=== PATIENT | female | born 1945 | race Caucasian/White ===

== ENCOUNTER 2019-06-20 08:15 | Inpatient (IN) | payer MEDICARE, MEDICAID, SELFPAY ==
[2019-06-20] VITALS (39 sets, daily range): BP systolic 72–159; BP diastolic 48–94; PULSE 54–79; RESP 15–32; TEMP 36.5–37.1; O2SAT 75–96; BMI 27.4
--- NOTE | 2019-06-20 08:30 | CT_ITS ---
WS: [id number] CT THORACIC SPINE HISTORY: fall/trauma/pain TECHNIQUE: Contiguous 2.5 mm axial images are reviewed to thoracic spine. Images are reformatted in s agittal and coronal planes. All CT scans at [facility] use at least one of these dose opt imization techniques: automated exposure control; mA and/or kV adjustment per patient size (includes targeted exams where dose is matched to clinical indication); or iterative reconstruction. DLP: 1604.62 mGy.cm COMPARISON: None available. Diffuse osteopenia with mild increase in thoracic kyphosis. 10% compression fracture involving the superior endplate of T11. There is no retropulsion of the vert ebral body. No fracture is noted into the posterior elements. Incompletely visualized L1 burst fractu re will be described on the lumbar CT. Nondisplaced fracture involving the LEFT transverse process of T12. Nondisplaced L1 transverse process fracture on the LEFT. No acute disc herniations or compromise of the central canal. Moderate size RIGHT paracentral disc pr otrusion at T8-9. Smaller RIGHT paracentral disc protrusion at T9-10. No significant cord compression . Atherosclerosis of the aorta. Visualized lungs are clear. CT/CT thoracic spin wo con* [id number] IMPRESSION: 1. Acute T11 compression fracture without retropulsion. 2. L1 burst compression fracture is incompletely visualized and will be better described on the CT lumbar spine to follow. 3. Nondisplaced T12 LEFT transverse process fracture. 4. Nondisplaced LEFT L1 transverse process fracture.
--- NOTE | 2019-06-20 08:30 | ECG_ITS ---
Measurements Intervals [place] Rate: 64 P: 77 DC: 138 QRS: 83 QRSD: 101 T: 75 QT: 409 QTc: 425 SINUS RHYTHM No previous ECG available for comparison Electronically Signed On 06-21-2019 16:29:05 CDT by Jayna Jennings M.D. [email or web address]
--- NOTE | 2019-06-20 08:30 | CT_ITS ---
WS: [id number] CT LUMBAR SPINE, noncontrast. HISTORY: fall/trauma; pain TECHNIQUE: Contiguous 2.5 mm axial imaging are performed. Sagittal and coronal reformats are submitte d and reviewed. All CT scans at [facility] use at least one of these dose optimization te chniques: automated exposure control; mA and/or kV adjustment per patient size (includes targeted exa ms where dose is matched to clinical indication); or iterative reconstruction. IV contrast: None DLP: 2005.96 mGy.cm COMPARISON: None available. L4 anterolisthesis by 2.5 mm. L1 mild burst compression fracture. There is a fracture that extends from anterior to posterior throu gh the superior portion of the vertebral body. There is anterior and posterior retropulsion of fragme nts. Posterior retropulsion by 4.8 mm. There is mild contact on the RIGHT lateral thecal sac and exte nding into the subarticular recess. There is contact on the RIGHT lateral thecal sac and probably the L1 nerve root. Nondisplaced LEFT L1 transverse process fracture. Nondisplaced LEFT L2 transverse process fracture. Nondisplaced LEFT L3 transverse process fracture. Mildly hyperdense mass in the posterior mid LEFT kidney measures 1.6 cm. Not identified on prior imag ing studies. Moderate atherosclerosis aorta. CT/CT lumbar spine wo con* [id number] IMPRESSION: 1. Mild L1 burst fracture with retropulsion by 4.8 mm and mild contact upon th e thecal sac and into the RIGHT subarticular recess. 2. Nondisplaced LEFT transverse process fractures at L1, L2 and L3. 3. Mildly hyperdense mass in the posterior mid LEFT kidney measures 1.6 cm. No t seen on prior studies. 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 Recommend fol low-up imaging evaluation. [address] evaluation would be most helpful and can be obtained on a nonurgent basis. 4.
--- NOTE | 2019-06-20 08:30 | CT_ITS ---
WS: [id number] CT HEAD NONCONTRAST HISTORY: dizziness TECHNIQUE: Contiguous axial imaging performed through the brain in 2.5 mm imaging. Bone and soft tiss ue windows. Sagittal and coronal reformats reviewed. All CT scans at [facility] use at ast one of these dose optimization techniques: automated exposure control; mA and/or kV adjustment pe r patient size (includes targeted exams where dose is matched to clinical indication); or iterative r econstruction. DLP: 1276.73 mGy.cm COMPARISON: 05/16/2006 No acute intracranial hemorrhage, midline shift or mass effect. Mild atrophy and mild chronic microvascular ischemic disease. Small lacunar infarct external capsule on the RIGHT. Moderate progression of chronic ischemic changes since the 2006 examination. There is a n area of decreased attenuation in the RIGHT frontotemporal lobe which could be a subacute infarct. T here is also mild cerebellar atrophy. Ventricles: Normal size with no hydrocephalus. Paranasal sinuses: As visualized are clear. Mastoid air cells: Well pneumatized. Calvarium and scalp: Skull is intact with no soft tissue edema or swelling. CT/CT head wo con* [id number] IMPRESSION: 1. No acute intracranial hemorrhage or edema. 2. Moderate chronic microvascular ischemic changes. Mild progression of ischem ic changes. Subacute infarct RIGHT frontal temporal region is not excluded but this may simply be progression of chronic ischemic disease.
--- NOTE | 2019-06-20 08:31 | XR_ITS ---
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 Hyperinflated lungs with no pneumonia. Chronic emphysema with normal vasculature. No pleural effusion or pneumothorax. Cardiac size: Mildly enlarged cardiac silhouette. Mediastinum/Aorta: Mild atherosclerosis aorta. Bones are severely osteopenic. Deformity RIGHT humeral head from prior fracture. XR/XR chest 1V portable [id number] IMPRESSION: Chronic emphysema and cardiomegaly. No acute cardiopulmonary disease.
--- NOTE | 2019-06-20 08:32 | ED_ITS ---
Documented by User: DOROTEO Martinez 06/20/19 12:42 HPI - Fall General: Chief Complaint: Fall Stated Complaint: fall, dizziness Time Seen by Provider: 06/20/19 08:16 Source: patient and EMS Mode of arrival: EMS Limitations: no limitations History of Present Illness: HPI Narrative: Patient is a 73-year-old female who presents to ED today after being brought by EMS for complaints of dizziness and a fall that occurred prior to arrival. Patient tells me she has been experiencing dizziness over the past week. She initially was seen by her PCP Dr. Salazar who recommended she begin doing Pedro maneuvers at home. She was seen again on 06/14 at an urgent care facility and diagnosed with labyrinthitis. She was given steroids in office and prescribed meclizine. Patient tells me she does feel like the maneuvers and meclizine was helping with the dizziness. She would often have periods where she would be dizzy free. She states earlier today she bent over to untie her dog when she became dizzy and fell. She is complaining of mid to lower back pain. She apparently was ambulatory when EMS arrived. Patient denies tinnitus or hearing loss. She has had no trauma or discharge from the ear. She does not complain of nausea/vomiting, headache, visual changes, slurred speech, facial drooping, numbness/tingling to face or extremities or weakness. MD complaint: fall and other (dizziness) Onset (ago): week(s) Fall from: standing Fall witnessed: no Place fall occurred: home Loss of consciousness: None Prolonged down time: no Symptoms prior to fall: dizziness Location of injury: back Associated symptoms-after fall: Reports vertigo; Denies abdominal pain, chest pain, headache(s), lightheadedness or neck pain Review of Systems General: Reports: 10 or more systems reviewed and unremarkable except in HPI and below Const: Denies: fever(s), chills, body aches or fatigue Eyes: Denies: change in vision, blurry vision, photophobia, eye discomfort, eye discharge, floaters or seeing flashes ENMT: Denies: throat pain, enlarged tonsils, odynophagia, swelling of lips/tongue, oral sores, dental pain, ear or mastoid pain, ear discharge, change in hearing, tinnitus, nasal discharge, nasal congestion, epistaxis, post nasal drip or sinus pain Card: Denies: chest pain, palpitations, irregular heart rhythm, edema, lightheadedness, syncope or pre-syncope Resp: Reports: dyspnea (chronic-COPD) GI: Denies: abdominal pain, nausea, vomiting or diarrhea Musc: Reports: back pain (from fall today); Denies: neck pain, extremity pain, extremity swelling, joint pain or joint swelling Skin/Breast: Denies: rash Neuro: Reports: dizziness and vertigo; Denies: headache(s), numbness in extremities, weakness in extremities or sensory changes All/Imm: Denies: facial swelling or seasonal rhinorrhea PFSH ED PFSH: Medical History (Updated 06/20/19 @ 16:27 by Pepito Oh MD) COPD (chronic obstructive pulmonary disease) Chronically uses 2 L per nasal cannula Coronary artery disease Depression Diabetes mellitus type 2 in obese Nephrolithiasis Peripheral neuropathy Surgical History (Updated 06/20/19 @ 16:27 by Pepito Oh MD) History of ankle surgery History of appendectomy History of bladder surgery History of carpal tunnel surgery History of cataract surgery History of shoulder surgery Hx of CABG 2004 Family History (Updated 06/20/19 @ 16:27 by Pepito Oh MD) Other Dementia Social History (Updated 06/20/19 @ 16:28 by Pepito Oh MD) Smoking and tobacco status: current every day smoker Alcohol intake: never Substance/Drug Use: never Physical Exam Const: COMMON NORMALS: average body habitus, patient oriented x3, no ocampo itations, healthy appearing, alert and well nourished GENERAL APPEARANCE: in distress (mild-complains of back pain) ORIENTATION/CONSCIOUSNESS: Yes oriented to person, Yes oriented to place and Yes oriented to time HENMT: COMMON NORMALS: normocephalic, atraumatic, hearing grossly normal bilaterally, external ears normal, EAC's normal, Normal external nose present, Normal nasal mucous membranes and turbinates present, moist oral mucous membranes and oropharynx normal HEAD & SCALP: normal to inspection, normocephalic and atraumatic FACE & SINUS: normal facial exam and sinuses nontender NOSE: Normal external nose present, Normal nares present and Normal nasal mucous membranes and turbinates present EXTERNAL EAR: Yes external ears normal EXTERNAL AUDITORY CANAL: EAC's normal TYMPANIC MEMBRANE: TM normal on the left and TM abnormal (mild fluid behind R) MOUTH: Normal oral and palatal mucosa present, lip normal and tongue normal THROAT: posterior oropharynx normal, tonsils normal and uvula midline Eye: COMMON NORMALS: Equal, round and reactive pupils present, EOMs intact bilaterally, conjunctivae normal and no scleral icterus GENERAL EYE: appearance normal, both eyes and all related structures VISUAL ACUITY: Yes acuity normal CONJUNCTIVA: Yes conjunctivae normal PUPIL: Yes Equal, round and reactive pupils present OTHER: no nystagmus Neck/C-Spine: COMMON NORMALS: full ROM, no lymphadenopathy and no meningeal signs Chest: COMMONS NORMALS: normal inspection of the chest and normal palpation of entire chest wall Resp: COMMON NORMALS: normal respiratory effort and clear to auscultation bilaterally AUSCULTATION: clear to auscultation bilaterally Cardio: COMMON NORMALS: regular rate and regular rhythm RATE: regular rate RHYTHM: regular rhythm GI: COMMON NORMALS: Normal to inspection, nondistended, normoactive bowel sounds present, Soft to palpation, non-tender, No hepatosplenomegaly present and no masses PALPATION: Yes Soft to palpation and Yes No hepatosplenomegaly present : COMMON NORMALS: Yes no CVA tenderness BLADDER/KIDNEY EXAM: Yes no CVA tenderness Back/Pelvis: COMMON NORMALS: no CVA tenderness THORACIC SPINE/UPPER BACK: Yes thoracic spinal tenderness (lower T spine) and No paraspinal muscle tenderness LUMBAR SPINE/LOWER BACK: Yes lumbar spinal tenderness (upper L spine) and No paraspinal muscle tenderness SACROILIAC JOINTS: Yes SI joints normal Extremity: COMMON NORMALS: normal to inspection and full ROM Neuro: ROBERTO COMA SCALE: document GCS findings Roberto coma scale eye opening: Spontaneous Roberto coma scale verbal response: Orientated [place] coma scale motor response: Obey commands Roberto coma scale total score: 15 COMMON NORMALS: patient oriented x3, CN's II-XII intact bilaterally, moves all extremities, no focal motor deficits and no sensory deficits noted SENSORIUM/ORIENTATION: Yes alert, Yes oriented to person, Yes oriented to place and Yes oriented to time MENINGEAL SIGNS: Yes no meningeal signs COORDINATION/BALANCE: [id number]-rl-[id number] test normal and fbod-kl-soul test normal SPEECH: speech normal MOTOR EXAM: 5/5 motor strength present throughout COORDINATION: rbbeve-qw-gzdb test normal and ggzn-kv-jhmv test normal Skin: COMMON NORMALS: no rashes or lesions noted GENERAL SKIN EXAM: no rashes or lesions noted Course Consultations: Consultation #1: Dr. Alfaro-stated if patient was stable to DC (would need to assess fall risk factors and recommended she have someone stay with her at all times) then we could place her in TLSO brace and he would see in office in 2 weeks; contact him again after decision was made to admit patient and he stated he would be willing to consult on patient while in the hospital. Vital Signs: Vital signs: Vital Signs Temperature 97.6 F 06/21/19 12:00 Pulse Rate 67 06/21/19 12:00 Respiratory Rate 18 06/21/19 13:09 Blood Pressure 111/62 06/21/19 12:00 Pulse Oximetry 94 06/21/19 12:00 MDM - Fall MDM Narrative: Medical decision making narrative: Patient is a nice 73-year-old female who presents to ED today with complaints of dizziness x1 week and a fall. Patient has multiple back fractures including a compression fracture at T11, a burst fracture at L1 with retropulsion, and nondisplaced left T12, L1, L2, L3 transverse process fractures. She is complained of dizziness over the past week. She is an uncontrolled noncompliant diabetic (reports nor bhanu sugars run in the 320s). Patient lives alone. Given the entire clinical picture I feel patient is too much of a fall risk to be discharged home. Spoke to Dr. Franks and we will admit to hospitalist for further evaluation, pain control, and possible placement into a longterm facility. Lab Data: Labs: Lab Results 06/20/19 06/20/19 06/20/19 Range/Units 09:34 09:34 09:34 WBC 12.7 H (4.0-10.0) 10^3/ uL RBC 5.88 H (4.1-5.3) 10^6/u L Hgb 17.1 H (11.5-15.3) g/dL Hct 53.8 H (37.0-47.0) % MCV 91.5 (81-99) fL MCH 29.1 (28.0-34.0) pg MCHC 31.8 (30.0-36.0) g/dL RDW 14.0 (12.1-15.1) % Plt Count 272 (130-400) 10^3/c mm MPV 9.3 (7.4-10.4) fL Neut % (Auto) 76.2 % Lymph % (Auto) 15.0 % [place] % (Auto) 4.6 % Eos % (Auto) 1.6 % Baso % (Auto) 0.9 % Neut # (Auto) 9.7 H (1.8-7.7) 10^3/u L Lymph # (Auto) 1.9 (0.8-4.8) 10^3/u L [place] # (Auto) 0.6 (0.2-0.9) 10^3/u L Eos # (Auto) 0.2 (0.0-0.8) 10^3/u L Baso # (Auto) 0.1 (0.0-0.1) 10^3/u L Nucleated RBC % (a uto) 0 % Nucleated RBCs # 0.0 /100WBC Specimen Type Sample Site ABG pH (7.35-7.45) ABG pCO2 (35-45) mmHg ABG pO2 (80.0-100.0) mmH g ABG HCO3 (22-26) mmol/L ABG O2 Saturation ABG Base Excess (-2.0-2.0) mmol/ L David Test A-a O2 Gradient (5-10) mmHg Hematocrit (37-47) % Hgb O2 Saturation (95-100) % Carboxyhemoglobin (0.4-20.1) %THgb Methemoglobin (0.4-1.5) % Total Hemoglobin (12-16) g/dL Ionized Calcium (1.1-1.4) mmol/L O2 Delivery Device O2 Liters/Min % FiO2 % [employer] Tester ID Sodium 136 (136-145) mmol/L Potassium 6.0 H (3.5-5.1) mmol/L Chloride 94 L (98-107) mmol/L Carbon Dioxide 30 H (22-29) mmol/L Anion Gap 18.0 (5-19) BUN 17 (8-23) mg/dL Creatinine 0.9 (0.5-0.9) mg/dL Glucose 396 H (65-115) mg/dL Calculated Osmolal ity 295 (285-295) mOsm/k g Calcium 10.6 H (8.5-10.5) mg/dL Magnesium 1.7 (1.7-2.3) mg/dL Total Bilirubin 0.6 (0.15-1.2) mg/dL AST 17 (0-32) U/L ALT 22 (0-33) U/L Alkaline Phosphata se 99 (35-105) IU/L Total Protein 8.0 (6.6-8.7) g/dL Albumin 4.1 (3.5-5.2) g/dL Globulin 3.9 (1.3-4.6) g/dL Urine Color (Yellow) Urine Appearance (CLEAR) Urine pH (5-7) Ur Specific Gravit y (1.005-1.030) Urine Protein (Negative) Urine Glucose (UA) (Normal) Urine Ketones (Negative) Urine Blood (Negative) Urine Nitrate (Negative) Urine Bilirubin (NEGATIVE) Urine Urobilinogen (Negative) mg/dL Ur Leukocyte Yusra ase (Negative) Urine RBC (0-2) /hpf Urine WBC (0-5) /hpf Ur Squamous Epith Cells (0-5) Urine Bacteria (NONE) Serum Ketones Negative (Negative) 06/20/19 06/20/19 06/20/19 Range/Units 09:50 10:30 12:05 WBC (4.0-10.0) 10^3/ uL RBC (4.1-5.3) 10^6/u L Hgb (11.5-15.3) g/dL Hct (37.0-47.0) % MCV (81-99) fL MCH (28.0-34.0) pg MCHC (30.0-36.0) g/dL RDW (12.1-15.1) % Plt Count (130-400) 10^3/c mm MPV (7.4-10.4) fL Neut % (Auto) % Lymph % (Auto) % [place] % (Auto) % Eos % (Auto) % Baso % (Auto) % Neut # (Auto) (1.8-7.7) 10^3/u L Lymph # (Auto) (0.8-4.8) 10^3/u L [place] # (Auto) (0.2-0.9) 10^3/u L Eos # (Auto) (0.0-0.8) 10^3/u L Baso # (Auto) (0.0-0.1) 10^3/u L Nucleated RBC % (a uto) % Nucleated RBCs # /100WBC Specimen Type Arterial Sample Site Radial, right ABG pH 7.31 L (7.35-7.45) ABG pCO2 57.0 H (35-45) mmHg ABG pO2 74.1 L (80.0-100.0) mmH g ABG HCO3 28.5 H (22-26) mmol/L ABG O2 Saturation 94.2 ABG Base Excess 0.5 (-2.0-2.0) mmol/ L David Test Pos A-a O2 Gradient 109.9 H (5-10) mmHg Hematocrit 54.2 H (37-47) % Hgb O2 Saturation 90.3 L (95-100) % Carboxyhemoglobin 3.3 (0.4-20.1) %THgb Methemoglobin 0.8 (0.4-1.5) % Total Hemoglobin 17.7 H (12-16) g/dL Ionized Calcium 1.3 (1.1-1.4) mmol/L O2 Delivery Device Nc O2 Liters/Min 4.0 % FiO2 36.0 % [employer] Tester ID gd Sodium 135.0 135 L (136-145) mmol/L Potassium 5.5 H 6.0 H (3.5-5.1) mmol/L Chloride 95 L (98-107) mmol/L Carbon Dioxide 30 H (22-29) mmol/L Anion Gap 16.0 (5-19) BUN 19 (8-23) mg/dL Creatinine 1.0 H (0.5-0.9) mg/dL Glucose 394.0 H 404 H (65-115) mg/dL Calculated Osmolal ity 293 (285-295) mOsm/k g Calcium 10.2 (8.5-10.5) mg/dL Magnesium (1.7-2.3) mg/dL Total Bilirubin (0.15-1.2) mg/dL AST (0-32) U/L ALT (0-33) U/L Alkaline Phosphata se (35-105) IU/L Total Protein (6.6-8.7) g/dL Albumin (3.5-5.2) g/dL Globulin (1.3-4.6) g/dL Urine Color Yellow (Yellow) Urine Appearance Clear (CLEAR) Urine pH 5 (5-7) Ur Specific Gravit y 1.020 (1.005-1.030) Urine Protein Trace (Negative) Urine Glucose (UA) 4+ H (Normal) Urine Ketones Negative (Negative) Urine Blood Neg (Negative) Urine Nitrate Negative (Negative) Urine Bilirubin Neg (NEGATIVE) Urine Urobilinogen Norm (Negative) mg/dL Ur Leukocyte Yusra ase Negative (Negative) Urine RBC None (0-2) /hpf Urine WBC 0-4 H (0-5) /hpf Ur Squamous Epith Cells None (0-5) Urine Bacteria 1+ H (NONE) Serum Ketones (Negative) Imaging Data^: CXR: Radiologist's impression: [place] [address] XRay Report Signed Patient: Deyanira Gonsales Unit #: [id number] : 1945 Age/Sex: 73 / F ADM Date: 06/20/19 Loc: ER Room/Bed: Attending Dr: Ordering Provider/Ordering MD: Antonia Gerardo Date of Service: 06/20/19 Procedure(s): XR chest 1V portable [id number] Accession Number(s): [id number] Report Number: [id number] WS: [id number] PORTABLE CHEST HISTORY: dizzy/fall COMPARISON: 02/16/2012 Prior CABG. Hyperinflated lungs with no pneumonia. Chronic emphysema with normal vasculature. No pleural effusion or pneumothorax. Cardiac size: Mildly enlarged cardiac silhouette. Mediastinum/Aorta: Mild atherosclerosis aorta. Bones are severely osteopenic. Deformity RIGHT humeral head from prior fracture. XR/XR chest 1V portable [id number] IMPRESSION: Chronic emphysema and cardiomegaly. No acute cardiopulmonary disease. Dictated By: Awa Jerez DO Signed By: Awa Jerez DO Signed Date/Time: 06/20/19853 DD/ 2 CT thoracic : Radiologist's impression: [place] [address] CT Scan Report Signed Patient: Deyanira Gonsales Unit #: [id number] : 1945 Age/Sex: 73 / F ADM Date: 06/20/19 Loc: ER Room/Bed: Attending Dr: Ordering Provider/Ordering MD: Antonia Gerardo Date of Service: 06/20/19 Procedure(s): CT thoracic spin wo con* [id number] Accession Number(s): [id number] Report Number: [id number] WS: [id number] CT THORACIC SPINE HISTORY: fall/trauma/pain TECHNIQUE: Contiguous 2.5 mm axial images are reviewed to thoracic spine. Images are reformatted in sagittal and coronal planes. All CT scans at [facility] use at least one of these dose optimization techniques: automated exposure control; mA and/or kV adjustment per patient size (includes targeted exams where dose is matched to clinical indication); or iterative reconstruction. DLP: 1604.62 mGy.cm COMPARISON: None available. Diffuse osteopenia with mild increase in thoracic kyphosis. 10% compression fracture involving the superior endplate of T11. There is no retropulsion of the vertebral body. No fracture is noted into the posterior elements. Incompletely visualized L1 burst fracture will be described on the lumbar CT. Nondisplaced fracture involving the LEFT transverse process of T12. Nondisplaced L1 transverse process fracture on the LEFT. No acute disc herniations or compromise of the central canal. Moderate size RIGHT paracentral disc protrusion at T8-9. Smaller RIGHT paracentral disc protrusion at T9-10. No significant cord compression. Atherosclerosis of the aorta. Visualized lungs are clear. CT/CT thoracic spin wo con* [id number] IMPRESSION: 1. Acute T11 compression fracture without retropulsion. 2. L1 burst compression fracture is incompletely visualized and will be better described on the CT lumbar spine to follow. 3. Nondisplaced T12 LEFT transverse process fracture. 4. Nondisplaced LEFT L1 transverse process fracture. Dictated By: Aaw Jerez DO Signed By: Awa Jerez DO Signed Date/Time: 06/20/19908 DD/ CT lumbar: Radiologist's impression: [facility] [address] [place] [address] CT Scan Report Signed Patient: Deyanira Gonsales Unit #: [id number] : 1945 Age/Sex: 73 / F ADM Date: 06/20/19 Loc: ER Room/Bed: Attending Dr: Ordering Provider/Ordering MD: Antonia Gerardo Date of Service: 06/20/19 Procedure(s): CT lumbar spine wo con* [id number] Accession Number(s): [id number] Report Number: [id number] WS: [id number] CT LUMBAR SPINE, noncontrast. HISTORY: fall/trauma; pain TECHNIQUE: Contiguous 2.5 mm axial imaging are performed. Sagittal and coronal reformats are submitted and reviewed. All CT scans at [facility] use at least one of these dose optimization techniques: automated exposure control; mA and/or kV adjustment per patient size (includes targeted exams where dose is matched to clinical indication); or i terative reconstruction. IV contrast: None DLP: 2005.96 mGy.cm COMPARISON: None available. L4 anterolisthesis by 2.5 mm. L1 mild burst compression fracture. There is a fracture that extends from anterior to posterior through the superior portion of the vertebral body. There is anterior and posterior retropulsion of fragments. Posterior retropulsion by 4.8 mm. There is mild contact on the RIGHT lateral thecal sac and extending into the subarticular recess. There is contact on the RIGHT lateral thecal sac and probably the L1 nerve root. Nondisplaced LEFT L1 transverse process fracture. Nondisplaced LEFT L2 transverse process fracture. Nondisplaced LEFT L3 transverse process fracture. Mildly hyperdense mass in the posterior mid LEFT kidney measures 1.6 cm. Not identified on prior imaging studies. Moderate atherosclerosis aorta. CT/CT lumbar spine wo con* [id number] IMPRESSION: 1. Mild L1 burst fracture with retropulsion by 4.8 mm and mild contact upon the thecal sac and into the RIGHT subarticular recess. 2. Nondisplaced LEFT transverse process fractures at L1, L2 and L3. 3. Mildly hyperdense mass in the posterior mid LEFT kidney measures 1.6 cm. Not seen on prior studies. 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 Recommend follow-up imaging evaluation. [address] evaluation would be most helpful and can be obtained on a nonurgent basis. 4. Dictated By: Awa Jerez DO Signed By: Awa Jerez DO Signed Date/Time: 06/20/19916 DD/ 9 CT head : Radiologist's impression: [facility] [address] [place] [address] CT Scan Report Signed Patient: Deyanira Gonsales Unit #: [id number] : 1945 Age/Sex: 73 / F ADM Date: 06/20/19 Loc: ER Room/Bed: Attending Dr: Ordering Provider/Ordering MD: Antonia Gerardo Date of Service: 06/20/19 Procedure(s): CT head wo con* 16202 Accession Number(s): [id number] Report Number: [id number] WS: [id number] CT HEAD NONCONTRAST HISTORY: dizziness TECHNIQUE: Contiguous axial imaging performed through the brain in 2.5 mm imaging. Bone and soft tissue windows. Sagittal and coronal reformats reviewed. All CT scans at [facility] use at least one of these dose optimization techniques: automated exposure control; mA and/or kV adjustment per patient size (includes targeted exams where dose is matched to clinical indication); or iterative reconstruction. DLP: 1276.73 mGy.cm COMPARISON: 05/16/2006 No acute intracranial hemorrhage, midline shift or mass effect. Mild atrophy and mild chronic microvascular ischemic disease. Small lacunar infarct external capsule on the RIGHT. Moderate progression of chronic ischemic changes since the 2006 examination. There is an area of decreased attenuation in the RIGHT frontotemporal lobe which could be a subacute infarct. There is also mild cerebellar atrophy. Ventricles: Normal size with no hydrocephalus. Paranasal sinuses: As visualized are clear. Mastoid air cells: Well pneumatized. Calvarium and scalp: Skull is intact with no soft tissue edema or swelling. CT/CT head wo con* [id number] IMPRESSION: 1. No acute intracranial hemorrhage or edema. 2. Moderate chronic microvascular ischemic changes. Mild progression of ischemic changes. Subacute infarct RIGHT frontal temporal region is not excluded but this may simply be progression of chronic ischemic disease. Dictated By: Awa Jerez DO Signed By: Awa Jerez DO Signed Date/Time: 06/20/19936 DD/ 7 CT cervical : Radiologist's impression: [facility] [address] [place] [address] CT Scan Report Signed Patient: Deyanira Gonsales Unit #: [id number] : 1945 Age/Sex: 73 / F ADM Date: 06/20/19 Loc: ER Room/Bed: Attending Dr: Ordering Provider/Ordering MD: Antonia Gerardo Date of Service: 06/20/19 Procedure(s): CT cervical spin wo con* [id number] Accession Number(s): [id number] Report Number: [id number] WS: [id number] CT CERVICAL SPINE HISTORY: trauma TECHNIQUE: Contiguous 2.5 mm axial imaging performed through the entire cervical spine. Sagittal and coronal reformats also performed. All CT scans at [facility] use at least one of these dose optimization techniques: automated exposure control; mA and/or kV adjustment per patient size (includes targeted exams where dose is matched to clinical indication); or iterative reconstruction. DLP: 615.02 mGy.cm COMPARISON: 05/23/2005 Straightening and slight reversal normal cervical lordosis. Severe disc space narrowing and desiccation and sclerotic endplate changes at C5-6. Endplate osteophytes throughout the cervical spine but most significant also at C5-6. Craniocervical junction and the lateral masses of C1 and C2 are normal. Facets are normally aligned. No cervical spine fracture. Moderate central disc protrusion at C3-4 with contact on the cord and deformity with mild LEFT foraminal stenosis. Broad-based disc bulging at C4-5. Osteophytic ridging with mild contact on the RIGHT lateral thecal sac and moderate foraminal stenosis at C5-6. CT/CT cervical spin wo con* [id number] IMPRESSION: 1. No acute cervical spine fracture. 2. Severe degenerative disc disease at C5-6 with mild central and moderate RIGHT foraminal stenosis. 3. Moderate central disc protrusion at C3-4 with cord contact and mild deformity. Dictated By: Awa Jerez DO Signed By: Awa Jerez DO Signed Date/Time: 06/20/19 1114 DD/ 1109 Discharge Plan Discharge Patient Disposition: Admitted As Inpatient Admit Provider: Pepito Oh Clinical Impression: Dizziness, At risk for falling, Non compliance w medication regimen, Hyperkalemia Fracture of transverse process of thoracic vertebra Qualifiers: Encounter type: initial encounter Fracture type: closed Qualified Code(s): S22.009A - Unspecified fracture of unspecified thoracic vertebra, initial encounter for closed fracture Closed fracture of transverse process of lumbar vertebra Qualifiers: Encounter type: initial encounter Qualified Code(s): S32.009A - Unspecified fracture of unspecified lumbar vertebra, initial encounter for closed fracture Closed wedge compression fracture of T11 vertebra Qualifiers: Encounter type: initial encounter Qualified Code(s): S22.080A - Wedge compression fracture of T11-T12 vertebra, initial encounter for closed fracture Burst fracture of lumbar vertebra Qualifiers: Encounter type: initial encounter Fracture type: closed Qualified Code(s): S32.001A - Stable burst fracture of unspecified lumbar vertebra, initial encounter for closed fracture Uncontrolled diabetes mellitus Qualifiers: Diabetes mellitus type: type 2 Glycemic state: with hyperglycemia Qualified Code(s): E11.65 - Type 2 diabetes mellitus with hyperglycemia Condition: Stable Referrals: Guy Salazar DO [Primary Care Provider] - Discharge Date/Time: 06/20/19 15:55 Coding Level of Care Code ED Survey Superintendent for Chg Fwd Exam Comprehensive Documented by User: Trung Franks DO 06/21/19 13:25 HPI - Fall General: Chief Complaint: Fall Stated Complaint: fall, dizziness Time Seen by Provider: 06/20/19 08:16 PFSH ED PFSH: Medical History (Updated 06/20/19 @ 16:27 by Pepito Oh MD) COPD (chronic obstructive pulmonary disease) Chronically uses 2 L per nasal cannula Coronary artery disease Depression Diabetes mellitus type 2 in obese Nephrolithiasis Peripheral neuropathy Surgical History (Updated 06/20/19 @ 16:27 by Pepito Oh MD) History of ankle surgery History of appendectomy History of bladder surgery History of carpal tunnel surgery History of cataract surgery History of shoulder surgery Hx of CABG 2004 Family History (Updated 06/20/19 @ 16:27 by Pepito Oh MD) Other Dementia Social History (Updated 06/20/19 @ 16:28 by Pepito Oh MD) Smoking and tobacco status: current every day smoker Alcohol intake: never Substance/Drug Use: never Course Vital Signs: Vital signs: Vital Signs Temperature 97.6 F 06/21/19 12:00 Pulse Rate 67 06/21/19 12:00 Respiratory Rate 18 06/21/19 13:09 Blood Pressure 111/62 06/21/19 12:00 Pulse Oximetry 94 06/21/19 12:00 MDM - Fall MDM Narrative: Medical decision making narrative: Discussed with DOROTEO Gerardo who initially seen the patient we will go ahead and admit her with the plan to get her to rehab care she will be need to be admitted for pain control at this time we did review the chart and the CT with Dr. Alfaro he does not feel there is any surgical intervention at this time she just needs a NAIL WELTER brace and he will follow-up with the remainder of her care for the fractures as an outpatient basis she may be a candidate for kyphoplasty as well. Lab Data: Labs: Lab Results 06/20/19 06/20/19 06/20/19 Range/Units 09:34 09:34 09:34 WBC 12.7 H (4.0-10.0) 10^3/ uL RBC 5.88 H (4.1-5.3) 10^6/u L Hgb 17.1 H (11.5-15.3) g/dL Hct 53.8 H (37.0-47.0) % MCV 91.5 (81-99) fL MCH 29.1 (28.0-34.0) pg MCHC 31.8 (30.0-36.0) g/dL RDW 14.0 (12.1-15.1) % Plt Count 272 (130-400) 10^3/c mm MPV 9.3 (7.4-10.4) fL Neut % (Auto) 76.2 % Lymph % (Auto) 15.0 % [place] % (Auto) 4.6 % Eos % (Auto) 1.6 % Baso % (Auto) 0.9 % Neut # (Auto) 9.7 H (1.8-7.7) 10^3/u L Lymph # (Auto) 1.9 (0.8-4.8) 10^3/u L Man[place]e # (Auto) 0.6 (0.2-0.9) 10^3/u L Eos # (Auto) 0.2 (0.0-0.8) 10^3/u L Baso # (Auto) 0.1 (0.0-0.1) 10^3/u L Nucleated RBC % (a uto) 0 % Nucleated RBCs # 0.0 /100WBC Specimen Type Sample Site ABG pH (7.35-7.45) ABG pCO2 (35-45) mmHg ABG pO2 (80.0-100.0) mmH g ABG HCO3 (22-26) mmol/L ABG O2 Saturation ABG Base Excess (-2.0-2.0) mmol/ L Davdi Test A-a O2 Gradient (5-10) mmHg Hematocrit (37-47) % Hgb O2 Saturation (95-100) % Carboxyhemoglobin (0.4-20.1) %THgb Methemoglobin (0.4-1.5) % Total Hemoglobin (12-16) g/dL Ionized Calcium (1.1-1.4) mmol/L O2 Delivery Device O2 Liters/Min % FiO2 % [employer] Tester ID Sodium 136 (136-145) mmol/L Potassium 6.0 H (3.5-5.1) mmol/L Chloride 94 L (98-107) mmol/L Carbon Dioxide 30 H (22-29) mmol/L Anion Gap 18.0 (5-19) BUN 17 (8-23) mg/dL Creatinine 0.9 (0.5-0.9) mg/dL Glucose 396 H (65-115) mg/dL Calculated Osmolal ity 295 (285-295) mOsm/k g Calcium 10.6 H (8.5-10.5) mg/dL Magnesium 1.7 (1.7-2.3) mg/dL Total Bilirubin 0.6 (0.15-1.2) mg/dL AST 17 (0-32) U/L ALT 22 (0-33) U/L Alkaline Phosphata se 99 (35-105) IU/L Total Protein 8.0 (6.6-8.7) g/dL Albumin 4.1 (3.5-5.2) g/dL Globulin 3.9 (1.3-4.6) g/dL Urine Color (Yellow) Urine Appearance (CLEAR) Urine pH (5-7) Ur Specific Gravit y (1.005-1.030) Urine Protein (Negative) Urine Glucose (UA) (Normal) Urine Ketones (Negative) Urine Blood (Negative) Urine Nitrate (Negative) Urine Bilirubin (NEGATIVE) Urine Urobilinogen (Negative) mg/dL Ur Leukocyte Yusra ase (Negative) Urine RBC (0-2) /hpf Urine WBC (0-5) /hpf Ur Squamous Epith Cells (0-5) Urine Bacteria (NONE) Serum Ketones Negative (Negative) 06/20/19 06/20/19 06/20/19 Range/Units 09:50 10:30 12:05 WBC (4.0-10.0) 10^3/ uL RBC (4.1-5.3) 10^6/u L Hgb (11.5-15.3) g/dL Hct (37.0-47.0) % MCV (81-99) fL MCH (28.0-34.0) pg MCHC (30.0-36.0) g/dL RDW (12.1-15.1) % Plt Count (130-400) 10^3/c mm MPV (7.4-10.4) fL Neut % (Auto) % Lymph % (Auto) % [place] % (Auto) % Eos % (Auto) % Baso % (Auto) % Neut # (Auto) (1.8-7.7) 10^3/u L Lymph # (Auto) (0.8-4.8) 10^3/u L [place] # (Auto) (0.2-0.9) 10^3/u L Eos # (Auto) (0.0-0.8) 10^3/u L Baso # (Auto) (0.0-0.1) 10^3/u L Nucleated RBC % (a uto) % Nucleated RBCs # /100WBC Specimen Type Arterial Sample Site Radial, right ABG pH 7.31 L (7.35-7.45) ABG pCO2 57.0 H (35-45) mmHg ABG pO2 74.1 L (80.0-100.0) mmH g ABG HCO3 28.5 H (22-26) mmol/L ABG O2 Saturation 94.2 ABG Base Excess 0.5 (-2.0-2.0) mmol/ L David Test Pos A-a O2 Gradient 109.9 H (5-10) mmHg Hematocrit 54.2 H (37-47) % Hgb O2 Saturation 90.3 L (95-100) % Carboxyhemoglobin 3.3 (0.4-20.1) %THgb Methemoglobin 0.8 (0.4-1.5) % Total Hemoglobin 17.7 H (12-16) g/dL Ionized Calcium 1.3 (1.1-1.4) mmol/L O2 Delivery Device Nc O2 Liters/Min 4.0 % FiO2 36.0 % [employer] Tester ID gd Sodium 135.0 135 L (136-145) mmol/L Potassium 5.5 H 6.0 H (3.5-5.1) mmol/L Chloride 95 L (98-107) mmol/L Carbon Dioxide 30 H (22-29) mmol/L Anion Gap 16.0 (5-19) BUN 19 (8-23) mg/dL Creatinine 1.0 H (0.5-0.9) mg/dL Glucose 394.0 H 404 H (65-115) mg/dL Calculated Osmolal ity 293 (285-295) mOsm/k g Calcium 10.2 (8.5-10.5) mg/dL Magnesium (1.7-2.3) mg/dL Total Bilirubin (0.15-1.2) mg/dL AST (0-32) U/L ALT (0-33) U/L Alkaline Phosphata se (35-105) IU/L Total Protein (6.6-8.7) g/dL Albumin (3.5-5.2) g/dL Globulin (1.3-4.6) g/dL Urine Color Yellow (Yellow) Urine Appearance Clear (CLEAR) Urine pH 5 (5-7) Ur Specific Gravit y 1.020 (1.005-1.030) Urine Protein Trace (Negative) Urine Glucose (UA) 4+ H (Normal) Urine Ketones Negative (Negative) Urine Blood Neg (Negative) Urine Nitrate Negative (Negative) Urine Bilirubin Neg (NEGATIVE) Urine Urobilinogen Norm (Negative) mg/dL Ur Leukocyte Yusra ase Negative (Negative) Urine RBC None (0-2) /hpf Urine WBC 0-4 H (0-5) /hpf Ur Squamous Epith Cells None (0-5) Urine Bacteria 1+ H (NONE) Serum Ketones (Negative) Discharge Plan Discharge Patient Disposition: Admitted As Inpatient Admit Provider: Pepito Oh Clinical Impression: Dizziness, At risk for falling, Non compliance w medication regimen, Hyperkalemia Fracture of transverse process of thoracic vertebra Qualifiers: Encounter type: initial encounter Fracture type: closed Qualified Code(s): S22.009A - Unspecified fracture of unspecified thoracic vertebra, initial encounter for closed fracture Closed fracture of transverse process of lumbar vertebra Qualifiers: Encounter type: initial encounter Qualified Code(s): S32.009A - Unspecified fracture of unspecified lumbar vertebra, initial encounter for closed fracture Closed wedge compression fracture of T11 vertebra Qualifiers: Encounter type: initial encounter Qualified Code(s): S22.080A - Wedge compression fracture of T11-T12 vertebra, initial encounter for closed fracture Burst fracture of lumbar vertebra Qualifiers: Encounter type: initial encounter Fracture type: closed Qualified Code(s): S32.001A - Stable burst fracture of unspecified lumbar vertebra, initial encounter for closed fracture Uncontrolled diabetes mellitus Qualifiers: Diabetes mellitus type: type 2 Glycemic state: with hyperglycemia Qualified Cod e(s): E11.65 - Type 2 diabetes mellitus with hyperglycemia Condition: Stable Referrals: Guy Salazar DO [Primary Care Provider] - Discharge Date/Time: 06/20/19 15:55 Coding Level of Care Code ED Survey Superintendent for g Fwd Exam Comprehensive
[2019-06-20] MEDS: meclizine 25 mg tablet PO (09:19)
[2019-06-20] MEDS: ondansetron 2 mg/ML SDV 2 mL 4 MG IVP (09:25)
[2019-06-20] MEDS: morphine 4 mg/mL SDV 1 mL IVP ×2 (09:43→13:32)
[2019-06-20 09:45] LABS: Basophils # 0.1 10^3/uL (0.0-0.1); Basophils % 0.9 %; Eosinophils # 0.2 10^3/uL (0.0-0.8); Eosinophils % 1.6 %; Hematocrit 53.8 % (37.0-47.0); Hemoglobin 17.1 g/dL (11.5-15.3); Lymphocytes # 1.9 10^3/uL (0.8-4.8); Mean Corpuscular HGB Conc 31.8 g/dL (30.0-36.0); Mean Corpuscular Hemoglobin 29.1 pg (28.0-34.0); Mean Corpuscular Volume 91.5 fL (81-99); Mean Platelet Volume 9.3 fL (7.4-10.4); Monocytes # 0.6 10^3/uL (0.2-0.9); Monocytes % 4.6 %; Neutrophils # 9.7 10^3/uL (1.8-7.7); Neutrophils % 76.2 %; Nucleated Red Blood Cells % 0 %; Platelet Count 272 10^3/cmm (130-400); Red Blood Count 5.88 10^6/uL (4.1-5.3); White Blood Count 12.7 10^3/uL (4.0-10.0)
[2019-06-20 10:05] LABS: Alanine Aminotransferase 22 U/L (0-33); Albumin Level 4.1 g/dL (3.5-5.2); Alkaline Phosphatase 99 IU/L (35-105); Aspartate Amino Transferase 17 U/L (0-32); Blood Urea Nitrogen 17 mg/dL (8-23); Calcium 10.6 mg/dL (8.5-10.5); Carbon Dioxide 30 mmol/L (22-29); Chloride 94 mmol/L (98-107); Globulin 3.9 g/dL (1.3-4.6); Glucose 396 mg/dL (65-115); Magnesium 1.7 mg/dL (1.7-2.3); Osmolality Calculated 295 mOsm/kg (285-295); Sodium 136 mmol/L (136-145); Total Bilirubin 0.6 mg/dL (0.15-1.2)
[2019-06-20 10:12] LABS: Add Urine Culture? No; Add Urine Microscopic? YES; Bacteria Urine 1+; Bilirubin Urine Neg (NEGATIVE); Blood Urine Neg (Negative); Glucose Urine UA 4+ (Normal); Ketones Urine Negative (Negative); Leukocyte Esterase Urine Negative (Negative); Nitrate Urine Negative (Negative); Protein Urine Trace (Negative); Urine Appearance Clear (CLEAR); Urine Color Yellow (Yellow); Urobilinogen Urine Norm (Negative); WBC Urine 0-4 /hpf (0-5); pH Urine 5 (5-7)
[2019-06-20] MEDS: fentaNYL 50 mcg/mL INJ 2mL IVP (10:17)
--- NOTE | 2019-06-20 10:22 | CT_ITS ---
WS: [id number] CT CERVICAL SPINE HISTORY: trauma TECHNIQUE: Contiguous 2.5 mm axial imaging performed through the entire cervical spine. Sagittal and coronal reformats also performed. All CT scans at [facility] use at least one of these do se optimization techniques: automated exposure control; mA and/or kV adjustment per patient size (inc ludes targeted exams where dose is matched to clinical indication); or iterative reconstruction. DLP: 615.02 mGy.cm COMPARISON: 05/23/2005 Straightening and slight reversal normal cervical lordosis. Severe disc space narrowing and desiccati on and sclerotic endplate changes at C5-6. Endplate osteophytes throughout the cervical spine but mos t significant also at C5-6. Craniocervical junction and the lateral masses of C1 and C2 are normal. F acets are normally aligned. No cervical spine fracture. Moderate central disc protrusion at C3-4 with contact on the cord and deformity with mild LEFT forami nal stenosis. Broad-based disc bulging at C4-5. Osteophytic ridging with mild contact on the RIGHT lateral thecal sac and moderate foraminal stenosis at C5-6. CT/CT cervical spin wo con* [id number] IMPRESSION: 1. No acute cervical spine fracture. 2. Severe degenerative disc disease at C5-6 with mild central and moderate RIG HT foraminal stenosis. 3. Moderate central disc protrusion at C3-4 with cord contact and mild deformi ty.
[2019-06-20 10:44] LABS: Ketone (Acetest) Serum Negative (Negative)
[2019-06-20 10:45] LABS: ABG PH Result 7.31 (7.35-7.45); Alveolar-Arterial Oxygen Gradi 109.9 mmHg (5-10); Arterial Blood Gas Hematocrit 54.2 % (37-47); Base Excess ABG 0.5 mmol/L (-2.0-2.0); Blood Gas Allen Test Pos; Blood Gas Sample Site Radial, right; Blood Gas Sample Type Arterial; Carboxyhemoglobin 3.3 %THgb (0.4-20.1); HCO3 ABG 28.5 mmol/L (22-26); HGB O2 Sat 90.3 % (95-100); Ionized Calcium Level - ABG 1.3 mmol/L (1.1-1.4); Methemoglobin 0.8 % (0.4-1.5); Oxygen Device NC; Oxygen Saturation ABG 94.2; PO2 ABG 74.1 mmHg (80.0-100.0); Potassium Level - ABG 5.5 mmol/L (3.5-5.0); Total Hemoglobin 17.7 g/dL (12-16)
[2019-06-20 12:44] LABS: Blood Urea Nitrogen 19 mg/dL (8-23); Calcium 10.2 mg/dL (8.5-10.5); Carbon Dioxide 30 mmol/L (22-29); Chloride 95 mmol/L (98-107); Glucose 404 mg/dL (65-115); Osmolality Calculated 293 mOsm/kg (285-295); Sodium 135 mmol/L (136-145)
[2019-06-20] MEDS: insulin glargine 100 units/1 mL 20 UNIT SUBCUT (12:47)
[2019-06-20] MEDS: insulin regular-human 100 units/1 mL 15 UNIT IVP (12:51)
[2019-06-20] MEDS: sodium bicarbonate 8.4% 1 mEq/mL 50mL Syr 100 MEQ IVP (12:54)
--- NOTE | 2019-06-20 15:13 | P.HP_ITS ---
Providers/Chief Complaint Admitting Physician: Pepito Oh MD Primary Care Provider: Guy Salazar DO Chief Complaint: fall, dizziness History of Present Illness Deyanira oGnsales is a 73 year old female that presented to the emergency department after an episode of dizziness and fall. She has been treated for dizziness over the last week to 10 days, with concern of labyrinthitis and has been getting meclizine. She has had no vomiting, headache. She has had no focal weakness. She received calcium gluconate, IV fluids, insulin and bicarb for her hyperkalemia. She reports her dizziness, is intermittent and has been going on for a week. It will last only seconds, and the entire room will spin. She has not had any fever, headache. Review of Systems General: Denies: 10 or more systems reviewed and unremarkable except in HPI and below Const: Denies: fever(s) or chills Eyes: Denies: change in vision ENMT: Denies: throat pain Card: Denies: chest pain Resp: Denies: dyspnea GI: Denies: abdominal pain : Reports: urinary urgency; Denies: flank pain Musc: Reports: back pain; Denies: neck pain Skin/Breast: Denies: rash Neuro: Reports: dizziness Psych: Reports: anxiety Endo: Denies: polyuria Casey/Lymph: Denies: easy bruising All/Imm: Denies: urticaria Medications/Allergies Home Medications Medication Instructions Recorded Confirmed Last Taken Type aspirin 325 mg PO DAILY 06/20/19 06/20/19 06/19/19 History citalopram 10 mg PO DAILY 06/20/19 06/20/19 06/19/19 History duloxetine 60 mg PO DAILY 06/20/19 06/20/19 06/19/19 History fluticasone propionate 1 inh INHALATION BID 06/20/19 06/20/19 Unknown History insulin glargine [Lantus U-100 80 unit SUBCUT QPM 06/20/19 06/20/19 06/19/19 History Insulin] insulin lispro [Humalog U-100 See Rx Instructions .ROUTE .COMPLEX 06/20/19 06/20/19 Unknown History Insulin] liraglutide [Victoza 2-Manjinder] 1.8 mg SUBCUT DAILY 06/20/19 06/20/19 06/19/19 History meclizine 25 mg PO Q6H PRN 06/20/19 06/20/19 Unknown History metformin 1,000 mg PO DAILY 06/20/19 06/20/19 Unknown History metoprolol tartrate See Rx Instructions .ROUTE .COMPLEX 06/20/19 06/20/19 06/19/19 History tramadol 50 mg PO TID PRN 06/20/19 06/20/19 06/19/19 History umeclidinium-vilanterol [Anoro 1 inh INHALATION BID 06/20/19 06/20/19 06/19/19 History Ellipta] zolpidem 5 mg PO BEDTIME 06/20/19 06/20/19 06/19/19 History Allergies Allergy/AdvReac Type Severity Reaction Status Date / Time acetaminophen [From Vicodin] Allergy ADR-Confusi Verified 06/20/19 08:24 on cephalexin Allergy ALGY-Hives Verified 06/20/19 08:24 fluticasone Allergy Unknown Verified 06/20/19 08:24 [From Advair Diskus] hydrocodone [From Vicodin] Allergy ADR-Confusi Verified 06/20/19 08:24 on nitrofurantoin Allergy ALGY-Hives Verified 06/20/19 08:24 [From Macrobid] salmeterol Allergy Unknown Verified 06/20/19 08:24 [From Advair Diskus] PFSH Acute PFSH: Medical History (Updated 06/20/19 @ 16:27 by Pepito Oh MD) COPD (chronic obstructive pulmonary disease) Chronically uses 2 L per nasal cannula Coronary artery disease Depression Diabetes mellitus type 2 in obese Nephrolithiasis Peripheral neuropathy Surgical History (Updated 06/20/19 @ 16:27 by Pepito Oh MD) History of ankle surgery History of appendectomy History of bladder surgery History of carpal tunnel surgery History of cataract surgery History of shoulder surgery Hx of CABG 2004 Family History (Updated 06/20/19 @ 16:27 by Pepito Oh MD) Other Dementia Social History (Updated 06/20/19 @ 16:28 by Pepito Oh MD) Smoking and tobacco status: current every day smoker Alcohol intake: never Substance/Drug Use: never Vitals/I&O/Wt Last Vital Signs Temp 97.7 F 06/20/19 08:16 Pulse 64 06/20/19 08:16 Resp 17 05/15/20 13:32 BP 112/70 06/20/19 08:16 Pulse Ox 96 06/20/19 13:32 Weight last 48 hrs Weight 68.039 kg Physical Exam Narrative: EXAM NARRATIVE: General exam is a white female, sleeping on occasion and then reporting she is in pain. HEENT: Pupils equally round. Oropharynx clear. Neck is supple, no thyromegaly Cardiovascular regular rate and rhythm without murmur Lungs clear without wheezing or crackles Abdomen is soft with positive bowel sounds. No organomegaly was deferred Extremities no cyanosis clubbing or edema, cap refill brisk Skin without rash Neuro: No obvious focal deficits. No saddle anesthesia. Good sensation to her lower extremities. Able to sense full bladder. Data : 06/20/19 09:34 06/20/19 12:05 Other data: Urinalysis essentially negative. LFTs normal. Cervical spine no fracture. DJD is noted. Chest x-ray shows COPD T11 compression fracture, L1 burst fracture, T12 transverse process and L1 transverse process fractures. Mild contact with the thecal sac left kidney small mass noted recommend repeat imaging Head CT no acute changes noted. Could not rule out a subacute infarct right frontal but patient without neurologic complaints EKG demonstrates sinus rhythm, normal axis, no acute changes A&P Assessment and plan (1) Hyperkalemia: Kayexalate. Insulin glucose, calcium gluconate, IV fluids given in the ER Status: Acute (2) Chronic respiratory failure: Watch narcotic dosing closely. Continue oxygen Status: Acute (3) Burst fracture of lumbar vertebra: ER has visited with neurosurgery and recommends back brace, follow-up in clinic Pain control PT consultation for mobility, OT consultation Could conceivably need nursing facility placement, lives alone OxyIR as needed in, morphine for breakthrough pain. Apparently allergic to Tylenol Status: Acute Qualifiers: Encounter type: initial encounter Fracture type: closed Qualified Code(s): S32.001A - Stable burst fracture of unspecified lumbar vertebra, initial encounter for closed fracture (4) Closed wedge compression fracture of T11 vertebra: See above Status: Acute Qualifiers: Encounter type: initial encounter Qualified Code(s): S22.080A - Wedge compression fracture of T11-T12 vertebra, initial encounter for closed fracture (5) Closed fracture of transverse process of lumbar vertebra: See above Status: Acute Qualifiers: Encounter type: initial encounter Qualified Code(s): S32.009A - Unspecified fracture of unspecified lumbar vertebra, initial encounter for closed fracture (6) Fracture of transverse process of thoracic vertebra: See above Status: Acute Qualifiers: Encounter type: initial encounter Fracture type: closed Qualified Code(s): S22.009A - Unspecified fracture of unspecified thoracic vertebra, initial encounter for closed fracture (7) Dizziness: Consistent with vertigo, likely labyrinthitis. Intermittent episodes lasting only seconds. May have been the cause for the fall. Was getting physical therapy for this prior to admission Status: Acute Additional A&P Information Type 2 diabetes, unknown control. Continue Lantus lower dose, sliding scale COPD, nebs as needed Anxiety SCDs for DVT prophylaxis secondary to acute fractures until reevaluation tomorrow Full code Attestations Medical Necessity Statement*: Will need greater than 2 midnight stay for treatment of hyperkalemia, fracture of lumbar vertebrae with severe pain requiring inpatient medical management. Coding Level of Care Code Acute Narcotics Investigator for Jr Pisanod Diagnoses Hyperkalemia E87.5 Chronic respiratory failure J96.10 Burst fracture of lumbar vertebra S32.001A Encounter type: initial encounter Fracture type: closed Closed wedge compression fracture of T11 vertebra S22.080A Encounter type: initial encounter Closed fracture of transverse process of lumbar vertebra S32.009A Encounter type: initial encounter Fracture of transverse process of thoracic vertebra S22.009A Encounter type: initial encounter Fracture type: closed Dizziness R42
[2019-06-20] MEDS: sodium polystyrene sulfonate 15 gm/60 mL Btl PO (15:44)
[2019-06-20] MEDS: morphine 4 mg/mL SDV 1 mL 2 MG IVP (15:55)
[2019-06-20] MEDS: metoprolol tartrate 50 mg Tablet 100 MG PO (16:45)
[2019-06-20 16:56] LABS: Glucose Point of Care 231 mg/dL (70-110)
[2019-06-20 18:11] LABS: Potassium 5.2 mmol/L (3.5-5.1)
--- NOTE | 2019-06-20 21:15 | PC.NURSE ---
DR LEMOS NOTIFIED THAT LATEST POTASSIUM IS 5.2, DR GAVE NO NEW ORDERS AT THIS TIME.
[2019-06-20 21:28] LABS: Glucose Point of Care 303 mg/dL (70-110)
[2019-06-20] MEDS: insulin glargine 100 units/1 mL 40 UNIT SUBCUT (21:31)
[2019-06-20] MEDS: oxyCODONE 5 mg IR Tab/Cap PO (21:32)
[2019-06-21] VITALS (25 sets, daily range): BP systolic 111–151; BP diastolic 61–87; PULSE 56–85; RESP 16–20; TEMP 36.4–37.1; O2SAT 88–95
[2019-06-21] MEDS: oxyCODONE 5 mg IR Tab/Cap PO ×4 (02:31→17:45)
[2019-06-21 05:07] LABS: Alanine Aminotransferase 18 U/L (0-33); Albumin Level 3.8 g/dL (3.5-5.2); Alkaline Phosphatase 78 IU/L (35-105); Anion Gap 15.5 (5-19); Aspartate Amino Transferase 16 U/L (0-32); Blood Urea Nitrogen 21 mg/dL (8-23); Calcium 9.8 mg/dL (8.5-10.5); Carbon Dioxide 30 mmol/L (22-29); Chloride 100 mmol/L (98-107); Globulin 3.3 g/dL (1.3-4.6); Glucose 187 mg/dL (65-115); Osmolality Calculated 294 mOsm/kg (285-295); Potassium 4.5 mmol/L (3.5-5.1); Sodium 141 mmol/L (136-145); Total Bilirubin 0.7 mg/dL (0.15-1.2); Total Protein 7.1 g/dL (6.6-8.7)
[2019-06-21 05:11] LABS: Basophils # 0.1 10^3/uL (0.0-0.1); Basophils % 0.5 %; Eosinophils # 0.2 10^3/uL (0.0-0.8); Eosinophils % 1.6 %; Hematocrit 49.9 % (37.0-47.0); Hemoglobin 15.9 g/dL (11.5-15.3); Lymphocytes % 16.2 %; Mean Corpuscular HGB Conc 31.9 g/dL (30.0-36.0); Mean Corpuscular Hemoglobin 29.6 pg (28.0-34.0); Mean Corpuscular Volume 92.9 fL (81-99); Mean Platelet Volume 9.1 fL (7.4-10.4); Monocytes # 0.8 10^3/uL (0.2-0.9); Monocytes % 6.7 %; Neutrophils # 9.1 10^3/uL (1.8-7.7); Neutrophils % 74.2 %; Nucleated Red Blood Cells % 0 %; Platelet Count 246 10^3/cmm (130-400); Red Blood Count 5.37 10^6/uL (4.1-5.3); Red Cell Distribution Width 14.4 % (12.1-15.1); White Blood Count 12.3 10^3/uL (4.0-10.0)
--- NOTE | 2019-06-21 06:07 | PC.NURSE ---
SHIFT SUMMARY PT HAS REMAINED ALERT AND ORIENTATED. PT HAS HAD ADEQUATE URINE OUTPUT. PT HAS BEEN TURNED A FEW TIMES TO HELP WITH COMFORT. NO BREAKDOWN NOTED. PT IV REMAINS PATENT. PT HAS RECEIVED PAIN MEDS OFTEN HAS AVAILABLE DUE TO PAIN AND MUSCLE SPASMS.
[2019-06-21 07:46] LABS: Glucose Point of Care 250 mg/dL (70-110)
[2019-06-21] MEDS: aspirin 325 mg Tablet PO (08:28)
[2019-06-21] MEDS: duloxetine 60 mg Capsule PO (08:28)
[2019-06-21] MEDS: sennosides-docusate Tablet 1 TAB PO ×2 (08:28→17:44)
[2019-06-21] MEDS: methocarbamol 500 mg Tablet PO ×2 (09:39→19:47)
--- NOTE | 2019-06-21 09:41 | PC.NURSE ---
severe pain with any type of movement physical therapy attempt order for muscle relaxant started
--- NOTE | 2019-06-21 11:50 | P.PN_ITS ---
Subjective Subjective: Interval history: Deyanira reports she is hurting quite a bit. She denies any difficulty breathing. No dizziness Medications: Reviewed: Yes Vitals/I&O/Wt Last Vital Signs Temp 98.3 F 06/21/19 10:00 Pulse 74 06/21/19 10:00 Resp 18 06/21/19 10:00 BP 124/61 06/21/19 10:00 Pulse Ox 92 06/21/19 10:00 06/20/19 06/21/19 06/21/19 22:59 06:59 14:59 Intake Total 420 / 420 120 / 540 300 / 300 Output Total 450 / 450 600 / 1050 Balance -30 / -30 -480 / -510 300 / 300 Weight last 48 hrs Weight 68.039 kg Physical Exam Narrative: EXAM NARRATIVE: General exam no apparent distress Cardiovascular regular rate and rhythm without murmur Lungs clear without wheezing or crackles Abdomen is soft with positive bowel sounds. No organomegaly Extremities no cyanosis clubbing or edema, cap refill brisk No sacral paresthesia. Good sensation to lower extremities. Data : 06/21/19 04:34 06/21/19 04:34 A&P Assessment and plan (1) Hyperkalemia: Kayexalate. Insulin glucose, calcium gluconate, IV fluids given in the ER Resolved Status: Acute (2) Chronic respiratory failure: Watch narcotic dosing closely. Continue oxygen Status: Acute (3) Burst fracture of lumbar vertebra: ER has visited with neurosurgery and recommends back brace, follow-up in clinic Pain control PT consultation for mobility, OT consultation Could conceivably need nursing facility placement, lives alone OxyIR as needed in, morphine for breakthrough pain. Apparently allergic to Tylenol Muscle relaxant as needed will be added Status: Acute Qualifiers: Encounter type: initial encounter Fracture type: closed Qualified Code(s): S32.001A - Stable burst fracture of unspecified lumbar vertebra, initial encounter for closed fracture (4) Closed wedge compression fracture of T11 vertebra: See above Status: Acute Qualifiers: Encounter type: initial encounter Qualified Code(s): S22.080A - Wedge compression fracture of T11-T12 vertebra, initial encounter for closed fracture (5) Closed fracture of transverse process of lumbar vertebra: See above Status: Acute Qualifiers: Encounter type: initial encounter Qualified Code(s): S32.009A - Unspecified fracture of unspecified lumbar vertebra, initial encounter for closed fracture (6) Fracture of transverse process of thoracic vertebra: See above Status: Acute Qualifiers: Encounter type: initial encounter Fracture type: closed Qualified Code(s): S22.009A - Unspecified fracture of unspecified thoracic vertebra, initial encounter for closed fracture (7) Dizziness: Consistent with vertigo, likely labyrinthitis. Intermittent episodes lasting only seconds. May have been the cause for the fall. Was getting physical therapy for this prior to admission Status: Acute Additional A&P Information Type 2 diabetes, unknown control. Continue Lantus lower dose, sliding scale COPD, nebs as needed. Continuous pulse ox as she will be receiving some narcotics on occasion Anxiety SCDs for DVT prophylaxis secondary to acute fractures until reevaluation tomorrow Full code Transfer out of ICU Reduce IV fluids Heparin subcu for DVT prophylaxis Attestations Medical Necessity Statement*: Needs continued hospitalization for increased mobility for training of safe transfers, continued adjustment of medication for pain control. May need assisted facility placement. Coding Level of Care Code Acute Zoology Professor for Jaileneg Aliyad Diagnoses Hyperkalemia E87.5 Chronic respiratory failure J96.10 Burst fracture of lumbar vertebra S32.001A Encounter type: initial encounter Fracture type: closed Closed wedge compression fracture of T11 vertebra S22.080A Encounter type: initial encounter Closed fracture of transverse process of lumbar vertebra S32.009A Encounter type: initial encounter Fracture of transverse process of thoracic vertebra S22.009A Encounter type: initial encounter Fracture type: closed Dizziness R42
--- NOTE | 2019-06-21 13:05 | PC.NURSE ---
transfer to floor
[2019-06-21] MEDS: heparin 5,000 unit/mL INJ 1 mL 5000 UNIT SUBCUT (13:09)
--- NOTE | 2019-06-21 14:29 | PC.RESP ---
Smoking Cessation and Pulmonary Rehab information to patient with a schedule of classes.
[2019-06-21 16:12] LABS: Glucose Point of Care 336 mg/dL (70-110)
[2019-06-21] MEDS: metoprolol tartrate 50 mg Tablet 100 MG PO (17:41)
[2019-06-21] MEDS: sodium chloride 0.9% 1,000 ML 50 ML IV (17:57)
[2019-06-21 21:02] LABS: Glucose Point of Care 267 mg/dL (70-110)
[2019-06-21 21:51] LABS: Glucose Point of Care 275 mg/dL (70-110)
[2019-06-21] MEDS: insulin glargine 100 units/1 mL 40 UNIT SUBCUT (21:56)
[2019-06-22] VITALS (10 sets, daily range): BP systolic 116–148; BP diastolic 72–82; PULSE 51–82; RESP 16–20; TEMP 36.3–36.9; O2SAT 90–98
[2019-06-22] MEDS: pantoprazole 40 mg SDV IVP ×3 (00:09→23:29)
[2019-06-22 00:35] LABS: Gastricult Occult Blood Positive (Negative); Gastricult Occult PH 1.5 PH (1.5-3.5)
[2019-06-22 05:01] LABS: Hematocrit 51.1 % (37.0-47.0)
[2019-06-22 05:23] LABS: Chloride 97 mmol/L (98-107); Potassium 4.6 mmol/L (3.5-5.1); Sodium 135 mmol/L (136-145)
[2019-06-22 05:50] LABS: Anion Gap 15.5 (5-19); Blood Urea Nitrogen 21 mg/dL (8-23); Calcium 9.8 mg/dL (8.5-10.5); Carbon Dioxide 29 mmol/L (22-29); Glucose 252 mg/dL (65-115); Osmolality Calculated 285 mOsm/kg (285-295)
[2019-06-22] MEDS: metoprolol tartrate 50 mg Tablet PO (06:02)
[2019-06-22] MEDS: oxyCODONE 5 mg IR Tab/Cap PO ×2 (06:05→21:28)
[2019-06-22 07:12] LABS: Glucose Point of Care 204 mg/dL (70-110)
[2019-06-22] MEDS: sodium chloride 0.9% 1,000 ML 100 ML IV ×2 (07:56→20:30)
[2019-06-22] MEDS: duloxetine 60 mg Capsule PO (09:14)
[2019-06-22] MEDS: sennosides-docusate Tablet 1 TAB PO ×2 (09:14→17:13)
[2019-06-22 10:17] LABS: Hematocrit 50.3 % (37.0-47.0); Hemoglobin 15.6 g/dL (11.5-15.3)
--- NOTE | 2019-06-22 10:42 | P.PN_ITS ---
Subjective Subjective: Interval history: Deyanira had an episode of coffee-ground emesis yesterday. She reports she feels okay this morning. Not nauseated. Reports her last EGD was perhaps several months ago at [facility]. She denies any significant findings at that time. She is still having some pain. She does not want to go to a nursing facility. Medications: Reviewed: Yes Vitals/I&O/Wt Last Vital Signs Temp 98.3 F 06/22/19 07:27 Pulse 82 06/22/19 10:12 Resp 16 06/22/19 10:12 BP 120/76 06/22/19 07:27 Pulse Ox 95 06/22/19 10:12 06/21/19 06/22/19 06/22/19 22:59 06:59 14:59 Intake Total 300 / 822 307.5 / 1129.5 692.5 / 692.5 Output Total 850 / 850 410 / 1260 Balance -550 / -28 -102.5 / -130.5 692.5 / 692.5 Weight last 48 hrs Weight 72.439 kg Physical Exam Narrative: EXAM NARRATIVE: General exam no apparent distress Cardiovascular regular rate and rhythm without murmur Lungs clear without wheezing or crackles Abdomen is soft with positive bowel sounds. No organomegaly Extremities no cyanosis clubbing or edema, cap refill brisk No sacral paresthesia. Good sensation to lower extremities. Data : 06/22/19 10:01 06/22/19 04:20 A&P Assessment and plan (1) Hyperkalemia: Kayexalate. Insulin glucose, calcium gluconate, IV fluids given in the ER Resolved Status: Acute (2) Chronic respiratory failure: Watch narcotic dosing closely. Continue oxygen Status: Acute (3) Burst fracture of lumbar vertebra: ER has visited with neurosurgery and recommends back brace, follow-up in clinic Pain control PT consultation for mobility, OT consultation Could conceivably need nursing facility placement, lives alone Does not believe she is stable enough to go home currently with pain and balance. Physical therapy continues to work with the patient. Discharge planning is visiting regarding nursing facility placement OxyIR as needed in, muscle relaxant as needed. Apparently allergic to Tylenol Status: Acute Qualifiers: Encounter type: initial encounter Fracture type: closed Qualified Co de(s): S32.001A - Stable burst fracture of unspecified lumbar vertebra, initial encounter for closed fracture (4) Closed wedge compression fracture of T11 vertebra: See above Status: Acute Qualifiers: Encounter type: initial encounter Qualified Code(s): S22.080A - Wedge compression fracture of T11-T12 vertebra, initial encounter for closed fracture (5) Closed fracture of transverse process of lumbar vertebra: See above Status: Acute Qualifiers: Encounter type: initial encounter Qualified Code(s): S32.009A - Unspecified fracture of unspecified lumbar vertebra, initial encounter for clos ed fracture (6) Fracture of transverse process of thoracic vertebra: See above Status: Acute Qualifiers: Encounter type: initial encounter Fracture type: closed Qualified Code(s): S22.009A - Unspecified fracture of unspecified thoracic vertebra, initial encounter for closed fracture (7) Dizziness: Consistent with vertigo, likely labyrinthitis. Intermittent episodes lasting only seconds. May have been the cause for the fall. Was getting ph ysical therapy for this prior to admission No complaints since admission Status: Acute Additional A&P Information Episode of coffee-ground emesis. Request recent EGD results. Continue Protonix IV. Check H. pylori serology as patient indicates she may not have had biopsy done at prior EGD. We will do this on blood in lab. If no further episodes consider initiation of clear liquids later this afternoon. Hemoglobin has remained stable. type 2 diabetes, unknown control. Continue Lantus lower dose, sliding scale COPD, nebs as needed. Continuous pulse ox as she will be receiving some narcotics on occasion Anxiety SCDs for DVT prophylaxis. Heparin discontinued secondary to coffee-ground emesis Full code Attestations Medical Necessity Statement*: Needs continued hospitalization for close monitoring status post burst fracture, transverse process fracture as well as coffee-ground emesis occurring last night Coding Level of Care Code Acute Vibratory Pile Driver for Chg Fwd Diagnoses Hyperkalemia E87.5 Chronic respiratory failure J96.10 Burst fracture of lumbar vertebra S32.001A Encounter type: initial encounter Fracture type: closed Closed wedge compression fracture of T11 vertebra S22.080A Encounter type: initial encounter Closed fracture of transverse process of lumbar vertebra S32.009A Encounter type: initial encounter Fracture of transverse process of thoracic vertebra S22.009A Encounter type: initial encounter Fracture type: closed Dizziness R42
[2019-06-22 10:57] LABS: Add On to Lab Order(s) Added
[2019-06-22 10:57] LABS: Glucose Point of Care 141 mg/dL (70-110)
[2019-06-22 11:19] LABS: H. Pylori IgG Antibody Negative (Negative)
--- NOTE | 2019-06-22 15:13 | PC.NURSE ---
Double Cut Off Saw Operator D/C villa catheter tip was attached pt tolerated well.
[2019-06-22 16:19] LABS: Hematocrit 48.7 % (37.0-47.0); Hemoglobin 15.2 g/dL (11.5-15.3)
[2019-06-22 16:27] LABS: Glucose Point of Care 218 mg/dL (70-110)
[2019-06-22] MEDS: metoprolol tartrate 50 mg Tablet 100 MG PO (17:14)
[2019-06-22 20:27] LABS: Glucose Point of Care 179 mg/dL (70-110)
[2019-06-22] MEDS: insulin glargine 100 units/1 mL 40 UNIT SUBCUT (21:30)
[2019-06-22 22:04] LABS: Hematocrit 47.4 % (37.0-47.0); Hemoglobin 14.7 g/dL (11.5-15.3)
[2019-06-23] VITALS (9 sets, daily range): BP systolic 114–137; BP diastolic 63–79; PULSE 52–63; RESP 15–18; TEMP 36.4–36.9; O2SAT 93–97
[2019-06-23 05:36] LABS: Basophils % 0.4 %; Eosinophils # 0.3 10^3/uL (0.0-0.8); Eosinophils % 3.3 %; Hematocrit 46.7 % (37.0-47.0); Hemoglobin 14.6 g/dL (11.5-15.3); Lymphocytes % 21.6 %; Mean Corpuscular HGB Conc 31.3 g/dL (30.0-36.0); Mean Corpuscular Hemoglobin 29.7 pg (28.0-34.0); Mean Corpuscular Volume 95.1 fL (81-99); Mean Platelet Volume 9.1 fL (7.4-10.4); Monocytes # 0.7 10^3/uL (0.2-0.9); Monocytes % 7.9 %; Neutrophils # 6.1 10^3/uL (1.8-7.7); Neutrophils % 66.4 %; Nucleated Red Blood Cells % 0 %; Platelet Count 163 10^3/cmm (130-400); Red Blood Count 4.91 10^6/uL (4.1-5.3); Red Cell Distribution Width 13.9 % (12.1-15.1); White Blood Count 9.1 10^3/uL (4.0-10.0)
[2019-06-23] MEDS: metoprolol tartrate 50 mg Tablet PO (05:42)
[2019-06-23 05:56] LABS: Anion Gap 14.2 (5-19); Blood Urea Nitrogen 14 mg/dL (8-23); Calcium 9.6 mg/dL (8.5-10.5); Carbon Dioxide 28 mmol/L (22-29); Chloride 100 mmol/L (98-107); Glucose 128 mg/dL (65-115); Osmolality Calculated 284 mOsm/kg (285-295); Potassium 4.2 mmol/L (3.5-5.1); Sodium 138 mmol/L (136-145)
[2019-06-23 06:38] LABS: Glucose Point of Care 123 mg/dL (70-110)
[2019-06-23] MEDS: sodium chloride 0.9% 1,000 ML 100 ML IV (06:38)
[2019-06-23] MEDS: sennosides-docusate Tablet 1 TAB PO ×2 (08:57→18:00)
[2019-06-23] MEDS: duloxetine 60 mg Capsule PO (08:57)
--- NOTE | 2019-06-23 10:56 | DCPLANNER ---
Pg 2 of IM updated and reviewed with pt. No questions, copy provided.
[2019-06-23 11:10] LABS: Glucose Point of Care 113 mg/dL (70-110)
[2019-06-23] MEDS: pantoprazole 40 mg SDV IVP (11:43)
--- NOTE | 2019-06-23 12:33 | PM.PN ---
Subjective Subjective: Interval history: She states she is still significantly sore. States she is continent of urine and bowel. Is not sure when her last bowel movement was. She tried working with physical therapy although today. Vitals/I&O/Wt Last Vital Signs Temp 98.1 F 06/23/19 11:29 Pulse 52 L 06/23/19 11:29 Resp 15 06/23/19 11:29 BP 126/64 06/23/19 11:29 Pulse Ox 97 06/23/19 11:29 06/22/19 06/23/19 06/23/19 22:59 06:59 14:59 Intake Total 1360 / 2532.5 1200 / 3732.5 Output Total 550 / 1300 400 / 1700 400 / 400 Balance 810 / 1232.5 800 / 2032.5 -400 / -400 Weight last 48 hrs Weight 72.439 kg Physical Exam Const: COMMON NORMALS: no acute distress and patient oriented x3 HENMT: COMMON NORMALS: oropharynx normal Neck/C-Spine: COMMON NORMALS: no JVD Resp: COMMON NORMALS: normal respiratory effort and clear to auscultation bilaterally AUSCULTATION: clear to auscultation bilaterally Cardio: COMMON NORMALS: no JVD, regular rhythm, S1 normal heart sound present, S2 normal heart sound present and No murmurs present (Cardio) RHYTHM: regular rhythm HEART SOUNDS: S1 normal heart sound present and S2 normal heart sound present GI: COMMON NORMALS: Normal to inspection, nondistended, normoactive bowel sounds present, Soft to palpation and non-tender PALPATION: Yes Soft to palpation Back/Pelvis: OTHER: TLSO brace Extremity: COMMON NORMALS: no joint enlargement and no pedal edema Neuro: COMMON NORMALS: patient oriented x3 and moves all extremities Skin: COMMON NORMALS: no rashes or lesions noted GENERAL SKIN EXAM: no rashes or lesions noted Data : 06/23/19 05:30 06/23/19 05:30 A&P Assessment and plan (1) Burst fracture of lumbar vertebra: TLSO brace. PT/OT. Pain management. Patient was only able to stand for couple of seconds with PT today. She had walked with walker and assistance about 20 feet. Overall she does live independently, and needs to be more functional prior to return home. Discussed with her given slow improvement, compression fracture she would benefit from rehabilitation at SNF prior to return home, and she is agreeable. Discharge planning will set up the arrangements. Discussed with her if she is not improving within 1-2 weeks, consideration may be needed for additional assessment, possibly vertebral augmentation. On opioids. We will add bowel regimen. Status: Acute Qualifiers: Encounter type: initial encounter Fracture type: closed Qualified Code(s): S32.001A - Stable burst fracture of unspecified lumbar vertebra, initial encounter for closed fracture (2) Closed wedge compression fracture of T11 vertebra: As above Status: Acute Qualifiers: Encounter type: initial encounter Qualified Code(s): S22.080A - Wedge compression fracture of T11-T12 vertebra, initial encounter for closed fracture (3) Closed fracture of transverse process of lumbar vertebra: As above Status: Acute Qualifiers: Encounter type: initial encounter Qualified Code(s): S32.009A - Unspecified fracture of unspecified lumbar vertebra, initial encounter for closed fracture (4) Fracture of transverse process of thoracic vertebra: As above Status: Acute Qualifiers: Encounter type: initial encounter Fracture type: closed Qualified Code(s): S22.009A - Unspecified fracture of unspecified thoracic vertebra, initial encounter for closed fracture (5) Hyperkalemia: Resolved. Received Kayexalate. Insulin glucose, calcium gluconate, IV fluids given in the ER Status: Acute (6) Chronic respiratory failure: Watch narcotic dosing closely. Continue oxygen monitoring. Status: Acute (7) Dizziness: Consistent with vertigo, likely labyrinthitis. Intermittent episodes lasting only seconds. May have been the cause for the fall. Was getting physical therapy for this prior to admission No complaints since admission Status: Acute Additional A&P Information Episode of coffee-ground emesis. Resolved. Recent EGD results were requested from [place]. Hemoglobin remained stable. Will change to oral Protonix. H. pylori serology negative. H pylori antigen stool. CLD. Type 2 diabetes, unknown control. Continue Lantus lower dose, sliding scale COPD, nebs as needed. O2 monitoring. Emphysema on CXR. Chronically on 2L. Anxiety SCDs for DVT prophylaxis. Heparin was discontinued secondary to coffee-ground emesis Full code Attestations Medical Necessity Statement*: Continue admission for assessment management of functional debility due to lumbar vertebral fracture, assessment of management of possible GI bleeding. Coding Level of Care Code Acute Oxyacetylene Torch Operator for Chg Fwd Diagnoses Burst fracture of lumbar vertebra S32.001A Encounter type: initial encounter Fracture type: closed Closed wedge compression fracture of T11 vertebra S22.080A Encounter type: initial encounter Closed fracture of transverse process of lumbar vertebra S32.009A Encounter type: initial encounter Fracture of transverse process of thoracic vertebra S22.009A Encounter type: initial encounter Fracture type: closed Hyperkalemia E87.5 Chronic respiratory failure J96.10 Dizziness R42
[2019-06-23 17:15] LABS: Glucose Point of Care 133 mg/dL (70-110)
[2019-06-23] MEDS: polyethylene glycol 3350 Pkt 17 gm PO (18:00)
[2019-06-23] MEDS: pantoprazole DR 40 mg Tablet PO (18:01)
[2019-06-23] MEDS: metoprolol tartrate 50 mg Tablet 100 MG PO (18:01)
[2019-06-23 21:11] LABS: Glucose Point of Care 140 mg/dL (70-110)
[2019-06-23] MEDS: insulin glargine 100 units/1 mL 40 UNIT SUBCUT (21:53)
[2019-06-23] MEDS: oxyCODONE 5 mg IR Tab/Cap PO (21:53)
[2019-06-24] VITALS (10 sets, daily range): BP systolic 115–147; BP diastolic 70–79; PULSE 46–64; RESP 16–18; TEMP 36.1–36.8; O2SAT 95–98
[2019-06-24 02:26] LABS: Glucose Point of Care 95 mg/dL (70-110)
[2019-06-24] MEDS: oxyCODONE 5 mg IR Tab/Cap PO ×2 (03:57→20:52)
[2019-06-24] MEDS: metoprolol tartrate 50 mg Tablet PO (05:50)
[2019-06-24 06:30] LABS: Glucose Point of Care 99 mg/dL (70-110)
[2019-06-24] MEDS: sodium chloride 0.9% 1,000 ML 100 ML IV (08:46)
[2019-06-24] MEDS: pantoprazole DR 40 mg Tablet PO ×2 (08:47→18:24)
[2019-06-24] MEDS: duloxetine 60 mg Capsule PO (08:47)
[2019-06-24] MEDS: sennosides-docusate Tablet 1 TAB PO ×2 (08:47→18:23)
[2019-06-24 12:06] LABS: Glucose Point of Care 144 mg/dL (70-110)
[2019-06-24 17:03] LABS: Glucose Point of Care 171 mg/dL (70-110)
[2019-06-24] MEDS: metoprolol tartrate 50 mg Tablet 100 MG PO (18:24)
--- NOTE | 2019-06-24 19:23 | PM.PN ---
Subjective Subjective: Interval history: Request to advance her diet. Requests to adjust TLSO brace as it is uncomfortable to sleep in. Asks when she may transfer to SNF to begin her rehabilitation. Her symptoms overall are little bit better. She is tolerating sitting up for lunch. Vitals/I&O/Wt Last Vital Signs Temp 97.8 F 06/24/19 15:40 Pulse 54 L 06/24/19 15:40 Resp 18 06/24/19 15:40 BP 115/71 06/24/19 15:40 Pulse Ox 96 06/24/19 15:40 06/24/19 06/24/19 06/24/19 06:59 14:59 22:59 Intake Total 300 / 300 480 / 780 Output Total 1200 / 2150 400 / 400 Balance -1200 / -670 -100 / -100 480 / 380 Physical Exam Const: COMMON NORMALS: no acute distress and patient oriented x3 OTHER: Sitting up HENMT: COMMON NORMALS: oropharynx normal Neck/C-Spine: COMMON NORMALS: no JVD Resp: COMMON NORMALS: normal respiratory effort and clear to auscultation bilaterally AUSCULTATION: clear to auscultation bilaterally Cardio: COMMON NORMALS: no JVD, regular rhythm, S1 normal heart sound present, S2 normal heart sound present and No murmurs present (Cardio) RHYTHM: regular rhythm HEART SOUNDS: S1 normal heart sound present and S2 normal heart sound present GI: COMMON NORMALS: Normal to inspection, nondistended, normoactive bowel sounds present, Soft to palpation and non-tender PALPATION: Yes Soft to palpation Back/Pelvis: OTHER: TLSO brace Extremity: COMMON NORMALS: no joint enlargement and no pedal edema Neuro: COMMON NORMALS: patient oriented x3 and moves all extremities Skin: COMMON NORMALS: no rashes or lesions noted GENERAL SKIN EXAM: no rashes or lesions noted Data : 06/23/19 05:30 06/23/19 05:30 A&P Assessment and plan (1) Burst fracture of lumbar vertebra: Continue symptomatic management, attempts at mobilization as tolerating. Brace may need some adjustment. Pending arrangements for placement to SNF given protracted symptoms. If she is not improving within 1-2 weeks, consideration may be needed for additional assessment, possibly vertebral augmentation. On opioids. Bowel regimen. Status: Acute Qualifiers: Encounter type: initial encounter Fracture type: closed Qualified Code(s): S32.001A - Stable burst fracture of unspecified lumbar vertebra, initial encounter for closed fracture (2) Closed wedge compression fracture of T11 vertebra: As above Status: Acute Qualifiers: Encounter type: initial encounter Qualified Code(s): S22.080A - Wedge compression fracture of T11-T12 vertebra, initial encounter for closed fracture (3) Closed fracture of transverse process of lumbar vertebra: As above Status: Acute Qualifiers: Encounter type: initial encounter Qualified Code(s): S32.009A - Unspecified fracture of unspecified lumbar vertebra, initial encounter for closed fracture (4) Fracture of transverse process of thoracic vertebra: As above Status: Acute Qualifiers: Encounter type: initial encounter Fracture type: closed Qualified Code(s): S22.009A - Unspecified fracture of unspecified thoracic vertebra, initial encounter for closed fracture (5) Hyperkalemia: Resolved. Received Kayexalate. Insulin glucose, calcium gluconate, IV fluids given in the ER Status: Acute (6) Chronic respiratory failure: Watch narcotic dosing closely. Continue oxygen monitoring. Status: Acute (7) Dizziness: Consistent with vertigo, likely labyrinthitis. Intermittent episodes lasting only seconds. May have been the cause for the fall. Was getting physical therapy for this prior to admission No complaints since admission Status: Acute Additional A&P Information Episode of coffee-ground emesis. Resolved. There is been no decline in hemoglobin. She wants to advance diet. Recent EGD results were requested from [place]. Hemoglobin remained stable. Oral Protonix. H. pylori serology negative. H pylori antigen stool requested. CLD. Type 2 diabetes, unknown control. Continue Lantus lower dose, sliding scale COPD, nebs as needed. O2 monitoring. Emphysema on CXR. Chronically on 2L. Anxiety SCDs for DVT prophylaxis. Heparin was discontinued secondary to coffee-ground emesis Full code Attestations Medical Necessity Statement*: Continue admission for cyst management will discharge planning due to persistent symptoms following vertebral fracture. Coding Level of Care Code Acute Cured Meat Packing Supervisor for Chg Fwd Diagnoses Burst fracture of lumbar vertebra S32.001A Encounter type: initial encounter Fracture type: closed Closed wedge compression fracture of T11 vertebra S22.080A Encounter type: initial encounter Closed fracture of transverse process of lumbar vertebra S32.009A Encounter type: initial encounter Fracture of transverse process of thoracic vertebra S22.009A Encounter type: initial encounter Fracture type: closed Hyperkalemia E87.5 Chronic respiratory failure J96.10 Dizziness R42
[2019-06-24 20:48] LABS: Glucose Point of Care 231 mg/dL (70-110)
[2019-06-24] MEDS: insulin glargine 100 units/1 mL 40 UNIT SUBCUT (20:51)
[2019-06-25] VITALS (9 sets, daily range): BP systolic 96–135; BP diastolic 60–80; PULSE 46–96; RESP 16–20; TEMP 36.5–37; O2SAT 91–100
[2019-06-25 03:46] LABS: Basophils % 0.6 %; Eosinophils # 0.3 10^3/uL (0.0-0.8); Eosinophils % 4.1 %; Hematocrit 45.2 % (37.0-47.0); Hemoglobin 14.4 g/dL (11.5-15.3); Lymphocytes # 2.3 10^3/uL (0.8-4.8); Lymphocytes % 33.5 %; Mean Corpuscular HGB Conc 31.9 g/dL (30.0-36.0); Mean Corpuscular Hemoglobin 29.9 pg (28.0-34.0); Mean Corpuscular Volume 93.8 fL (81-99); Monocytes # 0.8 10^3/uL (0.2-0.9); Monocytes % 12.2 %; Neutrophils # 3.4 10^3/uL (1.8-7.7); Neutrophils % 48.9 %; Nucleated Red Blood Cells % 0 %; Platelet Count 218 10^3/cmm (130-400); Red Blood Count 4.82 10^6/uL (4.1-5.3); Red Cell Distribution Width 13.7 % (12.1-15.1); White Blood Count 6.9 10^3/uL (4.0-10.0)
[2019-06-25 05:13] LABS: Glucose Point of Care 89 mg/dL (70-110)
[2019-06-25] MEDS: metoprolol tartrate 50 mg Tablet PO (05:34)
[2019-06-25] MEDS: sennosides-docusate Tablet 1 TAB PO (09:24)
[2019-06-25] MEDS: polyethylene glycol 3350 Pkt 17 gm PO (09:24)
[2019-06-25] MEDS: duloxetine 60 mg Capsule PO (09:24)
[2019-06-25] MEDS: pantoprazole DR 40 mg Tablet PO (09:24)
[2019-06-25] MEDS: ipratropium-albuterol 3 mL Neb INHALATION (13:34)
--- NOTE | 2019-06-25 13:55 | PC.SOCIAL ---
IMM Updated Page 2 of IMM updated and given to patient. Initialed, dated, and timed and placed back in chart.
--- NOTE | 2019-06-25 15:21 | PM.DCS ---
Discharge Providers Date of Admission: 06/20/19 14:14 Date of Discharge: June 25, 2019 Attending Provider at Admission: Pepito Oh MD Attending Provider at Discharge: Dar Bond Primary Care Provider: Guy Salazar DO Diagnoses at Discharge Discharge Diagnosis (1) Burst fracture of lumbar vertebra: Status: Acute Problem details: Continue TLSO brace, PT, attempts at mobilization, symptomatic management. If not improving consider referral to neurosurgery or pain medicine for consideration of additional measures. Monitor for any concerning symptoms that may indicate acute cord compression. Qualifiers: Encounter type: initial encounter Fracture type: closed Qualified Code(s): S32.001A - Stable burst fracture of unspecified lumbar vertebra, initial encounter for closed fracture (2) Closed wedge compression fracture of T11 vertebra: Status: Acute Qualifiers: Encounter type: initial encounter Qualified Code(s): S22.080A - Wedge compression fracture of T11-T12 vertebra, initial encounter for closed fracture (3) Closed fracture of transverse process of lumbar vertebra: Status: Acute Qualifiers: Encounter type: initial encounter Qualified Code(s): S32.009A - Unspecified fracture of unspecified lumbar vertebra, initial encounter for closed fracture (4) Fracture of transverse process of thoracic vertebra: Status: Acute Qualifiers: Encounter type: initial encounter Fracture type: closed Qualified Code(s): S22.009A - Unspecified fracture of unspecified thoracic vertebra, initial encounter for closed fracture (5) Hyperkalemia: Status: Acute (6) Chronic respiratory failure: Status: Acute Problem details: Chronically on oxygen 2 L by nasal cannula. Here has been requiring somewhat more around 4 L. Unremarkable imaging. Possibly due to pain, restriction of TLSO brace. (7) Dizziness: Status: Acute Problem details: Thought initially perhaps labyrinthitis, however, no noted episodes here, however, with noted episodes of soft blood pressure, as well as bradycardia, and does appear that her metoprolol dose is too high. At this time will decrease to 50 mg twice a day. Please monitor symptoms. Strict fall precautions. Consider additional work-up in case symptoms return/persist. (8) Coffee ground emesis: Status: Acute Problem details: Episode of emesis with what was thought to be perhaps coffee-ground on appearance, gastric occult was noted positive, although this is nonspecific. Was started on PPI. Hemoglobin remained stable. Please follow-up hemoglobin. Discontinue PPI as appropriate depending on symptoms, blood count level. Consider whether upper endoscopy depending on clinical course. (9) Left kidney mass: Status: Acute Problem details: Incidentally noted 1.6 cm hyperdense mass in posterior mid left kidney. Not seen on prior studies. Please follow-up three-phase CT evaluation. (10) Stroke: Status: Acute Problem details: Incidentally noted possible subacute CVA on CT of the head and right frontal temporal region. Please obtain additional assessment for risk factors, and help her manage already known severe risk factors including smoking, diabetes, vascular disease. She is referred for MRI of the brain. She is restarted on aspirin as hemoglobin has been stable. Statin is added. Please consider additional evaluation by carotid Doppler as the last 1 was unremarkable but was done back in 2008, as well as referral to neurology. Reason for Visit Reason for Visit: Reason For Visit: fall, dizziness Hospital Course Hospital Course: Pleasant 73-year-old lady with history of COPD, on chronic oxygen to 2 L by nasal cannula, CAD, DM 2, complicated by peripheral neuropathy, nephrolithiasis, depression, current smoker, with admitted after presenting with a fall, dizziness episode, with persistent dizziness, for which he has been receiving meclizine, with concern for possible labyrinthitis prior to admission. With noted hyperkalemia on presentation for which received medical treatment with resolution. Additional investigation was undertaken due to pain in her back with any movement, with finding of mild L1 burst fracture with retropulsion by 4.8 mm and mild contact upon thecal sac and into the right subarticular recess, nondisplaced left transverse process fractures L1, L2 and L3. Of note also incidentally noted mildly hyperdense mass in the posterior mid left kidney, 1.6 cm in size, not present on prior studies. Her head CT on presentation was without acute intracranial hemorrhage or edema, moderate chronic microvascular changes mild progression of ischemic changes as well as noted subacute infarct right frontal temporal region could not be excluded. She is normally on aspirin, and statin is added, however, during his hospitalization had an episode of vomiting with what appeared to be coffee-ground contents, and so antiplatelets and DVT prophylaxis anticoagulation were discontinued. She was started on Protonix, and hemoglobin was monitored, but remained stable, without any further episodes. There was positive Gastroccult, although this is not very specific and could be related to vomiting itself, and patient herself thought that it was related to something she had eaten. For now she will continue on PPI, given stable hemoglobin she will be resumed on aspirin, please follow hemoglobin level and consider additional investigations as necessary based on clinical condition. She has had a an EGD not too long ago. H. pylori serology was negative during this admission. Stool antigen could not be obtained. Given prior history of CVA, in addition to antiplatelet medication, statin, please obtain additional investigations for risk factors apart the ones that are already known, including diabetes and current smoking. Consider referral to neurology. Please continue to encourage smoking cessation. With regards to diabetes Lantus dose for now is decreased to 40 units as she has done well with this dose while in the hospital. Continue to monitor and adjust as necessary. Her symptoms while in the hospital were very slow to improve, and she had significant limitation in mobility due to pain. She has not had any bowel incontinence, no urinary incontinence noted in the hospital, although does report some chronic urinary incontinence for years on and off. She has had no loss of sensation, saddle anesthesia, or other symptoms of acute cord compression. Please monitor for the symptoms. Due to slow improvement, and because she lives alone, she will benefit from additional rehabilitation, and this was accepted for additional care at SNF. Please follow-up her progress, and if not improving soon, consider additional referral including neurosurgery, pain medicine. Physical Exam Const: COMMON NORMALS: no acute distress and patient oriented x3 OTHER: Laying in bed. HENMT: COMMON NORMALS: oropharynx normal Neck/C-Spine: COMMON NORMALS: no JVD Resp: COMMON NORMALS: normal respiratory effort and clear to auscultation bilaterally AUSCULTATION: clear to auscultation bilaterally Cardio: COMMON NORMALS: no JVD, regular rhythm, S1 normal heart sound present, S2 normal heart sound present and No murmurs present (Cardio) RHYTHM: regular rhythm HEART SOUNDS: S1 normal heart sound present and S2 normal heart sound present GI: COMMON NORMALS: Normal to inspection, nondistended, normoactive bowel sounds present, Soft to palpation and non-tender PALPATION: Yes Soft to palpation Back/Pelvis: OTHER: TLSO brace Extremity: COMMON NORMALS: no joint enlargement and no pedal edema Neuro: COMMON NORMALS: patient oriented x3 and moves all extremities Skin: COMMON NORMALS: no rashes or lesions noted GENERAL SKIN EXAM: no rashes or lesions noted Discharge Data Data Completed and Pending: Completed Studies During Hospitalization Category Date Time Status CT cervical spin wo con* [id number] Urge nt Cat Scan 06/20/19 10:[address] head wo con* 7 [id number] Urgent Cat Scan 06/20/19 08:[address] lumbar spine w o con* [id number] Urgen t Cat Scan 06/20/19 08:[address] thoracic spin wo con* [id number] Urge nt Cat Scan 06/20/19 08:30 Completed XR chest 1V glen ble [id number] Urgent Exams 06/20/19 08:31 Completed Pending at discharge Category Date Time Status Complete Blood Co unt w/Auto AM LABS Lab 06/26/19 04:00 Ordered Complete Blood Co unt w/Auto AM LABS Lab 06/27/19 04:00 Ordered Helicobacter Pylo ri AG Stool Routin e Lab 06/23/19 12:42 Uncollected Labs from last 24 hours 06/25/19 06/25/19 06/24/19 05:08 03:10 20:45 WBC 6.9 RBC 4.82 Hgb 14.4 Hct 45.2 MCV 93.8 MCH 29.9 MCHC 31.9 RDW 13.7 Plt Count 218 MPV 9.0 Neut % (Auto) 48.9 Lymph % (Auto) 33.5 [place] % (Auto) 12.2 Eos % (Auto) 4.1 Baso % (Auto) 0.6 Neut # (Auto) 3.4 Lymph # (Auto) 2.3 [place] # (Auto) 0.8 Eos # (Auto) 0.3 Baso # (Auto) 0.0 Nucleated RBC % (a uto) 0 Nucleated RBCs # 0.0 POC Glucose 89 231 06/24/19 16:58 WBC RBC Hgb Hct MCV MCH MCHC RDW Plt Count MPV Neut % (Auto) Lymph % (Auto) [place] % (Auto) Eos % (Auto) Baso % (Auto) Neut # (Auto) Lymph # (Auto) [place] # (Auto) Eos # (Auto) Baso # (Auto) Nucleated RBC % (a uto) Nucleated RBCs # POC Glucose 171 Vitals: Last Vital Signs Temp 98.4 F 06/25/19 12:00 Pulse 57 L 06/25/19 13:34 Resp 16 05/20/20 13:34 BP 96/60 06/25/19 12:00 Pulse Ox 96 06/25/19 13:34 Discharge Plan Discharge Patient Disposition: Xfer SNF Condition: Stable Prescriptions: New oxycodone 5 mg Tablet 5 mg PO Q4H PRN (Reason: Moderate Pain) Qty: 10 RF: 0 methocarbamol 500 mg Tablet 500 mg PO QID PRN (Reason: Muscle Spasms) Qty: 14 RF: 0 pantoprazole 40 mg Tablet,Delayed Release (Dr/Ec) 40 mg PO BID Qty: 90 RF: 0 sennosides-docusate sodium 8.6-50 mg Tablet 1 tab PO BID Qty: 60 RF: 0 polyethylene glycol 3350 [Miralax] 17 gram Powder In Packet 17 g PO BID Qty: 60 RF: 0 aspirin [Aspirin Low Dose] 81 mg tablet,delayed release (DR/EC) 81 mg PO DAILY Qty: 30 RF: 0 atorvastatin 40 mg tablet 40 mg PO QPM Qty: 30 RF: 0 Continued fluticasone propionate 50 mcg/actuation Blister With Device 1 inh INHALATION BID RF: 0 citalopram 10 mg Tablet 10 mg PO DAILY RF: 0 tramadol 50 mg Tablet 50 mg PO TID PRN (Reason: Pain) RF: 0 meclizine 25 mg Tablet 25 mg PO Q6H PRN (Reason: Dizziness) RF: 0 metformin 1,000 mg Tablet 1,000 mg PO DAILY RF: 0 zolpidem 5 mg Tablet 5 mg PO BEDTIME RF: 0 Humalog U-100 Insulin 100 unit/mL Cartridge See Rx Instructions .ROUTE .COMPLEX RF: 0 Victoza 2-Manjinder 0.6 mg/0.1 mL (18 mg/3 mL) Pen Injector 1.8 mg SUBCUT DAILY RF: 0 Anoro Ellipta 62.5-25 mcg/actuation Blister With Device 1 inh INHALATION BID RF: 0 duloxetine 60 mg Capsule, Delayed Rel Sprinkle 60 mg PO DAILY RF: 0 Changed Lantus U-100 Insulin 100 unit/mL Solution 40 unit SUBCUT QPM Qty: 0 RF: 0 metoprolol tartrate 50 mg Tablet 50 mg PO BID Qty: 60 RF: 0 Discontinued aspirin 325 mg Tablet 325 mg PO DAILY RF: 0 Discharge Orders: Discharge Order (Routine); Ordered 06/25/19 Ordered By: Dar Bond Other Ambulatory Orders: CT abdomen w con* [id number] (Routine) Timeframe: 1 Week Facility: [facility] - Location: [facility] Ordered By: Dar Bond MR head wo/w con [id number] (Routine) Timeframe: 1 Week Facility: [facility] - Location: [facility] Ordered By: Dar Bond Referrals: [facility] [Outside] Guy Salazar DO [Primary Care Provider] - 4-7 days Discharge Diet: Cardiac and Diabetic Discharge Activity: Limit activity as instructed, As per PT/OT instructions and Oxygen as instructed Activity Restrictions/Additional Instructions: Maintain TLSO brace. Avoid sitting or standing for more than several hours at a time. Strict fall precautions. On follow up with your primary care doctor if there is no significant improvement in symptoms within about a week discuss referral to neurosurgery or pain medicine for consideration of vertebral augmentation. Please monitor for any symptoms that may indicate acute cord compression, including loss of sensation, acute weakness, loss of bowel control (chronic intermittent urinary incontinence is reported by the patient for many years), saddle anesthesia, or other symptoms. Continue oxygen by NC 4LPM, titrate to target saturation 88-92%. At this time metoprolol dose is decreased as 100mg at night appears too mush leading to soft blood pressure and slow heart rate in the 50s. Please monitor HR and BP 3 times daily. Adjust metoprolol dose as appropriate with your primary provider. Please discuss with your primary care doctor to follow-up hemoglobin level to rule out any ongoing upper gastrointestinal bleeding after the episode of vomiting questionable for possible coffee-ground's appearing contents. Discussed also regarding duration of pantoprazole therapy as well as whether additional evaluation by upper endoscopy would be of any benefit. Discussed with your primary care doctor regarding episodes of dizziness/vertigo, especially if there is return of symptoms, or any other associated symptoms including loss of hearing, high-pitched noise, any ear pain or discharge. Please discuss with your primary care doctor regarding follow-up of incidentally found unidentified 1.6 cm hyperdense posterior left kidney mass with nonemergent additional evaluation by three-phase CT scan. Please stop smoking. Please never smoke around oxygen due to severe fire hazard and risk of [place]. Please discuss with your primary care doctor with regards to findings that may indicate possible subacute stroke seen on initial noncontrast CT of the head. Additional evaluation by MRI of the brain is ordered to confirm whether infarct there was a stroke sometime in the past. Discharge Attestations Time Spent in Discharge Care*: greater than 30 min Quality Metrics Clinical Quality Measures During this hospital stay, did patient experience: None Coding Level of Care Code Acute [employer] for [employer] Diagnoses Burst fracture of lumbar vertebra S32.001A Encounter type: initial encounter Fracture type: closed Closed wedge compression fracture of T11 vertebra S22.080A Encounter type: initial encounter Closed fracture of transverse process of lumbar vertebra S32.009A Encounter type: initial encounter Fracture of transverse process of thoracic vertebra S22.009A Encounter type: initial encounter Fracture type: closed Hyperkalemia E87.5 Chronic respiratory failure J96.10 Dizziness R42 Coffee ground emesis K92.0 Left kidney mass N28.89 Stroke I63.9
[2019-06-25 21:07] LABS: Glucose Point of Care 129 mg/dL (70-110)
[2019-06-25 21:08] LABS: Glucose Point of Care 211 mg/dL (70-110)
== END 2019-06-25 18:41 | disposition home or self-care (01) | DRG 552 ==
LOC: ER 11:15 → ICU 14:55 → MEDSURG 06-21 12:57
PROVIDERS: Family Medicine; Internal Medicine; Physician Assistant; Admitting Provider Internal Medicine; Family Provider Internal Medicine; PCP Internal Medicine; Visit Provider Internal Medicine
DX: S22.080A Wedge compression fracture of T11-T12 vertebra, initial encounter for closed fracture (principal); S32.018A Other fracture of first lumbar vertebra, initial encounter for closed fracture; J96.10 Chronic respiratory failure, unspecified whether with hypoxia or hypercapnia; S22.088A Other fracture of T11-T12 vertebra, initial encounter for closed fracture; W18.30XA Fall on same level, unspecified, initial encounter; H83.09 Labyrinthitis, unspecified ear; E87.5 Hyperkalemia; J44.9 Chronic obstructive pulmonary disease, unspecified; Z99.81 Dependence on supplemental oxygen; I25.10 Atherosclerotic heart disease of native coronary artery without angina pectoris; F32.9 Major depressive disorder, single episode, unspecified; E11.42 Type 2 diabetes mellitus with diabetic polyneuropathy; Z87.442 Personal history of urinary calculi; F17.210 Nicotine dependence, cigarettes, uncomplicated; F41.9 Anxiety disorder, unspecified; N28.89 Other specified disorders of kidney and ureter; Z86.73 Personal history of transient ischemic attack (TIA), and cerebral infarction without residual deficits; Z79.891 Long term (current) use of opiate analgesic; Z79.4 Long term (current) use of insulin; G89.11 Acute pain due to trauma
CPT/HCPCS: 12345; 36415; 36416; 36600; 70450; 71045; 72125; 72128; 72131; 80048; 80051; 80053; 81001; 82009; 82271; 82810; 82962; 83735; 83986; 84132; 85014; 85018; 85025; 86677; 93005; 94640; 94762; 96372; 96375; 97110; 97116; 97162; 97165; 97530; 97535; 97760; 99282; C9113; J0610; J1644; J1815; J2270; J2405; J3010; J7030; J8597

== ENCOUNTER 2019-07-02 09:30 | Emergency (ER) | payer MEDICARE, MEDICAID, SELFPAY ==
[2019-07-02 09:30] VITALS: BP 116/75; PULSE 81; RESP 15; TEMP 36.9; O2SAT 92; BMI 26.5
--- NOTE | 2019-07-02 09:36 | W.ED.ABDPA2 ---
HPI - Abdominal Pain General: Chief Complaint: Abdominal Pain Stated Complaint: ABD Pain Time Seen by Provider: 07/02/19 09:31 Source: patient and EMS Mode of arrival: EMS Limitations: no limitations History of Present Illness: HPI narrative: Patient is a 73-year-old female who presents to ED today brought by EMS from her longterm facility for complaints of abdominal pain, nausea, vomiting, diarrhea. According to EMS patient has complained of abdominal pain over the past week while at the prison. She apparently was scheduled for a CT scan today however the prison forgot. Upon arrival patient does not complain of abdominal pain. She does tell me she has had vomiting and diarrhea over the past 4 days. She does not describe any hematemesis, hematochezia, or melanotic stools. She has not been running fevers. She is unaware of any other prison residents with similar symptoms. She tells me she had approximately 2 episodes of vomiting on Sunday and 2 episodes yesterday. She reports 10 diarrhea stools yesterday. Patient was recently hospitalized after I saw and evaluated her in the emergency department for dizziness/fall. Patient at the time was found to have multiple back fractures and at that time was too big of a fall risk to send home. According to hospitalist documentation patient did have one episode of hematemesis while in the hospital. She was placed on Protonix for this. Associated Symptoms: Reports diarrhea, nausea and vomiting; Denies bloating, change in stool character, chills, coffee ground emesis, GI cramping, dysuria, excessive flatus, fever(s), heartburn, hematochezia, hematemesis, melena and syncope Review of Systems Const: Denies: fever(s), chills, body aches, fatigue or malaise Eyes: Denies: change in vision or blurry vision ENMT: Denies: throat pain, enlarged tonsils or odynophagia Card: Denies: chest pain, palpitations, irregular heart rhythm, lightheadedness, syncope or dyspnea on exertion Resp: Denies: dyspnea, productive cough or pain on inspiration GI: Reports: nausea, vomiting and diarrhea; Denies: abdominal pain, hematemesis, coffee ground emesis, dysphagia, heartburn, early satiety, bloating, GI cramping, excessive flatus, pain on defecation, change in stool character, hematochezia, melena or white/light colored stool : Denies: flank pain, difficulty voiding, dysuria, urinary frequency, urinary urgency or urinary hesitancy Musc: Denies: neck pain, back pain (present since her last falls/multiple back fxs; pain ), extremity pain, extremity swelling or joint pain Skin/Breast: Denies: rash Neuro: Denies: headache(s), numbness in extremities, weakness in extremities or sensory changes PFSH ED PFSH: Medical History (Updated 07/02/19 @ 12:07 by DOROTEO Martinez) COPD (chronic obstructive pulmonary disease) Chronically uses 2 L per nasal cannula Coronary artery disease Depression Diabetes mellitus type 2 in obese Nephrolithiasis Peripheral neuropathy Surgical History (Updated 06/20/19 @ 16:27 by Pepito Oh MD) History of ankle surgery History of appendectomy History of bladder surgery History of carpal tunnel surgery History of cataract surgery History of shoulder surgery Hx of CABG 2004 Family History (Updated 06/20/19 @ 16:27 by Pepito Oh MD) Other Dementia Social History (Updated 06/20/19 @ 16:28 by Pepito Oh MD) Smoking and tobacco status: current every day smoker Alcohol intake: never Physical Exam Const: COMMON NORMALS: no acute distress, average body habitus, patient oriented x3, no limitations, healthy appearing, alert and well nourished GENERAL APPEARANCE: cooperative ORIENTATION/CONSCIOUSNESS: Yes awake, Yes oriented to person, Yes oriented to place, Yes oriented to time ([facility] ; states year is 1999) and Yes Other orientation findings ([facility]) OTHER: appears drowsy HENMT: COMMON NORMALS: normocephalic, atraumatic and hearing grossly normal bilaterally HEAD & SCALP: normal to inspection, normocephalic and atraumatic FACE & SINUS: normal facial exam Eye: COMMON NORMALS: Equal, round and reactive pupils present, EOMs intact bilaterally and conjunctivae normal CONJUNCTIVA: Yes conjunctivae normal PUPIL: Yes Equal, round and reactive pupils present Neck/C-Spine: COMMON NORMALS: full ROM, no lymphadenopathy and no meningeal signs Resp: COMMON NORMALS: normal respiratory effort and clear to auscultation bilaterally AUSCULTATION: clear to auscultation bilaterally Cardio: COMMON NORMALS: regular rate and regular rhythm RATE: regular rate RHYTHM: regular rhythm GI: COMMON NORMALS: Normal to inspection, nondistended, normoactive bowel sounds present, Soft to palpation, non-tender, No hepatosplenomegaly present and no masses PALPATION: Yes Soft to palpation and Yes No hepatosplenomegaly present Back/Pelvis: OTHER: in TLSO brace; this was not removed for exam as patient currently does not have any back complaints Extremity: COMMON NORMALS: normal to inspection, capillary refill normal, no clubbing, cyanosis or edema and no pedal edema Neuro: ROBERTO COMA SCALE: document GCS findings Roberto coma scale eye opening: Spontaneous Roberto coma scale verbal response: Orientated [place] coma scale motor response: Obey commands Roberto coma scale total score: 15 COMMON NORMALS: patient oriented x3, CN's II-XII intact bilaterally, moves all extremities, no focal motor deficits and no sensory deficits noted SENSORIUM/ORIENTATION: Yes alert, Yes oriented to person, Yes oriented to place and Yes oriented to time (knows month; states year is 1999) MENINGEAL SIGNS: Yes no meningeal signs Skin: COMMON NORMALS: no rashes or lesions noted GENERAL SKIN EXAM: no rashes or lesions noted Course Vital Signs: Vital signs: Vital Signs Temperature 98.4 F 07/02/19 09:30 Pulse Rate 83 07/02/19 09:39 Respiratory Rate 14 07/02/19 09:39 Blood Pressure 116/75 07/02/19 09:30 Pulse Oximetry 93 07/02/19 09:39 MDM - Abdominal Pain MDM Narrative: Medical decision making narrative: Patient has not had any episodes of vomiting or diarrhea throughout her stay. Patient's vitals are completely stable. Again after reviewing patient's hospitalization discharge paperwork she did have one episode of hematemesis while in the hospital. She was placed on Protonix and recommended that they monitor H/H. Patient's hemoglobin today is stable and actually higher than when she was discharged. During hospitalization they did see a incidental left kidney mass that recommended follow-up. The same mass was seen on her CT scan today. She does have fluid distention throughout her colon and stomach possibly related to gastroenteritis. She also has some inflammation to her duodenum as well. We will keep her on the Protonix and treat her with Cipro and Flagyl. She was also noted to have acute cystitis. The ciprofloxacin should cover for this as well. She had a small area of narrowing in her descending colon unknown whether this was an area of peristalsis versus a neoplasm. Upon her discharge from the hospital they did possibly recommend EGD. Based on the CT scan and the colon narrowing I will also recommend she obtain a colonoscopy. I will place information with case management to get her set up with Dr. Castro (this was set up for this ). Return to ED precautions given. Lab Data: Labs: Lab Results 07/02/19 07/02/19 07/02/19 Range/Units 09:52 09:52 11:18 WBC 6.3 (4.0-10.0) 10^3/ uL RBC 5.32 H (4.1-5.3) 10^6/u L Hgb 15.5 H (11.5-15.3) g/dL Hct 48.8 H (37.0-47.0) % MCV 91.7 (81-99) fL MCH 29.1 (28.0-34.0) pg MCHC 31.8 (30.0-36.0) g/dL RDW 13.5 (12.1-15.1) % Plt Count 307 (130-400) 10^3/c mm MPV 9.3 (7.4-10.4) fL Nucleated RBC % (a uto) 0 % Total Counted 100 (0-100) Segmented Neutroph ils 19 % Band Neutrophils 43.0 % Lymphocytes (Manua l) 19 % Monocytes (Manual) 9.0 % Absolute Monocytes 0.6 (0.1-0.6) 10^3/c mm Eosinophils (Manua l) 8 % Absolute Eosinophi ls 0.5 (0.0-0.7) 10^3/c mm Metamyelocytes 2.0 % Nucleated RBCs # 0.0 /100WBC Platelet Estimate Normal (Normal) Sodium 135 L (136-145) mmol/L Potassium 4.3 (3.5-5.1) mmol/L Chloride 98 (98-107) mmol/L Carbon Dioxide 24 (22-29) mmol/L Anion Gap 17.3 (5-19) BUN 38 H (8-23) mg/dL Creatinine 1.0 H (0.5-0.9) mg/dL Glucose 140 H (65-115) mg/dL Calculated Osmolal ity 280 L (285-295) mOsm/k g Calcium 9.3 (8.5-10.5) mg/dL Total Bilirubin 0.7 (0.15-1.2) mg/dL AST 10 (0-32) U/L ALT 9 (0-33) U/L Alkaline Phosphata se 102 (35-105) IU/L Total Protein 7.3 (6.6-8.7) g/dL Albumin 3.7 (3.5-5.2) g/dL Globulin 3.6 (1.3-4.6) g/dL Lipase 6 L (13-60) U/L Urine Color Yellow (Yellow) Urine Appearance Hazy A (CLEAR) Urine pH 5 (5-7) Ur Specific Gravit y 1.010 (1.005-1.030) Urine Protein 1+ H (Negative) Urine Glucose (UA) Norm (Normal) Urine Ketones Negative (Negative) Urine Blood 2+ H (Negative) Urine Nitrate Negative (Negative) Urine Bilirubin Neg (NEGATIVE) Urine Urobilinogen Norm (Negative) mg/dL Ur Leukocyte Yusra ase 1+ H (Negative) Urine RBC 0-4 H (0-2) /hpf Urine WBC 40-55 H (0-5) /hpf Ur Squamous Epith Cells 0-4 H (0-5) Amorphous Sediment 1+ Urine Bacteria 3+ H (NONE) Imaging Data ^: CT Abd/Pel: Radiologist's impression: [place] [address] CT Scan Report Signed Patient: Deyanira Gonsales Unit #: [id number] : 1945 Age/Sex: 73 / F ADM Date: 07/02/19 Loc: ER Room/Bed: Attending Dr: Ordering Provider/Ordering MD: Antonia Gerardo Date of Service: 07/02/19 Procedure(s): CT abdomen pelvis w con* [id number] Accession Number(s): [id number] Report Number: [id number] WS: [id number] CT ABDOMEN AND PELVIS WITH CONTRAST HISTORY: abdominal pain; N/V TECHNIQUE: Imaging performed of the abdomen and pelvis with IV contrast. Single phase imaging of the abdomen. Coronal and sagittal reformats are submitted. All CT scans at [facility] use at least one of these dose optimization techniques: automated exposure control; mA and/or kV adjustment per patient size (includes targeted exams where dose is matched to clinical indication); or iterative reconstruction. IV CONTRAST: Omnipaque 300; 95 mL IV. Oral contrast: No DLP: 677.96 mGy.cm COMPARISON: 07/01/2005. Lower thorax: Increasing airspace disease at the RIGHT lung base. Heart is normal size. Small hiatal hernia. Liver/biliary system: Surface of the liver is irregular in the liver is small. No bile duct dilatation. Portal vein is patent. Gallbladder: Very slightly hydropic gallbladder. There are stones in the floor the gallbladder. No adjacent inflammation or wall thickening. Similar finding was seen on the prior study from 2005. Pancreas: Marked atrophy of the pancreas. No duct dilatation. Spleen: Normal. Adrenal glands: Normal. Right kidney: Normal. Left kidney: Moderate atrophy of the LEFT kidney. Solid appearing exophytic mass from the upper pole measures 1.6 x 1.6 cm. Smaller 1.4 cm cyst in the mid kidney. Aorta: Extensive atherosclerosis with no aneurysm. Lymphadenopathy: None. Free fluid: None. GI tract: Mild increased amount of fluid throughout the GI tract. Increased food products in the stomach. There is mild hyperemia of the duodenal C-loop. No GI tract obstruction. There is a focal narrowing of the descending colon. Abdominal wall: Fat-containing umbilical hernia. Pelvis: Urinary bladder is not distended. Uterus is atrophic and midline. No free fluid or adenopathy. Bones: Again noted is a burst fracture of L1 and the acute compression fracture involving the superior endplate of T11. Transverse process fracture on the LEFT at T12 and L1 are again visualized but nondisplaced. CT/CT abdomen pelvis w con* [id number] IMPRESSION: 1. Mild fluid distention of the colon and stomach. May be due to gastroenteritis. 2. Mild hyperemia of the duodenum. Inflammation from an ulcer or duodenitis may appear similar. 3. Focal narrowing involving the descending colon. Area of peristalsis versus neoplasm. Recommend follow-up colonoscopy or repeat CT imaging in 2-3 months. 4. Distended gallbladder with stones. No evidence for acute cholecystitis. Similar findings were seen on the prior CT from 2005. Distended gallbladder may be due to a prolonged fasting state. 5. Cirrhosis. 6. Increasing atelectatic changes at the RIGHT lung base. 7. Suspicious for solid mass upper pole LEFT kidney measuring 1.6 x 1.6 cm. Recommend follow-up ultrasound. 8. Recently described vertebral body fractures are unchanged. Dictated By: Awa Jerez DO Signed By: Awa Jerez DO Signed Date/Time: 07/02/19 1126 DD/ 1116 Discharge Plan Discharge Patient Disposition: Home, Self-Care Clinical Impression: Left kidney mass, Gastroenteritis, Acute cystitis with hematuria Condition: Stable Prescriptions: New Zofran 4 mg tablet 4 mg PO Q6H PRN (Reason: nausea and vomiting) Qty: 14 RF: 0 Flagyl 500 mg tablet 500 mg PO BID 7 Days Qty: 14 RF: 0 Cipro 500 mg tablet 500 mg PO Q12H Qty: 14 RF: 0 No Action fluticasone propionate 50 mcg/actuation Blister With Device 1 inh INHALATION BID RF: 0 citalopram 10 mg Tablet 10 mg PO DAILY RF: 0 tramadol 50 mg Tablet 50 mg PO TID PRN (Reason: Pain) RF: 0 meclizine 25 mg Tablet 25 mg PO Q6H PRN (Reason: Dizziness) RF: 0 metformin 1,000 mg Tablet 1,000 mg PO DAILY RF: 0 zolpidem 5 mg Tablet 5 mg PO BEDTIME RF: 0 Humalog U-100 Insulin 100 unit/mL Cartridge See Rx Instructions .ROUTE .COMPLEX RF: 0 Victoza 2-Manjinder 0.6 mg/0.1 mL (18 mg/3 mL) Pen Injector 1.8 mg SUBCUT DAILY RF: 0 Anoro Ellipta 62.5-25 mcg/actuation Blister With Device 1 inh INHALATION BID RF: 0 duloxetine 60 mg Capsule, Delayed Rel Sprinkle 60 mg PO DAILY RF: 0 methocarbamol 500 mg Tablet 500 mg PO QID PRN (Reason: Muscle Spasms) Qty: 14 RF: 0 polyethylene glycol 3350 [Miralax] 17 gram Powder In Packet 17 g PO BID Qty: 60 RF: 0 sennosides-docusate sodium 8.6-50 mg Tablet 1 tab PO BID Qty: 60 RF: 0 pantoprazole 40 mg Tablet,Delayed Release (Dr/Ec) 40 mg PO BID Qty: 90 RF: 0 aspirin [Aspirin Low Dose] 81 mg tablet,delayed release (DR/EC) 81 mg PO DAILY Qty: 30 RF: 0 atorvastatin 40 mg tablet 40 mg PO QPM Qty: 30 RF: 0 oxycodone 5 mg Tablet 5 mg PO Q4H PRN (Reason: Moderate Pain) Qty: 10 RF: 0 Lantus U-100 Insulin 100 unit/mL Solution 40 unit SUBCUT QPM Qty: 0 RF: 0 metoprolol tartrate 50 mg Tablet 50 mg PO BID Qty: 60 RF: 0 Discharge Orders: Discharge Order (Routine); Ordered 07/02/19 Ordered By: Antonia Gerardo Referrals: Vega Castro MD [Physician] - 07/10/19 2:45 pm Guy Salazar DO [Primary Care Provider] - Activity Restrictions/Additional Instructions: As discussed we are putting you on antibiotics for possible intestinal infection. You are also noted to have a urinary tract infection. You have a mass on your left kidney that needs follow-up. This can be discussed with Dr. Salazar who can follow-up with an ultrasound. I have referred you to Dr. Castro for possible colonoscopy and EGD if indicated. Coding Level of Care Code ED Potter Or Ceramic Artist for Chg Fwd Exam Comprehensive
[2019-07-02 09:39] VITALS: PULSE 83; RESP 14; O2SAT 93
--- NOTE | 2019-07-02 09:49 | CT_ITS ---
WS: [id number] CT ABDOMEN AND PELVIS WITH CONTRAST HISTORY: abdominal pain; N/V TECHNIQUE: Imaging performed of the abdomen and pelvis with IV contrast. Single phase imaging of the abdomen. Coronal and sagittal reformats are submitted. All CT scans at [facility] use at least one of these dose optimization techniques: automated exposure control; mA and/or kV adjustment per patient size (includes targeted exams where dose is matched to clinical indication); or iterativ e reconstruction. IV CONTRAST: Omnipaque 300; 95 mL IV. Oral contrast: No DLP: 677.96 mGy.cm COMPARISON: 07/01/2005. Lower thorax: Increasing airspace disease at the RIGHT lung base. Heart is normal size. Small hiatal hernia. Liver/biliary system: Surface of the liver is irregular in the liver is small. No bile duct dilatatio n. Portal vein is patent. Gallbladder: Very slightly hydropic gallbladder. There are stones in the floor the gallbladder. No ad jacent inflammation or wall thickening. Similar finding was seen on the prior study from 2005. Pancreas: Marked atrophy of the pancreas. No duct dilatation. Spleen: Normal. Adrenal glands: Normal. Right kidney: Normal. Left kidney: Moderate atrophy of the LEFT kidney. Solid appearing exophytic mass from the upper pole measures 1.6 x 1.6 cm. Smaller 1.4 cm cyst in the mid kidney. Aorta: Extensive atherosclerosis with no aneurysm. Lymphadenopathy: None. Free fluid: None. GI tract: Mild increased amount of fluid throughout the GI tract. Increased food products in the stom ach. There is mild hyperemia of the duodenal C-loop. No GI tract obstruction. There is a focal narrow ing of the descending colon. Abdominal wall: Fat-containing umbilical hernia. Pelvis: Urinary bladder is not distended. Uterus is atrophic and midline. No free fluid or adenopathy . Bones: Again noted is a burst fracture of L1 and the acute compression fracture involving the superio r endplate of T11. Transverse process fracture on the LEFT at T12 and L1 are again visualized but non displaced. CT/CT abdomen pelvis w con* [id number] IMPRESSION: 1. Mild fluid distention of the colon and stomach. May be due to gastroenterit is. 2. Mild hyperemia of the duodenum. Inflammation from an ulcer or duodenitis ma y appear similar. 3. Focal narrowing involving the descending colon. Area of peristalsis versus neoplasm. Recommend follow-up colonoscopy or repeat CT imaging in 2-3 months. 4. Distended gallbladder with stones. No evidence for acute cholecystitis. Sim ilar findings were seen on the prior CT from 2005. Distended gallbladder may be due to a prolonged fasting state. 5. Cirrhosis. 6. Increasing atelectatic changes at the RIGHT lung base. 7. Suspicious for solid mass upper pole LEFT kidney measuring 1.6 x 1.6 cm. Re commend follow-up ultrasound. 8. Recently described vertebral body fractures are unchanged.
[2019-07-02 10:14] LABS: Alanine Aminotransferase 9 U/L (0-33); Albumin Level 3.7 g/dL (3.5-5.2); Alkaline Phosphatase 102 IU/L (35-105); Anion Gap 17.3 (5-19); Aspartate Amino Transferase 10 U/L (0-32); Blood Urea Nitrogen 38 mg/dL (8-23); Calcium 9.3 mg/dL (8.5-10.5); Carbon Dioxide 24 mmol/L (22-29); Chloride 98 mmol/L (98-107); Globulin 3.6 g/dL (1.3-4.6); Glucose 140 mg/dL (65-115); Lipase 6 U/L (13-60); Osmolality Calculated 280 mOsm/kg (285-295); Potassium 4.3 mmol/L (3.5-5.1); Sodium 135 mmol/L (136-145); Total Bilirubin 0.7 mg/dL (0.15-1.2); Total Protein 7.3 g/dL (6.6-8.7)
[2019-07-02] MEDS: iohexol 300 mg/mL 100 mL Btl IV (11:06)
[2019-07-02 11:16] LABS: Hematocrit 48.8 % (37.0-47.0); Hemoglobin 15.5 g/dL (11.5-15.3); Mean Corpuscular HGB Conc 31.8 g/dL (30.0-36.0); Mean Corpuscular Hemoglobin 29.1 pg (28.0-34.0); Mean Corpuscular Volume 91.7 fL (81-99); Mean Platelet Volume 9.3 fL (7.4-10.4); Nucleated Red Blood Cells % 0 %; Platelet Count 307 10^3/cmm (130-400); Red Blood Count 5.32 10^6/uL (4.1-5.3); Red Cell Distribution Width 13.5 % (12.1-15.1); White Blood Count 6.3 10^3/uL (4.0-10.0)
[2019-07-02 11:25] LABS: Slide Review Slide Review Perform
[2019-07-02 11:27] LABS: Absolute Eosinophils 0.5 10^3/cmm (0.0-0.7); Absolute Segmented Neutrophil 1.1 10/cmm (1.6-7.1); Band Neutrophils Absolute 2.7 10^3/cmm (0.0-1.2); Eosinophils 8 %; Lymphocytes 19 %; Monocytes Absolute 0.6 10^3/cmm (0.1-0.6); Platelet Estimate Normal (Normal); Segmented Neutrophils 19 %; Total Cells Counted 100 (0-100)
[2019-07-02] MEDS: sodium chloride 0.9% 1,000 ML 999 ML IV (11:27)
[2019-07-02 11:46] LABS: Protein Urine 1+ (Negative); Urine Appearance Hazy (CLEAR); Urine Color Yellow (Yellow); pH Urine 5 (5-7)
[2019-07-02 11:47] LABS: Add Urine Microscopic? YES; Bilirubin Urine Neg (NEGATIVE); Blood Urine 2+ (Negative); Glucose Urine UA Norm (Normal); Ketones Urine Negative (Negative); Leukocyte Esterase Urine 1+ (Negative); Nitrate Urine Negative (Negative); Urobilinogen Urine Norm (Negative)
[2019-07-02 11:59] LABS: Add Urine Culture? Yes; Amorphous Sediment Urine 1+; Bacteria Urine 3+; RBC Urine 0-4 /hpf (0-2); Squamous Epithelial Cell Urine 0-4 (0-5); WBC Urine 40-55 /hpf (0-5)
--- NOTE | 2019-07-02 12:27 | DCPLANNER ---
manager of warehouse was asked to schedule a follow up appointment for patient with Dr. Castro. manager of warehouse called the office of Dr. Castro, spoke with Connie, a follow up appointment was scheduled for , July 10, 2019 at 2:[address] Castro.
--- NOTE | 2019-07-02 14:55 | PC.NURSE ---
patient continues to have diarrhea
[2019-07-02 16:09] VITALS: BP 116/75; PULSE 86; RESP 18; O2SAT 96
--- NOTE | 2019-07-24 14:03 | DCPLANNER ---
Patient did attend appointment scheduled for 07.10.[address] Castro.
== END 2019-07-02 16:14 | disposition home or self-care (01) ==
PROVIDERS: Emergency Provider Physician Assistant; Family Provider Internal Medicine; PCP Internal Medicine
DX: N30.01 Acute cystitis with hematuria (principal); N28.89 Other specified disorders of kidney and ureter; K52.9 Noninfective gastroenteritis and colitis, unspecified; Z79.82 Long term (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; Z79.4 Long term (current) use of insulin; J44.9 Chronic obstructive pulmonary disease, unspecified; I25.10 Atherosclerotic heart disease of native coronary artery without angina pectoris; E11.9 Type 2 diabetes mellitus without complications; F17.210 Nicotine dependence, cigarettes, uncomplicated
CPT/HCPCS: 12345; 36415; 74177; 80053; 81001; 83690; 85007; 85025; 87086; 96360; 99283; J7030; Q9967

== ENCOUNTER 2019-09-05 13:33 | Outpatient (CLI) | payer MEDICARE, MEDICAID, SELFPAY ==
[2019-09-05] MEDS: iohexol 300 mg/mL 50 mL Btl PO (14:07)
--- NOTE | 2019-09-05 15:00 | CT_ITS ---
WS: [id number] CT ABDOMEN AND PELVIS WITH CONTRAST HISTORY: abnormal CT of abdomen, prior fluid distention and narrowing of the descending colon. TECHNIQUE: Imaging performed of the abdomen and pelvis with IV contrast. Single phase imaging of the abdomen. Coronal and sagittal reformats are submitted. All CT scans at [facility] use at least one of these dose optimization techniques: automated exposure control; mA and/or kV adjustment per patient size (includes targeted exams where dose is matched to clinical indication); or iterativ e reconstruction. IV CONTRAST: Omnipaque 300; 95 mL IV. Oral contrast: Yes. DLP: 937.45 mGycm COMPARISON: 07/02/2019 Lower thorax: Lung bases are clear. Resolved opacification at the RIGHT lung base. Heart is normal si ze. No hiatal hernia. Liver/biliary system: Surface of the liver continues to be irregular. No mass or bile duct dilatation . Gallbladder: Mildly contracted gallbladder. Pancreas: Normal. Spleen: Normal. Adrenal glands: Normal. Right kidney: Normal. Left kidney: Moderate atrophy of the LEFT kidney. Again noted is a solid exophytic mass from the uppe r pole measuring 2.0 x 2.0 cm. There has been a slightly increase in size since the prior study. Ther e is an additional cyst in the lower pole. Aorta: Atherosclerosis with no aneurysm. Lymphadenopathy: None. Free fluid: None. GI tract: Previously described fluid distention of the GI tract has resolved. There is now normal maury iber of the GI tract. No persistent descending colon stricture. No hyperemia involving the duodenal C -loop. There is some very mild persistent thickening of the antrum but overall improved. Abdominal wall: Mild soft tissue thickening in the RIGHT abdominal wall is probably from a recent inj ection site. Pelvis: Normal urinary bladder. No free fluid. Normal uterus and ovaries. Bones: Burst fracture at L1 is mildly sclerotic suggesting healing. Fracture has progressed since the prior study now greater than 50%. Healing compression fracture T11 is unchanged. CT/CT abdomen pelvis w con* [id number] IMPRESSION: 1. Resolved gastric distention and no residual descending colonic stricture ev ident. 2. Near complete resolution of the hyperemia and wall thickening involving the duodenal C-loop and the antrum. 3. Mildly contracted gallbladder. 4. Mild cirrhosis is unchanged. 5. Resolved opacification at the RIGHT lung base. 6. Slight increase in size of the solid mass LEFT kidney now measuring 2.0 x 2 .0 cm. Suspicious for neoplasm. 7. Mild progression of the burst fracture at L1 and stable compression fractur e at T11.
[2019-09-05 15:15] LABS: Blood Urea Nitrogen 19 mg/dL (8-23)
[2019-09-05] MEDS: iohexol 300 mg/mL 100 mL Btl IV (15:26)
== END 2019-09-05 13:34 | disposition home or self-care (01) ==
LOC: RADWPI 13:35
PROVIDERS: Family Provider Internal Medicine; PCP Internal Medicine; Visit Provider Internal Medicine
DX: R93.5 Abnormal findings on diagnostic imaging of other abdominal regions, including retroperitoneum (principal); N28.89 Other specified disorders of kidney and ureter; S32.011A Stable burst fracture of first lumbar vertebra, initial encounter for closed fracture; S22.088A Other fracture of T11-T12 vertebra, initial encounter for closed fracture; X58.XXXA Exposure to other specified factors, initial encounter
CPT/HCPCS: 74177; 82565; 84520; Q9967

== ENCOUNTER 2020-08-16 07:53 | Outpatient (CLI) | payer MEDICARE, SELFPAY ==
--- NOTE | 2020-08-16 08:06 | CT_ITS ---
WS: [id number] [facility] \ CT CHEST WITHOUT INTRAVENOUS CONTRAST HISTORY: Pulmonary nodule. TECHNIQUE: Contiguous 5 mm axial imaging performed on the thorax. Coronal and sagittal reformats are submitted. All CT scans at [facility] use at least one of these dose optimization techniq ues: automated exposure control; mA and/or kV adjustment per patient size (includes targeted exams wh ere dose is matched to clinical indication); or iterative reconstruction. CONTRAST: None DLP: 617.29 mGy-cm. COMPARISON: Chest radiograph 06/30/2020. CT thoracic spine 06/20/2019. Lungs and central airway: Moderate pulmonary hyperexpansion with mild diffuse reticular thickening. T here are several indeterminate nodules within the lungs. Subpleural 6 mm nodule anterior RIGHT upper lobe. Irregular nodule 6 mm along the posterior major fissure RIGHT upper lobe. 3 mm nodule along the minor fissure RIGHT upper lobe. 6 mm nodule is subpleural medial RIGHT lower lobe. Additional pleura l nodule measuring 5 mm LEFT lower lobe. Pleura: No effusions. Mild pleural thickening in the LEFT thorax. Heart and pericardium: Mild enlargement the heart. Prior CABG. Mediastinum and sylvia: No adenopathy identified. Vessels: Dilatation of the pulmonary artery to 3.1 cm. Mild ectasia and atherosclerosis aorta. Extens terrell coronary artery calcifications. Chest wall and lower neck: Prior CABG. Small hiatal hernia. Upper abdomen: Moderate amount of stranding around the upper pole of the LEFT kidney. This may be pos toperative change as there was a known solid renal mass associated with the LEFT kidney seen on prior studies. Osseous structures: Mild anterior wedging is chronic T11 by 20%. Burst fracture at L1 is stable with 5 mm retropulsion of the posterior superior endplate. Also noted is a hernia through the RIGHT latera l inferior chest wall between the lower ribs. This was present on prior studies and contains fat only . CT/CT chest wo con [id number] IMPRESSION: 1. Multiple subcentimeter pulmonary nodules. Recommend follow-up chest CT in 6 months. No prior studies to evaluate for chronicity or stability of these nodu les. 2. Chronic emphysema. 3. Mild pulmonary hypertension. 4. Prior CABG and cardiomegaly. 5. Stranding around the superior pole the LEFT kidney. Correlate with any rece nt interventional such as surgery. Previously described solid mass associated w ith the LEFT kidney is not identified today but may been surgically removed or not included on the CT examination of the chest.
== END 2020-08-16 07:54 | disposition home or self-care (01) ==
LOC: RADWPI 08:01
PROVIDERS: PCP Internal Medicine; Visit Provider Internal Medicine
DX: R91.1 Solitary pulmonary nodule (principal); R91.8 Other nonspecific abnormal finding of lung field; J43.9 Emphysema, unspecified; I27.20 Pulmonary hypertension, unspecified; Z95.1 Presence of aortocoronary bypass graft; I51.7 Cardiomegaly
CPT/HCPCS: 71250

== ENCOUNTER 2020-12-24 09:45 | Outpatient (CLI) | payer MEDICARE, MEDICAID, SELFPAY ==
--- NOTE | 2020-12-24 09:50 | NM_ITS ---
WS: [id number] NUCLEAR MEDICINE HIDA SCAN WITH GALLBLADDER EJECTION FRACTION HISTORY: NAUSEA, VOMITING COMPARISON: 11/30/2020 TECHNIQUE: The patient was intravenously injected with 5.1 mCi of TC99m Mebrofenin. Immediate imaging over the right upper quadrant was followed by 5 minute image and additional images for a total of 60 minutes. Normal uptake of radiotracer throughout the liver. Activity identified in the gallbladder at 10 minutes and well distended by 60 minutes. Activity in the proximal small bowel was seen by 30 minutes. Good washout of the radiotracer from the liver by 60 minutes. The patient then drank 8 ounces of Ensure Plus. Ejection fraction at 60 minutes was 85%. Normal GB ej ection fraction is 35-75%. Post fatty meal symptoms: None. NM/NM hepatobiliary w phar* [id number] IMPRESSION: 1. Normal HIDA scan. 2. Normal gallbladder ejection fraction.
== END 2020-12-24 09:46 | disposition home or self-care (01) ==
LOC: RAD 09:46
PROVIDERS: PCP Internal Medicine; Visit Provider Nurse Practitioner
DX: R11.2 Nausea with vomiting, unspecified (principal)
CPT/HCPCS: 78227; A9537

== ENCOUNTER 2021-05-26 13:25 | Outpatient (CLI) | payer MEDICARE, MEDICAID, SELFPAY ==
--- NOTE | 2021-05-26 13:39 | CT_ITS ---
WS: [id number] CT CHEST WITHOUT INTRAVENOUS CONTRAST HISTORY: PULMONARY NODULE TECHNIQUE: Contiguous 5 mm axial imaging performed on the thorax. Coronal and sagittal reformats are submitted. All CT scans at [facility] use at least one of these dose optimization techniques: automated exposure control; mA and/or kV adjustment per patient size (includes targeted exams where dose is matched to clinical indication); or iterative reconstruction. CONTRAST: None DLP: 673.47 mGy.cm COMPARISON: 08/16/2020 and 11/24/2016 Lungs and central airway: Pulmonary hyperinflation with changes of emphysema. Breathing motion artifa ct at the lung bases. Again noted is a stable 4 mm nodule RIGHT upper lobe. Previously described nodu les adjacent to the pleura and major fissure on the RIGHT have resolved. No new or increasing size pu lmonary nodule. No pneumonia. Pleura: Normal. No pleural effusion. Heart and pericardium: Moderately enlarged heart. Prior CABG. Mediastinum and sylvia: No mediastinum or hilar adenopathy. Vessels: Mild atherosclerosis aorta. Pulmonary artery is dilated to 3.8 cm. Moderate coronary artery atherosclerosis. Chest wall and lower neck: Prior CABG. Upper abdomen: Surface of the liver is irregular and lobulated consistent with cirrhosis. Cholelithia sis without acute cholecystitis. Atrophied upper pole LEFT kidney with adjacent inflammatory strandin g. Only very small portion of the kidney is included. Osseous structures: Chronic L1 burst fracture. Mild compression deformity superior endplate T11. CT/CT chest wo con [id number] IMPRESSION: 1. Stable 4 mm noncalcified RIGHT upper lobe pulmonary nodule over multiple pr ior years. No follow-up necessary. 2. The additional nodules described in the RIGHT thorax on the prior study hav e resolved. 3. Status post CABG. 4. Pulmonary hypertension. 5. Cholelithiasis and cirrhosis.
== END 2021-05-26 13:26 | disposition home or self-care (01) ==
LOC: RAD 13:30
PROVIDERS: PCP Internal Medicine; Visit Provider Internal Medicine
DX: R91.1 Solitary pulmonary nodule (principal); Z95.1 Presence of aortocoronary bypass graft; I27.20 Pulmonary hypertension, unspecified; K80.20 Calculus of gallbladder without cholecystitis without obstruction; K74.60 Unspecified cirrhosis of liver
CPT/HCPCS: 71250

== ENCOUNTER 2021-06-30 10:13 | Outpatient (CLI) | payer MEDICARE, MEDICAID, SELFPAY ==
--- NOTE | 2021-06-30 10:17 | MM_ITS ---
WS: [id number] VIEWS: MLO and CC views both breasts. 3D digital tomosynthesis is also included in this exam. Comparison made with prior exam of 10/21/2012, 10/31/2013, 03/10/2015, 10/06/2004.. Findings: There was no sign of mass, architectural distortion or suspicious calcification in either breast. Fa tty MM/[place] [id number] Impression: BI-RADS: 2-Benign FOLLOW-UP: 1 Year Follow-up This mammogram was also analyzed by the Computer Aided Detection System R2 Imag e Icing Coater.
== END 2021-06-30 10:14 | disposition home or self-care (01) ==
LOC: RAD 10:15
PROVIDERS: PCP Internal Medicine; Visit Provider Internal Medicine
DX: Z12.31 Encounter for screening mammogram for malignant neoplasm of breast (principal)
CPT/HCPCS: 77063; 77067

== ENCOUNTER 2021-08-30 09:35 | Outpatient (CLI) | payer MEDICARE, MEDICAID, SELFPAY ==
--- NOTE | 2021-08-30 09:54 | USCV_ITS ---
Deyanira Gonsales Age: 75 Gender: F : 1945 Exam Date: 08/30/2021 10:05 Ordering Phys: Lauren Alonzo BC-HAND COUNTER Technologist: Exam Location: [facility] [place]_ Indication: dm RIGHT LEFT Brachial 141.00 mmHg Brachial 130.00 mmHg Pressure (mmHg) Waveform Pressure (mmHg) Waveform 143.00 CAMPAIGN ASSISTANT 126.00 122.00 DPA 116.00 1.01 Ankle/Brachial Index 0.89 90.00 Pre-Exercise Toe Pressure 89.00 0.64 Pre-Exercise Toe/Brachial Index 0.63 FINDINGS Resting KIET of 1.01 on the right and 0.88 on the left side Resting TBI of 0.64 on the right and 0.63 on the left CONCLUSIONS #1. Normal resting KIET with abnormal resting TBI on the right side, suggestive of mild peripheral artery disease possibly involving the distal vessels/ #2 . Slightly diminished resting KIET and TBI on the left side, suggestive of mild peripheral artery disease Dr Kulwinder Arvizu MD [facility] (Electronically Signed) Final Date: 31 August 2021 09:45 S
== END 2021-08-30 09:36 | disposition home or self-care (01) ==
LOC: RAD 09:39
PROVIDERS: PCP Internal Medicine; Visit Provider Nurse Practitioner
DX: E11.9 Type 2 diabetes mellitus without complications (principal); I10 Essential (primary) hypertension; E78.2 Mixed hyperlipidemia
CPT/HCPCS: 93922

== ENCOUNTER → 2021-12-02 09:59 | Outpatient (BNVA) | payer MEDICARE, MEDICAID, SELFPAY | PROVIDERS: PCP Internal Medicine; Visit Provider Nurse Practitioner Family | DX: L98.492 Non-pressure chronic ulcer of skin of other sites with fat layer exposed (principal); N61.0 Mastitis without abscess | CPT/HCPCS: 11042; 87070; 87176; 87205; 99213; A6212 ==

== ENCOUNTER → 2021-12-09 13:07 | Outpatient (BNVA) | payer MEDICARE, MEDICAID, SELFPAY | PROVIDERS: PCP Internal Medicine; Visit Provider Surgery | DX: N60.02 Solitary cyst of left breast (principal); N61.0 Mastitis without abscess | CPT/HCPCS: 11042; A6212 ==

== ENCOUNTER 2021-12-12 10:24 | Inpatient (IN) | payer MEDICARE, MEDICAID, SELFPAY ==
[2021-12-12] VITALS (14 sets, daily range): BP systolic 88–128; BP diastolic 55–76; PULSE 84–113; RESP 16–32; TEMP 36.3–37.1; O2SAT 89–94; BMI 27.4; BMI 27.8
[2021-12-12 10:48] LABS: Glucose Point of Care 407 mg/dL (70-110)
--- NOTE | 2021-12-12 10:57 | ED_ITS ---
HPI - General Adult General: Chief complaint: General Medical Stated complaint: WEAKNESS AND HYPERGLYCEMIA Time Seen by Provider: 12/12/21 10:57 History of Present Illness: Ms. Gonsales is a 76-year-old lady with complex past medical history including history of stroke, COPD with chronic hypoxic respiratory failure, diabetes presenting to the emergency department for generalized illness. She reports having a bad week with various triggering factors. She was told that she may have cancer and has been more depressed since that time. She has not been taking her medications and noticed generalized weakness and high blood sugars. Additionally she has had back spasms in the middle of her back. Denies preceding injury or inciting event. Intensity symptoms is moderate to severe. Course has worsened. No other specific changes in health, exacerbating, or alleviating factors identified. Onset (ago): day(s) Location: back Severity: moderate Quality: other (Spasms) Pain Consistency: constant Review of Systems General: Reports: 10 or more systems reviewed and unremarkable except in HPI and below PFSH ED PFSH: Medical History (Updated 12/14/21 @ 12:04 by Jeison Syed MD) COPD (chronic obstructive pulmonary disease) Chronically uses 2 L per nasal cannula Coronary artery disease Depression Diabetes mellitus type 2 in obese Nephrolithiasis Peripheral neuropathy Surgical History History of ankle surgery History of appendectomy History of bladder surgery History of carpal tunnel surgery History of cataract surgery History of shoulder surgery Hx of CABG 2004 Family History Other Dementia Social History Smoking and tobacco status: current every day smoker Alcohol intake: never History of recent travel: No Physical Exam Const: COMMON NORMALS: alert GENERAL APPEARANCE: cooperative, well developed and ill appearing (chronically) HENMT: COMMON NORMALS: normocephalic and atraumatic HEAD & SCALP: normocephalic and atraumatic Eye: COMMON NORMALS: conjunctivae normal CONJUNCTIVA: Yes conjunctivae normal SCLERA: sclerae normal Neck/C-Spine: COMMON NORMALS: supple GENERAL: Yes trachea midline Resp: EFFORT & INSPECTION: Yes able to speak in complete sentences and Yes tachypneic AUSCULTATION: diminished lung sounds Cardio: COMMON NORMALS: regular rhythm RATE: tachycardic RHYTHM: regular rhythm GI: COMMON NORMALS: Soft to palpation PALPATION: Yes Soft to palpation and No Tenderness to palpation present (GI) Back/Pelvis: OTHER: Low thoracic upper lumbar paraspinal tenderness palpation without step-offs or deformities. Extremity: GENERAL: Yes normal exam except as noted and No edema Neuro: COMMON NORMALS: moves all extremities SENSORIUM/ORIENTATION: Yes al ert and No Orientation impaired Psych: COMMON NORMALS: mental status grossly normal and Normal thought process present THOUGHT PROCESS: Normal thought process present Course Vital Signs: Vital signs: Vital Signs Temperature 98.0 F 12/18/21 16:19 Pulse Rate 73 12/18/21 16:19 Respiratory Rate 17 12/18/21 16:19 Blood Pressure 106/67 12/18/21 16:19 Pulse Oximetry 95 12/18/21 16:19 Oxygen Delivery Me thod 12/18/21 16:19 Oxygen Flow Rate 6 12/18/21 11:33 Fraction of Inspir ed Oxygen 40 12/18/21 07:33 [facility] - General Adult Medical Decision Making 76-year-old lady with complex past medical history presenting with generalized illness in the context of medication noncompliance. Exam as above. Patient somewhat ill in appearance. EKG notable for sinus rhythm with nonspecific ST segment abnormalities, no STEMI. Hematologic panel with leukocytosis, normal hemoglobin. Metabolic panel with likely dehydration and hyperglycemia without evidence of DKA. ABG is compensated. 2-hour delta troponin is negative. Chest x-ray with likely pneumonia, no pneumothorax. Patient given RT treatment, insulin, fluids, antibiotics, and analgesia during ED course. Most likely etiology of symptoms is medication noncompliance and pneumonia. The results of ED evaluation were discussed with the patient including plan for admission due to requirement for level of care not available if discharged to prevent significant worsening/deterioration. Patient agreeable with plan. Discussed with hospitalist service who was agreeable to admit patient. Medical Records I reviewed the patient's medical records. Lab Data I reviewed the patient's lab results. : 12/18/21 05:06 12/18/21 05:06 Radiology Impressions Breast Ultrasound 12/12/21 16:34 IMPRESSION: Soft tissue ulceration with complex fluid collection with a few internal echoes in the area of concern. Correlation for abscess and infection. Ulceration with fluid collection measures 1.8 x 0.9 x 1.3 CM . Recommend follow-up to resolution. Chest X-Ray 12/18/21 05:00 IMPRESSION: 1. Prominent central pulmonary vasculature could represent pulmonary hypertension. 2. There are increased interstitial opacity seen in the mid and lower hemithoraces, findings that could represent pulmonary edema although a superimposed interstitial pneumonitis cannot be excluded. 3. Patchy opacity seen in the right lower hemithorax likely represents right lower lobe infiltrates and pneumonia. 4. Strandy opacities in the left lung base most probably represents atelectasis. Laboratory Results WBC 27.4 10^3/uL (4.0-10.0) H 12/12/21 10:53 RBC 4.48 10^6/uL (4.1-5.3) 12/12/21 10:53 Hgb 12.9 g/dL (11.5-15.3) 12/12/21 10:53 Hct 40.5 % (37.0-47.0) 12/12/21 10:53 MCV 90.4 fl (81-99) 12/12/21 10:53 MCH 28.8 pg (28.0-34.0) 12/12/21 10:53 MCHC 31.9 g/dL (30.0-36.0) 12/12/21 10:53 RDW 14.4 % (12.1-15.1) 12/12/21 10:53 Plt Count 288 10^3/cmm (130-400) 12/12/21 10:53 MPV 9.9 fL (7.4-10.4) 12/12/21 10:53 Neut % (Auto) 90.2 % 12/12/21 10:53 Lymph % (Auto) 1.7 % 12/12/21 10:53 Jennings % (Auto) 7.1 % 12/12/21 10:53 Eos % (Auto) 0.3 % 12/12/21 10:53 Baso % (Auto) 0.6 % 12/12/21 10:53 Neut # (Auto) 22.62 10^3/uL (1.8-7.7) H 12/12/21 10:53 Lymph # (Auto) 0.5 10^3/uL (0.8-4.8) L 12/12/21 10:53 Jennings # (Auto) 1.9 10^3/uL (0.2-0.9) H 12/12/21 10:53 Eos # (Auto) 0.1 10^3/uL (0.0-0.8) 12/12/21 10:53 Baso # (Auto) 0.2 10^3/uL (0.0-0.1) H 12/12/21 10:53 Nucleated RBC % (auto) 0 % 12/12/21 10:53 Nucleated RBCs # 0.0 /100WBC 12/12/21 10:53 Specimen Type Arterial 12/12/21 11:17 Sample Site Brachial, left 12/12/21 11:17 ABG pH 7.37 (7.35-7.45) 12/12/21 11:17 ABG pCO2 42.3 mmHg (35-45) 12/12/21 11:17 ABG pO2 84.5 mmHg (80.0-100.0) 12/12/21 11:17 ABG HCO3 24.4 mmol/L (22-26) 12/12/21 11:17 ABG Base Excess -0.9 mmol/L (-2.0-2.0) 12/12/21 11:17 David Test Pos 12/12/21 11:17 Hematocrit 40.8 % (37-47) 12/12/21 11:17 O2 Delivery Device Nc 12/12/21 11:17 FiO2 28.0 % 12/12/21 11:17 Tidal Volume 2.00 12/12/21 11:17 Obiee Report Developer ID Cak 12/12/21 11:17 Sodium 128 mmol/L (136-145) L 12/12/21 10:53 Potassium 4.9 mmol/L (3.5-5.1) 12/12/21 10:53 Chloride 89 mmol/L (98-107) L 12/12/21 10:53 Carbon Dioxide 25 mmol/L (22-29) 12/12/21 10:53 Anion Gap 18.9 (5-19) 12/12/21 10:53 BUN 25 mg/dL (8-23) H 12/12/21 10:53 Creatinine 1.2 mg/dL (0.5-0.9) H 12/12/21 10:53 GFR Calculation Not Reportable 12/12/21 10:53 Glucose 400 mg/dL (65-115) H 12/12/21 10:53 POC Glucose 407 mg/dL (70-110) H 12/12/21 10:43 Calculated Osmolality 287 mOsm/kg (285-295) 12/12/21 10:53 Lactic Acid 2.1 mmol/L (0.5-2.2) 12/12/21 12:22 Lactic Acid (Sepsis) 1.9 mmol/L (0.5-2.2) 12/12/21 14:25 Calcium 9.5 mg/dL (8.5-10.5) 12/12/21 10:53 Total Bilirubin 1.7 mg/dL (0.15-1.2) H 12/12/21 10:53 AST 16 U/L (0-32) 12/12/21 10:53 ALT 26 U/L (0-33) 12/12/21 10:53 Alkaline Phosphatase 124 U/L (35-105) H 12/12/21 10:53 Troponin T Baseline 18 ng/L (0-10) H 12/12/21 10:53 Troponin T 120 Minute 17.88 ng/L (0-10) H 12/12/21 12:22 Delta Troponin T -0.12 ABS# (0-10) L 12/12/21 12:22 Total Protein 7.3 g/dL (6.6-8.7) 12/12/21 10:53 Albumin 2.8 g/dL (3.5-5.2) L 12/12/21 10:53 Globulin 4.5 g/dL (1.3-4.6) 12/12/21 10:53 Coronavirus 229E (PCR) Not detected (NOT DETECT) 12/12/21 12:56 SARS-CoV-2 (PCR) Not detected (NOT DETECT) 12/12/21 12:56 Critical Care Time Critical Care Time: Critical Care Time: Yes Total Critical Care Time: 35 Attestation: Due to a high probability of clinically significant, possibly life threatening deterioration, the patient required my highest level of attention and preparedness to intervene emergently and I personally spent this critical care time directly and personally managing the patient. This critical care time included obtaining a history; examining the patient; pulse oximetry; ordering and review of laboratory and imaging studies; arranging urgent treatment with development of a management plan; evaluation of patient's response to treatment; frequent reassessment; and, discussions with other providers as applicable. It was exclusive of separately billable procedures. Primary system involved is infectious disease and pulmonary Discharge Plan Discharge Patient Disposition: Placed in Observation Admit Provider: Samson Maher Clinical Impression: Pneumonia, Sepsis, Hyperglycemia Coding Level of Care Code ED Data Technician for Chg Fwd Exam Comprehensive
[2021-12-12 11:00] LABS: Basophils # 0.2 10^3/uL (0.0-0.1); Basophils % 0.6 %; Eosinophils # 0.1 10^3/uL (0.0-0.8); Eosinophils % 0.3 %; Hematocrit 40.5 % (37.0-47.0); Hemoglobin 12.9 g/dL (11.5-15.3); Lymphocytes # 0.5 10^3/uL (0.8-4.8); Lymphocytes % 1.7 %; Mean Corpuscular HGB Conc 31.9 g/dL (30.0-36.0); Mean Corpuscular Hemoglobin 28.8 pg (28.0-34.0); Mean Corpuscular Volume 90.4 fl (81-99); Mean Platelet Volume 9.9 fL (7.4-10.4); Monocytes # 1.9 10^3/uL (0.2-0.9); Monocytes % 7.1 %; Neutrophils # 22.62 10^3/uL (1.8-7.7); Nucleated Red Blood Cells % 0 %; Platelet Count 288 10^3/cmm (130-400); Red Blood Count 4.48 10^6/uL (4.1-5.3); Red Cell Distribution Width 14.4 % (12.1-15.1); White Blood Count 27.4 10^3/uL (4.0-10.0)
--- NOTE | 2021-12-12 11:08 | XR_ITS ---
WS: [id number] Portable AP upright chest, 12/12/2021 Clinical Data: tachycardia Comparison: PA and lateral chest, 06/30/2020. Findings: There is a patchy opacity extending from the right hilum into the right lower lobe which pr obably represents pneumonia and/or atelectasis. No pneumothorax is seen. The heart is slightly enlarg ed. The aortic arch and descending thoracic aorta show atherosclerosis and tortuosity. Diaphragms are flattened Midline sternotomy sutures and mediastinal clips are present. Monitor leads are on the [facility] st wall. XR/XR chest 1V portable [id number] Impression: 1. Patchy opacity in right hilum and right lower lobe which may represent acute pneumonia. 2. Atherosclerosis, hyperinflation and cardiomegaly unchanged.
[2021-12-12 11:18] LABS: Alanine Aminotransferase 26 U/L (0-33); Albumin Level 2.8 g/dL (3.5-5.2); Alkaline Phosphatase 124 U/L (35-105); Anion Gap 18.9 (5-19); Aspartate Amino Transferase 16 U/L (0-32); Blood Urea Nitrogen 25 mg/dL (8-23); Calcium 9.5 mg/dL (8.5-10.5); Carbon Dioxide 25 mmol/L (22-29); Chloride 89 mmol/L (98-107); Creatinine Clr Calc Pharmacy 37.1894; Globulin 4.5 g/dL (1.3-4.6); Glucose 400 mg/dL (65-115); Osmolality Calculated 287 mOsm/kg (285-295); Potassium 4.9 mmol/L (3.5-5.1); Sodium 128 mmol/L (136-145); Total Bilirubin 1.7 mg/dL (0.15-1.2); Total Protein 7.3 g/dL (6.6-8.7)
[2021-12-12 11:28] LABS: ABG PCO2 42.3 mmHg (35-45); ABG PH Result 7.37 (7.35-7.45); Arterial Blood Gas Hematocrit 40.8 % (37-47); Base Excess ABG -0.9 mmol/L (-2.0-2.0); Blood Gas Allen Test Pos; Blood Gas Operator Identificat CAK; Blood Gas Sample Site Brachial, left; Blood Gas Sample Type Arterial; HCO3 ABG 24.4 mmol/L (22-26); Oxygen Device NC; PO2 ABG 84.5 mmHg (80.0-100.0)
[2021-12-12] MEDS: ketorolac 30 mg/mL INJ 15 MG IVP (11:29)
[2021-12-12] MEDS: cyclobenzaprine 10 mg Tablet PO (11:29)
[2021-12-12] MEDS: sodium chloride 0.9% 1,000 ML 999 ML IV (11:29)
--- NOTE | 2021-12-12 11:29 | ECG_ITS ---
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 Measurements Intervals [place] Rate: 113 P: 61 [place]: 137 QRS: 69 QRSD: 88 T: 37 QT: 296 QTc: 407 Interpretive Statements SINUS TACHYCARDIA LOW QRS VOLTAGE IN PRECORDIAL LEADS [QRS DEFLECTION < 1.0 mV IN CHEST LEADS] SEPTAL MYOCARDIAL INFARCTION , OF INDETERMINATE AGE [40+ ms Q WAVE IN V1/V2] Compared to ECG 06/20/2019 10:30:11 Low QRS voltage now present Myocardial infarct finding now present Sinus rhythm no longer present Electronically Signed On 12-13-2021 12:03:15 KETTLE TENDER by Jayna Jennings M.D. [id number]
[2021-12-12 11:33] LABS: Neutrophils % 90.2 %
[2021-12-12 11:34] LABS: Slide Review Slide Review Perform
[2021-12-12 11:48] LABS: Troponin(5th) Baseline 18 ng/L (0-10)
[2021-12-12] MEDS: ipratropium-albuterol 3 mL Neb INHALATION ×2 (12:03→16:45)
[2021-12-12 12:52] LABS: Lactic Sepsis W/Reflex 2.1 mmol/L (0.5-2.2); Troponin 5 2HR 17.88 ng/L (0-10)
[2021-12-12 12:53] LABS: Troponin 5 2HR Delta -0.12 ABS# (0-10)
[2021-12-12] MEDS: levofloxacin-dextrose 5 % 750 MG/150 ML PREMIX 100 MG IV (13:26)
[2021-12-12] MEDS: insulin regular-human 100 units/1 mL 10 UNIT IVP (13:27)
--- NOTE | 2021-12-12 13:30 | ECG_ITS ---
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 Measurements Intervals [place] Rate: 98 P: 66 MT: 157 QRS: 74 QRSD: 103 T: 58 QT: 338 QTc: 432 Interpretive Statements SINUS RHYTHM LOW QRS VOLTAGE IN PRECORDIAL LEADS [QRS DEFLECTION < 1.0 mV IN CHEST LEADS] SEPTAL MYOCARDIAL INFARCTION , OF INDETERMINATE AGE [40+ ms Q WAVE IN V1/V2] Compared to ECG 12/12/2021 11:29:31 Sinus tachycardia no longer present Myocardial infarct finding still present Electronically Signed On 12-13-2021 12:11:46 METHODS SPECIALIST by Jayna Jennings M.D. [id number]
[2021-12-12 14:15] LABS: Reflex Lactate Order REFLEX LACTIC ORDERD
[2021-12-12 14:44] LABS: Adenovirus Not Detected (NOT DETECT); Chlamydia Pneumoniae Not Detected (NOT DETECT); Coronavirus 229E,HKU1,NL63,OC4 Not Detected (NOT DETECT); Human Metapneumovirus Not Detected (NOT DETECT); Human Rhinovirus/Enterovirus Not Detected (NOT DETECT); Influenza A Not Detected (NOT DETECT); Influenza A H1 Not Detected (NOT DETECT); Influenza A H1-2009 Not Detected (NOT DETECT); Influenza A H3 Not Detected (NOT DETECT); Influenza B Not Detected (NOT DETECT); Mycoplasma Pneumoniae Not Detected (NOT DETECT); Parainfluenza Virus Type 1 Not Detected (NOT DETECT); Parainfluenza Virus Type 2 Not Detected (NOT DETECT); Parainfluenza Virus Type 3 Not Detected (NOT DETECT); Parainfluenza Virus Type 4 Not Detected (NOT DETECT); Respiratory Syncytial Virus A Not Detected (NOT DETECT); Respiratory Syncytial Virus B Not Detected (NOT DETECT); SARS-COV-2 Not Detected (NOT DETECT)
[2021-12-12 14:55] LABS: Lactic Acid level (Lactate) 1.9 mmol/L (0.5-2.2)
--- NOTE | 2021-12-12 16:22 | P.HP_ITS ---
Providers/Chief Complaint Admitting Physician: Samson Maher MD Primary Care Provider: Guy Salazar DO Chief Complaint: WEAKNESS AND HYPERGLYCEMIA History of Present Illness Deyanira Gonsales is a 76 year old female with past medical history of hypertension diabetes coronary artery disease, COPD on 2 Ls home oxygen, depression ,cva, was brought in with chief complaint of generalized weakness, shortness of breath slightly worsened from the baseline, nonproductive cough, back spasm. Patient denied any fever chills, headache nausea vomiting abdominal pain. Patient is not feeling well for the last 1 week or so. Upon arrival in the ER she was worked up for above-mentioned complaint Pertinent imaging studies X-ray chest: Patchy opacity in right hilum and right lower lobe which may represent acute pneumonia. Pertinent labs: WBC 27, H&H 12/40 plt : 288 , serum sodium 128, serum potassium 4.9, BUN/ serum creatinine 25/1.2 , RBS: 400 , Lactic acid normal COVID PCR negative In ER patient received, regular insulin 10 units as well as 1 L IV fluid, as well as 1 dose of levofloxacin. Review of Systems General: Reports: 10 or more systems reviewed and unremarkable except in HPI and below Const: Denies: fever(s), chills, body aches, change in appetite or diaphoresis Card: Reports: dyspnea on exertion; Denies: palpitations, edema, swelling of feet/ankles, orthopnea or leg pain with exertion Resp: Reports: dyspnea; Denies: productive cough, wheezing or pain on inspiration GI: Denies: abdominal pain, nausea, vomiting, diarrhea or constipation : Denies: flank pain Musc: Reports: back pain; Denies: extremity pain or extremity swelling Neuro: Reports: difficulty walking; Denies: headache(s) or confusion Medications/Allergies Home Medications Medication Instructions Recorded Confirmed Last Taken Type citalopram 10 mg tablet 10 mg PO DAILY 06/20/19 12/12/21 06/19/19 History duloxetine 60 mg capsule,delayed 60 mg PO DAILY 06/20/19 12/12/21 06/19/19 History release sprinkle liraglutide 0.6 mg/0.1 mL (18 mg/3 1.8 mg SUBCUT DAILY 06/20/19 12/12/21 06/19/19 History mL) subcutaneous pen injector (Victoza 2-Manjinder) metformin 1,000 mg tablet 1,000 mg PO DAILY 06/20/19 12/12/21 Unknown History tramadol 50 mg tablet 50 mg PO TID PRN Pain 06/20/19 12/12/21 06/19/19 History umeclidinium 62.5 mcg-vilanterol 1 inh inhalation BID 06/20/19 12/12/21 06/19/19 History 25 mcg/actuation powdr for inhalation (Anoro Ellipta) aspirin 81 mg tablet,delayed 81 mg PO DAILY #30 tabs 06/25/19 12/12/21 Unknown Rx release (Farzana Low Dose Aspirin) atorvastatin 40 mg tablet 40 mg PO QPM #30 tabs 06/25/19 12/12/21 Unknown Rx methocarbamol 500 mg tablet 500 mg PO QID PRN Muscle Spasms 06/25/19 12/12/21 Unknown Rx #14 tabs metoprolol tartrate 50 mg tablet 50 mg PO BID #60 tabs 06/25/19 12/12/21 06/19/19 Rx pantoprazole 40 mg tablet,delayed 40 mg PO BID #90 tabs 06/25/19 12/12/21 Unknown Rx release sennosides 8.6 mg-docusate sodium 1 tab PO BID #60 tabs 06/25/19 12/12/21 Unknown Rx 50 mg tablet insulin glargine 100 unit/mL 55 unit SUBCUT QPM 12/12/21 12/12/21 Unknown History subcutaneous solution (Lantus U-100 Insulin) insulin lispro 100 unit/mL 12 unit SUBCUT TID 12/12/21 12/12/21 Unknown History subcutaneous pen ketoconazole 2 % shampoo 1 applic topical DAILY 12/12/21 12/12/21 Unknown History losartan 25 mg tablet 25 mg PO DAILY 12/12/21 12/12/21 Unknown History polyethylene glycol 3350 17 gram 17 g PO DAILY PRN Constipation 12/12/21 12/12/21 Unknown History oral powder packet (Miralax) Allergies Allergy/AdvReac Type Severity Reaction Status Date / Time acetaminophen [From Vicodin] Allergy ADR-Confusi Verified 12/12/21 11:58 on cephalexin Allergy ALGY-Hives Verified 12/12/21 11:58 fluticasone Allergy Unknown Verified 12/12/21 11:58 [From Advair Diskus] hydrocodone [From Vicodin] Allergy ADR-Confusi Verified 12/12/21 11:58 on nitrofurantoin Allergy ALGY-Hives Verified 12/12/21 11:58 [From Macrobid] salmeterol Allergy Unknown Verified 12/12/21 11:58 [From Advair Diskus] PFSH Acute PFSH: Medical History (Updated 12/12/21 @ 16:25 by Samson Maher MD) COPD (chronic obstructive pulmonary disease) Chronically uses 2 L per nasal cannula Coronary artery disease Depression Diabetes mellitus type 2 in obese Nephrolithiasis Peripheral neuropathy Surgical History History of ankle surgery History of appendectomy History of bladder surgery History of carpal tunnel surgery History of cataract surgery History of shoulder surgery Hx of CABG 2004 Family History Other Dementia Social History Smoking and tobacco status: current every day smoker Alcohol intake: never History of recent travel: No Vitals/I&O/Wt Last Vital Signs Temp 97.4 F L 12/12/21 15:49 Pulse 84 12/12/21 15:49 Resp 16 12/12/21 15:49 BP 96/64 12/12/21 15:49 Pulse Ox 90 12/12/21 15:49 O2 Del Method 12/12/21 15:49 O2 Flow Rate 4 12/12/21 12:04 12/12/21 12/12/21 12/12/21 06:59 14:59 22:59 Intake Total 1000 / 1000 Output Total 200 / 200 Balance 1000 / 1000 -200 / 800 Weight last 48 hrs Weight 68.955 kg Weight 68.039 kg Weight 68.039 kg Physical Exam Const: COMMON NORMALS: patient oriented x3 HENMT: COMMON NORMALS: normocephalic and atraumatic HEAD & SCALP: normocephalic and atraumatic Chest: CHEST: Yes Symmetrical chest wall rise OTHER: lt breast wound foul smelling discharge. Resp: COMMON NORMALS: clear to auscultation bilaterally EFFORT & INSPECTION: Yes symmetric chest movement AUSCULTATION: clear to auscultation bilaterally Cardio: COMMON NORMALS: regular rate, regular rhythm, S1 normal heart sound present, S2 normal heart sound present, No gallops present (Cardio), No murmurs present (Cardio), No rub (Cardio) and Peripheral pulses 2+ throughout RATE: regular rate RHYTHM: regular rhythm HEART SOUNDS: S1 normal heart sound present and S2 normal heart sound present PERIPHERAL PULSES: Peripheral pulses 2+ throughout GI: COMMON NORMALS: Normal to inspection, nondistended, normoactive bowel sounds present, Soft to palpation, non-tender, No hepatosplenomegaly present and no masses AUSCULTATION: Yes normoactive bowel sounds PALPATION: Yes Soft to palpation and Yes No hepatosplenomegaly present RECTAL EXAM: deferred Extremity: COMMON NORMALS: no clubbing, cyanosis or edema and no pedal edema Neuro: COMMON NORMALS: patient oriented x3 Data : 12/13/21 05:08 12/13/21 05:08 Micro: Microbiology 12/12/21 12:22 Blood Culture - Preliminary Blood SPECIMEN COLLECTED 12/12/21 12:22 Blood Culture - Preliminary Blood SPECIMEN COLLECTED A&P Assessment and plan (1) Pneumonia: (2) Sepsis: (3) Hyperglycemia: (4) COPD (chronic obstructive pulmonary disease): (5) Coronary artery disease: (6) Diabetes mellitus type 2 in obese: (7) Depression: Plan 76 year old female with past medical history of hypertension diabetes coronary artery disease, COPD on 2 Ls home oxygen, depression ,cva, was brought in with chief complaint of generalized weakness, shortness of breath slightly worsened from the baseline, nonproductive cough, back spasm. Patient denied any fever chills, headache nausea vomiting abdominal pain. Patient is not feeling well for the last 1 week or so. Assessment: Sepsis likely secondary to pneumonia and left breast wound Hypertension Diabetes Coronary artery disease COPD Pseudohyponatremia CKD V/S TAVO ON CKD Plan: Currently patient meets sepsis criteria: Hypotension, elevated WBC, Tachycardia, tachypneic, presence of possible source, TAVO. Follow blood culture Follow procalcitonin Follow left breast ultrasound We will keep her on Zosyn for now Continue left breast wound dressing We will hold antihypertensive medications Continue Lantus sliding's insulin, diabetic diet Aspirin statin Continue DuoNebs, supplemental oxygen as needed DVT prophylaxis on Lovenox Attestations Medical Necessity Statement*: Patient is to be in hospital management of sepsis, pneumonia. Anticipated length of stay greater than 2 midnights Time Spent in Patient Care: Greater than 35 minutes (>than 50% of time spent in counselling and/or direct pt care on unit) . Coding Level of Care Code Acute Marble Polisher Hand for Chg Fwd Exam Detailed Diagnoses Pneumonia J18.9 Sepsis A41.9 Hyperglycemia R73.9 COPD (chronic obstructive pulmonary disease) J44.9 Coronary artery disease I25.10 Diabetes mellitus type 2 in obese E11.69; E66.9 Depression F32.9
--- NOTE | 2021-12-12 16:34 | US_ITS ---
WS: [id number] ULTRASOUND BREAST LEFT TECHNIQUE: Ultrasound left breast focused area of concern. CLINICAL INFORMATION: lt breast wound COMPARISON: None. FINDINGS: Soft tissue ulceration with complex fluid collection with a few internal echoes. Ulceration with kike ection measures 1.8 x 0.9 x 1.3 CM near 8:00 o'clock position LEFT breast. No evidence of additional drainable fluid collection. Ulceration at the medial inferior breast margin appears separate from demetra ast tissue. Packing was removed prior to examination. US/US breast LT limited* [id number] IMPRESSION: Soft tissue ulceration with complex fluid collection with a few internal echoes in the area of concern. Correlation for abscess and infection. Ulceration with fluid collection measures 1.8 x 0.9 x 1.3 CM . Recommend follow-up to [facility] on.
[2021-12-12 16:53] LABS: Glucose Point of Care 351 mg/dL (70-110)
--- NOTE | 2021-12-12 17:08 | ECG_ITS ---
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 Measurements Intervals [place] Rate: 77 P: 83 WI: 148 QRS: 77 QRSD: 91 T: 71 QT: 373 QTc: 424 Interpretive Statements SINUS RHYTHM LOW QRS VOLTAGE IN PRECORDIAL LEADS [QRS DEFLECTION < 1.0 mV IN CHEST LEADS] ST DEVIATION AND MODERATE T-WAVE ABNORMALITY, CONSIDER ANTERIOR ISCHEMIA [-0.1+ mV T-WAVE IN V3/V4] Compared to ECG 12/12/2021 13:30:20 T-wave abnormality now present Possible ischemia now present Myocardial infarct finding no longer present Electronically Signed On 12-13-2021 12:11:07 ADULT EDUCATION MANAGER by Jayna Jennings M.D. [id number]
[2021-12-12] MEDS: sodium chloride 0.9% 1,000 ML 75 ML IV (17:22)
[2021-12-12] MEDS: atorvastatin 40 mg Tablet PO (17:23)
[2021-12-12] MEDS: piperacillin-tazobactam 3.375 GM in sodium chloride 0.9% (plus) 50 ML IV (17:23)
[2021-12-12] MEDS: pantoprazole DR 40 mg Tablet PO (17:23)
[2021-12-12] MEDS: enoxaparin 40 mg/0.4 mL Syringe SUBCUT (17:23)
[2021-12-12] MEDS: insulin lispro 100 unit/1 mL SUBCUT ×2 (17:23→21:56)
[2021-12-12 18:19] LABS: Troponin 5 6HR 15.08 ng/L (0-10)
[2021-12-12 18:36] LABS: Troponin 5 6HR Delta -2.92 ng/L (0-12)
[2021-12-12] MEDS: insulin glargine 100 units/1 mL 30 UNIT SUBCUT (18:51)
[2021-12-12 20:54] LABS: Glucose Point of Care 391 mg/dL (70-110)
[2021-12-12] MEDS: trazodone 50 mg Tablet 25 MG PO (22:06)
[2021-12-13] VITALS (12 sets, daily range): BP systolic 90–112; BP diastolic 55–68; PULSE 90–113; RESP 16–21; TEMP 36.7–37.2; O2SAT 85–95
[2021-12-13] MEDS: piperacillin-tazobactam 3.375 GM in sodium chloride 0.9% (plus) 50 ML IV ×3 (00:09→17:32)
[2021-12-13] MEDS: methocarbamol 500 mg Tablet PO ×2 (00:18→20:23)
[2021-12-13 05:29] LABS: Eosinophils % 0.1 %; Lymphocytes # 0.6 10^3/uL (0.8-4.8); Lymphocytes % 2.7 %; Mean Corpuscular HGB Conc 30.8 g/dL (30.0-36.0); Mean Corpuscular Hemoglobin 28.4 pg (28.0-34.0); Mean Corpuscular Volume 92.4 fl (81-99); Mean Platelet Volume 9.3 fL (7.4-10.4); Monocytes # 1.1 10^3/uL (0.2-0.9); Monocytes % 5.3 %; Neutrophils # 18.23 10^3/uL (1.8-7.7); Neutrophils % 85.5 %; Nucleated Red Blood Cells % 0 %; Platelet Count 234 10^3/cmm (130-400); Red Blood Count 4.22 10^6/uL (4.1-5.3); Red Cell Distribution Width 14.4 % (12.1-15.1); White Blood Count 21.3 10^3/uL (4.0-10.0)
[2021-12-13] MEDS: sodium chloride 0.9% 1,000 ML 75 ML IV (05:53)
[2021-12-13 05:55] LABS: Anion Gap 15.8 (5-19); Blood Urea Nitrogen 26 mg/dL (8-23); Calcium 8.8 mg/dL (8.5-10.5); Carbon Dioxide 23 mmol/L (22-29); Chloride 92 mmol/L (98-107); Glucose 191 mg/dL (65-115); Magnesium 1.6 mg/dL (1.7-2.3); Osmolality Calculated 274 mOsm/kg (285-295); Potassium 3.8 mmol/L (3.5-5.1); Sodium 127 mmol/L (136-145)
[2021-12-13 06:40] LABS: Glucose Point of Care 215 mg/dL (70-110)
[2021-12-13] MEDS: ipratropium-albuterol 3 mL Neb INHALATION ×3 (07:24→15:19)
[2021-12-13] MEDS: pantoprazole DR 40 mg Tablet PO ×2 (08:58→17:31)
[2021-12-13] MEDS: citalopram 20 mg Tablet 10 MG PO (08:58)
[2021-12-13] MEDS: insulin lispro 100 unit/1 mL SUBCUT ×4 (08:58→21:58)
[2021-12-13] MEDS: aspirin 81 mg EC Tablet PO (10:17)
--- NOTE | 2021-12-13 11:08 | USCV_ITS ---
Deyanira Gonsales Age: 76 Gender: F : 1945 Exam Date: 12/13/2021 14:02 Ordering Phys: Samson Maher MD Technologist: TERESA [place] [facility] [place]ication: SHORTNESS OF BREATH BP: 112 / 68 HR: 101 Rhythm: Sinus Technical Quality: Adequate MEASUREMENTS (Male / Female) Normal Values 2D ECHO LVOT Diameter 2.0 cm LV Ejection Fraction MOD 2C 64.2 % LV Ejection Fraction 2C AL 65.8 % LA Diameter 3.6 cm LA Width 2.8 cm LA Height 4.9 cm RA Width 3.5 cm RA Height 4.2 cm Aorta at Sinotubular Diameter 1.8 cm IVC Diameter 1.4 cm M-MODE Aortic Annulus Diameter 3.2 cm LA Ao Ratio MM 1.1 MV E Point Septal Separation 0.4 cm DOPPLER AV Peak Velocity 211.2 cm/s LVOT Peak Velocity 172.0 cm/s AV Area Cont Eq vti 2.7 cm squared AV Area Cont Eq pk 2.6 cm squared MV Peak Velocity 146.0 cm/s MV Area PHT 3.1 cm squared Mitral E to A Ratio 0.9 MV E' Velocity 61.5 cm/s Mitral E to MV E' Ratio 10.6 Mitral E to LV E' Lateral Ratio 10.8 Mitral E to LV E' Septal Ratio 10.5 TR Peak Velocity 297.7 cm/s TR Peak Gradient 35.5 mmHg TR Mean Velocity 293.3 cm/s TR Mean Gradient 36.1 mmHg TR Velocity Time Integral 95.3 cm TV Peak E Velocity 59.0 cm/s Right Atrial Pressure 3.0 mmHg Pulmonary Artery Systolic Pressu 38.5 mmHg PV Peak Velocity 127.0 cm/s RV Acceleration Time 0.1 s RV Ejection Time 0.2 s RV AcT/ET 0.5 FINDINGS Left Ventricle Normal left ventricular size, systolic function and upper normal wall thickness, with no regional wall motion abnormalities. Left ventricular ejection fraction is estimated at 65 %. Normal diastolic function. Right Ventricle Normal right ventricular size and systolic function. Right ventricular systolic pressure 39 mmHg. Right Atrium Normal right atrial size. Left Atrium Normal left atrial size. Mitral Valve Mild mitral annular calcification. Structurally normal mitral valve. No mitral valve stenosis. Trace mitral valve regurgitation. Aortic Valve Structurally normal trileaflet aortic valve. No aortic valve stenosis. Trace aortic valve regurgitation. Tricuspid Valve Structurally normal tricuspid valve. No tricuspid valve stenosis. Trace tricuspid valve regurgitation. Pulmonic Valve Structurally normal pulmonic valve. No pulmonary valve stenosis. Trace pulmonary valve regurgitation. Pericardium No pericardial effusion. Aorta Normal size aortic root and proximal ascending aorta. IVC Normal IVC dimension with >50% respiratory change of the inferior vena cava. CONCLUSIONS 1. Normal left ventricular size, systolic function and upper normal wall thickness, with no regional wall motion abnormalities. Left ventricular ejection fraction is estimated at 65 %. Normal diastolic function. 2. Normal right ventricular size and systolic function. 3. Mild pulmonary hypertension with pulmonary artery pressure estimated at 39 mm Hg. 4. No prior similar studies to compare. Jayna Jennings MD (Electronically Signed) Final Date: 13 December 2021 17:34 S
[2021-12-13 11:15] LABS: Glucose Point of Care 325 mg/dL (70-110)
--- NOTE | 2021-12-13 11:54 | PC.CHAP ---
Pastoral Care Encounter/Spiritual Assessment Type of Contact [] Declined machine guide base winder visit [] Patient/Family/Request visit [] Outpatient visit [] Follow-up visit [] Physician referral [] Code/Alert [x] Routine visit [] Staff referral [] Actively dying [] Patient sleeping [] Family support [] [] Out of room [] Palliative care [] [x Receiving care in room [] Pre-surgical visit [] Trauma [] Long length of stay [] ICU visit [] Other: Relational/Emotional Strength [] Patient feels connected with others/family/visitors/staff [] Distress [] Loneliness/isolation [] Abandonment Spirituality of Patient [] Person of Olga Lidia [] Attends Mandaen of their Olga Lidia [] Believes in Prayer [] Reads Bible or Church materials [] There are Spiritual issues to be addressed Picture Framer Interventions [] Prayer [] Active listening [] Non-anxious presence [] Spiritual/emotional support [] Crisis/trauma care [] Spiritual counseling [] Bereavement support [] Provided bereavement packet [] Provided Bible/devotional materials [] Provided toy/stuffed animal, coloring book to patient or family member [] Provided Communion [] Anointing/[place] [] Salvation [] Completed spiritual assessment [] Other: Impact on Illness or Injury [] Angry [] Fearful [] Anxious [] Often cries [] Exhaustion [] Unable to work [] Unable to attend church [] Unable to walk/stand [] Unable to read [] Unable to drive [] Unable to eat/drink [] Unable to sleep [] Unable to be with family [] Patient intubated [] Other: Summary Time spent with patient
[2021-12-13] MEDS: magnesium sulfate premix 2 GM/50 ML PIGGYBACK IV (12:05)
[2021-12-13 16:45] LABS: Glucose Point of Care 362 mg/dL (70-110)
[2021-12-13] MEDS: atorvastatin 40 mg Tablet PO (17:31)
[2021-12-13] MEDS: insulin glargine 100 units/1 mL 30 UNIT SUBCUT (17:31)
[2021-12-13] MEDS: enoxaparin 40 mg/0.4 mL Syringe SUBCUT (17:31)
--- NOTE | 2021-12-13 17:53 | PM.PN ---
Subjective Subjective: Patient was seen and examined this morning, she was complaining of difficulty with sleep last night. Has remained afebrile overnight, WBC count is trending down.Saturating well on minimal supplemental oxygen. Medications: Medication Review Details: Generic Name Dose Route Start Last Admin Trade Name Freq PRN Reason Stop Dose Admin Albuterol/Ipratrop ium 3 ml 12/12/21 16:09 12/12/21 16:45 Ipratropium-Albu terol 3 Ml Neb INHALATION 3 ml Q6H PRN Administration SHORTNESS OF UMU TH Albuterol/Ipratrop ium 3 ml 12/12/21 20:00 12/13/21 15:19 Ipratropium-Albu terol 3 Ml Neb INHALATION 3 ml QID.RESPIRATORY S CH Administration Aspirin 81 mg 12/13/21 09:00 12/13/21 10:17 Aspirin 81 Mg Ec Tablet PO 81 mg DAILY KARI Administration Atorvastatin Calci um 40 mg 12/12/21 18:00 12/13/21 17:31 Atorvastatin 40 Mg Tablet PO 40 mg QPM KARI Administration Citalopram Hydrobr omide 10 mg 12/13/21 09:00 12/13/21 08:58 Citalopram 20 Mg Tablet PO 10 mg DAILY KARI Administration Enoxaparin Sodium 40 mg 12/12/21 17:00 12/13/21 17:31 Enoxaparin 40 Mg /0.4 Ml Syringe SUBCUT 40 mg Q24H KARI Administration Piperacillin Sod/T azobactam 50 mls @ 12.5 mls /hr 12/12/21 17:00 12/13/21 17:32 Sod 3.375 gm/ So dium Chloride IV 12.5 mls/hr Q8H KARI Administration Protocol Insulin Glargine 30 unit 12/12/21 18:00 12/13/21 17:31 Insulin Glargine 100 Units/1 Ml SUBCUT 30 unit QPM KARI Administration Insulin Human Lisp ro 0 unit 12/12/21 18:00 12/13/21 17:32 Insulin Lispro 1 00 Unit/1 Ml SUBCUT 12 unit WM&BEDTIME KARI Administration Protocol Methocarbamol 500 mg 12/12/21 18:00 12/13/21 00:18 Methocarbamol 50 0 Mg Tablet PO 500 mg QID PRN Administration Muscle Spasms Pantoprazole Sodiu m 40 mg 12/12/21 18:00 12/13/21 17:[address] 40 Mg Tablet PO 40 mg BID KARI Administration Vitals/I&O/Wt Last Vital Signs Temp 98.4 F 12/13/21 15:46 Pulse 113 H 12/13/21 15:46 Resp 17 12/13/21 15:46 BP 101/61 12/13/21 15:46 Pulse Ox 92 12/13/21 15:46 O2 Del Method 12/13/21 15:46 O2 Flow Rate 3 12/13/21 15:21 12/13/21 12/13/21 12/13/21 06:59 14:59 22:59 Intake Total 988.75 / 2278.75 650 / 650 Balance 988.75 / 2078.75 650 / 650 Weight last 48 hrs Weight 68.955 kg Weight 68.039 kg Weight 68.039 kg Physical Exam Const: COMMON NORMALS: patient oriented x3 HENMT: COMMON NORMALS: normocephalic and atraumatic HEAD & SCALP: normocephalic and atraumatic Chest: CHEST: Yes Symmetrical chest wall rise OTHER: lt breast wound foul smelling discharge. Resp: COMMON NORMALS: clear to auscultation bilaterally EFFORT & INSPECTION: Yes symmetric chest movement AUSCULTATION: clear to auscultation bilaterally Cardio: COMMON NORMALS: regular rate, regular rhythm, S1 normal heart sound present, S2 normal heart sound present, No gallops present (Cardio), No murmurs present (Cardio), No rub (Cardio) and Peripheral pulses 2+ throughout RATE: regular rate RHYTHM: regular rhythm HEART SOUNDS: S1 normal heart sound present and S2 normal heart sound present PERIPHERAL PULSES: Peripheral pulses 2+ throughout GI: COMMON NORMALS: Normal to inspection, nondistended, normoactive bowel sounds present, Soft to palpation, non-tender, No hepatosplenomegaly present and no masses AUSCULTATION: Yes normoactive bowel sounds PALPATION: Yes Soft to palpation and Yes No hepatosplenomegaly present RECTAL EXAM: deferred Extremity: COMMON NORMALS: no clubbing, cyanosis or edema and no pedal edema Neuro: COMMON NORMALS: patient oriented x3 Data : 12/13/21 05:08 12/13/21 05:08 Micro: Microbiology 12/12/21 12:22 Blood Culture - Preliminary Blood NEGATIVE TO DATE 12/12/21 12:22 Blood Culture - Preliminary Blood NEGATIVE TO DATE A&P Assessment and plan (1) Pneumonia: (2) Sepsis: (3) Hyperglycemia: (4) COPD (chronic obstructive pulmonary disease): (5) Coronary artery disease: (6) Diabetes mellitus type 2 in obese: (7) Depression: Plan 76 year old female with past medical history of hypertension diabetes coronary artery disease, COPD on 2 Ls home oxygen, depression ,cva, was brought in with chief complaint of generalized weakness, shortness of breath slightly worsened from the baseline, nonproductive cough, back spasm. Patient denied any fever chills, headache nausea vomiting abdominal pain. Patient is not feeling well for the last 1 week or so. Assessment: Sepsis likely secondary to pneumonia and left breast wound Hypertension Diabetes Coronary artery disease COPD Pseudohyponatremia CKD V/S TAVO ON CKD Mild pulmonary hypertension: Estimated PAP 39 Plan: Currently patient meets sepsis criteria: Hypotension, elevated WBC, Tachycardia, tachypneic, presence of possible source, TAVO. Blood culture: 2D echo: Normal LV size and systolic function, LVEF 65%, normal RV size and systolic function, procalcitonin: 1.70 Left breast ultrasound: Soft tissue ulceration with complex fluid collection with a few internal echoes in the area of concern. Correlation for abscess and infection. Ulceration with fluid collection measures 1.8 x 0.9 x 1.3 CM. We will keep her on Zosyn for now Continue left breast wound dressing We will hold antihypertensive medications Continue Lantus sliding's insulin, diabetic diet Aspirin statin Continue DuoNebs, supplemental oxygen as needed We will consult surgery a.m. for concerning findings on left breast ultrasound. DVT prophylaxis on Lovenox Attestations Medical Necessity Statement*: Patient is to in hospital management of sepsis. Coding Level of Care Code Acute Supervisor Pleating for [facility] Diagnoses Pneumonia J18.9 Sepsis A41.9 Hyperglycemia R73.9 COPD (chronic obstructive pulmonary disease) J44.9 Coronary artery disease I25.10 Diabetes mellitus type 2 in obese E11.69; E66.9 Depression F32.9
[2021-12-13] MEDS: temazepam 15 mg Capsule PO (20:23)
[2021-12-13 20:32] LABS: Add Urine Microscopic? YES; Bilirubin Urine Neg (Negative); Blood Urine 2+ (Negative); Glucose Urine UA 4+ (Normal); Ketones Urine Negative (Negative); Leukocyte Esterase Urine Negative (Negative); Nitrate Urine Negative (Negative); Protein Urine 1+ (Negative); Specific Gravity, Urine 1.015 (1.005-1.030); Urine Appearance Clear (CLEAR); Urine Color Amber (Yellow); Urobilinogen Urine Norm (Negative); pH Urine 5 (5-7)
[2021-12-13 20:33] LABS: Add Urine Culture? Yes; Bacteria Urine 4+ /hpf; RBC Urine 0-4 /hpf (0-2); Squamous Epithelial Cell Urine 0-4 /hpf (0-5); WBC Urine 0-4 /hpf (0-5)
[2021-12-13 21:16] LABS: Glucose Point of Care 368 mg/dL (70-110)
--- NOTE | 2021-12-13 23:10 | PC.NURSE ---
nurse notified, patients O2 level is low. Patient is on 3.5 nasal cannula but refuses to breathe from her nose rather then in and out of her mouth.
[2021-12-14] VITALS (19 sets, daily range): BP systolic 91–112; BP diastolic 55–66; PULSE 78–97; RESP 18–30; TEMP 36.6–36.9; O2SAT 90–95
--- NOTE | 2021-12-14 01:12 | XRR_ITS ---
PROCEDURE INFORMATION: Exam: XR Chest Exam date and time: 12/14/2021 1:23 AM Age: 76 years old Clinical indication: Shortness of breath; Prior surgery; Surgery type: Cabg; Patient HX: Worsening hypoxia. TECHNIQUE: Imaging protocol: Radiologic exam of the chest. Views: 1 view. COMPARISON: CR XR chest 1V portable [id number] 12/12/2021 11:37 AM FINDINGS: Lungs: Bilateral pulmonary parenchymal opacities are unchanged. Pulmonary vascular congestion is unchanged. Pleural spaces: No pneumothorax. There is suspicion of new pleural fluid bilaterally. Heart/Mediastinum: Unchanged Bones/joints: Sternotomy wires are in place. XR/XR chest 1V portable [id number] IMPRESSION: Suspicion of new pleural fluid. Pulmonary parenchymal abnormalities are unchanged.
[2021-12-14 01:29] LABS: ABG PCO2 59.3 mmHg (35-45); ABG PH Result 7.27 (7.35-7.45); Blood Gas Allen Test Pos; Blood Gas Sample Type Arterial; HCO3 ABG 27.3 mmol/L (22-26)
[2021-12-14 01:32] LABS: Blood Gas Sample Site Radial, right; Oxygen Device NRB
[2021-12-14] MEDS: piperacillin-tazobactam 3.375 GM in sodium chloride 0.9% (plus) 50 ML IV ×3 (01:36→16:44)
--- NOTE | 2021-12-14 01:51 | PC.NURSE ---
UPON PATIENT ROUNDING, PATIENT FOUND A&O AND NON-COMPLIANT WITH NASAL CANNULA. NURSE EDUCATED PATIENT ON IMPORTANCE OF KEEPING OXYGEN ON, AND OXYGEN RE-APPLIED. PERSONAL FITNESS MANAGER ROUNDING WITH 0000 VITALS FOUND PATIENT WITH OXYGEN OFF AND O2 SATS IN THE 80s. PERSONAL FITNESS MANAGER RE-APPLIED OXYGEN AND INFORMED NURSE. EDUCATED PATIENT AGAIN ON KEEPING OXYGEN ON. PATIENT MAINLY MOUTH BREATHING, SO NASAL CANNULA WAS SWITCHED TO A OXYMASK. UPON ROUNDING AT APPROXIMATELY 0100, PATIENT FOUND ONCE AGAIN WITH OXYGEN OFF AND O2 SATS IN THE 50s. PATIENT PLACED ON NONREBREATHER AT 100% O2, AND RESPIRATORY CALLED. PATIENT LETHARGIC BUT WILL WAKE TO TACTILE STIMULUS AND ALERT TO NAME, , AND THAT PATIENT IS IN HOSPITAL. WHEN RESPIRATORY ASKED PATIENT WHY PATIENT WAS UNCOMPLIANT WITH OXYGEN, PATIENT STATED I WAS PLAYING GAMES. DR. PERES NOTIFIED AND ORDERS PLACED.
--- NOTE | 2021-12-14 02:13 | PC.NURSE ---
[facility] PER[facility] ARRIVED TO FLOOR TO ASSESS PATIENT. PATIENT PLACED WITH SITTER, AND DECISION TO PLACE PATIENT ON BIPAP MADE. DR PERES STATED THAT IF PATIENT BECOMES UNCOMPLIANT WITH BIPAP, PATIENT MAY BE TRANSFERRED TO ICU.
--- NOTE | 2021-12-14 05:21 | PC.NURSE ---
PATIENT'S BP RUNNING LOW, DR. PERES NOTIFIED AND TOLD NURSE TO RECHECK BP IN 1 HOUR.
[2021-12-14 05:48] LABS: Eosinophils % 0.1 %; Hematocrit 35.2 % (37.0-47.0); Hemoglobin 10.9 g/dL (11.5-15.3); Lymphocytes # 0.7 10^3/uL (0.8-4.8); Lymphocytes % 3.1 %; Mean Corpuscular Hemoglobin 28.1 pg (28.0-34.0); Mean Corpuscular Volume 90.7 fl (81-99); Mean Platelet Volume 9.7 fL (7.4-10.4); Monocytes # 1.3 10^3/uL (0.2-0.9); Monocytes % 5.6 %; Neutrophils # 19.42 10^3/uL (1.8-7.7); Nucleated Red Blood Cells % 0 %; Platelet Count 249 10^3/cmm (130-400); Red Blood Count 3.88 10^6/uL (4.1-5.3); Red Cell Distribution Width 14.6 % (12.1-15.1); White Blood Count 22.6 10^3/uL (4.0-10.0)
[2021-12-14 06:23] LABS: Cortisol Random 21.19 ug/dL (2.47-19.5)
[2021-12-14 06:25] LABS: Anion Gap 15.2 (5-19); Blood Urea Nitrogen 26 mg/dL (8-23); Calcium 8.2 mg/dL (8.5-10.5); Carbon Dioxide 25 mmol/L (22-29); Chloride 96 mmol/L (98-107); Glucose 293 mg/dL (65-115); Osmolality Calculated 290 mOsm/kg (285-295); Potassium 4.2 mmol/L (3.5-5.1); Sodium 132 mmol/L (136-145)
--- NOTE | 2021-12-14 06:36 | PC.NURSE ---
PATIENT'S BP RECHECKED AT 112/66, DR PERES NOTIFIED.
[2021-12-14 06:48] LABS: Glucose Point of Care 300 mg/dL (70-110)
[2021-12-14] MEDS: insulin lispro 100 unit/1 mL SUBCUT ×4 (07:42→21:50)
--- NOTE | 2021-12-14 07:43 | PM.PN ---
Subjective Subjective: Patient was seen and examined this morning, shortness of breath had worsened last night requiring BiPAP, Morning ABG has been reviewed. X-ray chest in the morning reviewed We will give Lasix 20 mg i.v one-time dose today. Medications: Medication Review Details: Generic Name Dose Route Start Last Admin Trade Name Freq PRN Reason Stop Dose Admin Albuterol/Ipratrop ium 3 ml 12/12/21 16:09 12/12/21 16:45 Ipratropium-Albu terol 3 Ml Neb INHALATION 3 ml Q6H PRN Administration SHORTNESS OF UMU TH Albuterol/Ipratrop ium 3 ml 12/12/21 20:00 12/13/21 22:03 Ipratropium-Albu terol 3 Ml Neb INHALATION Not Given QID.RESPIRATORY S CH Aspirin 81 mg 12/13/21 09:00 12/13/21 10:17 Aspirin 81 Mg Ec Tablet PO 81 mg DAILY KARI Administration Atorvastatin Calci um 40 mg 12/12/21 18:00 12/13/21 17:31 Atorvastatin 40 Mg Tablet PO 40 mg QPM KARI Administration Citalopram Hydrobr omide 10 mg 12/13/21 09:00 12/13/21 08:58 Citalopram 20 Mg Tablet PO 10 mg DAILY KARI Administration Enoxaparin Sodium 40 mg 12/12/21 17:00 12/13/21 17:31 Enoxaparin 40 Mg /0.4 Ml Syringe SUBCUT 40 mg Q24H KARI Administration Piperacillin Sod/T azobactam 50 mls @ 12.5 mls /hr 12/12/21 17:00 12/14/21 07:10 Sod 3.375 gm/ So dium Chloride IV Infused Q8H KARI Infusion Protocol Insulin Glargine 30 unit 12/12/21 18:00 12/13/21 17:31 Insulin Glargine 100 Units/1 Ml SUBCUT 30 unit QPM KARI Administration Insulin Human Lisp ro 0 unit 12/13/21 18:00 12/13/21 21:58 Insulin Lispro 1 00 Unit/1 Ml SUBCUT 14 unit WM&BEDTIME KARI Administration Protocol Methocarbamol 500 mg 12/12/21 18:00 12/13/21 20:23 Methocarbamol 50 0 Mg Tablet PO 500 mg QID PRN Administration Muscle Spasms Pantoprazole Sodiu m 40 mg 12/12/21 18:00 12/13/21 17:[address] 40 Mg Tablet PO 40 mg BID KARI Administration Temazepam 15 mg 12/13/21 10:14 12/13/21 20:23 Temazepam 15 Mg Capsule PO 15 mg BEDTIME PRN Administration INSOMNIA Vitals/I&O/Wt Last Vital Signs Temp 98.0 F 12/14/21 07:26 Pulse 81 12/14/21 07:26 Resp 18 12/14/21 07:26 BP 92/60 12/14/21 07:26 Pulse Ox 93 12/14/21 07:26 O2 Del Method 12/14/21 07:26 O2 Flow Rate 3.5 12/13/21 23:02 FiO2 60 12/14/21 02:30 12/13/21 12/14/21 12/14/21 22:59 06:59 14:59 Intake Total 50 / 700 1100 / 1100 Balance 50 / 700 1100 / 1100 Weight last 48 hrs Weight 68.955 kg Weight 68.039 kg Weight 68.039 kg Physical Exam Const: COMMON NORMALS: patient oriented x3 HENMT: COMMON NORMALS: normocephalic and atraumatic HEAD & SCALP: normocephalic and atraumatic Chest: CHEST: Yes Symmetrical chest wall rise OTHER: lt breast wound foul smelling discharge. Resp: EFFORT & INSPECTION: Yes symmetric chest movement OTHER: Diminished air entry bilaterally Cardio: COMMON NORMALS: regular rate, regular rhythm, S1 normal heart sound present, S2 normal heart sound present, No gallops present (Cardio), No murmurs present (Cardio), No rub (Cardio) and Peripheral pulses 2+ throughout RATE: regular rate RHYTHM: regular rhythm HEART SOUNDS: S1 normal heart sound present and S2 normal heart sound present PERIPHERAL PULSES: Peripheral pulses 2+ throughout GI: COMMON NORMALS: Normal to inspection, nondistended, normoactive bowel sounds present, Soft to palpation, non-tender, No hepatosplenomegaly present and no masses AUSCULTATION: Yes normoactive bowel sounds PALPATION: Yes Soft to palpation and Yes No hepatosplenomegaly present RECTAL EXAM: deferred Extremity: COMMON NORMALS: no clubbing, cyanosis or edema and no pedal edema Neuro: COMMON NORMALS: patient oriented x3 Data : 12/14/21 05:29 12/14/21 05:29 Micro: Microbiology 12/12/21 12:22 Blood Culture - Preliminary Blood NEGATIVE TO DATE 12/12/21 12:22 Blood Culture - Preliminary Blood NEGATIVE TO DATE A&P Assessment and plan (1) Pneumonia: (2) Sepsis: (3) Hyperglycemia: (4) COPD (chronic obstructive pulmonary disease): (5) Coronary artery disease: (6) Diabetes mellitus type 2 in obese: (7) Depression: Plan 76 year old female with past medical history of hypertension diabetes coronary artery disease, COPD on 2 Ls home oxygen, depression ,cva, was brought in with chief complaint of generalized weakness, shortness of breath slightly worsened from the baseline, nonproductive cough, back spasm. Patient denied any fever chills, headache nausea vomiting abdominal pain. Patient is not feeling well for the last 1 week or so. 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 Blood culture: 2D echo: Normal LV size and systolic function, LVEF 65%, normal RV size and systolic function, procalcitonin: 1.70 Left breast ultrasound: Soft tissue ulceration with complex fluid collection with a few internal echoes in the area of concern. Correlation for abscess and infection. Ulceration with fluid collection measures 1.8 x 0.9 x 1.3 CM. We will keep her on Zosyn for now Continue left breast wound dressing We will hold antihypertensive medications Continue Lantus sliding's insulin, diabetic diet Aspirin statin Continue DuoNebs, supplemental oxygen as needed Surgery saw patient for concerning findings on left breast ultrasound. Continue with current wound care dressing. DVT prophylaxis on Lovenox Attestations Medical Necessity Statement*: Patient is in hospital for management of pneumonia, sepsis Coding Level of Care Code Acute Supervisor Compressed Yeast for [facility] Fwd Exam Detailed Diagnoses Pneumonia J18.9 Sepsis A41.9 Hyperglycemia R73.9 COPD (chronic obstructive pulmonary disease) J44.9 Coronary artery disease I25.10 Diabetes mellitus type 2 in obese E11.69; E66.9 Depression F32.9
[2021-12-14] MEDS: ipratropium-albuterol 3 mL Neb INHALATION ×4 (08:18→19:39)
[2021-12-14] MEDS: citalopram 20 mg Tablet 10 MG PO (09:38)
[2021-12-14] MEDS: pantoprazole DR 40 mg Tablet PO ×2 (09:40→17:50)
[2021-12-14] MEDS: aspirin 81 mg EC Tablet PO (09:40)
[2021-12-14] MEDS: FUROsemide 10 mg/mL SDV 2mL 20 MG IVP (10:12)
[2021-12-14 10:34] LABS: Glucose Point of Care 330 mg/dL (70-110)
[2021-12-14] MEDS: silvasorb gel 44.4 mL 1 APPLIC TOPICAL (11:27)
--- NOTE | 2021-12-14 11:56 | PM.CONSULT ---
Providers/Reason For Consult Consulting Physician/Specialty*: General Surgery Jeison Syed MD, FACS, RPVI Reason for Consult*: Left breast wound Attending Physician: Samson Maher MD Primary Care Provider: Guy Salazar DO History of Present Illness History of Present Illness Deyanira Gonsales is a 76 year old female I was consulted to evaluate the left breast wound after ultrasound showed possible fluid collection in the wound. Per primary care, the patient is septic and the source is still unknown. They want to rule out breast wound as a source of the sepsis. The patient is obtunded and confused. He is not able to provide any pertinent details of HPI. Unable to obtain review of system for the same reason. All information obtained from review of medical records and conversation with healthcare providers. Medications/Allergies Home Medications Medication Instructions Recorded Confirmed Last Taken Type citalopram 10 mg tablet 10 mg PO DAILY 06/20/19 12/12/21 06/19/19 History duloxetine 60 mg capsule,delayed 60 mg PO DAILY 06/20/19 12/12/21 06/19/19 History release sprinkle liraglutide 0.6 mg/0.1 mL (18 mg/3 1.8 mg SUBCUT DAILY 06/20/19 12/12/21 06/19/19 History mL) subcutaneous pen injector (Victoza 2-Manjinder) metformin 1,000 mg tablet 1,000 mg PO DAILY 06/20/19 12/12/21 Unknown History tramadol 50 mg tablet 50 mg PO TID PRN Pain 06/20/19 12/12/21 06/19/19 History umeclidinium 62.5 mcg-vilanterol 1 inh inhalation BID 06/20/19 12/12/21 06/19/19 History 25 mcg/actuation powdr for inhalation (Anoro Ellipta) aspirin 81 mg tablet,delayed 81 mg PO DAILY #30 tabs 06/25/19 12/12/21 Unknown Rx release (Farzana Low Dose Aspirin) atorvastatin 40 mg tablet 40 mg PO QPM #30 tabs 06/25/19 12/12/21 Unknown Rx methocarbamol 500 mg tablet 500 mg PO QID PRN Muscle Spasms 06/25/19 12/12/21 Unknown Rx #14 tabs metoprolol tartrate 50 mg tablet 50 mg PO BID #60 tabs 06/25/19 12/12/21 06/19/19 Rx pantoprazole 40 mg tablet,delayed 40 mg PO BID #90 tabs 06/25/19 12/12/21 Unknown Rx release sennosides 8.6 mg-docusate sodium 1 tab PO BID #60 tabs 06/25/19 12/12/21 Unknown Rx 50 mg tablet insulin glargine 100 unit/mL 55 unit SUBCUT QPM 12/12/21 12/12/21 Unknown History subcutaneous solution (Lantus U-100 Insulin) insulin lispro 100 unit/mL 12 unit SUBCUT TID 12/12/21 12/12/21 Unknown History subcutaneous pen ketoconazole 2 % shampoo 1 applic topical DAILY 12/12/21 12/12/21 Unknown History losartan 25 mg tablet 25 mg PO DAILY 12/12/21 12/12/21 Unknown History polyethylene glycol 3350 17 gram 17 g PO DAILY PRN Constipation 12/12/21 12/12/21 Unknown History oral powder packet (Miralax) Allergies Allergy/AdvReac Type Severity Reaction Status Date / Time acetaminophen [From Vicodin] Allergy ADR-Confusi Verified 12/12/21 11:58 on cephalexin Allergy ALGY-Hives Verified 12/12/21 11:58 fluticasone Allergy Unknown Verified 12/12/21 11:58 [From Advair Diskus] hydrocodone [From Vicodin] Allergy ADR-Confusi Verified 12/12/21 11:58 on nitrofurantoin Allergy ALGY-Hives Verified 12/12/21 11:58 [From Macrobid] salmeterol Allergy Unknown Verified 12/12/21 11:58 [From Advair Diskus] Current Medications Generic Name Dose Route Start Last Admin Trade Name Freq PRN Reason Stop Dose Admin Albuterol/Ipratropium 3 ml 12/12/21 16:09 12/12/21 16:45 Ipratropium-Albuterol 3 Ml Neb INHALATION 3 ml Q6H PRN Administration SHORTNESS OF BREATH Albuterol/Ipratropium 3 ml 12/12/21 20:00 12/14/21 11:00 Ipratropium-Albuterol 3 Ml Neb INHALATION 3 ml QID.RESPIRATORY KARI Administration Aspirin 81 mg 12/13/21 09:00 12/14/21 09:40 Aspirin 81 Mg Ec Tablet PO 81 mg DAILY KARI Administration Atorvastatin Calcium 40 mg 12/12/21 18:00 12/13/21 17:31 Atorvastatin 40 Mg Tablet PO 40 mg QPM KARI Administration Citalopram Hydrobromide 10 mg 12/13/21 09:00 12/14/21 09:38 Citalopram 20 Mg Tablet PO 10 mg DAILY KARI Administration Enoxaparin Sodium 40 mg 12/12/21 17:00 12/13/21 17:31 Enoxaparin 40 Mg/0.4 Ml Syringe SUBCUT 40 mg Q24H KARI Administration Piperacillin Sod/Tazobactam 50 mls @ 12.5 mls/hr 12/12/21 17:00 12/14/21 09:04 Sod 3.375 gm/ Sodium Chloride IV 12.5 mls/hr Q8H KARI Administration Protocol Insulin Glargine 30 unit 12/12/21 18:00 12/13/21 17:31 Insulin Glargine 100 Units/1 Ml SUBCUT 30 unit QPM KARI Administration Insulin Human Lispro 0 unit 12/13/21 18:00 12/14/21 07:42 Insulin Lispro 100 Unit/1 Ml SUBCUT 10 unit WM&BEDTIME KARI Administration Protocol Methocarbamol 500 mg 12/12/21 18:00 12/13/21 20:23 Methocarbamol 500 Mg Tablet PO 500 mg QID PRN Administration Muscle Spasms Pantoprazole Sodium 40 mg 12/12/21 18:00 12/14/21 09:[address] 40 Mg Tablet PO 40 mg BID KARI Administration Silver Sulfadiazine 1 applic 12/14/21 09:00 12/14/21 11:27 Silvasorb Gel 44.4 Ml TOPICAL 1 applic Q24H KARI Administration Temazepam 15 mg 12/13/21 10:14 12/13/21 20:23 Temazepam 15 Mg Capsule PO 15 mg BEDTIME PRN Administration INSOMNIA PFSH Acute PFSH: Medical History (Updated 12/14/21 @ 12:04 by Jeison Syed MD) COPD (chronic obstructive pulmonary disease) Chronically uses 2 L per nasal cannula Coronary artery disease Depression Diabetes mellitus type 2 in obese Nephrolithiasis Peripheral neuropathy Surgical History History of ankle surgery History of appendectomy History of bladder surgery History of carpal tunnel surgery History of cataract surgery History of shoulder surgery Hx of CABG 2004 Family History Other Dementia Social History Smoking and tobacco status: current every day smoker Alcohol intake: never History of recent travel: No Vitals/I&O/Wt Last Vital Signs Temp 98 F 12/14/21 11:21 Pulse 83 12/14/21 11:21 Resp 24 H 12/14/21 11:21 BP 96/61 12/14/21 11:21 Pulse Ox 90 12/14/21 11:21 O2 Del Method 12/14/21 11:21 O2 Flow Rate 50 12/14/21 11:21 FiO2 50 12/14/21 11:04 12/13/21 12/14/21 12/14/21 22:59 06:59 14:59 Intake Total 50 / 700 1454 / 1454 Output Total 120 / 120 Balance 50 / 700 1334 / 1334 Weight last 48 hrs Weight 152 lb 0.3 oz Physical Exam Narrative: General: Obtunded, not able to maintain a conversation, she is on a BiPAP mask Psych: Not interactive, very somnolent, Eyes: [sclerae are white] Head/ENT: [normocephalic, symmetric] CV: [regular] pulse, Lungs: [symmetrical chest rise] There is a 1.5 x 1 cm wound at the medial aspect of the left breast, in the most medial part of the inframammary fold. The wound is packed with gauze. There is no erythema around the wound. It appears to be very clean. Only serous exudate from the wound. I probed the wound and there is no tracking anywhere. Data : 12/14/21 05:29 12/14/21 05:29 Micro: Microbiology 12/12/21 12:22 Blood Culture - Preliminary Blood NEGATIVE TO DATE 12/12/21 12:22 Blood Culture - Preliminary Blood NEGATIVE TO DATE A&P Assessment and plan (1) Sepsis: (2) Open wound of left breast: Plan The patient's wound is very clean. It is healing well. This fluid collection described on ultrasound is normal serous exudate. I do not see any tracking anywhere. There is no way this wound is related to the patient's sepsis. However, it requires appropriate management. Continue wet-to-dry packing daily. Consider to switch to Aquacel Ag in 5 to 10 days. Please consult wound care to continue. In case there are any signs of wound infection, please reconsult general surgery. Work-up of the patient's sepsis and leukocytosis per primary team. At this time I will sign off. Please, call with questions/concerns. Coding Level of Care Code Acute Card Placer for [facility] Fwprabhu Diagnoses Sepsis A41.9 Open wound of left breast S21.002A
[2021-12-14] MEDS: vancomycin 750 MG in sodium chloride 0.9% 250 ML 250 MG IV (13:13)
[2021-12-14] MEDS: enoxaparin 40 mg/0.4 mL Syringe SUBCUT (16:45)
[2021-12-14 16:58] LABS: Glucose Point of Care 309 mg/dL (70-110)
[2021-12-14] MEDS: insulin glargine 100 units/1 mL 30 UNIT SUBCUT (17:50)
[2021-12-14] MEDS: atorvastatin 40 mg Tablet PO (17:50)
[2021-12-14 21:37] LABS: Glucose Point of Care 352 mg/dL (70-110)
[2021-12-14] MEDS: TRAMadol 50 mg Tablet PO (23:19)
[2021-12-15] VITALS (16 sets, daily range): BP systolic 93–119; BP diastolic 60–71; PULSE 75–97; RESP 16–31; TEMP 36.4–37.2; O2SAT 86–94
[2021-12-15] MEDS: piperacillin-tazobactam 3.375 GM in sodium chloride 0.9% (plus) 50 ML IV ×3 (01:05→17:20)
[2021-12-15 04:24] LABS: ABG PCO2 57.1 mmHg (35-45); ABG PH Result 7.33 (7.35-7.45); Arterial Blood Gas Hematocrit 32.9 % (37-47); Base Excess ABG 2.9 mmol/L (-2.0-2.0); Blood Gas Allen Test Pos; Blood Gas Sample Type Arterial; Carboxyhemoglobin 1.1 %THgb (0.4-20.1); HCO3 ABG 29.9 mmol/L (22-26); HGB O2 Sat 89.9 % (95-100); Ionized Calcium Level - ABG 1.1 mmol/L (1.1-1.4); Methemoglobin 0.6 % (0.4-1.5); Oxygen Saturation ABG 91.4; PO2 ABG 57.1 mmHg (80.0-100.0); Potassium Level - ABG 3.7 mmol/L (3.5-5.0); Total Hemoglobin 10.7 g/dL (12-16)
[2021-12-15 04:26] LABS: Alveolar-Arterial Oxygen Gradi 30.1 mmHg (5-10); Blood Gas Sample Site Brachial, right; Oxygen Device BIPAP
[2021-12-15 05:57] LABS: Hematocrit 35.4 % (37.0-47.0); Hemoglobin 10.9 g/dL (11.5-15.3); Mean Corpuscular HGB Conc 30.8 g/dL (30.0-36.0); Mean Corpuscular Volume 94.1 fl (81-99); Mean Platelet Volume 9.3 fL (7.4-10.4); Platelet Count 356 10^3/cmm (130-400); Red Blood Count 3.76 10^6/uL (4.1-5.3); Red Cell Distribution Width 15.1 % (12.1-15.1); White Blood Count 17.2 10^3/uL (4.0-10.0)
[2021-12-15 06:29] LABS: Anion Gap 12.8 (5-19); Blood Urea Nitrogen 24 mg/dL (8-23); Calcium 8.2 mg/dL (8.5-10.5); Carbon Dioxide 28 mmol/L (22-29); Chloride 95 mmol/L (98-107); Glucose 229 mg/dL (65-115); NT Pro B Type Natriuretic Pept 1778 pg/mL (0-125); Osmolality Calculated 285 mOsm/kg (285-295); Potassium 3.8 mmol/L (3.5-5.1); Sodium 132 mmol/L (136-145)
[2021-12-15 06:30] LABS: Glucose Point of Care 252 mg/dL (70-110)
--- NOTE | 2021-12-15 06:33 | PC.NURSE ---
BIPAP/O2 Did well wearing BIPAP through the night except for asking if she could have it off for a few minutes to let her nose rest. Cont pulse ox has ranged from 88-92% with freq checks. This morning wanted to drink a cup of coffee. Placed on 6l HF cannula and she is maintaining sats 89-91% except when she got up to BSC. With this she dropped into low 80's but recovered quickly.
[2021-12-15 06:37] LABS: Total Cells Counted 100 (0-100)
[2021-12-15 06:38] LABS: Absolute Neutrophil 13.4 10^3/cmm (1.4-6.5); Absolute Segmented Neutrophil 12.6 10/cmm (1.6-7.1); Band Neutrophils Absolute 0.9 10^3/cmm (0.0-1.2); Eosinophils 0 %; Lymphocytes 8 %; Lymphocytes Absolute 1.4 10^3/cmm (1.2-3.4); Monocytes Absolute 1.7 10^3/cmm (0.1-0.6); Platelet Estimate Normal (Normal); Segmented Neutrophils 73 %; Toxic Granulation 1+
[2021-12-15 06:39] LABS: Dohle Bodies 1+; Toxic Vacuolation 1+
[2021-12-15 06:40] LABS: Burr Cells 1+
[2021-12-15] MEDS: ipratropium-albuterol 3 mL Neb INHALATION ×4 (07:39→19:59)
[2021-12-15] MEDS: insulin lispro 100 unit/1 mL SUBCUT ×4 (08:02→21:53)
[2021-12-15] MEDS: pantoprazole DR 40 mg Tablet PO ×2 (09:11→17:17)
[2021-12-15] MEDS: aspirin 81 mg EC Tablet PO (09:11)
[2021-12-15] MEDS: citalopram 20 mg Tablet 10 MG PO (09:13)
[2021-12-15] MEDS: FUROsemide 10 mg/mL SDV 4mL 40 MG IVP (09:15)
--- NOTE | 2021-12-15 10:51 | PC.SOCIAL ---
IMM update IMM updated with patient. Verbalized an understanding. Copy Pg 2 provided. Initialled, dated, timed, and placed in chart.
[2021-12-15 11:10] LABS: Glucose Point of Care 214 mg/dL (70-110)
[2021-12-15] MEDS: acetylcysteine 200 mg/mL SDV 4 mL 100 MG INHALATION ×3 (11:13→19:59)
[2021-12-15] MEDS: vancomycin 750 MG in sodium chloride 0.9% 250 ML 250 MG IV (11:23)
--- NOTE | 2021-12-15 11:36 | P.PN_ITS ---
Subjective Subjective: Patient was seen and examined this morning, denied any significant shortness of breath, did well on BiPAP last night, currently she is requiring 8 L oxygen through HFNC to maintain a saturation greater than 90. Leukocytosis is trending down. Good urine output to Lasix. Medications: Medication Review Details: Generic Name Dose Route Start Last Admin Trade Name Freq PRN Reason Stop Dose Admin Acetylcysteine 100 mg 12/15/21 12:00 12/15/21 11:13 Acetylcysteine 2 00 Mg/Ml Sdv 4 Ml INHALATION 100 mg QID.RESPIRATORY S CH Administration Albuterol/Ipratrop ium 3 ml 12/12/21 16:09 12/12/21 16:45 Ipratropium-Albu terol 3 Ml Neb INHALATION 3 ml Q6H PRN Administration SHORTNESS OF UMU TH Albuterol/Ipratrop ium 3 ml 12/12/21 20:00 12/15/21 11:13 Ipratropium-Albu terol 3 Ml Neb INHALATION 3 ml QID.RESPIRATORY S CH Administration Aspirin 81 mg 12/13/21 09:00 12/15/21 09:11 Aspirin 81 Mg Ec Tablet PO 81 mg DAILY KARI Administration Atorvastatin Calci um 40 mg 12/12/21 18:00 12/14/21 17:50 Atorvastatin 40 Mg Tablet PO 40 mg QPM KARI Administration Citalopram Hydrobr omide 10 mg 12/13/21 09:00 12/15/21 09:13 Citalopram 20 Mg Tablet PO 10 mg DAILY KARI Administration Enoxaparin Sodium 40 mg 12/12/21 17:00 12/14/21 16:45 Enoxaparin 40 Mg /0.4 Ml Syringe SUBCUT 40 mg Q24H KARI Administration Furosemide 40 mg 12/15/21 08:15 12/15/21 09:15 Furosemide 10 Mg /Ml Sdv 4ml IVP 40 mg Q24H KARI Administration Piperacillin Sod/T azobactam 50 mls @ 12.5 mls /hr 12/12/21 17:00 12/15/21 09:18 Sod 3.375 gm/ So dium Chloride IV 12.5 mls/hr Q8H KARI Administration Protocol Vancomycin HCl 750 mg/ Sodium 250 mls @ 250 mls /hr 12/14/21 10:00 12/14/21 15:15 Chloride IV Infused Q24H KARI Infusion Insulin Glargine 30 unit 12/12/21 18:00 12/14/21 17:50 Insulin Glargine 100 Units/1 Ml SUBCUT 30 unit QPM KARI Administration Insulin Human Lisp ro 0 unit 12/13/21 18:00 12/15/21 08:02 Insulin Lispro 1 00 Unit/1 Ml SUBCUT 8 unit WM&BEDTIME KARI Administration Protocol Methocarbamol 500 mg 12/12/21 18:00 12/13/21 20:23 Methocarbamol 50 0 Mg Tablet PO 500 mg QID PRN Administration Muscle Spasms Pantoprazole Sodiu m 40 mg 12/12/21 18:00 12/15/21 09:[address] 40 Mg Tablet PO 40 mg BID [facility] Administration Silver Sulfadiazin e 1 applic 12/14/21 09:00 12/14/21 11:27 Silvasorb Gel 44 .4 Ml TOPICAL 1 applic Q24H KARI Administration Temazepam 15 mg 12/13/21 10:14 12/13/21 20:23 Temazepam 15 Mg Capsule PO 15 mg BEDTIME PRN Administration INSOMNIA Tramadol HCl 50 mg 12/14/21 09:53 12/14/21 23:19 Tramadol 50 Mg T ablet PO 50 mg TID PRN Administration MODERATE PAIN Vitals/I&O/Wt Last Vital Signs Temp 97.8 F 12/15/21 08:00 Pulse 93 12/15/21 11:21 Resp 22 H 12/15/21 11:21 BP 100/65 12/15/21 08:00 Pulse Ox 93 12/15/21 11:21 O2 Del Method 12/15/21 11:21 O2 Flow Rate 8 12/15/21 11:21 FiO2 50 12/15/21 04:34 12/14/21 12/15/21 12/15/21 22:59 06:59 14:59 Intake Total 560 / 2424 290 / 2714 120 / 120 Output Total 950 / 1470 500 / 1970 900 / 900 Balance -390 / 954 -210 / 744 -780 / -780 Physical Exam Const: COMMON NORMALS: patient oriented x3 HENMT: COMMON NORMALS: normocephalic and atraumatic HEAD & SCALP: normocephalic and atraumatic Chest: CHEST: Yes Symmetrical chest wall rise OTHER: lt breast wound clean, packed Resp: COMMON NORMALS: clear to auscultation bilaterally EFFORT & INSPECTION: Yes symmetric chest movement AUSCULTATION: clear to auscultation bilaterally OTHER: Diminished air entry bilaterally Cardio: COMMON NORMALS: regular rate, regular rhythm, S1 normal heart sound present, S2 normal heart sound present, No gallops present (Cardio), No murmurs present (Cardio), No rub (Cardio) and Peripheral pulses 2+ throughout RATE: regular rate RHYTHM: regular rhythm HEART SOUNDS: S1 normal heart sound present and S2 normal heart sound present PERIPHERAL PULSES: Peripheral pulses 2+ throughout GI: COMMON NORMALS: Normal to inspection, nondistended, normoactive bowel sounds present, Soft to palpation, non-tender, No hepatosplenomegaly present and no masses AUSCULTATION: Yes normoactive bowel sounds PALPATION: Yes Soft to palpation and Yes No hepatosplenomegaly present RECTAL EXAM: deferred Extremity: COMMON NORMALS: no clubbing, cyanosis or edema and no pedal edema Neuro: COMMON NORMALS: patient oriented x3 Data : 12/15/21 05:39 12/15/21 05:39 Micro: Microbiology 12/13/21 20:00 Urine Culture - Preliminary Urine,Clean Catch A&P Assessment and plan (1) Pneumonia: (2) Sepsis: (3) Hyperglycemia: (4) COPD (chronic obstructive pulmonary disease): (5) Coronary artery disease: (6) Diabetes mellitus type 2 in obese: (7) Depression: Plan 76 year old female with past medical history of hypertension diabetes coronary artery disease, COPD on 2 Ls home oxygen, depression ,cva, was brought in with chief complaint of generalized weakness, shortness of breath slightly worsened from the baseline, nonproductive cough, back spasm. Patient denied any fever chills, headache nausea vomiting abdominal pain. Patient is not feeling well for the last 1 week or so. 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 Blood culture: NTD Urine culture:NTD MRSA PCR: 2D echo: Normal LV size and systolic function, LVEF 65%, normal RV size and systolic function, X-ray chest: Bilateral pulmonary parenchymal opacities are unchanged. Pulmonary vascular congestion is unchanged. procalcitonin: 1.70 proBNP: 1778 Left breast ultrasound: Soft tissue ulceration with complex fluid collection with a few internal echoes in the area of concern. Correlation for abscess and infection. Ulceration with fluid collection measures 1.8 x 0.9 x 1.3 CM. We will keep her on vancomycin & Zosyn Continue left breast wound dressing We will hold antihypertensive medications Continue Lantus sliding's insulin, diabetic diet Continue aspirin statin Continue DuoNebs, supplemental oxygen as needed Surgery saw patient for concerning findings on left breast ultrasound. Continue with current wound care dressing Lasix 40 IV daily Monitor intake output charting K>4,MG>2 weeks. DVT prophylaxis on Lovenox Attestations Medical Necessity Statement*: Patient is in hospital for management of respiratory failure. Time Spent in Patient Care: Greater than 35 minutes (>than 50% of time spent in counselling and/or direct pt care on unit) . Coding Level of Care Code Acute Intellectual Property Manager for [facility] Fwd Exam Detailed Diagnoses Pneumonia J18.9 Sepsis A41.9 Hyperglycemia R73.9 COPD (chronic obstructive pulmonary disease) J44.9 Coronary artery disease I25.10 Diabetes mellitus type 2 in obese E11.69; E66.9 Depression F32.9
[2021-12-15] MEDS: guaiFENesin 600 mg Tablet PO ×2 (11:41→17:17)
[2021-12-15] MEDS: enoxaparin 40 mg/0.4 mL Syringe SUBCUT (17:16)
[2021-12-15] MEDS: silvasorb gel 44.4 mL 1 APPLIC TOPICAL (17:16)
[2021-12-15] MEDS: atorvastatin 40 mg Tablet PO (17:16)
[2021-12-15] MEDS: TRAMadol 50 mg Tablet PO (17:17)
[2021-12-15 17:30] LABS: Glucose Point of Care 234 mg/dL (70-110)
[2021-12-15] MEDS: insulin glargine 100 units/1 mL 30 UNIT SUBCUT (17:37)
--- NOTE | 2021-12-15 19:03 | PC.NURSE ---
report given to Naye CALZADA
[2021-12-15 21:23] LABS: Glucose Point of Care 384 mg/dL (70-110)
[2021-12-16] VITALS (12 sets, daily range): BP systolic 97–119; BP diastolic 60–73; PULSE 74–97; RESP 20–28; TEMP 36.3–36.8; O2SAT 90–98
[2021-12-16] MEDS: piperacillin-tazobactam 3.375 GM in sodium chloride 0.9% (plus) 50 ML IV ×3 (00:34→21:54)
[2021-12-16 05:50] LABS: Basophils % 0.2 %; Eosinophils # 0.1 10^3/uL (0.0-0.8); Eosinophils % 0.8 %; Hematocrit 34.9 % (37.0-47.0); Hemoglobin 10.7 g/dL (11.5-15.3); Lymphocytes # 0.8 10^3/uL (0.8-4.8); Lymphocytes % 7.7 %; Mean Corpuscular HGB Conc 30.7 g/dL (30.0-36.0); Mean Corpuscular Volume 91.4 fl (81-99); Mean Platelet Volume 9.6 fL (7.4-10.4); Monocytes # 0.8 10^3/uL (0.2-0.9); Monocytes % 8.1 %; Neutrophils # 6.91 10^3/uL (1.8-7.7); Neutrophils % 70.5 %; Nucleated Red Blood Cells % 0 %; Platelet Count 322 10^3/cmm (130-400); Red Blood Count 3.82 10^6/uL (4.1-5.3); White Blood Count 9.8 10^3/uL (4.0-10.0)
[2021-12-16 06:20] LABS: Anion Gap 12.3 (5-19); Blood Urea Nitrogen 21 mg/dL (8-23); Calcium 8.2 mg/dL (8.5-10.5); Carbon Dioxide 32 mmol/L (22-29); Chloride 91 mmol/L (98-107); Glucose 253 mg/dL (65-115); Osmolality Calculated 286 mOsm/kg (285-295); Potassium 3.3 mmol/L (3.5-5.1); Sodium 132 mmol/L (136-145)
[2021-12-16 06:26] LABS: Creatinine Clr Calc Pharmacy 37.4273
[2021-12-16 06:32] LABS: Glucose Point of Care 249 mg/dL (70-110)
[2021-12-16] MEDS: acetylcysteine 200 mg/mL SDV 4 mL 100 MG INHALATION ×3 (08:16→16:10)
[2021-12-16] MEDS: ipratropium-albuterol 3 mL Neb INHALATION ×4 (08:16→20:34)
[2021-12-16] MEDS: insulin lispro 100 unit/1 mL SUBCUT ×4 (10:00→21:53)
[2021-12-16] MEDS: guaiFENesin 600 mg Tablet PO ×2 (10:01→17:08)
[2021-12-16] MEDS: aspirin 81 mg EC Tablet PO (10:01)
[2021-12-16] MEDS: FUROsemide 10 mg/mL SDV 4mL 40 MG IVP (10:01)
[2021-12-16] MEDS: pantoprazole DR 40 mg Tablet PO ×2 (10:01→17:08)
[2021-12-16] MEDS: vancomycin 750 MG in sodium chloride 0.9% 250 ML 250 MG IV (10:02)
[2021-12-16] MEDS: citalopram 20 mg Tablet 10 MG PO (10:02)
[2021-12-16] MEDS: potassium chloride ER 20 mEq Tablet 40 MEQ PO (10:03)
[2021-12-16 10:59] LABS: Glucose Point of Care 360 mg/dL (70-110)
--- NOTE | 2021-12-16 14:02 | P.PN_ITS ---
Subjective Subjective: Patient was seen and examined this morning, currently requiring 8 to 10 L oxygen through HFNC To maintain saturation greater than 90, continues to have good urine output with Lasix, WBC has normalized. Medications: Medication Review Details: Generic Name Dose Route Start Last Admin Trade Name Freq PRN Reason Stop Dose Admin Acetylcysteine 100 mg 12/15/21 12:00 12/16/21 12:12 Acetylcysteine 2 00 Mg/Ml Sdv 4 Ml INHALATION 100 mg QID.RESPIRATORY S CH Administration Albuterol/Ipratrop ium 3 ml 12/12/21 16:09 12/12/21 16:45 Ipratropium-Albu terol 3 Ml Neb INHALATION 3 ml Q6H PRN Administration SHORTNESS OF UMU TH Albuterol/Ipratrop ium 3 ml 12/12/21 20:00 12/16/21 12:12 Ipratropium-Albu terol 3 Ml Neb INHALATION 3 ml QID.RESPIRATORY S CH Administration Aspirin 81 mg 12/13/21 09:00 12/16/21 10:01 Aspirin 81 Mg Ec Tablet PO 81 mg DAILY KARI Administration Atorvastatin Calci um 40 mg 12/12/21 18:00 12/15/21 17:16 Atorvastatin 40 Mg Tablet PO 40 mg QPM KARI Administration Citalopram Hydrobr omide 10 mg 12/13/21 09:00 12/16/21 10:02 Citalopram 20 Mg Tablet PO 10 mg DAILY KARI Administration Enoxaparin Sodium 40 mg 12/12/21 17:00 12/15/21 17:16 Enoxaparin 40 Mg /0.4 Ml Syringe SUBCUT 40 mg Q24H KARI Administration Furosemide 40 mg 12/15/21 08:15 12/16/21 10:01 Furosemide 10 Mg /Ml Sdv 4ml IVP 40 mg Q24H KARI Administration Guaifenesin 600 mg 12/15/21 09:40 12/16/21 10:01 Guaifenesin 600 Mg Tablet PO 600 mg BID KARI Administration Piperacillin Sod/T azobactam 50 mls @ 12.5 mls /hr 12/12/21 17:00 12/16/21 05:02 Sod 3.375 gm/ So dium Chloride IV Infused Q8H KARI Infusion Protocol Vancomycin HCl 750 mg/ Sodium 250 mls @ 250 mls /hr 12/14/21 10:00 12/16/21 10:02 Chloride IV 250 mls/hr Q24H KARI Administration Insulin Glargine 30 unit 12/12/21 18:00 12/15/21 17:37 Insulin Glargine 100 Units/1 Ml SUBCUT 30 unit QPM KARI Administration Insulin Human Lisp ro 0 unit 12/13/21 18:00 12/16/21 10:00 Insulin Lispro 1 00 Unit/1 Ml SUBCUT 8 unit WM&BEDTIME KARI Administration Protocol Methocarbamol 500 mg 12/12/21 18:00 12/13/21 20:23 Methocarbamol 50 0 Mg Tablet PO 500 mg QID PRN Administration Muscle Spasms Pantoprazole Sodiu m 40 mg 12/12/21 18:00 12/16/21 10:[address] 40 Mg Tablet PO 40 mg BID KARI Administration Silver Sulfadiazin e 1 applic 12/14/21 09:00 12/15/21 17:16 Silvasorb Gel 44 .4 Ml TOPICAL 1 applic Q24H KARI Administration Temazepam 15 mg 12/13/21 10:14 12/13/21 20:23 Temazepam 15 Mg Capsule PO 15 mg BEDTIME PRN Administration INSOMNIA Tramadol HCl 50 mg 12/14/21 09:53 12/15/21 17:17 Tramadol 50 Mg T ablet PO 50 mg TID PRN Administration MODERATE PAIN Vitals/I&O/Wt Last Vital Signs Temp 97.7 F 12/16/21 11:37 Pulse 97 12/16/21 12:13 Resp 28 H 12/16/21 12:13 BP 113/70 12/16/21 11:37 Pulse Ox 92 12/16/21 12:13 O2 Del Method 12/16/21 12:13 O2 Flow Rate 10 12/16/21 12:13 FiO2 50 12/16/21 03:38 12/15/21 12/16/21 12/16/21 22:59 06:59 14:59 Intake Total 170 / 590 1090 / 1680 120 / 120 Output Total 800 / 2050 550 / 2600 200 / 200 Balance -630 / -1460 540 / -920 -80 / -80 Physical Exam Const: COMMON NORMALS: patient oriented x3 HENMT: COMMON NORMALS: normocephalic and atraumatic HEAD & SCALP: normocephalic and atraumatic Chest: CHEST: Yes Symmetrical chest wall rise OTHER: lt breast wound clean, packed Resp: COMMON NORMALS: clear to auscultation bilaterally EFFORT & INSPECTION: Yes symmetric chest movement AUSCULTATION: clear to auscultation bilaterally OTHER: Diminished air entry bilaterally Cardio: COMMON NORMALS: regular rate, regular rhythm, S1 normal heart sound present, S2 normal heart sound present, No gallops present (Cardio), No murmurs present (Cardio), No rub (Cardio) and Peripheral pulses 2+ throughout RATE: regular rate RHYTHM: regular rhythm HEART SOUNDS: S1 normal heart sound present and S2 normal heart sound present PERIPHERAL PULSES: Peripheral pulses 2+ throughout GI: COMMON NORMALS: Normal to inspection, nondistended, normoactive bowel sounds present, Soft to palpation, non-tender, No hepatosplenomegaly present and no masses AUSCULTATION: Yes normoactive bowel sounds PALPATION: Yes Soft to palpation and Yes No hepatosplenomegaly present RECTAL EXAM: deferred Extremity: COMMON NORMALS: no clubbing, cyanosis or edema and no pedal edema Neuro: COMMON NORMALS: patient oriented x3 Data : 12/16/21 05:05 12/16/21 05:05 Micro: Microbiology 12/13/21 20:00 Urine Culture - Final Urine,Clean Catch 12/14/21 08:57 MRSA Culture - Final Nose A&P Assessment and plan (1) Pneumonia: (2) Sepsis: (3) Hyperglycemia: (4) COPD (chronic obstructive pulmonary disease): (5) Coronary artery disease: (6) Diabetes mellitus type 2 in obese: (7) Depression: Plan 76 year old female with past medical history of hypertension diabetes coronary a rtery disease, COPD on 2 Ls home oxygen, depression ,cva, was brought in with chief complaint of generalized weakness, shortness of breath slightly worsened from the baseline, nonproductive cough, back spasm. Patient denied any fever chills, headache nausea vomiting abdominal pain. Patient is not feeling well for the last 1 week or so. 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 Blood culture: NTD Urine culture:NTD MRSA PCR: Negative 2D echo: Normal LV size and systolic function, LVEF 65%, normal RV size and systolic function, X-ray chest: Bilateral pulmonary parenchymal opacities are unchanged. Pulmonary vascular congestion is unchanged. procalcitonin: 1.70 proBNP: 1778 Left breast ultrasound: Soft tissue ulceration with complex fluid collection with a few internal echoes in the area of concern. Correlation for abscess and infection. Ulceration with fluid collection measures 1.8 x 0.9 x 1.3 CM. We will keep her on vancomycin & Zosyn Continue left breast wound dressing We will hold antihypertensive medications Continue Lantus sliding's insulin, diabetic diet Continue aspirin statin Continue DuoNebs, supplemental oxygen as needed Surgery saw patient for concerning findings on left breast ultrasound. Continue with current wound care dressing Lasix 40 IV daily Monitor intake output charting K>4,MG>2 weeks. DVT prophylaxis on Lovenox Attestations Medical Necessity Statement*: Patient is in hospital for management of pneumonia. Coding Level of Care Code Acute Device Repair Technician for [facility] Fwd Diagnoses Pneumonia J18.9 Sepsis A41.9 Hyperglycemia R73.9 COPD (chronic obstructive pulmonary disease) J44.9 Coronary artery disease I25.10 Diabetes mellitus type 2 in obese E11.69; E66.9 Depression F32.9
[2021-12-16 14:38] LABS: Glucose Point of Care 398 mg/dL (70-110)
--- NOTE | 2021-12-16 15:06 | PC.NURSE ---
pt has refused multiple attempts by nurse and staff to sit up
[2021-12-16 16:46] LABS: Glucose Point of Care 374 mg/dL (70-110)
[2021-12-16] MEDS: atorvastatin 40 mg Tablet PO (17:08)
[2021-12-16] MEDS: enoxaparin 40 mg/0.4 mL Syringe SUBCUT (17:08)
[2021-12-16] MEDS: insulin glargine 100 units/1 mL 30 UNIT SUBCUT (18:02)
[2021-12-16 21:21] LABS: Glucose Point of Care 188 mg/dL (70-110)
[2021-12-16] MEDS: silvasorb gel 44.4 mL 1 APPLIC TOPICAL (21:53)
[2021-12-17] VITALS (16 sets, daily range): BP systolic 105–124; BP diastolic 61–74; PULSE 62–89; RESP 16–27; TEMP 36.6–36.9; O2SAT 90–99
[2021-12-17] MEDS: TRAMadol 50 mg Tablet PO (01:21)
[2021-12-17 05:37] LABS: Basophils % 0.3 %; Eosinophils # 0.1 10^3/uL (0.0-0.8); Eosinophils % 1.2 %; Hematocrit 38.8 % (37.0-47.0); Hemoglobin 11.8 g/dL (11.5-15.3); Lymphocytes % 10.8 %; Mean Corpuscular HGB Conc 30.4 g/dL (30.0-36.0); Mean Corpuscular Hemoglobin 28.1 pg (28.0-34.0); Mean Corpuscular Volume 92.4 fl (81-99); Mean Platelet Volume 9.3 fL (7.4-10.4); Monocytes # 0.9 10^3/uL (0.2-0.9); Monocytes % 9.3 %; Neutrophils # 6.25 10^3/uL (1.8-7.7); Nucleated Red Blood Cells % 0 %; Platelet Count 350 10^3/cmm (130-400); Red Cell Distribution Width 14.9 % (12.1-15.1); White Blood Count 9.5 10^3/uL (4.0-10.0)
[2021-12-17 05:53] LABS: Anion Gap 10.4 (5-19); Blood Urea Nitrogen 20 mg/dL (8-23); Calcium 8.7 mg/dL (8.5-10.5); Carbon Dioxide 37 mmol/L (22-29); Chloride 89 mmol/L (98-107); Glucose 122 mg/dL (65-115); Osmolality Calculated 280 mOsm/kg (285-295); Potassium 3.4 mmol/L (3.5-5.1); Sodium 133 mmol/L (136-145)
[2021-12-17 05:59] LABS: Creatinine Clr Calc Pharmacy 37.4273
[2021-12-17 06:02] LABS: Glucose Point of Care 130 mg/dL (70-110)
[2021-12-17 06:26] LABS: Neutrophils % 78.4 %
[2021-12-17 06:27] LABS: Slide Review Slide Review Perform
[2021-12-17] MEDS: piperacillin-tazobactam 3.375 GM in sodium chloride 0.9% (plus) 50 ML IV ×3 (06:28→22:07)
[2021-12-17] MEDS: insulin glargine 100 units/1 mL 20 UNIT SUBCUT (06:28)
[2021-12-17] MEDS: acetylcysteine 200 mg/mL SDV 4 mL 100 MG INHALATION ×4 (08:05→20:24)
[2021-12-17] MEDS: ipratropium-albuterol 3 mL Neb INHALATION ×4 (08:06→20:24)
[2021-12-17] MEDS: citalopram 20 mg Tablet 10 MG PO (09:47)
[2021-12-17] MEDS: FUROsemide 10 mg/mL SDV 4mL 40 MG IVP (09:48)
[2021-12-17] MEDS: guaiFENesin 600 mg Tablet PO ×2 (09:48→17:16)
[2021-12-17] MEDS: aspirin 81 mg EC Tablet PO (09:48)
[2021-12-17] MEDS: pantoprazole DR 40 mg Tablet PO ×2 (09:49→17:16)
--- NOTE | 2021-12-17 11:02 | PC.SOCIAL ---
IMM update IMM updated with patient. Verbalized an understanding. Copy PG 2 provided. Initialled, dated, timed, and placed in chart.
[2021-12-17] MEDS: vancomycin 1,000 MG in sodium chloride 0.9% 250 ML 250 MG IV (11:31)
[2021-12-17] MEDS: potassium chloride ER 20 mEq Tablet 40 MEQ PO (11:31)
[2021-12-17 11:42] LABS: Glucose Point of Care 399 mg/dL (70-110)
[2021-12-17] MEDS: insulin lispro 100 unit/1 mL SUBCUT ×3 (14:39→20:55)
[2021-12-17 16:52] LABS: Glucose Point of Care 444 mg/dL (70-110)
[2021-12-17] MEDS: enoxaparin 40 mg/0.4 mL Syringe SUBCUT (17:16)
[2021-12-17] MEDS: atorvastatin 40 mg Tablet PO (17:16)
[2021-12-17] MEDS: insulin lispro 100 unit/1 mL 10 UNIT SUBCUT (17:28)
--- NOTE | 2021-12-17 17:29 | PM.PN ---
Subjective Subjective: Patient was seen and examined this morning SOB has improved, no documented urine output in last 24 hrs, supplemental oxygen requirement is going down. sputum gram stain and culture not collected. will do repeat am xray chest. Medications: Medication Review Details: Generic Name Dose Route Start Last Admin Trade Name Freq PRN Reason Stop Dose Admin Acetylcysteine 100 mg 12/15/21 12:00 12/17/21 15:21 Acetylcysteine 2 00 Mg/Ml Sdv 4 Ml INHALATION 100 mg QID.RESPIRATORY S CH Administration Albuterol/Ipratrop ium 3 ml 12/12/21 16:09 12/12/21 16:45 Ipratropium-Albu terol 3 Ml Neb INHALATION 3 ml Q6H PRN Administration SHORTNESS OF UMU TH Albuterol/Ipratrop ium 3 ml 12/12/21 20:00 12/17/21 15:21 Ipratropium-Albu terol 3 Ml Neb INHALATION 3 ml QID.RESPIRATORY S CH Administration Aspirin 81 mg 12/13/21 09:00 12/17/21 09:48 Aspirin 81 Mg Ec Tablet PO 81 mg DAILY KARI Administration Atorvastatin Calci um 40 mg 12/12/21 18:00 12/17/21 17:16 Atorvastatin 40 Mg Tablet PO 40 mg QPM KARI Administration Citalopram Hydrobr omide 10 mg 12/13/21 09:00 12/17/21 09:47 Citalopram 20 Mg Tablet PO 10 mg DAILY KARI Administration Enoxaparin Sodium 40 mg 12/12/21 17:00 12/17/21 17:16 Enoxaparin 40 Mg /0.4 Ml Syringe SUBCUT 40 mg Q24H KARI Administration Furosemide 40 mg 12/15/21 08:15 12/17/21 09:48 Furosemide 10 Mg /Ml Sdv 4ml IVP 40 mg Q24H KARI Administration Guaifenesin 600 mg 12/15/21 09:40 12/17/21 17:16 Guaifenesin 600 Mg Tablet PO 600 mg BID KARI Administration Piperacillin Sod/T azobactam 50 mls @ 12.5 mls /hr 12/12/21 17:00 12/17/21 14:53 Sod 3.375 gm/ So dium Chloride IV 12.5 mls/hr Q8H KARI Administration Protocol Insulin Glargine 30 unit 12/12/21 18:00 12/16/21 18:02 Insulin Glargine 100 Units/1 Ml SUBCUT 30 unit QPM KARI Administration Insulin Glargine 20 unit 12/17/21 06:00 12/17/21 06:28 Insulin Glargine 100 Units/1 Ml SUBCUT 20 unit QAM KARI Administration Insulin Human Lisp ro 0 unit 12/13/21 18:00 12/17/21 14:39 Insulin Lispro 1 00 Unit/1 Ml SUBCUT 14 unit WM&BEDTIME KARI Administration Protocol Methocarbamol 500 mg 12/12/21 18:00 12/13/21 20:23 Methocarbamol 50 0 Mg Tablet PO 500 mg QID PRN Administration Muscle Spasms Pantoprazole Sodiu m 40 mg 12/12/21 18:00 12/17/21 17:[address] 40 Mg Tablet PO 40 mg BID KARI Administration Potassium Chloride 40 meq 12/17/21 11:00 12/17/21 11:31 Potassium Chlori de Er 20 Meq Table t PO 40 meq DAILY KARI Administration Silver Sulfadiazin e 1 applic 12/14/21 09:00 12/16/21 21:53 Silvasorb Gel 44 .4 Ml TOPICAL 1 applic Q24H KARI Administration Tramadol HCl 50 mg 12/14/21 09:53 12/17/21 01:21 Tramadol 50 Mg T ablet PO 50 mg TID PRN Administration MODERATE PAIN Vitals/I&O/Wt Last Vital Signs Temp 98.0 F 12/17/21 15:22 Pulse 85 12/17/21 15:27 Resp 20 H 12/17/21 15:23 BP 105/65 12/17/21 15:22 Pulse Ox 90 12/17/21 15:23 O2 Del Method 12/17/21 15:23 O2 Flow Rate 6 12/17/21 15:23 FiO2 50 12/16/21 03:38 12/17/21 12/17/21 12/17/21 06:59 14:59 22:59 Intake Total 290 / 1310 420 / 420 Output Total 200 / 200 Balance 290 / 760 220 / 220 Physical Exam Const: COMMON NORMALS: patient oriented x3 HENMT: COMMON NORMALS: normocephalic and atraumatic HEAD & SCALP: normocephalic and atraumatic Chest: CHEST: Yes Symmetrical chest wall rise OTHER: lt breast wound clean, packed Resp: COMMON NORMALS: clear to auscultation bilaterally EFFORT & INSPECTION: Yes symmetric chest movement AUSCULTATION: clear to auscultation bilaterally OTHER: Diminished air entry bilaterally Cardio: COMMON NORMALS: regular rate, regular rhythm, S1 normal heart sound present, S2 normal heart sound present, No gallops present (Cardio), No murmurs present (Cardio), No rub (Cardio) and Peripheral pulses 2+ throughout RATE: regular rate RHYTHM: regular rhythm HEART SOUNDS: S1 normal heart sound present and S2 normal heart sound present PERIPHERAL PULSES: Peripheral pulses 2+ throughout GI: COMMON NORMALS: Normal to inspection, nondistended, normoactive bowel sounds present, Soft to palpation, non-tender, No hepatosplenomegaly present and no masses AUSCULTATION: Yes normoactive bowel sounds PALPATION: Yes Soft to palpation and Yes No hepatosplenomegaly present RECTAL EXAM: deferred Extremity: COMMON NORMALS: no clubbing, cyanosis or edema and no pedal edema Neuro: COMMON NORMALS: patient oriented x3 Data : 12/17/21 04:54 12/17/21 04:54 Micro: Microbiology 12/12/21 12:22 Blood Culture - Final Blood NO GROWTH AFTER 5 DAYS 12/12/21 12:22 Blood Culture - Final Blood NO GROWTH AFTER 5 DAYS 12/13/21 20:00 Urine Culture - Final Urine,Clean Catch A&P Assessment and plan (1) Pneumonia: (2) Sepsis: (3) Hyperglycemia: (4) COPD (chronic obstructive pulmonary disease): (5) Coronary artery disease: (6) Diabetes mellitus type 2 in obese: (7) Depression: Plan 76 year old female with past medical history of hypertension diabetes coronary artery disease, COPD on 2 Ls home oxygen, depression ,cva, was brought in with chief complaint of generalized weakness, shortness of breath slightly worsened from the baseline, nonproductive cough, back spasm. Patient denied any fever chills, headache nausea vomiting abdominal pain. Patient is not feeling well for the last 1 week or so. 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 Blood culture: NTD Urine culture:NTD MRSA PCR: Negative 2D echo: Normal LV size and systolic function, LVEF 65%, normal RV size and systolic function, X-ray chest: Bilateral pulmonary parenchymal opacities are unchanged. Pulmonary vascular congestion is unchanged. procalcitonin: 1.70 proBNP: 1778 Left breast ultrasound: Soft tissue ulceration with complex fluid collection with a few internal echoes in the area of concern. Correlation for abscess and infection. Ulceration with fluid collection measures 1.8 x 0.9 x 1.3 CM. We will keep her on vancomycin & Zosyn Continue left breast wound dressing We will hold antihypertensive medications Continue Lantus sliding's insulin, diabetic diet Continue aspirin statin Continue DuoNebs, supplemental oxygen as needed Surgery saw patient for concerning findings on left breast ultrasound. Continue with current wound care dressing Lasix 40 IV daily Monitor intake output charting K>4,MG>2 weeks. Patient will need SNF placement. DVT prophylaxis on Lovenox Attestations Medical Necessity Statement*: Patient needs to be in hospital for the management of sepsis. Coding Level of Care Code Acute Director Of Collections And Archives for [facility] Fwd Diagnoses Pneumonia J18.9 Sepsis A41.9 Hyperglycemia R73.9 COPD (chronic obstructive pulmonary disease) J44.9 Coronary artery disease I25.10 Diabetes mellitus type 2 in obese E11.69; E66.9 Depression F32.9
[2021-12-17] MEDS: insulin glargine 100 units/1 mL 30 UNIT SUBCUT (18:00)
[2021-12-17] MEDS: silvasorb gel 44.4 mL 1 APPLIC TOPICAL (20:56)
[2021-12-18] VITALS (18 sets, daily range): BP systolic 94–132; BP diastolic 54–88; PULSE 61–85; RESP 16–27; TEMP 36.4–36.7; O2SAT 90–95
--- NOTE | 2021-12-18 00:12 | PC.NURSE ---
O2 SAT Pt was noted on pulse ox to have sats in 70's. Tried increasing HFNC without increase in sat noted. Placed back on BIPAP and RT notified.
--- NOTE | 2021-12-18 05:00 | XRR_ITS ---
PROCEDURE INFORMATION: Exam: XR Chest Exam date and time: 12/18/2021 4:48 AM Age: 76 years old Clinical indication: Shortness of breath; Additional info: SOB TECHNIQUE: Imaging protocol: Radiologic exam of the chest. Views: 1 view. COMPARISON: CR (CHEST, ) 12/14/2021 1:23 AM FINDINGS: Lungs: There is prominence of the central pulmonary vasculature, findings that could represent pulmonary hypertension. There are some strandy opacities present in the left lung base that likely represents atelectasis. Increased interstitial opacities are also noted in the lower hemithoraces possibly representing superimposed interstitial pneumonitis. Pulmonary edema could have this appearance. There is a background of emphysema and pulmonary fibrosis. Pleural spaces: Unremarkable. No pleural effusion. No pneumothorax. Heart/Mediastinum: Unremarkable. No cardiomegaly. Bones/joints: Unremarkable. Intraperitoneal space: Patchy opacities persist in the right lower hemithorax peripherally. XR/XR chest 1V portable [id number] IMPRESSION: 1. Prominent central pulmonary vasculature could represent pulmonary hypertension. 2. There are increased interstitial opacity seen in the mid and lower hemithoraces, findings that could represent pulmonary edema although a superimposed interstitial pneumonitis cannot be excluded. 3. Patchy opacity seen in the right lower hemithorax likely represents right lower lobe infiltrates and pneumonia. 4. Strandy opacities in the left lung base most probably represents atelectasis.
[2021-12-18] MEDS: piperacillin-tazobactam 3.375 GM in sodium chloride 0.9% (plus) 50 ML IV ×3 (05:19→21:07)
[2021-12-18 05:47] LABS: Basophils % 0.3 %; Eosinophils # 0.1 10^3/uL (0.0-0.8); Eosinophils % 1.2 %; Hematocrit 36.9 % (37.0-47.0); Hemoglobin 11.6 g/dL (11.5-15.3); Lymphocytes # 1.1 10^3/uL (0.8-4.8); Lymphocytes % 11.3 %; Mean Corpuscular HGB Conc 31.4 g/dL (30.0-36.0); Mean Corpuscular Hemoglobin 28.4 pg (28.0-34.0); Mean Corpuscular Volume 90.4 fl (81-99); Mean Platelet Volume 9.2 fL (7.4-10.4); Monocytes # 0.9 10^3/uL (0.2-0.9); Monocytes % 8.8 %; Neutrophils # 6.84 10^3/uL (1.8-7.7); Neutrophils % 67.5 %; Nucleated Red Blood Cells % 0 %; Platelet Count 381 10^3/cmm (130-400); Red Blood Count 4.08 10^6/uL (4.1-5.3); Red Cell Distribution Width 14.7 % (12.1-15.1); White Blood Count 10.1 10^3/uL (4.0-10.0)
[2021-12-18] MEDS: insulin glargine 100 units/1 mL 20 UNIT SUBCUT (06:02)
[2021-12-18 06:03] LABS: Anion Gap 6.4 (5-19); Blood Urea Nitrogen 27 mg/dL (8-23); Calcium 9.6 mg/dL (8.5-10.5); Chloride 83 mmol/L (98-107); Glucose 141 mg/dL (65-115); Osmolality Calculated 273 mOsm/kg (285-295); Potassium 4.4 mmol/L (3.5-5.1); Sodium 128 mmol/L (136-145)
[2021-12-18 06:07] LABS: Carbon Dioxide 43 mmol/L (22-29)
[2021-12-18 06:22] LABS: Slide Review Slide Review Perform
[2021-12-18] MEDS: ipratropium-albuterol 3 mL Neb INHALATION ×4 (08:02→20:42)
[2021-12-18] MEDS: acetylcysteine 200 mg/mL SDV 4 mL 100 MG INHALATION ×3 (08:02→15:09)
[2021-12-18] MEDS: insulin lispro 100 unit/1 mL SUBCUT ×4 (08:44→21:08)
[2021-12-18] MEDS: guaiFENesin 600 mg Tablet PO ×2 (08:45→17:44)
[2021-12-18] MEDS: potassium chloride ER 20 mEq Tablet 40 MEQ PO (08:45)
[2021-12-18] MEDS: citalopram 20 mg Tablet 10 MG PO (08:45)
[2021-12-18] MEDS: pantoprazole DR 40 mg Tablet PO ×2 (08:45→17:44)
[2021-12-18] MEDS: aspirin 81 mg EC Tablet PO (08:45)
[2021-12-18] MEDS: TRAMadol 50 mg Tablet PO (08:46)
[2021-12-18 11:29] LABS: Glucose Point of Care 248 mg/dL (70-110)
[2021-12-18] MEDS: silvasorb gel 44.4 mL 1 APPLIC TOPICAL (13:06)
--- NOTE | 2021-12-18 13:12 | PM.PN ---
Subjective Subjective: Patient was seen and examined this morning still requiring 6-8 Ls oxygen trough NC, will hold off on lasix today as the patient is getting slightly dry, is also hyponatremic, with contraction alkalosis setting in.She will need dimox. Medications: Medication Review Details: Generic Name Dose Route Start Last Admin Trade Name Freq PRN Reason Stop Dose Admin Acetylcysteine 100 mg 12/15/21 12:00 12/18/21 11:15 Acetylcysteine 2 00 Mg/Ml Sdv 4 Ml INHALATION 100 mg QID.RESPIRATORY S CH Administration Albuterol/Ipratrop ium 3 ml 12/12/21 16:09 12/12/21 16:45 Ipratropium-Albu terol 3 Ml Neb INHALATION 3 ml Q6H PRN Administration SHORTNESS OF UMU TH Albuterol/Ipratrop ium 3 ml 12/12/21 20:00 12/18/21 11:16 Ipratropium-Albu terol 3 Ml Neb INHALATION 3 ml QID.RESPIRATORY S CH Administration Aspirin 81 mg 12/13/21 09:00 12/18/21 08:45 Aspirin 81 Mg Ec Tablet PO 81 mg DAILY KARI Administration Atorvastatin Calci um 40 mg 12/12/21 18:00 12/17/21 17:16 Atorvastatin 40 Mg Tablet PO 40 mg QPM KARI Administration Citalopram Hydrobr omide 10 mg 12/13/21 09:00 12/18/21 08:45 Citalopram 20 Mg Tablet PO 10 mg DAILY KARI Administration Enoxaparin Sodium 40 mg 12/12/21 17:00 12/17/21 17:16 Enoxaparin 40 Mg /0.4 Ml Syringe SUBCUT 40 mg Q24H KARI Administration Guaifenesin 600 mg 12/15/21 09:40 12/18/21 08:45 Guaifenesin 600 Mg Tablet PO 600 mg BID KARI Administration Piperacillin Sod/T azobactam 50 mls @ 12.5 mls /hr 12/12/21 17:00 12/18/21 09:19 Sod 3.375 gm/ So dium Chloride IV Infused Q8H KARI Infusion Protocol Insulin Glargine 30 unit 12/12/21 18:00 12/17/21 18:00 Insulin Glargine 100 Units/1 Ml SUBCUT 30 unit QPM KARI Administration Insulin Glargine 20 unit 12/17/21 06:00 12/18/21 06:02 Insulin Glargine 100 Units/1 Ml SUBCUT 20 unit QAM KARI Administration Insulin Human Lisp ro 0 unit 12/13/21 18:00 12/18/21 13:05 Insulin Lispro 1 00 Unit/1 Ml SUBCUT 8 unit WM&BEDTIME KARI Administration Protocol Methocarbamol 500 mg 12/12/21 18:00 12/13/21 20:23 Methocarbamol 50 0 Mg Tablet PO 500 mg QID PRN Administration Muscle Spasms Pantoprazole Sodiu m 40 mg 12/12/21 18:00 12/18/21 08:[address] 40 Mg Tablet PO 40 mg BID KARI Administration Potassium Chloride 40 meq 12/17/21 11:00 12/18/21 08:45 Potassium Chlori de Er 20 Meq Table t PO 40 meq DAILY KARI Administration Silver Sulfadiazin e 1 applic 12/14/21 09:00 12/18/21 13:06 Silvasorb Gel 44 .4 Ml TOPICAL 1 applic Q24H KARI Administration Vitals/I&O/Wt Last Vital Signs Temp 97.9 F 12/18/21 11:33 Pulse 79 12/18/21 11:33 Resp 17 12/18/21 11:33 BP 130/72 12/18/21 11:33 Pulse Ox 92 12/18/21 11:33 O2 Del Method 12/18/21 11:33 O2 Flow Rate 6 12/18/21 11:33 FiO2 40 12/18/21 07:33 12/17/21 12/18/21 12/18/21 22:59 06:59 14:59 Intake Total 530 / 950 50 / 1000 50 / 50 Output Total 925 / 1125 475 / 1600 Balance -395 / -175 -425 / -600 50 / 50 Physical Exam Const: COMMON NORMALS: patient oriented x3 HENMT: COMMON NORMALS: normocephalic and atraumatic HEAD & SCALP: normocephalic and atraumatic Chest: CHEST: Yes Symmetrical chest wall rise OTHER: lt breast wound clean, packed Resp: COMMON NORMALS: clear to auscultation bilaterally EFFORT & INSPECTION: Yes symmetric chest movement AUSCULTATION: clear to auscultation bilaterally OTHER: Diminished air entry bilaterally Cardio: COMMON NORMALS: regular rate, regular rhythm, S1 normal heart sound present, S2 normal heart sound present, No gallops present (Cardio), No murmurs present (Cardio), No rub (Cardio) and Peripheral pulses 2+ throughout RATE: regular rate RHYTHM: regular rhythm HEART SOUNDS: S1 normal heart sound present and S2 normal heart sound present PERIPHERAL PULSES: Peripheral pulses 2+ throughout GI: COMMON NORMALS: Normal to inspection, nondistended, normoactive bowel sounds present, Soft to palpation, non-tender, No hepatosplenomegaly present and no masses AUSCULTATION: Yes normoactive bowel sounds PALPATION: Yes Soft to palpation and Yes No hepatosplenomegaly present RECTAL EXAM: deferred Extremity: COMMON NORMALS: no clubbing, cyanosis or edema and no pedal edema Neuro: COMMON NORMALS: patient oriented x3 Data : 12/18/21 05:06 12/18/21 05:06 Micro: Microbiology 12/12/21 12:22 Blood Culture - Final Blood NO GROWTH AFTER 5 DAYS 12/12/21 12:22 Blood Culture - Final Blood NO GROWTH AFTER 5 DAYS A&P Assessment and plan (1) Pneumonia: (2) Sepsis: (3) Hyperglycemia: (4) COPD (chronic obstructive pulmonary disease): (5) Coronary artery disease: (6) Diabetes mellitus type 2 in obese: (7) Depression: Plan 76 year old female with past medical history of hypertension diabetes coronary artery disease, COPD on 2 Ls home oxygen, depression ,cva, was brought in with chief complaint of generalized weakness, shortness of breath slightly worsened from the baseline, nonproductive cough, back spasm. Patient denied any fever chills, headache nausea vomiting abdominal pain. Patient is not feeling well for the last 1 week or so. 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 Blood culture: NTD Urine culture:NTD MRSA PCR: Negative 2D echo: Normal LV size and systolic function, LVEF 65%, normal RV size and systolic function, X-ray chest: Bilateral pulmonary parenchymal opacities are unchanged. Pulmonary vascular congestion is unchanged. procalcitonin: 1.70 proBNP: 1778 Left breast ultrasound: Soft tissue ulceration with complex fluid collection with a few internal echoes in the area of concern. Correlation for abscess and infection. Ulceration with fluid collection measures 1.8 x 0.9 x 1.3 CM. We will keep her on vancomycin & Zosyn Continue left breast wound dressing We will hold antihypertensive medications Continue Lantus sliding's insulin, diabetic diet Continue aspirin statin Continue DuoNebs, supplemental oxygen as needed Surgery saw patient for concerning findings on left breast ultrasound. Continue with current wound care dressing Lasix 40 IV daily Monitor intake output charting K>4,MG>2 weeks. Patient will need SNF placement. DVT prophylaxis on Lovenox Attestations Medical Necessity Statement*: Patient needs to be in hospital for the management of sepsis. Coding Level of Care Code Acute Certified Hand Therapist for [facility] Fwd Exam Detailed Diagnoses Pneumonia J18.9 Sepsis A41.9 Hyperglycemia R73.9 COPD (chronic obstructive pulmonary disease) J44.9 Coronary artery disease I25.10 Diabetes mellitus type 2 in obese E11.69; E66.9 Depression F32.9
[2021-12-18] MEDS: acetaZOLAMIDE 250 mg Tablet PO (14:52)
[2021-12-18 16:34] LABS: Glucose Point of Care 440 mg/dL (70-110)
[2021-12-18] MEDS: enoxaparin 40 mg/0.4 mL Syringe SUBCUT (17:36)
[2021-12-18] MEDS: insulin glargine 100 units/1 mL 30 UNIT SUBCUT (17:44)
[2021-12-18] MEDS: atorvastatin 40 mg Tablet PO (17:44)
--- NOTE | 2021-12-18 19:10 | PC.NURSE ---
Report given to Naye CALZADA
[2021-12-18 21:06] LABS: Glucose Point of Care 285 mg/dL (70-110)
[2021-12-18] MEDS: acetaminophen 325 mg Tablet 650 MG PO (22:28)
[2021-12-19] VITALS (15 sets, daily range): BP systolic 99–111; BP diastolic 57–69; PULSE 63–80; RESP 13–25; TEMP 36.4–36.8; O2SAT 90–98
[2021-12-19] MEDS: piperacillin-tazobactam 3.375 GM in sodium chloride 0.9% (plus) 50 ML IV ×2 (05:41→14:33)
[2021-12-19] MEDS: acetaminophen 325 mg Tablet 650 MG PO (06:00)
[2021-12-19] MEDS: insulin glargine 100 units/1 mL 20 UNIT SUBCUT (06:01)
[2021-12-19 06:26] LABS: Glucose Point of Care 173 mg/dL (70-110)
--- NOTE | 2021-12-19 06:35 | PC.NURSE ---
SHIFT SUMMARY Has rested for intervals. Up to BSC numerous times. Urinates and also incont in brief. Says this is nothing new for her. Has been able to be only on HFNC tonight at 6l and sat has stayed between 90-96% per continuous pulse oximetry. Sat has dropped only into upper 80's with activity. Medicated X2 with po Tylenol.
[2021-12-19] MEDS: ipratropium-albuterol 3 mL Neb INHALATION ×4 (07:39→21:13)
[2021-12-19 08:40] LABS: Basophils # 0.1 10^3/uL (0.0-0.1); Eosinophils # 0.2 10^3/uL (0.0-0.8); Eosinophils % 2.2 %; Hematocrit 38.4 % (37.0-47.0); Hemoglobin 11.7 g/dL (11.5-15.3); Lymphocytes % 13.9 %; Mean Corpuscular HGB Conc 30.5 g/dL (30.0-36.0); Mean Corpuscular Hemoglobin 28.2 pg (28.0-34.0); Mean Corpuscular Volume 92.5 fl (81-99); Mean Platelet Volume 9.4 fL (7.4-10.4); Monocytes # 0.7 10^3/uL (0.2-0.9); Neutrophils # 4.24 10^3/uL (1.8-7.7); Nucleated Red Blood Cells % 0 %; Platelet Count 343 10^3/cmm (130-400); Red Blood Count 4.15 10^6/uL (4.1-5.3); White Blood Count 6.8 10^3/uL (4.0-10.0)
[2021-12-19] MEDS: pantoprazole DR 40 mg Tablet PO ×2 (08:48→17:48)
[2021-12-19] MEDS: citalopram 20 mg Tablet 10 MG PO (08:48)
[2021-12-19] MEDS: aspirin 81 mg EC Tablet PO (08:48)
[2021-12-19] MEDS: potassium chloride ER 20 mEq Tablet 40 MEQ PO (08:48)
[2021-12-19] MEDS: guaiFENesin 600 mg Tablet PO ×2 (08:49→17:48)
[2021-12-19] MEDS: acetaZOLAMIDE 250 mg Tablet 500 MG PO (08:49)
[2021-12-19] MEDS: insulin lispro 100 unit/1 mL SUBCUT ×4 (08:57→21:59)
[2021-12-19 08:58] LABS: Calcium 9.5 mg/dL (8.5-10.5)
[2021-12-19 09:13] LABS: Neutrophils % 72.7 %; Slide Review Slide Review Perform
[2021-12-19 09:33] LABS: Anion Gap 8.1 (5-19); Blood Urea Nitrogen 29 mg/dL (8-23); Carbon Dioxide 36 mmol/L (22-29); Chloride 91 mmol/L (98-107); Glucose 184 mg/dL (65-115); Osmolality Calculated 281 mOsm/kg (285-295); Potassium 5.1 mmol/L (3.5-5.1); Sodium 130 mmol/L (136-145)
--- NOTE | 2021-12-19 11:19 | FL_ITS ---
WS: [id number] Exam: FL barium swallow modifd [id number] Date/Time of Exam: 12/19/2021 12:07 PM Reason For Exam: Oropharyngeal dysphagia Fluoroscopy time: 2min [id number] minutes # of spot films: 0 Modified barium swallow was performed in conjunction with the speech therapy service. The patient tolerated thin liquid, nectar consistency, pudding consistency and solid barium mixture f oodstuffs without aspiration or penetration into the laryngeal inlet. Swallowing function at the leve l of the oropharynx was grossly normal. The patient ingested a barium tablet without difficulty or co mplication. FL/FL barium swallow modifd [id number] IMPRESSION: 1. Unremarkable modified barium swallow. No sign of aspiration or penetration. A separate report of recommendations and findings will follow from the speech t herapy service.
[2021-12-19] MEDS: silvasorb gel 44.4 mL 1 APPLIC TOPICAL (11:34)
[2021-12-19 11:47] LABS: Glucose Point of Care 331 mg/dL (70-110)
[2021-12-19 12:21] LABS: NT Pro B Type Natriuretic Pept 508 pg/mL (0-125); Thyroid Stimulating Hormone 2.17 uIU/mL (0.27-4.20); Vitamin B12 1211 pg/mL (232-1245)
[2021-12-19 12:31] LABS: Folate Level 10.8 ng/mL (4.8-37.3)
[2021-12-19 12:32] LABS: Iron 36 ug/dL (37-145); Percent Saturation 17.9 % (20-50); Total Iron Binding Capacity 201 mcg/dl; Unsaturated Iron Binding 165 ug/dL (112-347)
[2021-12-19 15:11] LABS: D Dimer 3.83 ug/mIFEU (0-0.59)
--- NOTE | 2021-12-19 16:07 | P.PN_ITS ---
Subjective Subjective: Hospital course, labs appreciated. On examination patient sitting at bedside. Working with chest vest. Saturating more than 95% on 4 L. Has remained hemodynamically stable and afebrile. Denies any new complaints. Vitals/I&O/Wt Last Vital Signs Temp 97.6 F 12/19/21 04:09 Pulse 76 12/19/21 15:26 Resp 16 12/19/21 15:26 BP 111/69 12/19/21 08:00 Pulse Ox 98 12/19/21 15:26 O2 Del Method 12/19/21 15:26 O2 Flow Rate 4 12/19/21 15:26 FiO2 40 12/18/21 07:33 12/19/21 12/19/21 12/19/21 06:59 14:59 22:59 Intake Total 650 / 1200 650 / 650 Output Total 875 / 1900 300 / 300 Balance -225 / -700 350 / 350 Physical Exam Const: COMMON NORMALS: patient oriented x3 HENMT: COMMON NORMALS: normocephalic and atraumatic HEAD & SCALP: normocephalic and atraumatic Chest: CHEST: Yes Symmetrical chest wall rise OTHER: lt breast wound clean, packed Resp: COMMON NORMALS: clear to auscultation bilaterally EFFORT & INSPECTION: Yes symmetric chest movement AUSCULTATION: clear to auscultation bilaterally OTHER: Diminished air entry bilaterally Cardio: COMMON NORMALS: regular rate, regular rhythm, S1 normal heart sound present, S2 normal heart sound present, No gallops present (Cardio), No murmurs present (Cardio), No rub (Cardio) and Peripheral pulses 2+ throughout RATE: regular rate RHYTHM: regular rhythm HEART SOUNDS: S1 normal heart sound present and S2 normal heart sound present PERIPHERAL PULSES: Peripheral pulses 2+ throughout GI: COMMON NORMALS: Normal to inspection, nondistended, normoactive bowel sounds present, Soft to palpation, non-tender, No hepatosplenomegaly present and no masses AUSCULTATION: Yes normoactive bowel sounds PALPATION: Yes Soft to palpation and Yes No hepatosplenomegaly present RECTAL EXAM: deferred Extremity: COMMON NORMALS: no clubbing, cyanosis or edema and no pedal edema Neuro: COMMON NORMALS: patient oriented x3 Data : 12/19/21 08:24 12/19/21 08:24 A&P Assessment and plan (1) Hypoxia: Most likely secondary to pneumonia leading to COPD exacerbation and diastolic heart failure. Oxygen supplementation keeping saturation over 92%. Chronically on 2 L of oxygen supplementation. Check procalcitonin, proBNP, D-dimer. If D-dimer is elevated we will plan for lower limb Dopplers. Patient's creatinine has been elevated since admission. Currently stable. A cardiogram done today admission shows an EF of 65%, normal diastolic function, RVSP of 39 mmHg. Hold off on any further diuresis. (2) Pneumonia: Sputum culture pending. Continue Zosyn to finish a 7-day course of antibiotics. Chest vest, incentive spirometry. DuoNebs every 6 hour, budesonide twice daily. Hold off any further Mucomyst. Mucinex 600 mg p.o. twice daily. (3) Hyperglycemia: In setting of type 2 diabetes mellitus. (4) Diabetes mellitus type 2 in obese: Check A1c. Increase dose of Lantus to 35 units twice daily. Continue insulin sliding scale high-dose protocol. Continue with carb consistent cardiac diet. (5) COPD (chronic obstructive pulmonary disease): As above. Chronically on 2 L oxygen supplementation. (6) CKD (chronic kidney disease) stage 3, GFR 30-59 ml/min: Baseline creatinine recently from 1.1-1.2. Creatinine currently at baseline. Hyponatremia resolving. Hold off on any further diuresis for now. (7) Coronary artery disease: No active chest pain. Continue with home dose of aspirin, statin. (8) Sepsis: Resolved. (9) Depression: Continue with home dose of Celexa. (10) Open wound of left breast: Seen by surgery during admission. No active procedure required. Plan Analgesia: Tylenol as needed Glycemic control: Check A1c, Lantus 35 units twice daily, high-dose insulin protocol Nutrition: Carb consistent diet CODE STATUS: Full code PUD prophylaxis: Protonix 40 mg twice daily DVT prophylaxis: Lovenox for DVT prophylaxis Discharge planning: Possible discharge to SNF within next 24 to 48 hours once medically cleared. [facility]. This documentation was created by [employer] avian keeper software. Every effort was made to ensure accuracy of avian keeper. Any obvious errors or omissions should be clarified with the author of the document. Attestations Medical Necessity Statement*: Requires further hospitalization for management of hypoxia secondary to COPD exacerbation from pneumonia, hyperglycemia Time Spent in Patient Care: Greater than 35 minutes Coding Level of Care Code Acute Headend Technician for Chg Fwd Diagnoses Hypoxia R09.02 Pneumonia J18.9 Hyperglycemia R73.9 Diabetes mellitus type 2 in obese E11.69; E66.9 COPD (chronic obstructive pulmonary disease) J44.9 CKD (chronic kidney disease) stage 3, GFR 30-59 ml/min N18.30 Coronary artery disease I25.10 Sepsis A41.9 Depression F32.9 Open wound of left breast S21.002A
[2021-12-19] MEDS: sodium chloride 3.5% neb 4 mL Neb INHALATION (17:12)
[2021-12-19 17:43] LABS: Glucose Point of Care 295 mg/dL (70-110)
[2021-12-19] MEDS: enoxaparin 40 mg/0.4 mL Syringe SUBCUT (17:47)
[2021-12-19] MEDS: atorvastatin 40 mg Tablet PO (17:48)
[2021-12-19] MEDS: ferrous gluconate 324 mg Tablet PO (17:48)
[2021-12-19] MEDS: insulin glargine 100 units/1 mL 35 UNIT SUBCUT (17:59)
[2021-12-19] MEDS: budesonide 0.5 mg/2 mL Neb INHALATION (21:13)
[2021-12-19 21:28] LABS: Glucose Point of Care 208 mg/dL (70-110)
[2021-12-20] VITALS (15 sets, daily range): BP systolic 96–110; BP diastolic 56–66; PULSE 55–72; RESP 17–23; TEMP 36.5–36.8; O2SAT 88–94
[2021-12-20 05:04] LABS: Hematocrit 37.5 % (37.0-47.0); Hemoglobin 11.4 g/dL (11.5-15.3); Mean Corpuscular HGB Conc 30.4 g/dL (30.0-36.0); Mean Corpuscular Hemoglobin 28.1 pg (28.0-34.0); Mean Corpuscular Volume 92.4 fl (81-99); Mean Platelet Volume 9.2 fL (7.4-10.4); Platelet Count 330 10^3/cmm (130-400); Red Blood Count 4.06 10^6/uL (4.1-5.3); Red Cell Distribution Width 15.1 % (12.1-15.1); White Blood Count 6.6 10^3/uL (4.0-10.0)
[2021-12-20 05:13] LABS: Estmated Average Glucose 240
[2021-12-20 05:27] LABS: Alanine Aminotransferase 18 U/L (0-33); Albumin Level 2.2 g/dL (3.5-5.2); Alkaline Phosphatase 165 U/L (35-105); Anion Gap 13.3 (5-19); Aspartate Amino Transferase 19 U/L (0-32); Blood Urea Nitrogen 31 mg/dL (8-23); Calcium 9.2 mg/dL (8.5-10.5); Carbon Dioxide 29 mmol/L (22-29); Chloride 96 mmol/L (98-107); Chol HDL Ratio 3.09 mg/dL (0.0-4.40); Cholesterol 99 mg/dL (0-200); Globulin 4.8 g/dL (1.3-4.6); Glucose 156 mg/dL (65-115); HDL Cholesterol 32 mg/dL (60-100); LDL Cholesterol Calculated 44 mg/dL (50-129); Osmolality Calculated 288 mOsm/kg (285-295); Potassium 4.3 mmol/L (3.5-5.1); Sodium 134 mmol/L (136-145); Total Bilirubin 0.3 mg/dL (0.15-1.2); Triglycerides 114 mg/dL (0-150); VLDL Cholestrol Calculation 23 mg/dL (0-30)
[2021-12-20 05:54] LABS: Absolute Eosinophils 0.1 10^3/cmm (0.0-0.7); Absolute Segmented Neutrophil 4.6 10/cmm (1.6-7.1); Band Neutrophils Absolute 0.3 10^3/cmm (0.0-1.2); Eosinophils 2 %; Lymphocytes 10 %; Lymphocytes Absolute 0.7 10^3/cmm (1.2-3.4); Monocytes Absolute 0.5 10^3/cmm (0.1-0.6); Segmented Neutrophils 69 %; Total Cells Counted 100 (0-100)
[2021-12-20 05:55] LABS: Absolute Neutrophil 4.9 10^3/cmm (1.4-6.5); Giant Platelets 1+; Platelet Estimate Normal (Normal)
[2021-12-20 06:49] LABS: Glucose Point of Care 173 mg/dL (70-110)
[2021-12-20] MEDS: budesonide 0.5 mg/2 mL Neb INHALATION (07:29)
[2021-12-20] MEDS: ipratropium-albuterol 3 mL Neb INHALATION ×3 (07:29→15:35)
[2021-12-20] MEDS: ferrous gluconate 324 mg Tablet PO (09:30)
[2021-12-20] MEDS: citalopram 20 mg Tablet 10 MG PO (09:30)
[2021-12-20] MEDS: aspirin 81 mg EC Tablet PO (09:30)
[2021-12-20] MEDS: guaiFENesin 600 mg Tablet PO (09:30)
[2021-12-20] MEDS: insulin lispro 100 unit/1 mL SUBCUT ×2 (09:31→13:12)
[2021-12-20] MEDS: pantoprazole DR 40 mg Tablet PO (09:31)
[2021-12-20] MEDS: insulin glargine 100 units/1 mL 35 UNIT SUBCUT (09:32)
[2021-12-20] MEDS: potassium chloride ER 20 mEq Tablet 40 MEQ PO (09:44)
[2021-12-20 11:27] LABS: Glucose Point of Care 279 mg/dL (70-110)
--- NOTE | 2021-12-20 12:45 | P.DS_ITS ---
Discharge Providers Date of Admission: 12/12/21 14:44 Date of Discharge: December 20, 2021 Attending Provider at Admission: Samson Maher MD Attending Provider at Discharge: Zeyad Mosley MD Consults: Surgery: Dr. Syed Primary Care Provider: Guy Salazar DO Diagnoses at Discharge Discharge Diagnosis (1) Hypoxia: Status: Acute (2) Pneumonia: Status: Acute (3) Hyperglycemia: Status: Acute (4) Diabetes mellitus type 2 in obese: Status: Acute (5) COPD (chronic obstructive pulmonary disease): Status: Acute Permanent problem details: Chronically uses 2 L per nasal cannula (6) CKD (chronic kidney disease) stage 3, GFR 30-59 ml/min: Status: Acute (7) Coronary artery disease: Status: Acute (8) Sepsis: Status: Acute (9) Depression: Status: Acute (10) Open wound of left breast: Status: Acute Reason for Visit Reason for Visit: Brief History: History as per HPI: Deyanira Gonsales is a 76 year old female with past medical history of hypertension diabetes coronary artery disease, COPD on 2 Ls home oxygen, depression ,cva, was brought in with chief complaint of generalized weakness, shortness of breath slightly worsened from the baseline, nonproductive cough, back spasm. Patient denied any fever chills, headache nausea vomiting abdominal pain. Patient is not feeling well for the last 1 week or so.? Upon arrival in the ER she was worked up for above-mentioned complaint Pertinent imaging studies X-ray chest:?Patchy opacity in right hilum and right lower lobe which may represent acute pneumonia. Pertinent labs: WBC 27, H&H 12/40 plt : 288 , serum sodium 128, serum potassium 4.9, BUN/? serum creatinine 25/1.2 , RBS: 400 , Lactic acid normal COVID PCR negative Hospital Course Hospital Course Patient was admitted to the hospital further evaluation and management of sepsis secondary to pneumonia. Pneumonia was ruled in with consolidation seen on chest imaging. Blood cultures remain negative. Sputum culture were not able to be collected. There is a concern for possible congestive heart failure as well for which she was diuresed and echocardiogram was done. She has been responding eventually and gradually to the treatment and oxygen supplementations have come down and sepsis has resolved. Patient's TAVO which was present on admission has resolved as well and creatinine has remained stable. She has finished 7-day course of IV antibiotics. She has been treated aggressively with pulmonary toilet which she is to continue as an outpatient as well. Echocardiogram eventually showed an EF of 65% with normal diastolic function and a PASP of 39 mmHg is consistent with mild pulmonary hypertension. There is a concern for breast abscess as seen on CT chest which was evaluated by surgeon who recommended no further surgical intervention. Safe discharge plan were discussed in detail with the patient and patient's family who were interested and agreeable for SNF though patient was not accepted. Patient has been doing very well with physical therapy and is currently back to her baseline ambulation of around 140 feet with walker. Home oxygen evaluation has been done prior to discharge. She has been discharged in medically stable condition back home with home health. Physical Exam Const: COMMON NORMALS: patient oriented x3 HENMT: COMMON NORMALS: normocephalic and atraumatic HEAD & SCALP: no rmocephalic and atraumatic Chest: CHEST: Yes Symmetrical chest wall rise OTHER: lt breast wound clean, packed Resp: COMMON NORMALS: clear to auscultation bilaterally EFFORT & INSPECTION: Yes symmetric chest movement AUSCULTATION: clear to auscultation bilaterally OTHER: Diminished air entry bilaterally Cardio: COMMON NORMALS: regular rate, regular rhythm, S1 normal heart sound present, S2 normal heart sound present, No gallops present (Cardio), No murmurs present (Cardio), No rub (Cardio) and Peripheral pulses 2+ throughout RATE: regular rate RHYTHM: regular rhythm HEART SOUNDS: S1 normal heart sound present and S2 normal heart sound present PERIPHERAL PULSES: Peripheral pulses 2+ throughout GI: COMMON NORMALS: Normal to inspection, nondistended, normoactive bowel sounds present, Soft to palpation, non-tender, No hepatosplenomegaly present and no masses AUSCULTATION: Yes normoactive bowel sounds PALPATION: Yes Soft to palpation and Yes No hepatosplenomegaly present RECTAL EXAM: deferred Extremity: COMMON NORMALS: no clubbing, cyanosis or edema and no pedal edema Neuro: COMMON NORMALS: patient oriented x3 Discharge Data Studies Completed and Pending Completed Studies During Hospitalization Category Date Time Status CXRP [XR chest 1V portable [id number]] Stat Exams 12/14/21 01:12 Completed Modified barium swallow [FL barium swallow modifd [id number] Exams 12/19/21 11:19 Completed ] Routine XR chest 1V portable [id number] Routine Exams 12/18/21 05:00 Completed XR chest 1V portable [id number] Stat Exams 12/12/21 11:08 Completed CV. echo complete* [id number] Routine Ultrasound 12/13/21 11:08 Completed US breast LT limited* [id number] Routine Ultrasound 12/12/21 16:34 Completed Pending at discharge Category Date Time Status BMP [Basic Metabolic Panel] AM LABS Lab 12/21/21 04:00 Ordered BMP [Basic Metabolic Panel] AM LABS Lab 12/22/21 04:00 Ordered CBC Auto Diff [Complete Blood Count w/Auto] AM LABS Lab 12/21/21 04:00 Ordered CBC Auto Diff [Complete Blood Count w/Auto] AM LABS Lab 12/22/21 04:00 Ordered Sputum Culture and Gram Stain Routine Lab 12/14/21 07:40 Uncollected Radiology Impressions Breast Ultrasound 12/12/21 16:34 IMPRESSION: Soft tissue ulceration with complex fluid collection with a few internal echoes in the area of concern. Correlation for abscess and infection. Ulceration with fluid collection measures 1.8 x 0.9 x 1.3 cm . Recommend follow-up to resolution. Chest X-Ray 12/18/21 05:00 IMPRESSION: 1. Prominent central pulmonary vasculature could represent pulmonary hypertension. 2. There are increased interstitial opacity seen in the mid and lower hemithoraces, findings that could represent pulmonary edema although a superimposed interstitial pneumonitis cannot be excluded. 3. Patchy opacity seen in the right lower hemithorax likely represents right lower lobe infiltrates and pneumonia. 4. Strandy opacities in the left lung base most probably represents atelectasis. Modified Barium Swallow 12/19/21 11:19 IMPRESSION: 1. Unremarkable modified barium swallow. No sign of aspiration or penetration. A separate report of recommendations and findings will follow from the speech therapy service. Echocardiogram CONCLUSIONS ?1. Normal left ventricular size, systolic function and upper?normal wall thickness, with no regional wall motion?abnormalities. Left ventricular ejection fraction is estimated?at 65 %. Normal diastolic function. ?2. Normal right ventricular size and systolic function. ?3. Mild pulmonary hypertension with pulmonary artery pressure?estimated at 39 mm Hg. ?4. No prior similar studies to compare. ?Jayna Jennings MD ?(Electronically Signed) ?Final Date:? ? ? 13 December 2021 ? 17:34 Laboratory Results WBC 6.6 10^3/uL (4.0-10.0) 12/20/21 04:52 RBC 4.06 10^6/uL (4.1-5.3) L 12/20/21 04:52 Hgb 11.4 g/dL (11.5-15.3) L 12/20/21 04:52 Hct 37.5 % (37.0-47.0) 12/20/21 04:52 MCV 92.4 fl (81-99) 12/20/21 04:52 MCH 28.1 pg (28.0-34.0) 12/20/21 04:52 MCHC 30.4 g/dL (30.0-36.0) 12/20/21 04:52 RDW 15.1 % (12.1-15.1) 12/20/21 04:52 Plt Count 330 10^3/cmm (130-400) 12/20/21 04:52 MPV 9.2 fL (7.4-10.4) 12/20/21 04:52 Neut % (Auto) 72.7 % 12/19/21 08:24 Lymph % (Auto) Not Reportable 12/20/21 04:52 [place] % (Auto) Not Reportable 12/20/21 04:52 Eos % (Auto) 2.2 % 12/19/21 08:24 Baso % (Auto) 1.0 % 12/19/21 08:24 Neut # (Auto) 4.24 10^3/uL (1.8-7.7) 12/19/21 08:24 Lymph # (Auto) Not Reportable 12/20/21 04:52 [place] # (Auto) Not Reportable 12/20/21 04:52 Eos # (Auto) 0.2 10^3/uL (0.0-0.8) 12/19/21 08:24 Baso # (Auto) 0.1 10^3/uL (0.0-0.1) 12/19/21 08:24 Nucleated RBC % (auto) 0 % 12/19/21 08:24 Total Counted 100 (0-100) 12/20/21 04:52 Atypical Lymphs % 0.0 % (0-5) 12/20/21 04:52 Absolute Neutrophils 4.9 10^3/cmm (1.4-6.5) 12/20/21 04:52 Segmented Neutrophils 69 % 12/20/21 04:52 Abs Segm Neuts (Man) 4.6 10/cmm (1.6-7.1) 12/20/21 04:52 Band Neutrophils 5.0 % 12/20/21 04:52 Abs Band Neuts (Man) 0.3 10^3/cmm (0.0-1.2) 12/20/21 04:52 Absolute Lymphocytes 0.7 10^3/cmm (1.2-3.4) L 12/20/21 04:52 Lymphocytes (Manual) 10 % 12/20/21 04:52 Monocytes (Manual) 8.0 % 12/20/21 04:52 Absolute Monocytes 0.5 10^3/cmm (0.1-0.6) 12/20/21 04:52 Eosinophils (Manual) 2 % 12/20/21 04:52 Absolute Eosinophils 0.1 10^3/cmm (0.0-0.7) 12/20/21 04:52 Basophils (Manual) 0.0 % 12/20/21 04:52 Absolute Basophils 0.0 10^3/cmm (0.0-0.2) 12/20/21 04:52 Metamyelocytes 5.0 % 12/20/21 04:52 Myelocytes 1.0 % 12/20/21 04:52 Nucleated RBCs # 0.0 /100WBC 12/19/21 08:24 Toxic Granulation 1+ H 12/15/21 05:39 Toxic Vacuolation 1+ H 12/15/21 05:39 Dohle Bodies 1+ H 12/15/21 05:39 Platelet Estimate Normal (Normal) 12/20/21 04:52 Giant Platelets 1+ H 12/20/21 04:52 Farhad Cells 1+ H 12/15/21 05:39 D-Dimer 3.83 ug/mIFEU (0-0.59) H 12/19/21 14:31 Specimen Type Arterial 12/15/21 04:12 Sample Site Brachial, right 12/15/21 04:12 ABG pH 7.33 (7.35-7.45) L 12/15/21 04:12 ABG pCO2 57.1 mmHg (35-45) H 12/15/21 04:12 ABG pO2 57.1 mmHg (80.0-100.0) L 12/15/21 04:12 ABG HCO3 29.9 mmol/L (22-26) H 12/15/21 04:12 ABG O2 Saturation 91.4 12/15/21 04:12 ABG Base Excess 2.9 mmol/L (-2.0-2.0) H 12/15/21 04:12 David Test Pos 12/15/21 04:12 A-a O2 Gradient 30.1 mmHg (5-10) H 12/15/21 04:12 Hematocrit 32.9 % (37-47) L 12/15/21 04:12 Hgb O2 Saturation 89.9 % (95-100) L 12/15/21 04:12 Carboxyhemoglobin 1.1 %THgb (0.4-20.1) 12/15/21 04:12 Methemoglobin 0.6 % (0.4-1.5) 12/15/21 04:12 Total Hemoglobin 10.7 g/dL (12-16) L 12/15/21 04:12 Sodium 131.0 mmol/L (131-143) 12/15/21 04:12 Potassium 3.7 mmol/L (3.5-5.0) 12/15/21 04:12 Glucose 236.0 mg/dL (70-115) H 12/15/21 04:12 Ionized Calcium 1.1 mmol/L (1.1-1.4) 12/15/21 04:12 O2 Delivery Device Bipap 12/15/21 04:12 FiO2 50.0 % 12/15/21 04:12 Tidal Volume 2.00 12/12/21 11:17 PEEP 6.0 cmH20 12/15/21 04:12 Hris Developer ID [email or web address] 12/15/21 04:12 Sodium 134 mmol/L (136-145) L 12/20/21 04:52 Potassium 4.3 mmol/L (3.5-5.1) 12/20/21 04:52 Chloride 96 mmol/L (98-107) L 12/20/21 04:52 Carbon Dioxide 29 mmol/L (22-29) 12/20/21 04:52 Anion Gap 13.3 (5-19) 12/20/21 04:52 BUN 31 mg/dL (8-23) H 12/20/21 04:52 Creatinine 1.1 mg/dL (0.5-0.9) H 12/20/21 04:52 GFR Calculation Not Reportable 12/20/21 04:52 Glucose 156 mg/dL (65-115) H 12/20/21 04:52 POC Glucose 279 mg/dL (70-110) H 12/20/21 11:22 Estimat Average Glucose 240 12/20/21 04:52 Hemoglobin A1c 10.0 % (4.0-6.0) H 12/20/21 04:52 Calculated Osmolality 288 mOsm/kg (285-295) 12/20/21 04:52 Lactic Acid 2.1 mmol/L (0.5-2.2) 12/12/21 12:22 Lactic Acid (Sepsis) 1.9 mmol/L (0.5-2.2) 12/12/21 14:25 Calcium 9.2 mg/dL (8.5-10.5) 12/20/21 04:52 Magnesium 1.6 mg/dL (1.7-2.3) L 12/13/21 05:08 Iron 36 ug/dL (37-145) L 12/19/21 08:24 TIBC 201 mcg/dl 12/19/21 08:24 % Saturation 17.9 % (20-50) L 12/19/21 08:24 Unsat Iron Binding 165 ug/dL (112-347) 12/19/21 08:24 Total Bilirubin 0.3 mg/dL (0.15-1.2) 12/20/21 04:52 AST 19 U/L (0-32) 12/20/21 04:52 ALT 18 U/L (0-33) 12/20/21 04:52 Alkaline Phosphatase 165 U/L (35-105) H 12/20/21 04:52 Troponin T Baseline 18 ng/L (0-10) H 12/12/21 10:53 Troponin T 120 Minute 17.88 ng/L (0-10) H 12/12/21 12:22 Delta Troponin T -0.12 ABS# (0-10) L 12/12/21 12:22 Troponin T Hi Sens 6Hr 15.08 ng/L (0-10) H 12/12/21 17:41 Troponin T Hi Sens 6Hr Delta -2.92 ng/L (0-12) L 12/12/21 17:41 NT-Pro-B Natriuret Pep 508 pg/mL (0-125) H 12/19/21 08:24 Total Protein 7.0 g/dL (6.6-8.7) 12/20/21 04:52 Albumin 2.2 g/dL (3.5-5.2) L 12/20/21 04:52 Globulin 4.8 g/dL (1.3-4.6) H 12/20/21 04:52 Triglycerides 114 mg/dL (0-150) 12/20/21 04:52 Cholesterol 99 mg/dL (0-200) 12/20/21 04:52 LDL Cholesterol, Calc 44 mg/dL (50-129) L 12/20/21 04:52 Total VLDL Cholesterol 23 mg/dL (0-30) 12/20/21 04:52 HDL Cholesterol 32 mg/dL (60-100) L 12/20/21 04:52 Cholesterol/HDL Ratio 3.09 mg/dL (0.0-4.40) 12/20/21 04:52 Vitamin B12 1211 pg/mL (232-1245) 12/19/21 08:24 Folate 10.8 ng/mL (4.8-37.3) 12/18/21 08:40 Procalcitonin 0.30 ng/mL (0-0.5) 12/19/21 08:24 TSH 2.17 uIU/mL (0.27-4.20) 12/19/21 08:24 Random Cortisol 21.19 ug/dL (2.47-19.5) H 12/14/21 05:29 Urine Color [place] (Yellow) 12/13/21 20:00 Urine Appearance Clear (CLEAR) 12/13/21 20:00 Urine pH 5 (5-7) 12/13/21 20:00 Ur Specific [place] 1.015 (1.005-1.030) 12/13/21 20:00 Urine Protein 1+ (Negative) H 12/13/21 20:00 Urine Glucose (UA) 4+ (Normal) H 12/13/21 20:00 Urine Ketones Negative (Negative) 12/13/21 20:00 Urine Blood 2+ (Negative) H 12/13/21 20:00 Urine Nitrate Negative (Negative) 12/13/21 20:00 Urine Bilirubin Neg (Negative) 12/13/21 20:00 Urine Urobilinogen Norm mg/dL (Negative) 12/13/21 20:00 Ur Leukocyte Esterase Negative (Negative) 12/13/21 20:00 Urine RBC 0-4 /hpf (0-2) H 12/13/21 20:00 Urine WBC 0-4 /hpf (0-5) H 12/13/21 20:00 Ur Squamous Epith Cells 0-4 /hpf (0-5) H 12/13/21 20:00 Amorphous Sediment Not Reportable 12/13/21 20:00 Urine Bacteria 4+ /hpf (NONE) H 12/13/21 20:00 Vancomycin Trough 7.0 ug/mL (10-15) L 12/17/21 08:40 Coronavirus 229E (PCR) Not detected (NOT DETECT) 12/12/21 12:56 SARS-CoV-2 (PCR) Not detected (NOT DETECT) 12/12/21 12:56 Vitals Last Vital Signs Temp 98.3 F 12/20/21 11:36 Pulse 67 12/20/21 11:36 Resp 22 H 12/20/21 11:36 BP 109/66 12/20/21 11:36 Pulse Ox 88 L 12/20/21 12:05 O2 Del Method 12/20/21 11:36 O2 Flow Rate 3 12/20/21 12:05 FiO2 40 12/20/21 07:47 Discharge Plan Discharge Patient Disposition: Home Health Service Prescriptions: New guaifenesin [Mucinex] 600 mg Tablet Extended Release 12hr 600 mg PO BID 7 Days Qty: 14 0RF ferrous gluconate 324 mg (37.5 mg iron) Tablet 324 mg PO BIDWM Qty: 60 0RF Pulmicort Flexhaler 180 mcg/actuation aerosol powdr breath activated 1 inh inhalation BID Qty: 1 0RF Continued citalopram 10 mg Tablet 10 mg PO DAILY tramadol 50 mg Tablet 50 mg PO TID PRN (Reason: Pain) metformin 1,000 mg Tablet 1,000 mg PO DAILY Victoza 2-Manjinder 0.6 mg/0.1 mL (18 mg/3 mL) Pen Injector 1.8 mg SUBCUT DAILY Anoro Ellipta 62.5-25 mcg/actuation Blister With Device 1 inh INHALATION BID duloxetine 60 mg Capsule, Delayed Rel Sprinkle 60 mg PO DAILY methocarbamol 500 mg Tablet 500 mg PO QID PRN (Reason: Muscle Spasms) Qty: 14 0RF sennosides-docusate sodium 8.6-50 mg Tablet 1 tab PO BID Qty: 60 0RF pantoprazole 40 mg Tablet,Delayed Release (Dr/Ec) 40 mg PO BID Qty: 90 0RF aspirin [Farzana Low Dose Aspirin] 81 mg tablet,delayed release (DR/EC) 81 mg PO DAILY Qty: 30 0RF atorvastatin 40 mg tablet 40 mg PO QPM Qty: 30 0RF ketoconazole 2 % shampoo 1 applic TOPICAL DAILY insulin lispro 100 unit/mL insulin pen 12 unit SUBCUT TID Lantus U-100 Insulin 100 unit/mL solution 55 unit SUBCUT QPM Miralax 17 gram powder in packet 17 g PO DAILY PRN (Reason: Constipation) Discontinued metoprolol tartrate 50 mg Tablet 50 mg PO BID Qty: 60 0RF losartan 25 mg tablet 25 mg PO DAILY Discharge Orders: Discharge Order (Routine); Ordered 12/20/21 Ordered By: Zeyad Mosley Other Ambulatory Orders: DME: Oxygen (Order) Location: None Selected Ordered By: Zeyad Mosley Referrals: [facility] ([facility]) [Outside] Guy Salazar DO [Primary Care Provider] - 7-10 days Discharge Diet: Cardiac and Diabetic Discharge Activity: Resume usual activity and Increase activity as tolerated Patient Instructions: Opioid Safety Activity Restrictions/Additional Instructions: Please check your blood pressure daily at home and maintain a blood pressure diary and follow-up with a primary care provider within next 10 days for further adjustment of antihypertensives as needed. For now do not take losartan and metoprolol. Continue taking your inhaler likely for along with Pulmicort which has been added. Take Pulmicort twice daily. Continue taking your insulins like before. Please check your blood sugar daily at home and maintain a blood sugar diary and follow-up with a primary care provider within next 10 days for adjustment of antidiabetic medications as needed. Discharge Attestations Time Spent in Discharge Care*: greater than 30 min Specific Discharge Activities: educating patient, discussing with pcp/other providers, discussing with continuous pillowcase cutter/social workers/dc planners, documenting/other paperwork and evaluating patient/reviewing data Status at Discharge: Cognitive status at discharge: mildly impaired cognition , Behavioral status at discharge: cooperative , Functional status at discharge: uses cane/walker , Overall status at discharge: patient is back to baseline Quality Metrics Clinical Quality Measures [ No reported AMI, CVA or VTE this stay] Coding Level of Care Code Acute Chg FW DC note Diagnoses Hypoxia R09.02 Pneumonia J18.9 Hyperglycemia R73.9 Diabetes mellitus type 2 in obese E11.69; E66.9 COPD (chronic obstructive pulmonary disease) J44.9 CKD (chronic kidney disease) stage 3, GFR 30-59 ml/min N18.30 Coronary artery disease I25.10 Sepsis A41.9 Depression F32.9 Open wound of left breast S21.002A
[2021-12-20 16:17] LABS: Glucose Point of Care 193 mg/dL (70-110)
--- NOTE | 2021-12-20 18:48 | PC.NURSE ---
Discussed discharge paperwork, follow up appointments, new medications and discontinued medications. Daughter verbalized understanding
== END 2021-12-20 17:30 | disposition home health service (06) | DRG 871 ==
LOC: ER 13:21 → MEDSURG 14:58
PROVIDERS: Family Medicine; Internal Medicine; Admitting Provider Internal Medicine; Emergency Provider Emergency Medicine; PCP Internal Medicine; Visit Provider Student in an Organized Health Care Education/Training Program
DX: A41.9 Sepsis, unspecified organism (principal); I50.33 Acute on chronic diastolic (congestive) heart failure; J18.9 Pneumonia, unspecified organism; J96.22 Acute and chronic respiratory failure with hypercapnia; J96.21 Acute and chronic respiratory failure with hypoxia; J44.0 Chronic obstructive pulmonary disease with (acute) lower respiratory infection; J44.1 Chronic obstructive pulmonary disease with (acute) exacerbation; I13.0 Hypertensive heart and chronic kidney disease with heart failure and stage 1 through stage 4 chronic kidney disease, or unspecified chronic kidney disease; E87.1 Hypo-osmolality and hyponatremia; N17.9 Acute kidney failure, unspecified; S21.002A Unspecified open wound of left breast, initial encounter; X58.XXXA Exposure to other specified factors, initial encounter; N18.9 Chronic kidney disease, unspecified; E11.22 Type 2 diabetes mellitus with diabetic chronic kidney disease; E11.40 Type 2 diabetes mellitus with diabetic neuropathy, unspecified; E11.65 Type 2 diabetes mellitus with hyperglycemia; I25.10 Atherosclerotic heart disease of native coronary artery without angina pectoris; Z95.5 Presence of coronary angioplasty implant and graft; Z99.81 Dependence on supplemental oxygen; F32.A Depression, unspecified; Z86.73 Personal history of transient ischemic attack (TIA), and cerebral infarction without residual deficits; E66.9 Obesity, unspecified; Z68.27 Body mass index [BMI] 27.0-27.9, adult; F17.200 Nicotine dependence, unspecified, uncomplicated; I27.20 Pulmonary hypertension, unspecified; I95.9 Hypotension, unspecified; Z79.4 Long term (current) use of insulin; Z79.82 Long term (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; Z79.84 Long term (current) use of oral hypoglycemic drugs; Z79.891 Long term (current) use of opiate analgesic
CPT/HCPCS: 11042; 12345; 36415; 36416; 36600; 71045; 74230; 76642; 80048; 80051; 80053; 80061; 80202; 81001; 82330; 82533; 82607; 82746; 82803; 82805; 82962; 83036; 83540; 83550; 83605; 83735; 83880; 84145; 84443; 84484; 85007; 85025; 85378; 87040; 87086; 87635; 87641; 92611; 93005; 93306; 94640; 94660; 94669; 94760; 94762; 96365; 96372; 96375; 97110; 97116; 97161; 97530; 99285; A6212; J1650; J1815; J1885; J1940; J1956; J2543; J3370; J3475; J7030; J7050; J7608; J7626

== ENCOUNTER → 2021-12-27 15:34 | Outpatient (BNVA) | payer MEDICARE, MEDICAID, SELFPAY | PROVIDERS: PCP Internal Medicine; Visit Provider Nurse Practitioner Family | DX: I96 Gangrene, not elsewhere classified (principal); N61.0 Mastitis without abscess; L98.492 Non-pressure chronic ulcer of skin of other sites with fat layer exposed | CPT/HCPCS: 11042 ==

== ENCOUNTER 2021-12-28 19:09 | Emergency (ER) | payer MEDICARE, MEDICAID, SELFPAY ==
[2021-12-28 19:13] VITALS: BP 130/99; PULSE 65; RESP 16; TEMP 36.6; O2SAT 91; BMI 27.8
--- NOTE | 2021-12-28 19:30 | W.ED.FALL ---
HPI - Fall General: Chief Complaint: Fall Stated Complaint: SHOULDER PAIN Time Seen by Provider: 12/28/21 19:15 History of Present Illness: 76-year-old female presents with her daughter chief complaint of having a fall from standing prior to arrival. The patient was trying to feed her dog when she lost balance fell forward she is primary complaining of left shoulder pain. Patient reports of a prior history of fracture left elbow as well as right shoulder fracture. The patient reports full range of motion of the left wrist and left elbow reports significant pain to movement of the left shoulder she reports she had no loss of consciousness reports no neck nor back or chest pain. The patient presents to the ER for further assessment and management. Associated symptoms-after fall: Denies abdominal pain, chest pain or headache(s) Review of Systems General: Reports: 10 or more systems reviewed and unremarkable except in HPI and below Const: Denies: fever(s), chills, fatigue or malaise Eyes: Denies: change in vision or blurry vision Card: Denies: chest pain or palpitations Resp: Denies: dyspnea or productive cough GI: Denies: abdominal pain, nausea or vomiting : Denies: flank pain Musc: Reports: extremity pain, joint pain and limited range of motion Skin/Breast: Denies: rash or pruritus Neuro: Denies: headache(s) Psych: Denies: anxiety or depression Casey/Lymph: Denies: easy bleeding All/Imm: Denies: urticaria, throat swelling or facial swelling [facility] ED PFSH: Medical History CKD (chronic kidney disease) stage 3, GFR 30-59 ml/min Coffee ground emesis Episode of emesis with what was thought to be perhaps coffee-ground on appearance, gastric occult was noted positive, although this is nonspecific. Was started on PPI. Hemoglobin remained stable. Please follow-up hemoglobin. Discontinue PPI as appropriate depending on symptoms, blood count level. Consider whether upper endoscopy depending on clinical course. COPD (chronic obstructive pulmonary disease) Chronically uses 2 L per nasal cannula Coronary artery disease Depression Diabetes mellitus type 2 in obese Dizziness Thought initially perhaps labyrinthitis, however, no noted episodes here, however, with noted episodes of soft blood pressure, as well as bradycardia, and does appear that her metoprolol dose is too high. At this time will decrease to 50 mg twice a day. Please monitor symptoms. Strict fall precautions. Consider additional work-up in case symptoms return/persist. Left kidney mass Incidentally noted 1.6 cm hyperdense mass in posterior mid left kidney. Not seen on prior studies. Please follow-up three-phase CT evaluation. Nephrolithiasis Peripheral neuropathy Stroke Incidentally noted possible subacute CVA on CT of the head and right frontal temporal region. Please obtain additional assessment for risk factors, and help her manage already known severe risk factors including smoking, diabetes, vascular disease. She is referred for MRI of the brain. She is restarted on aspirin as hemoglobin has been stable. Statin is added. Please consider additional evaluation by carotid Doppler as the last 1 was unremarkable but was done back in 2008, as well as referral to neurology. Surgical History History of ankle surgery History of appendectomy History of bladder surgery History of carpal tunnel surgery History of cataract surgery History of shoulder surgery Hx of CABG 2004 Family History Other Dementia Social History Smoking and tobacco status: current every day smoker Alcohol intake: never History of recent travel: No Physical Exam Const: COMMON NORMALS: patient oriented x3 and healthy appearing; apparent distress (Patient appears to be in moderate distress due to pain located in her left ) HENMT: COMMON NORMALS: normocephalic and atraumatic HEAD & SCALP: normocephalic and atraumatic Eye: COMMON NORMALS: Equal, round and reactive pupils present and EOMs intact bilaterally PUPIL: Yes Equal, round and reactive pupils present Neck/C-Spine: COMMON NORMALS: full ROM, supple and no JVD Lymph: LYMPHATIC: no lymphadenopathy noted Chest: COMMONS NORMALS: normal inspection of the chest and normal palpation of entire chest wall Resp: COMMON NORMALS: normal respiratory effort, No retractions and clear to auscultation bilaterally EFFORT & INSPECTION: Yes able to speak in complete sentences and Yes symmetric chest movement AUSCULTATION: clear to auscultation bilaterally Cardio: COMMON NORMALS: no JVD, regular rate and regular rhythm RATE: regular rate RHYTHM: regular rhythm GI: COMMON NORMALS: Normal to inspection, nondistended, normoactive bowel sounds present, Soft to palpation and non-tender INSPECTION: Yes normal to inspection PALPATION: Yes Soft to palpation : COMMON NORMALS: Yes no CVA tenderness BLADDER/KIDNEY EXAM: Yes no CVA tenderness Back/Pelvis: COMMON NORMALS: no CVA tenderness Extremity: NARRATIVE EXTREMITY EXAM: Full range of motion of the left wrist and left elbow noted unable to move the left shoulder without consider amount of pain reduced range of motion due to this patient is neurovascular intact distally no obvious crepitus. ecchymosis or step-offs appreciated to the left shoulder or chest wall. Neuro: COMMON NORMALS: patient oriented x3, CN's II-XII intact bilaterally, moves all extremities and no focal motor deficits Psych: COMMON NORMALS: mental status grossly normal, Normal thought process present, cooperative and normal affect THOUGHT PROCESS: Normal thought process present Skin: COMMON NORMALS: no rashes or lesions noted GENERAL SKIN EXAM: no rashes or lesions noted Course Vital Signs: Vital signs: Vital Signs Temperature 97.9 F 12/28/21 19:13 Pulse Rate 68 12/28/21 21:20 Respiratory Rate 16 12/28/21 21:20 Blood Pressure 117/72 12/28/21 21:20 Pulse Oximetry 96 12/28/21 21:20 Oxygen Delivery Me thod 12/28/21 21:20 Oxygen Flow Rate 3 12/28/21 21:20 MDM - Fall Medical Decision Making Due to the patient's symptoms and condition IV will be established basic lab work obtained patient was provided with IV fentanyl for breakthrough pain control chest x-ray and two-view shoulder x-ray series will be obtained we will continue to follow underlying concerns of a radius fracture versus dislocation versus rotator cuff versus other injury is prominent. Patient was found to have a proximal humeral head fracture she was placed into an arm sling provided further follow-up with orthopedics referral placed on additional pain medications advised further follow-up in approximately 3 to 5 days was advised to return the interim if any of her symptoms persist or worse. Lab Data 12/28/21 20:42 12/28/21 20:42 Radiology Impressions Chest X-Ray 12/28/21 19:47 IMPRESSION: 1. Consolidation in the right lung base, there may be a component of scarring in this region, correlate for signs of pneumonia. 2. Redemonstrated proximal left humeral fracture. Shoulder X-Ray 12/28/21 19:47 IMPRESSION: Fracture through the proximal left humerus. Laboratory Results WBC 7.2 10^3/uL (4.0-10.0) 12/28/21 20:42 RBC 4.50 10^6/uL (4.1-5.3) 12/28/21 20:42 Hgb 12.9 g/dL (11.5-15.3) 12/28/21 20:42 Hct 45.4 % (37.0-47.0) 12/28/21 20:42 MCV 100.9 fl (81-99) H 12/28/21 20:42 MCH 28.7 pg (28.0-34.0) 12/28/21 20:42 MCHC 28.4 g/dL (30.0-36.0) L 12/28/21 20:42 RDW 15.0 % (12.1-15.1) 12/28/21 20:42 Plt Count 274 10^3/cmm (130-400) 12/28/21 20:42 MPV 8.5 fL (7.4-10.4) 12/28/21 20:42 Neut % (Auto) 73.2 % 12/28/21 20:42 Lymph % (Auto) 16.5 % 12/28/21 20:42 [place] % (Auto) 7.5 % 12/28/21 20:42 Eos % (Auto) 0.8 % 12/28/21 20:42 Baso % (Auto) 1.0 % 12/28/21 20:42 Neut # (Auto) 5.29 10^3/uL (1.8-7.7) 12/28/21 20:42 Lymph # (Auto) 1.2 10^3/uL (0.8-4.8) 12/28/21 20:42 [place] # (Auto) 0.5 10^3/uL (0.2-0.9) 12/28/21 20:42 Eos # (Auto) 0.1 10^3/uL (0.0-0.8) 12/28/21 20:42 Baso # (Auto) 0.1 10^3/uL (0.0-0.1) 12/28/21 20:42 Nucleated RBC % (auto) 0 % 12/28/21 20:42 Nucleated RBCs # 0.0 /100WBC 12/28/21 20:42 Sodium Cancelled 12/28/21 20:42 Potassium Cancelled 12/28/21 20:42 Chloride Cancelled 12/28/21 20:42 Carbon Dioxide Cancelled 12/28/21 20:42 Anion Gap Cancelled 12/28/21 20:42 BUN Cancelled 12/28/21 20:42 Creatinine Cancelled 12/28/21 20:42 GFR Calculation Cancelled 12/28/21 20:42 Glucose Cancelled 12/28/21 20:42 Calculated Osmolality Cancelled 12/28/21 20:42 Calcium Cancelled 12/28/21 20:42 Total Bilirubin Cancelled 12/28/21 20:42 AST Cancelled 12/28/21 20:42 ALT Cancelled 12/28/21 20:42 Alkaline Phosphatase Cancelled 12/28/21 20:42 Total Protein Cancelled 12/28/21 20:42 Albumin Cancelled 12/28/21 20:42 Globulin Cancelled 12/28/21 20:42 Discharge Plan Discharge Patient Disposition: Home Clinical Impression: Fall from standing, Fracture of head of humerus Condition: Stable Prescriptions: New hydrocodone-acetaminophen 5-325 mg tablet 1 tab PO Q8H PRN (Reason: pain) Qty: 20 0RF Natural Senna Laxative 8.6 mg tablet 8.6 mg PO DAILY PRN (Reason: constipation) Qty: 20 0RF ondansetron 4 mg tablet,disintegrating 4 mg PO TID PRN (Reason: nausea and vomiting) Qty: 15 0RF No Action citalopram 10 mg Tablet 10 mg PO DAILY tramadol 50 mg Tablet 50 mg PO TID PRN (Reason: Pain) metformin 1,000 mg Tablet 1,000 mg PO DAILY Victoza 2-Manjinder 0.6 mg/0.1 mL (18 mg/3 mL) Pen Injector 1.8 mg SUBCUT DAILY Anoro Ellipta 62.5-25 mcg/actuation Blister With Device 1 inh INHALATION BID duloxetine 60 mg Capsule, Delayed Rel Sprinkle 60 mg PO DAILY methocarbamol 500 mg Tablet 500 mg PO QID PRN (Reason: Muscle Spasms) Qty: 14 0RF sennosides-docusate sodium 8.6-50 mg Tablet 1 tab PO BID Qty: 60 0RF pantoprazole 40 mg Tablet,Delayed Release (Dr/Ec) 40 mg PO BID Qty: 90 0RF aspirin [Farzana Low Dose Aspirin] 81 mg tablet,delayed release (DR/EC) 81 mg PO DAILY Qty: 30 0RF atorvastatin 40 mg tablet 40 mg PO QPM Qty: 30 0RF ketoconazole 2 % shampoo 1 applic TOPICAL DAILY insulin lispro 100 unit/mL insulin pen 12 unit SUBCUT TID Lantus U-100 Insulin 100 unit/mL solution 55 unit SUBCUT QPM Miralax 17 gram powder in packet 17 g PO DAILY PRN (Reason: Constipation) ferrous gluconate 324 mg (37.5 mg iron) Tablet 324 mg PO BIDWM Qty: 60 0RF Pulmicort Flexhaler 180 mcg/actuation aerosol powdr breath activated 1 inh inhalation BID Qty: 1 0RF Discharge Orders: Discharge ED (Routine); Ordered 12/28/21 Ordered By: Jose E Rojo Referrals: Alem Auguste PA [Primary Care Provider] - Benitez Bernard MD [Physician] - 4-7 days (please call office for additional information. ) Discharge Diet: Regular Discharge Activity: Limit activity as instructed Patient Instructions: Proximal Humerus Fracture (ED), Opioid Safety, Pain Management, Fall Prevention Activity Restrictions/Additional Instructions: Please contact the orthopedic doctor as noted above in the next 1 to 2 days for an appointment over the next 1 week, take medications as prescribed use the provided sling until seen and cleared by orthopedics please return the interim if any of your symptoms persist or worse. Coding Level of Care Code ED Revenue [employer] Consultant for Jr Fwd Exam Comprehensive
[2021-12-28 19:45] VITALS: BP 134/74; PULSE 69; RESP 16; O2SAT 92
--- NOTE | 2021-12-28 19:47 | XRR_ITS ---
PROCEDURE INFORMATION: Exam: XR Chest Exam date and time: 12/28/2021 8:58 PM Age: 76 years old Clinical indication: Pain; Chest pressure; Prior surgery; Surgery date: 6+ months; Additional info: Trauma TECHNIQUE: Imaging protocol: Radiologic exam of the chest. Views: 1 view. COMPARISON: CR (CHEST, ) 12/18/2021 4:48 AM FINDINGS: Lungs: Hyperinflated lungs. Consolidation in the right lung base, there may be a component of scarring in this region. Pleural spaces: No pleural effusion. No pneumothorax. Heart/Mediastinum: Mild cardiomegaly. Bones/joints: Sternotomy wires noted. Redemonstrated proximal left humeral fracture. XR/XR chest 1V portable [id number] IMPRESSION: 1. Consolidation in the right lung base, there may be a component of scarring in this region, correlate for signs of pneumonia. 2. Redemonstrated proximal left humeral fracture.
--- NOTE | 2021-12-28 19:47 | XRR_ITS ---
PROCEDURE INFORMATION: Exam: XR Left Shoulder Exam date and time: 12/28/2021 8:59 PM Age: 76 years old Clinical indication: Pain and injury or trauma; Fall; Fracture, traumatic injury; Closed fracture; Scapula; Left; Shoulder; Additional info: Fall with injury TECHNIQUE: Imaging protocol: Radiologic exam of the Left shoulder. Views: 2 or more views. COMPARISON: CR XR chest 1V portable [id number] 12/28/2021 8:58 PM FINDINGS: Bones/joints: Transverse fracture through the proximal humerus at the head neck interface. No dislocation. The rest of the osseous structures are intact. Soft tissues: Normal. XR/XR shoulder LT min 2V* [id number] IMPRESSION: Fracture through the proximal left humerus.
[2021-12-28 20:10] VITALS: BP 145/71; PULSE 66; RESP 16; O2SAT 92
[2021-12-28] MEDS: fentaNYL 50 mcg/mL INJ 2mL IVP (20:19)
[2021-12-28] MEDS: ondansetron 2 mg/ML SDV 2 mL 4 MG IVP (20:20)
[2021-12-28] MEDS: sodium chloride 0.9% 500 ML IV (20:20)
[2021-12-28 20:50] LABS: Basophils # 0.1 10^3/uL (0.0-0.1); Eosinophils # 0.1 10^3/uL (0.0-0.8); Eosinophils % 0.8 %; Hematocrit 45.4 % (37.0-47.0); Hemoglobin 12.9 g/dL (11.5-15.3); Lymphocytes # 1.2 10^3/uL (0.8-4.8); Lymphocytes % 16.5 %; Mean Corpuscular HGB Conc 28.4 g/dL (30.0-36.0); Mean Corpuscular Hemoglobin 28.7 pg (28.0-34.0); Mean Corpuscular Volume 100.9 fl (81-99); Mean Platelet Volume 8.5 fL (7.4-10.4); Monocytes # 0.5 10^3/uL (0.2-0.9); Monocytes % 7.5 %; Neutrophils # 5.29 10^3/uL (1.8-7.7); Neutrophils % 73.2 %; Nucleated Red Blood Cells % 0 %; Platelet Count 274 10^3/cmm (130-400); White Blood Count 7.2 10^3/uL (4.0-10.0)
[2021-12-28 21:20] VITALS: BP 117/72; PULSE 68; RESP 16; O2SAT 96
--- NOTE | 2021-12-28 21:45 | PC.NURSE ---
5-5/325mg [place] given as a take home pack to patient with instructions to take 1 every 6 hours as needed for pain per Dr. Rojo order
--- NOTE | 2021-12-29 10:02 | DCPLANNER ---
Addendum entered by Eliana Delcid 01/12/22 16:16: commercial finance manager received the following message from the ortho clinic regarding follow up appointment: attempted to contact patient - left voicemail on first number listed - second [facility] and they state she is not with them. mailed letter to address in chart to call back and schedule with dr perez Original Note: commercial finance manager had message to schedule a follow up appointment for patient with ortho. commercial finance manager sent patients information to the front office staff at ortho. patients information will be printed and reviewed. clinic will call patient with appointment information.
== END 2021-12-28 21:45 | disposition home or self-care (01) ==
PROVIDERS: Emergency Provider Emergency Medicine; PCP Physician Assistant
DX: S42.202A Unspecified fracture of upper end of left humerus, initial encounter for closed fracture (principal); Z79.82 Long term (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; Z79.4 Long term (current) use of insulin; E11.22 Type 2 diabetes mellitus with diabetic chronic kidney disease; N18.30 Chronic kidney disease, stage 3 unspecified; J44.9 Chronic obstructive pulmonary disease, unspecified; I25.10 Atherosclerotic heart disease of native coronary artery without angina pectoris; Z86.73 Personal history of transient ischemic attack (TIA), and cerebral infarction without residual deficits; Z95.1 Presence of aortocoronary bypass graft; F17.210 Nicotine dependence, cigarettes, uncomplicated; W01.0XXA Fall on same level from slipping, tripping and stumbling without subsequent striking against object, initial encounter
CPT/HCPCS: 29240; 36415; 71045; 73030; 85025; 96361; 96374; 96375; 99284; J2405; J3010; J7040

== ENCOUNTER 2021-12-30 11:28 | Inpatient (IN) | payer MEDICARE, MEDICAID, SELFPAY ==
[2021-12-30 11:41] VITALS: BP 105/64; PULSE 66; RESP 16; TEMP 36.5; O2SAT 92
--- NOTE | 2021-12-30 11:48 | ECG_ITS ---
[facility] Test Date: 2021-12-30 Pat Name: Deyanira Gonsales Department: Room: Gender: Female Psychologist Educational: : 1945 Requested By: Trung Calzada Order Number: [id number] Gregory MD: Caio Kitchen M.D. Measurements Intervals [place] Rate: 66 P: 81 [place]: 145 QRS: 82 QRSD: 99 T: 76 QT: 388 QTc: 409 Interpretive Statements SINUS RHYTHM LOW QRS VOLTAGE IN PRECORDIAL LEADS [QRS DEFLECTION < 1.0 mV IN CHEST LEADS] Compared to ECG 12/12/2021 16:34:21 T-wave abnormality no longer present Possible ischemia no longer present Electronically Signed On 12-31-2021 11:02:38 PERFORATOR TYPIST by Caio Kitchen M.D. [id number]
--- NOTE | 2021-12-30 12:49 | W.ED.SOB ---
HPI - SOB/Dyspnea General: Chief Complaint: Shortness of Breath/Dyspnea Stated Complaint: sob, low ox Time Seen by Provider: 12/30/21 12:41 Source: patient Mode of arrival: ambulatory History of Present Illness: HPI Narrative: 76-year-old female presents emergency room complaining of shortness of breath. She fell 2 nights ago was in the emergency room and had a proximal humerus fracture on the left was placed in a sling she has a history of COPD is normally on 3 L they reported at 2 L she was 69% and required to go up to 4 L to get into the 90s. On arrival here I seen her she is at 3 and half I titrated her back down to 3 and she is holding her side in the mid 90s. She complains of vague chest discomfort. There is a questionable read for pneumonia on the last time she had a chest x-ray here 2 nights ago. She states she has had minimally productive cough and feels like she needs to bring something up low-grade subjective fever. MD elicited complaint: shortness of breath and cough Pertinent past history: COPD Onset (ago): day(s) Context: recent illness Timing: constant Severity: moderate Exacerbating factors: exertion and coughing Relieving factors: oxygen and rest Known history of: COPD Associated symptoms: Reports chest congestion and cough; Deny abdominal pain, chest pain, diaphoresis, dizziness, extremity pain, fever(s), hemoptysis, lightheadedness, myalgias, nausea, orthopnea, palpitations, paresthesias, polydipsia, polyuria, rash, sense of impending doom, syncope or vomiting Treatment prior to arrival: oxygen Related Data: Home oxygen amount: 3 liters Review of Systems Const: Denies: fever(s), chills, fatigue, malaise or diaphoresis ENMT: Denies: throat pain, ear or mastoid pain, nasal discharge or nasal congestion Card: Denies: chest pain, palpitations, lightheadedness, syncope or orthopnea Resp: Reports: dyspnea, non-productive cough, wheezing and chest congestion; Denies: hemoptysis GI: Reports: diarrhea; Denies: abdominal pain, nausea or vomiting : Denies: flank pain, difficulty voiding, dysuria, urinary frequency or urinary urgency Musc: Denies: extremity pain Skin/Breast: Denies: rash or pruritus Neuro: Denies: dizziness Endo: Denies: polyuria or polydipsia PFSH ED PFSH: Medical History CKD (chronic kidney disease) stage 3, GFR 30-59 ml/min Coffee ground emesis Episode of emesis with what was thought to be perhaps coffee-ground on appearance, gastric occult was noted positive, although this is nonspecific. Was started on PPI. Hemoglobin remained stable. Please follow-up hemoglobin. Discontinue PPI as appropriate depending on symptoms, blood count level. Consider whether upper endoscopy depending on clinical course. COPD (chronic obstructive pulmonary disease) Chronically uses 2 L per nasal cannula Coronary artery disease Depression Diabetes mellitus type 2 in obese Dizziness Thought initially perhaps labyrinthitis, however, no noted episodes here, however, with noted episodes of soft blood pressure, as well as bradycardia, and does appear that her metoprolol dose is too high. At this time will decrease to 50 mg twice a day. Please monitor symptoms. Strict fall precautions. Consider additional work-up in case symptoms return/persist. Left kidney mass Incidentally noted 1.6 cm hyperdense mass in posterior mid left kidney. Not seen on prior studies. Please follow-up three-phase CT evaluation. Nephrolithiasis Peripheral neuropathy Pneumonia Stroke Incidentally noted possible subacute CVA on CT of the head and right frontal temporal region. Please obtain additional assessment for risk factors, and help her manage already known severe risk factors including smoking, diabetes, vascular disease. She is referred for MRI of the brain. She is restarted on aspirin as hemoglobin has been stable. Statin is added. Please consider additional evaluation by carotid Doppler as the last 1 was unremarkable but was done back in 2008, as well as referral to neurology. Surgical History History of ankle surgery History of appendectomy History of bladder surgery History of carpal tunnel surgery History of cataract surgery History of shoulder surgery Hx of CABG 2004 Family History Other Dementia Social History Smoking and tobacco status: current every day smoker Alcohol intake: never History of recent travel: No Physical Exam Const: COMMON NORMALS: no acute distress GENERAL APPEARANCE: cooperative and comfortable ORIENTATION/CONSCIOUSNESS: Yes awake, Yes oriented to person, Yes oriented to place and Yes oriented to time HENMT: COMMON NORMALS: normocephalic, atraumatic and hearing grossly normal bilaterally HEAD & SCALP: normocephalic and atraumatic Resp: COMMON NORMALS: normal respiratory effort, No retractions and No use of accessory muscles AUSCULTATION: rhonchi and wheezes Cardio: COMMON NORMALS: regular rate, regular rhythm and No murmurs present (Cardio) RATE: regular rate RHYTHM: regular rhythm GI: COMMON NORMALS: Soft to palpation and No hepatosplenomegaly present AUSCULTATION: Yes normoactive bowel sounds PALPATION: Yes Soft to palpation, No Tenderness to palpation present (GI), No Guarding due to palpation present (GI) and Yes No hepatosplenomegaly present Extremity: COMMON NORMALS: capillary refill normal and no calf tenderness OTHER: Left arm in sling secondary to proximal humerus fracture Neuro: SENSORIUM/ORIENTATION: Yes oriented to person, Yes oriented to place and Yes oriented to time Skin: COMMON NORMALS: no rashes or lesions noted GENERAL SKIN EXAM: no rashes or lesions noted Course Vital Signs: Vital signs: Vital Signs Temperature 97.9 F 01/04/22 11:11 Pulse Rate 73 01/04/22 11:11 Respiratory Rate 16 01/04/22 11:11 Blood Pressure 111/69 01/04/22 11:11 Pulse Oximetry 90 01/04/22 11:11 Oxygen Delivery Me thod 01/04/22 11:11 Oxygen Flow Rate 3 01/04/22 08:03 Fraction of Inspir ed Oxygen 5 12/31/21 03:23 MDM - SOB/Dyspnea Medical Decision Making Pneumonia also has some hypotension. Exacerbation of COPD she is now requiring 4 back to 4 L on her oxygen to maintain her sats. She will require IV antibiotics admit. Discussed with hospitalist orders written Medical Records I reviewed the patient's medical records. Lab Data I reviewed the patient's lab results. 12/30/21 13:10 12/30/21 13:10 Labs/Radiology: Radiology Impressions Chest X-Ray 12/30/21 12:57 IMPRESSION: 1. Stable right lower lobe parenchymal density possible parenchymal scar 2. Metallic sternotomy wires are present. 3. Otherwise negative examination 3. Otherwise negative chest examination Chest/Abdomen/Pelvis CT 12/30/21 17:56 IMPRESSION: 1. Bilateral lower lobe pneumonia 2. Findings of emphysema as described 3. Right middle lobe pulmonary nodule stable since 2017. No further follow-up or evaluation is required. 4. No gross evidence of pulmonary embolism. IMPRESSION: 1. No acute findings in the abdomen or pelvis. 2. Previously seen suspicious mass left kidney no longer identified. 3. Possible small gallstones within the gallbladder. Laboratory Results WBC 6.7 10^3/uL (4.0-10.0) 12/30/21 13:10 RBC 4.02 10^6/uL (4.1-5.3) L 12/30/21 13:10 Hgb 11.4 g/dL (11.5-15.3) L 12/30/21 13:10 Hct 37.1 % (37.0-47.0) 12/30/21 13:10 MCV 92.3 fl (81-99) 12/30/21 13:10 MCH 28.4 pg (28.0-34.0) 12/30/21 13:10 MCHC 30.7 g/dL (30.0-36.0) 12/30/21 13:10 RDW 15.0 % (12.1-15.1) 12/30/21 13:10 Plt Count 230 10^3/cmm (130-400) 12/30/21 13:10 MPV 8.8 fL (7.4-10.4) 12/30/21 13:10 Neut % (Auto) 65.3 % 12/30/21 13:10 Lymph % (Auto) 24.1 % 12/30/21 13:10 [place] % (Auto) 8.1 % 12/30/21 13:10 Eos % (Auto) 1.4 % 12/30/21 13:10 Baso % (Auto) 0.6 % 12/30/21 13:10 Neut # (Auto) 4.35 10^3/uL (1.8-7.7) 12/30/21 13:10 Lymph # (Auto) 1.6 10^3/uL (0.8-4.8) 12/30/21 13:10 [place] # (Auto) 0.5 10^3/uL (0.2-0.9) 12/30/21 13:10 Eos # (Auto) 0.1 10^3/uL (0.0-0.8) 12/30/21 13:10 Baso # (Auto) 0.0 10^3/uL (0.0-0.1) 12/30/21 13:10 Nucleated RBC % (auto) 0 % 12/30/21 13:10 Nucleated RBCs # 0.0 /100WBC 12/30/21 13:10 Sodium 134 mmol/L (136-145) L 12/30/21 13:10 Potassium 4.7 mmol/L (3.5-5.1) 12/30/21 13:10 Chloride 95 mmol/L (98-107) L 12/30/21 13:10 Carbon Dioxide 31 mmol/L (22-29) H 12/30/21 13:10 Anion Gap 12.7 (5-19) 12/30/21 13:10 BUN 28 mg/dL (8-23) H 12/30/21 13:10 Creatinine 1.0 mg/dL (0.5-0.9) H 12/30/21 13:10 GFR Calculation Not Reportable 12/30/21 13:10 Glucose 232 mg/dL (65-115) H 12/30/21 13:10 Estimat Average Glucose 237 12/30/21 13:10 Hemoglobin A1c 9.9 % (4.0-6.0) H 12/30/21 13:10 Calculated Osmolality 291 mOsm/kg (285-295) 12/30/21 13:10 Calcium 9.3 mg/dL (8.5-10.5) 12/30/21 13:10 Total Bilirubin 0.4 mg/dL (0.15-1.2) 12/30/21 13:10 AST 14 U/L (0-32) 12/30/21 13:10 ALT 20 U/L (0-33) 12/30/21 13:10 Alkaline Phosphatase 158 U/L (35-105) H 12/30/21 13:10 Troponin T Baseline 19 ng/L (0-10) H 12/30/21 13:10 Troponin T 120 Minute 19.64 ng/L (0-10) H 12/30/21 15:14 Delta Troponin T 0.64 ABS# (0-10) 12/30/21 15:14 Troponin T Hi Sens 6Hr 19.10 ng/L (0-10) H 12/30/21 18:55 Troponin T Hi Sens 6Hr Delta 0.10 ng/L (0-12) 12/30/21 18:55 NT-Pro-B Natriuret Pep 360 pg/mL (0-125) H 12/30/21 13:10 Total Protein 7.5 g/dL (6.6-8.7) 12/30/21 13:10 Albumin 3.3 g/dL (3.5-5.2) L 12/30/21 13:10 Globulin 4.2 g/dL (1.3-4.6) 12/30/21 13:10 Lipase 43 U/L (13-60) 12/30/21 13:10 Discharge Plan Discharge Patient Disposition: Admitted As Inpatient Admit Provider: Farshad Chawla Clinical Impression: Community acquired pneumonia, Fracture of humerus, proximal, left, closed, Acute exacerbation of chronic obstructive airways disease, Chronic kidney disease (CKD), Acute respiratory failure with hypoxia, Encephalopathy Condition: Stable Coding Level of Care Code ED [place] Specialist for Jr [place]
--- NOTE | 2021-12-30 12:57 | XRR_ITS ---
PROCEDURE INFORMATION: Exam: XR Chest Exam date and time: 12/30/2021 2:22 PM Age: 76 years old Clinical indication: Cough and dyspnea; Additional info: Dyspnea/cough TECHNIQUE: Imaging protocol: Radiologic exam of the chest. Views: 1 view. COMPARISON: CR XR chest 1V portable [id number] 12/28/2021 8:58 PM FINDINGS: Lungs: Parenchymal densities right lower lobe possible parenchymal scar stable since prior. . The lungs are otherwise expanded and clear. No interval changes are seen comparing to prior Pleural spaces: Unremarkable. No pleural effusion. No pneumothorax. Heart/Mediastinum: Unremarkable. No cardiomegaly. Bones/joints: Metallic sternotomy wires are present. XR/XR chest 1V portable [id number] IMPRESSION: 1. Stable right lower lobe parenchymal density possible parenchymal scar 2. Metallic sternotomy wires are present. 3. Otherwise negative examination 3. Otherwise negative chest examination
[2021-12-30 13:12] VITALS: BP 105/64; PULSE 66; RESP 16; TEMP 36.5; O2SAT 93
[2021-12-30 13:23] VITALS: O2SAT 95
[2021-12-30 13:30] LABS: Basophils % 0.6 %; Eosinophils # 0.1 10^3/uL (0.0-0.8); Eosinophils % 1.4 %; Hematocrit 37.1 % (37.0-47.0); Hemoglobin 11.4 g/dL (11.5-15.3); Lymphocytes # 1.6 10^3/uL (0.8-4.8); Lymphocytes % 24.1 %; Mean Corpuscular HGB Conc 30.7 g/dL (30.0-36.0); Mean Corpuscular Hemoglobin 28.4 pg (28.0-34.0); Mean Corpuscular Volume 92.3 fl (81-99); Mean Platelet Volume 8.8 fL (7.4-10.4); Monocytes # 0.5 10^3/uL (0.2-0.9); Monocytes % 8.1 %; Neutrophils # 4.35 10^3/uL (1.8-7.7); Neutrophils % 65.3 %; Nucleated Red Blood Cells % 0 %; Platelet Count 230 10^3/cmm (130-400); Red Blood Count 4.02 10^6/uL (4.1-5.3); White Blood Count 6.7 10^3/uL (4.0-10.0)
[2021-12-30 13:54] LABS: Troponin(5th) Baseline 19 ng/L (0-10)
[2021-12-30 14:04] LABS: Alanine Aminotransferase 20 U/L (0-33); Albumin Level 3.3 g/dL (3.5-5.2); Alkaline Phosphatase 158 U/L (35-105); Anion Gap 12.7 (5-19); Aspartate Amino Transferase 14 U/L (0-32); Blood Urea Nitrogen 28 mg/dL (8-23); Calcium 9.3 mg/dL (8.5-10.5); Carbon Dioxide 31 mmol/L (22-29); Chloride 95 mmol/L (98-107); Globulin 4.2 g/dL (1.3-4.6); Glucose 232 mg/dL (65-115); NT Pro B Type Natriuretic Pept 360 pg/mL (0-125); Osmolality Calculated 291 mOsm/kg (285-295); Potassium 4.7 mmol/L (3.5-5.1); Sodium 134 mmol/L (136-145); Total Bilirubin 0.4 mg/dL (0.15-1.2); Total Protein 7.5 g/dL (6.6-8.7)
[2021-12-30 14:36] VITALS: O2SAT 93
--- NOTE | 2021-12-30 15:07 | ECG_ITS ---
[facility] Test Date: 2021-12-30 Pat Name: Deyanira Gonsales Department: Room: Gender: Female Case Assistant: : 1945 Requested By: Trung Calzada Order Number: [id number] Gregory MD: Caio Kitchen M.D. Measurements Intervals [place] Rate: 79 P: 79 ME: 143 QRS: 85 QRSD: 84 T: 78 QT: 362 QTc: 417 Interpretive Statements SINUS RHYTHM MINIMAL ST DEPRESSION [0.025+ mV ST DEPRESSION] Compared to ECG 12/30/2021 11:52:24 ST (T wave) deviation now present Electronically Signed On 12-31-2021 11:10:14 IMPROVEMENT ENGINEER by Caio Kitchen M.D. [email or web address]/[id number]
[2021-12-30 15:12] VITALS: O2SAT 92
[2021-12-30 15:35] LABS: Troponin 5 2HR 19.64 ng/L (0-10)
[2021-12-30 15:36] LABS: Troponin 5 2HR Delta 0.64 ABS# (0-10)
[2021-12-30 16:04] LABS: Lipase 43 U/L (13-60)
[2021-12-30] MEDS: promethazine 25 mg/mL SDV 1 mL IM (16:08)
[2021-12-30] MEDS: LORazepam 2 mg/mL INJ 1 mL IVP (16:08)
--- NOTE | 2021-12-30 17:56 | CTR_ITS ---
PROCEDURE INFORMATION: Exam: CTA Chest With Contrast Exam date and time: 12/30/2021 5:39 PM Age: 76 years old Clinical indication: Nausea and vomiting; Shortness of breath; Additional info: Dyspena, nausea and vomitting TECHNIQUE: Imaging protocol: Computed tomographic angiography of the chest with contrast. 3D rendering (Not supervised by radiologist): MIP and/or 3D reconstructed images were created by the technologist. Radiation optimization: All CT scans at this facility use at least one of these dose optimization techniques: automated exposure control; mA and/or kV adjustment per patient size (includes targeted exams where dose is matched to clinical indication); or iterative reconstruction. Contrast material: OMNIPAQUE 350; Contrast volume: 100 ml; Contrast route: INTRAVENOUS (IV); COMPARISON: 1. CT chest wo con [id number] 05/26/2021 2:[address] chest wo con [id number] 08/16/2020 8:[address] chest wo con [id number] 11/24/2016 2:35 PM RADIATION DOSE METRICS: Total DLP (mGy-cm): 1145.41 FINDINGS: Limitations: Study is somewhat limited by patient respiratory motion. Suboptimal/less than robust opacification the pulmonary arterial tree. Study somewhat limited due to streak artifact created by the patient being scanned with the arms at the sides. Pulmonary arteries: Allowing for some optimal timing of contrast injection no gross evidence of pulmonary embolism is identified. Aorta: There is mild atherosclerotic calcification of the aortic arch and descending thoracic aorta. There is no thoracic aortic aneurysm or dissection. Lungs: There is centrilobular and paraseptal emphysema in the apical regions more on the right than on the left. There is a stable 5 mm sized nodule right middle lobe (series 7, image number 207 not significantly changed compared with 11/24/2016. There is consolidation posterior medially at the right lung base with air bronchograms worrisome for pneumonia. There is consolidation in the lateral basal segment right lower lobe worrisome for pneumonia. Pleural spaces: Unremarkable. No pneumothorax. No pleural effusion. Heart: Within normal limits of size. No pericardial effusion. Lymph nodes: There is no evidence of lymphadenopathy. Bones/joints: Sternotomy wires and mediastinal surgical clips are present, consistent with previous coronary arterial bypass grafting. There is mild wedging of T3, chronic in appearance but new compared with 05/26/2021. There is chronic compression deformity superior endplate of T11 not changed since 2017. Soft tissues: Unremarkable. PROCEDURE INFORMATION: Exam: CT Abdomen And Pelvis With Contrast Exam date and time: 12/30/2021 5:39 PM Age: 76 years old Clinical indication: Nausea and vomiting; Shortness of breath; Additional info: Dyspena, nausea and vomitting TECHNIQUE: Imaging protocol: Computed tomography of the abdomen and pelvis with contrast. Radiation optimization: All CT scans at this facility use at least one of these dose optimization techniques: automated exposure control; mA and/or kV adjustment per patient size (includes targeted exams where dose is matched to clinical indication); or iterative reconstruction. Contrast material: OMNIPAQUE 350; Contrast volume: 100 ml; Contrast route: INTRAVENOUS (IV); COMPARISON: CT abdomen pelvis w con* [id number] 09/05/2019 3:19 PM RADIATION DOSE METRICS: Total DLP (mGy-cm): 1145.41 FINDINGS: Liver: Liver demonstrates nodular contours suggesting cirrhosis not significantly changed. Gallbladder and bile ducts: There is some calcific material within the gallbladder which may represent some tiny gallstones. Pancreas: The pancreas is normal. Spleen: The spleen is normal. Adrenal glands: Normal. No mass. Kidneys and ureters: There is moderate atrophy of the left kidney. There is some stranding and postsurgical change around the upper pole of the left kidney and the suspicious mass demonstrated on 09/05/2019 is no longer identified. Please correlate with the patient's interventional or surgical history. The right kidney is normal. There is no evidence of hydronephrosis. There is no evidence of renal or ureteral calcifications. Stomach and bowel: There is no evidence of colitis/diverticulitis. There is no evidence of intestinal obstruction. Appendix: Not identified Intraperitoneal space: There is no evidence of free intraperitoneal fluid. Vasculature: The aorta demonstrates moderate atherosclerotic calcification. There is no evidence of an abdominal aortic aneurysm. Lymph nodes: There is no evidence of lymphadenopathy. Urinary bladder: Unremarkable as visualized. Reproductive: Unremarkable as visualized. Bones/joints: There is old healed L1 compression fracture not changed from 09/04/2020. Degenerative changes in the lower lumbar spine are also stable. Soft tissues: There is a small 15 mm ill-defined subcutaneous soft tissue nodule on the right lower abdominal wall such as on image number 51 series 5 of uncertain significance, possibly the site of medication injection. There is also some mild thickening of the skin of the right lower quadrant of the abdomen unchanged from 09/04/2020 and some mild stranding in the subcutaneous fat on the left side of the abdomen which is a new finding which could also be related to subcutaneous injection. CT/CT angio chest w abd pel w con IMPRESSION: 1. Bilateral lower lobe pneumonia 2. Findings of emphysema as described 3. Right middle lobe pulmonary nodule stable since 2017. No further follow-up or evaluation is required. 4. No gross evidence of pulmonary embolism. IMPRESSION: 1. No acute findings in the abdomen or pelvis. 2. Previously seen suspicious mass left kidney no longer identified. 3. Possible small gallstones within the gallbladder.
[2021-12-30] MEDS: iohexol 350 mg/mL 500 mL Btl (per mL) IV (18:07)
[2021-12-30] MEDS: levofloxacin-dextrose 5 % 750 MG/150 ML PREMIX 100 MG IV (18:59)
--- NOTE | 2021-12-30 19:03 | ECG_ITS ---
[facility] Test Date: 2021-12-30 Pat Name: Deyanira Gonsales Department: Room: Gender: Female Beaming Machine Operator: : 1945 Requested By: Trung Calzada Order Number: [id number] Gregory MD: Caio Kitchen M.D. Measurements Intervals [place] Rate: 91 P: 79 CO: 142 QRS: 83 QRSD: 98 T: 80 QT: 364 QTc: 450 Interpretive Statements SINUS RHYTHM LOW QRS VOLTAGE IN PRECORDIAL LEADS [QRS DEFLECTION < 1.0 mV IN CHEST LEADS] Compared to ECG 12/30/2021 15:07:41 Low QRS voltage now present ST (T wave) deviation no longer present Electronically Signed On 12-31-2021 11:09:43 RN NAVIGATOR by Caio Kitchen M.D. [email or web address].[employer]/store/OM/[id number]
--- NOTE | 2021-12-30 19:20 | PM.HP ---
Providers/Chief Complaint Primary Care Provider: Alem Auguste Chief Complaint: sob, low ox History of Present Illness Deyanira Gonsales is a 76 year old female with a past medical history of hypertension, insulin-dependent type 2 diabetes mellitus, coronary artery disease, COPD on 2 L, depression, history of CVA who was brought in to [facility] for evaluation of generalized weakness, shortness of breath, nausea, vomiting. Patient has received Ativan, promethazine, is quite drowsy, she is alert to person, not to place, not to time, she can follow commands, but falls back asleep, blood pressure 105/64, pulse 66, respiratory rate 16, temperature 97.7, saturating 92% on 4 L. When I asked her what why she is here in the hospital she tells me her left shoulder is hurting her she denies any falls, she does not particular elaborate on why it is hurting, but has a left proximal humeral fracture is placed in a splint. Which according to documentation was a fall roughly 48 hours ago. She denies any abdominal pain but does report nausea, vomiting, reports diarrhea. She has had several liquidy bowel movements in the emergency room. Does report decreased appetite and weakness. Review of Systems General: Reports: ROS unobtainable due to mental status Medications/Allergies Home Medications Medication Instructions Recorded Confirmed Last Taken Type citalopram 10 mg tablet 10 mg PO DAILY 06/20/19 12/30/21 12/30/21 History duloxetine 60 mg capsule,delayed 60 mg PO DAILY 06/20/19 12/30/21 12/30/21 History release sprinkle liraglutide 0.6 mg/0.1 mL (18 mg/3 1.8 mg SUBCUT DAILY 06/20/19 12/30/21 12/30/21 History mL) subcutaneous pen injector (Victoza 2-Manjinder) metformin 1,000 mg tablet 1,000 mg PO DAILY 06/20/19 12/30/21 12/30/21 History aspirin 81 mg tablet,delayed 81 mg PO DAILY #30 tabs 06/25/19 12/30/21 12/30/21 Rx release (Farzana Low Dose Aspirin) atorvastatin 40 mg tablet 40 mg PO QPM #30 tabs 06/25/19 12/30/21 12/29/21 Rx methocarbamol 500 mg tablet 500 mg PO QID PRN Muscle Spasms 06/25/19 12/30/21 Unknown Rx #14 tabs pantoprazole 40 mg tablet,delayed 40 mg PO BID #90 tabs 06/25/19 12/30/21 12/30/21 Rx release insulin glargine 100 unit/mL 55 unit SUBCUT QPM 12/12/21 12/30/21 12/29/21 History subcutaneous solution (Lantus U-100 Insulin) insulin lispro 100 unit/mL 16 unit SUBCUT TID 12/12/21 12/30/21 12/30/21 History subcutaneous pen ketoconazole 2 % shampoo 1 applic topical DAILY 12/12/21 12/30/21 Unknown History polyethylene glycol 3350 17 gram 17 g PO DAILY PRN Constipation 12/12/21 12/30/21 Unknown History oral powder packet (Miralax) budesonide 180 mcg/actuation 1 inh inhalation BID #1 ea 12/20/21 12/30/21 12/30/21 Rx breath activated powder inhaler (Pulmicort Flexhaler) ferrous gluconate 324 mg (37.5 mg 324 mg PO BIDWM #60 tabs 12/20/21 12/30/21 Unknown Rx iron) tablet hydrocodone 5 mg-acetaminophen 325 1 tab PO Q8H PRN pain #20 tabs 12/28/21 12/30/21 12/29/21 Rx mg tablet ondansetron 4 mg disintegrating 4 mg PO TID PRN nausea and 12/28/21 12/30/21 Unknown Rx tablet vomiting #15 tabs sennosides 8.6 mg tablet (Natural 8.6 mg PO DAILY PRN constipation 12/28/21 12/30/21 Unknown Rx Senna Laxative) #20 tabs acetaminophen 325 mg capsule 650 mg PO QID PRN Pain 12/30/21 12/30/21 12/30/21 History (Tylenol) Allergies Allergy/AdvReac Type Severity Reaction Status Date / Time acetaminophen [From Vicodin] Allergy ADR-Confusi Verified 12/30/21 14:00 on cephalexin Allergy ALGY-Hives Verified 12/30/21 14:00 fluticasone Allergy Unknown Verified 12/30/21 14:00 [From Advair Diskus] hydrocodone [From Vicodin] Allergy ADR-Confusi Verified 12/30/21 14:00 on nitrofurantoin Allergy ALGY-Hives Verified 12/30/21 14:00 [From Macrobid] salmeterol Allergy Unknown Verified 12/30/21 14:00 [From Advair Diskus] PFSH Acute PFSH: Medical History CKD (chronic kidney disease) stage 3, GFR 30-59 ml/min Coffee ground emesis Episode of emesis with what was thought to be perhaps coffee-ground on appearance, gastric occult was noted positive, although this is nonspecific. Was started on PPI. Hemoglobin remained stable. Please follow-up hemoglobin. Discontinue PPI as appropriate depending on symptoms, blood count level. Consider whether upper endoscopy depending on clinical course. COPD (chronic obstructive pulmonary disease) Chronically uses 2 L per nasal cannula Coronary artery disease Depression Diabetes mellitus type 2 in obese Dizziness Thought initially perhaps labyrinthitis, however, no noted episodes here, however, with noted episodes of soft blood pressure, as well as bradycardia, and does appear that her metoprolol dose is too high. At this time will decrease to 50 mg twice a day. Please monitor symptoms. Strict fall precautions. Consider additional work-up in case symptoms return/persist. Left kidney mass Incidentally noted 1.6 cm hyperdense mass in posterior mid left kidney. Not seen on prior studies. Please follow-up three-phase CT evaluation. Nephrolithiasis Peripheral neuropathy Stroke Incidentally noted possible subacute CVA on CT of the head and right frontal temporal region. Please obtain additional assessment for risk factors, and help her manage already known severe risk factors including smoking, diabetes, vascular disease. She is referred for MRI of the brain. She is restarted on aspirin as hemoglobin has been stable. Statin is added. Please consider additional evaluation by carotid Doppler as the last 1 was unremarkable but was done back in 2008, as well as referral to neurology. Surgical History History of ankle surgery History of appendectomy History of bladder surgery History of carpal tunnel surgery History of cataract surgery History of shoulder surgery Hx of CABG 2004 Family History Other Dementia Social History Smoking and tobacco status: current every day smoker Alcohol intake: never History of recent travel: No Vitals/I&O/Wt Last Vital Signs Temp 97.7 F 12/30/21 13:12 Pulse 66 12/30/21 13:12 Resp 16 12/30/21 13:12 BP 105/64 12/30/21 13:12 Pulse Ox 92 12/30/21 15:12 O2 Del Method 12/30/21 15:12 O2 Flow Rate 3.5 12/30/21 15:12 Weight last 48 hrs Weight 68.039 kg Physical Exam Const: COMMON NORMALS: no acute distress EXAM LIMITATIONS: altered mental status ORIENTATION/CONSCIOUSNESS: Yes awake and Yes oriented to person; not oriented to place and not oriented to time HENMT: COMMON NORMALS: normocephalic HEAD & SCALP: normocephalic Eye: COMMON NORMALS: Equal, round and reactive pupils present and EOMs intact bilaterally Chest: OTHER: Left shoulder in a sling Resp: COMMON NORMALS: normal respiratory effort, No retractions, No use of accessory muscles and clear to auscultation bilaterally AUSCULTATION: clear to auscultation bilaterally Cardio: COMMON NORMALS: regular rate, regular rhythm, S1 normal heart sound present and S2 normal heart sound present RATE: regular rate RHYTHM: regular rhythm HEART SOUNDS: S1 normal heart sound present and S2 normal heart sound present GI: COMMON NORMALS: Normal to inspection, nondistended, normoactive bowel sounds present, Soft to palpation, non-tender and no masses Extremity: COMMON NORMALS: no pedal edema Neuro: OTHER: Does not follow neurologic testing Data 12/30/21 13:10 12/30/21 13:10 Micro: Microbiology 12/30/21 13:20 Blood Culture - Preliminary Blood SPECIMEN COLLECTED 12/30/21 13:10 Blood Culture - Preliminary Blood SPECIMEN COLLECTED A&P Assessment and plan (1) Fracture of head of humerus: (2) CKD (chronic kidney disease) stage 3, GFR 30-59 ml/min: (3) Hypoxia: (4) Diabetes mellitus type 2 in obese: (5) Coronary artery disease: (6) COPD (chronic obstructive pulmonary disease): (7) Pneumonia: (8) Encephalopathy acute: (9) Nausea vomiting and diarrhea: Plan bilateral lower lobe pneumonia -Seen on CT of the chest -Pro-Christ, CRP pending -Blood cultures, sputum cultures, -Flu, COVID -She is up to 4 L, lungs sound clear -However given encephalopathy we will treat her with vancomycin, Zosyn -If MRSA nares is negative will de-escalate off vancomycin -Broad-spectrum coverage for healthcare associate pneumonia as she was here in the hospital 2 weeks ago -Full code -Lovenox for DVT prophylaxis Nausea, vomiting, diarrhea -Etiology unclear -Gentle IV hydration at 50 cc an hour to avoid fluid overload -CT scan of the abdomen pelvis did show stones in the gallbladder she is not tender in the right upper quadrant, no significant bili elevation no significant transaminitis alk phos is elevated -We will consider doing a right upper quadrant ultrasound if she does not improve Acute encephalopathy -Likely from Ativan, promethazine -Potentially also from bilateral pneumonia -Monitor mentation closely -Neurochecks, aspiration precautions Type 2 diabetes mellitus, insulin-dependent -Decrease Lantus to 20 units every afternoon -Marginal sliding scale History of COPD -Not in exacerbation she does complain shortness of breath but no wheezing on exam -We will hold off on steroids for now -Budesonide, DuoNeb Diastolic CHF does not look fluid overloaded, hold off on Lasix CKD monitor creatinine Attestations Medical Necessity Statement*: Patient requires hospitalization, inpatient, greater than 2 midnights, for bilateral lower lobe pneumonia encephalopathy, nausea, vomiting, diarrhea Coding Level of Care Code Acute Mine Patrol for Chg Fwd Diagnoses Fracture of head of humerus S42.293A CKD (chronic kidney disease) stage 3, GFR 30-59 ml/min N18.30 Hypoxia R09.02 Diabetes mellitus type 2 in obese E11.69; E66.9 Coronary artery disease I25.10 COPD (chronic obstructive pulmonary disease) J44.9 Pneumonia J18.9 Encephalopathy acute G93.40 Nausea vomiting and diarrhea R11.2; R19.7
[2021-12-30 19:54] LABS: Lactate (Lactic Acid level) 1.2 mmol/L (0.5-2.2)
[2021-12-30 19:56] LABS: C Reactive Protein 84.9 mg/L (0.0-4.9)
[2021-12-30 20:00] LABS: Procalcitonin 0.27 ng/mL (0-0.5)
--- NOTE | 2021-12-30 20:46 | PC.NURSE ---
Patient was educated on the need for keeping her oxygen on. Patient was placed on continuous bedside pulse oxygen monitoring.
[2021-12-30 20:48] VITALS: BP 123/72; PULSE 88; RESP 20; TEMP 36.6; O2SAT 97
[2021-12-30 21:21] LABS: Glucose Point of Care 339 mg/dL (70-110)
[2021-12-30 21:52] LABS: Influenza A by IFA negative (Negative); Influenza B by IFA negative (Negative)
--- NOTE | 2021-12-30 22:40 | PC.NURSE ---
UA unable to be collected at this time, stool contaminated the potential specimen.
[2021-12-30 22:44] LABS: Estmated Average Glucose 237; Hemoglobin A1C 9.9 % (4.0-6.0)
[2021-12-30] MEDS: sodium chloride 0.9% 1,000 ML 50 ML IV (22:54)
[2021-12-30] MEDS: vancomycin 1,000 MG in sodium chloride 0.9% 250 ML 250 MG IV (22:54)
[2021-12-30 22:57] LABS: Adenovirus Not Detected (NOT DETECT); Chlamydia Pneumoniae Not Detected (NOT DETECT); Coronavirus 229E,HKU1,NL63,OC4 Not Detected (NOT DETECT); Human Metapneumovirus Not Detected (NOT DETECT); Human Rhinovirus/Enterovirus Not Detected (NOT DETECT); Influenza A Not Detected (NOT DETECT); Influenza A H1 Not Detected (NOT DETECT); Influenza A H1-2009 Not Detected (NOT DETECT); Influenza A H3 Not Detected (NOT DETECT); Influenza B Not Detected (NOT DETECT); Mycoplasma Pneumoniae Not Detected (NOT DETECT); Parainfluenza Virus Type 1 Not Detected (NOT DETECT); Parainfluenza Virus Type 2 Not Detected (NOT DETECT); Parainfluenza Virus Type 3 Not Detected (NOT DETECT); Parainfluenza Virus Type 4 Not Detected (NOT DETECT); Respiratory Syncytial Virus A Not Detected (NOT DETECT); Respiratory Syncytial Virus B Not Detected (NOT DETECT); SARS-COV-2 Not Detected (NOT DETECT)
[2021-12-30] MEDS: enoxaparin 40 mg/0.4 mL Syringe SUBCUT (23:21)
[2021-12-31] VITALS (15 sets, daily range): BP systolic 108–136; BP diastolic 61–71; PULSE 71–102; RESP 16–22; TEMP 36.4–37; O2SAT 90–99
[2021-12-31] MEDS: piperacillin-tazobactam 3.375 GM in sodium chloride 0.9% (plus) 50 ML IV ×4 (00:02→22:46)
[2021-12-31 00:40] LABS: Add Urine Microscopic? NO; Charge for UA Resulting for Rev
[2021-12-31 01:17] LABS: Bilirubin Urine Neg (Negative); Blood Urine Neg (Negative); Glucose Urine UA 4+ (Normal); Ketones Urine Negative (Negative); Leukocyte Esterase Urine Negative (Negative); Nitrate Urine Negative (Negative); Protein Urine Neg (Negative); Specific Gravity, Urine 1.015 (1.005-1.030); Urine Appearance Clear (CLEAR); Urine Color Yellow (Yellow); Urobilinogen Urine Neg (Negative); pH Urine 5 (5-7)
[2021-12-31 06:01] LABS: Basophils % 0.3 %; Eosinophils # 0.1 10^3/uL (0.0-0.8); Eosinophils % 0.9 %; Hematocrit 37.4 % (37.0-47.0); Hemoglobin 11.2 g/dL (11.5-15.3); Lymphocytes # 0.8 10^3/uL (0.8-4.8); Mean Corpuscular HGB Conc 29.9 g/dL (30.0-36.0); Mean Corpuscular Hemoglobin 27.9 pg (28.0-34.0); Mean Corpuscular Volume 93.3 fl (81-99); Mean Platelet Volume 8.9 fL (7.4-10.4); Monocytes # 0.6 10^3/uL (0.2-0.9); Monocytes % 7.7 %; Neutrophils # 5.88 10^3/uL (1.8-7.7); Neutrophils % 79.7 %; Nucleated Red Blood Cells % 0 %; Platelet Count 230 10^3/cmm (130-400); Red Blood Count 4.01 10^6/uL (4.1-5.3); Red Cell Distribution Width 15.3 % (12.1-15.1); White Blood Count 7.4 10^3/uL (4.0-10.0)
[2021-12-31 06:30] LABS: Anion Gap 12.2 (5-19); Blood Urea Nitrogen 25 mg/dL (8-23); Carbon Dioxide 31 mmol/L (22-29); Chloride 100 mmol/L (98-107); Glucose 286 mg/dL (65-115); Magnesium 1.6 mg/dL (1.7-2.3); NT Pro B Type Natriuretic Pept 193 pg/mL (0-125); Osmolality Calculated 301 mOsm/kg (285-295); Potassium 5.2 mmol/L (3.5-5.1); Sodium 138 mmol/L (136-145); Thyroid Stimulating Hormone 0.61 uIU/mL (0.27-4.20)
[2021-12-31 06:32] LABS: Glucose Point of Care 294 mg/dL (70-110)
[2021-12-31] MEDS: ipratropium-albuterol 3 mL Neb INHALATION ×3 (08:32→15:25)
[2021-12-31] MEDS: pantoprazole DR 40 mg Tablet PO ×2 (09:21→17:51)
[2021-12-31] MEDS: HYDROcodone-acetaminophen 5-325 mg Tablet 1 TAB PO ×2 (09:21→20:41)
[2021-12-31] MEDS: citalopram 20 mg Tablet 10 MG PO (09:21)
[2021-12-31] MEDS: ferrous gluconate 324 mg Tablet PO ×2 (09:21→17:51)
[2021-12-31] MEDS: aspirin 81 mg EC Tablet PO (09:21)
[2021-12-31] MEDS: insulin lispro 100 unit/1 mL SUBCUT ×3 (09:22→17:51)
[2021-12-31 11:27] LABS: Glucose Point of Care 330 mg/dL (70-110)
[2021-12-31] MEDS: acetaminophen 325 mg Tablet 650 MG PO (15:31)
--- NOTE | 2021-12-31 16:22 | PM.PN ---
Subjective Subjective: Afebrile, hemodynamically stable, no acute interim events. Denies any new complaints today. Medications: Reviewed: Yes Vitals/I&O/Wt Last Vital Signs Temp 97.6 F 12/31/21 16:00 Pulse 102 H 12/31/21 16:00 Resp 16 12/31/21 16:00 BP 136/70 12/31/21 16:00 Pulse Ox 92 12/31/21 16:00 O2 Del Method 12/31/21 16:00 O2 Flow Rate 2 12/31/21 15:25 FiO2 5 12/31/21 03:23 12/31/21 12/31/21 12/31/21 06:59 14:59 22:59 Intake Total 300 / 450 770 / 770 Output Total 450 / 450 Balance -150 / 0 770 / 770 Weight last 48 hrs Weight 68.039 kg Physical Exam Narrative: General: Asleep initially at the time of examination, woken up, alert awake,appears deconditioned. HEENT: PERRLA, pupils bilaterally equal and reactive, pallors not present Chest: Normal vesicular breath sounds, no added sounds, equal good air entry bilaterally CVS: S1-S2 regular, no murmurs, no tachycardia, no gallops, no rubs Abdomen: Soft, nontender, no organomegaly, bowel sounds present Data 12/31/21 05:33 12/31/21 05:33 Micro: Microbiology 12/30/21 13:20 Blood Culture - Preliminary Blood NEGATIVE TO DATE 12/30/21 13:10 Blood Culture - Preliminary Blood NEGATIVE TO DATE 12/30/21 20:55 MRSA Culture - Final Nose 12/31/21 00:30 Bacterial Antigens - Final Urine,Voided A&P Assessment and plan (1) Fracture of head of humerus: (2) CKD (chronic kidney disease) stage 3, GFR 30-59 ml/min: (3) Hypoxia: (4) Diabetes mellitus type 2 in obese: (5) Coronary artery disease: (6) COPD (chronic obstructive pulmonary disease): (7) Pneumonia: (8) Encephalopathy acute: (9) Nausea vomiting and diarrhea: Plan Bilateral lower lobe pneumonia -Seen on CT of the chest -Pro-Christ negative, CRP elevated -Blood cultures, sputum cultures pending -Flu, COVID negative Currently on treatment with vancomycin, Zosyn empirically -Broad-spectrum coverage for healthcare associate pneumonia as she was here in the hospital 2 weeks ago -Full code -Lovenox for DVT prophylaxis Nausea, vomiting, diarrhea -Etiology unclear -Gentle IV hydration at 50 cc an hour to avoid fluid overload -CT scan of the abdomen pelvis did show stones in the gallbladder she is not tender in the right upper quadrant, no significant bili elevation no significant transaminitis alk phos is elevated Acute encephalopathy -Likely from Ativan, promethazine Currently improving -Neurochecks, aspiration precautions Type 2 diabetes mellitus, insulin-dependent -Increase Lantus to 25 units every afternoon given uncontrolled blood sugars -Marginal sliding scale History of COPD -Not in exacerbation she does complain shortness of breath but no wheezing on exam -We will hold off on steroids for now -Budesonide, DuoNeb scheduled inhalation Diastolic CHF does not look fluid overloaded, hold off on Lasix, however discontinue IV fluids CKD monitor creatinine Attestations Medical Necessity Statement*: Needs continued admission for IV antibiotics, bilateral pneumonia Coding Level of Care Code Acute Transportation Program Director for Chg Fwd Diagnoses Fracture of head of humerus S42.293A CKD (chronic kidney disease) stage 3, GFR 30-59 ml/min N18.30 Hypoxia R09.02 Diabetes mellitus type 2 in obese E11.69; E66.9 Coronary artery disease I25.10 COPD (chronic obstructive pulmonary disease) J44.9 Pneumonia J18.9 Encephalopathy acute G93.40 Nausea vomiting and diarrhea R11.2; R19.7
--- NOTE | 2021-12-31 16:22 | PC.PT ---
patient declined PT eval x 2 today, stated she was hungry just prior to lunch, and that she was sleeping well this afternoon and requested to wait until am. Nurse Amanda was notified and agreed that pt needed to sleep.
[2021-12-31 17:15] LABS: Glucose Point of Care 324 mg/dL (70-110)
[2021-12-31] MEDS: insulin glargine 100 units/1 mL 25 UNIT SUBCUT (17:50)
[2021-12-31] MEDS: atorvastatin 40 mg Tablet PO (17:51)
[2021-12-31 20:34] LABS: Glucose Point of Care 387 mg/dL (70-110)
[2021-12-31] MEDS: enoxaparin 40 mg/0.4 mL Syringe SUBCUT (21:30)
[2021-12-31] MEDS: vancomycin 1,000 MG in sodium chloride 0.9% 250 ML 250 MG IV (21:31)
[2022-01-01] VITALS (13 sets, daily range): BP systolic 102–139; BP diastolic 57–78; PULSE 72–105; RESP 14–18; TEMP 36.7–37.7; O2SAT 89–94
[2022-01-01 05:38] LABS: Basophils % 0.3 %; Eosinophils # 0.2 10^3/uL (0.0-0.8); Eosinophils % 2.4 %; Hematocrit 34.5 % (37.0-47.0); Hemoglobin 10.2 g/dL (11.5-15.3); Lymphocytes % 13.9 %; Mean Corpuscular HGB Conc 29.6 g/dL (30.0-36.0); Mean Corpuscular Hemoglobin 28.3 pg (28.0-34.0); Mean Corpuscular Volume 95.6 fl (81-99); Mean Platelet Volume 8.9 fL (7.4-10.4); Monocytes # 0.7 10^3/uL (0.2-0.9); Monocytes % 9.2 %; Neutrophils # 5.32 10^3/uL (1.8-7.7); Neutrophils % 73.6 %; Nucleated Red Blood Cells % 0 %; Platelet Count 220 10^3/cmm (130-400); Red Blood Count 3.61 10^6/uL (4.1-5.3); Red Cell Distribution Width 15.3 % (12.1-15.1); White Blood Count 7.2 10^3/uL (4.0-10.0)
[2022-01-01 05:58] LABS: Alanine Aminotransferase 16 U/L (0-33); Albumin Level 2.8 g/dL (3.5-5.2); Alkaline Phosphatase 125 U/L (35-105); Anion Gap 12.4 (5-19); Aspartate Amino Transferase 13 U/L (0-32); Blood Urea Nitrogen 20 mg/dL (8-23); Calcium 9.2 mg/dL (8.5-10.5); Carbon Dioxide 28 mmol/L (22-29); Chloride 96 mmol/L (98-107); Glucose 277 mg/dL (65-115); Osmolality Calculated 287 mOsm/kg (285-295); Potassium 4.4 mmol/L (3.5-5.1); Sodium 132 mmol/L (136-145); Total Bilirubin 0.8 mg/dL (0.15-1.2); Total Protein 6.8 g/dL (6.6-8.7)
[2022-01-01] MEDS: piperacillin-tazobactam 3.375 GM in sodium chloride 0.9% (plus) 50 ML IV ×3 (06:39→22:35)
[2022-01-01 06:42] LABS: Glucose Point of Care 298 mg/dL (70-110)
[2022-01-01] MEDS: HYDROcodone-acetaminophen 5-325 mg Tablet 1 TAB PO ×2 (09:00→17:45)
[2022-01-01] MEDS: pantoprazole DR 40 mg Tablet PO ×2 (09:00→17:44)
[2022-01-01] MEDS: ferrous gluconate 324 mg Tablet PO ×2 (09:00→17:44)
[2022-01-01] MEDS: aspirin 81 mg EC Tablet PO (09:00)
[2022-01-01] MEDS: insulin lispro 100 unit/1 mL SUBCUT ×3 (09:00→17:45)
[2022-01-01] MEDS: citalopram 20 mg Tablet 10 MG PO (09:00)
[2022-01-01] MEDS: ipratropium-albuterol 3 mL Neb INHALATION ×4 (10:14→20:31)
[2022-01-01] MEDS: budesonide 0.5 mg/2 mL Neb INHALATION (10:14)
[2022-01-01 11:58] LABS: Glucose Point of Care 377 mg/dL (70-110)
[2022-01-01] MEDS: acetaminophen 325 mg Tablet 650 MG PO (13:01)
--- NOTE | 2022-01-01 15:59 | P.PN_ITS ---
Subjective Subjective: Complaining of pain over the left shoulder joint. This is at the site of her fracture. Some progressive bruising is also noted. Medications: Reviewed: Yes Vitals/I&O/Wt Last Vital Signs Temp 98.1 F 01/01/22 15:54 Pulse 94 01/01/22 15:54 Resp 16 01/01/22 15:54 BP 102/68 01/01/22 15:54 Pulse Ox 91 01/01/22 15:54 O2 Del Method 01/01/22 12:00 O2 Flow Rate 2 01/01/22 12:00 FiO2 5 12/31/21 03:23 01/01/22 01/01/22 01/01/22 06:59 14:59 22:59 Intake Total 410 / 1840 890 / 890 Output Total 1150 / 2150 200 / 200 Balance -740 / -310 890 / 890 -200 / 690 Physical Exam Narrative: General: No acute distress, AO x3 HEENT: PERRLA, pupils bilaterally equal and reactive, pallors not present Chest: Crackles to auscultation bilaterally CVS: S1-S2 regular, no murmurs, no tachycardia, no gallops, no rubs Abdomen: Soft, nontender, no organomegaly, bowel sounds present Neuro: No focal deficits, no facial deformity, AO x3, power 5/5 in all limbs Extremities: minimal LE edema noted today Data 01/01/22 04:55 01/01/22 04:55 Micro: Microbiology 12/30/21 13:20 Blood Culture - Preliminary Blood NEGATIVE TO DATE 12/30/21 13:10 Blood Culture - Preliminary Blood NEGATIVE TO DATE 12/30/21 20:55 MRSA Culture - Final Nose A&P Assessment and plan (1) Fracture of head of humerus: (2) CKD (chronic kidney disease) stage 3, GFR 30-59 ml/min: (3) Hypoxia: (4) Diabetes mellitus type 2 in obese: (5) Coronary artery disease: (6) COPD (chronic obstructive pulmonary disease): (7) Pneumonia: (8) Encephalopathy acute: (9) Nausea vomiting and diarrhea: Plan Bilateral lower lobe pneumonia -Seen on CT of the chest -Pro-Christ negative, CRP elevated -Blood cultures, sputum cultures unrevealing thus far -Flu, COVID negative Suspect that her persisting changes on CT of her chest represent radiological lag from her recent pneumonia, however elevated CRP and some new symptoms cannot rule out the possibility of persisting infection. Currently on treatment with vancomycin, Zosyn empirically, will aim for a 5-day course. -Broad-spectrum coverage for healthcare associate pneumonia as she was here in the hospital 2 weeks ago -Full code -Lovenox for DVT prophylaxis Nausea, vomiting, diarrhea -Etiology unclear now resolved -CT scan of the abdomen pelvis did show stones in the gallbladder she is not tender in the right upper quadrant, no significant bili elevation no significant transaminitis alk phos is elevated Acute encephalopathy -Likely from Ativan, promethazine Now completely resolved Type 2 diabetes mellitus, insulin-dependent -Increase Lantus to 25 units every afternoon given uncontrolled blood sugars -Marginal sliding scale History of COPD -Not in exacerbation she does complain shortness of breath but no wheezing on exam Noted to be slightly more tachypneic compared to yesterday's exam. This could be as a result of pain, however there are interval development of crackles on exam and also lower extremity edema. Her last echocardiogram shows no evidence of systolic or diastolic dysfunction, however pulmonary hypertension was noted. Trial of Lasix 40 mg IV today, monitor urine output and clinic for clinical improvement. -Budesonide, DuoNeb scheduled inhalation Humerus fracture Orthopedics has been consulted because of ongoing pain. Resume her home dose of duloxetine Added as needed Toradol + lidocaine patch to shoulder for symptomatic pain management. CKD monitor creatinine Attestations Medical Necessity Statement*: Iv lasix today, optimize pain control, orthopedics consult Coding Level of Care Code Acute Application Development Director for [facility] Fwd Diagnoses Fracture of head of humerus S42.293A CKD (chronic kidney disease) stage 3, GFR 30-59 ml/min N18.30 Hypoxia R09.02 Diabetes mellitus type 2 in obese E11.69; E66.9 Coronary artery disease I25.10 COPD (chronic obstructive pulmonary disease) J44.9 Pneumonia J18.9 Encephalopathy acute G93.40 Nausea vomiting and diarrhea R11.2; R19.7
[2022-01-01] MEDS: FUROsemide 10 mg/mL SDV 4mL 40 MG IVP (16:39)
[2022-01-01 17:06] LABS: Glucose Point of Care 242 mg/dL (70-110)
[2022-01-01] MEDS: atorvastatin 40 mg Tablet PO (17:45)
[2022-01-01] MEDS: insulin glargine 100 units/1 mL 25 UNIT SUBCUT (17:45)
--- NOTE | 2022-01-01 18:18 | P.CONIM_ITS ---
Providers/Reason For Consult Consulting Physician/Specialty*: Joana WOOD; orthopedic surgeon Reason for Consult*: Left proximal humerus fracture Attending Physician: Rae Avalos MD Primary Care Provider: Alem Auguste History of Present Illness History of Present Illness Deyanira Gonsales is a 76 year old female who sustained a fall on 12/28/2021 with resulting left shoulder pain. She was seen in our emergency room where radiographs revealed a fracture of the proximal humerus. Ms. Gonsales returned on 12/30/2021 complaining of left shoulder pain. He was admitted to the medicine service on the time with complaints of generalized weakness shortness of breath nausea and vomiting. He was diagnosed with bilateral lower lobe pneumonia admitted to the hospital. She has had continued pain in her left shoulder I been asked to see in see the patient Medications/Allergies Home Medications Medication Instructions Recorded Confirmed Last Taken Type citalopram 10 mg tablet 10 mg PO DAILY 06/20/19 12/30/21 12/30/21 History duloxetine 60 mg capsule,delayed 60 mg PO DAILY 06/20/19 12/30/21 12/30/21 Hist ory release sprinkle liraglutide 0.6 mg/0.1 mL (18 mg/3 1.8 mg SUBCUT DAILY 06/20/19 12/30/21 12/30/21 History mL) subcutaneous pen injector (Victoza 2-Manjinder) metformin 1,000 mg tablet 1,000 mg PO DAILY 06/20/19 12/30/21 12/30/21 History aspirin 81 mg tablet,delayed 81 mg PO DAILY #30 tabs 06/25/19 12/30/21 12/30/21 Rx release (Farzana Low Dose Aspirin) atorvastatin 40 mg tablet 40 mg PO QPM #30 tabs 06/25/19 12/30/21 12/29/21 Rx methocarbamol 500 mg tablet 500 mg PO QID PRN Muscle Spasms 06/25/19 12/30/21 Unknown Rx #14 tabs pantoprazole 40 mg tablet,delayed 40 mg PO BID #90 tabs 06/25/19 12/30/21 12/30/21 Rx release insulin glargine 100 unit/mL 55 unit SUBCUT QPM 12/12/21 12/30/21 12/29/21 History subcutaneous solution (Lantus U-100 Insulin) insulin lispro 100 unit/mL 16 unit SUBCUT TID 12/12/21 12/30/21 12/30/21 History subcutaneous pen ketoconazole 2 % shampoo 1 applic topical DAILY 12/12/21 12/30/21 Unknown Histor y polyethylene glycol 3350 17 gram 17 g PO DAILY PRN Constipation 12/12/21 12/30/21 Unknown History oral powder packet (Miralax) budesonide 180 mcg/actuation 1 inh inhalation BID #1 ea 12/20/21 12/30/21 12/30/21 Rx breath activated powder inhaler (Pulmicort Flexhaler) ferrous gluconate 324 mg (37.5 mg 324 mg PO BIDWM #60 tabs 12/20/21 12/30/21 Unknown Rx iron) tablet hydrocodone 5 mg-acetaminophen 325 1 tab PO Q8H PRN pain #20 tabs 12/28/21 12/30/21 12/29/21 Rx mg tablet ondansetron 4 mg disintegrating 4 mg PO TID PRN nausea and 12/28/21 12/30/21 Unknown Rx tablet vomiting #15 tabs sennosides 8.6 mg tablet (Natural 8.6 mg PO DAILY PRN constipation 12/28/21 12/30/21 Unknown Rx Senna Laxative) #20 tabs acetaminophen 325 mg capsule 650 mg PO QID PRN Pain 12/30/21 12/30/21 12/30/21 History (Tylenol) Allergies Allergy/AdvReac Type Severity Reaction Status Date / Time acetaminophen [From Vicodin] Allergy ADR-Confusi Verified 12/30/21 14:00 on cephalexin Allergy ALGY-Hives Verified 12/30/21 14:00 fluticasone Allergy Unknown Verified 12/30/21 14:00 [From Advair Diskus] hydrocodone [From Vicodin] Allergy ADR-Confusi Verified 12/30/21 14:00 on nitrofurantoin Allergy ALGY-Hives Verified 12/30/21 14:00 [From Macrobid] salmeterol Allergy Unknown Verified 12/30/21 14:00 [From Advair Diskus] Current Medications Generic Name Dose Route Start Last Admin Trade Name Freq PRN Reason Stop Dose Admin Acetaminophen 650 mg 12/30/21 20:48 01/01/22 13:01 Acetaminophen 325 Mg Tablet PO 650 mg Q6H PRN Administration Mild/Mod Pain Or Temp >/= 101 Hydrocodone Bitart/Acetaminophen 1 tab 12/30/21 20:48 01/01/22 17:45 Hydrocodone-Acetaminophen 5-325 Mg Tablet PO 1 tab Q8H PRN Administration pain Albuterol/Ipratropium 3 ml 12/30/21 20:48 01/01/22 16:04 Ipratropium-Albuterol 3 Ml Neb INHALATION 3 ml QID.RESPIRATORY KARI Administration Aspirin 81 mg 12/31/21 09:00 01/01/22 09:00 Aspirin 81 Mg Ec Tablet PO 81 mg DAILY KARI Administration Atorvastatin Calcium 40 mg 12/31/21 18:00 01/01/22 17:45 Atorvastatin 40 Mg Tablet PO 40 mg QPM KARI Administration Budesonide 0.5 mg 12/31/21 08:00 01/01/22 10:14 Budesonide 0.5 Mg/2 Ml Neb INHALATION 0.5 mg DAILY.RESPIRATORY KARI Administration Citalopram Hydrobromide 10 mg 12/31/21 09:00 01/01/22 09:00 Citalopram 20 Mg Tablet PO 10 mg DAILY KARI Administration Enoxaparin Sodium 40 mg 12/30/21 22:00 12/31/21 21:30 Enoxaparin 40 Mg/0.4 Ml Syringe SUBCUT 40 mg Q24H KARI Administration Ferrous Gluconate 324 mg 12/31/21 08:00 01/01/22 17:44 Ferrous Gluconate 324 Mg Tablet PO 324 mg BIDWM KARI Administration Piperacillin Sod/Tazobactam 50 mls @ 12.5 mls/hr 12/30/21 22:00 01/01/22 15:08 Sod 3.375 gm/ Sodium Chloride IV 12.5 mls/hr Q8H KARI Administration Vancomycin HCl 1,000 mg/ 250 mls @ 250 mls/hr 12/30/21 22:00 12/31/21 22:47 Sodium Chloride IV Infused Q24H KARI Infusion Insulin Glargine 25 unit 12/31/21 18:00 01/01/22 17:45 Insulin Glargine 100 Units/1 Ml SUBCUT 25 unit QPM KARI Administration Insulin Human Lispro 0 unit 12/31/21 08:00 01/01/22 17:45 Insulin Lispro 100 Unit/1 Ml SUBCUT 8 unit TIDWM KARI Administration Protocol Pantoprazole Sodium 40 mg 12/31/21 09:00 01/01/22 17:[address] 40 Mg Tablet PO 40 mg BID KARI Administration PFSH Acute PFSH: Medical History CKD (chronic kidney disease) stage 3, GFR 30-59 ml/min Coffee ground emesis Episode of emesis with what was thought to be perhaps coffee-ground on appearance, gastric occult was noted positive, although this is nonspecific. Was started on PPI. Hemoglobin remained stable. Please follow-up hemoglobin. Discontinue PPI as appropriate depending on symptoms, blood count level. Consider whether upper endoscopy depending on clinical course. COPD (chronic obstructive pulmonary disease) Chronically uses 2 L per nasal cannula Coronary artery disease Depression Diabetes mellitus type 2 in obese Dizziness Thought initially perhaps labyrinthitis, however, no noted episodes here, however, with noted episodes of soft blood pressure, as well as bradycardia, and does appear that her metoprolol dose is too high. At this time will decrease to 50 mg twice a day. Please monitor symptoms. Strict fall precautions. Consider additional work-up in case symptoms return/persist. Left kidney mass Incidentally noted 1.6 cm hyperdense mass in posterior mid left kidney. Not seen on prior studies. Please follow-up three-phase CT evaluation. Nephrolithiasis Peripheral neuropathy Stroke Incidentally noted possible subacute CVA on CT of the head and right frontal temporal region. Please obtain additional assessment for risk factors, and help her manage already known severe risk factors including smoking, diabetes, vascular disease. She is referred for MRI of the brain. She is restarted on aspirin as hemoglobin has been stable. Statin is added. Please consider additional evaluation by carotid Doppler as the last 1 was unremarkable but was done back in 2008, as well as referral to neurology. Surgical History History of ankle surgery History of appendectomy History of bladder surgery History of carpal tunnel surgery History of cataract surgery History of shoulder surgery Hx of CABG 2004 Family History Other Dementia Social History Smoking and tobacco status: current every day smoker Alcohol intake: never History of recent travel: No Vitals/I&O/Wt Last Vital Signs Temp 98.1 F 01/01/22 15:54 Pulse 95 01/01/22 16:15 Resp 18 01/01/22 16:07 BP 102/68 01/01/22 15:54 Pulse Ox 94 01/01/22 16:15 O2 Del Method 01/01/22 16:15 O2 Flow Rate 2 01/01/22 16:15 FiO2 5 12/31/21 03:23 01/01/22 01/01/22 01/01/22 06:59 14:59 22:59 Intake Total 410 / 1840 890 / 890 Output Total 1150 / 2150 200 / 200 Balance -740 / -310 890 / 890 -200 / 690 Physical Exam Narrative: Patient is supine in bed. She states she wants to get up to go to the commode. Her left arm is in a sling. He refuses to fire her deltoid or biceps or move her shoulder to any degree due to pain. She will minimally flex and extend her elbow. She well flex and extend her fingers and wrist. Her sensation is intact to light touch. There is a strong left radial pulse. Data 01/01/22 04:55 01/01/22 04:55 Micro: Microbiology 12/30/21 13:20 Blood Culture - Preliminary Blood NEGATIVE TO DATE 12/30/21 13:10 Blood Culture - Preliminary Blood NEGATIVE TO DATE Xray Ortho: My impression: Patient has a fracture of the surgical neck. There is approximately 30% medial displacement of the shaft relative to the head and slight valgus impaction. There is no tuberosity displacement or intra-articular extension. Limited visualization was also seen on the CT scan again apparently showing no significant tuberosity or intra-articular displacement and slight displacement medially of the shaft relative to the head. A&P Assessment and plan (1) Fracture of humerus, proximal, left, closed: Discussed treatment options with the patient. The fracture is not significantly displaced. I told the patient that her bone quality will be compromised at her age with osteoporosis. With such minimal displacement I do not think there would be value in surgical stabilization. I told her this fracture should go on to heal. She may have some continued pain and stiffness but I am not certain that surgery would diminish our chances of these complications. I discussed that we will follow this clinically and radiographically. If significant displacement occurs we could reconsider surgery. I discussed risk with closed treatment including nonunion and malunion. Discussed the possible need for further procedures. I would like to see her back in my clinic in 2 weeks with repeat radiographs. Coding Level of Care Code Acute Merchandise Complaint Adjuster for [facility] Diagnoses Fracture of humerus, proximal, left, closed S42.202T
[2022-01-01 20:58] LABS: Glucose Point of Care 139 mg/dL (70-110)
[2022-01-01] MEDS: vancomycin 1,000 MG in sodium chloride 0.9% 250 ML 250 MG IV (21:11)
[2022-01-01] MEDS: enoxaparin 40 mg/0.4 mL Syringe SUBCUT (21:11)
[2022-01-02] VITALS (10 sets, daily range): BP systolic 105–132; BP diastolic 55–79; PULSE 68–89; RESP 15–17; TEMP 36.4–36.9; O2SAT 90–94
[2022-01-02] MEDS: piperacillin-tazobactam 3.375 GM in sodium chloride 0.9% (plus) 50 ML IV ×3 (06:08→22:21)
[2022-01-02 06:34] LABS: Glucose Point of Care 252 mg/dL (70-110)
[2022-01-02] MEDS: budesonide 0.5 mg/2 mL Neb INHALATION (07:44)
[2022-01-02] MEDS: ipratropium-albuterol 3 mL Neb INHALATION ×4 (07:44→20:40)
[2022-01-02] MEDS: ferrous gluconate 324 mg Tablet PO ×2 (09:58→17:21)
[2022-01-02] MEDS: duloxetine 60 mg Capsule PO (09:58)
[2022-01-02] MEDS: pantoprazole DR 40 mg Tablet PO ×2 (09:58→17:21)
[2022-01-02] MEDS: aspirin 81 mg EC Tablet PO (09:58)
[2022-01-02] MEDS: insulin lispro 100 unit/1 mL SUBCUT ×3 (09:58→17:20)
[2022-01-02] MEDS: citalopram 20 mg Tablet 10 MG PO (09:59)
[2022-01-02] MEDS: lidocaine 5% Patch 1 PATCH TOPICAL ×2 (09:59→20:17)
--- NOTE | 2022-01-02 11:00 | PC.SOCIAL ---
IMM update IMM updated with patient. Verbalized an understanding. Copy Pg 2 provided. Initialled, dated, timed, and placed in chart.
--- NOTE | 2022-01-02 16:41 | PM.PN ---
Subjective Subjective: Pain is better controlled today. Evaluated by orthopedics, not currently a surgical candidate. Breathing is better, less wheezing today. Feels improved after Lasix yesterday Medications: Reviewed: Yes Vitals/I&O/Wt Last Vital Signs Temp 97.6 F 01/02/22 16:00 Pulse 78 01/02/22 15:39 Resp 15 01/02/22 16:00 BP 132/65 01/02/22 16:00 Pulse Ox 92 01/02/22 15:39 O2 Del Method 01/02/22 15:39 O2 Flow Rate 2.5 01/02/22 15:39 FiO2 5 12/31/21 03:23 01/02/22 01/02/22 01/02/22 06:59 14:59 22:59 Intake Total 50 / 1360 290 / 290 Output Total 350 / 750 Balance -300 / 610 290 / 290 Physical Exam Narrative: General: No acute distress, AO x3 HEENT: PERRLA, pupils bilaterally equal and reactive, pallors not present Chest: Crackles to auscultation bilaterally CVS: S1-S2 regular, no murmurs, no tachycardia, no gallops, no rubs Abdomen: Soft, nontender, no organomegaly, bowel sounds present Neuro: No focal deficits, no facial deformity, AO x3, power 5/5 in all limbs Extremities: minimal LE edema noted today Data 01/01/22 04:55 01/01/22 04:55 A&P Assessment and plan (1) Fracture of head of humerus: (2) CKD (chronic kidney disease) stage 3, GFR 30-59 ml/min: (3) Hypoxia: (4) Diabetes mellitus type 2 in obese: (5) Coronary artery disease: (6) COPD (chronic obstructive pulmonary disease): (7) Pneumonia: (8) Encephalopathy acute: (9) Nausea vomiting and diarrhea: Plan Bilateral lower lobe pneumonia -Seen on CT of the chest -Pro-Christ negative, CRP elevated -Blood cultures, sputum cultures unrevealing thus far -Flu, COVID negative Suspect that her persisting changes on CT of her chest represent radiological lag from her recent pneumonia, however elevated CRP and some new symptoms cannot rule out the possibility of persisting infection. Currently on treatment with vancomycin, Zosyn empirically, will aim for a 5-day course. -Broad-spectrum coverage for healthcare associate pneumonia as she was here in the hospital 2 weeks ago -Full code -Lovenox for DVT prophylaxis Nausea, vomiting, diarrhea -Etiology unclear now resolved -CT scan of the abdomen pelvis did show stones in the gallbladder she is not tender in the right upper quadrant, no significant bili elevation no significant transaminitis alk phos is elevated Acute encephalopathy -Likely from Ativan, promethazine Now completely resolved Type 2 diabetes mellitus, insulin-dependent -Increase Lantus to 25 units every afternoon given uncontrolled blood sugars -Marginal sliding scale History of COPD -Not in exacerbation she does complain shortness of breath but no wheezing on exam Noted to be slightly more tachypneic compared to yesterday's exam. This could be as a result of pain, however there are interval development of crackles on exam and also lower extremity edema. Her last echocardiogram shows no evidence of systolic or diastolic dysfunction, however pulmonary hypertension was noted. Trial of Lasix 20 mg IV today, monitor urine output and clinic for clinical improvement. -Budesonide, DuoNeb scheduled inhalation Humerus fracture Not a good candidate for surgical intervention currently CKD monitor creatinine Dispo: deconditioned after recent illnesses, falls at home, as evidenced by her humerus fracture. Attestations Medical Necessity Statement*: Awaitimng safe disposition planning Coding Level of Care Code Acute Manager Of Software for [employer] Fwd Diagnoses Fracture of head of humerus S42.293A CKD (chronic kidney disease) stage 3, GFR 30-59 ml/min N18.30 Hypoxia R09.02 Diabetes mellitus type 2 in obese E11.69; E66.9 Coronary artery disease I25.10 COPD (chronic obstructive pulmonary disease) J44.9 Pneumonia J18.9 Encephalopathy acute G93.40 Nausea vomiting and diarrhea R11.2; R19.7
[2022-01-02] MEDS: HYDROcodone-acetaminophen 5-325 mg Tablet 1 TAB PO (17:20)
[2022-01-02] MEDS: insulin glargine 100 units/1 mL 25 UNIT SUBCUT (17:21)
[2022-01-02] MEDS: atorvastatin 40 mg Tablet PO (17:21)
[2022-01-02 17:23] LABS: Glucose Point of Care 201 mg/dL (70-110)
[2022-01-02] MEDS: FUROsemide 10 mg/mL SDV 2mL 20 MG IVP (20:15)
[2022-01-02 20:25] LABS: Glucose Point of Care 146 mg/dL (70-110)
[2022-01-02] MEDS: vancomycin 1,000 MG in sodium chloride 0.9% 250 ML 250 MG IV (21:18)
[2022-01-02] MEDS: enoxaparin 40 mg/0.4 mL Syringe SUBCUT (21:18)
[2022-01-03] VITALS (12 sets, daily range): BP systolic 103–115; BP diastolic 50–66; PULSE 61–81; RESP 16–20; TEMP 36.4–36.8; O2SAT 90–94
[2022-01-03] MEDS: HYDROcodone-acetaminophen 5-325 mg Tablet 1 TAB PO ×3 (01:56→22:07)
[2022-01-03] MEDS: piperacillin-tazobactam 3.375 GM in sodium chloride 0.9% (plus) 50 ML IV ×2 (06:10→14:40)
[2022-01-03] MEDS: ipratropium-albuterol 3 mL Neb INHALATION ×4 (07:48→22:21)
[2022-01-03] MEDS: budesonide 0.5 mg/2 mL Neb INHALATION (07:48)
[2022-01-03] MEDS: duloxetine 60 mg Capsule PO (09:57)
[2022-01-03] MEDS: FUROsemide 40 mg Tablet PO (09:57)
[2022-01-03] MEDS: citalopram 20 mg Tablet 10 MG PO (09:58)
[2022-01-03] MEDS: pantoprazole DR 40 mg Tablet PO ×2 (09:58→17:11)
[2022-01-03] MEDS: aspirin 81 mg EC Tablet PO (09:58)
[2022-01-03] MEDS: lidocaine 5% Patch 1 PATCH TOPICAL (09:59)
[2022-01-03] MEDS: ferrous gluconate 324 mg Tablet PO ×2 (10:07→17:11)
[2022-01-03 12:26] LABS: Glucose Point of Care 204 mg/dL (70-110)
[2022-01-03] MEDS: insulin lispro 100 unit/1 mL SUBCUT ×2 (13:28→17:56)
[2022-01-03] MEDS: acetaminophen 325 mg Tablet 650 MG PO (14:44)
[2022-01-03] MEDS: atorvastatin 40 mg Tablet PO (17:11)
[2022-01-03] MEDS: insulin glargine 100 units/1 mL 25 UNIT SUBCUT (17:30)
--- NOTE | 2022-01-03 18:11 | P.PN_ITS ---
Subjective Subjective: Pain is better controlled. Has no new complaints today. Requiring assistance today to get in and out of chair to the bedside commode. She is asked me for assistant professor of communication twice in this regard. Upset that her shoulder will take 6 to 8 weeks to improve. Medications: Reviewed: Yes Vitals/I&O/Wt Last Vital Signs Temp 97.5 F L 01/03/22 15:29 Pulse 71 01/03/22 15:29 Resp 18 01/03/22 15:29 BP 103/59 01/03/22 15:29 Pulse Ox 93 01/03/22 15:29 O2 Del Method 01/03/22 15:29 O2 Flow Rate 2.5 01/03/22 15:18 FiO2 5 12/31/21 03:23 01/03/22 01/03/22 01/03/22 06:59 14:59 22:59 Intake Total 50 / 880 290 / 290 Output Total 550 / 1900 Balance -500 / -1020 290 / 290 Physical Exam Narrative: General: No acute distress, AO x3 HEENT: PERRLA, pupils bilaterally equal and reactive, pallors not present Chest: Crackles to auscultation bilaterally CVS: S1-S2 regular, no murmurs, no tachycardia, no gallops, no rubs Abdomen: Soft, nontender, no organomegaly, bowel sounds present Neuro: No focal deficits, no facial deformity, AO x3, power 5/5 in all limbs Extremities: minimal LE edema noted today Data 01/01/22 04:55 01/01/22 04:55 A&P Assessment and plan (1) Fracture of head of humerus: (2) CKD (chronic kidney disease) stage 3, GFR 30-59 ml/min: (3) Hypoxia: (4) Diabetes mellitus type 2 in obese: (5) Coronary artery disease: (6) COPD (chronic obstructive pulmonary disease): (7) Pneumonia: (8) Encephalopathy acute: (9) Nausea vomiting and diarrhea: Plan Bilateral lower lobe pneumonia -Seen on CT of the chest -Pro-Chrsit negative, CRP elevated -Blood cultures, sputum cultures unrevealing thus far -Flu, COVID negative Suspect that her persisting changes on CT of her chest represent radiological lag from her recent pneumonia, however elevated CRP and some new symptoms cannot rule out the possibility of persisting infection. Currently on treatment with vancomycin, Zosyn empirically, will aim for a 5-day course. -Broad-spectrum coverage for healthcare associate pneumonia as she was here in the hospital 2 weeks ago -Full code -Lovenox for DVT prophylaxis Nausea, vomiting, diarrhea -Etiology unclear now resolved -CT scan of the abdomen pelvis did show stones in the gallbladder she is not tender in the right upper quadrant, no significant bili elevation no significant transaminitis alk phos is elevated Acute encephalopathy -Likely from Ativan, promethazine Now completely resolved Type 2 diabetes mellitus, insulin-dependent -Increase Lantus to 25 units every afternoon given uncontrolled blood sugars -Marginal sliding scale History of COPD -Not in exacerbation she does complain shortness of breath but no wheezing on exam Noted to be slightly more tachypneic compared to yesterday's exam. This could be as a result of pain, however there are interval development of crackles on exam and also lower extremity edema. Her last echocardiogram shows no evidence of systolic or diastolic dysfunction, however pulmonary hypertension was noted. Trial of Lasix 20 mg IV today, monitor urine output and clinic for clinical improvement. -Budesonide, DuoNeb scheduled inhalation Humerus fracture Not a good candidate for surgical intervention currently CKD monitor creatinine Dispo: deconditioned after recent illnesses, falls at home, as evidenced by her humerus fracture. Plan for today:Discontinue IV antibiotics piperacillin tazobactam and vancomycin as she has completed an adequate empiric course for possible hospital-acquired pneumonia, though it appears more likely that this is a radiological lag. Started on Lasix 40 mg p.o. daily. She has been accepted for placement at a halfway facility but they are awaiting prior Auth from her insurance. Attestations Medical Necessity Statement*: Discontinue antibiotics, start p.o. Lasix, a waiting prior Auth for discharge to SNF from insurance Coding Level of Care Code Acute Volleyball Referee for [employer]wd Diagnoses Fracture of head of humerus S42.293A CKD (chronic kidney disease) stage 3, GFR 30-59 ml/min N18.30 Hypoxia R09.02 Diabetes mellitus type 2 in obese E11.69; E66.9 Coronary artery disease I25.10 COPD (chronic obstructive pulmonary disease) J44.9 Pneumonia J18.9 Encephalopathy acute G93.40 Nausea vomiting and diarrhea R11.2; R19.7
[2022-01-03] MEDS: enoxaparin 40 mg/0.4 mL Syringe SUBCUT (21:59)
[2022-01-03 23:08] LABS: Glucose Point of Care 220 mg/dL (70-110)
[2022-01-04] VITALS (7 sets, daily range): BP systolic 108–119; BP diastolic 56–69; PULSE 67–78; RESP 16–18; TEMP 36.4–36.9; O2SAT 90–95
[2022-01-04 01:25] LABS: SARS Covid-2 Antigen negative (Negative)
[2022-01-04 06:33] LABS: Glucose Point of Care 315 mg/dL (70-110)
[2022-01-04 06:33] LABS: Glucose Point of Care 191 mg/dL (70-110)
[2022-01-04 06:44] LABS: Glucose Point of Care 169 mg/dL (70-110)
[2022-01-04] MEDS: ipratropium-albuterol 3 mL Neb INHALATION ×2 (07:55→11:22)
[2022-01-04] MEDS: budesonide 0.5 mg/2 mL Neb INHALATION (07:55)
[2022-01-04] MEDS: duloxetine 60 mg Capsule PO (08:53)
[2022-01-04] MEDS: lidocaine 5% Patch 1 PATCH TOPICAL (08:53)
[2022-01-04] MEDS: HYDROcodone-acetaminophen 5-325 mg Tablet 1 TAB PO (08:53)
[2022-01-04] MEDS: pantoprazole DR 40 mg Tablet PO (08:54)
[2022-01-04] MEDS: aspirin 81 mg EC Tablet PO (08:54)
[2022-01-04] MEDS: citalopram 20 mg Tablet 10 MG PO (08:54)
[2022-01-04] MEDS: FUROsemide 40 mg Tablet PO (08:54)
[2022-01-04] MEDS: ferrous gluconate 324 mg Tablet PO (08:54)
--- NOTE | 2022-01-04 10:50 | P.DS_ITS ---
Discharge Providers Date of Admission: 12/30/21 19:01 Date of Discharge: January 04, 2022 Attending Provider at Admission: Farshad Chawla MD Attending Provider at Discharge: Rae Avalos MD Primary Care Provider: Alem Auguste Diagnoses at Discharge Discharge Diagnosis (1) Fracture of head of humerus: Status: Acute (2) CKD (chronic kidney disease) stage 3, GFR 30-59 ml/min: Status: Acute (3) Hypoxia: Status: Acute (4) Diabetes mellitus type 2 in obese: Status: Acute (5) Coronary artery disease: Status: Acute (6) COPD (chronic obstructive pulmonary disease): Status: Acute Permanent problem details: Chronically uses 2 L per nasal cannula (7) Pneumonia: Status: Acute (8) Encephalopathy acute: Status: Acute (9) Nausea vomiting and diarrhea: Status: Acute Reason for Visit Reason for Visit: sob, low ox Hospital Course Hospital Course Ms. Gonsales is a 76-year-old lady with a past medical history of hypertension, type 2 diabetes mellitus, coronary artery disease, COPD chronically on 2 L home oxygen and history of CVA who presented to the hospital on December 30, 2021 with altered mental status. She was drowsy, alert oriented x1 at the time. She had taken a fall at home and as a result had a proximal humeral fracture. Her altered mental status was most likely related to use from Ativan and promethazine. Both of these medications were discontinued and patient's mental status improved. During her course in the hospital he she has been alert awake oriented x3 and appropriate in conversation. Chest x-ray showed bilateral lower lobe pneumonia, this could potentially be construction sales representative of healthcare associated pneumonia since patient was discharged 2 weeks ago with the same diagnosis. Alternatively this could be construction sales representative of her radiological lag from her recent admission. She was treated with IV piperacillin tazobactam and vancomycin during her stay in the hospital here. She has appropriately completed 6 days of IV antibiotics and these are not being continued at the time of discharge. She continued scheduled nebulization during course of admission here. She did continue to complain of shortness of breath and spite of [id number] nebulization. There was no diffuse wheezing on exam. Echocardiogram was reviewed which showed no systolic or diastolic dysfunction however there was evidence of pulmonary hypertension. She received trial of IV Lasix 20 mg on 1127 and 1128 and her respiratory status improved significantly. She is being discharged with p.o. Lasix 40 mg daily. Recommend to check CMP in 2 to 3 days. For her humerus fracture she was assessed by orthopedic surgery. No surgical intervention is currently recommended. Her arm is placed in a sling to minimize mobilization. Follow-up with orthopedics in 2 weeks. She has been receiving Toradol, lidocaine patch and hydrocodone APAP for pain management. Physical Exam Narrative: General: No acute distress, AO x3 HEENT: PERRLA, pupils bilaterally equal and reactive, pallors not present Chest: Normal vesicular breath sounds, no added sounds, equal good air entry bilaterally CVS: S1-S2 regular, no murmurs, no tachycardia, no gallops, no rubs Abdomen: Soft, nontender, no organomegaly, bowel sounds present Neuro: No focal deficits, no facial deformity, AO x3, power 5/5 in all limbs Discharge Data Studies Completed and Pending Completed Studies During Hospitalization Category Date Time Status CTA chest CT abdomen pelvis [CT angio chest w abd pel w Cat Scan 12/30/21 17:56 Completed con] Stat XR chest 1V portable [id number] Stat Exams 12/30/21 12:57 Completed Pending at discharge Category Date Time Status Blood Culture Stat Lab 12/30/21 13:20 Results Clostridioides Difficile PCR Routine Lab 12/30/21 20:48 Ordered Enteric Bacterial Panel by PCR Routine Lab 12/30/21 20:48 Ordered Enteric Parasite Panel by PCR Routine Lab 12/30/21 20:48 Ordered Immunochemical Fecal OCB Routine Lab 12/30/21 20:48 Ordered Lactoferrin Routine Lab 12/30/21 20:48 Ordered Sputum Culture and Gram Stain Stat Lab 12/30/21 19:19 Uncollected Radiology Impressions Chest X-Ray 12/30/21 12:57 IMPRESSION: 1. Stable right lower lobe parenchymal density possible parenchymal scar 2. Metallic sternotomy wires are present. 3. Otherwise negative examination 3. Otherwise negative chest examination Chest/Abdomen/Pelvis CT 12/30/21 17:56 IMPRESSION: 1. Bilateral lower lobe pneumonia 2. Findings of emphysema as described 3. Right middle lobe pulmonary nodule stable since 2017. No further follow-up or evaluation is required. 4. No gross evidence of pulmonary embolism. IMPRESSION: 1. No acute findings in the abdomen or pelvis. 2. Previously seen suspicious mass left kidney no longer identified. 3. Possible small gallstones within the gallbladder. Laboratory Results WBC 7.2 10^3/uL (4.0-10.0) 01/01/22 04:55 RBC 3.61 10^6/uL (4.1-5.3) L 01/01/22 04:55 Hgb 10.2 g/dL (11.5-15.3) L 01/01/22 04:55 Hct 34.5 % (37.0-47.0) L 01/01/22 04:55 MCV 95.6 fl (81-99) 01/01/22 04:55 MCH 28.3 pg (28.0-34.0) 01/01/22 04:55 MCHC 29.6 g/dL (30.0-36.0) L 01/01/22 04:55 RDW 15.3 % (12.1-15.1) H 01/01/22 04:55 Plt Count 220 10^3/cmm (130-400) 01/01/22 04:55 MPV 8.9 fL (7.4-10.4) 01/01/22 04:55 Neut % (Auto) 73.6 % 01/01/22 04:55 Lymph % (Auto) 13.9 % 01/01/22 04:55 Todd % (Auto) 9.2 % 01/01/22 04:55 Eos % (Auto) 2.4 % 01/01/22 04:55 Baso % (Auto) 0.3 % 01/01/22 04:55 Neut # (Auto) 5.32 10^3/uL (1.8-7.7) 01/01/22 04:55 Lymph # (Auto) 1.0 10^3/uL (0.8-4.8) 01/01/22 04:55 Todd # (Auto) 0.7 10^3/uL (0.2-0.9) 01/01/22 04:55 Eos # (Auto) 0.2 10^3/uL (0.0-0.8) 01/01/22 04:55 Baso # (Auto) 0.0 10^3/uL (0.0-0.1) 01/01/22 04:55 Nucleated RBC % (auto) 0 % 01/01/22 04:55 Nucleated RBCs # 0.0 /100WBC 01/01/22 04:55 Sodium 132 mmol/L (136-145) L 01/01/22 04:55 Potassium 4.4 mmol/L (3.5-5.1) 01/01/22 04:55 Chloride 96 mmol/L (98-107) L 01/01/22 04:55 Carbon Dioxide 28 mmol/L (22-29) 01/01/22 04:55 Anion Gap 12.4 (5-19) 01/01/22 04:55 BUN 20 mg/dL (8-23) 01/01/22 04:55 Creatinine 0.9 mg/dL (0.5-0.9) 01/01/22 04:55 GFR Calculation Not Reportable 01/01/22 04:55 Glucose 277 mg/dL (65-115) H 01/01/22 04:55 POC Glucose 169 mg/dL (70-110) H 01/04/22 06:39 Estimat Average Glucose 237 12/30/21 13:10 Hemoglobin A1c 9.9 % (4.0-6.0) H 12/30/21 13:10 Calculated Osmolality 287 mOsm/kg (285-295) 01/01/22 04:55 Lactate 1.2 mmol/L (0.5-2.2) 12/30/21 19:24 Calcium 9.2 mg/dL (8.5-10.5) 01/01/22 04:55 Phosphorus 3.0 mg/dL (2.5-4.5) 12/31/21 05:33 Magnesium 1.6 mg/dL (1.7-2.3) L 12/31/21 05:33 Total Bilirubin 0.8 mg/dL (0.15-1.2) 01/01/22 04:55 AST 13 U/L (0-32) 01/01/22 04:55 ALT 16 U/L (0-33) 01/01/22 04:55 Alkaline Phosphatase 125 U/L (35-105) H 01/01/22 04:55 Troponin T Baseline 19 ng/L (0-10) H 12/30/21 13:10 Troponin T 120 Minute 19.64 ng/L (0-10) H 12/30/21 15:14 Delta Troponin T 0.64 ABS# (0-10) 12/30/21 15:14 Troponin T Hi Sens 6Hr 19.10 ng/L (0-10) H 12/30/21 18:55 Troponin T Hi Sens 6Hr Delta 0.10 ng/L (0-12) 12/30/21 18:55 C-Reactive Protein 84.9 mg/L (0.0-4.9) H 12/30/21 19:24 NT-Pro-B Natriuret Pep 193 pg/mL (0-125) H 12/31/21 05:33 Total Protein 6.8 g/dL (6.6-8.7) 01/01/22 04:55 Albumin 2.8 g/dL (3.5-5.2) L 01/01/22 04:55 Globulin 4.0 g/dL (1.3-4.6) 01/01/22 04:55 Lipase 43 U/L (13-60) 12/30/21 13:10 Procalcitonin 0.27 ng/mL (0-0.5) 12/30/21 19:24 TSH 0.61 uIU/mL (0.27-4.20) 12/31/21 05:33 Urine Color Yellow (Yellow) 12/31/21 00:30 Urine Appearance Clear (CLEAR) 12/31/21 00:30 Urine pH 5 (5-7) 12/31/21 00:30 Ur Specific [place] 1.015 (1.005-1.030) 12/31/21 00:30 Urine Protein Neg (Negative) 12/31/21 00:30 Urine Glucose (UA) 4+ (Normal) H 12/31/21 00:30 Urine Ketones Negative (Negative) 12/31/21 00:30 Urine Blood Neg (Negative) 12/31/21 00:30 Urine Nitrate Negative (Negative) 12/31/21 00:30 Urine Bilirubin Neg (Negative) 12/31/21 00:30 Urine Urobilinogen Neg mg/dL (Negative) 12/31/21 00:30 Ur Leukocyte Esterase Negative (Negative) 12/31/21 00:30 Coronavirus 229E (PCR) Not detected (NOT DETECT) 12/30/21 20:55 Influenza Type A Ag negative (Negative) 12/30/21 20:55 Influenza Type B Ag negative (Negative) 12/30/21 20:55 SARS-CoV-2 (PCR) Not detected (NOT DETECT) 12/30/21 20:55 SARS-CoV-2 Ag (Rapid) negative (Negative) 01/04/22 01:05 Vitals Last Vital Signs Temp 98.0 F 01/04/22 08:00 Pulse 75 01/04/22 08:03 Resp 18 01/04/22 08:03 BP 114/67 01/04/22 08:00 Pulse Ox 95 01/04/22 08:03 O2 Del Method 01/04/22 08:03 O2 Flow Rate 3 01/04/22 08:03 FiO2 5 12/31/21 03:23 Discharge Plan Discharge Patient Disposition: Xfer [facility] Condition: Stable Prescriptions: New lidocaine 5 % Adhesive Patch,Medicated 1 patch topical [id number] 30 Days Qty: 30 0RF furosemide 40 mg Tablet 40 mg PO DAILY@0800 5 Days Qty: 5 0RF ketorolac 10 mg tablet 10 mg PO Q8H PRN (Reason: pain) 5 Days Qty: 15 0RF Continued citalopram 10 mg Tablet 10 mg PO DAILY metformin 1,000 mg Tablet 1,000 mg PO DAILY Victoza 2-Manjinder 0.6 mg/0.1 mL (18 mg/3 mL) Pen Injector 1.8 mg SUBCUT DAILY duloxetine 60 mg Capsule, Delayed Rel Sprinkle 60 mg PO DAILY methocarbamol 500 mg Tablet 500 mg PO QID PRN (Reason: Muscle Spasms) Qty: 14 0RF pantoprazole 40 mg Tablet,Delayed Release (Dr/Ec) 40 mg PO BID Qty: 90 0RF aspirin [Farzana Low Dose Aspirin] 81 mg tablet,delayed release (DR/EC) 81 mg PO DAILY Qty: 30 0RF atorvastatin 40 mg tablet 40 mg PO QPM Qty: 30 0RF ketoconazole 2 % shampoo 1 applic TOPICAL DAILY insulin lispro 100 unit/mL insulin pen 16 unit SUBCUT TID insulin glargine [Lantus U-100 Insulin] 100 unit/mL solution 55 unit SUBCUT QPM polyethylene glycol 3350 [Miralax] 17 gram powder in packet 17 g PO DAILY PRN (Reason: Constipation) ferrous gluconate 324 mg (37.5 mg iron) Tablet 324 mg PO BIDWM Qty: 60 0RF Pulmicort Flexhaler 180 mcg/actuation aerosol powdr breath activated 1 inh inhalation BID Qty: 1 0RF hydrocodone-acetaminophen 5-325 mg tablet 1 tab PO Q8H PRN (Reason: pain) Qty: 20 0RF sennosides [Natural Senna Laxative] 8.6 mg tablet 8.6 mg PO DAILY PRN (Reason: constipation) Qty: 20 0RF ondansetron 4 mg tablet,disintegrating 4 mg PO TID PRN (Reason: nausea and vomiting) Qty: 15 0RF Tylenol 325 mg Capsule 650 mg PO QID PRN (Reason: Pain) Discharge Orders: Discharge Order (Routine); Ordered 01/04/22 Ordered By: Rae Avalos Referrals: Alem Auguste PA [Primary Care Provider] - 1 week Discharge Diet: Diabetic Discharge Activity: Resume usual activity Discharge Attestations Time Spent in Discharge Care*: greater than 30 min Status at Discharge: Cognitive status at discharge: mildly impaired cognition , Behavioral status at discharge: cooperative , Quality Metrics Clinical Quality Measures [ No reported AMI, CVA or VTE this stay] Coding Level of Care Code Acute Chg FW DC note Diagnoses Fracture of head of humerus S42.293A CKD (chronic kidney disease) stage 3, GFR 30-59 ml/min N18.30 Hypoxia R09.02 Diabetes mellitus type 2 in obese E11.69; E66.9 Coronary artery disease I25.10 COPD (chronic obstructive pulmonary disease) J44.9 Pneumonia J18.9 Encephalopathy acute G93.40 Nausea vomiting and diarrhea R11.2; R19.7
[2022-01-04] MEDS: insulin lispro 100 unit/1 mL SUBCUT (12:49)
[2022-01-04 20:37] LABS: Glucose Point of Care 280 mg/dL (70-110)
== END 2022-01-04 13:42 | disposition skilled nursing facility (03) | DRG 194 ==
LOC: ER 19:14 → MEDSURG 19:25
PROVIDERS: Admitting Provider Family Medicine; Emergency Provider Family Medicine; PCP Physician Assistant; Visit Provider Student in an Organized Health Care Education/Training Program
DX: J18.9 Pneumonia, unspecified organism (principal); G93.40 Encephalopathy, unspecified; J44.0 Chronic obstructive pulmonary disease with (acute) lower respiratory infection; M80.852A Other osteoporosis with current pathological fracture, left femur, initial encounter for fracture; Y95 Nosocomial condition; E11.22 Type 2 diabetes mellitus with diabetic chronic kidney disease; I12.9 Hypertensive chronic kidney disease with stage 1 through stage 4 chronic kidney disease, or unspecified chronic kidney disease; N18.30 Chronic kidney disease, stage 3 unspecified; I25.10 Atherosclerotic heart disease of native coronary artery without angina pectoris; Z95.1 Presence of aortocoronary bypass graft; Z99.81 Dependence on supplemental oxygen; F32.A Depression, unspecified; Z86.73 Personal history of transient ischemic attack (TIA), and cerebral infarction without residual deficits; E66.9 Obesity, unspecified; Z68.27 Body mass index [BMI] 27.0-27.9, adult; E11.42 Type 2 diabetes mellitus with diabetic polyneuropathy; F17.200 Nicotine dependence, unspecified, uncomplicated; Z88.5 Allergy status to narcotic agent; Z79.891 Long term (current) use of opiate analgesic; Z79.82 Long term (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; Z79.4 Long term (current) use of insulin; Z79.84 Long term (current) use of oral hypoglycemic drugs; I27.20 Pulmonary hypertension, unspecified
CPT/HCPCS: 36415; 36416; 71045; 71275; 74177; 80048; 80053; 81003; 82962; 83036; 83605; 83690; 83735; 83880; 84100; 84145; 84443; 84484; 85025; 86140; 86403; 87040; 87426; 87635; 87641; 87804; 93005; 94640; 94664; 96372; 97110; 97116; 97161; 97165; 97530; 97535; 99285; J1650; J1815; J1940; J1956; J2060; J2543; J2550; J3370; J7030; J7050; J7626; Q9967

== ENCOUNTER → 2022-01-31 10:40 | Outpatient (BNVA) | payer MEDICARE, MEDICAID, SELFPAY | PROVIDERS: PCP Physician Assistant; Visit Provider Nurse Practitioner Family | DX: M25.512 Pain in left shoulder (principal); S42.202A Unspecified fracture of upper end of left humerus, initial encounter for closed fracture; X58.XXXA Exposure to other specified factors, initial encounter | CPT/HCPCS: 73030; 99214 ==

== ENCOUNTER → 2022-02-28 10:59 | Outpatient (BNVA) | payer MEDICARE, MEDICAID, SELFPAY | PROVIDERS: PCP Physician Assistant; Visit Provider Nurse Practitioner Family | DX: S42.202A Unspecified fracture of upper end of left humerus, initial encounter for closed fracture (principal); X58.XXXA Exposure to other specified factors, initial encounter | CPT/HCPCS: 73030; 99213 ==

== ENCOUNTER → 2022-09-25 08:53 | Outpatient (BNVA) | payer MEDICARE, MEDICAID, SELFPAY | PROVIDERS: PCP Physician Assistant; Visit Provider Thoracic Surgery (Cardiothoracic Vascular Surgery) | DX: I96 Gangrene, not elsewhere classified (principal); L98.492 Non-pressure chronic ulcer of skin of other sites with fat layer exposed | CPT/HCPCS: 10060; 87070; 87077; 87186; 99213; A6212 ==

== ENCOUNTER → 2022-10-02 09:12 | Outpatient (BNVA) | payer MEDICARE, MEDICAID, SELFPAY | PROVIDERS: PCP Physician Assistant; Visit Provider Thoracic Surgery (Cardiothoracic Vascular Surgery) | DX: I96 Gangrene, not elsewhere classified (principal); L02.213 Cutaneous abscess of chest wall | CPT/HCPCS: 10060 ==

== ENCOUNTER → 2022-10-06 11:13 | Outpatient (BNVA) | payer MEDICARE, MEDICAID, SELFPAY | PROVIDERS: PCP Physician Assistant; Visit Provider Thoracic Surgery (Cardiothoracic Vascular Surgery) | DX: I96 Gangrene, not elsewhere classified (principal); L02.213 Cutaneous abscess of chest wall | CPT/HCPCS: 97597 ==

== ENCOUNTER → 2022-10-13 14:18 | Outpatient (BNVA) | payer MEDICARE, MEDICAID, SELFPAY | PROVIDERS: PCP Physician Assistant; Visit Provider Thoracic Surgery (Cardiothoracic Vascular Surgery) | DX: I96 Gangrene, not elsewhere classified (principal); L02.213 Cutaneous abscess of chest wall | CPT/HCPCS: 11042 ==

== ENCOUNTER → 2022-10-27 09:12 | Outpatient (BNVA) | payer MEDICARE, MEDICAID, SELFPAY | PROVIDERS: PCP Physician Assistant; Visit Provider Nurse Practitioner Family | DX: I96 Gangrene, not elsewhere classified (principal); L98.492 Non-pressure chronic ulcer of skin of other sites with fat layer exposed | CPT/HCPCS: 97597; A6210; A6212 ==

== ENCOUNTER 2023-07-16 13:25 | Inpatient (IN) | payer MEDICARE, MEDICAID, SELFPAY ==
[2023-07-16] VITALS (10 sets, daily range): BP systolic 127–145; BP diastolic 60–98; PULSE 54–65; RESP 16–19; TEMP 36.4–36.6; O2SAT 92–97; BMI 30.7
--- NOTE | 2023-07-16 13:29 | XRR_ITS ---
PROCEDURE INFORMATION: Exam: XR Right Humerus Exam date and time: 07/16/2023 1:35 PM Age: 77 years old Clinical indication: Injury or trauma; Fall; Blunt trauma (contusions or hematomas); Arm, upper; Right TECHNIQUE: Imaging protocol: Radiologic exam of the right humerus. Views: 2 or more views. COMPARISON: CR XR chest 2V* [id number] 12/15/2022 4:21 PM FINDINGS: Bones/joints: Comminuted/transverse fracture mid humeral shaft with half shaft width lateral displacement and posterior angulation. Very high suspicion for an impacted fracture of the right humeral head/neck versus artifact from right arm rotation. Mild degenerative changes right acromioclavicular joint. Soft tissues: Diffuse right arm swelling. XR/[place] [id number] IMPRESSION: 1. Comminuted/transverse fracture mid humeral shaft with half shaft width lateral displacement and posterior angulation. 2. Very high suspicion for an impacted fracture of the right humeral head/neck versus artifact from right arm rotation. Consider correlation with dedicated right shoulder films or noncontrast right shoulder CT.
--- NOTE | 2023-07-16 13:36 | XRR_ITS ---
PROCEDURE INFORMATION: Exam: XR Chest Exam date and time: 07/16/2023 1:39 PM Age: 77 years old Clinical indication: Injury or trauma; Fall; Cough and dyspnea; Blunt trauma (contusions or hematomas); Additional info: Dyspnea/cough TECHNIQUE: Imaging protocol: Radiologic exam of the chest. Views: 1 view. COMPARISON: CR XR chest 2V* [id number] 12/15/2022 4:21 PM FINDINGS: Airway: Patent Lungs: Low lung volumes causes crowding of the bronchovascular structures. Bilateral perihilar and basal interstitial prominence. Pleural spaces: Unremarkable. No pleural effusion. No pneumothorax. Heart/Mediastinum: The heart demonstrates moderate diffuse enlargement. Bones/joints: Displaced right mid humeral fracture. High suspicion for an impacted fracture of the right humeral head/neck. No other acutely displaced skeletal fractures are identified. Sternotomy wires and mediastinal surgical clips are present, consistent with previous coronary arterial bypass grafting. Soft tissues: Swelling throughout the right arm. XR/XR chest 1V portable [id number] IMPRESSION: 1. Bilateral perihilar and basal interstitial prominence. Could be related to bronchovascular crowding or mild pulmonary edema. 2. Displaced right mid humeral fracture. Please review humerus films performed concomitantly. 3. High suspicion for an impacted fracture of the right humeral head/neck. Please review humerus films performed concomitantly.
--- NOTE | 2023-07-16 13:36 | ECG_ITS ---
[facility] Test Date: 2023-07-16 Pat Name: Deyanira Gonsales Department: Room: Gender: Female Collections Assistant: : 1945 Requested By: Trung Calzada Order Number: [id number] Gregory MD: Kulwinder Arvizu M.D. Measurements Intervals [place] Rate: 55 P: 33 [place]: 155 QRS: 62 QRSD: 83 T: 75 QT: 452 QTc: 433 Interpretive Statements SINUS BRADYCARDIA NONSPECIFIC ST & T-WAVE ABNORMALITY Compared to ECG 12/30/2021 19:03:24 T-wave abnormality now present Sinus rhythm no longer present Electronically Signed On 07-16-2023 19:03:31 CDT by Kulwinder Arvizu M.D. [id number]
--- NOTE | 2023-07-16 13:37 | W.ED.EXTPRO ---
HPI - Extremity Problem General: Chief complaint: Extremity Injury, Upper Stated complaint: fall Time Seen by Provider: 07/16/23 13:29 Source: patient Mode of arrival: EMS History of Present Illness: 77-year-old female who presents emergency room complaining of upper extremity injury and pain. She fell at home in her bathroom comes in by EMS after having been given fentanyl and route for complaints of pain. She is not able to give much for history at the moment due to the effects of the narcotic. No external evidence of head trauma. She is not on any anticoagulants. Complaint: extremity pain Onset (ago): minute(s) Pain Consistency: constant Relieving factors: nothing Exacerbating factors: nothing Associated symptoms: Deny chest pain Review of Systems Const: Denies: chills Card: Denies: chest pain Resp: Denies: dyspnea GI: Denies: abdominal pain Musc: Denies: neck pain or back pain [facility] ED PFSH: Medical History (Updated 07/16/23 @ 15:50 by Catarina Barger MD) CKD (chronic kidney disease) stage 3, GFR 30-59 ml/min Pneumonia Stroke Coffee ground emesis 2021 Nephrolithiasis Coronary artery disease Peripheral neuropathy Depression Diabetes mellitus type 2 in obese COPD (chronic obstructive pulmonary disease) Chronically uses 2 L per nasal cannula Surgical History History of ankle surgery History of cataract surgery History of bladder surgery History of carpal tunnel surgery History of shoulder surgery History of appendectomy Hx of CABG 2004 Family History Other Dementia Social History Smoking and tobacco/nicotine status: current every day tobacco/nicotine user Alcohol intake: never Substance/Drug Use: never Physical Exam Const: COMMON NORMALS: no acute distress GENERAL APPEARANCE: cooperative and comfortable ORIENTATION/CONSCIOUSNESS: Yes awake HENMT: COMMON NORMALS: normocephalic, atraumatic and hearing grossly normal bilaterally HEAD & SCALP: normocephalic and atraumatic Resp: COMMON NORMALS: normal respiratory effort, No retractions, No use of accessory muscles and clear to auscultation bilaterally AUSCULTATION: clear to auscultation bilaterally Cardio: COMMON NORMALS: regular rate, regular rhythm and No murmurs present (Cardio) RATE: regular rate RHYTHM: regular rhythm GI: COMMON NORMALS: Soft to palpation and No hepatosplenomegaly present AUSCULTATION: Yes normoactive bowel sounds PALPATION: Yes Soft to palpation, No Tenderness to palpation present (GI), No Guarding due to palpation present (GI) and Yes No hepatosplenomegaly present Extremity: COMMON NORMALS: normal to inspection, capillary refill normal, no clubbing, cyanosis or edema, no calf tenderness and no pedal edema Skin: COMMON NORMALS: no rashes or lesions noted GENERAL SKIN EXAM: no rashes or lesions noted Course Vital Signs: Vital signs: Vital Signs Pulse Rate 55 L 07/16/23 15:42 Respiratory Rate 18 07/16/23 16:28 Blood Pressure 145/98 07/16/23 15:42 Pulse Oximetry 93 07/16/23 16:28 Oxygen Delivery Me thod Nasal Cannula 07/16/23 13:25 Oxygen Flow Rate 4 07/16/23 13:25 MDM - Extremity (Nontraumatic) Medical Decision Making Proximal humerus and midshaft humerus fractures. Also has pneumonia. She requiring oxygen after receiving narcotics and that may be from the narcotics, may be from the pneumonia will admit cultures done. Discussed with hospitalist. Medical Records I reviewed the patient's medical records. Lab Data I reviewed the patient's lab results. 07/16/23 13:05 07/16/23 13:05 Radiology Impressions Humerus X-Ray 07/16/23 13:29 IMPRESSION: 1. Comminuted/transverse fracture mid humeral shaft with half shaft width lateral displacement and posterior angulation. 2. Very high suspicion for an impacted fracture of the right humeral head/neck versus artifact from right arm rotation. Consider correlation with dedicated right shoulder films or noncontrast right shoulder CT. Chest X-Ray 07/16/23 13:36 IMPRESSION: 1. Bilateral perihilar and basal interstitial prominence. Could be related to bronchovascular crowding or mild pulmonary edema. 2. Displaced right mid humeral fracture. Please review humerus films performed concomitantly. 3. High suspicion for an impacted fracture of the right humeral head/neck. Please review humerus films performed concomitantly. Laboratory Results WBC 12.58 10^3/uL (3.29-11.43) H 07/16/23 13:05 RBC 4.53 10^6/uL (3.85-5.65) 07/16/23 13:05 Hgb 12.90 g/dL (11.27-16.99) 07/16/23 13:05 Hct 41.6 % (36-47) 07/16/23 13:05 MCV 91.8 fl (85-98) 07/16/23 13:05 MCH 28.5 pg (27-33) 07/16/23 13:05 MCHC 31.0 g/dL (30-55) 07/16/23 13:05 RDW 14.2 % (12.1-15.1) 07/16/23 13:05 Plt Count 313 10^3/cmm (157-399) 07/16/23 13:05 MPV 9.2 fL (7.4-10.4) 07/16/23 13:05 Neut % (Auto) 57.9 % 07/16/23 13:05 Lymph % (Auto) 23.6 % 07/16/23 13:05 Wilkin % (Auto) 8.1 % 07/16/23 13:05 Eos % (Auto) 5.4 % 07/16/23 13:05 Baso % (Auto) 0.9 % 07/16/23 13:05 Neut # (Auto) 7.28 10^3/uL (1.8-7.7) 07/16/23 13:05 Lymph # (Auto) 3.0 10^3/uL (0.8-4.8) 07/16/23 13:05 Wilkin # (Auto) 1.0 10^3/uL (0.2-0.9) H 07/16/23 13:05 Eos # (Auto) 0.7 10^3/uL (0.0-0.8) 07/16/23 13:05 Baso # (Auto) 0.1 10^3/uL (0.0-0.1) 07/16/23 13:05 Nucleated RBC % (auto) 0 % 07/16/23 13:05 Nucleated RBCs # 0.0 /100WBC 07/16/23 13:05 Sodium 143 mmol/L (136-145) 07/16/23 13:05 Potassium 4.8 mmol/L (3.5-5.1) 07/16/23 13:05 Chloride 98 mmol/L (98-107) 07/16/23 13:05 Carbon Dioxide 28 mmol/L (22-29) 07/16/23 13:05 Anion Gap 21.8 (5-19) H 07/16/23 13:05 BUN 41 mg/dL (8-23) H 07/16/23 13:05 Creatinine 1.9 mg/dL (0.5-0.9) H 07/16/23 13:05 GFR Calculation Not Reportable 07/16/23 13:05 Glucose 114 mg/dL (65-115) 07/16/23 13:05 Calculated Osmolality 307 mOsm/kg (285-295) H 07/16/23 13:05 Calcium 9.6 mg/dL (8.5-10.5) 07/16/23 13:05 Total Bilirubin 0.3 mg/dL (0.15-1.2) 07/16/23 13:05 AST 12 U/L (0-32) 07/16/23 13:05 ALT 10 U/L (0-33) 07/16/23 13:05 Alkaline Phosphatase 86 U/L (35-105) 07/16/23 13:05 NT-Pro-B Natriuret Pep 283 pg/mL (0-450) 07/16/23 13:05 Total Protein 8.2 g/dL (6.6-8.7) 07/16/23 13:05 Albumin 4.0 g/dL (3.5-5.2) 07/16/23 13:05 Globulin 4.2 g/dL (1.3-4.6) 07/16/23 13:05 All radiology interpretation(s) finalized by discharge Discharge Plan Discharge Patient Disposition: Admitted As Inpatient Admit Provider: Catarina Barger Clinical Impression: Chronic kidney disease (CKD), Closed fracture of humerus, shaft, Fracture of proximal humerus, Pneumonia, Diabetes, TAVO (acute kidney injury), COPD (chronic obstructive pulmonary disease) Condition: Stable Coding Level of Care Code ED Rn Placement for Jr [place]
[2023-07-16 13:38] LABS: Basophils # 0.1 10^3/uL (0.0-0.1); Basophils % 0.9 %; Eosinophils # 0.7 10^3/uL (0.0-0.8); Eosinophils % 5.4 %; Hematocrit 41.6 % (36-47); Lymphocytes % 23.6 %; Mean Corpuscular Hemoglobin 28.5 pg (27-33); Mean Corpuscular Volume 91.8 fl (85-98); Mean Platelet Volume 9.2 fL (7.4-10.4); Monocytes % 8.1 %; Neutrophils # 7.28 10^3/uL (1.8-7.7); Neutrophils % 57.9 %; Nucleated Red Blood Cells % 0 %; Platelet Count 313 10^3/cmm (157-399); Red Blood Count 4.53 10^6/uL (3.85-5.65); Red Cell Distribution Width 14.2 % (12.1-15.1); White Blood Count 12.58 10^3/uL (3.29-11.43)
[2023-07-16 13:53] LABS: Alanine Aminotransferase 10 U/L (0-33); Alkaline Phosphatase 86 U/L (35-105); Anion Gap 21.8 (5-19); Aspartate Amino Transferase 12 U/L (0-32); Blood Urea Nitrogen 41 mg/dL (8-23); Calcium 9.6 mg/dL (8.5-10.5); Carbon Dioxide 28 mmol/L (22-29); Chloride 98 mmol/L (98-107); Creatinine Clr Calc Pharmacy 24.4512; Globulin 4.2 g/dL (1.3-4.6); Glucose 114 mg/dL (65-115); Osmolality Calculated 307 mOsm/kg (285-295); Potassium 4.8 mmol/L (3.5-5.1); Sodium 143 mmol/L (136-145); Total Bilirubin 0.3 mg/dL (0.15-1.2); Total Protein 8.2 g/dL (6.6-8.7)
--- NOTE | 2023-07-16 15:30 | P.HP_ITS ---
Providers/Chief Complaint 2 Admitting Physician: Catarina Barger MD Primary Care Provider: Alem Auguste Chief Complaint: fall History of Present Illness Deyanira Gonsales is a 77 year old female who presented to the emergency room with chief complaint of pain in the right upper extremity after a fall at home. She says she was in her bathroom today when she tripped over something and fell landing on her right upper extremity and right hip on the hard bathroom floor. She had immediate pain in the right arm in particular. No reports of any chest pain, dizziness, vision changes, focal weakness or paresthesias or other acute symptoms preceding the fall. It was mechanical in nature. She was able to contact EMS though does not recall exactly how she accomplished that. They gave her some fentanyl and route for pain control given an obvious fracture in the right arm, humerus. Patient had decreased level of responsiveness and an increasing need for oxygen after this. She is chronically on oxygen at 2 L by nasal cannula for known history of COPD and sleep apnea. She is intolerant of CPAP therapy. In talking with her she denies any recent changes in her respiratory patterns. No increasing cough or sputum production. No increase in shortness of breath with the degree of exertion she does at baseline. No complaints of any chest pain. She has had normal bowel movements for her and no issues with urination. She had a fall in late January 2022 or early 2022 in which she had sustained fractures to her left humerus. Did not require surgical intervention at that time but followed with orthopedics until it healed. Fractures today are in her right upper extremity and include a proximal humerus fracture as well as a midshaft humeral fracture with displacement. Orthopedics has been consulted. Given comorbidities Mrs. Gonsales is being admitted to the hospitalist service. She usually lives alone. Primary care is Alem Auguste at [facility]. She has had multiple prior surgeries without any known anesthesia complications. She does take an aspirin daily but is not on any chronic anticoagulation. She is on a beta-emerald among other antihypertensive medications. She has a known history of chronic kidney disease as well as coronary artery disease with CABG back in 2004. Recent baseline creatinine not available. Last comparative labs are from 2021 when baseline creatinine was 0.9-1.0. Today BUN and creatinine are 41/1.9. She is on diuretic therapy and an ARB at home. No recent reports of any increasing edema or nonproductive cough. Echocardiogram from 2021 showed ejection fraction estimated at 65% with normal diastolic function. Mild pulmonary hypertension with PA pressures estimated at 39 mmHg were described. No recent stress test. She is on statin therapy and is also chronically on aspirin therapy. No recent complaints of any form of chest pain or other symptoms suggesting angina reported. She is on insulin therapy for her diabetes. She is usually able to attend to her ADLs. Workup in the ER today included a chest x-ray that was felt concerning for possibility of pneumonia. She had an elevated white count and also had an elevated lactic acid level at 6.2. Blood pressures, temperature and heart rate were stable without other indicators of sepsis. She did receive a dose of Levaquin empirically. She has not had any acute respiratory symptoms to speak of of late. On arrival to the floor patient was complaining of hip pain in addition to right upper extremity pain. Rating pain in the right upper extremity at 10 out of 10, worse than the hip pain. Review of Systems 2 General: Reports: Other (ROS as per HPI or as otherwise noted here) Medications/Allergies Home Medications Medication Instructions Recorded Confirmed Last Taken Type duloxetine 60 mg capsule,delayed 60 mg PO DAILY 06/20/19 07/16/23 07/16/23 History release sprinkle metformin 1,000 mg tablet 1,000 mg PO BID 06/20/19 07/16/23 07/16/23 History aspirin 81 mg tablet,delayed 81 mg PO DAILY #30 tabs 06/25/19 07/16/23 07/16/23 Rx release (Farzana Low Dose Aspirin) methocarbamol 500 mg tablet 500 mg PO QID PRN Muscle Spasms 06/25/19 07/16/23 Unknown Rx #14 tabs insulin glargine 100 unit/mL 55 unit SUBCUT QPM 12/12/21 07/16/23 07/15/23 History subcutaneous solution (Lantus U-100 Insulin) budesonide 180 mcg/actuation 1 inh inhalation BID #1 ea 12/20/21 07/16/23 07/16/23 Rx breath activated powder inhaler (Pulmicort Flexhaler) albuterol sulfate 2.5 mg/3 mL 2.5 mg inhalation Q6H PRN 07/16/23 07/16/23 Unknown History (0.083 %) solution for nebulization Shortness Of Breath atorvastatin 20 mg tablet 20 mg PO DAILY 07/16/23 07/16/23 07/16/23 History duloxetine 30 mg capsule,delayed 30 mg PO DAILY 07/16/23 07/16/23 07/16/23 History release furosemide 40 mg tablet 40 mg PO DAILY 07/16/23 07/16/23 07/16/23 History insulin lispro 100 unit/mL See Rx Instructions .Route 07/16/23 07/16/23 07/15/23 History subcutaneous pen (Humalog KwikPen .COMPLEX PRN blood sugar (U-100) Insulin) losartan 25 mg tablet 25 mg PO DAILY 07/16/23 07/16/23 07/16/23 History metoprolol tartrate 25 mg tablet 25 mg PO BID 07/16/23 07/16/23 07/16/23 History pantoprazole 40 mg tablet,delayed 40 mg PO DAILY 07/16/23 07/16/23 07/16/23 History release trazodone 50 mg tablet 50 mg PO BEDTIME PRN Insomnia 07/16/23 07/16/23 Unknown History umeclidinium 62.5 mcg-vilanterol 1 ea inhalation BID 07/16/23 07/16/23 07/16/23 History 25 mcg/actuation powdr for inhalation (Anoro Ellipta) Allergies Allergy/AdvReac Type Severity Reaction Status Date / Time acetaminophen [From Vicodin] Allergy ADR-Confusi Verified 10/23/22 07:49 on cephalexin Allergy ALGY-Hives Verified 10/23/22 07:49 fluticasone Allergy Unknown Verified 10/23/22 07:49 [From Advair Diskus] hydrocodone [From Vicodin] Allergy ADR-Confusi Verified 10/23/22 07:49 on nitrofurantoin Allergy ALGY-Hives Verified 10/23/22 07:49 [From Macrobid] salmeterol Allergy Unknown Verified 10/23/22 07:49 [From Advair Diskus] PFSH Acute 2 PFSH: Medical History (Updated 07/16/23 @ 17:58 by Catarina Barger MD) Hypertension Obstructive sleep apnea intolerant of cpap Coronary artery disease CKD (chronic kidney disease) stage 3, GFR 30-59 ml/min Pneumonia Stroke Coffee ground emesis 2021 Nephrolithiasis Peripheral neuropathy Depression Diabetes mellitus type 2 in obese COPD (chronic obstructive pulmonary disease) Chronically uses 2 L per nasal cannula Surgical History History of ankle surgery History of cataract surgery History of bladder surgery History of carpal tunnel surgery History of shoulder surgery History of appendectomy Hx of CABG 2004 Family History Other Dementia Social History (Updated 07/16/23 @ 18:26 by Catarina Barger MD) Smoking and tobacco/nicotine status: former use of tobacco/nicotine Quit status (tobacco/nicotine): has quit using Year quit tobacco: 12/2022 Alcohol intake: never Substance/Drug Use: never Vitals/I&O/Wt Last Vital Signs Pulse 54 L 07/16/23 14:51 Resp 18 07/16/23 13:35 BP 139/79 07/16/23 14:51 Pulse Ox 92 07/16/23 13:35 O2 Del Method Nasal Cannula 07/16/23 13:25 O2 Flow Rate 4 07/16/23 13:25 Weight last 48 hrs Weight 76.204 kg Physical Exam 2 Narrative: Patient is awake and alert. Able to provide history initially but after an attempt to reposition herself in bed pain in right upper extremity was such that it was difficult to get additional information secondary to pain. Fortunately history as documented here obtained at that point in time. Normocephalic. Patient has some lateral deviation of both eyes but pupils are equally reactive, not pinpoint. Oropharynx with moist mucous membranes. Neck is supple. Oxygen currently at 4 L by nasal cannula. Lungs are clear to auscultation bilaterally without any rales rhonchi or wheezes noted. Cardiovascular exam reveals a bradycardic but regular rhythm. Pulses are palpable in the right and left radial and ulnar areas as well as bilateral dorsalis pedis. Abdomen is soft with positive bowel sounds, nontender. Pelvis with some tenderness to palpation bilaterally, right greater than left but no visible bruising. Pain with abduction and abduction of right lower extremity more so than left lower extremity in the pelvic region difficult to quantify due to degree of pain in right upper extremity. Right upper extremity with a splint in place from EMS/ER. Pain with minimal movement noted. Able to move fingers on right hand and sensation is intact to light touch to all digits during my examination. No pitting edema to distal extremities. She does have some scratches to her right lower extremity and dry skin to both feet with brisk capillary refill noted. Data 07/16/23 13:05 07/16/23 13:05 Other Labs: Radiology Impressions Humerus X-Ray 07/16/23 13:29 IMPRESSION: 1. Comminuted/transverse fracture mid humeral shaft with half shaft width lateral displacement and posterior angulation. 2. Very high suspicion for an impacted fracture of the right humeral head/neck versus artifact from right arm rotation. Consider correlation with dedicated right shoulder films or noncontrast right shoulder CT. Chest X-Ray 07/16/23 13:36 IMPRESSION: 1. Bilateral perihilar and basal interstitial prominence. Could be related to bronchovascular crowding or mild pulmonary edema. 2. Displaced right mid humeral fracture. Please review humerus films performed concomitantly. 3. High suspicion for an impacted fracture of the right humeral head/neck. Please review humerus films performed concomitantly. PELVIS xray 07/16/23 FINDINGS: Limitations: Superimposition of soft tissues obscures bone detail. Single view of the pelvis is provided. Bones/joints: There are mild degenerative changes of the sacroiliac joints. No acutely displaced fracture. There is no evidence of joint dislocation. No aggressive osseous lesions. Soft tissues: Unremarkable. Vasculature: There are numerous benign phleboliths in the pelvis. Moderate vascular calcifications. IMPRESSION: No acute skeletal pathology, within the limits of this exam. Laboratory Results WBC 12.58 10^3/uL (3.29-11.43) H 07/16/23 13:05 RBC 4.53 10^6/uL (3.85-5.65) 07/16/23 13:05 Hgb 12.90 g/dL (11.27-16.99) 07/16/23 13:05 Hct 41.6 % (36-47) 07/16/23 13:05 MCV 91.8 fl (85-98) 07/16/23 13:05 MCH 28.5 pg (27-33) 07/16/23 13:05 MCHC 31.0 g/dL (30-55) 07/16/23 13:05 RDW 14.2 % (12.1-15.1) 07/16/23 13:05 Plt Count 313 10^3/cmm (157-399) 07/16/23 13:05 MPV 9.2 fL (7.4-10.4) 07/16/23 13:05 Neut % (Auto) 57.9 % 07/16/23 13:05 Lymph % (Auto) 23.6 % 07/16/23 13:05 [place] % (Auto) 8.1 % 07/16/23 13:05 Eos % (Auto) 5.4 % 07/16/23 13:05 Baso % (Auto) 0.9 % 07/16/23 13:05 Neut # (Auto) 7.28 10^3/uL (1.8-7.7) 07/16/23 13:05 Lymph # (Auto) 3.0 10^3/uL (0.8-4.8) 07/16/23 13:05 [place] # (Auto) 1.0 10^3/uL (0.2-0.9) H 07/16/23 13:05 Eos # (Auto) 0.7 10^3/uL (0.0-0.8) 07/16/23 13:05 Baso # (Auto) 0.1 10^3/uL (0.0-0.1) 07/16/23 13:05 Nucleated RBC % (auto) 0 % 07/16/23 13:05 Nucleated RBCs # 0.0 /100WBC 07/16/23 13:05 Sodium 143 mmol/L (136-145) 07/16/23 13:05 Potassium 4.8 mmol/L (3.5-5.1) 07/16/23 13:05 Chloride 98 mmol/L (98-107) 07/16/23 13:05 Carbon Dioxide 28 mmol/L (22-29) 07/16/23 13:05 Anion Gap 21.8 (5-19) H 07/16/23 13:05 BUN 41 mg/dL (8-23) H 07/16/23 13:05 Creatinine 1.9 mg/dL (0.5-0.9) H 07/16/23 13:05 GFR Calculation Not Reportable 07/16/23 13:05 Glucose 114 mg/dL (65-115) 07/16/23 13:05 Calculated Osmolality 307 mOsm/kg (285-295) H 07/16/23 13:05 Calcium 9.6 mg/dL (8.5-10.5) 07/16/23 13:05 Total Bilirubin 0.3 mg/dL (0.15-1.2) 07/16/23 13:05 AST 12 U/L (0-32) 07/16/23 13:05 ALT 10 U/L (0-33) 07/16/23 13:05 Alkaline Phosphatase 86 U/L (35-105) 07/16/23 13:05 Total Protein 8.2 g/dL (6.6-8.7) 07/16/23 13:05 Albumin 4.0 g/dL (3.5-5.2) 07/16/23 13:05 Globulin 4.2 g/dL (1.3-4.6) 07/16/23 13:05 Laboratory Tests 07/16/23 13:05 Lactic Acid 6.2 H* NT-Pro-B Natriuret Pep 283 Twelve-lead EKG today reviewed by me and compared to prior available EKGs from 2021. Today with sinus bradycardia at 55 bpm, though is on a beta-emerald. She has some nonspecific T wave changes that were also present back in December 2021. No acute ST segment changes noted. A&P Assessment and plan (1) Fall at home: Initial encounter, sustained fractures of the right upper extremity after a mechanical fall at home. She has had prior left upper extremity humerus fractures in late 2021/early 2022. Meets criteria for osteoporosis with additional fractures. The mid shaft fracture is displaced as is the proximal fracture. Both are present on admission from fall at home. Orthopedics has been consulted. Qualifiers: Encounter type: initial encounter Qualified Code(s): W19.XXXA - Unspecified fall, initial encounter; Y92.009 - Unspecified place in unspecified non-institutional (private) residence as the place of occurrence of the external cause (2) Closed fracture of humerus, shaft: See #1 above Qualifiers: Encounter type: initial encounter Fracture morphology: other fracture Laterality: right Qualified Code(s): S42.391A - Other fracture of shaft of right humerus, initial encounter for closed fracture (3) Fracture of proximal humerus: See #1 above Qualifiers: Encounter type: initial encounter Fracture alignment: displaced F racture morphology: other fracture Fracture type: closed Laterality: right Qualified Code(s): S42.291A - Other displaced fracture of upper end of right humerus, initial encounter for closed fracture (4) Pneumonia: Potential diagnoses present on admission from the emergency room, organism unknown. This is based on initial chest x-ray review combined with increased white blood count and increased oxygen requirement in a patient who was not able to provide history at the time. Patient herself denies any recent acute respiratory symptoms. She did require increase in oxygen from usual baseline of 2 L by nasal cannula after receiving pain medication by EMS. Has an elevated white count and elevated lactic acid, both of which could be reactive from trauma today. No evidence of sepsis at this time. Given lack of described preceding symptoms, acute infection seems less likely per my evaluation. Findings noted on imaging today reported by radiology as bilateral perihilar and basilar interstitial prominence that could be related to bronchovascular crowding or mild pulmonary edema. proBNP was checked and was within normal range and clinically does not have findings to suggest volume overload. Last available echocardiogram does reveal some pulmonary hypertension though normal EF. Increase in oxygen requirement reported to have occurred after receiving narcotic pain medication. Although she did have pain medicine after her last fracture a year ago she has not been on any narcotics recently. No reports of any pleuritic type chest discomfort or other chest pain or acute breathing problems per patient. (5) COPD (chronic obstructive pulmonary disease): Chronic bronchitis/emphysema treated with Anoro Ellipta, Pulmicort Flexhaler and as needed albuterol. She is also chronically on oxygen therapy at 2 L by nasal cannula though currently requiring 4 L after pain medication administration. (6) Coronary artery disease: History of coronary artery disease of the [place] with bypass surgery in 2004. Currently without angina based on history. Chronically on aspirin and statin therapy. (7) Chronic kidney disease (CKD): Stage III in the past with most recently available comparative labs from 2021 showing baseline around 1.0. Currently with elevated BUN and creatinine by comparison at 41/1.9. Unclear if this is progression of previously noted chronic kidney disease to stage IIIb versus acute kidney injury at this time. Is on diuretic and ARB therapy that might be a contributing factor. (8) Hypertension: Primary hypertension, possibly a secondary component due to pulmonary hypertension. Chronically on furosemide, losartan and metoprolol. Currently with some bradycardia on metoprolol though within a reasonable rate for her given history of coronary artery disease. BUN and creatinine increased from prior values though they are from 2021. Unclear if related to antihypertensive medications acutely though suspicion is that she has probably had some progression of chronic kidney disease. (9) Diabetes: Type II, insulin-requiring, with chronic kidney disease stage IIIb. Chronically on lantus, humalog and metformin. (10) Depression: Major depressive disorder, chronically on duloxetine (11) Obstructive sleep apnea: Intolerant of CPAP therapy, is on chronic oxygen Plan From a preoperative standpoint we will give patient some IV fluids overnight and recheck renal function . Current potassium level is acceptable. I am holding Lasix and losartan and decreasing her dose of metoprolol a bit so we will need to watch blood pressures. She does not describe any significant cardiopulmonary symptoms lately. She did require an increased amount of oxygen after receiving some pain medication. Incentive spirometer and breathing treatments are ordered. Her lactic acid is elevated that could be from combination of hypoxemia and trauma. No evidence of sepsis though will repeat the level as per protocol. Based on available information should be medically optimized for surgery to stabilize her right upper extremity as as needed. Inpatient admission Appreciate orthopedics input Plan is for CT imaging of the right upper extremity today before determining plan of care for that extremity Will keep n.p.o. in the event that she needs surgical intervention until that decision has been made Will need alternative support for right upper extremity pending decision regarding management Serial neurovascular exams of right upper extremity in the interim IV pain medicine currently with close monitoring given increased oxygen requirement earlier today after fentanyl administered by EMS Continuous pulse oximetry for now until we see how she does with alternative doses of pain medication Will add oral pain medication Has a history of confusion associated with hydrocodone so will have to watch with any narcotics Will benefit from OT and possibly PT evaluations prior to discharge Pelvis films were ordered by me and have been completed, not demonstrating evidence of fracture on study obtained With renal function will need to watch closely with ongoing pain management given risk of cumulative effect Will add scheduled laxatives and stool softeners Continue albuterol, inhaled budesonide and if available can continue home Anoro Ellipta Incentive spirometer I have not continued further antibiotics Will monitor for evidence of pneumonia or other infection Repeat lactic acid level to be done per protocol Blood cultures have been collected Baseline BNP was checked Will order an as needed EKG for any occurrences of chest pain IV fluids Will hold home Lasix and ARB currently Continue home beta-blockade though at a lower dose Continue a lower dose of long-acting insulin therapy Sliding scale insulin as needed Holding home metformin Continue home duloxetine Continuing home PPI Recheck renal function and repeat blood count in am Sitter ordered as patient at risk of fall and additional injury with pain medication, degree of pain, comorbidities. Pain is significant enough that she is having a hard time staying in bed, thinking that if she moves the pain may improve. She knows she should not try to move but indicates she cannot help it at times. VTE prophylaxis: SCDs currently secondary to potential need for surgery GI Prophylaxis: PPI, which patient is chronically on Antibiotics: Status post 1 dose of Levaquin in the emergency room. Have not continued additional antibiotics though if she goes to surgery will receive perioperative antibiotics. Pending studies: Sputum and urine are pending collection, blood cultures collected and received by lab, repeat lactic acid level pending, at the time of this dictation report from CT of the shoulder pending as well as decision regarding surgery Telemetry: Currently ordered secondary to change in mental status and drop in oxygen saturation after narcotics earlier today along with continuous pulse oximetry Smith: not currently indicated Line(s): peripheral IVs Disposition plan: Disposition will depend on clinical course. Patient lives alone. With multiple fractures in the right upper extremity and pain also reported in the pelvic region may require some assistance either in the home setting or outside of the home setting. Given previous fractures from falls, response to pain medication noted today to include change in mental status and decreased oxygen level at high risk of complications given comorbidities or even additional fractures should she have a fall. Code Status: Full Code Supportive care otherwise Findings, concerns and plans were discussed with patient and she was given an opportunity to ask questions Attestations 2 Medical Necessity Statement*: Anticipated stay greater than two midnights in this patient with 2 fractures to the right upper extremity after a fall at home. She had altered mental status and low oxygen levels after being administered narcotic pain medication and route to the hospital and is at high risk of additional injury in addition to need to have fractures addressed acutely. Some concern for pneumonia present on admission though patient denies any recent respiratory symptoms. She has comorbidities of chronic kidney disease, diabetes, known coronary artery disease, hypertension. Several medications are being held based on findings at presentation. In addition she will be seen by othropedics who will determine plan of care for RUE fractures. Diagnoses Fall in home, initial encounter W19.XXXA; Y92.009 Encounter type: initial encounter Other closed fracture of shaft of right humerus, initial encounter S42.391A Encounter type: initial encounter Fracture morphology: other fracture Laterality: right Other closed displaced fracture of proximal end of right humerus, initial encounter S42.291A Encounter type: initial encounter Fracture alignment: displaced Fracture morphology: other fracture Fracture type: closed Laterality: right Pneumonia J18.9 COPD (chronic obstructive pulmonary disease) J44.9 Coronary artery disease I25.10 Chronic kidney disease (CKD) N18.9 Hypertension I10 Diabetes E11.9 Depression F32.9 Obstructive sleep apnea G47.33
[2023-07-16] MEDS: sodium chloride 0.9% 1,000 ML 999 ML IV (15:37)
--- NOTE | 2023-07-16 16:14 | CTR_ITS ---
PROCEDURE INFORMATION: Exam: CT Right Upper Extremity Without Contrast, Shoulder Exam date and time: 07/16/2023 5:08 PM Age: 77 years old Clinical indication: Condition or disease; Other: FX; Additional info: Fracture TECHNIQUE: Imaging protocol: Computed tomography of the right upper extremity without contrast. Exam focused on the shoulder. Radiation optimization: All CT scans at this facility use at least one of these dose optimization techniques: automated exposure control; mA and/or kV adjustment per patient size (includes targeted exams where dose is matched to clinical indication); or iterative reconstruction. COMPARISON: 1[place] [id number] 07/16/2023 1:[address] angio chest w abd pel w con 12/30/2021 5:39 PM RADIATION DOSE METRICS: Total DLP (mGy-cm): 496 FINDINGS: Bones/joints: Comminuted fracture in the mid diaphysis of the right humerus with 1.7 cm medial overriding of the distal fragment. Stable severe degenerative changes of the right humeral head with spurring, subchondral cysts, and chronic sclerosis. Findings suggest a possible old healed fracture in the right humeral neck. No acute humeral neck fracture. Soft tissues: Normal. CT/CT shoulder RT wo con* [id number] IMPRESSION: 1. Comminuted overriding mid right humerus diaphyseal fracture. 2. Severe degenerative changes of the right humeral head with a suspected old healed neck fracture. Correlation with prior trauma history recommended. No acute humeral neck fracture.
--- NOTE | 2023-07-16 16:14 | XRR_ITS ---
PROCEDURE INFORMATION: Exam: XR Pelvis Exam date and time: 07/16/2023 4:35 PM Age: 77 years old Clinical indication: Injury or trauma; Fall; Blunt trauma (contusions or hematomas); Bilateral; Pelvic region TECHNIQUE: Imaging protocol: Radiologic exam of the pelvis. Views: 1 or 2 view. COMPARISON: CT angio chest w abd pel w con 12/30/2021 5:39 PM FINDINGS: Limitations: Superimposition of soft tissues obscures bone detail. Single view of the pelvis is provided. Bones/joints: There are mild degenerative changes of the sacroiliac joints. No acutely displaced fracture. There is no evidence of joint dislocation. No aggressive osseous lesions. Soft tissues: Unremarkable. Vasculature: There are numerous benign phleboliths in the pelvis. Moderate vascular calcifications. XR/XR pelvis 1-2V* [id number] IMPRESSION: No acute skeletal pathology, within the limits of this exam.
[2023-07-16] MEDS: morphine 4 mg/mL SDV 1 mL 1 MG IVP (16:28)
[2023-07-16 16:32] LABS: NT Pro B Type Natriuretic Pept 283 pg/mL (0-450)
[2023-07-16 16:53] LABS: Lactic Sepsis W/Reflex 6.2 mmol/L (0.5-2.2)
[2023-07-16 17:39] LABS: Reflex Lactate Order REFLEX LACTIC ORDERD
--- NOTE | 2023-07-16 18:12 | PC.NURSE ---
This nurse in room sitting with patient until 1:1 sitter can be obtained. Patient is currently resting in bed.
[2023-07-16] MEDS: sodium chloride 0.9% 1,000 ML 100 ML IV (18:45)
[2023-07-16] MEDS: levofloxacin-dextrose 5 % 750 MG/150 ML PREMIX 100 MG IV (18:45)
[2023-07-16 18:53] LABS: Lactic Acid level (Lactate) 3.9 mmol/L (0.5-2.2)
[2023-07-16] MEDS: methocarbamol 500 mg Tablet PO (19:23)
[2023-07-16] MEDS: morphine 4 mg/mL SDV 1 mL 2 MG IVP ×2 (19:42→23:38)
[2023-07-16] MEDS: budesonide 0.5 mg/2 mL Neb INHALATION (20:08)
[2023-07-16] MEDS: metoprolol tartrate 25 mg Tablet 12.5 MG PO (20:49)
[2023-07-16 20:50] LABS: Glucose Point of Care 199 mg/dL (70-110)
[2023-07-16] MEDS: TRAMadol 50 mg Tablet PO (22:01)
[2023-07-16] MEDS: acetaminophen 1,000 MG/100 ML PIGGYBACK 400 MG IV (22:02)
[2023-07-17] VITALS (11 sets, daily range): BP systolic 108–146; BP diastolic 56–70; PULSE 57–80; RESP 16–23; TEMP 36.4–36.8; O2SAT 90–93; BMI 32.0
[2023-07-17] MEDS: methocarbamol 500 mg Tablet PO (02:09)
[2023-07-17] MEDS: morphine 4 mg/mL SDV 1 mL 2 MG IVP ×3 (03:52→17:15)
[2023-07-17] MEDS: sodium chloride 0.9% 1,000 ML 100 ML IV ×3 (05:15→20:52)
[2023-07-17] MEDS: acetaminophen 1,000 MG/100 ML PIGGYBACK 400 MG IV ×2 (05:16→14:28)
[2023-07-17] MEDS: TRAMadol 50 mg Tablet PO ×2 (05:16→14:28)
[2023-07-17 06:00] LABS: Basophils # 0.1 10^3/uL (0.0-0.1); Basophils % 0.5 %; Eosinophils # 0.3 10^3/uL (0.0-0.8); Eosinophils % 2.5 %; Lymphocytes # 1.9 10^3/uL (0.8-4.8); Lymphocytes % 15.5 %; Mean Corpuscular HGB Conc 30.8 g/dL (30-55); Mean Corpuscular Hemoglobin 28.2 pg (27-33); Mean Corpuscular Volume 91.6 fl (85-98); Mean Platelet Volume 8.9 fL (7.4-10.4); Monocytes % 8.3 %; Neutrophils # 8.61 10^3/uL (1.8-7.7); Neutrophils % 70.8 %; Nucleated Red Blood Cells % 0 %; Platelet Count 249 10^3/cmm (157-399); Red Blood Count 3.93 10^6/uL (3.85-5.65); Red Cell Distribution Width 14.2 % (12.1-15.1); White Blood Count 12.15 10^3/uL (3.29-11.43)
[2023-07-17 06:14] LABS: Add Urine Microscopic? YES; Bacteria Urine 1+ /hpf; Bilirubin Urine Neg (Negative); Blood Urine Neg (Negative); Glucose Urine UA Norm (Normal); Ketones Urine Negative (Negative); Leukocyte Esterase Urine Trace (Negative); Nitrate Urine Negative (Negative); Protein Urine Neg (Negative); RBC Urine 0-4 /hpf (0-2); Specific Gravity, Urine 1.015 (1.005-1.030); Urine Appearance Clear (CLEAR); Urine Color Yellow (Yellow); Urobilinogen Urine Neg (Negative); pH Urine 5 (5-7)
[2023-07-17 06:15] LABS: Amorphous Sediment Urine TRACE /hpf; Calcium Oxalate Crystals Urine 0-4 /hpf; Coarse Granular Casts Urine 0-4 /lpf; Hyaline Casts Urine 0-4 /lpf; Mucus Urine TRACE /hpf
[2023-07-17 06:16] LABS: Anion Gap 15.9 (5-19); Blood Urea Nitrogen 44 mg/dL (8-23); Calcium 8.3 mg/dL (8.5-10.5); Carbon Dioxide 25 mmol/L (22-29); Chloride 101 mmol/L (98-107); Creatinine Clr Calc Pharmacy 27.9011; Glucose 160 mg/dL (65-115); Magnesium 1.3 mg/dL (1.7-2.3); Osmolality Calculated 299 mOsm/kg (285-295); Phosphorus 4.1 mg/dL (2.5-4.5); Potassium 4.9 mmol/L (3.5-5.1); Sodium 137 mmol/L (136-145)
[2023-07-17 06:35] LABS: Glucose Point of Care 155 mg/dL (70-110)
--- NOTE | 2023-07-17 08:20 | P.CONIM_ITS ---
Providers/Reason For Consult 2 Consulting Physician/Specialty*: Hospitalist Reason for Consult*: Right humerus shaft fracture Attending Physician: Zeyad Mosley MD Primary Care Provider: Alem Auguste History of Present Illness History of Present Illness Deyanira Gonsales is a 77 year old female sustained a fall breaking her midshaft right humerus fracture. CT scan was done which shows that the proximal humerus fracture is old. Review of Systems 2 Const: Denies: chills Card: Denies: chest pain Resp: Denies: dyspnea GI: Denies: abdominal pain Musc: Denies: neck pain or back pain Medications/Allergies Home Medications Medication Instructions Recorded Confirmed Last Taken Type duloxetine 60 mg capsule,delayed 60 mg PO DAILY 06/20/19 07/16/23 07/16/23 History release sprinkle metformin 1,000 mg tablet 1,000 mg PO BID 06/20/19 07/16/23 07/16/23 History aspirin 81 mg tablet,delayed 81 mg PO DAILY #30 tabs 06/25/19 07/16/23 07/16/23 Rx release (Farzana Low Dose Aspirin) methocarbamol 500 mg tablet 500 mg PO QID PRN Muscle Spasms 06/25/19 07/16/23 Unknown Rx #14 tabs insulin glargine 100 unit/mL 55 unit SUBCUT QPM 12/12/21 07/16/23 07/15/23 History subcutaneous solution (Lantus U-100 Insulin) budesonide 180 mcg/actuation 1 inh inhalation BID #1 ea 12/20/21 07/16/23 07/16/23 Rx breath activated powder inhaler (Pulmicort Flexhaler) albuterol sulfate 2.5 mg/3 mL 2.5 mg inhalation Q6H PRN 07/16/23 07/16/23 Unknown History (0.083 %) solution for nebulization Shortness Of Breath atorvastatin 20 mg tablet 20 mg PO DAILY 07/16/23 07/16/23 07/16/23 History duloxetine 30 mg capsule,delayed 30 mg PO DAILY 07/16/23 07/16/23 07/16/23 History release furosemide 40 mg tablet 40 mg PO DAILY 07/16/23 07/16/23 07/16/23 History insulin lispro 100 unit/mL See Rx Instructions .Route 07/16/23 07/16/23 07/15/23 History subcutaneous pen (Humalog KwikPen .COMPLEX PRN blood sugar (U-100) Insulin) losartan 25 mg tablet 25 mg PO DAILY 07/16/23 07/16/23 07/16/23 History metoprolol tartrate 25 mg tablet 25 mg PO BID 07/16/23 07/16/23 07/16/23 History pantoprazole 40 mg tablet,delayed 40 mg PO DAILY 07/16/23 07/16/23 07/16/23 History release trazodone 50 mg tablet 50 mg PO BEDTIME PRN Insomnia 07/16/23 07/16/23 Unknown History umeclidinium 62.5 mcg-vilanterol 1 ea inhalation BID 07/16/23 07/16/23 07/16/23 History 25 mcg/actuation powdr for inhalation (Anoro Ellipta) Allergies Allergy/AdvReac Type Severity Reaction Status Date / Time acetaminophen [From Vicodin] Allergy ADR-Confusi Verified 10/23/22 07:49 on cephalexin Allergy ALGY-Hives Verified 10/23/22 07:49 fluticasone Allergy Unknown Verified 10/23/22 07:49 [From Advair Diskus] hydrocodone [From Vicodin] Allergy ADR-Confusi Verified 10/23/22 07:49 on nitrofurantoin Allergy ALGY-Hives Verified 10/23/22 07:49 [From Macrobid] salmeterol Allergy Unknown Verified 10/23/22 07:49 [From Advair Diskus] Current Medications Generic Name Dose Route Start Last Admin Trade Name Freq PRN Reason Stop Dose Admin Budesonide 0.5 mg 07/16/23 20:00 07/16/23 20:08 Budesonide 0.5 Mg/2 Ml Neb INHALATION 0.5 mg BID.RESPIRATORY KARI Administration Sodium Chloride 1,000 mls @ 100 mls/hr 07/16/23 16:13 07/17/23 05:15 Sodium Chloride 0.9% IV 100 mls/hr .Q10H KARI Administration Acetaminophen 1,000 mg in 100 mls @ 400 mls/hr 07/16/23 22:00 07/17/23 05:40 Acetaminophen IV 07/17/23 14:14 Infused Q8H KARI Infusion Insulin Glargine 20 unit 07/16/23 18:00 07/16/23 18:27 Insulin Glargine 100 Units/1 Ml SUBCUT Not Given QPM [facility] Insulin Human Lispro 0 unit 07/16/23 21:00 07/16/23 20:48 Insulin Lispro 100 Unit/1 Ml SUBCUT Not Given BEDTIME [facility] Protocol Insulin Human Lispro 0 unit 07/16/23 18:00 07/16/23 18:28 Insulin Lispro 100 Unit/1 Ml SUBCUT Not Given TIDWM [facility] Protocol Methocarbamol 500 mg 07/16/23 16:57 07/17/23 02:09 Methocarbamol 500 Mg Tablet PO 500 mg QID PRN Administration Muscle Spasms Metoprolol Tartrate 12.5 mg 07/16/23 21:00 07/16/23 20:49 Metoprolol Tartrate 25 Mg Tablet PO 12.5 mg BID@0900,2100 [facility] Administration Morphine Sulfate 2 mg 07/16/23 16:13 07/17/23 03:52 Morphine 4 Mg/Ml Sdv 1 Ml IVP 2 mg Q4H PRN Administration SEVERE PAIN Tramadol HCl 50 mg 07/16/23 21:52 07/17/23 05:16 Tramadol 50 Mg Tablet PO 50 mg Q8H PRN Administration MODERATE PAIN PFSH Acute 2 PFSH: Medical History (Updated 07/16/23 @ 17:58 by Catarina Barger MD) Hypertension Obstructive sleep apnea intolerant of cpap Coronary artery disease CKD (chronic kidney disease) stage 3, GFR 30-59 ml/min Pneumonia Stroke Coffee ground emesis 2021 Nephrolithiasis Peripheral neuropathy Depression Diabetes mellitus type 2 in obese COPD (chronic obstructive pulmonary disease) Chronically uses 2 L per nasal cannula Surgical History History of ankle surgery History of cataract surgery History of bladder surgery History of carpal tunnel surgery History of shoulder surgery History of appendectomy Hx of CABG 2004 Family History Other Dementia Social History (Updated 07/16/23 @ 18:26 by Catarina Barger MD) Smoking and tobacco/nicotine status: former use of tobacco/nicotine Quit status (tobacco/nicotine): has quit using Year quit tobacco: 12/2022 Alcohol intake: never Substance/Drug Use: never Vitals/I&O/Wt Last Vital Signs Temp 97.8 F 07/17/23 07:39 Pulse 69 07/17/23 07:39 Resp 18 07/17/23 07:39 BP 122/68 07/17/23 07:39 Pulse Ox 90 07/17/23 07:39 O2 Del Method Nasal Cannula 07/17/23 07:39 O2 Flow Rate 1 07/16/23 20:14 07/16/23 07/17/23 07/17/23 22:59 06:59 14:59 Intake Total 1650 / 1650 1320 / 2970 Balance 1650 / 1650 1320 / 2970 Weight last 48 hrs Weight 175 lb Weight 168 lb Weight 168 lb Physical Exam 2 Narrative: Patient asleep in bed unable to get physical exam. Data 07/17/23 05:20 07/17/23 05:20 Micro: Microbiology 07/16/23 17:35 Blood Culture - Preliminary Blood SPECIMEN COLLECTED 07/16/23 17:30 Blood Culture - Preliminary Blood SPECIMEN COLLECTED A&P Assessment and plan (1) Closed fracture of humerus, shaft: Patient has a right humeral shaft fracture. The proximal humerus fracture is old and healed. Ordered a coaptation splint for the humerus. Nonweightbearing right upper extremity. Okay from orthopedic standpoint to follow-up in the clinic. Qualifiers: Encounter type: initial encounter Fracture morphology: other fracture Laterality: right Qualified Code(s): S42.391A - Other fracture of shaft of right humerus, initial encounter for closed fracture Coding Level of Care Code Acute Code for Chg Fwd Diagnoses Other closed fracture of shaft of right humerus, initial encounter S42.391A Encounter type: initial encounter Fracture morphology: other fracture Laterality: right
[2023-07-17] MEDS: budesonide 0.5 mg/2 mL Neb INHALATION ×2 (08:35→20:03)
--- NOTE | 2023-07-17 09:49 | PC.CHAP ---
Pastoral Care Encounter/Spiritual Assessment Type of Contact [] Declined hotel desk clerk visit [] Patient/Family/Request visit [] Outpatient visit [] Follow-up visit [] Physician referral [] Code/Alert [] Routine visit [] Staff referral [] Actively dying [] Patient sleeping [] Family support [] [] Out of room [] Palliative care [] [x] Receiving care in room [] Pre-surgical visit [] Trauma [] Long length of stay [] ICU visit [] Other: Relational/Emotional Strength [] Patient feels connected with others/family/visitors/staff [] Distress [] Loneliness/isolation [] Abandonment Spirituality of Patient [] Person of Olga Lidia [] Attends Mu-Ism of their [place]ga Lidia [] Believes in Prayer [] Reads Bible or Anabaptist materials [] There are Spiritual issues to be addressed Beef Breaker Interventions [] Prayer [] Active listening [] Non-anxious presence [] Spiritual/emotional support [] Crisis/trauma care [] Spiritual counseling [] Bereavement support [] Provided bereavement packet [] Provided Bible/devotional materials [] Provided toy/stuffed animal, coloring book to patient or family member [] Provided Communion [] Anointing/Hot [place] [] Salvation [] Completed spiritual assessment [] Other: Impact on Illness or Injury [] Angry [] Fearful [] Anxious [] Often cries [] Exhaustion [] Unable to work [] Unable to attend yazidi [] Unable to walk/stand [] Unable to read [] Unable to drive [] Unable to eat/drink [] Unable to sleep [] Unable to be with family [] Patient intubated [] Other: Summary Time spent with patient
[2023-07-17 10:10] LABS: Glucose Point of Care 191 mg/dL (70-110)
[2023-07-17] MEDS: atorvastatin 40 mg Tablet PO (10:10)
[2023-07-17] MEDS: pantoprazole DR 40 mg Tablet PO (10:10)
[2023-07-17] MEDS: duloxetine 30 MG, duloxetine 60 MG 90 MG PO (10:10)
[2023-07-17] MEDS: sennosides-docusate Tablet 1 TAB PO (10:11)
[2023-07-17] MEDS: metoprolol tartrate 25 mg Tablet 12.5 MG PO ×2 (10:14→20:57)
[2023-07-17] MEDS: insulin lispro 100 unit/1 mL SUBCUT ×4 (10:21→20:58)
[2023-07-17 10:28] LABS: Iron 51 ug/dL (37-145); Percent Saturation 20.4 % (20-50); Total Iron Binding Capacity 250 mcg/dl; Unsaturated Iron Binding 199 ug/dL (112-347); Vitamin B12 399 pg/mL (232-1245)
[2023-07-17 12:01] LABS: Glucose Point of Care 172 mg/dL (70-110)
[2023-07-17 13:55] LABS: Add Urine Microscopic? NO
--- NOTE | 2023-07-17 14:10 | P.PN_ITS ---
Subjective 2 Subjective: Admitted yesterday. H&P and labs appreciated. On examination patient is awake and alert, slightly slow to respond but able to have complete conversation. Denies any chest pain, nausea, vomiting, headache. Denies of having any chest pain. Complaining of pain in the arm. Vitals/I&O/Wt Last Vital Signs Temp 97.8 F 07/17/23 07:39 Pulse 70 07/17/23 08:42 Resp 16 07/17/23 08:00 BP 122/68 07/17/23 07:39 Pulse Ox 90 07/17/23 08:00 O2 Del Method Nasal Cannula 07/17/23 08:00 O2 Flow Rate 1 07/17/23 08:00 07/16/23 07/17/23 07/17/23 22:59 06:59 14:59 Intake Total 1650 / 1650 1320 / 2970 680 / 680 Output Total 1200 / 1200 Balance 1650 / 1650 1320 / 2970 -520 / -520 Weight last 48 hrs Weight 79.379 kg Weight 76.204 kg Weight 76.204 kg Physical Exam 2 Narrative: General: No acute distress, AO x 2-3, slow to respond, nasal cannula HEENT: PERRLA, pupils bilaterally equal and reactive Chest: Bilateral bronchial breath sounds with occasional rhonchi, coarse crackles present in bilateral middle lobe CVS: S1-S2 regular, no murmurs, no tachycardia, no gallops, no rubs Abdomen: Soft, nontender, no organomegaly, bowel sounds present Neuro: No focal deficits, no facial deformity, AO x3, power 5/5 in all limbs Extremity: Right arm in splint Urinary Catheter Management: Smith: Cath Placed During This Visit: yes Urinary Catheter Date of Insertion: 07/17/23 Urinary Catheter Time of Insertion: 11:44 Data 07/17/23 05:20 07/17/23 05:20 Micro: Microbiology 07/16/23 17:35 Blood Culture - Preliminary Blood SPECIMEN COLLECTED 07/16/23 17:30 Blood Culture - Preliminary Blood SPECIMEN COLLECTED A&P Assessment and plan (1) Fall at home: Initial encounter, sustained fractures of the right upper extremity after a mechanical fall at home. Complains of occasional dizziness. Check orthostatic blood pressures. Telemetry. Qualifiers: Encounter type: initial encounter Qualified Code(s): W19.XXXA - Unspecified fall, initial encounter; Y92.009 - Unspecified place in unspecified non-institutional (private) residence as the place of occurrence of the external cause (2) Closed fracture of humerus, shaft: Appreciate orthopedic recommendations. Plan to follow-up as an outpatient. Splint ordered. Occupational Therapy awaited. Qualifiers: Encounter type: initial encounter Fracture morphology: other fracture Laterality: right Qualified Code(s): S42.391A - Other fracture of shaft of right humerus, initial encounter for closed fracture (3) Fracture of proximal humerus: Tramadol 50 mg every 6 hourly as needed, patient allergic to [place]. Morphine 1 mg every 4 hours as needed for breakthrough pain Qualifiers: Encounter type: initial encounter Fracture alignment: displaced F racture morphology: other fracture Fracture type: closed Laterality: right Qualified Code(s): S42.291A - Other displaced fracture of upper end of right humerus, initial encounter for closed fracture (4) Pneumonia: Concerns for pneumonia admission because of worsening oxygenation than baseline. Baseline patient needs 2 L of oxygen supplementation. Patient did have mild leukocytosis and some possible consolidation on chest x- ray though patient has been asymptomatic. Worsening hypoxia could be in the setting of IV fentanyl she received on route. Patient did receive Levaquin in the ER today. Hold off on antibiotics for now. If has worsening leukocytosis we will plan for further antibiotics. Follow-up blood cultures. Check sputum culture, urine Legionella and bacterial antigen. (5) COPD (chronic obstructive pulmonary disease): Chronic bronchitis/emphysema treated with Anoro Ellipta, Pulmicort Flexhaler and as needed albuterol. She is also chronically on oxygen therapy at 2 L by nasal cannula. Continue with Pulmicort. Add DuoNeb every 6 hours. (6) Coronary artery disease: History of coronary artery disease of the [place] heart with bypass surgery in 2004. Currently without angina based on history. Chronically on aspirin and statin therapy. (7) Chronic kidney disease (CKD): Stage III in the past with most recently available comparative labs from 2021 showing baseline around 1.0. Currently with elevated BUN and creatinine by comparison at 41/1.9 on admission. Slight improvement. Medical reconstruction done for nephrotoxic drugs. Hold off on home dose of losartan. Continue with IV fluids at 100 cc/h. Check urine lites, urine electrolytes. Check renal ultrasound. Monitor BMP daily for now. (8) Hypertension: Goal blood pressure less than 140/90 mmHg. At home takes losartan 25 mg oral daily, metoprolol 25 mg twice daily. Continue with metoprolol. Holding off on losartan for now. Uptitrate as for goal blood pressures. (9) Diabetes: Type II, insulin-requiring, with chronic kidney disease stage IIIb. Chronically on lantus, humalog and metformin. Check A1c. Continue with Lantus at 30 units nightly. Takes 55 units at home. Insulin sliding scale before meals and at bedtime. (10) Depression: Major depressive disorder, chronically on duloxetine (11) Obstructive sleep apnea: Intolerant of CPAP therapy, is on chronic oxygen (12) Urinary retention: Smith catheter placed in 1200 urine evacuated. Strict input charting. Start on Flomax 0.4 daily. Plan Discharge plan: Plan to discharge to SNF for further rehabitation. Patient lives by herself and has been having recurrent episodes of fall. Physical therapy evaluation requested. Case management alerted. VTE prophylaxis: SCDs, heparin 5000 every 12 hourly for DVT prophylaxis GI Prophylaxis: PPI, which patient is chronically on Code Status: Full Code Attestations 2 Medical Necessity Statement*: Requires further hospitalization for management of mechanical fall leading to humerus fracture, acute kidney injury, recurrent dizziness, hypoxia while safe discharge planning is sought Diagnoses Fall in home, initial encounter W19.XXXA; Y92.009 Encounter type: initial encounter Other closed fracture of shaft of right humerus, initial encounter S42.391A Encounter type: initial encounter Fracture morphology: other fracture Laterality: right Other closed displaced fracture of proximal end of right humerus, initial encounter S42.291A Encounter type: initial encounter Fracture alignment: displaced Fracture morphology: other fracture Fracture type: closed Laterality: right Pneumonia J18.9 COPD (chronic obstructive pulmonary disease) J44.9 Coronary artery disease I25.10 Chronic kidney disease (CKD) N18.9 Hypertension I10 Diabetes E11.9 Depression F32.9 Obstructive sleep apnea G47.33 Urinary retention R33.9
[2023-07-17 14:49] LABS: Bilirubin Urine Neg (Negative); Blood Urine Neg (Negative); Glucose Urine UA Norm (Normal); Ketones Urine Negative (Negative); Leukocyte Esterase Urine Negative (Negative); Nitrate Urine Negative (Negative); Protein Urine Neg (Negative); Specific Gravity, Urine 1.015 (1.005-1.030); Urine Appearance Clear (CLEAR); Urine Color Yellow (Yellow); Urobilinogen Urine Neg (Negative); pH Urine 5 (5-7)
[2023-07-17 14:58] LABS: Potassium, Radom Urine 42 mmol/L; Urine Creatinine 67 mg/dL (28-217); Urine Random Chloride 43 mmol/L; Urine Random Sodium 42 mmol/L
[2023-07-17 15:32] LABS: Eosinophil Urine Eosinophils Seen; Urine Eosinophil Count 2 (0-0)
[2023-07-17] MEDS: tamsulosin 0.4 mg Capsule 0.400000000000000022 MG PO (15:52)
[2023-07-17] MEDS: heparin 5,000 unit/mL INJ 1 mL 5000 UNIT SUBCUT (15:52)
[2023-07-17 16:51] LABS: Glucose Point of Care 170 mg/dL (70-110)
[2023-07-17] MEDS: insulin glargine 100 units/1 mL 30 UNIT SUBCUT (17:14)
--- NOTE | 2023-07-17 17:40 | PC.NURSE ---
This RN has attempted multiple times to obtain orthostatic blood pressures. Pt is refusing to sit to side of bed or stand. MD aware. Orthostatics OK'd to wait until morning when working with physical therapy.
[2023-07-17] MEDS: ipratropium-albuterol 3 mL Neb INHALATION (20:03)
[2023-07-17 20:31] LABS: Glucose Point of Care 205 mg/dL (70-110)
[2023-07-18] VITALS (13 sets, daily range): BP systolic 90–128; BP diastolic 53–68; PULSE 72–107; RESP 16–24; TEMP 36.4–37; O2SAT 90–94
[2023-07-18] MEDS: morphine 4 mg/mL SDV 1 mL 2 MG IVP ×2 (02:03→07:39)
[2023-07-18] MEDS: heparin 5,000 unit/mL INJ 1 mL 5000 UNIT SUBCUT ×2 (02:05→14:15)
[2023-07-18] MEDS: ipratropium-albuterol 3 mL Neb INHALATION ×4 (02:54→20:15)
[2023-07-18 05:44] LABS: Basophils # 0.1 10^3/uL (0.0-0.1); Basophils % 0.5 %; Eosinophils # 0.4 10^3/uL (0.0-0.8); Eosinophils % 4.8 %; Hematocrit 32.2 % (36-47); Lymphocytes # 1.2 10^3/uL (0.8-4.8); Lymphocytes % 13.4 %; Mean Corpuscular HGB Conc 30.4 g/dL (30-55); Mean Corpuscular Hemoglobin 28.5 pg (27-33); Mean Corpuscular Volume 93.6 fl (85-98); Mean Platelet Volume 9.1 fL (7.4-10.4); Monocytes # 0.8 10^3/uL (0.2-0.9); Monocytes % 8.3 %; Neutrophils # 6.61 10^3/uL (1.8-7.7); Neutrophils % 71.4 %; Nucleated Red Blood Cells % 0 %; Platelet Count 211 10^3/cmm (157-399); Red Blood Count 3.44 10^6/uL (3.85-5.65); Red Cell Distribution Width 14.3 % (12.1-15.1); White Blood Count 9.26 10^3/uL (3.29-11.43)
[2023-07-18] MEDS: sodium chloride 0.9% 1,000 ML 100 ML IV ×2 (05:55→14:16)
[2023-07-18 06:05] LABS: Alanine Aminotransferase 9 U/L (0-33); Albumin Level 3.3 g/dL (3.5-5.2); Alkaline Phosphatase 68 U/L (35-105); Anion Gap 14.6 (5-19); Aspartate Amino Transferase 14 U/L (0-32); Blood Urea Nitrogen 32 mg/dL (8-23); Calcium 7.7 mg/dL (8.5-10.5); Carbon Dioxide 23 mmol/L (22-29); Chloride 104 mmol/L (98-107); Creatinine Clr Calc Pharmacy 36.8395; Globulin 3.4 g/dL (1.3-4.6); Glucose 200 mg/dL (65-115); Osmolality Calculated 297 mOsm/kg (285-295); Potassium 4.6 mmol/L (3.5-5.1); Sodium 137 mmol/L (136-145); Total Bilirubin 0.3 mg/dL (0.15-1.2); Total Protein 6.7 g/dL (6.6-8.7)
[2023-07-18 06:07] LABS: Chol HDL Ratio 2.49 mg/dL (0.0-4.40); Cholesterol 102 mg/dL (0-200); HDL Cholesterol 41 mg/dL (60-100); LDL Cholesterol Calculated 38 mg/dL (50-129); Magnesium 1.3 mg/dL (1.7-2.3); Triglycerides 116 mg/dL (0-150); VLDL Cholestrol Calculation 23 mg/dL (0-30)
[2023-07-18 06:12] LABS: Estmated Average Glucose 209; Hemoglobin A1C 8.9 % (4.0-6.0)
[2023-07-18 06:21] LABS: Glucose Point of Care 204 mg/dL (70-110)
[2023-07-18 06:23] LABS: Folate Level 15.9 ng/mL (4.8-37.3)
[2023-07-18] MEDS: methocarbamol 500 mg Tablet PO (07:40)
[2023-07-18] MEDS: duloxetine 30 MG, duloxetine 60 MG 90 MG PO (07:40)
[2023-07-18] MEDS: pantoprazole DR 40 mg Tablet PO (07:40)
[2023-07-18] MEDS: tamsulosin 0.4 mg Capsule 0.400000000000000022 MG PO (07:41)
[2023-07-18] MEDS: TRAMadol 50 mg Tablet PO ×2 (07:41→20:36)
[2023-07-18] MEDS: atorvastatin 40 mg Tablet PO (07:41)
[2023-07-18] MEDS: budesonide 0.5 mg/2 mL Neb INHALATION ×2 (07:50→20:15)
[2023-07-18] MEDS: insulin lispro 100 unit/1 mL SUBCUT ×3 (08:30→17:28)
[2023-07-18] MEDS: metoprolol tartrate 25 mg Tablet 12.5 MG PO ×2 (08:31→20:36)
[2023-07-18] MEDS: sennosides-docusate Tablet 1 TAB PO ×2 (08:31→17:28)
[2023-07-18] MEDS: magnesium sulfate premix 2 GM/50 ML PIGGYBACK IV (08:31)
--- NOTE | 2023-07-18 09:40 | US_ITS ---
WS: [id number] ULTRASOUND RENAL TECHNIQUE: Ultrasound examination of both kidneys. CLINICAL INFORMATION: Dru COMPARISON: None. FINDINGS: RIGHT: Right kidney is normal in size and appearance. Echogenicity: Normal. Hydronephrosis: None. Perinephric fluid: None. Right kidney measures: 10.8 cm x 5.3 cm x 5.4 cm. LEFT: Markedly atrophic LEFT kidney Echogenicity: Increased Hydronephrosis: None. Perinephric fluid: None. Left kidney measures: 5.8 cm x 2.9 cm x 3.0 cm. Normal visualized aorta. US/US renal BI* [id number] IMPRESSION: 1. No hydronephrosis in either kidney. 2. Normal RIGHT kidney. 3. Markedly atrophic echogenic LEFT kidney probably with poor function. 4. Smith catheter.
[2023-07-18] MEDS: oxyCODONE-APAP 5-325 mg Tablet 1 TAB PO ×3 (10:25→23:47)
--- NOTE | 2023-07-18 10:28 | P.PN_ITS ---
Subjective 2 Subjective: Patient is resting comfortably in chair. Vitals/I&O/Wt Last Vital Signs Temp 98.5 F 07/18/23 07:34 Pulse 102 H 07/18/23 10:16 Resp 18 07/18/23 07:52 BP 116/63 07/18/23 10:16 Pulse Ox 92 07/18/23 07:52 O2 Del Method Nasal Cannula 07/18/23 07:52 O2 Flow Rate 2 07/18/23 07:52 07/17/23 07/18/23 07/18/23 22:59 06:59 14:59 Intake Total 981.667 / 1661.667 965 / 2626.667 50 / 50 Output Total 600 / 1800 Balance 981.667 / 461.667 365 / 826.667 50 / 50 Weight last 48 hrs Weight 178 lb 4.8 oz Weight 175 lb Weight 168 lb Weight 168 lb Physical Exam 2 Narrative: Patient is resting comfortably coaptation splint in place Urinary Catheter Management: Smith: Cath Placed During This Visit: yes Reason for Continuing Indwelling Catheter: Acute Urinary Retention or Obstruction Urinary Catheter Date of Insertion: 07/17/23 Urinary Catheter Time of Insertion: 11:44 Data 07/18/23 04:43 07/18/23 04:43 Micro: Microbiology 07/16/23 17:35 Blood Culture - Preliminary Blood NEGATIVE TO DATE 07/16/23 17:30 Blood Culture - Preliminary Blood NEGATIVE TO DATE A&P Assessment and plan (1) Closed fracture of humerus, shaft: Right humerus fracture Follow-up in orthopedic clinic in 2 weeks. Qualifiers: Encounter type: initial encounter Fracture morphology: other fracture Laterality: right Qualified Code(s): S42.391A - Other fracture of shaft of right humerus, initial encounter for closed fracture Attestations 2 Medical Necessity Statement*: Per primary service Coding Level of Care Code Acute Code for Chg Fwd Diagnoses Other closed fracture of shaft of right humerus, initial encounter S42.391A Encounter type: initial encounter Fracture morphology: other fracture Laterality: right
[2023-07-18 11:36] LABS: Glucose Point of Care 250 mg/dL (70-110)
--- NOTE | 2023-07-18 12:33 | PC.SOCIAL ---
IMM Updated Updated pt & family on IMM. No questions voiced. Provided pt a copy. Initialed, dated, & timed a copy & placed in chart.
--- NOTE | 2023-07-18 13:37 | PM.PN ---
Subjective Subjective: No acute events overnight. Patient has remained hemodynamically stable and afebrile. Today morning seen sitting up in chair. States she is feeling sleepy after getting her last pain medications. Complaining of more pain. Asking if pain medications can be changed or increased. Denies any nausea, vomiting, headache. Urine output appropriate. Vitals/I&O/Wt Last Vital Signs Temp 98.6 F 07/18/23 10:49 Pulse 79 07/18/23 13:24 Resp 18 07/18/23 13:24 BP 117/65 07/18/23 10:49 Pulse Ox 93 07/18/23 13:24 O2 Del Method Nasal Cannula 07/18/23 13:24 O2 Flow Rate 2 07/18/23 13:24 07/17/23 07/18/23 07/18/23 22:59 06:59 14:59 Intake Total 981.667 / 1661.667 965 / 2626.667 50 / 50 Output Total 600 / 1800 Balance 981.667 / 461.667 365 / 826.667 50 / 50 Weight last 48 hrs Weight 80.876 kg Weight 79.379 kg Weight 76.204 kg Physical Exam Narrative: General: No acute distress, AO x 2-3, slow to respond, more awake, states is sleepy, on nasal cannula HEENT: PERRLA, pupils bilaterally equal and reactive Chest: Bilateral bronchial breath sounds with occasional rhonchi, coarse crackles present in bilateral middle lobe CVS: S1-S2 regular, no murmurs, no tachycardia, no gallops, no rubs Abdomen: Soft, nontender, no organomegaly, bowel sounds present Neuro: No focal deficits, no facial deformity, AO x3, power 5/5 in all limbs Extremity: Right arm in splint Urinary Catheter Management: Smith: Cath Placed During This Visit: yes Reason for Continuing Indwelling Catheter: Acute Urinary Retention or Obstruction Urinary Catheter Date of Insertion: 07/17/23 Urinary Catheter Time of Insertion: 11:44 Data 07/18/23 04:43 07/18/23 04:43 Micro: Microbiology 07/16/23 17:35 Blood Culture - Preliminary Blood NEGATIVE TO DATE 07/16/23 17:30 Blood Culture - Preliminary Blood NEGATIVE TO DATE A&P Assessment and plan (1) Fall at home: Initial encounter, sustained fractures of the right upper extremity after a mechanical fall at home. Complains of occasional dizziness could be in setting of polypharmacy or hypoglycemia as patient's blood sugars are slightly elevated but fairly controlled while being on low-dose of Lantus. Check orthostatic blood pressures negative. Telemetry. Qualifiers: Encounter type: initial encounter Qualified Code(s): W19.XXXA - Unspecified fall, initial encounter; Y92.009 - Unspecified place in unspecified non-institutional (private) residence as the place of occurrence of the external cause (2) Closed fracture of humerus, shaft: Appreciate orthopedic recommendations. Plan to follow-up as an outpatient. Splint ordered. Occupational Therapy awaited. Qualifiers: Encounter type: initial encounter Fracture morphology: other fracture Laterality: right Qualified Code(s): S42.391A - Other fracture of shaft of right humerus, initial encounter for closed fracture (3) Fracture of proximal humerus: Tramadol 50 mg every 6 hourly as needed, patient allergic to [place]. Stop morphine as patient is drowsy after that. Start on oxycodone 5 mg every 6 hours as needed. Qualifiers: Encounter type: initial encounter Fracture alignment: displaced Fracture morphology: other fracture Fracture type: closed Laterality: right Qualified Code(s): S42.291A - Other displaced fracture of upper end of right humerus, initial encounter for closed fracture (4) Pneumonia: Concerns for pneumonia admission because of worsening oxygenation than baseline. Baseline patient needs 2 L of oxygen supplementation. Patient did have mild leukocytosis and some possible consolidation on chest x-ray though patient has been asymptomatic. Worsening hypoxia could be in the setting of IV fentanyl she received on route. Patient did receive Levaquin in the ER today. Hold off on antibiotics for now. If has worsening leukocytosis we will plan for further antibiotics. Blood cultures so far negative, urine Legionella and bacterial antigen negative. Sputum culture pending. Hypoxia seems to have resolved. (5) COPD (chronic obstructive pulmonary disease): Chronic bronchitis/emphysema treated with Anoro Ellipta, Pulmicort Flexhaler and as needed albuterol. She is also chronically on oxygen therapy at 2 L by nasal cannula. Continue with Pulmicort, DuoNeb every 6 hours. (6) Coronary artery disease: History of coronary artery disease of the [place] heart with bypass surgery in 2004. Currently without angina based on history. Chronically on aspirin and statin therapy. (7) Chronic kidney disease (CKD): Stage III in the past with most recently available comparative labs from 2021 showing baseline around 1.0. Currently with elevated BUN and creatinine by comparison at 41/1.9 on admission. Continues to improve. Renal ultrasound negative for obstructive nephropathy Medical reconstruction done for nephrotoxic drugs. Hold off on home dose of losartan. Continue with IV fluids at 100 cc/h. Appreciate urine lites, urine electrolytes. Urine eosinophils elevated. Monitor BMP daily for now. (8) Hypertension: Goal blood pressure less than 140/90 mmHg. At home takes losartan 25 mg oral daily, metoprolol 25 mg twice daily. Continue with metoprolol. Holding off on losartan for now. Uptitrate as for goal blood pressures. So far blood pressure stable off losartan. (9) Diabetes: Type II, insulin-requiring, with chronic kidney disease stage IIIb. Chronically on lantus, humalog and metformin. A1c 8.9. Blood sugar slightly elevated but fairly controlled. The last 24 hours patient has had 8 units of Humalog and 30 units of Lantus Increase Lantus to 35 units nightly. Takes 55 units at home. Insulin sliding scale before meals and at bedtime. (10) Depression: Major depressive disorder, chronically on duloxetine (11) Obstructive sleep apnea: Intolerant of CPAP therapy, is on chronic oxygen (12) Urinary retention: Smith catheter placed in 1200 urine evacuated. Strict input charting. Start on Flomax 0.4 daily. Plan Discharge plan: Plan to discharge to SNF for further rehabitation. Patient lives by herself and has been having recurrent episodes of fall. Physical therapy evaluation requested. Case management alerted. VTE prophylaxis: SCDs, heparin 5000 every 12 hourly for DVT prophylaxis GI Prophylaxis: PPI, which patient is chronically on Code Status: Full Code Attestations Medical Necessity Statement*: Requires further hospitalization for management of TAVO in setting of dehydration, dizziness in setting of polypharmacy leading to hypoglycemia and mild hypotension leading to fall and humerus fracture while safe discharge planning is sought Diagnoses Fall in home, initial encounter W19.XXXA; Y92.009 Encounter type: initial encounter Other closed fracture of shaft of right humerus, initial encounter S42.391A Encounter type: initial encounter Fracture morphology: other fracture Laterality: right Other closed displaced fracture of proximal end of right humerus, initial encounter S42.291A Encounter type: initial encounter Fracture alignment: displaced Fracture morphology: other fracture Fracture type: closed Laterality: right Pneumonia J18.9 COPD (chronic obstructive pulmonary disease) J44.9 Coronary artery disease I25.10 Chronic kidney disease (CKD) N18.9 Hypertension I10 Diabetes E11.9 Depression F32.9 Obstructive sleep apnea G47.33 Urinary retention R33.9
[2023-07-18 16:55] LABS: Glucose Point of Care 182 mg/dL (70-110)
--- NOTE | 2023-07-18 16:55 | XRR_ITS ---
PROCEDURE INFORMATION: Exam: XR Right Humerus Exam date and time: 07/18/2023 5:50 PM Age: 77 years old Clinical indication: Injury or trauma; Fall; Other: Pain; Additional info: Fracture TECHNIQUE: Imaging protocol: Radiologic exam of the right humerus. Views: 2 or more views. COMPARISON: [place] [id number] 07/16/2023 1:35 PM FINDINGS: Bones/joints: There is a transverse fracture through the mid right humeral diaphysis. There is increasing dorsal angulation of the distal fracture fragment. There is old fracture of the proximal right humerus. There is osteopenia. Soft tissues: Normal. XR/[place] [id number] IMPRESSION: When compared with 07/16/2023, there is increasing dorsal angulation of the distal fracture fragment.
[2023-07-18] MEDS: insulin glargine 100 units/1 mL 35 UNIT SUBCUT (17:27)
[2023-07-18 21:03] LABS: Glucose Point of Care 127 mg/dL (70-110)
[2023-07-19] VITALS (9 sets, daily range): BP systolic 105–118; BP diastolic 59–76; PULSE 73–89; RESP 16–20; TEMP 36.5–36.7; O2SAT 91–96; BMI 33.2
[2023-07-19] MEDS: heparin 5,000 unit/mL INJ 1 mL 5000 UNIT SUBCUT ×2 (02:42→15:21)
[2023-07-19] MEDS: ipratropium-albuterol 3 mL Neb INHALATION ×2 (02:46→07:59)
[2023-07-19] MEDS: sodium chloride 0.9% 1,000 ML 100 ML IV ×2 (03:22→13:45)
[2023-07-19 06:10] LABS: Glucose Point of Care 134 mg/dL (70-110)
[2023-07-19 06:40] LABS: Alanine Aminotransferase 9 U/L (0-33); Albumin Level 2.9 g/dL (3.5-5.2); Alkaline Phosphatase 61 U/L (35-105); Blood Urea Nitrogen 19 mg/dL (8-23); Calcium 7.9 mg/dL (8.5-10.5); Carbon Dioxide 20 mmol/L (22-29); Chloride 108 mmol/L (98-107); Creatinine Clr Calc Pharmacy 43.9424; Globulin 3.5 g/dL (1.3-4.6); Glucose 131 mg/dL (65-115); Osmolality Calculated 290 mOsm/kg (285-295); Sodium 138 mmol/L (136-145); Total Bilirubin 0.4 mg/dL (0.15-1.2); Total Protein 6.4 g/dL (6.6-8.7)
[2023-07-19 06:47] LABS: Anion Gap 14.7 (5-19); Potassium 4.7 mmol/L (3.5-5.1)
[2023-07-19 06:48] LABS: Basophils % 0.6 %; Eosinophils # 0.4 10^3/uL (0.0-0.8); Eosinophils % 5.7 %; Hematocrit 29.7 % (36-47); Lymphocytes # 1.2 10^3/uL (0.8-4.8); Lymphocytes % 18.6 %; Mean Corpuscular HGB Conc 30.3 g/dL (30-55); Mean Corpuscular Volume 95.8 fl (85-98); Monocytes # 0.6 10^3/uL (0.2-0.9); Monocytes % 9.2 %; Neutrophils # 4.28 10^3/uL (1.8-7.7); Neutrophils % 64.5 %; Nucleated Red Blood Cells % 0 %; Platelet Count 183 10^3/cmm (157-399); Red Cell Distribution Width 14.4 % (12.1-15.1); White Blood Count 6.63 10^3/uL (3.29-11.43)
[2023-07-19 06:48] LABS: Aspartate Amino Transferase 15 U/L (0-32)
[2023-07-19 06:53] LABS: Magnesium 1.9 mg/dL (1.7-2.3)
[2023-07-19] MEDS: oxyCODONE-APAP 5-325 mg Tablet 1 TAB PO ×2 (07:02→15:33)
[2023-07-19] MEDS: budesonide 0.5 mg/2 mL Neb INHALATION (07:59)
[2023-07-19] MEDS: sennosides-docusate Tablet 1 TAB PO (08:22)
[2023-07-19] MEDS: metoprolol tartrate 25 mg Tablet 12.5 MG PO (08:22)
[2023-07-19] MEDS: tamsulosin 0.4 mg Capsule 0.400000000000000022 MG PO (08:22)
[2023-07-19] MEDS: atorvastatin 40 mg Tablet PO (08:22)
[2023-07-19] MEDS: pantoprazole DR 40 mg Tablet PO (08:22)
[2023-07-19] MEDS: duloxetine 30 MG, duloxetine 60 MG 90 MG PO (08:22)
--- NOTE | 2023-07-19 08:40 | P.PN_ITS ---
Subjective 2 Subjective: Patient is pleasantly confused lying in bed. Vitals/I&O/Wt Last Vital Signs Temp 97.8 F 07/19/23 08:00 Pulse 73 07/19/23 08:00 Resp 18 07/19/23 08:00 BP 115/70 07/19/23 08:00 Pulse Ox 96 07/19/23 08:00 O2 Del Method Nasal Cannula 07/19/23 07:59 O2 Flow Rate 2 07/19/23 07:59 07/18/23 07/19/23 07/19/23 22:59 06:59 14:59 Intake Total 1011.667 / 1896.667 Output Total 400 / 1400 300 / 1700 Balance -400 / -515 711.667 / 196.667 Weight last 48 hrs Weight 181 lb 8 oz Weight 178 lb 4.8 oz Physical Exam 2 Narrative: Patient's arm is resting on pillow with a coaptation brace and her x-ray of her humerus shows a skin alignment Urinary Catheter Management: Smith: Cath Placed During This Visit: yes Reason for Continuing Indwelling Catheter: Acute Urinary Retention or Obstruction Urinary Catheter Date of Insertion: 07/17/23 Urinary Catheter Time of Insertion: 11:44 Data 07/19/23 06:32 07/19/23 05:35 A&P Assessment and plan (1) Closed fracture of humerus, shaft: He was in good alignment in the brace. Will plan to treat nonoperatively. Follow-up orthopedic clinic in 2 weeks. Qualifiers: Encounter type: initial encounter Fracture morphology: other fracture Laterality: right Qualified Code(s): S42.391A - Other fracture of shaft of right humerus, initial encounter for closed fracture Attestations 2 Medical Necessity Statement*: Per primary service Coding Level of Care Code Acute Code for Chg Fwd Diagnoses Other closed fracture of shaft of right humerus, initial encounter S42.391A Encounter type: initial encounter Fracture morphology: other fracture Laterality: right
[2023-07-19] MEDS: TRAMadol 50 mg Tablet PO (09:19)
[2023-07-19 11:10] LABS: Glucose Point of Care 176 mg/dL (70-110)
[2023-07-19] MEDS: insulin lispro 100 unit/1 mL SUBCUT (11:14)
--- NOTE | 2023-07-19 13:33 | P.DS_ITS ---
Discharge Providers Date of Admission: 07/16/23 15:30 Date of Discharge: July 19, 2023 Attending Provider at Admission: Catarina Barger MD Attending Provider at Discharge: Zeyad Mosley MD Primary Care Provider: Alem Auguste Diagnoses at Discharge Discharge Diagnosis (1) Closed fracture of humerus, shaft: Status: Acute Qualifiers: Encounter type: initial encounter Fracture morphology: other fracture Laterality: right Qualified Code(s): S42.391A - Other fracture of shaft of right humerus, initial encounter for closed fracture Reason for Visit Reason for Visit: fall Brief History: History as per HPI: Deyanira Gonsales is a 77 year old female who presented to the emergency room with chief complaint of pain in the right upper extremity after a fall at home. She says she was in her bathroom today when she tripped over something and fell landing on her right upper extremity and right hip on the hard bathroom floor. She had immediate pain in the right arm in particular. No reports of any chest pain, dizziness, vision changes, focal weakness or paresthesias or other acute symptoms preceding the fall. It was mechanical in nature. She was able to contact EMS though does not recall exactly how she accomplished that. They gave her some fentanyl and route for pain control given an obvious fracture in the right arm, humerus. Patient had decreased level of responsiveness and an increasing need for oxygen after this. She is chronically on oxygen at 2 L by nasal cannula for known history of COPD and sleep apnea. She is intolerant of CPAP therapy. In talking with her she denies any recent changes in her respiratory patterns. No increasing cough or sputum production. No increase in shortness of breath with the degree of exertion she does at baseline. No complaints of any chest pain. She has had normal bowel movements for her and no issues with urination. She had a fall in late January 2022 or early 2022 in which she had sustained fractures to her left humerus. Did not require surgical intervention at that time but followed with orthopedics until it healed. Fr actures today are in her right upper extremity and include a proximal humerus fracture as well as a midshaft humeral fracture with displacement. Orthopedics has been consulted. Given comorbidities Mrs. Gonsales is being admitted to the hospitalist service. She usually lives alone. Primary care is Alem Auguste at [facility]. She has had multiple prior surgeries without any known anesthesia complications. She does take an aspirin daily but is not on any chronic anticoagulation. She is on a beta-emerald among other antihypertensive medications. She has a known history of chronic kidney disease as well as coronary artery disease with CABG back in 2004. Recent baseline creatinine not available. Last comparative labs are from 2021 when baseline creatinine was 0.9-1.0. Today BUN and creatinine are 41/1.9. She is on diuretic therapy and an ARB at home. No recent reports of any increasing edema or nonproductive cough. Echocardiogram from 2021 showed ejection fraction estimated at 65% with normal diastolic function. Mild pulmonary hypertension with PA pressures estimated at 39 mmHg were described. No recent stress test. She is on statin therapy and is also chronically on aspirin therapy. No recent complaints of any form of chest pain or other symptoms suggesting angina reported. She is on insulin therapy for her diabetes. She is usually able to attend to her ADLs Hospital Course Hospital Course Patient was admitted to the hospital further evaluation and management in setting of fall leading to right humeral fracture. On admission patient was hypoxic which is thought in setting of excessive pain medication given en route to the ER. Pneumonia was ruled out. Patient remained hemodynamically stable and afebrile on baseline oxygen supplementation after 24 hours of antibiotics.. During hospitalization she was found to have acute kidney injury for which she received IV fluids and her kidney functions are back to baseline. She was seen by orthopedic surgery who recommended splinting, physical therapy and to follow- up in outpatient clinic in 2 weeks. She is been discharged back to SNF in hemodynamically stable condition with adjusted medications with advised to follow-up with primary care provider within next 1 week and orthopedic clinic in 2 weeks. Physical Exam Narrative: General: No acute distress, AO x 2-3, slow to respond, more awake, states is sleepy, on nasal cannula HEENT: PERRLA, pupils bilaterally equal and reactive Chest: Bilateral bronchial breath sounds with occasional rhonchi, coarse crackles present in bilateral middle lobe CVS: S1-S2 regular, no murmurs, no tachycardia, no gallops, no rubs Abdomen: Soft, nontender, no organomegaly, bowel sounds present Neuro: No focal deficits, no facial deformity, AO x3, power 5/5 in all limbs Extremity: Right arm in splint Urinary Catheter Management: Smith: Cath Placed During This Visit: yes Reason for Continuing Indwelling Catheter: Acute Urinary Retention or Obstruction Urinary Catheter Date of Insertion: 07/17/23 Urinary Catheter Time of Insertion: 11:44 Discharge Data Studies Completed and Pending Completed Studies During Hospitalization Category Date Time Status CT shoulder RT wo con* [id number] Routine Cat Scan 07/16/23 16:14 Completed XR chest 1V portable [id number] Stat Exams 07/16/23 13:36 [place] [id number] Routine Exams 07/18/23 16:55 [place] [id number] Stat Exams 07/16/23 13:29 Completed XR pelvis 1-2V* [id number] Routine Exams 07/16/23 16:14 Completed US renal BI* [id number] Routine Ultrasound 07/18/23 09:40 Completed Pending at discharge Category Date Time Status Blood Culture Stat Lab 07/16/23 17:35 Results MAG [Magnesium] AM LABS Lab 07/20/23 04:00 Ordered SARS Covid-2 Antigen Stat Lab 07/19/23 13:27 Uncollected Sputum Culture and Gram Stain Stat Lab 07/16/23 14:22 Uncollected Radiology Impressions Chest X-Ray 07/16/23 13:36 IMPRESSION: 1. Bilateral perihilar and basal interstitial prominence. Could be related to bronchovascular crowding or mild pulmonary edema. 2. Displaced right mid humeral fracture. Please review humerus films performed concomitantly. 3. High suspicion for an impacted fracture of the right humeral head/neck. Please review humerus films performed concomitantly. Pelvis X-Ray 07/16/23 16:14 IMPRESSION: No acute skeletal pathology, within the limits of this exam. Shoulder CT 07/16/23 16:14 IMPRESSION: 1. Comminuted overriding mid right humerus diaphyseal fracture. 2. Severe degenerative changes of the right humeral head with a suspected old healed neck fracture. Correlation with prior trauma history recommended. No acute humeral neck fracture. Renal Ultrasound 07/18/23 09:40 IMPRESSION: 1. No hydronephrosis in either kidney. 2. Normal RIGHT kidney. 3. Markedly atrophic echogenic LEFT kidney probably with poor function. 4. Smith catheter. Humerus X-Ray 07/18/23 16:55 IMPRESSION: When compared with 07/16/2023, there is increasing dorsal angulation of the distal fracture fragment. Laboratory Results WBC 6.63 10^3/uL (3.29-11.43) 07/19/23 06:32 RBC 3.10 10^6/uL (3.85-5.65) L 07/19/23 06:32 Hgb 9.00 g/dL (11.27-16.99) L 07/19/23 06:32 Hct 29.7 % (36-47) L 07/19/23 06:32 MCV 95.8 fl (85-98) 07/19/23 06:32 MCH 29.0 pg (27-33) 07/19/23 06:32 MCHC 30.3 g/dL (30-55) 07/19/23 06:32 RDW 14.4 % (12.1-15.1) 07/19/23 06:32 Plt Count 183 10^3/cmm (157-399) 07/19/23 06:32 MPV 9.0 fL (7.4-10.4) 07/19/23 06:32 Neut % (Auto) 64.5 % 07/19/23 06:32 Lymph % (Auto) 18.6 % 07/19/23 06:32 Wilkes % (Auto) 9.2 % 07/19/23 06:32 Eos % (Auto) 5.7 % 07/19/23 06:32 Baso % (Auto) 0.6 % 07/19/23 06:32 Neut # (Auto) 4.28 10^3/uL (1.8-7.7) 07/19/23 06:32 Lymph # (Auto) 1.2 10^3/uL (0.8-4.8) 07/19/23 06:32 Wilkes # (Auto) 0.6 10^3/uL (0.2-0.9) 07/19/23 06:32 Eos # (Auto) 0.4 10^3/uL (0.0-0.8) 07/19/23 06:32 Baso # (Auto) 0.0 10^3/uL (0.0-0.1) 07/19/23 06:32 Nucleated RBC % (auto) 0 % 07/19/23 06:32 Nucleated RBCs # 0.0 /100WBC 07/19/23 06:32 Sodium 138 mmol/L (136-145) 07/19/23 05:35 Potassium 4.7 mmol/L (3.5-5.1) 07/19/23 05:35 Chloride 108 mmol/L (98-107) H 07/19/23 05:35 Carbon Dioxide 20 mmol/L (22-29) L 07/19/23 05:35 Anion Gap 14.7 (5-19) 07/19/23 05:35 BUN 19 mg/dL (8-23) 07/19/23 05:35 Creatinine 1.1 mg/dL (0.5-0.9) H 07/19/23 05:35 GFR Calculation Not Reportable 07/19/23 05:35 Glucose 131 mg/dL (65-115) H 07/19/23 05:35 POC Glucose 176 mg/dL (70-110) H 07/19/23 11:06 Estimat Average Glucose 209 07/18/23 04:43 Hemoglobin A1c 8.9 % (4.0-6.0) H 07/18/23 04:43 Calculated Osmolality 290 mOsm/kg (285-295) 07/19/23 05:35 Lactic Acid 6.2 mmol/L (0.5-2.2) H* 07/16/23 13:05 Lactic Acid (Sepsis) 3.9 mmol/L (0.5-2.2) H 07/16/23 18:05 Calcium 7.9 mg/dL (8.5-10.5) L 07/19/23 05:35 Phosphorus 4.1 mg/dL (2.5-4.5) 07/17/23 05:20 Magnesium 1.9 mg/dL (1.7-2.3) 07/19/23 05:35 Iron 51 ug/dL (37-145) 07/17/23 05:20 TIBC 250 mcg/dl 07/17/23 05:20 % Saturation 20.4 % (20-50) 07/17/23 05:20 Unsat Iron Binding 199 ug/dL (112-347) 07/17/23 05:20 Total Bilirubin 0.4 mg/dL (0.15-1.2) 07/19/23 05:35 AST 15 U/L (0-32) 07/19/23 05:35 ALT 9 U/L (0-33) 07/19/23 05:35 Alkaline Phosphatase 61 U/L (35-105) 07/19/23 05:35 NT-Pro-B Natriuret Pep 283 pg/mL (0-450) 07/16/23 13:05 Total Protein 6.4 g/dL (6.6-8.7) L 07/19/23 05:35 Albumin 2.9 g/dL (3.5-5.2) L 07/19/23 05:35 Globulin 3.5 g/dL (1.3-4.6) 07/19/23 05:35 Triglycerides 116 mg/dL (0-150) 07/18/23 04:43 Cholesterol 102 mg/dL (0-200) 07/18/23 04:43 LDL Cholesterol, Calc 38 mg/dL (50-129) L 07/18/23 04:43 Total VLDL Cholesterol 23 mg/dL (0-30) 07/18/23 04:43 HDL Cholesterol 41 mg/dL (60-100) L 07/18/23 04:43 Cholesterol/HDL Ratio 2.49 mg/dL (0.0-4.40) 07/18/23 04:43 Vitamin B12 399 pg/mL (232-1245) 07/17/23 05:20 Folate 15.9 ng/mL (4.8-37.3) 07/18/23 04:43 TSH 2.70 uIU/mL (0.27-4.20) 07/17/23 05:20 Urine Color Yellow (Yellow) 07/17/23 14:30 Urine Appearance Clear (CLEAR) 07/17/23 14:30 Urine pH 5 (5-7) 07/17/23 14:30 Ur Specific Kane 1.015 (1.005-1.030) 07/17/23 14:30 Urine Protein Neg (Negative) 07/17/23 14:30 Urine Glucose (UA) Norm (Normal) 07/17/23 14:30 Urine Ketones Negative (Negative) 07/17/23 14:30 Urine Blood Neg (Negative) 07/17/23 14:30 Urine Nitrate Negative (Negative) 07/17/23 14:30 Urine Bilirubin Neg (Negative) 07/17/23 14:30 Urine Urobilinogen Neg mg/dL (Negative) 07/17/23 14:30 Ur Leukocyte Esterase Negative (Negative) 07/17/23 14:30 Urine RBC 0-4 /hpf (0-2) H 07/17/23 05:40 Urine WBC 5-10 /hpf (0-5) H 07/17/23 05:40 Ur Eosinophil Smear 2 (0-0) H 07/17/23 14:30 Ur Squamous Epith Cells 5-10 /hpf (0-5) H 07/17/23 05:40 Calcium Oxalate Crystal 0-4 /hpf H 07/17/23 05:40 Amorphous Sediment Trace /hpf 07/17/23 05:40 Urine Bacteria 1+ /hpf (NONE) H 07/17/23 05:40 Hyaline Casts 0-4 /lpf H 07/17/23 05:40 Coarse Granular Casts 0-4 /lpf H 07/17/23 05:40 Urine Mucus Trace /hpf 07/17/23 05:40 Urine Eosinophils Eosinophils seen H 07/17/23 14:30 Ur Random Sodium 42 mmol/L 07/17/23 14:30 Ur Random Potassium 42 mmol/L 07/17/23 14:30 Ur Random Chloride 43 mmol/L 07/17/23 14:30 Urine Creatinine 67 mg/dL (28-217) 07/17/23 14:30 Blood Type O Positive 07/16/23 17:35 Rho(D) Type Rh positive 07/16/23 17:35 Antibody Screen Negative 07/16/23 17:35 Vitals Last Vital Signs Temp 98 F 07/19/23 12:00 Pulse 75 07/19/23 12:00 Resp 20 H 07/19/23 12:00 BP 118/76 07/19/23 12:00 Pulse Ox 93 07/19/23 12:00 O2 Del Method Nasal Cannula 07/19/23 07:59 O2 Flow Rate 2 07/19/23 08:00 Discharge Plan Discharge Patient Disposition: Home Condition: Stable Prescriptions: New oxycodone-acetaminophen 5-325 mg Tablet 1 tab PO Q6H PRN (Reason: Moderate Pain) Qty: 2 0RF tramadol 50 mg Tablet 50 mg PO Q6H PRN (Reason: Moderate Pain) Qty: 2 0RF tamsulosin 0.4 mg Capsule 0.4 mg PO DAILY Qty: 30 0RF Continued duloxetine 60 mg Capsule, Delayed Rel Sprinkle 60 mg PO DAILY Rx Instructions: Take with 30mg tablet to equal 90mg methocarbamol 500 mg Tablet 500 mg PO QID PRN (Reason: Muscle Spasms) Qty: 14 0RF aspirin [Farzana Low Dose Aspirin] 81 mg tablet,delayed release (DR/EC) 81 mg PO DAILY Qty: 30 0RF atorvastatin 20 mg tablet 20 mg PO DAILY albuterol sulfate 2.5 mg /3 mL (0.083 %) solution for nebulization 2.5 mg inhalation Q6H PRN (Reason: Shortness Of Breath) trazodone 50 mg tablet 50 mg PO BEDTIME PRN (Reason: Insomnia) Humalog KwikPen Insulin 100 unit/mL insulin pen See Rx Instructions .ROUTE .COMPLEX PRN (Reason: blood sugar) Rx Instructions: Sliding Scale insulin as directed subcutaneously 3 times per day with meals metoprolol tartrate 25 mg tablet 25 mg PO BID duloxetine 30 mg capsule,delayed release(DR/EC) 30 mg PO DAILY Rx Instructions: Take with 60mg tablet to equal 90mg Anoro Ellipta 62.5-25 mcg/actuation blister with device 1 ea INHALATION BID pantoprazole 40 mg tablet,delayed release (DR/EC) 40 mg PO DAILY insulin glargine [Lantus U-100 Insulin] 100 unit/mL solution 55 unit SUBCUT QPM Pulmicort Flexhaler 180 mcg/actuation aerosol powdr breath activated 1 inh inhalation BID Qty: 1 0RF Changed furosemide 40 mg tablet 40 mg PO DAILY PRN (Reason: Swelling) Qty: 2 0RF Discontinued metformin 1,000 mg Tablet 1,000 mg PO BID losartan 25 mg tablet 25 mg PO DAILY Referrals: León Martin DO [Physician] - 2 weeks Alem Auguste PA [Primary Care Provider] - 7-10 days Discharge Diet: Usual diet and Diabetic Discharge Activity: Resume usual activity and Increase activity as tolerated Patient Instructions: Opioid Safety Activity Restrictions/Additional Instructions: Nonweightbearing right upper extremity Follow-up in orthopedic clinic in 2 weeks Continue with usual diet. Take Lasix only as needed for lower limb swelling Follow-up with urology as an outpatient within next 2 weeks. If Smith catheter remains in place for more than 1 month it should be replaced. Do not take losartan and metformin anymore. Discharge Attestations Time Spent in Discharge Care*: greater than 30 min Specific Discharge Activities: educating patient, discussing with pcp/other providers, discussing with dependency case manager/social workers/dc planners, documenting/other paperwork and evaluating patient/reviewing data Status at Discharge: Cognitive status at discharge: mildly impaired cognition , Behavioral status at discharge: cooperative , Functional status at discharge: other assisted ambulation , Overall status at discharge: patient is back to baseline Quality Metrics Clinical Quality Measures [ No reported AMI, CVA or VTE this stay] Coding Level of Care Code 51331 Total time (in minutes) for Discharge: 60 Diagnoses Other closed fracture of shaft of right humerus, initial encounter S42.391A Encounter type: initial encounter Fracture morphology: other fracture Laterality: right
[2023-07-19 14:25] LABS: SARS Covid-2 Antigen negative (Negative)
--- NOTE | 2023-07-19 15:59 | PC.NURSE ---
Pt discharged to [facility] with villa in place per 's orders.
== END 2023-07-19 13:58 | disposition skilled nursing facility (03) | DRG 562 ==
LOC: ER 14:31 → MEDSURG 15:30
PROVIDERS: Admitting Provider Hospitalist; Emergency Provider Family Medicine; PCP Physician Assistant; Visit Provider Student in an Organized Health Care Education/Training Program
DX: S42.391A Other fracture of shaft of right humerus, initial encounter for closed fracture (principal); J18.9 Pneumonia, unspecified organism; N17.9 Acute kidney failure, unspecified; W01.0XXA Fall on same level from slipping, tripping and stumbling without subsequent striking against object, initial encounter; Z99.81 Dependence on supplemental oxygen; J44.9 Chronic obstructive pulmonary disease, unspecified; Z79.82 Long term (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; Z87.891 Personal history of nicotine dependence; E11.22 Type 2 diabetes mellitus with diabetic chronic kidney disease; N18.30 Chronic kidney disease, stage 3 unspecified; Z79.84 Long term (current) use of oral hypoglycemic drugs; Z79.4 Long term (current) use of insulin; I25.10 Atherosclerotic heart disease of native coronary artery without angina pectoris; Z95.1 Presence of aortocoronary bypass graft; I12.9 Hypertensive chronic kidney disease with stage 1 through stage 4 chronic kidney disease, or unspecified chronic kidney disease; G47.33 Obstructive sleep apnea (adult) (pediatric); E11.42 Type 2 diabetes mellitus with diabetic polyneuropathy; R33.9 Retention of urine, unspecified
CPT/HCPCS: 36415; 36416; 51702; 71045; 72170; 73060; 73200; 76770; 80048; 80053; 80061; 81001; 82436; 82570; 82607; 82746; 82962; 83036; 83540; 83550; 83605; 83735; 83880; 84100; 84133; 84300; 84443; 85025; 85999; 86850; 86900; 87040; 87426; 93005; 94640; 94762; 96365; 96372; 97110; 97162; 97165; 97530; 97535; 99285; A4565; J0131; J1644; J1815; J1956; J2270; J3475; J7030; J7626

== ENCOUNTER → 2023-08-02 10:55 | Outpatient (BNVA) | payer MEDICARE, MEDICAID, SELFPAY | PROVIDERS: PCP Physician Assistant; Visit Provider Orthopaedic Surgery | DX: Z01.812 Encounter for preprocedural laboratory examination (principal); S42.291A Other displaced fracture of upper end of right humerus, initial encounter for closed fracture; X58.XXXA Exposure to other specified factors, initial encounter; M79.603 Pain in arm, unspecified | CPT/HCPCS: 36415; 73060; 80053; 85025; 99214 ==

== ENCOUNTER 2023-08-03 09:14 | Day surgery (SDC) | payer MEDICARE, MEDICAID, SELFPAY ==
[2023-08-03] VITALS (11 sets, daily range): BP systolic 108–141; BP diastolic 47–60; PULSE 55–70; RESP 17–18; TEMP 36.1–36.3; O2SAT 92–100; BMI 31.3
--- NOTE | 2023-08-03 | XR_ITS ---
WS: [id number] [place] [id number] REASON FOR EXAM: SARAH PICS FINDINGS: Plate and screw fixation of comminuted fracture of the midshaft of the right humerus. Surgical appliances are intact and in proper position and alignment. Fracture fragments are in good position and alignment. XR/[place] [id number] IMPRESSION: Mid right humeral fracture with internal fixation without abnormality.
[2023-08-03] MEDS: fentaNYL 50 mcg/mL INJ 2mL IVP (09:56)
[2023-08-03] MEDS: sodium chloride 0.9% 1,000 ML 30 ML IV (09:57)
[2023-08-03 10:10] LABS: Glucose Point of Care 168 mg/dL (70-110)
--- NOTE | 2023-08-03 10:32 | ANES.PREANE2 ---
Pre-Anesthetic Assessment Height/Weight: Height 1.6 m Weight 80.286 kg Temp Pulse Resp BP Pulse Ox O2 Del Method O2 Flow Rate 97.0 F L 55 L 17 129/57 98 Nasal Cannula 2 08/03/23 09:42 08/03/23 09:42 08/03/23 09:56 08/03/23 09:42 08/03/23 09:56 08/03/23 09:50 08/03/23 09:50 Preop Diagnosis: Right midshaft humerus fracture Operation Date: 08/03/23 10:50 Proposed Procedures p ORIF Proximal Humerus(Right) - León Martin, DO Familial anesthetic complications: None Was Beta Solis taken within 24 hours: N/A Was Clonidine taken within 24 hours: N/A Last intake: Intake Last Liquid Date 08/02/23 Last Liquid Time 18:00 Last Solid Date 08/02/23 Last Solid Time 17:30 Social No alcohol and No tobacco Quit smoking in december Exam alert, oriented x 3, clear to auscultation bilaterally and regular rate & rhythm Airway Mallampati: Class IV Pulmonary Chronic Obstructive Pulmonary Disease ( L NC) and Sleep Apnea Possible pneumonia in early july CV/HEM Coronary Artery Disease (CABG in 2004) and Hypertension mild Pulm HTN EF 65% Chronic Renal Insufficiency Metabolic Diabetes Mellitus and Hyperlipidemia Anesthetic Plan ASA status: 4 Anesthesia: General and Regional (specify below) Risk of > 500 ml blood loss (7ml/kg in children): No Medications/Allergies Home Medications Medication Instructions Recorded Confirmed Last Taken Type duloxetine 60 mg capsule,delayed 60 mg PO DAILY 06/20/19 08/02/23 07/16/23 History release sprinkle aspirin 81 mg tablet,delayed 81 mg PO DAILY #30 tabs 06/25/19 08/02/23 07/16/23 Rx release (Farzana Low Dose Aspirin) methocarbamol 500 mg tablet 500 mg PO QID PRN Muscle Spasms 06/25/19 08/02/23 Unknown Rx #14 tabs insulin glargine 100 unit/mL 55 unit SUBCUT QPM 12/12/21 08/02/23 07/15/23 History subcutaneous solution (Lantus U-100 Insulin) budesonide 180 mcg/actuation 1 inh inhalation BID #1 ea 12/20/21 08/02/23 07/16/23 Rx breath activated powder inhaler (Pulmicort Flexhaler) albuterol sulfate 2.5 mg/3 mL 2.5 mg inhalation Q6H PRN 07/16/23 08/02/23 Unknown History (0.083 %) solution for nebulization Shortness Of Breath atorvastatin 20 mg tablet 20 mg PO DAILY 07/16/23 08/02/23 07/16/23 History duloxetine 30 mg capsule,delayed 30 mg PO DAILY 07/16/23 08/02/23 07/16/23 History release insulin lispro 100 unit/mL See Rx Instructions .Route 07/16/23 08/02/23 07/15/23 History subcutaneous pen (Humalog KwikPen .COMPLEX PRN blood sugar (U-100) Insulin) metoprolol tartrate 25 mg tablet 25 mg PO BID 07/16/23 08/02/23 07/16/23 History pantoprazole 40 mg tablet,delayed 40 mg PO DAILY 07/16/23 08/02/23 07/16/23 History release trazodone 50 mg tablet 50 mg PO BEDTIME PRN Insomnia 07/16/23 08/02/23 Unknown History umeclidinium 62.5 mcg-vilanterol 1 ea inhalation BID 07/16/23 08/02/23 07/16/23 History 25 mcg/actuation powdr for inhalation (Anoro Ellipta) furosemide 40 mg tablet 40 mg PO DAILY PRN Swelling #2 tabs 07/19/23 08/02/23 07/16/23 Rx oxycodone-acetaminophen 5 mg-325 1 tab PO Q6H PRN Moderate Pain #2 07/19/23 08/02/23 Unknown Rx mg tablet tabs acetaminophen 325 mg tablet 325 mg PO Q6H PRN pain/fever 08/03/23 08/03/23 07/29/23 History (Tylenol) alprazolam 0.5 mg tablet 0.5 mg PO BID PRN Anxiety 08/03/23 08/03/23 08/02/23 History bisacodyl 10 mg rectal suppository 10 mg MD DAILY PRN Constipation 08/03/23 08/03/23 Unknown History docusate sodium 100 mg capsule 100 mg PO DAILY 08/03/23 08/03/23 08/02/23 History (Colace) ketoconazole 2 % shampoo 1 applic topical .2XWEEKLY PRN 08/03/23 08/03/23 Unknown History lather magnesium hydroxide 400 mg/5 mL 30 ml PO DAILY PRN Constipation 08/03/23 08/03/23 Unknown History oral suspension (Milk of Magnesia) nystatin 1 m PO BID PRN redness 08/03/23 08/03/23 Unknown History sodium phosphates 19 gram-7 118 ml MD DAILY PRN Constipation 08/03/23 08/03/23 Unknown History gram/118 mL enema (Fleet Enema) Allergies Allergy/AdvReac Type Severity Reaction Status Date / Time acetaminophen [From Vicodin] Allergy ADR-Confusi Verified 08/03/23 09:41 on cephalexin Allergy ALGY-Hives Verified 08/03/23 09:41 fluticasone Allergy Unknown Verified 08/03/23 09:41 [From Advair Diskus] hydrocodone [From Vicodin] Allergy ADR-Confusi Verified 08/03/23 09:41 on nitrofurantoin Allergy ALGY-Hives Verified 08/03/23 09:41 [From Macrobid] salmeterol Allergy Unknown Verified 08/03/23 09:41 [From Advair Diskus] Current Medications Generic Name Dose Route Start Last Admin Trade Name Freq PRN Reason Stop Dose Admin Fentanyl 50 mcg 08/03/23 09:22 08/03/23 09:56 Fentanyl 50 Mcg/Ml Inj 2ml IVP 25 mcg Q10M PRN Administration Preop Pain Sodium Chloride 1,000 mls @ 30 mls/hr 08/03/23 09:30 08/03/23 09:57 Sodium Chloride 0.9% IV 08/04/23 09:29 30 mls/hr .Q24H KARI Administration PFSH Anesthesia Medical History (Updated 07/20/23 @ 00:02 by DIANA Lundberg) Hypertension Obstructive sleep apnea intolerant of cpap Coronary artery disease CKD (chronic kidney disease) stage 3, GFR 30-59 ml/min Pneumonia Stroke Coffee ground emesis 2021 Nephrolithiasis Peripheral neuropathy Depression Diabetes mellitus type 2 in obese COPD (chronic obstructive pulmonary disease) Chronically uses 2 L per nasal cannula Surgical History History of ankle surgery History of cataract surgery History of bladder surgery History of carpal tunnel surgery History of shoulder surgery History of appendectomy Hx of CABG 2004 Family History Other Dementia Social History (Updated 07/16/23 @ 18:26 by Catarina Barger MD) Smoking and tobacco/nicotine status: former use of tobacco/nicotine Quit status (tobacco/nicotine): has quit using Year quit tobacco: 12/2022 Alcohol intake: never Substance/Drug Use: never Data Anesthesia Cardiac Studies: Echocardiogram 12/13/21
--- NOTE | 2023-08-03 10:34 | ANES.PROC ---
Anesthesia Procedures Procedure/Date: 08/03/23 Nerve Block ^: Nerve Block 1: Main Anesthesia: general anesthesia Time Out Performed: Yes Consent: requested by attending/covering physician, from patient, from other, risks and benefits reviewed and patient agrees to proceed Nerve block location: supraclavicular (R) Anesthesia monitors applied: pulse oximetry, EKG, BP cuff and oxygen Nerve block position: semi sitting Anesthetic Used: ropivicaine 0.5% (30 ml) and with decadron (4 mg) Ultrasound used to: recognize landmarks, visualize and ID brachial plexus and in supraclavicular region Nerve Stimulator Used?: No Interscalene/Femoral BLK: 4 stimuplex 21 g needle used for position and inplane approach, visualize local anesthetic spread and no vascular puncture identified Injection: neg aspiration of heme Patient Tolerated Procedure: well Complications: none
--- NOTE | 2023-08-03 10:36 | W.PM.OPSUD ---
Surgery/Procedure H&P Update DATE OF PROCEDURE: August 03, 2023 DATE H&P PERFORMED: 08/02/23 H&P UPDATE INFORMATION: I have reviewed H&P completed within last 30 days, I have examined patient prior to procedure and No changes to prior documentation PREOP DIAGNOSIS: Right midshaft humerus fracture PLANNED PROCEDURE: Operation Date: 08/03/23 10:50 Proposed Procedures p ORIF Proximal Humerus(Right) - León Martin DO
[2023-08-03] MEDS: ceFAZolin 2,000 MG in sodium chloride 0.9% (plus) 50 ML 100 MG IV (10:40)
--- NOTE | 2023-08-03 12:36 | PM.OP ---
Operative Report Date of procedure: August 03, 2023 Pre-op diagnosis: Right humerus fracture Post-op diagnosis: same Procedure done: Open reduction internal fixation of right humerus shaft fracture Surgeon: León Martin DO Estimated blood loss (mL): 50 Procedure: Open reduction internal fixation of right humerus shaft. Patient brought the op suite after undergoing anesthesia placed in the supine position. All areas appear well-padded patient's prepped draped also fashion. Skin incision made over the anterior humerus. The bicep tendon was identified retracted medially. The brachialis was split. Fracture was identified callus was debrided. Fracture was reduced. And then a 7 hole broad large frag plate was placed 3 screws were placed proximal to the fracture and 3 screws were placed distal to fracture. AP lateral fluoroscopy ensured the fracture was in good position. The BX was applied due to the patient's bone quality. At this point wounds were irrigated closed with Vicryl and marycruz. Patient had a small wound that was debrided on her lateral elbow from the her splint. This was loosely closed with nylon after being debrided.
--- NOTE | 2023-08-03 14:10 | ANE.PACU2 ---
Inpatient post-anesthesia follow up: Airway intact: Yes Vital signs: Temperature 97.3 F Pulse Rate 62 Respiratory Rate 17 Blood Pressure 110/56 Pulse Oximetry 92 Oxygen Delivery Me thod Nasal Cannula Oxygen Flow Rate 2 Fraction of Inspir ed Oxygen Hydration adequate: Yes Nausea and vomiting: No Pain level: 1 Mental status: Baseline
== END 2023-08-03 14:12 | disposition home or self-care (01) ==
PROVIDERS: PCP Physician Assistant; Visit Provider Orthopaedic Surgery
PROC: (CPT 23615; principal; 2023-08-03 10:40)
DX: S42.301A Unspecified fracture of shaft of humerus, right arm, initial encounter for closed fracture (principal); X58.XXXA Exposure to other specified factors, initial encounter; J44.9 Chronic obstructive pulmonary disease, unspecified; Z99.81 Dependence on supplemental oxygen; I25.10 Atherosclerotic heart disease of native coronary artery without angina pectoris; Z95.1 Presence of aortocoronary bypass graft; E11.42 Type 2 diabetes mellitus with diabetic polyneuropathy; I12.9 Hypertensive chronic kidney disease with stage 1 through stage 4 chronic kidney disease, or unspecified chronic kidney disease; N18.30 Chronic kidney disease, stage 3 unspecified; E78.5 Hyperlipidemia, unspecified; Z79.4 Long term (current) use of insulin; G47.33 Obstructive sleep apnea (adult) (pediatric); Z87.891 Personal history of nicotine dependence
CPT/HCPCS: 24515; 36416; 73060; 76000; 82962; C1713; C1734; J0690; J1100; J2371; J2405; J2704; J2795; J3010; J7030; P9045

== ENCOUNTER → 2023-08-07 14:36 | Outpatient (BNVA) | payer MEDICARE, MEDICAID, SELFPAY | PROVIDERS: PCP Physician Assistant; Visit Provider Orthopaedic Surgery | DX: S42.391A Other fracture of shaft of right humerus, initial encounter for closed fracture; X58.XXXA Exposure to other specified factors, initial encounter | CPT/HCPCS: 99024 ==

== ENCOUNTER 2023-08-07 15:18 | Outpatient (CLI) | payer MEDICARE, MEDICAID, SELFPAY | END 2023-08-07 15:19 | disposition home or self-care (01) | LOC: SPT 15:19 | PROVIDERS: PCP Physician Assistant; Visit Provider Orthopaedic Surgery | DX: Z46.89 Encounter for fitting and adjustment of other specified devices (principal); M21.331 Wrist drop, right wrist | CPT/HCPCS: 97760; L3908 ==

== ENCOUNTER 2023-09-05 09:39 | Inpatient (IN) | payer MEDICARE, MEDICAID, SELFPAY ==
[2023-09-05] VITALS (9 sets, daily range): BP systolic 93–129; BP diastolic 48–73; PULSE 53–71; RESP 14–19; TEMP 36.5–36.9; O2SAT 85–98; BMI 37.2; BMI 29.3
--- NOTE | 2023-09-05 10:06 | CT_ITS ---
WS: [id number] CTA RIGHT UPPER EXTREMITY TECHNIQUE: CTA RIGHT upper extremity with coronal and sagittal reformatted images. CLINICAL INFORMATION: infection COMPARISON: None. DLP: 1080.[address] scans at [facility] use at least one of these dose optimization techniques: automated e xposure control; mA and/or kV adjustment per patient size (includes targeted exams where dose is matc hed to clinical indication); or iterative reconstruction. FINDINGS: Chronic fracture deformity RIGHT proximal humerus. Recent postoperative changes plate and screw fixat ion mid humerus fracture. Osteopenia. Mild postoperative edema in the RIGHT upper extremity. Small fl uid collection extending to the skin anteriorly in the RIGHT upper arm presumably along the incision site. Associated skin thickening. One small locule of air in this area. Collection measures approxima tely 1.8 x 2.8 x 3.1 cm suspicious for developing abscess. Recommend correlation with overlying cellu litis in this area. Otherwise no evidence of drainable fluid collection or abscess. RIGHT subclavian and axillary arteries are patent. Brachial artery is patent. Radial and ulnar arter ies appear patent. Advanced arthritis RIGHT hip. Evidence of chronic RIGHT acetabular fracture with callus formation. RI GHT inferior gallbladder sludge. Emphysematous changes RIGHT lung. Aortic calcification. Normal RIGHT adrenal gland. No hydronephrosis in the RIGHT kidney. Vessels pubic rami fracture with callus format ion. Biconcave compression fractures T11 and L1 worse at L1. Mild retropulsion of the posterior superior c ortex at L1 with moderate central canal stenosis similar in appearance to 202. CT/[place] [id number] IMPRESSION: 1. Small suspected developing abscess or phlegmon in the anterior RIGHT upper arm in the subcutaneous soft tissues extending to the skin. Recommend correlati on for overlying cellulitis. 2. RIGHT upper extremity arteries appear patent. 3. If concern for venous SVT or DVT this would be better evaluated with ultras ound. 4. Anterior RIGHT acetabular fracture with callus formation has a chronic appe arance. Chronic appearing RIGHT inferior pubic ramus fracture with callus forma tion. 5. No other new findings.
--- NOTE | 2023-09-05 10:09 | ED_ITS ---
HPI - Extremity Problem 2 General: Chief complaint: Extremity Problem,Nontraumatic Stated complaint: Surgical site infection Time Seen by Provider: 09/05/23 09:48 Source: EMS Mode of arrival: EMS Limitations: altered mental status History of Present Illness: 77-year-old female who had had a humerus fracture surgically repaired 3 to 4 weeks ago patient sent here from retirement for possible infection he states she has had increased redness and some drainage and a possible abscess patient also has a rash to her lower legs. Patient here is quite confused unable to give me any history at all from her. Review of Systems 2 General: Reports: ROS unobtainable due to mental status PFSH ED 2 PFSH: Medical History Hypertension Obstructive sleep apnea intolerant of cpap Coronary artery disease CKD (chronic kidney disease) stage 3, GFR 30-59 ml/min Pneumonia Stroke Coffee ground emesis 2021 Nephrolithiasis Peripheral neuropathy Depression Diabetes mellitus type 2 in obese COPD (chronic obstructive pulmonary disease) Chronically uses 2 L per nasal cannula Surgical History History of ankle surgery History of cataract surgery History of bladder surgery History of carpal tunnel surgery History of shoulder surgery History of appendectomy Hx of CABG 2004 Family History Other Dementia Social History Smoking and tobacco/nicotine status: former use of tobacco/nicotine Quit status (tobacco/nicotine): has quit using Year quit tobacco: 12/2022 Alcohol intake: never Substance/Drug Use: never Physical Exam 2 Const: COMMON NORMALS: negative for patient oriented x3 HENMT: COMMON NORMALS: normocephalic and atraumatic HEAD & SCALP: n ormocephalic and atraumatic Eye: COMMON NORMALS: Equal, round and reactive pupils present and EOMs intact bilaterally PUPIL: Yes Equal, round and reactive pupils present Neck/C-Spine: COMMON NORMALS: full ROM and supple Chest: COMMONS NORMALS: normal inspection of the chest Resp: COMMON NORMALS: normal respiratory effort, No retractions, No use of accessory muscles and clear to auscultation bilaterally AUSCULTATION: clear to auscultation bilaterally Cardio: COMMON NORMALS: regular rate, regular rhythm and No murmurs present (Cardio) RATE: regular rate RHYTHM: regular rhythm GI: COMMON NORMALS: Normal to inspection, nondistended, normoactive bowel sounds present, Soft to palpation, non-tender and no masses PALPATION: Yes Soft to palpation Extremity: COMMON NORMALS: full ROM NARRATIVE EXTREMITY EXAM: Erythema noted at incision over right humerus. Also has a vasculitic type rash to her lower legs consistent with HSP Neuro: COMMON NORMALS: moves all extremities and no focal motor deficits; negative for patient oriented x3 Psych: COMMON NORMALS: mental status grossly normal, Normal thought process present and cooperative THOUGHT PROCESS: Normal thought process present Skin: COMMON NORMALS: no rashes or lesions noted and no wounds GENERAL SKIN EXAM: no rashes or lesions noted Course 2 Vital Signs: Vital signs: Vital Signs Temperature 98.1 F 09/05/23 09:46 Pulse Rate 53 L 09/05/23 09:46 Respiratory Rate 16 09/05/23 09:46 Blood Pressure 129/48 09/05/23 09:46 Pulse Oximetry 98 09/05/23 09:46 Oxygen Delivery Me thod Nasal Cannula 09/05/23 09:46 Oxygen Flow Rate 2 09/05/23 09:46 MDM - Extremity (Nontraumatic) Medical Decision Making Patient presents for cellulitis to her right arm over her incision and also a developing phlegmon she also has a rash to her lower extremities consistent with HSP I did speak to orthopedics along with hospitalist will admit at this time. Medical Records I reviewed the patient's medical records. Lab Data I reviewed the patient's lab results. 09/05/23 10:02 09/05/23 10:02 Radiology Impressions Upper Extremity CTA 09/05/23 10:06 IMPRESSION: 1. Small suspected developing abscess or phlegmon in the anterior RIGHT upper arm in the subcutaneous soft tissues extending to the skin. Recommend correlation for overlying cellulitis. 2. RIGHT upper extremity arteries appear patent. 3. If concern for venous SVT or DVT this would be better evaluated with ultrasound. 4. Anterior RIGHT acetabular fracture with callus formation has a chronic appearance. Chronic appearing RIGHT inferior pubic ramus fracture with callus formation. 5. No other new findings. Laboratory Results WBC 6.84 10^3/uL (3.29-11.43) 09/05/23 10:02 RBC 3.28 10^6/uL (3.85-5.65) L 09/05/23 10:02 Hgb 8.70 g/dL (11.27-16.99) L 09/05/23 10:02 Hct 30.0 % (36-47) L 09/05/23 10:02 MCV 91.5 fl (85-98) 09/05/23 10:02 MCH 26.5 pg (27-33) L 09/05/23 10:02 MCHC 29.0 g/dL (30-55) L 09/05/23 10:02 RDW 17.0 % (12.1-15.1) H 09/05/23 10:02 Plt Count 234 10^3/cmm (157-399) 09/05/23 10:02 MPV 8.0 fL (7.4-10.4) 09/05/23 10:02 Neut % (Auto) 66.6 % 09/05/23 10:02 Lymph % (Auto) 19.6 % 09/05/23 10:02 [place] % (Auto) 7.3 % 09/05/23 10:02 Eos % (Auto) 5.1 % 09/05/23 10:02 Baso % (Auto) 0.7 % 09/05/23 10:02 Neut # (Auto) 4.55 10^3/uL (1.8-7.7) 09/05/23 10:02 Lymph # (Auto) 1.3 10^3/uL (0.8-4.8) 09/05/23 10:02 [place] # (Auto) 0.5 10^3/uL (0.2-0.9) 09/05/23 10:02 Eos # (Auto) 0.4 10^3/uL (0.0-0.8) 09/05/23 10:02 Baso # (Auto) 0.1 10^3/uL (0.0-0.1) 09/05/23 10:02 Nucleated RBC % (auto) 0 % 09/05/23 10:02 Nucleated RBCs # 0.0 /100WBC 09/05/23 10:02 ESR 68 mm/hr (0-15) H 09/05/23 10:02 Sodium 139 mmol/L (136-145) 09/05/23 10:02 Potassium 5.2 mmol/L (3.5-5.1) H 09/05/23 10:02 Chloride 105 mmol/L (98-107) 09/05/23 10:02 Carbon Dioxide 23 mmol/L (22-29) 09/05/23 10:02 Anion Gap 16.2 (5-19) 09/05/23 10:02 BUN 30 mg/dL (8-23) H 09/05/23 10:02 Creatinine 1.3 mg/dL (0.5-0.9) H 09/05/23 10:02 GFR Calculation Not Reportable 09/05/23 10:02 Glucose 174 mg/dL (65-115) H 09/05/23 10:02 Calculated Osmolality 298 mOsm/kg (285-295) H 09/05/23 10:02 Calcium 8.8 mg/dL (8.5-10.5) 09/05/23 10:02 Total Bilirubin 0.4 mg/dL (0.15-1.2) 09/05/23 10:02 AST 7 U/L (0-32) 09/05/23 10:02 ALT 9 U/L (0-33) 09/05/23 10:02 Alkaline Phosphatase 165 U/L (35-105) H 09/05/23 10:02 C-Reactive Protein 59.0 mg/L (0.0-4.9) H 09/05/23 10:02 Total Protein 7.3 g/dL (6.6-8.7) 09/05/23 10:02 Albumin 3.1 g/dL (3.5-5.2) L 09/05/23 10:02 Globulin 4.2 g/dL (1.3-4.6) 09/05/23 10:02 All radiology interpretation(s) finalized by discharge Discharge Plan Discharge Patient Disposition: Admitted As Inpatient Clinical Impression: Cellulitis, HSP (Henoch Schonlein purpura) Condition: Stable Prescriptions: No Action (DME) Wrist brace See Rx Instructions .Route .MEDSUPPLY Qty: 1 0RF Rx Instructions: As directed tramadol 50 mg tablet 50 mg PO Q8H PRN (Reason: pain) Qty: 20 0RF duloxetine 60 mg Capsule, Delayed Rel Sprinkle 60 mg PO DAILY Rx Instructions: Take with 30mg tablet to equal 90mg methocarbamol 500 mg Tablet 500 mg PO QID PRN (Reason: Muscle Spasms) Qty: 14 0RF aspirin [Farzana Low Dose Aspirin] 81 mg tablet,delayed release (DR/EC) 81 mg PO DAILY Qty: 30 0RF atorvastatin 20 mg tablet 20 mg PO BEDTIME albuterol sulfate 2.5 mg /3 mL (0.083 %) solution for nebulization 2.5 mg inhalation Q6H PRN (Reason: Shortness Of Breath) insulin lispro [Humalog KwikPen Insulin] 100 unit/mL insulin pen See Rx Instructions .ROUTE .COMPLEX PRN (Reason: blood sugar) Rx Instructions: Sliding Scale insulin as directed subcutaneously 3 times per day with meals metoprolol tartrate 25 mg tablet 25 mg PO BID duloxetine 30 mg capsule,delayed release(DR/EC) 30 mg PO DAILY Rx Instructions: Take with 60mg tablet to equal 90mg Anoro Ellipta 62.5-25 mcg/actuation blister with device 1 ea INHALATION DAILY pantoprazole 40 mg tablet,delayed release (DR/EC) 40 mg PO DAILY furosemide 40 mg tablet 40 mg PO DAILY PRN (Reason: Swelling) Qty: 2 0RF Probiotic 3 billion cell Capsule 3,000 mmu cells PO DAILY PRN (Reason: WHILE ON ANTIBIOTICS) Rx Instructions: administer with a meal linezolid 600 mg tablet 600 mg PO BID hydrocortisone 1 % Cream 1 applic TOPICAL QID PRN (Reason: RASH/ITCH) Benadryl 25 mg Capsule 25 mg PO DAILY MDD MAY REPEAT IN 12 HOURS PRN (Reason: Allergic Reaction) nystatin 100,000 unit/gram powder 1 applic TOPICAL BID PRN (Reason: REDNESS) Miralax 17 gram/dose Powder See Rx Instructions .ROUTE .COMPLEX Rx Instructions: TAKE 17 g BY MOUTH MIXED IN 6 TO 8 OUNCES LIQUID DAILY. Pro-Stat 101 15-101 gram-kcal/30 mL Liquid 1 ea PO DAILY insulin glargine [Lantus U-100 Insulin] 100 unit/mL solution 55 unit SUBCUT QPM Pulmicort Flexhaler 180 mcg/actuation aerosol powdr breath activated 1 inh inhalation BID Qty: 1 0RF acetaminophen [Tylenol] 325 mg Tablet 650 mg PO Q6H PRN (Reason: pain/fever) alprazolam 0.5 mg tablet 0.5 mg PO BID PRN (Reason: Anxiety) magnesium hydroxide [Milk of Magnesia] 400 mg/5 mL Suspension 30 ml PO DAILY PRN (Reason: Constipation) bisacodyl 10 mg Suppository 10 mg NM DAILY PRN (Reason: Constipation) Fleet Enema 19-7 gram/118 mL Enema 118 ml NM DAILY PRN (Reason: Constipation) docusate sodium [Colace] 100 mg Capsule 100 mg PO DAILY ketoconazole 2 % Shampoo 1 applic TOPICAL .2XWEEKLY PRN (Reason: lather) Referrals: Alem Auguste PA [Primary Care Provider] - Coding Level of Care Code ED Saturation Diver for Jr Elmore
[2023-09-05 10:18] LABS: Basophils # 0.1 10^3/uL (0.0-0.1); Basophils % 0.7 %; Eosinophils # 0.4 10^3/uL (0.0-0.8); Eosinophils % 5.1 %; Lymphocytes # 1.3 10^3/uL (0.8-4.8); Lymphocytes % 19.6 %; Mean Corpuscular Hemoglobin 26.5 pg (27-33); Mean Corpuscular Volume 91.5 fl (85-98); Monocytes # 0.5 10^3/uL (0.2-0.9); Monocytes % 7.3 %; Neutrophils # 4.55 10^3/uL (1.8-7.7); Neutrophils % 66.6 %; Nucleated Red Blood Cells % 0 %; Platelet Count 234 10^3/cmm (157-399); Red Blood Count 3.28 10^6/uL (3.85-5.65); White Blood Count 6.84 10^3/uL (3.29-11.43)
[2023-09-05 10:35] LABS: Alanine Aminotransferase 9 U/L (0-33); Albumin Level 3.1 g/dL (3.5-5.2); Alkaline Phosphatase 165 U/L (35-105); Anion Gap 16.2 (5-19); Aspartate Amino Transferase 7 U/L (0-32); Blood Urea Nitrogen 30 mg/dL (8-23); Calcium 8.8 mg/dL (8.5-10.5); Carbon Dioxide 23 mmol/L (22-29); Chloride 105 mmol/L (98-107); Creatinine Clr Calc Pharmacy 41.0489; Globulin 4.2 g/dL (1.3-4.6); Glucose 174 mg/dL (65-115); Osmolality Calculated 298 mOsm/kg (285-295); Potassium 5.2 mmol/L (3.5-5.1); Sodium 139 mmol/L (136-145); Total Bilirubin 0.4 mg/dL (0.15-1.2); Total Protein 7.3 g/dL (6.6-8.7)
[2023-09-05 11:36] LABS: Erythrocyte Sedimentation Rate 68 mm/hr (0-15)
[2023-09-05] MEDS: iohexol 350 mg/mL 500 mL Btl (per mL) IV (11:55)
[2023-09-05] MEDS: vancomycin 1,000 MG in sodium chloride 0.9% 250 ML 250 MG IV (12:49)
[2023-09-05 13:16] LABS: INR 1.11 (0.8-1.2)
[2023-09-05 13:20] LABS: Lactic Sepsis W/Reflex 2.1 mmol/L (0.5-2.2)
[2023-09-05 13:29] LABS: NT Pro B Type Natriuretic Pept 1141 pg/mL (0-450); Procalcitonin 0.08 ng/mL (0-0.5)
--- NOTE | 2023-09-05 13:59 | USCV_ITS ---
Dru Deyanira Age: 77 Gender: F : 1945 Exam Date: 09/05/2023 14:17 Ordering Phys: Farshad Chawla MD Technologist: CT Exam Location: [facility] [place]_ Indication: swelling PROCEDURES: Venous duplex imaging was performed in only the right upper extremity. FINDINGS: no dvt found limited exam pt unable to move or rotate arm CONCLUSIONS No evidence of thrombus of the right upper extremity veins. Alistair Morataya MD (Electronically Signed) Final Date: 05 September 2023 15:15 S
--- NOTE | 2023-09-05 14:01 | P.HP_ITS ---
Providers/Chief Complaint 2 Primary Care Provider: Alem Auguste Chief Complaint: Surgical site infection History of Present Illness Deyanira Gonsales is a 77 year old female with a past medical history of CAD, history of CABG, CKD, hypertension, sleep apnea, history of stroke, COPD who presents [facility] due to right upper extremity pain, swelling, drainage from surgical site, currently patient is alert to person, to place, not to time she follows all commands, however at times is confused she complains that she is having pain and swelling and tenderness of his right upper extremity, no fevers, chills, no cough, no abdominal pain Review of Systems 2 Card: Denies: chest pain Resp: Denies: dyspnea Skin/Breast: Reports: rash Medications/Allergies Home Medications Medication Instructions Recorded Confirmed Last Taken Type duloxetine 60 mg capsule,delayed 60 mg PO DAILY 06/20/19 09/05/23 09/05/23 History release sprinkle aspirin 81 mg tablet,delayed 81 mg PO DAILY #30 tabs 06/25/19 09/05/23 09/05/23 Rx release (Farzana Low Dose Aspirin) methocarbamol 500 mg tablet 500 mg PO QID PRN Muscle Spasms 06/25/19 09/05/23 09/02/23 Rx #14 tabs insulin glargine 100 unit/mL 55 unit SUBCUT QPM 12/12/21 09/05/23 09/04/23 History subcutaneous solution (Lantus U-100 Insulin) budesonide 180 mcg/actuation 1 inh inhalation BID #1 ea 12/20/21 09/05/23 09/05/23 Rx breath activated powder inhaler (Pulmicort Flexhaler) albuterol sulfate 2.5 mg/3 mL 2.5 mg inhalation Q6H PRN 07/16/23 09/05/23 07/24/23 History (0.083 %) solution for nebulization Shortness Of Breath atorvastatin 20 mg tablet 20 mg PO BEDTIME 07/16/23 09/05/23 09/04/23 History duloxetine 30 mg capsule,delayed 30 mg PO DAILY 07/16/23 09/05/23 09/05/23 History release insulin lispro 100 unit/mL See Rx Instructions .Route 07/16/23 09/05/23 09/05/23 History subcutaneous pen (Humalog KwikPen .COMPLEX PRN blood sugar (U-100) Insulin) metoprolol tartrate 25 mg tablet 25 mg PO BID 07/16/23 09/05/23 09/05/23 History pantoprazole 40 mg tablet,delayed 40 mg PO DAILY 07/16/23 09/05/23 09/05/23 History release umeclidinium 62.5 mcg-vilanterol 1 ea inhalation DAILY 07/16/23 09/05/23 09/05/23 History 25 mcg/actuation powdr for inhalation (Anoro Ellipta) furosemide 40 mg tablet 40 mg PO DAILY PRN Swelling #2 tabs 07/19/23 09/05/23 07/16/23 Rx acetaminophen 325 mg tablet 650 mg PO Q6H PRN pain/fever 08/03/23 09/05/23 08/31/23 History (Tylenol) alprazolam 0.5 mg tablet 0.5 mg PO BID PRN Anxiety 08/03/23 09/05/23 09/02/23 History bisacodyl 10 mg rectal suppository 10 mg MN DAILY PRN Constipation 08/03/23 09/05/23 Unknown History docusate sodium 100 mg capsule 100 mg PO DAILY 08/03/23 09/05/23 09/05/23 History (Colace) ketoconazole 2 % shampoo 1 applic topical .2XWEEKLY PRN 08/03/23 09/05/23 Unknown History lather magnesium hydroxide 400 mg/5 mL 30 ml PO DAILY PRN Constipation 08/03/23 09/05/23 Unknown History oral suspension (Milk of Magnesia) sodium phosphates 19 gram-7 118 ml MN DAILY PRN Constipation 08/03/23 09/05/23 Unknown History gram/118 mL enema (Fleet Enema) Wrist brace #1 ea 08/07/23 09/05/23 Unknown Rx tramadol 50 mg tablet 50 mg PO Q8H PRN pain #20 tabs 08/21/23 09/05/23 09/02/23 Rx amino acids-protein hydrolysate 15 1 ea PO DAILY 09/05/23 09/05/23 09/05/23 History gram-101 kcal/30 mL oral liquid diphenhydramine HCl 25 mg capsule 25 mg PO DAILY PRN Allergic 09/05/23 09/05/23 09/01/23 History (Benadryl) Reaction hydrocortisone 1 % topical cream 1 applic topical QID PRN RASH/ITCH 09/05/23 09/05/23 Unknown History lactobacillus combination no.4 3 3,000 mmu cells PO DAILY PRN WHILE 09/05/23 09/05/23 Unknown History billion cell capsule (Probiotic) ON ANTIBIOTICS linezolid 600 mg tablet 600 mg PO BID 09/05/23 09/05/23 09/05/23 History nystatin 100,000 unit/gram topical 1 applic topical BID PRN REDNESS 09/05/23 09/05/23 Unknown History powder polyethylene glycol 3350 17 See Rx Instructions .Route .COMPLEX 09/05/23 09/05/23 09/05/23 History gram/dose oral powder (Miralax) Allergies Allergy/AdvReac Type Severity Reaction Status Date / Time acetaminophen [From Vicodin] Allergy ADR-Confusi Verified 08/21/23 14:10 on cephalexin Allergy ALGY-Hives Verified 08/21/23 14:10 fluticasone Allergy Unknown Verified 08/21/23 14:10 [From Advair Diskus] hydrocodone [From Vicodin] Allergy ADR-Confusi Verified 08/21/23 14:10 on nitrofurantoin Allergy ALGY-Hives Verified 08/21/23 14:10 [From Macrobid] salmeterol Allergy Unknown Verified 08/21/23 14:10 [From Advair Diskus] PFSH Acute 2 PFSH: Medical History Hypertension Obstructive sleep apnea intolerant of cpap Coronary artery disease CKD (chronic kidney disease) stage 3, GFR 30-59 ml/min Pneumonia Stroke Coffee ground emesis 2021 Nephrolithiasis Peripheral neuropathy Depression Diabetes mellitus type 2 in obese COPD (chronic obstructive pulmonary disease) Chronically uses 2 L per nasal cannula Surgical History History of ankle surgery History of cataract surgery History of bladder surgery History of carpal tunnel surgery History of shoulder surgery History of appendectomy Hx of CABG 2004 Family History Other Dementia Social History Smoking and tobacco/nicotine status: former use of tobacco/nicotine Quit status (tobacco/nicotine): has quit using Year quit tobacco: 12/2022 Alcohol intake: never Substance/Drug Use: never Vitals/I&O/Wt Last Vital Signs Temp 98.1 F 09/05/23 09:46 Pulse 53 L 09/05/23 09:46 Resp 16 09/05/23 09:46 BP 129/48 09/05/23 09:46 Pulse Ox 98 09/05/23 09:46 O2 Del Method Nasal Cannula 09/05/23 09:46 O2 Flow Rate 2 09/05/23 09:46 Weight last 48 hrs Weight 95.254 kg Physical Exam 2 Const: COMMON NORMALS: no acute distress EXAM LIMITATIONS: altered mental status ORIENTATION/CONSCIOUSNESS: Yes awake, Yes oriented to person and Yes oriented to place; not oriented to time Resp: COMMON NORMALS: normal respiratory effort, No retractions, No use of accessory muscles and clear to auscultation bilaterally AUSCULTATION: clear to auscultation bilaterally Cardio: COMMON NORMALS: no JVD, regular rate, regular rhythm, S1 normal heart sound present and S2 normal heart sound present RATE: regular rate RHYTHM: regular rhythm HEART SOUNDS: S1 normal heart sound present and S2 normal heart sound present GI: COMMON NORMALS: Normal to inspection, nondistended, normoactive bowel sounds present, Soft to palpation and non-tender Extremity: COMMON NORMALS: no pedal edema NARRATIVE EXTREMITY EXAM: Does follow neurologic testing, alert to person, to place not to time, can smile for me, moving bilateral upper and lower extremities, cranial nerves II to XII grossly intact Skin: NARRATIVE SKIN EXAM: Right upper extremity, surgical site, linear surgical scar, with drainage coming from site closest to the humeral head, with surrounding erythema, swelling, tenderness, measuring 2 x 5cm Bilateral lower extremities, multiple nonblanching maculopapular rashes, Data 09/05/23 10:02 09/05/23 10:02 Micro: Microbiology 09/05/23 10:08 Blood Culture - Preliminary Blood SPECIMEN COLLECTED 09/05/23 10:02 Blood Culture - Preliminary Blood SPECIMEN COLLECTED A&P Assessment and plan (1) Cellulitis: Qualifiers: Laterality: right Site of cellulitis: extremity Site of cellulitis of extremity: upper extremity Qualified Code(s): L03.113 - Cellulitis of right upper limb (2) Closed fracture of humerus, shaft: Qualifiers: Encounter type: initial encounter Fracture morphology: other fracture Laterality: right Qualified Code(s): S42.391A - Other fracture of shaft of right humerus, initial encounter for closed fracture (3) Surgical site infection: (4) Rash: (5) Encephalopathy acute: Plan Acute encephalopathy ?Neurochecks -Aspiration precautions ?NIH stroke scale Surgical site infection, cellulitis,status post open reduction internal fixation right humeral shaft fracture ? Plan ? Will obtain cultures from drainage site ? Follow blood cultures ? Venous ultrasound ? IV vancomycin ? IV Zosyn ? Monitor clinical status ? Orthopedic service has been consulted Rash bilateral lower extremities, nonpruritic ? Maculopapular, nonblanching ? KATLYN panel ? IgA ? Will monitor Type 2 diabetes mellitus, moderate dose sliding scale Acute on chronic anemia, ? Hemoglobin 8.7 -Monitor Acute kidney injury ? Creatinine 1.3 ? Monitor Patient requires hospitalization ? Full code ? Lovenox for DVT prophylaxis ? Protonix for GI prophylaxis Attestations 2 Medical Necessity Statement*: Patient requires hospitalization, inpatient, greater than 2 midnights, for surgical site infection, cellulitis, status post open reduction internal fixation right humeral shaft fracture, encephalopathy, Diagnoses Cellulitis L03.113 Laterality: right Site of cellulitis: extremity Site of cellulitis of extremity: upper extremity Other closed fracture of shaft of right humerus, initial encounter S42.391A Encounter type: initial encounter Fracture morphology: other fracture Laterality: right Surgical site infection T81.49XA Rash R21 Encephalopathy acute G93.40
[2023-09-05 14:54] LABS: Reflex Lactate Order REFLEX LACTIC ORDERD
[2023-09-05 15:44] LABS: Lactic Acid level (Lactate) 1.2 mmol/L (0.5-2.2)
[2023-09-05] MEDS: morphine 4 mg/mL SDV 1 mL 2 MG IVP (17:08)
[2023-09-05] MEDS: enoxaparin 40 mg/0.4 mL Syringe SUBCUT (17:11)
[2023-09-05] MEDS: sodium chloride 0.9% 1,000 ML 75 ML IV (17:11)
[2023-09-05 17:19] LABS: Estmated Average Glucose 163; Hemoglobin A1C 7.3 % (4.0-6.0)
[2023-09-05 17:27] LABS: Glucose Point of Care 132 mg/dL (70-110)
[2023-09-05 17:45] LABS: Charge for UA Resulting for Rev
[2023-09-05 17:55] LABS: Thyroid Stimulating Hormone 1.66 uIU/mL (0.27-4.20)
[2023-09-05] MEDS: piperacillin-tazobactam 3.375 GM in sodium chloride 0.9% (plus) 50 ML IV (17:56)
[2023-09-05 18:01] LABS: Bilirubin Urine Negative (Negative); Blood Urine Negative (Negative); Glucose Urine UA Negative (Normal); Ketones Urine Negative (Negative); Leukocyte Esterase Urine Negative (Negative); Nitrate Urine Negative (Negative); Protein Urine Negative (Negative); Urine Appearance Clear (CLEAR); Urine Color Yellow (Yellow)
--- NOTE | 2023-09-05 18:23 | P.CONIM_ITS ---
Providers/Reason For Consult 2 Consulting Physician/Specialty*: Judit Black MD Reason for Consult*: Surgical site infection left humerus Requesting Physician: Dr. Radha Whitaker Attending Physician: Farshad Chawla MD Primary Care Provider: Alem Auguste History of Present Illness History of Present Illness Deyanira Gonsales is a 77 year old female patient was admitted through the department. The patient underwent open reduction internal fixation of a right midshaft humerus fracture by Dr. Martin on August 03, 2023. When she was seen in the office subsequently, initially, she was doing well, but subsequently she developed some redness about the wound, and she was placed on p.o. antibiotics. The patient presented to the emergency department with increased redness and swelling in the upper extremity. After CT scan, she was admitted for IV antibiotic treatment. Dr. Martin is currently out of town, and I will address this patient until he returns. Review of Systems 2 General: Reports: ROS unobtainable due to mental status Eyes: Denies: photophobia ENMT: Denies: enlarged tonsils Card: Denies: chest pain Resp: Denies: dyspnea Skin/Breast: Reports: rash Medications/Allergies Home Medications Medication Instructions Recorded Confirmed Last Taken Type duloxetine 60 mg capsule,delayed 60 mg PO DAILY 06/20/19 09/05/23 09/05/23 History release sprinkle aspirin 81 mg tablet,delayed 81 mg PO DAILY #30 tabs 06/25/19 09/05/23 09/05/23 Rx release (Farzana Low Dose Aspirin) methocarbamol 500 mg tablet 500 mg PO QID PRN Muscle Spasms 06/25/19 09/05/23 09/02/23 Rx #14 tabs insulin glargine 100 unit/mL 55 unit SUBCUT QPM 12/12/21 09/05/23 09/04/23 History subcutaneous solution (Lantus U-100 Insulin) budesonide 180 mcg/actuation 1 inh inhalation BID #1 ea 12/20/21 09/05/23 09/05/23 Rx breath activated powder inhaler (Pulmicort Flexhaler) albuterol sulfate 2.5 mg/3 mL 2.5 mg inhalation Q6H PRN 07/16/23 09/05/23 07/24/23 History (0.083 %) solution for nebulization Shortness Of Breath atorvastatin 20 mg tablet 20 mg PO BEDTIME 07/16/23 09/05/23 09/04/23 History duloxetine 30 mg capsule,delayed 30 mg PO DAILY 07/16/23 09/05/23 09/05/23 History release insulin lispro 100 unit/mL See Rx Instructions .Route 07/16/23 09/05/23 09/05/23 History subcutaneous pen (Humalog KwikPen .COMPLEX PRN blood sugar (U-100) Insulin) metoprolol tartrate 25 mg tablet 25 mg PO BID 07/16/23 09/05/23 09/05/23 History pantoprazole 40 mg tablet,delayed 40 mg PO DAILY 07/16/23 09/05/23 09/05/23 History release umeclidinium 62.5 mcg-vilanterol 1 ea inhalation DAILY 07/16/23 09/05/23 09/05/23 History 25 mcg/actuation powdr for inhalation (Anoro Ellipta) furosemide 40 mg tablet 40 mg PO DAILY PRN Swelling #2 tabs 07/19/23 09/05/23 07/16/23 Rx acetaminophen 325 mg tablet 650 mg PO Q6H PRN pain/fever 08/03/23 09/05/23 08/31/23 History (Tylenol) alprazolam 0.5 mg tablet 0.5 mg PO BID PRN Anxiety 08/03/23 09/05/23 09/02/23 History bisacodyl 10 mg rectal suppository 10 mg OR DAILY PRN Constipation 08/03/23 09/05/23 Unknown History docusate sodium 100 mg capsule 100 mg PO DAILY 08/03/23 09/05/23 09/05/23 History (Colace) ketoconazole 2 % shampoo 1 applic topical .2XWEEKLY PRN 08/03/23 09/05/23 Unknown History lather magnesium hydroxide 400 mg/5 mL 30 ml PO DAILY PRN Constipation 08/03/23 09/05/23 Unknown History oral suspension (Milk of Magnesia) sodium phosphates 19 gram-7 118 ml OR DAILY PRN Constipation 08/03/23 09/05/23 Unknown History gram/118 mL enema (Fleet Enema) Wrist brace #1 ea 08/07/23 09/05/23 Unknown Rx tramadol 50 mg tablet 50 mg PO Q8H PRN pain #20 tabs 08/21/23 09/05/23 09/02/23 Rx amino acids-protein hydrolysate 15 1 ea PO DAILY 09/05/23 09/05/23 09/05/23 History gram-101 kcal/30 mL oral liquid diphenhydramine HCl 25 mg capsule 25 mg PO DAILY PRN Allergic 09/05/23 09/05/23 09/01/23 History (Benadryl) Reaction hydrocortisone 1 % topical cream 1 applic topical QID PRN RASH/ITCH 09/05/23 09/05/23 Unknown History lactobacillus combination no.4 3 3,000 mmu cells PO DAILY PRN WHILE 09/05/23 09/05/23 Unknown History billion cell capsule (Probiotic) ON ANTIBIOTICS linezolid 600 mg tablet 600 mg PO BID 09/05/23 09/05/23 09/05/23 History nystatin 100,000 unit/gram topical 1 applic topical BID PRN REDNESS 09/05/23 09/05/23 Unknown History powder polyethylene glycol 3350 17 See Rx Instructions .Route .COMPLEX 09/05/23 09/05/23 09/05/23 History gram/dose oral powder (Miralax) Allergies Allergy/AdvReac Type Severity Reaction Status Date / Time acetaminophen [From Vicodin] Allergy ADR-Confusi Verified 08/21/23 14:10 on cephalexin Allergy ALGY-Hives Verified 08/21/23 14:10 fluticasone Allergy Unknown Verified 08/21/23 14:10 [From Advair Diskus] hydrocodone [From Vicodin] Allergy ADR-Confusi Verified 08/21/23 14:10 on nitrofurantoin Allergy ALGY-Hives Verified 08/21/23 14:10 [From Macrobid] salmeterol Allergy Unknown Verified 08/21/23 14:10 [From Advair Diskus] Current Medications Generic Name Dose Route Start Last Admin Trade Name Freq PRN Reason Stop Dose Admin Enoxaparin Sodium 40 mg 09/05/23 16:48 09/05/23 17:11 Enoxaparin 40 Mg/0.4 Ml Syringe SUBCUT 40 mg Q24H KARI Administration Piperacillin Sod/Tazobactam 50 mls @ 12.5 mls/hr 09/05/23 17:00 09/05/23 17:56 Sod 3.375 gm/ Sodium Chloride IV 12.5 mls/hr Q8H KARI Administration Protocol Sodium Chloride 1,000 mls @ 75 mls/hr 09/05/23 16:48 09/05/23 17:11 Sodium Chloride 0.9% IV 75 mls/hr .[id number] KARI Administration Insulin Human Lispro 0 unit 09/05/23 18:00 09/05/23 17:45 Insulin Lispro 100 Unit/1 Ml SUBCUT Not Given TIDWM KARI Protocol Morphine Sulfate 2 mg 09/05/23 16:48 09/05/23 17:08 Morphine 4 Mg/Ml Sdv 1 Ml IVP 2 mg Q4H PRN Administration SEVERE PAIN PFSH Acute 2 PFSH: Medical History Hypertension Obstructive sleep apnea intolerant of cpap Coronary artery disease CKD (chronic kidney disease) stage 3, GFR 30-59 ml/min Pneumonia Stroke Coffee ground emesis 2021 Nephrolithiasis Peripheral neuropathy Depression Diabetes mellitus type 2 in obese COPD (chronic obstructive pulmonary disease) Chronically uses 2 L per nasal cannula Surgical History History of ankle surgery History of cataract surgery History of bladder surgery History of carpal tunnel surgery History of shoulder surgery History of appendectomy Hx of CABG 2004 Family History Other Dementia Social History Smoking and tobacco/nicotine status: former use of tobacco/nicotine Quit status (tobacco/nicotine): has quit using Year quit tobacco: 12/2022 Alcohol intake: never Substance/Drug Use: never Vitals/I&O/Wt Last Vital Signs Temp 98.1 F 09/05/23 09:46 Pulse 66 09/05/23 18:06 Resp 19 H 09/05/23 17:08 BP 93/49 09/05/23 13:52 Pulse Ox 85 L 09/05/23 17:51 O2 Del Method Room Air 09/05/23 17:51 O2 Flow Rate 2 09/05/23 09:46 09/05/23 09/05/23 09/05/23 06:59 14:59 22:59 Intake Total 370 / 370 Output Total 275 / 275 Balance 95 / 95 Weight last 48 hrs Weight 165 lb 9.6 oz Weight 210 lb Physical Exam 2 Const: COMMON NORMALS: no acute distress, average body habitus and alert G ENERAL APPEARANCE: cooperative and comfortable NUTRITIONAL APPEARANCE: o verweight ORIENTATION/CONSCIOUSNESS: Yes awake HENMT: COMMON NORMALS: normocephalic and atraumatic HEAD & SCALP: n ormocephalic and atraumatic Eye: GENERAL EYE: appearance normal, both eyes and all related structures Chest: COMMONS NORMALS: normal inspection of the chest Resp: COMMON NORMALS: normal respiratory effort EFFORT & INSPECTION: Yes able to speak in complete sentences and Yes symmetric chest movement Extremity: RIGHT UPPER EXTREMITY: Yes upper arm (Incision is red and swollen. 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 Small suspected developing abscess or phlegmon in the anterior RIGHT upper arm in the subcutaneous soft tissues extending to the skin. Recommend correlation for overlying cellulitis. 2. RIGHT upper extremity arteries appear patent. 3. If concern for venous SVT or DVT this would be better evaluated with ultrasound. 4. Anterior RIGHT acetabular fracture with callus formation has a chronic appearance. Chronic appearing RIGHT inferior pubic ramus fracture with callus formation. 5. No other new findings. Xray Ortho: My impression: X-rays were reviewed from the patient's visit at the time of her admission. She has a midshaft humerus fracture which has been addressed with a 6-hole plate. The fracture is in near anatomic position with this reduction. There is no evidence of fracture failure or hardware failure. A&P Assessment and plan (1) Surgical site infection: This 77-year-old woman was admitted from her care facility with redness and swelling about the upper arm. There is no jong drainage at the time of admission, but there was some oozing from the previous incision. Her surgical date was August 02 of this year. She was seen in the office by Dr. Martin in early August and again on August 20. At that time, she was placed on Bactrim as she was having some redness about the incision site. She was to be seen back, however, she came to the emergency department after having increased drainage. She was sent there by her primary care provider. She is being admitted for IV antibiotics. CT scan demonstrated no obvious abscess, so surgical intervention is not planned at this point. Ongoing IV antibiotics will be administered, and subsequent CT may be of value to further assess whether there has been development of a true abscess. (2) Closed fracture of humerus, shaft: Qualifiers: Encounter type: initial encounter Fracture morphology: other fracture Laterality: right Qualified Code(s): S42.391A - Other fracture of shaft of right humerus, initial encounter for closed fracture (3) Cellulitis: Qualifiers: Laterality: right Site of cellulitis: extremity Site of cellulitis of extremity: upper extremity Qualified Code(s): L03.113 - Cellulitis of right upper limb Coding Level of Care Code Acute Code for [facility] Fwd Diagnoses Surgical site infection T81.49XA Other closed fracture of shaft of right humerus, initial encounter S42.391A Encounter type: initial encounter Fracture morphology: other fracture Laterality: right Cellulitis L03.113 Laterality: right Site of cellulitis: extremity Site of cellulitis of extremity: upper extremity
[2023-09-05 20:40] LABS: Glucose Point of Care 259 mg/dL (70-110)
[2023-09-05] MEDS: atorvastatin 40 mg Tablet 20 MG PO (21:19)
[2023-09-05 22:48] LABS: Immunoglobulin IGA 471 mg/dL (70-400)
[2023-09-06] VITALS (12 sets, daily range): BP systolic 102–156; BP diastolic 59–69; PULSE 57–101; RESP 14–22; TEMP 36.4–36.9; O2SAT 92–97
[2023-09-06] MEDS: vancomycin 1,250 MG/250 ML PIGGYBACK 250 MG IV (00:01)
[2023-09-06] MEDS: piperacillin-tazobactam 3.375 GM in sodium chloride 0.9% (plus) 50 ML IV ×3 (01:08→17:03)
[2023-09-06] MEDS: morphine 4 mg/mL SDV 1 mL 2 MG IVP ×2 (01:21→14:02)
[2023-09-06] MEDS: sodium chloride 0.9% 1,000 ML 75 ML IV ×2 (05:17→18:48)
[2023-09-06 06:39] LABS: Basophils % 0.3 %; Eosinophils # 0.2 10^3/uL (0.0-0.8); Eosinophils % 4.1 %; Hematocrit 29.8 % (36-47); Lymphocytes % 16.4 %; Mean Corpuscular HGB Conc 28.5 g/dL (30-55); Mean Corpuscular Hemoglobin 26.8 pg (27-33); Mean Platelet Volume 8.2 fL (7.4-10.4); Monocytes # 0.4 10^3/uL (0.2-0.9); Neutrophils # 4.27 10^3/uL (1.8-7.7); Neutrophils % 72.7 %; Nucleated Red Blood Cells % 0 %; Platelet Count 213 10^3/cmm (157-399); Red Blood Count 3.17 10^6/uL (3.85-5.65); Red Cell Distribution Width 17.1 % (12.1-15.1); White Blood Count 5.87 10^3/uL (3.29-11.43)
[2023-09-06 06:58] LABS: Blood Urea Nitrogen 30 mg/dL (8-23); Calcium 8.6 mg/dL (8.5-10.5); Carbon Dioxide 22 mmol/L (22-29); Chloride 109 mmol/L (98-107); Creatinine Clr Calc Pharmacy 37.1077; Glucose 169 mg/dL (65-115); Osmolality Calculated 306 mOsm/kg (285-295); Phosphorus 4.2 mg/dL (2.5-4.5); Sodium 143 mmol/L (136-145)
[2023-09-06 08:27] LABS: Glucose Point of Care 182 mg/dL (70-110)
[2023-09-06] MEDS: duloxetine 60 mg Capsule PO (08:51)
[2023-09-06] MEDS: duloxetine 30 mg Capsule PO (08:51)
[2023-09-06] MEDS: pantoprazole DR 40 mg Tablet PO (08:51)
[2023-09-06] MEDS: aspirin 81 mg EC Tablet PO (08:51)
--- NOTE | 2023-09-06 08:51 | PC.CHAP ---
Pastoral Care Encounter/Spiritual Assessment Type of Contact [] Declined roller hand visit [] Patient/Family/Request visit [] Outpatient visit [] Follow-up visit [] Physician referral [] Code/Alert [] Routine visit [] Staff referral [] Actively dying [x] Patient sleeping [] Family support [] [] Out of room [] Palliative care [] [] Receiving care in room [] Pre-surgical visit [] Trauma [] Long length of stay [] ICU visit [] Other: Relational/Emotional Strength [] Patient feels connected with others/family/visitors/staff [] Distress [] Loneliness/isolation [] Abandonment Spirituality of Patient [] Person of Olga Lidia [] Attends Spiritism of their Olga Lidia [] Believes in Prayer [] Reads Bible or Shinto materials [] There are 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 issues 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 [] Prayer [] Active listening [] Non-anxious presence [] Spiritual/emotional support [] Crisis/trauma care [] Spiritual counseling [] Bereavement support [] Provided bereavement packet [] Provided Bible/devotional materials [] Provided toy/stuffed animal, coloring book to patient or family member [] Provided Communion [] Anointing/[place] [] Salvation [] Completed spiritual assessment [] Other: Impact on Illness or Injury [] Angry [] Fearful [] Anxious [] Often cries [] Exhaustion [] Unable to work [] Unable to attend jainism [] Unable to walk/stand [] Unable to read [] Unable to drive [] Unable to eat/drink [] Unable to sleep [] Unable to be with family [] Patient intubated [] Other: Summary Time spent with patient
[2023-09-06] MEDS: insulin lispro 100 unit/1 mL SUBCUT ×2 (08:54→17:13)
[2023-09-06 10:24] LABS: CENTROMERE B ANTIBODY <1.0 NEG AI (<1.0 NEG); JO-1 ANTIBODY <1.0 NEG AI (<1.0 NEG); RNP ANTIBODY 1.6 POS AI (<1.0 NEG); SCL-70 ANTIBODY <1.0 NEG AI (<1.0 NEG); SJOGREN'S ANTIBODY (SS-A) <1.0 NEG AI (<1.0 NEG); SM ANTIBODY <1.0 NEG AI (<1.0 NEG); SS-B <1.0 NEG AI (<1.0 NEG)
[2023-09-06 11:03] LABS: Glucose Point of Care 134 mg/dL (70-110)
[2023-09-06 13:32] LABS: Basophils % 0.2 %; Eosinophils # 0.3 10^3/uL (0.0-0.8); Eosinophils % 4.2 %; Lymphocytes # 0.5 10^3/uL (0.8-4.8); Mean Corpuscular Hemoglobin 26.7 pg (27-33); Mean Platelet Volume 8.2 fL (7.4-10.4); Monocytes # 0.3 10^3/uL (0.2-0.9); Monocytes % 4.2 %; Neutrophils # 5.49 10^3/uL (1.8-7.7); Neutrophils % 82.9 %; Nucleated Red Blood Cells % 0 %; Platelet Count 218 10^3/cmm (157-399); Red Blood Count 3.26 10^6/uL (3.85-5.65); Red Cell Distribution Width 17.2 % (12.1-15.1); White Blood Count 6.62 10^3/uL (3.29-11.43)
--- NOTE | 2023-09-06 15:12 | P.PN_ITS ---
Subjective 2 Subjective: Patient was seen this morning, she continues to complain of drainage and pain at surgical site, continues to have swelling, erythema, tenderness, along surgical site with active drainage, mucopurulent, but a bit improved compared to yesterday in terms of size, but still widespread along surgical site, no fevers, no chills Vitals/I&O/Wt Last Vital Signs Temp 98.4 F 09/06/23 11:19 Pulse 61 09/06/23 11:19 Resp 16 09/06/23 14:02 BP 120/65 09/06/23 11:19 Pulse Ox 95 09/06/23 11:19 O2 Del Method Nasal Cannula 09/06/23 11:19 O2 Flow Rate 3 09/06/23 08:00 09/06/23 09/06/23 09/06/23 06:59 14:59 22:59 Intake Total 1207.5 / 1747.5 410 / 410 Output Total 50 / 325 100 / 100 Balance 1157.5 / 1422.5 310 / 310 Weight last 48 hrs Weight 78.562 kg Weight 75.115 kg Weight 95.254 kg Physical Exam 2 Const: COMMON NORMALS: no acute distress and patient oriented x3 Resp: COMMON NORMALS: normal respiratory effort, No retractions, No use of accessory muscles and clear to auscultation bilaterally AUSCULTATION: clear to auscultation bilaterally Cardio: COMMON NORMALS: regular rate, regular rhythm, S1 normal heart sound present and S2 normal heart sound present RATE: regular rate RHYTHM: r egular rhythm HEART SOUNDS: S1 normal heart sound present and S2 normal heart sound present GI: COMMON NORMALS: Normal to inspection, nondistended, normoactive bowel sounds present and non-tender Extremity: COMMON NORMALS: no pedal edema Neuro: COMMON NORMALS: patient oriented x3 Psych: COMMON NORMALS: mental status grossly normal Data 09/06/23 13:24 09/06/23 06:15 Micro: Microbiology 09/05/23 18:40 Gram Stain - Final Arm - Right Anaerobic Culture - Preliminary Wound Culture - Preliminary 09/05/23 10:08 Blood Culture - Preliminary Blood NEGATIVE TO DATE 09/05/23 10:02 Blood Culture - Preliminary Blood NEGATIVE TO DATE A&P Assessment and plan (1) Cellulitis: Qualifiers: Laterality: right Site of cellulitis: extremity Site of cellulitis of extremity: upper extremity Qualified Code(s): L03.113 - Cellulitis of right upper limb (2) Closed fracture of humerus, shaft: Qualifiers: Encounter type: initial encounter Fracture morphology: other fracture Laterality: right Qualified Code(s): S42.391A - Other fracture of shaft of right humerus, initial encounter for closed fracture (3) Surgical site infection: (4) Rash: (5) Encephalopathy acute: Plan Acute encephalopathy, resolving ?Neurochecks -Aspiration precautions ?NIH stroke scale Surgical site infection, cellulitis,status post open reduction internal fixation right humeral shaft fracture CT with IV contrast of surgical site CCESSION #: [id number] CT/[place] [id number] IMPRESSION: 1. Small suspected developing abscess or phlegmon in the anterior RIGHT upper arm in the subcutaneous soft tissues extending to the skin. Recommend correlation for overlying cellulitis. 2. RIGHT upper extremity arteries appear patent. 3. If concern for venous SVT or DVT this would be better evaluated with ultrasound. 4. Anterior RIGHT acetabular fracture with callus formation has a chronic appearance. Chronic appearing RIGHT inferior pubic ramus fracture with callus formation. 5. No other new findings. ? Plan ? Will obtain cultures from drainage site ? Follow blood cultures ? Venous ultrasound no DVT ? IV vancomycin ? IV Zosyn ? Monitor clinical status ? Orthopedic service has been consulted Rash bilateral lower extremities, nonpruritic ? Maculopapular, nonblanching ? KATLYN panel ? IgA ? Will monitor Type 2 diabetes mellitus, moderate dose sliding scale Acute on chronic anemia, ? Hemoglobin 8.7 -Monitor Acute kidney injury ? Creatinine 1.3 ? Monitor Patient requires hospitalization ? Full code ? Lovenox for DVT prophylaxis ? Protonix for GI prophylaxis Attestations 2 Medical Necessity Statement*: Plan for today continue IV antibiotics, monitor closely, monitor surgical site, monitor cultures, monitor hemoglobin Diagnoses Cellulitis L03.113 Laterality: right Site of cellulitis: extremity Site of cellulitis of extremity: upper extremity Other closed fracture of shaft of right humerus, initial encounter S42.391A Encounter type: initial encounter Fracture morphology: other fracture Laterality: right Surgical site infection T81.49XA Rash R21 Encephalopathy acute G93.40
--- NOTE | 2023-09-06 15:44 | PM.PN ---
Subjective Subjective: Patient was seen this afternoon, and her surgical site has improved since yesterday. She is still having some drainage from the site, and she continues to have erythema and tenderness. In addition, her previously noted radial nerve palsy remains. She has no signs of sepsis such as fever or chills. There is no elevation of white blood cell count. Medications: Reviewed: Yes Vitals/I&O/Wt Last Vital Signs Temp 98.4 F 09/06/23 11:19 Pulse 71 09/06/23 14:00 Resp 16 09/06/23 14:02 BP 120/65 09/06/23 11:19 Pulse Ox 95 09/06/23 11:19 O2 Del Method Nasal Cannula 09/06/23 11:19 O2 Flow Rate 3 09/06/23 08:00 09/06/23 09/06/23 09/06/23 06:59 14:59 22:59 Intake Total 1207.5 / 1747.5 410 / 410 Output Total 50 / 325 100 / 100 Balance 1157.5 / 1422.5 310 / 310 Weight last 48 hrs Weight 173 lb 3.2 oz Weight 165 lb 9.6 oz Weight 210 lb Physical Exam Const: COMMON NORMALS: no acute distress, average body habitus and alert GENERAL APPEARANCE: cooperative and comfortable NUTRITIONAL APPEARANCE: overweight ORIENTATION/CONSCIOUSNESS: Yes awake HENMT: COMMON NORMALS: normocephalic and atraumatic HEAD & SCALP: normocephalic and atraumatic Eye: GENERAL EYE: appearance normal, both eyes and all related structures Chest: COMMONS NORMALS: normal inspection of the chest Resp: COMMON NORMALS: normal respiratory effort EFFORT & INSPECTION: Yes able to speak in complete sentences and Yes symmetric chest movement Extremity: RIGHT UPPER EXTREMITY: Yes upper arm (Incision is red and swollen. There is no obvious abscess. 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.) Neuro: SENSORIUM/ORIENTATION: Yes alert Psych: APPEARANCE: Yes grossly normal ATTITUDE: Yes calm and Yes engaged ATTENTION/CONCENTRATION: Yes attention grossly intact Skin: COMMON NORMALS: no rashes or lesions noted GENERAL SKIN EXAM: no rashes or lesions noted Data 09/06/23 13:24 09/06/23 06:15 Micro: Microbiology 09/05/23 18:40 Gram Stain - Final Arm - Right Anaerobic Culture - Preliminary Wound Culture - Preliminary 09/05/23 10:08 Blood Culture - Preliminary Blood NEGATIVE TO DATE 09/05/23 10:02 Blood Culture - Preliminary Blood NEGATIVE TO DATE A&P Assessment and plan (1) Surgical site infection: This 77-year-old woman was admitted from her care facility with redness and swelling about the upper arm. There is no jong drainage at the time of admission, but there was some oozing from the previous incision. Her surgical date was August 02 of this year. She was seen in the office by Dr. Martin in early August and again on August 20. At that time, she was placed on Bactrim as she was having some redness about the incision site. She was to be seen back, however, she came to the emergency department after having increased drainage. She was sent there by her primary care provider. She is being admitted for IV antibiotics. CT scan demonstrated no obvious abscess, so surgical intervention is not planned at this point. Ongoing IV antibiotics will be administered, and subsequent CT may be of value to further assess whether there has been development of a true abscess. Today, the patient has improved somewhat on IV antibiotics. We will continue to observe, and should she worsen or develop symptoms of sepsis, this would require surgical intervention. We would leave the plate in place, and the surgical intervention would be in the form of incision and drainage with irrigation. (2) Closed fracture of humerus, shaft: No x-rays will be obtained. Qualifiers: Encounter type: initial encounter Fracture morphology: other fracture Laterality: right Qualified Code(s): S42.391A - Other fracture of shaft of right humerus, initial encounter for closed fracture (3) Cellulitis: Qualifiers: Laterality: right Site of cellulitis: extremity Site of cellulitis of extremity: upper extremity Qualified Code(s): L03.113 - Cellulitis of right upper limb Attestations Medical Necessity Statement*: Ongoing care per medical service Coding Level of Care Code Acute Code for [facility] Fwd Diagnoses Surgical site infection T81.49XA Other closed fracture of shaft of right humerus, initial encounter S42.391A Encounter type: initial encounter Fracture morphology: other fracture Laterality: right Cellulitis L03.113 Laterality: right Site of cellulitis: extremity Site of cellulitis of extremity: upper extremity
[2023-09-06 16:08] LABS: COMPLEMENT COMPONENT C3C 165 mg/dL (83-193); COMPLEMENT COMPONENT C4C 20 mg/dL (15-57)
[2023-09-06 16:09] LABS: Ferritin 168 ng/mL (15-150); Iron 87 ug/dL (37-145)
[2023-09-06 16:47] LABS: Glucose Point of Care 150 mg/dL (70-110)
[2023-09-06] MEDS: enoxaparin 40 mg/0.4 mL Syringe SUBCUT (17:03)
--- NOTE | 2023-09-06 18:17 | XRR_ITS ---
PROCEDURE INFORMATION: Exam: XR Right Humerus Exam date and time: 09/06/2023 9:20 PM Age: 77 years old Clinical indication: Injury or trauma; Fall; Fracture, traumatic injury; Closed fracture; Right; Prior surgery; Surgery date: <1 month; Surgery type: Humerus FX repair 08/03/2023; Additional info: Fracture follow-up TECHNIQUE: Imaging protocol: Radiologic exam of the right humerus. Views: 2 or more views. COMPARISON: CR (CHEST, ) 12/18/2021 4:48 AM FINDINGS: Bones/joints: A surgical plate with fixation screws overlies the comminuted fracture of the humeral diaphysis. There is surrounding callus formation suggesting healing. The proximal most screw is visualized separate and medially adjacent to the surgical plate. Chronic appearing deformity of the humeral head/neck with degenerative changes of the right shoulder. Soft tissues: Normal. XR/[place] [id number] IMPRESSION: A surgical plate with fixation screws overlies a healing comminuted fracture of the humeral diaphysis. The proximal most screw is visualized separate and medially adjacent to the surgical plate, similar compared to prior CTA chest September 05, 2023. Chronic appearing deformity of the humeral head/neck with degenerative changes of the right shoulder.
--- NOTE | 2023-09-06 20:40 | PC.NURSE ---
Dr. Berg notified that patient only has PRN IV Morphine for pain. Asked Dr. Berg if the patient could have something oral for PRN pain. PRN Oxy ordered. Patient states that she does not know if she has taken Oxycodone before. I asked patient what her reaction to Hydrocodone is and she states it makes me a little bit confused.
[2023-09-06] MEDS: oxyCODONE 5 mg IR Tab/Cap PO (20:44)
[2023-09-06] MEDS: atorvastatin 40 mg Tablet 20 MG PO (20:44)
--- NOTE | 2023-09-06 20:50 | PC.NURSE ---
Patient asking that those things be removed from her legs. Patient educated that the doctor wants her to wear them to prevent blood clots. Educated that I will have to chart patient refused in her chart if she does not want to wear them. Patient verbalized understanding.
[2023-09-06 21:17] LABS: Glucose Point of Care 150 mg/dL (70-110)
--- NOTE | 2023-09-06 22:44 | PC.NURSE ---
Patient oriented x2 upon shift assessment. Bed alarm set.
[2023-09-07] VITALS (12 sets, daily range): BP systolic 121–157; BP diastolic 61–78; PULSE 69–99; RESP 16–20; TEMP 36.4–37; O2SAT 2–99
[2023-09-07] MEDS: vancomycin 1,250 MG/250 ML PIGGYBACK 250 MG IV (00:51)
[2023-09-07] MEDS: piperacillin-tazobactam 3.375 GM in sodium chloride 0.9% (plus) 50 ML IV ×3 (01:52→18:05)
--- NOTE | 2023-09-07 05:08 | PC.NURSE ---
Addendum entered by Debra Mackey RN 09/07/23 05:15: After discussing with patient, patient agreed to have blood drawn after breakfast around 9 am. Lab notified. Original Note: Phlebotomy staff came to me to notify me that patient is refusing to have her blood drawn.
[2023-09-07 06:07] LABS: Glucose Point of Care 152 mg/dL (70-110)
[2023-09-07] MEDS: duloxetine 60 mg Capsule PO (08:40)
[2023-09-07] MEDS: duloxetine 30 mg Capsule PO (08:40)
[2023-09-07] MEDS: aspirin 81 mg EC Tablet PO (08:40)
[2023-09-07] MEDS: insulin lispro 100 unit/1 mL SUBCUT ×2 (08:40→18:12)
[2023-09-07] MEDS: pantoprazole DR 40 mg Tablet PO (08:40)
[2023-09-07] MEDS: oxyCODONE 5 mg IR Tab/Cap PO ×3 (08:47→20:26)
[2023-09-07 09:09] LABS: ANA SCREEN, IFA NEGATIVE (NEGATIVE)
[2023-09-07 09:59] LABS: Basophils % 0.3 %; Eosinophils # 0.5 10^3/uL (0.0-0.8); Eosinophils % 7.4 %; Hematocrit 25.6 % (36-47); Lymphocytes # 0.9 10^3/uL (0.8-4.8); Lymphocytes % 14.6 %; Mean Corpuscular HGB Conc 30.1 g/dL (30-55); Mean Corpuscular Volume 89.8 fl (85-98); Monocytes # 0.4 10^3/uL (0.2-0.9); Monocytes % 5.9 %; Neutrophils # 4.46 10^3/uL (1.8-7.7); Neutrophils % 71.3 %; Nucleated Red Blood Cells % 0 %; Platelet Count 183 10^3/cmm (157-399); Red Blood Count 2.85 10^6/uL (3.85-5.65); Red Cell Distribution Width 16.9 % (12.1-15.1); White Blood Count 6.25 10^3/uL (3.29-11.43)
--- NOTE | 2023-09-07 10:15 | PC.CHAP ---
Pastoral Care Encounter/Spiritual Assessment Type of Contact [] Declined finishing tunnel operator visit [] Patient/Family/Request visit [] Outpatient visit [] Follow-up visit [] Physician referral [] Code/Alert [x] Routine visit [] Staff referral [] Actively dying [] Patient sleeping [] Family support [] [] Out of room [] Palliative care [] [] Receiving care in room [] Pre-surgical visit [] Trauma [] Long length of stay [] ICU visit [] Other: Relational/Emotional Strength [x] Patient feels connected with others/family/visitors/staff [] Distress [] Loneliness/isolation [] Abandonment Spirituality of Patient [x] Person of Olga Lidia [x] Attends Bahai of their Olga Lidia [x] Believes in Prayer [] Reads Bible or Pentecostal materials [] There are Spiritual issues to be addressed Food Preparer Interventions [x] Prayer [x] Active listening [x] Non-anxious presence [] Spiritual/emotional support [] Crisis/trauma care [] Spiritual counseling [] Bereavement support [] Provided bereavement packet [] Provided Bible/devotional materials [] Provided toy/stuffed animal, coloring book to patient or family member [] Provided Communion [] Anointing/Oriental [] Salvation [] Completed spiritual assessment [] Other: Impact on Illness or Injury [] Angry [] Fearful [] Anxious [] Often cries [] Exhaustion [] Unable to work [] Unable to attend taoist [] Unable to walk/stand [] Unable to read [] Unable to drive [] Unable to eat/drink [] Unable to sleep [] Unable to be with family [] Patient intubated [] Other: Summary Prayer, Time spent with patient 5 min
[2023-09-07 10:17] LABS: Alanine Aminotransferase 19 U/L (0-33); Albumin Level 3.1 g/dL (3.5-5.2); Alkaline Phosphatase 164 U/L (35-105); Anion Gap 17.4 (5-19); Aspartate Amino Transferase 21 U/L (0-32); Blood Urea Nitrogen 18 mg/dL (8-23); C Reactive Protein 69.4 mg/L (0.0-4.9); Calcium 8.5 mg/dL (8.5-10.5); Carbon Dioxide 19 mmol/L (22-29); Chloride 110 mmol/L (98-107); Creatinine Clr Calc Pharmacy 48.4349; Globulin 3.1 g/dL (1.3-4.6); Glucose 140 mg/dL (65-115); Magnesium 1.7 mg/dL (1.7-2.3); Osmolality Calculated 298 mOsm/kg (285-295); Phosphorus 3.2 mg/dL (2.5-4.5); Potassium 4.4 mmol/L (3.5-5.1); Sodium 142 mmol/L (136-145); Total Bilirubin 0.6 mg/dL (0.15-1.2); Total Protein 6.2 g/dL (6.6-8.7)
[2023-09-07 10:40] LABS: Glucose Point of Care 132 mg/dL (70-110)
[2023-09-07 10:44] LABS: Procalcitonin 0.12 ng/mL (0-0.5)
--- NOTE | 2023-09-07 11:11 | US_ITS ---
WS: [id number] ULTRASOUND SOFT TISSUE INDICATION: Abscess TECHNIQUE: Ultrasound soft tissue of concern FINDINGS: Ultrasound soft tissue area of concern anterior humerus along the surgical incision site. D iffuse underlying edema deep to the incision site. Small surgical tract with a tiny amount of fluid. Surrounding tiny pockets of fluid likely due to developing abscess. Largest pocket measures approxima tely 8 mm. No other acute findings. US/US soft tissue/extremity [id number] IMPRESSION: See above Discussed with Dr. Schwartz 09/07/2023 11:53 AM
[2023-09-07 11:58] LABS: THYROID PEROXIDASE ANTIBODIES 1 IU/mL (<9)
[2023-09-07 12:27] LABS: Hematocrit 29.3 % (36-47)
--- NOTE | 2023-09-07 12:47 | US_ITS ---
WS: [id number] ULTRASOUND-GUIDED ABSCESS DRAINAGE INDICATION: Abscess TECHNIQUE: The procedure including risks, benefits, and complications were discussed with the patient who agreed to proceed. Using sterile technique patient was prepped and draped in the usual sterile f ashion. Timeout was performed. After 1% lidocaine, using ultrasound guidance, an 18-gauge needle was advanced into the multiloculated fluid collection in the subcutaneous soft tissues of the RIGHT humer us. Approximately 10 cc of bloody fluid was aspirated. Fluid was sent for requested cultures. No imme diate complications. US/US guide [facility] asp a/c/h [id number] IMPRESSION: Uncomplicated ultrasound-guided aspiration of the soft tissue absce ss RIGHT upper extremity
--- NOTE | 2023-09-07 14:00 | P.CONIM_ITS ---
Providers/Reason For Consult 2 Consulting Physician/Specialty*: Rae Slaughter MD/ Infectious Disease Reason for Consult*: shoulder infection Requesting Physician: Farshad Chawla MD Attending Physician: Farshad Chawla MD Primary Care Provider: Alem Auguste History of Present Illness History of Present Illness Deyanira Gonsales is a 77 year old female with a past medical history of CAD, history of CABG, CKD, hypertension, sleep apnea, history of stroke, COPD who is admitted to [facility] since 09/04 due to right upper extremity pain, swelling, drainage from surgical site. She underwent Open reduction internal fixation of right humerus shaft fracture on 08/03/23 after previously being admitted for a fall and fracture on 07/18. She had been in significant pain and appears also had a wrist drop therefore underwent surgical fixation. Since surgery her pain appears to have persisted, she received a brace on August. By August 20 she was noted to have redness and drainage around the incision. Patient was itching at it. She received a prescription for Bactrim. She presented to the ER on September 04 due to upper extremity pain and continued drainage. CT of the extremity showed developing abscess or phlegmon in the right anterior upper arm in the subcutaneous soft tissue and skin. Note was made of anterior right acetabular fracture with callus formation with chronic appearance. Patient is unable to provide much history. Review of Systems 2 General: Reports: 10 or more systems reviewed and unremarkable except in HPI and below Const: Denies: fever(s), chills or body aches Eyes: Denies: change in vision, blurry vision or photophobia ENMT: Reports: hoarseness; Denies: throat pain, enlarged tonsils, odynophagia or nasal congestion Card: Denies: chest pain, palpitations, irregular heart rhythm, edema, swelling of feet/ankles, lightheadedness, pre-syncope, dyspnea on exertion or orthopnea Resp: Denies: dyspnea, productive cough, non-productive cough, wheezing, stridor, pain on inspiration, change in phlegm color, hemoptysis or chest congestion GI: Denies: abdominal pain, nausea, vomiting, hematemesis, coffee ground emesis, dysphagia, heartburn, diarrhea, constipation, GI cramping, change in stool character, hematochezia or melena : Denies: flank pain, difficulty voiding, dysuria, urinary frequency, urinary urgency, urinary hesitancy or hematuria Musc: Denies: neck pain, back pain, extremity pain, joint swelling, joint warmth or deformity Neuro: Denies: headache(s), numbness in extremities, weakness in extremities, sensory changes, difficulty walking, frequent falls, dizziness, vertigo, behavioral changes, Slurred speech present or seizure-like activity Psych: Denies: anxiety, depression, suicidal ideation or homicidal ideation Endo: Denies: polyuria, polydipsia, tired all the time, cold intolerance or hot flashes Casey/Lymph: Denies: easy bruising or easy bleeding Medications/Allergies Home Medications Medication Instructions Recorded Confirmed Last Taken Type duloxetine 60 mg capsule,delayed 60 mg PO DAILY 06/20/19 09/05/23 09/05/23 History release sprinkle aspirin 81 mg tablet,delayed 81 mg PO DAILY #30 tabs 06/25/19 09/05/23 09/05/23 Rx release (Farzana Low Dose Aspirin) methocarbamol 500 mg tablet 500 mg PO QID PRN Muscle Spasms 06/25/19 09/05/23 09/02/23 Rx #14 tabs insulin glargine 100 unit/mL 55 unit SUBCUT QPM 12/12/21 09/05/23 09/04/23 History subcutaneous solution (Lantus U-100 Insulin) budesonide 180 mcg/actuation 1 inh inhalation BID #1 ea 12/20/21 09/05/23 09/05/23 Rx breath activated powder inhaler (Pulmicort Flexhaler) albuterol sulfate 2.5 mg/3 mL 2.5 mg inhalation Q6H PRN 07/16/23 09/05/23 07/24/23 History (0.083 %) solution for nebulization Shortness Of Breath atorvastatin 20 mg tablet 20 mg PO BEDTIME 07/16/23 09/05/23 09/04/23 History duloxetine 30 mg capsule,delayed 30 mg PO DAILY 07/16/23 09/05/23 09/05/23 History release insulin lispro 100 unit/mL See Rx Instructions .Route 07/16/23 09/05/23 09/05/23 History subcutaneous pen (Humalog KwikPen .COMPLEX PRN blood sugar (U-100) Insulin) metoprolol tartrate 25 mg tablet 25 mg PO BID 07/16/23 09/05/23 09/05/23 History pantoprazole 40 mg tablet,delayed 40 mg PO DAILY 07/16/23 09/05/23 09/05/23 History release umeclidinium 62.5 mcg-vilanterol 1 ea inhalation DAILY 07/16/23 09/05/23 09/05/23 History 25 mcg/actuation powdr for inhalation (Anoro Ellipta) furosemide 40 mg tablet 40 mg PO DAILY PRN Swelling #2 tabs 07/19/23 09/05/23 07/16/23 Rx acetaminophen 325 mg tablet 650 mg PO Q6H PRN pain/fever 08/03/23 09/05/23 08/31/23 History (Tylenol) alprazolam 0.5 mg tablet 0.5 mg PO BID PRN Anxiety 08/03/23 09/05/23 09/02/23 History bisacodyl 10 mg rectal suppository 10 mg KS DAILY PRN Constipation 08/03/23 09/05/23 Unknown History docusate sodium 100 mg capsule 100 mg PO DAILY 08/03/23 09/05/23 09/05/23 History (Colace) ketoconazole 2 % shampoo 1 applic topical .2XWEEKLY PRN 08/03/23 09/05/23 Unknown History lather magnesium hydroxide 400 mg/5 mL 30 ml PO DAILY PRN Constipation 08/03/23 09/05/23 Unknown History oral suspension (Milk of Magnesia) sodium phosphates 19 gram-7 118 ml KS DAILY PRN Constipation 08/03/23 09/05/23 Unknown History gram/118 mL enema (Fleet Enema) Wrist brace #1 ea 08/07/23 09/05/23 Unknown Rx tramadol 50 mg tablet 50 mg PO Q8H PRN pain #20 tabs 08/21/23 09/05/23 09/02/23 Rx amino acids-protein hydrolysate 15 1 ea PO DAILY 09/05/23 09/05/23 09/05/23 History gram-101 kcal/30 mL oral liquid diphenhydramine HCl 25 mg capsule 25 mg PO DAILY PRN Allergic 09/05/23 09/05/23 09/01/23 History (Benadryl) Reaction hydrocortisone 1 % topical cream 1 applic topical QID PRN RASH/ITCH 09/05/23 09/05/23 Unknown History lactobacillus combination no.4 3 3,000 mmu cells PO DAILY PRN WHILE 09/05/23 09/05/23 Unknown History billion cell capsule (Probiotic) ON ANTIBIOTICS linezolid 600 mg tablet 600 mg PO BID 09/05/23 09/05/23 09/05/23 History nystatin 100,000 unit/gram topical 1 applic topical BID PRN REDNESS 09/05/23 09/05/23 Unknown History powder polyethylene glycol 3350 17 See Rx Instructions .Route .COMPLEX 09/05/23 09/05/23 09/05/23 History gram/dose oral powder (Miralax) Allergies Allergy/AdvReac Type Severity Reaction Status Date / Time acetaminophen [From Vicodin] Allergy ADR-Confusi Verified 08/21/23 14:10 on cephalexin Allergy ALGY-Hives Verified 08/21/23 14:10 fluticasone Allergy Unknown Verified 08/21/23 14:10 [From Advair Diskus] hydrocodone [From Vicodin] Allergy ADR-Confusi Verified 08/21/23 14:10 on nitrofurantoin Allergy ALGY-Hives Verified 08/21/23 14:10 [From Macrobid] salmeterol Allergy Unknown Verified 08/21/23 14:10 [From Advair Diskus] Current Medications Generic Name Dose Route Start Last Admin Trade Name Freq PRN Reason Stop Dose Admin Aspirin 81 mg 09/06/23 09:00 09/07/23 08:40 Aspirin 81 Mg Ec Tablet PO 81 mg DAILY KARI Administration Atorvastatin Calcium 20 mg 09/05/23 21:00 09/06/23 20:44 Atorvastatin 40 Mg Tablet PO 20 mg BEDTIME KARI Administration Duloxetine HCl 30 mg 09/06/23 09:00 09/07/23 08:40 Duloxetine 30 Mg Capsule PO 30 mg DAILY KARI Administration Duloxetine HCl 60 mg 09/06/23 09:00 09/07/23 08:40 Duloxetine 60 Mg Capsule PO 60 mg DAILY KARI Administration Enoxaparin Sodium 40 mg 09/05/23 16:48 09/07/23 18:05 Enoxaparin 40 Mg/0.4 Ml Syringe SUBCUT 40 mg Q24H KARI Administration Piperacillin Sod/Tazobactam 50 mls @ 12.5 mls/hr 09/05/23 17:00 09/07/23 18:05 Sod 3.375 gm/ Sodium Chloride IV 12.5 mls/hr Q8H KARI Administration Protocol Vancomycin/PEG/NADA/Lysine/Water 1,250 mg in 250 mls @ 250 mls/hr 09/06/23 01:00 09/07/23 01:44 Vancocin IV Infused Q24H KARI Infusion Insulin Human Lispro 0 unit 09/05/23 18:00 09/07/23 18:12 Insulin Lispro 100 Unit/1 Ml SUBCUT 4 unit TIDWM KARI Administration Protocol Morphine Sulfate 2 mg 09/05/23 16:48 09/07/23 15:51 Morphine 4 Mg/Ml Sdv 1 Ml IVP 2 mg Q4H PRN Administration SEVERE PAIN Oxycodone HCl 5 mg 09/06/23 20:39 09/07/23 13:49 Oxycodone 5 Mg Ir Tab/Cap PO 5 mg Q4H PRN Administration MODERATE PAIN Pantoprazole Sodium 40 mg 09/06/23 09:00 09/07/23 08:[address] 40 Mg Tablet PO 40 mg DAILY KARI Administration PFSH Acute 2 PFSH: Medical History Hypertension Obstructive sleep apnea intolerant of cpap Coronary artery disease CKD (chronic kidney disease) stage 3, GFR 30-59 ml/min Pneumonia Stroke Coffee ground emesis 2021 Nephrolithiasis Peripheral neuropathy Depression Diabetes mellitus type 2 in obese COPD (chronic obstructive pulmonary disease) Chronically uses 2 L per nasal cannula Surgical History History of ankle surgery History of cataract surgery History of bladder surgery History of carpal tunnel surgery History of shoulder surgery History of appendectomy Hx of CABG 2004 Family History Other Dementia Social History Smoking and tobacco/nicotine status: former use of tobacco/nicotine Quit status (tobacco/nicotine): has quit using Year quit tobacco: 12/2022 Alcohol intake: never Substance/Drug Use: never Vitals/I&O/Wt Last Vital Signs Temp 98.3 F 09/07/23 15:35 Pulse 74 08/02/24 15:35 Resp 18 09/07/23 15:35 BP 121/64 09/07/23 15:35 Pulse Ox 90 09/07/23 15:35 O2 Del Method Room Air 09/07/23 15:35 O2 Flow Rate 2 09/07/23 09:20 09/07/23 09/07/23 09/07/23 06:59 14:59 22:59 Intake Total 420 / 2130 1170 / 1170 Output Total 600 / 900 Balance -180 / 1230 1170 / 1170 Weight last 48 hrs Weight 79.197 kg Weight 78.562 kg Physical Exam 2 Narrative: General: No acute distress, AO x3 HEENT: PERRLA, pupils bilaterally equal and reactive, pallors not present Chest: Normal vesicular breath sounds, no added sounds, equal good air entry bilaterally CVS: S1-S2 regular, no murmurs, no tachycardia, no gallops, no rubs Abdomen: Soft, nontender, no organomegaly, bowel sounds present Neuro: No focal deficits, no facial deformity, AO x3, power 5/5 in all limbs EXT: erythema, warmth and tenderness over inferior end of incision over her right shoulder. Data 09/10/23 13:20 09/10/23 13:20 Micro: Microbiology 09/07/23 13:25 Gram Stain - Final Other Source 09/05/23 18:40 Gram Stain - Final Arm - Right Anaerobic Culture - Preliminary Wound Culture - Preliminary Other data: [place] [id number] IMPRESSION: 1. Small suspected developing abscess or phlegmon in the anterior RIGHT upper arm in the subcutaneous soft tissues extending to the skin. Recommend correlation for overlying cellulitis. 2. RIGHT upper extremity arteries appear patent. 3. If concern for venous SVT or DVT this would be better evaluated with ultrasound. 4. Anterior RIGHT acetabular fracture with callus formation has a chronic appearance. Chronic appearing RIGHT inferior pubic ramus fracture with callus formation. 5. No other new findings. CONCLUSIONS No evidence of thrombus of the right upper extremity veins. A&P Assessment and plan (1) Surgical site infection: (2) Arm abscess: (3) Fracture of proximal humerus: Qualifiers: Encounter type: initial encounter Fracture alignment: displaced F racture morphology: other fracture Fracture type: closed Laterality: right Qualified Code(s): S42.291A - Other displaced fracture of upper end of right humerus, initial encounter for closed fracture Plan 78-year-old lady with recent history of open reduction internal fixation of right humeral shaft for a fracture, postop course complicated by development of cellulitis and developing phlegmon. CT of the arm showing developing abscess and phlegmon. Reviewed orthopedics evaluation. Recommend to obtain ultrasound-guided aspiration to obtain specimen for Gram stain and culture. Blood culture thus far negative to date. Continue treatment with IV vancomycin and IV piperacillin/tazobactam while cultures remain pending. Will follow with results of culture, final antibiotic course, duration dependent on cultures and surgical plans Consult Attestations 2 Medical Necessity Statement: per admitting Coding Level of Care Code Acute Code for Chg Fwd High MDM includes number and complexity of problems actively addressed during encounter, amount and/or complexity of data reviewed/ordered and described risk of complication, morbidity or mortality of management as documented Diagnoses Surgical site infection T81.49XA Arm abscess L02.419 Other closed displaced fracture of proximal end of right humerus, initial encounter S42.291A Encounter type: initial encounter Fracture alignment: displaced Fracture morphology: other fracture Fracture type: closed Laterality: right
[2023-09-07 14:55] LABS: COMPLEMENT, TOTAL (CH50) >60 U/mL (31-60)
--- NOTE | 2023-09-07 15:21 | P.PN_ITS ---
Subjective 2 Subjective: Patient was seen this morning, patient has drainage from surgical site, right arm, with purulence, area of erythema is improving she tells me, is alert oriented x 3, follows all commands, complaints of numbness of her right hand, right forearm, no facial droop no slurring words, no focal weakness, no right lower extremity weakness, Vitals/I&O/Wt Last Vital Signs Temp 97.5 F L 09/07/23 12:00 Pulse 69 09/07/23 14:00 Resp 16 09/07/23 13:49 BP 139/61 09/07/23 12:00 Pulse Ox 94 09/07/23 12:00 O2 Del Method Nasal Cannula 09/07/23 12:00 O2 Flow Rate 2 09/07/23 09:20 09/07/23 09/07/23 09/07/23 06:59 14:59 22:59 Intake Total 420 / 2130 1170 / 1170 Output Total 600 / 900 Balance -180 / 1230 1170 / 1170 Weight last 48 hrs Weight 79.197 kg Weight 78.562 kg Weight 75.115 kg Physical Exam 2 Const: COMMON NORMALS: no acute distress and patient oriented x3 Resp: COMMON NORMALS: normal respiratory effort, No retractions, No use of accessory muscles and clear to auscultation bilaterally AUSCULTATION: clear to auscultation bilaterally Cardio: COMMON NORMALS: regular rate, regular rhythm, S1 normal heart sound present and S2 normal heart sound present RATE: regular rate RHYTHM: r egular rhythm HEART SOUNDS: S1 normal heart sound present and S2 normal heart sound present GI: COMMON NORMALS: Normal to inspection, nondistended, normoactive bowel sounds present and non-tender Extremity: COMMON NORMALS: no pedal edema Neuro: COMMON NORMALS: patient oriented x3 Psych: COMMON NORMALS: mental status grossly normal Data 09/07/23 12:05 09/07/23 09:34 Micro: Microbiology 09/05/23 18:40 Gram Stain - Final Arm - Right Anaerobic Culture - Preliminary Wound Culture - Preliminary A&P Assessment and plan (1) Cellulitis: Qualifiers: Laterality: right Site of cellulitis: extremity Site of cellulitis of extremity: upper extremity Qualified Code(s): L03.113 - Cellulitis of right upper limb (2) Closed fracture of humerus, shaft: Qualifiers: Encounter type: initial encounter Fracture morphology: other fracture Laterality: right Qualified Code(s): S42.391A - Other fracture of shaft of right humerus, initial encounter for closed fracture (3) Surgical site infection: (4) Rash: (5) Encephalopathy acute: Plan Acute encephalopathy, resolving ?Neurochecks -Aspiration precautions ?NIH stroke scale Surgical site infection, cellulitis,status post open reduction internal fixation right humeral shaft fracture CT with IV contrast of surgical site CCESSION #: [id number] [place] [id number] IMPRESSION: 1. Small suspected developing abscess or phlegmon in the anterior RIGHT upper arm in the subcutaneous soft tissues extending to the skin. Recommend correlation for overlying cellulitis. 2. RIGHT upper extremity arteries appear patent. 3. If concern for venous SVT or DVT this would be better evaluated with ultrasound. 4. Anterior RIGHT acetabular fracture with callus formation has a chronic appearance. Chronic appearing RIGHT inferior pubic ramus fracture with callus formation. 5. No other new findings. ? Plan ? Will obtain cultures from drainage site, consult IR for ultrasound-guided aspiration ? Follow blood cultures ? Venous ultrasound no DVT ? IV vancomycin ? IV Zosyn ? Monitor clinical status ? Orthopedic service has been consulted Radial nerve palsy, right upper extremity -Monitor -Conservative interventions Rash bilateral lower extremities, nonpruritic, looks like a nodule and purpura ? Maculopapular, nonblanching ? KATLYN panel ? IgA ? Will monitor Type 2 diabetes mellitus, moderate dose sliding scale Acute on chronic anemia, ? Hemoglobin 8.7 -Monitor Acute kidney injury ? Creatinine 1.3 ? Monitor Patient requires hospitalization ? Full code ? Lovenox for DVT prophylaxis ? Protonix for GI prophylaxis Plan for today, spoke to infectious disease, discussed aspirating fluid/abscess pockets, to help guide antibiotic therapy, spoke to IR, will undergo ultrasound- guided FNA of abscess site, after ultrasound, patient continues to have serosanguineous drainage from surgical site, erythema has improved, but still quite warm, edematous, spoke to Dr. Black, Attestations 2 Medical Necessity Statement*: Patient requires hospitalization for surgical site infection, spoke to interventional radiology, spoke to infectious disease, spoke to Dr. Black, continue IV antibiotics, blood sugar control, Diagnoses Cellulitis L03.113 Laterality: right Site of cellulitis: extremity Site of cellulitis of extremity: upper extremity Other closed fracture of shaft of right humerus, initial encounter S42.391A Encounter type: initial encounter Fracture morphology: other fracture Laterality: right Surgical site infection T81.49XA Rash R21 Encephalopathy acute G93.40
--- NOTE | 2023-09-07 15:30 | P.PN_ITS ---
Subjective 2 Subjective: Patient is seen today in the room. She is seen with her daughter. Interventional radiology obtained an aspirate of one of the abscesses, and cultures will be pending for 2 to 3 days. I explained to the daughter that Dr. Martin is out of town, and since they began care with him, they would like to continue care with him. It will take that long for cultures to grow and to place the patient on appropriate antibiotics most likely. Medications: Reviewed: Yes Vitals/I&O/Wt Last Vital Signs Temp 98.3 F 09/07/23 15:35 Pulse 74 09/07/23 15:35 Resp 18 09/07/23 15:35 BP 121/64 09/07/23 15:35 Pulse Ox 90 09/07/23 15:35 O2 Del Method Room Air 09/07/23 15:35 O2 Flow Rate 2 09/07/23 09:20 09/07/23 09/07/23 09/07/23 06:59 14:59 22:59 Intake Total 420 / 2130 1170 / 1170 Output Total 600 / 900 Balance -180 / 1230 1170 / 1170 Weight last 48 hrs Weight 174 lb 9.6 oz Weight 173 lb 3.2 oz Physical Exam 2 Const: COMMON NORMALS: no acute distress, average body habitus and alert G ENERAL APPEARANCE: cooperative and comfortable NUTRITIONAL APPEARANCE: o verweight ORIENTATION/CONSCIOUSNESS: Yes awake HENMT: COMMON NORMALS: normocephalic and atraumatic HEAD & SCALP: n ormocephalic and atraumatic Eye: GENERAL EYE: appearance normal, both eyes and all related structures Chest: COMMONS NORMALS: normal inspection of the chest Resp: COMMON NORMALS: normal respiratory effort EFFORT & INSPECTION: Yes able to speak in complete sentences and Yes symmetric chest movement Extremity: RIGHT UPPER EXTREMITY: Yes upper arm (Incision is red and swollen. There is no obvious abscess. Improving) Right upper arm: Yes inspection (There is drainage from the wound.), Yes palpation (Very tender) and Yes neurovascular exam and Yes wrist (There is a radial nerve palsy.) Neuro: SENSORIUM/ORIENTATION: Yes alert Psych: APPEARANCE: Yes grossly normal ATTITUDE: Yes calm and Yes engaged ATTENTION/CONCENTRATION: Yes attention grossly intact Skin: COMMON NORMALS: no rashes or lesions noted GENERAL SKIN EXAM: no rashes or lesions noted Data 09/07/23 12:05 09/07/23 09:34 Micro: Microbiology 09/07/23 13:25 Gram Stain - Final Other Source 09/05/23 18:40 Gram Stain - Final Arm - Right Anaerobic Culture - Preliminary Wound Culture - Preliminary A&P Assessment and plan (1) Surgical site infection: This 77-year-old woman was admitted from her care facility with redness and swelling about the upper arm. There is no jong drainage at the time of admission, but there was some oozing from the previous incision. Her surgical date was August 02 of this year. She was seen in the office by Dr. Martin in early August and again on August 20. At that time, she was placed on Bactrim as she was having some redness about the incision site. She was to be seen back, however, she came to the emergency department after having increased drainage. She was sent there by her primary care provider. She is being admitted for IV antibiotics. CT scan demonstrated no obvious abscess, so surgical intervention is not planned at this point. Ongoing IV antibiotics will be administered, and subsequent CT may be of value to further assess whether there has been development of a true abscess. Today, the patient has improved somewhat on IV antibiotics. The patient underwent an ultrasound-guided aspiration today. We will wait to see what cultures grow from this and begin appropriate antibiotics per infectious disease. I have spoken with the family, and they would like to wait for Dr. Faustin to return since he began the care. I will continue to follow her in his absence. (2) Closed fracture of humerus, shaft: No x-rays will be obtained. Qualifiers: Encounter type: initial encounter Fracture morphology: other fracture Laterality: right Qualified Code(s): S42.391A - Other fracture of shaft of right humerus, initial encounter for closed fracture (3) Cellulitis: Qualifiers: Laterality: right Site of cellulitis: extremity Site of cellulitis of extremity: upper extremity Qualified Code(s): L03.113 - Cellulitis of right upper limb Attestations 2 Medical Necessity Statement*: Per hospitalist team Coding Level of Care Code Acute Code for [facility] Fwd Diagnoses Surgical site infection T81.49XA Other closed fracture of shaft of right humerus, initial encounter S42.391A Encounter type: initial encounter Fracture morphology: other fracture Laterality: right Cellulitis L03.113 Laterality: right Site of cellulitis: extremity Site of cellulitis of extremity: upper extremity
[2023-09-07] MEDS: morphine 4 mg/mL SDV 1 mL 2 MG IVP (15:51)
--- NOTE | 2023-09-07 16:27 | P.PN_ITS ---
Subjective 2 Subjective: Patient was seen this morning, patient has drainage from surgical site, right arm, with purulence, area of erythema is improving she tells me, is alert oriented x 3, follows all commands, complaints of numbness of her right hand, right forearm, no facial droop no slurring words, no focal weakness, no right lower extremity weakness, Medications: Reviewed: Yes Vitals/I&O/Wt Last Vital Signs Temp 98.3 F 09/07/23 15:35 Pulse 74 09/07/23 15:35 Resp 18 09/07/23 15:35 BP 121/64 09/07/23 15:35 Pulse Ox 90 09/07/23 15:35 O2 Del Method Room Air 09/07/23 15:35 O2 Flow Rate 2 09/07/23 09:20 09/07/23 09/07/23 09/07/23 06:59 14:59 22:59 Intake Total 420 / 2130 1170 / 1170 Output Total 600 / 900 Balance -180 / 1230 1170 / 1170 Weight last 48 hrs Weight 174 lb 9.6 oz Weight 173 lb 3.2 oz Physical Exam 2 Const: COMMON NORMALS: no acute distress, average body habitus and alert G ENERAL APPEARANCE: cooperative and comfortable NUTRITIONAL APPEARANCE: o verweight ORIENTATION/CONSCIOUSNESS: Yes awake HENMT: COMMON NORMALS: normocephalic and atraumatic HEAD & SCALP: n ormocephalic and atraumatic Eye: GENERAL EYE: appearance normal, both eyes and all related structures Chest: COMMONS NORMALS: normal inspection of the chest Resp: COMMON NORMALS: normal respiratory effort EFFORT & INSPECTION: Yes able to speak in complete sentences and Yes symmetric chest movement Neuro: SENSORIUM/ORIENTATION: Yes alert Psych: APPEARANCE: Yes grossly normal ATTITUDE: Yes calm and Yes engaged ATTENTION/CONCENTRATION: Yes attention grossly intact Skin: COMMON NORMALS: no rashes or lesions noted GENERAL SKIN EXAM: no rashes or lesions noted Data 09/07/23 12:05 09/07/23 09:34 Micro: Microbiology 09/05/23 18:40 Gram Stain - Final Arm - Right Anaerobic Culture - Preliminary Wound Culture - Preliminary A&P Assessment and plan (1) Surgical site infection: This 77-year-old woman was admitted from her care facility with redness and swelling about the upper arm. There is no jong drainage at the time of admission, but there was some oozing from the previous incision. Her surgical date was August 02 of this year. She was seen in the office by Dr. Martin in early August and again on August 20. At that time, she was placed on Bactrim as she was having some redness about the incision site. She was to be seen back, however, she came to the emergency department after having increased drainage. She was sent there by her primary care provider. She is being admitted for IV antibiotics. CT scan demonstrated no obvious abscess, so surgical intervention is not planned at this point. Ongoing IV antibiotics will be administered, and subsequent CT may be of value to further assess whether there has been development of a true abscess. Today, the patient has improved somewhat on IV antibiotics. We will continue to observe, and should she worsen or develop symptoms of sepsis, this would require surgical intervention. We would leave the plate in place, and the surgical intervention would be in the form of incision and drainage with irrigation. (2) Closed fracture of humerus, shaft: No x-rays will be obtained. Qualifiers: Encounter type: initial encounter Fracture morphology: other fracture Laterality: right Qualified Code(s): S42.391A - Other fracture of shaft of right humerus, initial encounter for closed fracture (3) Cellulitis: Qualifiers: Laterality: right Site of cellulitis: extremity Site of cellulitis of extremity: upper extremity Qualified Code(s): L03.113 - Cellulitis of right upper limb Coding Level of Care Code Acute Code for [facility] Fwd Diagnoses Surgical site infection T81.49XA Other closed fracture of shaft of right humerus, initial encounter S42.391A Encounter type: initial encounter Fracture morphology: other fracture Laterality: right Cellulitis L03.113 Laterality: right Site of cellulitis: extremity Site of cellulitis of extremity: upper extremity
[2023-09-07 16:47] LABS: Glucose Point of Care 175 mg/dL (70-110)
[2023-09-07] MEDS: enoxaparin 40 mg/0.4 mL Syringe SUBCUT (18:05)
[2023-09-07 20:24] LABS: Glucose Point of Care 117 mg/dL (70-110)
[2023-09-07] MEDS: atorvastatin 40 mg Tablet 20 MG PO (20:26)
[2023-09-08] VITALS (14 sets, daily range): BP systolic 119–162; BP diastolic 53–81; PULSE 64–108; RESP 16–19; TEMP 36.4–36.9; O2SAT 90–96
[2023-09-08] MEDS: vancomycin 1,250 MG/250 ML PIGGYBACK 250 MG IV (00:15)
[2023-09-08] MEDS: piperacillin-tazobactam 3.375 GM in sodium chloride 0.9% (plus) 50 ML IV ×3 (01:21→17:56)
[2023-09-08 03:35] LABS: Basophils % 0.5 %; Eosinophils # 0.4 10^3/uL (0.0-0.8); Eosinophils % 7.1 %; Hematocrit 26.8 % (36-47); Lymphocytes # 1.1 10^3/uL (0.8-4.8); Lymphocytes % 17.2 %; Mean Corpuscular HGB Conc 28.4 g/dL (30-55); Mean Corpuscular Hemoglobin 26.2 pg (27-33); Mean Corpuscular Volume 92.4 fl (85-98); Mean Platelet Volume 8.4 fL (7.4-10.4); Monocytes # 0.5 10^3/uL (0.2-0.9); Monocytes % 8.1 %; Neutrophils # 4.11 10^3/uL (1.8-7.7); Neutrophils % 66.6 %; Nucleated Red Blood Cells % 0 %; Platelet Count 188 10^3/cmm (157-399); Red Cell Distribution Width 16.9 % (12.1-15.1); White Blood Count 6.17 10^3/uL (3.29-11.43)
[2023-09-08 04:04] LABS: Procalcitonin 0.12 ng/mL (0-0.5)
[2023-09-08 04:12] LABS: Alanine Aminotransferase 28 U/L (0-33); Albumin Level 3.1 g/dL (3.5-5.2); Alkaline Phosphatase 191 U/L (35-105); Anion Gap 17.5 (5-19); Aspartate Amino Transferase 28 U/L (0-32); Blood Urea Nitrogen 15 mg/dL (8-23); C Reactive Protein 85.2 mg/L (0.0-4.9); Carbon Dioxide 22 mmol/L (22-29); Chloride 106 mmol/L (98-107); Creatinine Clr Calc Pharmacy 47.6898; Globulin 3.2 g/dL (1.3-4.6); Glucose 128 mg/dL (65-115); Magnesium 1.8 mg/dL (1.7-2.3); Osmolality Calculated 294 mOsm/kg (285-295); Phosphorus 3.1 mg/dL (2.5-4.5); Potassium 4.5 mmol/L (3.5-5.1); Sodium 141 mmol/L (136-145); Total Bilirubin 0.6 mg/dL (0.15-1.2); Total Protein 6.3 g/dL (6.6-8.7)
[2023-09-08 06:31] LABS: Glucose Point of Care 157 mg/dL (70-110)
[2023-09-08] MEDS: oxyCODONE 5 mg IR Tab/Cap PO ×2 (06:33→21:44)
[2023-09-08] MEDS: insulin lispro 100 unit/1 mL SUBCUT ×2 (08:38→17:57)
[2023-09-08] MEDS: duloxetine 30 mg Capsule PO (08:39)
[2023-09-08] MEDS: pantoprazole DR 40 mg Tablet PO (08:39)
[2023-09-08] MEDS: duloxetine 60 mg Capsule PO (08:39)
[2023-09-08] MEDS: aspirin 81 mg EC Tablet PO (08:39)
[2023-09-08 12:00] LABS: Glucose Point of Care 130 mg/dL (70-110)
[2023-09-08 12:05] LABS: Hematocrit 29.7 % (36-47)
[2023-09-08] MEDS: sucralfate 1 gm Tablet PO ×3 (12:41→21:43)
--- NOTE | 2023-09-08 12:41 | CTR_ITS ---
PROCEDURE INFORMATION: Exam: CT Head Without Contrast Exam date and time: 09/08/2023 1:23 PM Age: 78 years old Clinical indication: Altered mental status/memory loss; Additional info: AMS TECHNIQUE: Imaging protocol: Computed tomography of the head without contrast. Radiation optimization: All CT scans at this facility use at least one of these dose optimization techniques: automated exposure control; mA and/or kV adjustment per patient size (includes targeted exams where dose is matched to clinical indication); or iterative reconstruction. COMPARISON: CT head wo con* [id number] 06/20/2019 8:44 AM RADIATION DOSE METRICS: Total DLP (mGy-cm): 1061.38 FINDINGS: Brain: Periventricular white matter hypodensities consistent with chronic ischemic small vessel disease. No recent infarct, intracranial bleed or mass effect. Cerebral ventricles: No ventriculomegaly. Paranasal sinuses: Visualized sinuses are unremarkable. No fluid levels. Mastoid air cells: Visualized mastoid air cells are well aerated. Orbital cavities: Bilateral cataract surgery. Bones: Unremarkable. No acute fracture. Soft tissues: Unremarkable. CT/CT head wo con* [id number] IMPRESSION: No large territorial infarct or intracranial bleed.
--- NOTE | 2023-09-08 13:38 | P.PN_ITS ---
Subjective 2 Subjective: Patient was seen this morning, she is alert to person, to place, not to time she is a bit confused this morning, she tells me that she is tired, she is just received her pain medications, denies any fevers, no chills, she does report weakness and numbness of her right hand, right arm, no weakness detected in the right lower extremity, no facial droop no slurring of her words, Vitals/I&O/Wt Last Vital Signs Temp 97.6 F 09/08/23 08:00 Pulse 108 H 09/08/23 08:00 Resp 18 09/08/23 08:00 BP 149/53 09/08/23 08:00 Pulse Ox 91 09/08/23 08:00 O2 Del Method Nasal Cannula 09/08/23 08:00 O2 Flow Rate 2 09/08/23 07:57 09/07/23 09/08/23 09/08/23 22:59 06:59 14:59 Intake Total 350 / 1520 400 / 1920 480 / 480 Output Total 200 / 200 Balance 350 / 1520 400 / 1920 280 / 280 Weight last 48 hrs Weight 78.789 kg Weight 79.197 kg Physical Exam 2 Const: COMMON NORMALS: no acute distress ORIENTATION/CONSCIOUSNESS: Yes awake, Yes oriented to person, Yes oriented to place and Yes confused; not oriented to time Resp: COMMON NORMALS: normal respiratory effort, No retractions, No use of accessory muscles and clear to auscultation bilaterally AUSCULTATION: clear to auscultation bilaterally Cardio: COMMON NORMALS: regular rate, regular rhythm, S1 normal heart sound present and S2 normal heart sound present RATE: regular rate RHYTHM: r egular rhythm HEART SOUNDS: S1 normal heart sound present and S2 normal heart sound present GI: COMMON NORMALS: Normal to inspection, nondistended, normoactive bowel sounds present and non-tender Extremity: COMMON NORMALS: no pedal edema Neuro: SENSORIUM/ORIENTATION: Yes oriented to person, Yes oriented to place and No oriented to time Psych: COMMON NORMALS: mental status grossly normal Skin: NARRATIVE SKIN EXAM: Surgical site, has abdominal pad in place Right lower extremity examination is swelling of hand ? She is able to move her fingers, even able to squeeze my hand, does have complaints of decreased strength, and numbness of her hand, numbness of her forearm Data 09/08/23 11:57 09/08/23 02:23 Micro: Microbiology 09/05/23 18:40 Gram Stain - Final Arm - Right Anaerobic Culture - Preliminary Wound Culture - Final 09/07/23 13:25 Anaerobic Culture - Preliminary Arm - Abscess 09/07/23 13:25 Gram Stain - Final Other Source Body Fluid Culture - Preliminary A&P Assessment and plan (1) Cellulitis: Qualifiers: Laterality: right Site of cellulitis: extremity Site of cellulitis of extremity: upper extremity Qualified Code(s): L03.113 - Cellulitis of right upper limb (2) Closed fracture of humerus, shaft: Qualifiers: Encounter type: initial encounter Fracture morphology: other fracture Laterality: right Qualified Code(s): S42.391A - Other fracture of shaft of right humerus, initial encounter for closed fracture (3) Surgical site infection: (4) Rash: (5) Encephalopathy acute: Plan Acute encephalopathy, ?Neurochecks -Aspiration precautions ?NIH stroke scale Surgical site infection, cellulitis,status post open reduction internal fixation right humeral shaft fracture CT with IV contrast of surgical site CCESSION #: [id number] [place] [id number] IMPRESSION: 1. Small suspected developing abscess or phlegmon in the anterior RIGHT upper arm in the subcutaneous soft tissues extending to the skin. Recommend correlation for overlying cellulitis. 2. RIGHT upper extremity arteries appear patent. 3. If concern for venous SVT or DVT this would be better evaluated with ultrasound. 4. Anterior RIGHT acetabular fracture with callus formation has a chronic appearance. Chronic appearing RIGHT inferior pubic ramus fracture with callus formation. 5. No other new findings. ? Plan ? Will obtain cultures from drainage site, consult IR for ultrasound-guided aspiration ? Follow blood cultures ? Venous ultrasound no DVT ? IV vancomycin ? IV Zosyn ? Monitor clinical status ? Orthopedic service has been consulted Radial nerve palsy, right upper extremity -Complaints of diminished strength, pain, numbness -Monitor -Conservative interventions Rash bilateral lower extremities, nonpruritic, looks like a nodule and purpura ? Maculopapular, nonblanching ? KATLYN panel ? IgA ? Will monitor Type 2 diabetes mellitus, moderate dose sliding scale Acute on chronic anemia, ? Hemoglobin 8.7 -Monitor Acute kidney injury ? Creatinine 1.3 ? Monitor Patient requires hospitalization ? Full code ? Lovenox for DVT prophylaxis ? Protonix for GI prophylaxis Plan for today follow cultures, has episodes of confusion will order CT of the head, PT OT, continue IV antibiotics Attestations 2 Medical Necessity Statement*: Patient requires hospitalization for surgical site infection, acute encephalopathy, radial nerve palsy, encephalopathy Diagnoses Cellulitis L03.113 Laterality: right Site of cellulitis: extremity Site of cellulitis of extremity: upper extremity Other closed fracture of shaft of right humerus, initial encounter S42.391A Encounter type: initial encounter Fracture morphology: other fracture Laterality: right Surgical site infection T81.49XA Rash R21 Encephalopathy acute G93.40
--- NOTE | 2023-09-08 14:29 | P.PN_ITS ---
Subjective 2 Subjective: Patient is seen in her room. She is doing well, but she is frustrated that she cannot use her arm. Medications: Reviewed: Yes Vitals/I&O/Wt Last Vital Signs Temp 97.7 F 09/08/23 12:00 Pulse 72 09/08/23 12:00 Resp 18 09/08/23 12:00 BP 162/72 09/08/23 12:00 Pulse Ox 91 09/08/23 12:00 O2 Del Method Nasal Cannula 09/08/23 12:00 O2 Flow Rate 2 09/08/23 07:57 09/07/23 09/08/23 09/08/23 22:59 06:59 14:59 Intake Total 350 / 1520 400 / 1920 720 / 720 Output Total 350 / 350 Balance 350 / 1520 400 / 1920 370 / 370 Weight last 48 hrs Weight 173 lb 11.2 oz Weight 174 lb 9.6 oz Physical Exam 2 Const: COMMON NORMALS: no acute distress, average body habitus and alert G ENERAL APPEARANCE: cooperative and comfortable NUTRITIONAL APPEARANCE: o verweight ORIENTATION/CONSCIOUSNESS: Yes awake HENMT: COMMON NORMALS: normocephalic and atraumatic HEAD & SCALP: n ormocephalic and atraumatic Eye: GENERAL EYE: appearance normal, both eyes and all related structures Chest: COMMONS NORMALS: normal inspection of the chest Resp: COMMON NORMALS: normal respiratory effort EFFORT & INSPECTION: Yes able to speak in complete sentences and Yes symmetric chest movement Extremity: RIGHT UPPER EXTREMITY: Yes upper arm (Remainder currently unchanged, distally, redness resolved) Right upper arm: Yes inspection (Swelling decreased) and Yes neurovascular exam (Radial nerve palsy) Neuro: SENSORIUM/ORIENTATION: Yes alert Psych: APPEARANCE: Yes grossly normal ATTITUDE: Yes calm and Yes engaged ATTENTION/CONCENTRATION: Yes attention grossly intact Skin: COMMON NORMALS: no rashes or lesions noted GENERAL SKIN EXAM: no rashes or lesions noted Data 09/08/23 11:57 09/08/23 02:23 Micro: Microbiology 09/05/23 18:40 Gram Stain - Final Arm - Right Anaerobic Culture - Preliminary Wound Culture - Final 09/07/23 13:25 Anaerobic Culture - Preliminary Arm - Abscess 09/07/23 13:25 Gram Stain - Final Other Source Body Fluid Culture - Preliminary A&P Assessment and plan (1) Surgical site infection: This 77-year-old woman was admitted from her care facility with redness and swelling about the upper arm. There is no jong drainage at the time of admission, but there was some oozing from the previous incision. Her surgical date was August 02 of this year. She was seen in the office by Dr. Martin in early August and again on August 20. At that time, she was placed on Bactrim as she was having some redness about the incision site. She was to be seen back, however, she came to the emergency department after having increased drainage. She was sent there by her primary care provider. She is being admitted for IV antibiotics. CT scan demonstrated no obvious abscess, so surgical intervention is not planned at this point. Ongoing IV antibiotics will be administered, and subsequent CT may be of value to further assess whether there has been development of a true abscess. We are awaiting cultures, and we will see whether or not this further declares itself. I will discuss with Dr. Martin further treatment plan. (2) Closed fracture of humerus, shaft: No x-rays will be obtained. Qualifiers: Encounter type: initial encounter Fracture morphology: other fracture Laterality: right Qualified Code(s): S42.391A - Other fracture of shaft of right humerus, initial encounter for closed fracture (3) Cellulitis: Qualifiers: Laterality: right Site of cellulitis: extremity Site of cellulitis of extremity: upper extremity Qualified Code(s): L03.113 - Cellulitis of right upper limb Attestations 2 Medical Necessity Statement*: Per hospitalist team Coding Level of Care Code Acute Code for [facility] Fwd Diagnoses Surgical site infection T81.49XA Other closed fracture of shaft of right humerus, initial encounter S42.391A Encounter type: initial encounter Fracture morphology: other fracture Laterality: right Cellulitis L03.113 Laterality: right Site of cellulitis: extremity Site of cellulitis of extremity: upper extremity
[2023-09-08 17:06] LABS: Glucose Point of Care 156 mg/dL (70-110)
[2023-09-08] MEDS: enoxaparin 40 mg/0.4 mL Syringe SUBCUT (17:57)
[2023-09-08] MEDS: pantoprazole 40 mg SDV IVP (17:57)
[2023-09-08 21:07] LABS: Glucose Point of Care 138 mg/dL (70-110)
[2023-09-08] MEDS: ALPRAZolam 0.5 mg Tablet PO (21:43)
[2023-09-08] MEDS: atorvastatin 40 mg Tablet 20 MG PO (21:43)
[2023-09-09] VITALS (15 sets, daily range): BP systolic 105–158; BP diastolic 51–78; PULSE 60–69; RESP 16–19; TEMP 36.4–36.7; O2SAT 90–99
[2023-09-09 00:46] LABS: Vancomycin Trough 18.4 ug/mL (10-15)
[2023-09-09] MEDS: morphine 4 mg/mL SDV 1 mL 2 MG IVP ×4 (01:16→21:16)
[2023-09-09] MEDS: vancomycin 1,250 MG/250 ML PIGGYBACK 250 MG IV (01:17)
[2023-09-09] MEDS: piperacillin-tazobactam 3.375 GM in sodium chloride 0.9% (plus) 50 ML IV ×3 (02:26→18:13)
[2023-09-09] MEDS: oxyCODONE 5 mg IR Tab/Cap PO (03:32)
[2023-09-09 04:17] LABS: Basophils % 0.6 %; Eosinophils # 0.4 10^3/uL (0.0-0.8); Eosinophils % 6.2 %; Hematocrit 26.1 % (36-47); Lymphocytes # 1.3 10^3/uL (0.8-4.8); Lymphocytes % 19.3 %; Mean Corpuscular HGB Conc 29.1 g/dL (30-55); Mean Corpuscular Hemoglobin 26.4 pg (27-33); Mean Corpuscular Volume 90.6 fl (85-98); Mean Platelet Volume 8.2 fL (7.4-10.4); Monocytes # 0.8 10^3/uL (0.2-0.9); Monocytes % 11.2 %; Neutrophils # 4.25 10^3/uL (1.8-7.7); Neutrophils % 61.5 %; Nucleated Red Blood Cells % 0.3 %; Platelet Count 166 10^3/cmm (157-399); Red Blood Count 2.88 10^6/uL (3.85-5.65); Red Cell Distribution Width 16.8 % (12.1-15.1)
[2023-09-09 04:34] LABS: Alanine Aminotransferase 27 U/L (0-33); Albumin Level 3.2 g/dL (3.5-5.2); Alkaline Phosphatase 200 U/L (35-105); Anion Gap 15.6 (5-19); Aspartate Amino Transferase 28 U/L (0-32); Blood Urea Nitrogen 13 mg/dL (8-23); C Reactive Protein 69.1 mg/L (0.0-4.9); Calcium 9.1 mg/dL (8.5-10.5); Carbon Dioxide 24 mmol/L (22-29); Chloride 103 mmol/L (98-107); Creatinine Clr Calc Pharmacy 46.3823; Globulin 3.8 g/dL (1.3-4.6); Glucose 135 mg/dL (65-115); Magnesium 1.7 mg/dL (1.7-2.3); Osmolality Calculated 288 mOsm/kg (285-295); Phosphorus 2.7 mg/dL (2.5-4.5); Potassium 4.6 mmol/L (3.5-5.1); Sodium 138 mmol/L (136-145); Total Bilirubin 0.7 mg/dL (0.15-1.2)
[2023-09-09 04:41] LABS: Procalcitonin 0.11 ng/mL (0-0.5)
[2023-09-09] MEDS: pantoprazole 40 mg SDV IVP ×2 (05:59→18:13)
[2023-09-09] MEDS: sucralfate 1 gm Tablet PO ×4 (05:59→21:15)
[2023-09-09 06:24] LABS: Glucose Point of Care 123 mg/dL (70-110)
[2023-09-09] MEDS: duloxetine 30 mg Capsule PO (09:01)
[2023-09-09] MEDS: duloxetine 60 mg Capsule PO (09:01)
[2023-09-09] MEDS: aspirin 81 mg EC Tablet PO (09:01)
[2023-09-09 11:34] LABS: Glucose Point of Care 232 mg/dL (70-110)
[2023-09-09] MEDS: insulin lispro 100 unit/1 mL SUBCUT ×2 (12:31→18:14)
--- NOTE | 2023-09-09 14:27 | P.PN_ITS ---
Subjective 2 Subjective: Patient was seen this morning, she is sitting up in a chair she is much more alert awake to person, to place, to time, following all commands, denies any fevers, chills, no cough does complain of pain along her right arm, she tells me that the numbness and the weakness of her right hand is improving, no facial droop no slurring of words, has good strength in bilateral lower extremities, strength of right upper extremity at the level shoulder is more limited by pain, strength of right hand, is improved compared to yesterday has good coordination, has swelling, testing is limited by severe pain with range of motion, complains of numbness throughout hand, forearm Vitals/I&O/Wt Last Vital Signs Temp 98.0 F 09/09/23 12:00 Pulse 69 09/09/23 12:00 Resp 16 09/09/23 12:00 BP 105/64 09/09/23 12:00 Pulse Ox 90 09/09/23 12:00 O2 Del Method Room Air 09/09/23 12:00 O2 Flow Rate 1 09/09/23 08:35 09/08/23 09/09/23 09/09/23 22:59 06:59 14:59 Intake Total 410 / 1180 250 / 1430 530 / 530 Output Total 250 / 600 200 / 200 Balance 160 / 580 250 / 830 330 / 330 Weight last 48 hrs Weight 74.871 kg Weight 78.789 kg Physical Exam 2 Const: COMMON NORMALS: no acute distress and patient oriented x3 Resp: COMMON NORMALS: normal respiratory effort, No retractions, No use of accessory muscles and clear to auscultation bilaterally AUSCULTATION: clear to auscultation bilaterally Cardio: COMMON NORMALS: regular rate, regular rhythm, S1 normal heart sound present and S2 normal heart sound present RATE: regular rate RHYTHM: r egular rhythm HEART SOUNDS: S1 normal heart sound present and S2 normal heart sound present GI: COMMON NORMALS: Normal to inspection, nondistended, normoactive bowel sounds present and non-tender Extremity: COMMON NORMALS: no pedal edema Neuro: COMMON NORMALS: patient oriented x3 Psych: COMMON NORMALS: mental status grossly normal Data 09/09/23 03:24 09/09/23 03:24 Micro: Microbiology 09/05/23 18:40 Gram Stain - Final Arm - Right Anaerobic Culture - Preliminary Wound Culture - Final 09/07/23 13:25 Anaerobic Culture - Preliminary Arm - Abscess 09/07/23 13:25 Gram Stain - Final Other Source Body Fluid Culture - Preliminary Coag positive Staphylococcus A&P Assessment and plan (1) Cellulitis: Qualifiers: Laterality: right Site of cellulitis: extremity Site of cellulitis of extremity: upper extremity Qualified Code(s): L03.113 - Cellulitis of right upper limb (2) Closed fracture of humerus, shaft: Qualifiers: Encounter type: initial encounter Fracture morphology: other fracture Laterality: right Qualified Code(s): S42.391A - Other fracture of shaft of right humerus, initial encounter for closed fracture (3) Surgical site infection: (4) Rash: (5) Encephalopathy acute: Plan Acute encephalopathy, resolving ? CT head within normal limits ?Neurochecks -Aspiration precautions ?NIH stroke scale Surgical site infection, cellulitis,status post open reduction internal fixation right humeral shaft fracture CT with IV contrast of surgical site CCESSION #: [id number] [place] [id number] IMPRESSION: 1. Small suspected developing abscess or phlegmon in the anterior RIGHT upper arm in the subcutaneous soft tissues extending to the skin. Recommend correlation for overlying cellulitis. 2. RIGHT upper extremity arteries appear patent. 3. If concern for venous SVT or DVT this would be better evaluated with ultrasound. 4. Anterior RIGHT acetabular fracture with callus formation has a chronic appearance. Chronic appearing RIGHT inferior pubic ramus fracture with callus formation. 5. No other new findings. ? Plan -IR drainage cultures show coagulase positive Staphylococcus ? Follow blood cultures ? Venous ultrasound no DVT ? IV vancomycin ? IV Zosyn ? Monitor clinical status ? Orthopedic service has been consulted Radial nerve palsy, right upper extremity -Complaints of diminished strength, pain, numbness -Monitor -Conservative interventions Rash bilateral lower extremities, nonpruritic, looks like a nodule and purpura ? Maculopapular, nonblanching ? KATLYN panel ? IgA elevated ? Will monitor Type 2 diabetes mellitus, moderate dose sliding scale Acute on chronic anemia, ? Hemoglobin 7.6 -Monitor Acute kidney injury ? Creatinine 1.3 ? Monitor Patient requires hospitalization ? Full code ? Lovenox for DVT prophylaxis ? Protonix for GI prophylaxis Plan for today continue to monitor cultures, monitor clinical status, continue IV antibiotics, Attestations 2 Medical Necessity Statement*: Patient requires hospitalization for surgical site infection Diagnoses Cellulitis L03.113 Laterality: right Site of cellulitis: extremity Site of cellulitis of extremity: upper extremity Other closed fracture of shaft of right humerus, initial encounter S42.391A Encounter type: initial encounter Fracture morphology: other fracture Laterality: right Surgical site infection T81.49XA Rash R21 Encephalopathy acute G93.40
--- NOTE | 2023-09-09 15:33 | P.PN_ITS ---
Subjective 2 Subjective: Patient is seen in her room. She is much more awake and answered today. She is responding appropriately. She sat up in a chair as well. I discussed with her further the plan for further antibiotic treatment for the appropriate organism. At this point, she will require revision of the hardware in some form, and having this infection is much under control as possible would be a better plan. Since she is continuing to improve, we will continue to wait to change the hardware. Medications: Reviewed: Yes Vitals/I&O/Wt Last Vital Signs Temp 98.0 F 09/09/23 12:00 Pulse 69 09/09/23 12:00 Resp 16 09/09/23 12:00 BP 105/64 09/09/23 12:00 Pulse Ox 90 09/09/23 12:00 O2 Del Method Room Air 09/09/23 12:00 O2 Flow Rate 1 09/09/23 08:35 09/09/23 09/09/23 09/09/23 06:59 14:59 22:59 Intake Total 250 / 1430 530 / 530 Output Total 200 / 200 Balance 250 / 830 330 / 330 Weight last 48 hrs Weight 165 lb 1 oz Weight 173 lb 11.2 oz Physical Exam 2 Const: COMMON NORMALS: no acute distress, average body habitus and alert G ENERAL APPEARANCE: cooperative and comfortable NUTRITIONAL APPEARANCE: o verweight ORIENTATION/CONSCIOUSNESS: Yes awake HENMT: COMMON NORMALS: normocephalic and atraumatic HEAD & SCALP: n ormocephalic and atraumatic Eye: GENERAL EYE: appearance normal, both eyes and all related structures Chest: COMMONS NORMALS: normal inspection of the chest Resp: COMMON NORMALS: normal respiratory effort EFFORT & INSPECTION: Yes able to speak in complete sentences and Yes symmetric chest movement Extremity: RIGHT UPPER EXTREMITY: Yes upper arm (Dressing is removed, drainage seems less) Right upper arm: Yes inspection (Less erythema), Yes palpation (Less pain to palpation) and Yes neurovascular exam (Radial palsy still present) Neuro: SENSORIUM/ORIENTATION: Yes alert Psych: APPEARANCE: Yes grossly normal ATTITUDE: Yes calm and Yes engaged ATTENTION/CONCENTRATION: Yes attention grossly intact Skin: COMMON NORMALS: no rashes or lesions noted GENERAL SKIN EXAM: no rashes or lesions noted Data 09/09/23 03:24 09/09/23 03:24 Micro: Microbiology 09/05/23 18:40 Gram Stain - Final Arm - Right Anaerobic Culture - Preliminary Wound Culture - Final 09/07/23 13:25 Anaerobic Culture - Preliminary Arm - Abscess 09/07/23 13:25 Gram Stain - Final Other Source Body Fluid Culture - Preliminary Coag positive Staphylococcus A&P Assessment and plan (1) Surgical site infection: This 77-year-old woman was admitted from her care facility with redness and swelling about the upper arm. There is no jong drainage at the time of admission, but there was some oozing from the previous incision. Her surgical date was August 02 of this year. She was seen in the office by Dr. Martin in early August and again on August 20. At that time, she was placed on Bactrim as she was having some redness about the incision site. She was to be seen back, however, she came to the emergency department after having increased drainage. She was sent there by her primary care provider. She was admitted for IV antibiotics. CT scan demonstrated no obvious abscess, so initially, she was given a IV antibiotic. The cellulitis cleared nicely, and she has an obvious collection at the superior aspect of her incision. New x-rays demonstrated that there is a screw that has completely backed out of the plate. Likely, this will require complete revision of her hardware. For this reason, ultrasound-guided aspiration was obtained, and at the present time, these cultures are demonstrating coag positive staph. There is some question of previous history of MRSA, however, this is not documented anywhere in her chart. We will await definitive cultures and get the patient on appropriate antibiotics before exchanging hardware. (2) Closed fracture of humerus, shaft: New x-rays were obtained, and these demonstrated proximal hardware failure. Qualifiers: Encounter type: initial encounter Fracture morphology: other fracture Laterality: right Qualified Code(s): S42.391A - Other fracture of shaft of right humerus, initial encounter for closed fracture (3) Cellulitis: Qualifiers: Laterality: right Site of cellulitis: extremity Site of cellulitis of extremity: upper extremity Qualified Code(s): L03.113 - Cellulitis of right upper limb Attestations 2 Medical Necessity Statement*: Per hospitalist team Coding Level of Care Code Acute Code for [facility] Fwd Diagnoses Surgical site infection T81.49XA Other closed fracture of shaft of right humerus, initial encounter S42.391A Encounter type: initial encounter Fracture morphology: other fracture Laterality: right Cellulitis L03.113 Laterality: right Site of cellulitis: extremity Site of cellulitis of extremity: upper extremity
[2023-09-09] MEDS: enoxaparin 40 mg/0.4 mL Syringe SUBCUT (16:36)
[2023-09-09 17:02] LABS: Glucose Point of Care 207 mg/dL (70-110)
[2023-09-09 20:45] LABS: Glucose Point of Care 170 mg/dL (70-110)
[2023-09-09] MEDS: atorvastatin 40 mg Tablet 20 MG PO (21:14)
[2023-09-10] VITALS (10 sets, daily range): BP systolic 133–152; BP diastolic 56–75; PULSE 63–74; RESP 16–20; TEMP 36.4–36.7; O2SAT 90–97
[2023-09-10] MEDS: vancomycin 1,250 MG/250 ML PIGGYBACK 250 MG IV (00:04)
[2023-09-10] MEDS: piperacillin-tazobactam 3.375 GM in sodium chloride 0.9% (plus) 50 ML IV ×3 (01:25→17:02)
[2023-09-10] MEDS: pantoprazole 40 mg SDV IVP ×2 (05:37→17:02)
[2023-09-10] MEDS: morphine 4 mg/mL SDV 1 mL 2 MG IVP ×2 (05:50→11:33)
[2023-09-10] MEDS: sucralfate 1 gm Tablet PO ×4 (06:13→20:30)
[2023-09-10 06:30] LABS: Glucose Point of Care 178 mg/dL (70-110)
[2023-09-10] MEDS: insulin lispro 100 unit/1 mL SUBCUT ×3 (09:42→17:13)
[2023-09-10] MEDS: duloxetine 30 mg Capsule PO (09:43)
[2023-09-10] MEDS: aspirin 81 mg EC Tablet PO (09:43)
[2023-09-10] MEDS: duloxetine 60 mg Capsule PO (09:43)
--- NOTE | 2023-09-10 10:03 | PC.SOCIAL ---
IMM Update pg 2 of IMM Updated and reviewed w/ patient. Copy provided and copy dated, initialed and placed in chart.
--- NOTE | 2023-09-10 10:56 | PC.NURSE ---
Pt refused blood draw. This RN educates pt and pt consents to having blood drawn. Notified lab.
[2023-09-10 11:16] LABS: Glucose Point of Care 210 mg/dL (70-110)
[2023-09-10] MEDS: oxyCODONE 5 mg IR Tab/Cap PO ×2 (11:32→17:02)
[2023-09-10 14:03] LABS: Hematocrit 28.1 % (36-47); Mean Corpuscular HGB Conc 28.8 g/dL (30-55); Mean Corpuscular Volume 90.4 fl (85-98); Mean Platelet Volume 8.6 fL (7.4-10.4); Platelet Count 250 10^3/cmm (157-399); Red Blood Count 3.11 10^6/uL (3.85-5.65); Red Cell Distribution Width 16.8 % (12.1-15.1); White Blood Count 7.92 10^3/uL (3.29-11.43)
[2023-09-10 14:22] LABS: Anion Gap 17.4 (5-19); Blood Urea Nitrogen 11 mg/dL (8-23); Calcium 9.1 mg/dL (8.5-10.5); Carbon Dioxide 22 mmol/L (22-29); Chloride 105 mmol/L (98-107); Creatinine Clr Calc Pharmacy 47.0182; Glucose 146 mg/dL (65-115); Osmolality Calculated 292 mOsm/kg (285-295); Potassium 4.4 mmol/L (3.5-5.1); Sodium 140 mmol/L (136-145)
[2023-09-10 14:48] LABS: Absolute Eosinophils 0.5 10^3/cmm (0.0-0.7); Absolute Segmented Neutrophil 4.8 10/cmm (1.6-7.1); Band Neutrophils Absolute 0.2 10^3/cmm (0.0-1.2); Eosinophils 6 %; Lymphocytes 14 %; Monocytes Absolute 0.9 10^3/cmm (0.1-0.6); Platelet Estimate Normal (Normal); Segmented Neutrophils 61 %; Total Cells Counted 100 (0-100)
--- NOTE | 2023-09-10 14:57 | P.PN_ITS ---
Subjective 2 Subjective: Patient is seen in her room. She is much more awake and answered today. She is responding appropriately. After discussion with hospitalist team today, as well as the slight change in appearance of her wound, we have elected to proceed with incision and drainage. This will then be packed open to allow further antibiotic treatment prior to possible hardware exchange. This is discussed with the patient and she is in agreement. Questions are answered for signing of the consent. Medications: Reviewed: Yes Vitals/I&O/Wt Last Vital Signs Temp 97.6 F 09/10/23 11:22 Pulse 63 09/10/23 11:22 Resp 18 09/10/23 11:32 BP 133/75 09/10/23 11:22 Pulse Ox 97 09/10/23 11:22 O2 Del Method Nasal Cannula 09/10/23 11:22 O2 Flow Rate 2 09/10/23 09:56 09/09/23 09/10/23 09/10/23 22:59 06:59 14:59 Intake Total 340 / 870 300 / 1170 410 / 410 Output Total 100 / 300 700 / 1000 400 / 400 Balance 240 / 570 -400 / 170 10 / 10 Weight last 48 hrs Weight 169 lb 11.2 oz Weight 165 lb 1 oz Physical Exam 2 Const: COMMON NORMALS: no acute distress, average body habitus and alert G ENERAL APPEARANCE: cooperative and comfortable NUTRITIONAL APPEARANCE: o verweight ORIENTATION/CONSCIOUSNESS: Yes awake HENMT: COMMON NORMALS: normocephalic and atraumatic HEAD & SCALP: n ormocephalic and atraumatic Eye: GENERAL EYE: appearance normal, both eyes and all related structures Chest: COMMONS NORMALS: normal inspection of the chest Resp: COMMON NORMALS: normal respiratory effort EFFORT & INSPECTION: Yes able to speak in complete sentences and Yes symmetric chest movement Extremity: RIGHT UPPER EXTREMITY: Yes upper arm (The patient's incision is along the anterior medial aspect of the arm) Right upper arm: Yes inspection (Drainage at the superior aspect of the incision), Yes palpation (Minimal discomfort) and Yes neurovascular exam (Radial palsy persists) Neuro: SENSORIUM/ORIENTATION: Yes alert Psych: APPEARANCE: Yes grossly normal ATTITUDE: Yes calm and Yes engaged ATTENTION/CONCENTRATION: Yes attention grossly intact Skin: COMMON NORMALS: no rashes or lesions noted GENERAL SKIN EXAM: no rashes or lesions noted Data 09/10/23 13:20 09/10/23 13:20 Micro: Microbiology 09/05/23 10:02 Blood Culture - Final Blood NO GROWTH AFTER 5 DAYS 09/05/23 10:08 Blood Culture - Final Blood NO GROWTH AFTER 5 DAYS 09/05/23 18:40 Gram Stain - Final Arm - Right Anaerobic Culture - Preliminary Wound Culture - Final 09/07/23 13:25 Anaerobic Culture - Preliminary Arm - Abscess 09/07/23 13:25 Gram Stain - Final Other Source Body Fluid Culture - Preliminary Coag positive Staphylococcus A&P Assessment and plan (1) Surgical site infection: This 77-year-old woman was admitted from her care facility with redness and swelling about the upper arm. There is no jong drainage at the time of admission, but there was some oozing from the previous incision. Her surgical date was August 02 of this year. She was seen in the office by Dr. Martin in early August and again on August 20. At that time, she was placed on Bactrim as she was having some redness about the incision site. She was to be seen back, however, she came to the emergency department after having increased drainage. She was sent there by her primary care provider. She was admitted for IV antibiotics. CT scan demonstrated no obvious abscess, so initially, she was given a IV antibiotic. The cellulitis cleared nicely, and she now has an obvious collection at the superior aspect of her incision. New x-rays demonstrated that there is a screw that has completely backed out of the plate. Likely, this will require complete revision of her hardware. Cultures continue to demonstrate coag positive Staphylococcus which has not been further characterized at the time of this note. There is some question of previous MRSA, however, there is no documentation for this. After discussion with the hospitalist team as well as the patient, we have elected to proceed with incision and drainage tomorrow. I will leave the wound open with packing. At this juncture, further decision can be made regarding a hardware revision. (2) Closed fracture of humerus, shaft: New x-rays were obtained, and these demonstrated proximal hardware failure. Qualifiers: Encounter type: initial encounter Fracture morphology: other fracture Laterality: right Qualified Code(s): S42.391A - Other fracture of shaft of right humerus, initial encounter for closed fracture (3) Cellulitis: Qualifiers: Laterality: right Site of cellulitis: extremity Site of cellulitis of extremity: upper extremity Qualified Code(s): L03.113 - Cellulitis of right upper limb Attestations 2 Medical Necessity Statement*: Per hospitalist team Coding Level of Care Code Acute Code for [facility] Fwd Diagnoses Surgical site infection T81.49XA Other closed fracture of shaft of right humerus, initial encounter S42.391A Encounter type: initial encounter Fracture morphology: other fracture Laterality: right Cellulitis L03.113 Laterality: right Site of cellulitis: extremity Site of cellulitis of extremity: upper extremity
[2023-09-10 16:06] LABS: Glucose Point of Care 146 mg/dL (70-110)
--- NOTE | 2023-09-10 16:59 | P.PN_ITS ---
Subjective 2 Subjective: Patient was seen this morning, she is alert to person, to place, to time she follows all commands, she complains of pain in her right shoulder, pain and increased drainage from her surgical site, Vitals/I&O/Wt Last Vital Signs Temp 97.7 F 09/10/23 16:37 Pulse 66 09/10/23 16:37 Resp 18 09/10/23 16:37 BP 138/62 09/10/23 16:37 Pulse Ox 94 09/10/23 16:37 O2 Del Method Nasal Cannula 09/10/23 16:37 O2 Flow Rate 2 09/10/23 09:56 09/10/23 09/10/23 09/10/23 06:59 14:59 22:59 Intake Total 300 / 1170 410 / 410 Output Total 700 / 1000 400 / 400 Balance -400 / 170 10 / 10 Weight last 48 hrs Weight 76.975 kg Weight 74.871 kg Physical Exam 2 Const: COMMON NORMALS: no acute distress and patient oriented x3 Resp: COMMON NORMALS: normal respiratory effort, No retractions, No use of accessory muscles and clear to auscultation bilaterally AUSCULTATION: clear to auscultation bilaterally Cardio: COMMON NORMALS: regular rate, regular rhythm, S1 normal heart sound present and S2 normal heart sound present RATE: regular rate RHYTHM: r egular rhythm HEART SOUNDS: S1 normal heart sound present and S2 normal heart sound present GI: COMMON NORMALS: Normal to inspection, nondistended, normoactive bowel sounds present and non-tender Extremity: COMMON NORMALS: no calf tenderness and no pedal edema Neuro: COMMON NORMALS: patient oriented x3 Psych: COMMON NORMALS: mental status grossly normal Skin: NARRATIVE SKIN EXAM: Examination, right shoulder, right arm, surgical site, at the superior portion of the surgical site there is purulent drainage, Data 09/10/23 13:20 09/10/23 13:20 Micro: Microbiology 09/07/23 13:25 Anaerobic Culture - Preliminary Arm - Abscess 09/05/23 18:40 Gram Stain - Final Arm - Right Anaerobic Culture - Preliminary Wound Culture - Final 09/07/23 13:25 Gram Stain - Final Other Source Body Fluid Culture - Final Methicillin Resis Staph Aureus 09/05/23 10:02 Blood Culture - Final Blood NO GROWTH AFTER 5 DAYS 09/05/23 10:08 Blood Culture - Final Blood NO GROWTH AFTER 5 DAYS A&P Assessment and plan (1) Cellulitis: Qualifiers: Laterality: right Site of cellulitis: extremity Site of cellulitis of extremity: upper extremity Qualified Code(s): L03.113 - Cellulitis of right upper limb (2) Closed fracture of humerus, shaft: Qualifiers: Encounter type: initial encounter Fracture morphology: other fracture Laterality: right Qualified Code(s): S42.391A - Other fracture of shaft of right humerus, initial encounter for closed fracture (3) Surgical site infection: (4) Rash: (5) Encephalopathy acute: Plan Acute encephalopathy, resolving ? CT head within normal limits ?Neurochecks -Aspiration precautions ?NIH stroke scale Surgical site infection, cellulitis,status post open reduction internal fixation right humeral shaft fracture CT with IV contrast of surgical site CCESSION #: [id number] CT/[place] [address] IMPRESSION: 1. Small suspected developing abscess or phlegmon in the anterior RIGHT upper arm in the subcutaneous soft tissues extending to the skin. Recommend correlation for overlying cellulitis. 2. RIGHT upper extremity arteries appear patent. 3. If concern for venous SVT or DVT this would be better evaluated with ultrasound. 4. Anterior RIGHT acetabular fracture with callus formation has a chronic appearance. Chronic appearing RIGHT inferior pubic ramus fracture with callus formation. 5. No other new findings. ? Plan -IR drainage cultures show coagulase positive Staphylococcus ? Follow blood cultures ? Venous ultrasound no DVT ? IV vancomycin ? IV Zosyn ? Monitor clinical status ? Orthopedic service has been consulted Radial nerve palsy, right upper extremity -Complaints of diminished strength, pain, numbness -Monitor -Conservative interventions Rash bilateral lower extremities, nonpruritic, looks like a nodule and purpura ? Maculopapular, nonblanching ? KATLYN panel ? IgA elevated ? Will monitor Type 2 diabetes mellitus, moderate dose sliding scale Acute on chronic anemia, ? Hemoglobin 7.6 -Monitor Acute kidney injury ? Creatinine 1.3 ? Monitor Patient requires hospitalization ? Full code ? Lovenox for DVT prophylaxis ? Protonix for GI prophylaxis Plan for today continue to monitor cultures, monitor clinical status, continue IV antibiotics, spoke to Dr. Black, plan on surgical intervention tomorrow cultures positive for MRSA Attestations 2 Medical Necessity Statement*: Patient requires hospitalization for surgical site infection concerns for MRSA infection will require surgical drainage tomorrow, n.p.o. midnight Diagnoses Cellulitis L03.113 Laterality: right Site of cellulitis: extremity Site of cellulitis of extremity: upper extremity Other closed fracture of shaft of right humerus, initial encounter S42.391A Encounter type: initial encounter Fracture morphology: other fracture Laterality: right Surgical site infection T81.49XA Rash R21 Encephalopathy acute G93.40
[2023-09-10] MEDS: enoxaparin 40 mg/0.4 mL Syringe SUBCUT (17:01)
--- NOTE | 2023-09-10 18:04 | PC.NURSE ---
Pt unable to sign consent for self. She does not remember speaking with surgeon when asked, even though this RN was present. Notified Dr. Black. Plan is to educate daughter, Michelle, for consent tomorrow.
[2023-09-10] MEDS: atorvastatin 40 mg Tablet 20 MG PO (20:30)
[2023-09-10 20:56] LABS: Glucose Point of Care 165 mg/dL (70-110)
[2023-09-11] VITALS (16 sets, daily range): BP systolic 124–163; BP diastolic 59–91; PULSE 63–104; RESP 16–20; TEMP 36.2–36.6; O2SAT 95–100
[2023-09-11] MEDS: vancomycin 1,250 MG/250 ML PIGGYBACK 250 MG IV (00:31)
[2023-09-11] MEDS: piperacillin-tazobactam 3.375 GM in sodium chloride 0.9% (plus) 50 ML IV (03:50)
--- NOTE | 2023-09-11 04:31 | P.PN_ITS ---
Subjective 2 Subjective: ID progress note cultures from aspirate showing MRSA. Worsening drainage from wound, continues to have persisting pain afebrile, no leukocytosis planned for surgical debridement and possible hardware exchange Medications: Reviewed: Yes Vitals/I&O/Wt Last Vital Signs Temp 97.6 F 09/11/23 04:00 Pulse 90 09/11/23 04:00 Resp 20 H 09/11/23 04:00 BP 161/74 09/11/23 04:00 Pulse Ox 97 09/11/23 04:00 O2 Del Method Nasal Cannula 09/10/23 16:37 O2 Flow Rate 2 09/10/23 20:38 09/10/23 09/10/23 09/11/23 14:59 22:59 06:59 Intake Total 410 / 410 847.083 / 1257.083 250 / 1507.083 Output Total 400 / 400 Balance 847.083 / 857.083 250 / 1107.083 Weight last 48 hrs Weight 76.521 kg Weight 76.975 kg Physical Exam 2 Narrative: General: No acute distress, AO x3 HEENT: PERRLA, pupils bilaterally equal and reactive, pallors not present Chest: Normal vesicular breath sounds, no added sounds, equal good air entry bilaterally CVS: S1-S2 regular, no murmurs, no tachycardia, no gallops, no rubs Abdomen: Soft, nontender, no organomegaly, bowel sounds present Neuro: No focal deficits, no facial deformity, AO x3, power 5/5 in all limbs EXT: erythema, warmth and tenderness over inferior end of incision over her right shoulder. Data 09/10/23 13:20 09/10/23 13:20 Micro: Microbiology 09/07/23 13:25 Anaerobic Culture - Preliminary Arm - Abscess 09/05/23 18:40 Gram Stain - Final Arm - Right Anaerobic Culture - Preliminary Wound Culture - Final 09/07/23 13:25 Gram Stain - Final Other Source Body Fluid Culture - Final Methicillin Resis Staph Aureus NAME: Deyanira Gonsales LOC: [facility] U #: [id number] AGE/SX: 78/F ROOM: [facility] R E09/05/[address]: Farshad Chawla MD : 1945 BED: 1 D IS: FAX #: STATUS: ADM IN TLOC: Spec #: [id number] Markie: 09/07/23-1325 Status: COMP Req #: [id number] Recd: 09/07/23-[address]: Farshad Chawla MD Src: Other Sour SpDesc: Ordered: Body FL Cult&GS Comments: Comment DR POOLE TO COLLECT,FLUID POCKETanterior humerus Procedure Result Verified Site Gram Stain Final 09/07/23-1742 Result RARE WHITE BLOOD CELLS NO ORGANISMS SEEN Body Fluid Culture Final 09/10/23-1555 Organism 1 Methicillin Resis Staph Aureus Growth FEW DAY 3 CRITICAL RESULT YES/NO: YES CRITICAL CALLED BY: JOSÉ TO AND READ BACK BY: CAMILLE DATE: 09/10/23 TIME: 155 MRSA M.I.C. RX --------- ------ * Ampicillin >8 R * Ciprofloxacin >2 R * Clindamycin >4 R * Erythromycin >4 R * Gentamicin <=4 S * Levofloxacin >4 R * Linezolid 4 S * Oxacillin >2 R * Penicillin >8 R * Rifampin <=1 S * Tetracycline <=4 S * Trimethoprim/Sulfamethoxazole <=0.5/9.5 S Vancomycin 2 S Daptomycin 1 S 09/05/23 10:02 Blood Culture - Final Blood NO GROWTH AFTER 5 DAYS 09/05/23 10:08 Blood Culture - Final Blood NO GROWTH AFTER 5 DAYS A&P Assessment and plan (1) Surgical site infection: (2) Arm abscess: (3) Fracture of proximal humerus: Qualifiers: Encounter type: initial encounter Fracture alignment: displaced F racture morphology: other fracture Fracture type: closed Laterality: right Qualified Code(s): S42.291A - Other displaced fracture of upper end of right humerus, initial encounter for closed fracture Plan 78-year-old lady with recent history of open reduction internal fixation of right humeral shaft fracture, postop course complicated by development of cellulitis and phlegmon over the arm CT of the arm showing developing abscess and phlegmon. Reviewed orthopedics evaluation. Planned OR debridement and possible hardware exchange. From 09/06: IR aspirate cx showing MRSA. Continue treatment with IV vancomycin , last trough at 18 D/c Zosyn Will follow with results of OR culture and intraop findings Attestations 2 Medical Necessity Statement*: per admitting Coding Level of Care Code Acute Code for Chg Fwd Moderate MDM includes number and complexity of problems actively addressed during encounter, amount and/or complexity of data reviewed/ordered and described risk of complication, morbidity or mortality of management as documented Diagnoses Surgical site infection T81.49XA Arm abscess L02.419 Other closed displaced fracture of proximal end of right humerus, initial encounter S42.291A Encounter type: initial encounter Fracture alignment: displaced Fracture morphology: other fracture Fracture type: closed Laterality: right
[2023-09-11] MEDS: sucralfate 1 gm Tablet PO ×3 (05:45→20:39)
[2023-09-11] MEDS: pantoprazole 40 mg SDV IVP ×2 (05:47→17:18)
[2023-09-11 06:17] LABS: Basophils # 0.1 10^3/uL (0.0-0.1); Basophils % 1.1 %; Eosinophils # 0.7 10^3/uL (0.0-0.8); Eosinophils % 7.6 %; Hematocrit 25.9 % (36-47); Lymphocytes # 1.7 10^3/uL (0.8-4.8); Mean Corpuscular HGB Conc 31.3 g/dL (30-55); Mean Corpuscular Volume 86.3 fl (85-98); Mean Platelet Volume 8.6 fL (7.4-10.4); Monocytes # 0.9 10^3/uL (0.2-0.9); Monocytes % 8.8 %; Neutrophils # 5.43 10^3/uL (1.8-7.7); Neutrophils % 55.7 %; Nucleated Red Blood Cells # 0.1 /100WBC; Nucleated Red Blood Cells % 0.7 %; Platelet Count 174 10^3/cmm (157-399); Red Cell Distribution Width 17.1 % (12.1-15.1); White Blood Count 9.76 10^3/uL (3.29-11.43)
[2023-09-11 06:20] LABS: Glucose Point of Care 162 mg/dL (70-110)
[2023-09-11 06:35] LABS: Anion Gap 15.3 (5-19); Blood Urea Nitrogen 10 mg/dL (8-23); Calcium 9.1 mg/dL (8.5-10.5); Carbon Dioxide 23 mmol/L (22-29); Chloride 106 mmol/L (98-107); Glucose 159 mg/dL (65-115); Osmolality Calculated 292 mOsm/kg (285-295); Potassium 4.3 mmol/L (3.5-5.1); Sodium 140 mmol/L (136-145)
[2023-09-11 07:50] LABS: Slide Review Slide Review Perform
[2023-09-11] MEDS: aspirin 81 mg EC Tablet PO (08:28)
[2023-09-11] MEDS: duloxetine 60 mg Capsule PO (08:28)
[2023-09-11] MEDS: oxyCODONE 5 mg IR Tab/Cap PO ×2 (08:28→17:18)
[2023-09-11] MEDS: duloxetine 30 mg Capsule PO (08:28)
--- NOTE | 2023-09-11 10:49 | PC.NURSE ---
Report given to Kaylen from Surgery. All questions answered. Notified about calling daughter for consent.
[2023-09-11 11:46] LABS: Glucose Point of Care 156 mg/dL (70-110)
--- NOTE | 2023-09-11 12:39 | P.ANESASSM_ITS ---
Pre-Anesthetic Assessment Height/Weight: Height 1.6 m Weight 76.521 kg Temp Pulse Resp BP Pulse Ox O2 Del Method O2 Flow Rate 97.7 F 63 17 163/74 97 Nasal Cannula 2 09/11/23 11:12 09/11/23 11:12 09/11/23 11:12 09/11/23 11:12 09/11/23 11:12 09/11/23 11:12 09/11/23 08:25 Operation Date: 09/11/23 12:40 Proposed Procedures p Incision & Drainage Upper Extremity(Right) - Judit Black MD Familial anesthetic complications: none Was Beta Solis taken within 24 hours: Yes Was Clonidine taken within 24 hours: N/A Last intake: Intake Last Liquid Date 09/10/23 Last Solid Date 09/10/23 Social No alcohol and No tobacco (h/o smoking) Exam alert, oriented x 3 and regular rate & rhythm Airway Submandibular: within normal limits Cervical ROM: within normal limits Mallampati: Class II Dentition: false Pulmonary Chronic Obstructive Pulmonary Disease and Sleep Apnea CV/HEM Hypertension Chronic Renal Insufficiency Metabolic Diabetes Mellitus, Hyperlipidemia and Morbid Obesity Neuropsych Anxiety and Depression Anesthetic Plan ASA status: 3 Anesthesia: General Medications/Allergies Home Medications Medication Instructions Recorded Confirmed Last Taken Type duloxetine 60 mg capsule,delayed 60 mg PO DAILY 06/20/19 09/05/23 09/05/23 History release sprinkle aspirin 81 mg tablet,delayed 81 mg PO DAILY #30 tabs 06/25/19 09/05/23 09/05/23 Rx release (Farzana Low Dose Aspirin) methocarbamol 500 mg tablet 500 mg PO QID PRN Muscle Spasms 06/25/19 09/05/23 09/02/23 Rx #14 tabs insulin glargine 100 unit/mL 55 unit SUBCUT QPM 12/12/21 09/05/23 09/04/23 History subcutaneous solution (Lantus U-100 Insulin) budesonide 180 mcg/actuation 1 inh inhalation BID #1 ea 12/20/21 09/05/23 09/05/23 Rx breath activated powder inhaler (Pulmicort Flexhaler) albuterol sulfate 2.5 mg/3 mL 2.5 mg inhalation Q6H PRN 07/16/23 09/05/23 07/24/23 History (0.083 %) solution for nebulization Shortness Of Breath atorvastatin 20 mg tablet 20 mg PO BEDTIME 07/16/23 09/05/23 09/04/23 History duloxetine 30 mg capsule,delayed 30 mg PO DAILY 07/16/23 09/05/23 09/05/23 History release insulin lispro 100 unit/mL See Rx Instructions .Route 07/16/23 09/05/23 09/05/23 History subcutaneous pen (Humalog KwikPen .COMPLEX PRN blood sugar (U-100) Insulin) metoprolol tartrate 25 mg tablet 25 mg PO BID 07/16/23 09/05/23 09/05/23 History pantoprazole 40 mg tablet,delayed 40 mg PO DAILY 07/16/23 09/05/23 09/05/23 History release umeclidinium 62.5 mcg-vilanterol 1 ea inhalation DAILY 07/16/23 09/05/23 09/05/23 History 25 mcg/actuation powdr for inhalation (Anoro Ellipta) furosemide 40 mg tablet 40 mg PO DAILY PRN Swelling #2 tabs 07/19/23 09/05/23 07/16/23 Rx acetaminophen 325 mg tablet 650 mg PO Q6H PRN pain/fever 08/03/23 09/05/23 08/31/23 History (Tylenol) alprazolam 0.5 mg tablet 0.5 mg PO BID PRN Anxiety 08/03/23 09/05/23 09/02/23 History bisacodyl 10 mg rectal suppository 10 mg MA DAILY PRN Constipation 08/03/23 09/05/23 Unknown History docusate sodium 100 mg capsule 100 mg PO DAILY 08/03/23 09/05/23 09/05/23 History (Colace) ketoconazole 2 % shampoo 1 applic topical .2XWEEKLY PRN 08/03/23 09/05/23 Unknown History lather magnesium hydroxide 400 mg/5 mL 30 ml PO DAILY PRN Constipation 08/03/23 09/05/23 Unknown History oral suspension (Milk of Magnesia) sodium phosphates 19 gram-7 118 ml MA DAILY PRN Constipation 08/03/23 09/05/23 Unknown History gram/118 mL enema (Fleet Enema) Wrist brace #1 ea 08/07/23 09/05/23 Unknown Rx tramadol 50 mg tablet 50 mg PO Q8H PRN pain #20 tabs 08/21/23 09/05/23 09/02/23 Rx amino acids-protein hydrolysate 15 1 ea PO DAILY 09/05/23 09/05/23 09/05/23 History gram-101 kcal/30 mL oral liquid diphenhydramine HCl 25 mg capsule 25 mg PO DAILY PRN Allergic 09/05/23 09/05/23 09/01/23 History (Benadryl) Reaction hydrocortisone 1 % topical cream 1 applic topical QID PRN RASH/ITCH 09/05/23 09/05/23 Unknown History lactobacillus combination no.4 3 3,000 mmu cells PO DAILY PRN WHILE 09/05/23 09/05/23 Unknown History billion cell capsule (Probiotic) ON ANTIBIOTICS linezolid 600 mg tablet 600 mg PO BID 09/05/23 09/05/23 09/05/23 History nystatin 100,000 unit/gram topical 1 applic topical BID PRN REDNESS 09/05/23 09/05/23 Unknown History powder polyethylene glycol 3350 17 See Rx Instructions .Route .COMPLEX 09/05/23 09/05/23 09/05/23 History gram/dose oral powder (Miralax) Allergies Allergy/AdvReac Type Severity Reaction Status Date / Time acetaminophen [From Vicodin] Allergy ADR-Confusi Verified 08/21/23 14:10 on cephalexin Allergy ALGY-Hives Verified 08/21/23 14:10 fluticasone Allergy Unknown Verified 08/21/23 14:10 [From Advair Diskus] hydrocodone [From Vicodin] Allergy ADR-Confusi Verified 08/21/23 14:10 on nitrofurantoin Allergy ALGY-Hives Verified 08/21/23 14:10 [From Macrobid] salmeterol Allergy Unknown Verified 08/21/23 14:10 [From Advair Diskus] Current Medications Generic Name Dose Route Start Last Admin Trade Name Freq PRN Reason Stop Dose Admin Alprazolam 0.5 mg 09/05/23 16:48 09/08/23 21:43 Alprazolam 0.5 Mg Tablet PO 0.5 mg BID PRN Administration Anxiety Aspirin 81 mg 09/06/23 09:00 09/11/23 08:28 Aspirin 81 Mg Ec Tablet PO 81 mg DAILY KARI Administration Atorvastatin Calcium 20 mg 09/05/23 21:00 09/10/23 20:30 Atorvastatin 40 Mg Tablet PO 20 mg BEDTIME KARI Administration Duloxetine HCl 30 mg 09/06/23 09:00 09/11/23 08:28 Duloxetine 30 Mg Capsule PO 30 mg DAILY KARI Administration Duloxetine HCl 60 mg 09/06/23 09:00 09/11/23 08:28 Duloxetine 60 Mg Capsule PO 60 mg DAILY KARI Administration Enoxaparin Sodium 40 mg 09/05/23 16:48 09/10/23 17:01 Enoxaparin 40 Mg/0.4 Ml Syringe SUBCUT 40 mg Q24H KARI Administration Vancomycin/PEG/NADA/Lysine/Water 1,250 mg in 250 mls @ 250 mls/hr 09/06/23 01:00 09/11/23 01:48 Vancocin IV Infused Q24H KARI Infusion Insulin Human Lispro 0 unit 09/05/23 18:00 09/11/23 08:30 Insulin Lispro 100 Unit/1 Ml SUBCUT Not Given TIDWM [facility] Protocol Oxycodone HCl 5 mg 09/06/23 20:39 09/11/23 08:28 Oxycodone 5 Mg Ir Tab/Cap PO 5 mg Q4H PRN Administration MODERATE PAIN Pantoprazole Sodium 40 mg 09/08/23 18:00 09/11/23 05:47 Pantoprazole 40 Mg Sdv IVP 40 mg Q12H KARI Administration Sucralfate 1 gm 09/08/23 11:00 09/11/23 05:45 Sucralfate 1 Gm Tablet PO 1 gm AC&BEDTIME KARI Administration PFSH Anesthesia Medical History Hypertension Obstructive sleep apnea intolerant of cpap Coronary artery disease CKD (chronic kidney disease) stage 3, GFR 30-59 ml/min Pneumonia Stroke Coffee ground emesis 2021 Nephrolithiasis Peripheral neuropathy Depression Diabetes mellitus type 2 in obese COPD (chronic obstructive pulmonary disease) Chronically uses 2 L per nasal cannula Surgical History History of ankle surgery History of cataract surgery History of bladder surgery History of carpal tunnel surgery History of shoulder surgery History of appendectomy Hx of CABG 2004 Family History Other Dementia Social History Smoking and tobacco/nicotine status: former use of tobacco/nicotine Quit status (tobacco/nicotine): has quit using Year quit tobacco: 12/2022 Alcohol intake: never Substance/Drug Use: never Data Anesthesia 09/11/23 06:04 09/11/23 06:04 Short CBC 09/10/23 09/11/23 Range/Units 13:20 06:04 WBC 7.92 9.76 (3.29-11.43) 10^3/uL Hgb 8.10 L 8.10 L (11.27-16.99) g/dL Hct 28.1 L 25.9 L (36-47) % MCV 90.4 86.3 (85-98) fl Plt Count 250 174 D (157-399) 10^3/cmm Neut % (Auto) 55.7 % Neut # (Auto) 5.43 (1.8-7.7) 10^3/uL BMP 09/10/23 09/11/23 13:20 06:04 Sodium 140 140 Potassium 4.4 4.3 Chloride 105 106 Carbon Dioxide 22 23 BUN 11 10 Creatinine 1.0 H 0.9 Glucose 146 H 159 H Calcium 9.1 9.1 Microbiology 09/05/23 18:40 Gram Stain - Final Arm - Right Anaerobic Culture - Preliminary Wound Culture - Final 09/07/23 13:25 Anaerobic Culture - Preliminary Arm - Abscess 09/07/23 13:25 Gram Stain - Final Other Source Body Fluid Culture - Final Methicillin Resis Staph Aureus 09/05/23 10:02 Blood Culture - Final Blood NO GROWTH AFTER 5 DAYS 09/05/23 10:08 Blood Culture - Final Blood NO GROWTH AFTER 5 DAYS Cardiac Studies: 2 Echocardiogram 12/13/21
[2023-09-11] MEDS: sodium chloride 0.9% 1,000 ML 30 ML IV (13:31)
--- NOTE | 2023-09-11 14:08 | P.PHAVANC_ITS ---
Vancomycin Goal - Goal Vancomycin Goal:: 10-15 mg/L Vancomycin Indication:: SSTI - Therapy Day of therpy:: Day 7 Actual body weight (kg): 168 lb 11.2 oz [place] body weight: 52.4 Dosing weight (kg): 62 - Data Labs: WBC 9.76 10^3/uL (3.29-11.43) 09/11/23 06:04 Corrected WBC Cancelled 09/07/23 09:34 RBC 3.00 10^6/uL (3.85-5.65) L 09/11/23 06:04 Hgb 8.10 g/dL (11.27-16.99) L 09/11/23 06:04 Hct 25.9 % (36-47) L 09/11/23 06:04 MCV 86.3 fl (85-98) 09/11/23 06:04 MCH 27.0 pg (27-33) 09/11/23 06:04 MCHC 31.3 g/dL (30-55) D 09/11/23 06:04 RDW 17.1 % (12.1-15.1) H 09/11/23 06:04 Sodium 140 mmol/L (136-145) 09/11/23 06:04 Potassium 4.3 mmol/L (3.5-5.1) 09/11/23 06:04 Chloride 106 mmol/L (98-107) 09/11/23 06:04 Carbon Dioxide 23 mmol/L (22-29) 09/11/23 06:04 Anion Gap 15.3 (5-19) 09/11/23 06:04 BUN 10 mg/dL (8-23) 09/11/23 06:04 Creatinine 0.9 mg/dL (0.5-0.9) 09/11/23 06:04 GFR Calculation Not Reportable 09/11/23 06:04 Last dialysis session:: N/A Treatment plan:: continue Regimen:: VANCOMYCIN 1250 MG Q24H Follow up:: TROUGH TO BE DRAWN PRIOR TO 4TH DOSE AND RENAL FUNCTION MONITORED
[2023-09-11] MEDS: vancomycin 1,000 MG SDV 3000 MG IRRIGATION (14:30)
--- NOTE | 2023-09-11 15:00 | PM.OP ---
Operative Report Date of procedure: September 11, 2023 Pre-op diagnosis: Right upper arm infection surrounding open reduction internal fixation midshaft humerus fracture Post-op diagnosis: Right upper arm infection surrounding open reduction internal fixation midshaft humerus fracture Post-op findings: Hematoma with some necrotic tissue. No obvious jong abscess. Loose screw from most proximal hole of the plate. Instability at the fracture site. Procedure done: Incision, drainage, and debridement of right anterior medial upper arm with removal of hardware, 1 screw. Implants: None Specimens removed/disposition: Hardware proximal screw x 1 Pathology: Cultures of soft tissue, deep. Surgeon: Judit Black MD [employer] Collector: Alvina Ashley, nurse practitioner, who services were necessary for positioning and maintenance of position during the surgical procedure. Anesthesia: General (Per LMA, ASA 3) Estimated blood loss (mL): 50 IV fluids (mL): 500 Urine output (mL): 0 (No Smith) Complications: None Findings: Necrotic tissue, but primarily hematoma, with no obvious jong abscess. Instability at the fracture site. Condition: stable Disposition: floor (Return to floor following surgical procedure.) Brief History: Deyanira Gonsales is a 77 year old female patient was admitted through the emergency department. The patient underwent open reduction internal fixation of a right midshaft humerus fracture by Dr. Martin on August 03, 2023. When she was seen in the office subsequently, initially, she was doing well, but subsequently she developed some redness about the wound, and she was placed on p.o. antibiotics. The patient presented to the emergency department with increased redness and swelling in the upper extremity. After CT scan, she was admitted for IV antibiotic treatment. As Dr. Martin was out of town, I was asked to manage the patient until his return. Ultrasound-guided aspiration was obtained through interventional radiology. Cultures as of today, indicate methicillin-resistant Staph aureus. Cellulitis improved substantially, but there was a pocket in the superior aspect of the wound which was concerning, and therefore, the patient was scheduled for an incision and drainage as well as debridement of this area. Additionally, x-rays demonstrated the most proximal screw was pulled out of the plate, and this was removed as well. Procedure: The patient was brought to the operating theater and underwent general anesthesia per LMA, ASA 3. The patient was placed in a beachchair position and subsequently the right upper extremity was prepped and draped in the usual fashion utilizing DuraPrep. The arm was draped free. A surgical pause was performed prior to commencement of the surgical procedure. At the time of the surgical pause, we confirmed the site and side of surgery as well as administration of appropriate preoperative antibiotics which were continuation of her antibiotics which have been administered routinely. Following the surgical pause, the patient's previous incision was reentered over the area of concern and extending distally to a small area that had purulence and a pinpoint area. Initially, the incision was opened sharply, but after entering the area, hemostats were used to spread the soft tissues. Debridement of soft tissues was accomplished with a scalpel on the skin. Subcutaneous tissues and hematoma which needed debridement was removed using a rongeur. Cultures were sent. Evaluation of the fracture demonstrated some instability to anterior posterior stress. The plate was palpated and was felt to be secure, but concerning for proximal hardware failure. Once debridement was accomplished of the hematoma, subcutaneous tissues, skin, and a small amount of deeper tissues consistent with muscle and/or fascia, the wound was copiously irrigated with 3 L of normal saline containing 3 g of vancomycin. When the wound was irrigated, there was no evidence of significant bleeding. Therefore, attention was directed to packing of the wound. The wound was packed with half-inch iodoform gauze. This was followed by 4 x 4's, ABDs, Kerlix, and an Ovi wrap. The patient was returned to the recovery room in satisfactory condition. Postoperatively, she will be returned to the floor for daily dressing changes. I will ask Dr. Faustin to reassess her when he returns later this week regarding definitive treatment of her fracture and current apparent infection. Related Problem List Diagnoses (1) Closed fracture of humerus, shaft: (2) Surgical site infection: (3) Cellulitis:
--- NOTE | 2023-09-11 15:07 | ANE.PACU2 ---
Inpatient post-anesthesia follow up: Airway intact: Yes Vital signs: Temperature 97.1 F Pulse Rate 98 Respiratory Rate 17 Blood Pressure 130/59 Pulse Oximetry 97 Oxygen Delivery Me thod Nasal Cannula Oxygen Flow Rate 2 Fraction of Inspir ed Oxygen Hydration adequate: Yes Nausea and vomiting: No Pain level: 2 Mental status: Baseline
--- NOTE | 2023-09-11 16:01 | PC.OT ---
OT tx attempted 2x today pt off the floor in surgery 1300 and 1500. OT tx to resume tomorrow as tolerated by pt.
[2023-09-11 16:09] LABS: Glucose Point of Care 168 mg/dL (70-110)
[2023-09-11 16:09] LABS: Glucose Point of Care 143 mg/dL (70-110)
--- NOTE | 2023-09-11 16:45 | P.PN_ITS ---
Subjective 2 Subjective: Patient was seen this morning, she is alert to person, to place, not to time she follows all commands, denies any fevers, no chills, no cough continues to complain of right shoulder right arm pain, she is also complaining of increased weakness of her right hand, decreased strength Vitals/I&O/Wt Last Vital Signs Temp 97.5 F L 09/11/23 16:00 Pulse 104 H 09/11/23 16:00 Resp 17 09/11/23 16:00 BP 144/84 09/11/23 16:00 Pulse Ox 97 09/11/23 16:00 O2 Del Method Nasal Cannula 09/11/23 16:00 O2 Flow Rate 2 09/11/23 15:18 09/11/23 09/11/23 09/11/23 06:59 14:59 22:59 Intake Total 262.5 / 1519.583 0 / 0 100 / 100 Output Total 50 / 50 0 / 50 Balance 262.5 / 1119.583 -50 / -50 100 / 50 Weight last 48 hrs Weight 76.521 kg Weight 76.975 kg Physical Exam 2 Const: COMMON NORMALS: no acute distress ORIENTATION/CONSCIOUSNESS: Yes awake, Yes oriented to person and Yes oriented to place Resp: COMMON NORMALS: normal respiratory effort, No retractions, No use of accessory muscles and clear to auscultation bilaterally AUSCULTATION: clear to auscultation bilaterally Cardio: COMMON NORMALS: regular rate, regular rhythm, S1 normal heart sound present and S2 normal heart sound present RATE: regular rate RHYTHM: r egular rhythm HEART SOUNDS: S1 normal heart sound present and S2 normal heart sound present GI: COMMON NORMALS: Normal to inspection, nondistended, normoactive bowel sounds present and non-tender Extremity: COMMON NORMALS: no pedal edema Neuro: SENSORIUM/ORIENTATION: Yes oriented to person and Yes oriented to place Data 09/11/23 06:04 09/11/23 06:04 Micro: Microbiology 09/05/23 18:40 Gram Stain - Final Arm - Right Anaerobic Culture - Preliminary Wound Culture - Final 09/07/23 13:25 Anaerobic Culture - Preliminary Arm - Abscess 09/07/23 13:25 Gram Stain - Final Other Source Body Fluid Culture - Final Methicillin Resis Staph Aureus A&P Assessment and plan (1) Cellulitis: Qualifiers: Laterality: right Site of cellulitis: extremity Site of cellulitis of extremity: upper extremity Qualified Code(s): L03.113 - Cellulitis of right upper limb (2) Closed fracture of humerus, shaft: Qualifiers: Encounter type: initial encounter Fracture morphology: other fracture Laterality: right Qualified Code(s): S42.391A - Other fracture of shaft of right humerus, initial encounter for closed fracture (3) Surgical site infection: (4) Rash: (5) Encephalopathy acute: Plan Acute encephalopathy, resolving ? CT head within normal limits ?Neurochecks -Aspiration precautions ?NIH stroke scale Surgical site infection, cellulitis,status post open reduction internal fixation right humeral shaft fracture CT with IV contrast of surgical site CCESSION #: [id number] CT/[place] [id number] IMPRESSION: 1. Small suspected developing abscess or phlegmon in the anterior RIGHT upper arm in the subcutaneous soft tissues extending to the skin. Recommend correlation for overlying cellulitis. 2. RIGHT upper extremity arteries appear patent. 3. If concern for venous SVT or DVT this would be better evaluated with ultrasound. 4. Anterior RIGHT acetabular fracture with callus formation has a chronic appearance. Chronic appearing RIGHT inferior pubic ramus fracture with callus formation. 5. No other new findings. -IR drainage culture showing MRSA ? Plan ? Follow blood cultures ? Venous ultrasound no DVT ? IV vancomycin ? IV Zosyn has been discontinued ? Monitor clinical status ? Orthopedic service has been consulted, plans on incision and debridement today -Infectious disease on consult Radial nerve palsy, right upper extremity -Complaints of diminished strength, pain, numbness -Monitor -Conservative interventions Rash bilateral lower extremities, nonpruritic, looks like a nodule and purpura ? Maculopapular, nonblanching ? KATLYN panel ? IgA elevated ? Will monitor Type 2 diabetes mellitus, moderate dose sliding scale Acute on chronic anemia, ? Hemoglobin 8.1 -Monitor Acute kidney injury ? Creatinine 0.9 ? Monitor Patient requires hospitalization ? Full code ? Lovenox for DVT prophylaxis ? Protonix for GI prophylaxis Plan, n.p.o., for surgical debridement today, continue IV antibiotics Attestations 2 Medical Necessity Statement*: Patient requires hospitalization for surgical site infection Diagnoses Cellulitis L03.113 Laterality: right Site of cellulitis: extremity Site of cellulitis of extremity: upper extremity Other closed fracture of shaft of right humerus, initial encounter S42.391A Encounter type: initial encounter Fracture morphology: other fracture Laterality: right Surgical site infection T81.49XA Rash R21 Encephalopathy acute G93.40
[2023-09-11] MEDS: insulin lispro 100 unit/1 mL SUBCUT (17:17)
[2023-09-11] MEDS: enoxaparin 40 mg/0.4 mL Syringe SUBCUT (17:18)
[2023-09-11] MEDS: ALPRAZolam 0.5 mg Tablet PO (17:18)
[2023-09-11] MEDS: atorvastatin 40 mg Tablet 20 MG PO (20:39)
[2023-09-12] VITALS (24 sets, daily range): BP systolic 134–179; BP diastolic 52–82; PULSE 62–97; RESP 14–20; TEMP 36.3–36.7; O2SAT 92–100
--- NOTE | 2023-09-12 | XR_ITS ---
WS: [id number] C-ARM RADIOGRAPHS RIGHT HUMERUS; IMAGES HISTORY: SARAH PICS COMPARISON: None available. Intraoperative imaging during orthopedic procedure. Single images submitted which reveals a fracture in the mid humeral diaphysis. XR/[place] [id number] IMPRESSION: Intraoperative imaging during orthopedic procedure. Minimally displaced fractur e of the mid humeral diaphysis.
[2023-09-12] MEDS: oxyCODONE 5 mg IR Tab/Cap PO (00:01)
[2023-09-12 00:23] LABS: Vancomycin Trough 20.1 ug/mL (10-15)
[2023-09-12] MEDS: vancomycin 1,000 MG in sodium chloride 0.9% 250 ML 250 MG IV (02:21)
[2023-09-12] MEDS: sucralfate 1 gm Tablet PO ×3 (05:51→20:11)
[2023-09-12] MEDS: pantoprazole 40 mg SDV IVP (05:51)
[2023-09-12 06:24] LABS: Hematocrit 25.1 % (36-47); Mean Corpuscular HGB Conc 29.5 g/dL (30-55); Mean Corpuscular Hemoglobin 26.6 pg (27-33); Mean Corpuscular Volume 90.3 fl (85-98); Mean Platelet Volume 8.6 fL (7.4-10.4); Platelet Count 198 10^3/cmm (157-399); Red Blood Count 2.78 10^6/uL (3.85-5.65); Red Cell Distribution Width 17.3 % (12.1-15.1); White Blood Count 9.02 10^3/uL (3.29-11.43)
[2023-09-12 06:48] LABS: Anion Gap 18.1 (5-19); Blood Urea Nitrogen 9 mg/dL (8-23); Carbon Dioxide 22 mmol/L (22-29); Chloride 104 mmol/L (98-107); Creatinine Clr Calc Pharmacy 51.2979; Glucose 159 mg/dL (65-115); Osmolality Calculated 292 mOsm/kg (285-295); Potassium 4.1 mmol/L (3.5-5.1); Sodium 140 mmol/L (136-145)
[2023-09-12 07:45] LABS: Slide Review Slide Review Perform
[2023-09-12 07:46] LABS: Band Neutrophils Absolute 0.2 10^3/cmm (0.0-1.2); Corrected White Blood Count 8.7 10^3/cmm (4.8-10.8); Eosinophils 11 %; Lymphocytes 11 %; Monocytes Absolute 0.5 10^3/cmm (0.1-0.6); Segmented Neutrophils 67 %; Total Cells Counted 100 (0-100)
[2023-09-12 07:47] LABS: Absolute Neutrophil 6.2 10^3/cmm (1.4-6.5); Platelet Estimate Normal (Normal)
[2023-09-12 07:48] LABS: Anisocytosis 1+
[2023-09-12] MEDS: duloxetine 30 mg Capsule PO (08:33)
[2023-09-12] MEDS: duloxetine 60 mg Capsule PO (08:33)
[2023-09-12] MEDS: aspirin 81 mg EC Tablet PO (08:33)
--- NOTE | 2023-09-12 09:55 | PC.SOCIAL ---
IMM Update pg 2 of IMM Updated and reviewed w/ patient. Copy provided, Copy dated and initialed and placed in chart.
[2023-09-12 11:46] LABS: Glucose Point of Care 212 mg/dL (70-110)
[2023-09-12 12:29] LABS: Hematocrit 25.4 % (36-47)
--- NOTE | 2023-09-12 12:50 | PC.NURSE ---
Lab was up to draw an H&H and a hold blood bank tube.
--- NOTE | 2023-09-12 12:51 | PC.NURSE ---
Notified Dr. Chawla about blood sugar of 212. Patient NPO for surgery, NPO so hold the insulin per Dr. Chawla.
--- NOTE | 2023-09-12 13:15 | PM.MISC ---
Miscellaneous Note Purpose of Documentation: Transfer of care Note: Dr. Martin has returned, and this patient's care both inpatient and follow-up will be returned to him.
--- NOTE | 2023-09-12 14:08 | PC.PHAR ---
VANC TROUGH WAS HIGH AT 20.1 ADJUSTED BY TELEPHARMACY FROM 1250 MG Q24H TO 1000 MG Q24H
--- NOTE | 2023-09-12 15:43 | ANES.PAUD2 ---
Pre-Anesthetic Update Pre-Anesthetic Assessment: Date of Surgery/Procedure: 09/12/23 Proposed Procedure: Operation Date: 09/11/23 12:40 Proposed Procedures p Incision & Drainage Upper Extremity(Right) - Judit Black MD Operation Date: 09/12/23 16:00 Proposed Procedures p Hardware Removal Humerus(Right) - León Martin, DO Any changes to Pre-Anesthetic Assessment?: No Last Intake: Intake Last Liquid Date 09/11/23 Last Solid Date 09/11/23 Last Solid Time 12:00 Labs Last 48hrs: Short CBC 09/11/23 09/12/23 09/12/23 Range/Units 06:04 06:00 12:08 WBC 9.76 9.02 (3.29-11.43) 10^ 3/uL Hgb 8.10 L 7.40 L 7.40 L (11.27-16.99) g/ dL Hct 25.9 L 25.1 L 25.4 L (36-47) % MCV 86.3 90.3 (85-98) fl Plt Count 174 D 198 (157-399) 10^3/c mm Neut % (Auto) 55.7 % Neut # (Auto) 5.43 (1.8-7.7) 10^3/u L BMP 09/11/23 09/12/23 06:04 06:00 Sodium 140 140 Potassium 4.3 4.1 Chloride 106 104 Carbon Dioxide 23 22 BUN 10 9 Creatinine 0.9 0.9 Glucose 159 H 159 H Calcium 9.1 9.0 Vitals: Temperature 97.4 F L 09/12/23 15:41 Temperature Source Axillary 09/12/23 11:55 Pulse Rate 70 09/12/23 15:41 Pulse Rhythm Regular 09/09/23 08:00 Pulse Strength 3+ Normal 09/09/23 08:00 Respiratory Rate 16 09/12/23 15:41 Respiratory Effort Spontaneous, Non- Labored 09/12/23 08:00 Respiratory Depth Normal 09/12/23 08:00 Respiratory Patter n Normal 09/12/23 08:00 Blood Pressure 154/75 09/12/23 15:41 Blood Pressure Mirian n 101 09/12/23 15:41 Blood Pressure Pos ition Semi Fowlers 09/12/23 04:00 Pulse Oximetry 97 09/12/23 15:41 Oxygen Delivery Me thod Nasal Cannula 09/12/23 15:41 Oxygen Flow Rate 2 09/12/23 15:41 Sepsis Recent Feve r Within 48 Hours No 09/05/23 09:46 Exam: Pre-Anes Outpt Exam: alert, oriented x 3, clear to auscultation bilaterally and regular rate & rhythm Cardiac Studies: Echocardiogram 12/13/21
--- NOTE | 2023-09-12 15:49 | ANES.PROC ---
Anesthesia Procedures Procedure/Date: 09/12/23 Nerve Block ^: Nerve Block 1: Main Anesthesia: general anesthesia Time Out Performed: Yes Consent: requested by attending/covering physician, from patient, from other, risks and benefits reviewed and patient agrees to proceed Nerve block location: supraclavicular (R) Anesthesia monitors applied: pulse oximetry, EKG, BP cuff and oxygen Nerve block position: semi sitting Anesthetic Used: ropivicaine 0.5% (30 ml) and with decadron (4 mg) Ultrasound used to: recognize landmarks, visualize and ID brachial plexus and in supraclavicular region Nerve Stimulator Used?: No Interscalene/Femoral BLK: 4 stimuplex 21 g needle used for position and inplane approach, visualize local anesthetic spread and no vascular puncture identified Injection: neg aspiration of heme Patient Tolerated Procedure: well Complications: none
--- NOTE | 2023-09-12 15:51 | PM.CONSULT ---
Providers/Reason For Consult Consulting Physician/Specialty*: Hospitalist Reason for Consult*: Infected humerus Attending Physician: Farshad Chawla MD Primary Care Provider: Alem Auguste History of Present Illness History of Present Illness Deyanira Gonsales is a 78 year old female with left humerus fracture that got infected. She is taken the OR yesterday for initial I&D and screw movable. She grew MRSA. Review of Systems General: Reports: 10 or more systems reviewed and unremarkable except in HPI and below Const: Denies: fever(s), chills or body aches Eyes: Denies: change in vision, blurry vision or photophobia ENMT: Reports: hoarseness; Denies: throat pain, enlarged tonsils, odynophagia or nasal congestion Card: Denies: chest pain, palpitations, irregular heart rhythm, edema, swelling of feet/ankles, lightheadedness, pre-syncope, dyspnea on exertion or orthopnea Resp: Denies: dyspnea, productive cough, non-productive cough, wheezing, stridor, pain on inspiration, change in phlegm color, hemoptysis or chest congestion GI: Denies: abdominal pain, nausea, vomiting, hematemesis, coffee ground emesis, dysphagia, heartburn, diarrhea, constipation, GI cramping, change in stool character, hematochezia or melena : Denies: flank pain, difficulty voiding, dysuria, urinary frequency, urinary urgency, urinary hesitancy or hematuria Musc: Denies: neck pain, back pain, extremity pain, joint swelling, joint warmth or deformity Neuro: Denies: headache(s), numbness in extremities, weakness in extremities, sensory changes, difficulty walking, frequent falls, dizziness, vertigo, behavioral changes, Slurred speech present or seizure-like activity Psych: Denies: anxiety, depression, suicidal ideation or homicidal ideation Endo: Denies: polyuria, polydipsia, tired all the time, cold intolerance or hot flashes Casey/Lymph: Denies: easy bruising or easy bleeding Medications/Allergies Home Medications Medication Instructions Recorded Confirmed Last Taken Type duloxetine 60 mg capsule,delayed 60 mg PO DAILY 06/20/19 09/05/23 09/05/23 History release sprinkle aspirin 81 mg tablet,delayed 81 mg PO DAILY #30 tabs 06/25/19 09/05/23 09/05/23 Rx release (Farzana Low Dose Aspirin) methocarbamol 500 mg tablet 500 mg PO QID PRN Muscle Spasms 06/25/19 09/05/23 09/02/23 Rx #14 tabs insulin glargine 100 unit/mL 55 unit SUBCUT QPM 12/12/21 09/05/23 09/04/23 History subcutaneous solution (Lantus U-100 Insulin) budesonide 180 mcg/actuation 1 inh inhalation BID #1 ea 12/20/21 09/05/23 09/05/23 Rx breath activated powder inhaler (Pulmicort Flexhaler) albuterol sulfate 2.5 mg/3 mL 2.5 mg inhalation Q6H PRN 07/16/23 09/05/23 07/24/23 History (0.083 %) solution for nebulization Shortness Of Breath atorvastatin 20 mg tablet 20 mg PO BEDTIME 07/16/23 09/05/23 09/04/23 History duloxetine 30 mg capsule,delayed 30 mg PO DAILY 07/16/23 09/05/23 09/05/23 History release insulin lispro 100 unit/mL See Rx Instructions .Route 07/16/23 09/05/23 09/05/23 History subcutaneous pen (Humalog KwikPen .COMPLEX PRN blood sugar (U-100) Insulin) metoprolol tartrate 25 mg tablet 25 mg PO BID 07/16/23 09/05/23 09/05/23 History pantoprazole 40 mg tablet,delayed 40 mg PO DAILY 07/16/23 09/05/23 09/05/23 History release umeclidinium 62.5 mcg-vilanterol 1 ea inhalation DAILY 07/16/23 09/05/23 09/05/23 History 25 mcg/actuation powdr for inhalation (Anoro Ellipta) furosemide 40 mg tablet 40 mg PO DAILY PRN Swelling #2 tabs 07/19/23 09/05/23 07/16/23 Rx acetaminophen 325 mg tablet 650 mg PO Q6H PRN pain/fever 08/03/23 09/05/23 08/31/23 History (Tylenol) alprazolam 0.5 mg tablet 0.5 mg PO BID PRN Anxiety 08/03/23 09/05/23 09/02/23 History bisacodyl 10 mg rectal suppository 10 mg [place] DAILY PRN Constipation 08/03/23 09/05/23 Unknown History docusate sodium 100 mg capsule 100 mg PO DAILY 08/03/23 09/05/23 09/05/23 History (Colace) ketoconazole 2 % shampoo 1 applic topical .2XWEEKLY PRN 08/03/23 09/05/23 Unknown History lather magnesium hydroxide 400 mg/5 mL 30 ml PO DAILY PRN Constipation 08/03/23 09/05/23 Unknown History oral suspension (Milk of Magnesia) sodium phosphates 19 gram-7 118 ml [place] DAILY PRN Constipation 08/03/23 09/05/23 Unknown History gram/118 mL enema (Fleet Enema) Wrist brace #1 ea 08/07/23 09/05/23 Unknown Rx tramadol 50 mg tablet 50 mg PO Q8H PRN pain #20 tabs 08/21/23 09/05/23 09/02/23 Rx amino acids-protein hydrolysate 15 1 ea PO DAILY 09/05/23 09/05/23 09/05/23 History gram-101 kcal/30 mL oral liquid diphenhydramine HCl 25 mg capsule 25 mg PO DAILY PRN Allergic 09/05/23 09/05/23 09/01/23 History (Benadryl) Reaction hydrocortisone 1 % topical cream 1 applic topical QID PRN RASH/ITCH 09/05/23 09/05/23 Unknown History lactobacillus combination no.4 3 3,000 mmu cells PO DAILY PRN WHILE 09/05/23 09/05/23 Unknown History billion cell capsule (Probiotic) ON ANTIBIOTICS linezolid 600 mg tablet 600 mg PO BID 09/05/23 09/05/23 09/05/23 History nystatin 100,000 unit/gram topical 1 applic topical BID PRN REDNESS 09/05/23 09/05/23 Unknown History powder polyethylene glycol 3350 17 See Rx Instructions .Route .COMPLEX 09/05/23 09/05/23 09/05/23 History gram/dose oral powder (Miralax) Allergies Allergy/AdvReac Type Severity Reaction Status Date / Time acetaminophen [From Vicodin] Allergy ADR-Confusi Verified 08/21/23 14:10 on cephalexin Allergy ALGY-Hives Verified 08/21/23 14:10 fluticasone Allergy Unknown Verified 08/21/23 14:10 [From Advair Diskus] hydrocodone [From Vicodin] Allergy ADR-Confusi Verified 08/21/23 14:10 on nitrofurantoin Allergy ALGY-Hives Verified 08/21/23 14:10 [From Macrobid] salmeterol Allergy Unknown Verified 08/21/23 14:10 [From Advair Diskus] Current Medications Generic Name Dose Route Start Last Admin Trade Name Freq PRN Reason Stop Dose Admin Alprazolam 0.5 mg 09/05/23 16:48 09/11/23 17:18 Alprazolam 0.5 Mg Tablet PO 0.5 mg BID PRN Administration Anxiety Aspirin 81 mg 09/06/23 09:00 09/12/23 08:33 Aspirin 81 Mg Ec Tablet PO 81 mg DAILY KARI Administration Atorvastatin Calcium 20 mg 09/05/23 21:00 09/11/23 20:39 Atorvastatin 40 Mg Tablet PO 20 mg BEDTIME KARI Administration Duloxetine HCl 30 mg 09/06/23 09:00 09/12/23 08:33 Duloxetine 30 Mg Capsule PO 30 mg DAILY KARI Administration Duloxetine HCl 60 mg 09/06/23 09:00 09/12/23 08:33 Duloxetine 60 Mg Capsule PO 60 mg DAILY KARI Administration Enoxaparin Sodium 40 mg 09/05/23 16:48 09/11/23 17:18 Enoxaparin 40 Mg/0.4 Ml Syringe SUBCUT 40 mg Q24H KARI Administration Vancomycin HCl 1,000 mg/ 250 mls @ 250 mls/hr 09/12/23 01:30 09/12/23 04:50 Sodium Chloride IV Infused Q24H KARI Infusion Insulin Human Lispro 0 unit 09/05/23 18:00 09/12/23 12:50 Insulin Lispro 100 Unit/1 Ml SUBCUT Not Given [facility] Protocol Oxycodone HCl 5 - 10 mg 09/11/23 16:33 09/12/23 00:01 Oxycodone 5 Mg Ir Tab/Cap PO 5 mg Q4H PRN Administration MODERATE TO SEVERE PAIN Pantoprazole Sodium 40 mg 09/08/23 18:00 09/12/23 05:51 Pantoprazole 40 Mg Sdv IVP 40 mg Q12H KARI Administration Sucralfate 1 gm 09/08/23 11:00 09/12/23 11:35 Sucralfate 1 Gm Tablet PO 1 gm AC&BEDTIME KARI Administration PFSH Acute PFSH: Medical History Hypertension Obstructive sleep apnea intolerant of cpap Coronary artery disease CKD (chronic kidney disease) stage 3, GFR 30-59 ml/min Pneumonia Stroke Coffee ground emesis 2021 Nephrolithiasis Peripheral neuropathy Depression Diabetes mellitus type 2 in obese COPD (chronic obstructive pulmonary disease) Chronically uses 2 L per nasal cannula Surgical History History of ankle surgery History of cataract surgery History of bladder surgery History of carpal tunnel surgery History of shoulder surgery History of appendectomy Hx of CABG 2004 Family History Other Dementia Social History Smoking and tobacco/nicotine status: former use of tobacco/nicotine Quit status (tobacco/nicotine): has quit using Year quit tobacco: 12/2022 Alcohol intake: never Substance/Drug Use: never Vitals/I&O/Wt Last Vital Signs Temp 97.4 F L 09/12/23 15:41 Pulse 70 09/12/23 15:41 Resp 16 09/12/23 15:41 BP 154/75 09/12/23 15:41 Pulse Ox 97 09/12/23 15:41 O2 Del Method Nasal Cannula 09/12/23 15:41 O2 Flow Rate 2 09/12/23 15:41 09/12/23 09/12/23 09/12/23 06:59 14:59 22:59 Intake Total 250 / 652 Balance 250 / 452 Weight last 48 hrs Weight 163 lb 8 oz Weight 168 lb 11.2 oz Physical Exam Narrative: Difficult to get a good exam with the patient's dementia Data 09/12/23 12:08 09/12/23 06:00 Micro: Microbiology 09/11/23 14:37 Gram Stain - Preliminary Tissue Anaerobic Culture - Preliminary Tissue Culture - Preliminary A&P Assessment and plan (1) Closed fracture of humerus, shaft: Infected humerus Plan is to remove hardware. Do I&D and wound closure. Qualifiers: Encounter type: initial encounter Fracture morphology: other fracture Laterality: right Qualified Code(s): S42.391A - Other fracture of shaft of right humerus, initial encounter for closed fracture Coding Level of Care Code Acute Code for Chg Fwd Diagnoses Other closed fracture of shaft of right humerus, initial encounter S42.391A Encounter type: initial encounter Fracture morphology: other fracture Laterality: right
--- NOTE | 2023-09-12 16:29 | P.PN_ITS ---
Subjective 2 Subjective: Patient was seen this morning, she is currently n.p.o., for surgical intervention by Dr. Martin, she denies any fevers, no chills, no nausea, no vomiting Vitals/I&O/Wt Last Vital Signs Temp 97.4 F L 09/12/23 15:41 Pulse 70 09/12/23 15:41 Resp 16 09/12/23 15:41 BP 154/75 09/12/23 15:41 Pulse Ox 97 09/12/23 15:41 O2 Del Method Nasal Cannula 09/12/23 15:41 O2 Flow Rate 2 09/12/23 15:41 09/12/23 09/12/23 09/12/23 06:59 14:59 22:59 Intake Total 250 / 652 Balance 250 / 452 Weight last 48 hrs Weight 74.162 kg Weight 76.521 kg Physical Exam 2 Const: COMMON NORMALS: no acute distress and patient oriented x3 Resp: COMMON NORMALS: normal respiratory effort, No retractions, No use of accessory muscles and clear to auscultation bilaterally AUSCULTATION: clear to auscultation bilaterally Cardio: COMMON NORMALS: regular rate, regular rhythm, S1 normal heart sound present and S2 normal heart sound present RATE: regular rate RHYTHM: r egular rhythm HEART SOUNDS: S1 normal heart sound present and S2 normal heart sound present GI: COMMON NORMALS: Normal to inspection, nondistended, normoactive bowel sounds present and non-tender Extremity: COMMON NORMALS: no pedal edema NARRATIVE EXTREMITY EXAM: Right upper extremity wrapped, right hand, radial nerve palsy, right hand decreased mobility, decreased strength Neuro: COMMON NORMALS: patient oriented x3 Psych: COMMON NORMALS: mental status grossly normal Data 09/12/23 12:08 09/12/23 06:00 Micro: Microbiology 09/07/23 13:25 Anaerobic Culture - Preliminary Arm - Abscess 09/11/23 14:37 Gram Stain - Preliminary Tissue Anaerobic Culture - Preliminary Tissue Culture - Preliminary A&P Assessment and plan (1) Cellulitis: Qualifiers: Laterality: right Site of cellulitis: extremity Site of cellulitis of extremity: upper extremity Qualified Code(s): L03.113 - Cellulitis of right upper limb (2) Closed fracture of humerus, shaft: Qualifiers: Encounter type: initial encounter Fracture morphology: other fracture Laterality: right Qualified Code(s): S42.391A - Other fracture of shaft of right humerus, initial encounter for closed fracture (3) Surgical site infection: (4) Rash: (5) Encephalopathy acute: Plan Acute encephalopathy, resolving ? CT head within normal limits ?Neurochecks -Aspiration precautions ?NIH stroke scale Surgical site infection, cellulitis,status post open reduction internal fixation right humeral shaft fracture CT with IV contrast of surgical site CCESSION #: [id number] CT/[place] [id number] IMPRESSION: 1. Small suspected developing abscess or phlegmon in the anterior RIGHT upper arm in the subcutaneous soft tissues extending to the skin. Recommend correlation for overlying cellulitis. 2. RIGHT upper extremity arteries appear patent. 3. If concern for venous SVT or DVT this would be better evaluated with ultrasound. 4. Anterior RIGHT acetabular fracture with callus formation has a chronic appearance. Chronic appearing RIGHT inferior pubic ramus fracture with callus formation. 5. No other new findings. -IR drainage culture showing MRSA -Status post I&D by Dr. Black -Will undergo surgical intervention today by Dr. Faustin ? Plan ? Follow blood cultures ? Venous ultrasound no DVT ? IV vancomycin ? IV Zosyn has been discontinued ? Monitor clinical status -Infectious disease on consult Radial nerve palsy, right upper extremity -Complaints of diminished strength, pain, numbness right hand -Monitor -Conservative interventions Rash bilateral lower extremities, nonpruritic, looks like a nodule and purpura ? Maculopapular, nonblanching ? KATLYN panel ? IgA elevated ? Will monitor Assess have anemia, no abdominal Pain complaints Type 2 diabetes mellitus, moderate dose sliding scale Acute on chronic anemia, ? Hemoglobin 7.4, will give 1 unit of blood -Monitor Acute kidney injury ? Creatinine 0.9 ? Monitor Patient requires hospitalization ? Full code ? Lovenox for DVT prophylaxis ? Protonix for GI prophylaxis Plan, n.p.o., for surgical debridement today, continue IV antibiotics Attestations 2 Medical Necessity Statement*: Patient requires hospitalization for surgical site infection requiring IV antibiotics, further surgical intervention, requiring transfusion of blood Diagnoses Cellulitis L03.113 Laterality: right Site of cellulitis: extremity Site of cellulitis of extremity: upper extremity Other closed fracture of shaft of right humerus, initial encounter S42.391A Encounter type: initial encounter Fracture morphology: other fracture Laterality: right Surgical site infection T81.49XA Rash R21 Encephalopathy acute G93.40
[2023-09-12] MEDS: vancomycin 1,000 MG SDV 1000 MG XX (16:59)
--- NOTE | 2023-09-12 17:13 | PM.OP ---
Operative Report Date of procedure: September 12, 2023 Pre-op diagnosis: Right upper arm infection surrounding open reduction internal fixation midshaft humerus fracture Post-op diagnosis: same Procedure done: 1. Removal of deep hardware from right humerus 2. Irrigation debridement down to bone of infected humerus fracture Surgeon: León Martin DO Estimated blood loss (mL): 250 Procedure: Deep hardware from right humerus Irrigation Garrett down to bone Patient jobless. Anesthesia patient brought into the supine position. Gabriela. Well-padded. Patient was then prepped draped also fashion. Skin incision made using previous skin incision. The skin was cut skin edges were debrided and the dissection was then brought through the anterior musculature. Humeral plate was identified. Screws were then removed from the plate. Plate was removed. The bone screws were debrided rongeur was used to debride bone muscle all located that remained good contractility and color wounds irrigated with saline and then closed in layered fashion with PDS suture and nylon suture. Sterile dressings were applied and patient was transferred to the PACU in stable condition.
--- NOTE | 2023-09-12 17:56 | SUR.PHASEI ---
blood started by anesthesia in recovery
--- NOTE | 2023-09-12 18:35 | ANE.PACU2 ---
Inpatient post-anesthesia follow up: Airway intact: Yes Vital signs: Temperature 97.6 F Pulse Rate 65 Respiratory Rate 16 Blood Pressure 136/64 Pulse Oximetry 100 Oxygen Delivery Me thod Simple Mask Oxygen Flow Rate 5 Fraction of Inspir ed Oxygen Hydration adequate: Yes Nausea and vomiting: No Pain level: 1 Mental status: Baseline
[2023-09-12] MEDS: atorvastatin 40 mg Tablet 20 MG PO (20:11)
[2023-09-12 22:23] LABS: Basophils # 0.1 10^3/uL (0.0-0.1); Basophils % 0.8 %; Eosinophils # 0.2 10^3/uL (0.0-0.8); Eosinophils % 1.9 %; Hematocrit 28.5 % (36-47); Lymphocytes # 0.7 10^3/uL (0.8-4.8); Lymphocytes % 7.9 %; Mean Corpuscular HGB Conc 30.2 g/dL (30-55); Mean Corpuscular Hemoglobin 26.3 pg (27-33); Mean Corpuscular Volume 87.2 fl (85-98); Mean Platelet Volume 8.6 fL (7.4-10.4); Monocytes # 0.2 10^3/uL (0.2-0.9); Monocytes % 2.3 %; Neutrophils # 7.07 10^3/uL (1.8-7.7); Neutrophils % 77.2 %; Nucleated Red Blood Cells # 0.2 /100WBC; Nucleated Red Blood Cells % 1.6 %; Platelet Count 247 10^3/cmm (157-399); Red Blood Count 3.27 10^6/uL (3.85-5.65); Red Cell Distribution Width 17.2 % (12.1-15.1); White Blood Count 9.15 10^3/uL (3.29-11.43)
[2023-09-12 23:12] LABS: Slide Review Slide Review Perform
[2023-09-13] VITALS (9 sets, daily range): BP systolic 136–178; BP diastolic 54–76; PULSE 61–82; RESP 14–20; TEMP 36.4–36.9; O2SAT 2–100
[2023-09-13] MEDS: vancomycin 1,000 MG in sodium chloride 0.9% 250 ML 250 MG IV (00:53)
--- NOTE | 2023-09-13 02:38 | PC.NURSE ---
Pt was increasingly agitated and restless throughout the night, only oriented to her own name. She repeatedly stated she had to pee, would attempt to get up alone, remove her oxygen, and attempt to remover her IV and hemovac drain. Attempted mutliple times to assist the patient to urinate using the bedpan and also bedside commode. Multiple times she did not urinate at all, and when she did she urinated 50mls or less. Notified Dr. Avalos of these symptoms which had not been present during her hospitalization thus far. Received order to place villa catheter. Placed 16 bul[place]ian villa catheter with assistance of radiator repairer and FINANCIAL ADVISOR, urine output upon villa placement was 500mls.
[2023-09-13 05:15] LABS: Basophils # 0.1 10^3/uL (0.0-0.1); Basophils % 0.7 %; Eosinophils % 0.1 %; Hematocrit 25.8 % (36-47); Lymphocytes # 0.8 10^3/uL (0.8-4.8); Lymphocytes % 11.6 %; Mean Corpuscular HGB Conc 29.5 g/dL (30-55); Mean Corpuscular Hemoglobin 26.4 pg (27-33); Mean Corpuscular Volume 89.6 fl (85-98); Mean Platelet Volume 8.8 fL (7.4-10.4); Monocytes # 0.3 10^3/uL (0.2-0.9); Monocytes % 4.6 %; Neutrophils # 4.94 10^3/uL (1.8-7.7); Neutrophils % 73.6 %; Nucleated Red Blood Cells # 0.1 /100WBC; Nucleated Red Blood Cells % 1.5 %; Platelet Count 243 10^3/cmm (157-399); Red Blood Count 2.88 10^6/uL (3.85-5.65); Red Cell Distribution Width 17.6 % (12.1-15.1); White Blood Count 6.72 10^3/uL (3.29-11.43)
[2023-09-13 05:27] LABS: Anion Gap 14.3 (5-19); Blood Urea Nitrogen 10 mg/dL (8-23); Calcium 8.2 mg/dL (8.5-10.5); Carbon Dioxide 21 mmol/L (22-29); Chloride 107 mmol/L (98-107); Creatinine Clr Calc Pharmacy 50.9019; Glucose 175 mg/dL (65-115); Osmolality Calculated 289 mOsm/kg (285-295); Potassium 4.3 mmol/L (3.5-5.1); Sodium 138 mmol/L (136-145)
[2023-09-13 05:50] LABS: Slide Review Slide Review Perform
[2023-09-13] MEDS: pantoprazole 40 mg SDV IVP ×2 (06:51→17:56)
[2023-09-13 07:44] LABS: Glucose Point of Care 149 mg/dL (70-110)
[2023-09-13] MEDS: insulin lispro 100 unit/1 mL SUBCUT ×2 (08:14→17:56)
--- NOTE | 2023-09-13 08:20 | P.PN_ITS ---
Subjective 2 Subjective: Patient resting comfortably in bed with a sitter in the room Vitals/I&O/Wt Last Vital Signs Temp 97.6 F 09/13/23 07:45 Pulse 65 09/13/23 08:08 Resp 16 09/13/23 08:08 BP 136/64 09/13/23 07:45 Pulse Ox 100 09/13/23 08:08 O2 Del Method Simple Mask 09/13/23 08:08 O2 Flow Rate 5 09/13/23 08:08 09/12/23 09/13/23 09/13/23 22:59 06:59 14:59 Intake Total 0 / 0 250 / 250 60 / 60 Output Total 300 / 300 650 / 950 Balance -300 / -300 -400 / -700 60 / 60 Weight last 48 hrs Weight 160 lb 14.4 oz Weight 163 lb 8 oz Physical Exam 2 Narrative: Patient resting comfortably in bed with a sitter in the room Urinary Catheter Management: Smith: Cath Placed During This Visit: yes Reason for Continuing Indwelling Catheter: Acute Urinary Retention or Obstruction Urinary Catheter Date of Insertion: 09/13/23 Urinary Catheter Time of Insertion: 02:36 Data 09/13/23 04:25 09/13/23 04:25 Micro: Microbiology 09/05/23 18:40 Gram Stain - Final Arm - Right Anaerobic Culture - Preliminary Wound Culture - Final 09/07/23 13:25 Anaerobic Culture - Preliminary Arm - Abscess 09/11/23 14:37 Gram Stain - Preliminary Tissue Anaerobic Culture - Preliminary Tissue Culture - Preliminary A&P Assessment and plan (1) Closed fracture of humerus, shaft: Patient has a postop day #1 removal of deep hardware from right humerus. Will DC the drain today Zee brace after drain pulled Nonweightbearing right upper extremity. Dressing changes after 48 hours. Qualifiers: Encounter type: initial encounter Fracture morphology: other fracture Laterality: right Qualified Code(s): S42.391A - Other fracture of shaft of right humerus, initial encounter for closed fracture Attestations 2 Medical Necessity Statement*: Per primary service Coding Level of Care Code Acute Code for Chg Fwd Diagnoses Other closed fracture of shaft of right humerus, initial encounter S42.391A Encounter type: initial encounter Fracture morphology: other fracture Laterality: right
[2023-09-13 11:20] LABS: Glucose Point of Care 140 mg/dL (70-110)
[2023-09-13] MEDS: sucralfate 1 gm Tablet PO ×3 (11:42→21:17)
[2023-09-13 12:45] LABS: Hematocrit 25.9 % (36-47)
[2023-09-13 12:58] LABS: SARS Covid-2 Antigen negative (Negative)
[2023-09-13 13:30] LABS: DNA AB (DS) CRITHIDIA,IFA NEGATIVE (NEGATIVE)
--- NOTE | 2023-09-13 14:32 | XR_ITS ---
WS: [id number] XR chest 1V portable [id number] REASON FOR EXAM: picc line insertion FINDINGS: Left arm PICC line has been placed. After consultation over the phone the catheter was advanced the r emaining 1 cm distal to the venotomy. The catheter tip final position was in the mid SVC. Moderate tortuosity of the thoracic aorta. The heart is mildly enlarged. Chronic reticular interstitial opacities throughout both lungs. Increased opacity in the left lower l marco antonio with groundglass densities and areas of linear atelectasis and airspace consolidation. The opacit ies in the left lower lung have improved somewhat compared to 07/16/2023. XR/XR chest 1V portable [id number] IMPRESSION: PICC line placement as above. Some improvement in the left lower lung opacities.
--- NOTE | 2023-09-13 15:10 | P.PN_ITS ---
Subjective 2 Subjective: Patient was seen this morning, currently on 2 L, a bit drowsy she does awaken, answers questions appropriate, alert to person, place not to time, afebrile overnight, normotensive, did have episodes of confusion, currently much more alert awake but still having episodes of drowsiness Vitals/I&O/Wt Last Vital Signs Temp 97.6 F 09/13/23 11:19 Pulse 67 09/13/23 11:19 Resp 16 09/13/23 11:19 BP 136/61 09/13/23 11:19 Pulse Ox 97 09/13/23 11:19 O2 Del Method Nasal Cannula 09/13/23 11:19 O2 Flow Rate 5 09/13/23 08:08 09/13/23 09/13/23 09/13/23 06:59 14:59 22:59 Intake Total 250 / 250 300 / 300 Output Total 650 / 950 Balance -400 / -700 300 / 300 Weight last 48 hrs Weight 72.983 kg Weight 74.162 kg Physical Exam 2 Const: COMMON NORMALS: no acute distress ORIENTATION/CONSCIOUSNESS: Yes awake, Yes oriented to person and Yes oriented to place; not oriented to time Resp: COMMON NORMALS: normal respiratory effort, No retractions, No use of accessory muscles and clear to auscultation bilaterally AUSCULTATION: clear to auscultation bilaterally Cardio: COMMON NORMALS: regular rate, regular rhythm, S1 normal heart sound present and S2 normal heart sound present RATE: regular rate RHYTHM: r egular rhythm HEART SOUNDS: S1 normal heart sound present and S2 normal heart sound present GI: COMMON NORMALS: Normal to inspection, nondistended, normoactive bowel sounds present and non-tender Extremity: COMMON NORMALS: no pedal edema Neuro: SENSORIUM/ORIENTATION: Yes oriented to person, Yes oriented to place and No oriented to time Psych: COMMON NORMALS: mental status grossly normal Skin: NARRATIVE SKIN EXAM: Right shoulder surgical site, right Urinary Catheter Management: Smith: Cath Placed During This Visit: yes Reason for Continuing Indwelling Catheter: Acute Urinary Retention or Obstruction Urinary Catheter Date of Insertion: 09/13/23 Urinary Catheter Time of Insertion: 02:36 Data 09/13/23 12:36 09/13/23 04:25 Micro: Microbiology 09/11/23 14:37 Gram Stain - Preliminary Tissue Anaerobic Culture - Preliminary Tissue Culture - Preliminary 09/07/23 13:25 Anaerobic Culture - Preliminary Arm - Abscess 09/05/23 18:40 Gram Stain - Final Arm - Right Anaerobic Culture - Preliminary Wound Culture - Final A&P Assessment and plan (1) Cellulitis: Qualifiers: Laterality: right Site of cellulitis: extremity Site of cellulitis of extremity: upper extremity Qualified Code(s): L03.113 - Cellulitis of right upper limb (2) Closed fracture of humerus, shaft: Qualifiers: Encounter type: initial encounter Fracture morphology: other fracture Laterality: right Qualified Code(s): S42.391A - Other fracture of shaft of right humerus, initial encounter for closed fracture (3) Surgical site infection: (4) Rash: (5) Encephalopathy acute: Plan Acute encephalopathy, resolving ? CT head within normal limits ?Neurochecks -Aspiration precautions ?NIH stroke scale Surgical site infection, cellulitis,status post open reduction internal fixation right humeral shaft fracture CT with IV contrast of surgical site CCESSION #: [id number] CT/[place] [id number] IMPRESSION: 1. Small suspected developing abscess or phlegmon in the anterior RIGHT upper arm in the subcutaneous soft tissues extending to the skin. Recommend correlation for overlying cellulitis. 2. RIGHT upper extremity arteries appear patent. 3. If concern for venous SVT or DVT this would be better evaluated with ultrasound. 4. Anterior RIGHT acetabular fracture with callus formation has a chronic appearance. Chronic appearing RIGHT inferior pubic ramus fracture with callus formation. 5. No other new findings. -IR drainage culture showing MRSA -Status post I&D by Dr. Sofia Martin Procedure done: 1. Removal of deep hardware from right humerus 2. Irrigation debridement down to bone of infected humerus fractureWill undergo surgical intervention today by Dr. Faustin ? Plan ? Follow blood cultures ? Venous ultrasound no DVT ? IV vancomycin ? Monitor clinical status -Infectious disease on consult Radial nerve palsy, right upper extremity -Complaints of diminished strength, pain, numbness right hand -Monitor -Conservative interventions Rash bilateral lower extremities, nonpruritic, looks like a nodule and purpura ? Maculopapular, nonblanching ? KATLYN panel ? IgA elevated ? Will monitor Assess have anemia, no abdominal Pain complaints Type 2 diabetes mellitus, moderate dose sliding scale Acute on chronic anemia, ? Hemoglobin 7.8, status post 1 unit PRBC -Monitor Acute kidney injury ? Creatinine 0.9 ? Monitor Patient requires hospitalization ? Full code ? Lovenox for DVT prophylaxis ? Protonix for GI prophylaxis Plan, continue IV antibiotics, follow surgical cultures, place PICC line, monitor mentation Attestations 2 Medical Necessity Statement*: Patient requires hospitalization for surgical site infection Diagnoses Cellulitis L03.113 Laterality: right Site of cellulitis: extremity Site of cellulitis of extremity: upper extremity Other closed fracture of shaft of right humerus, initial encounter S42.391A Encounter type: initial encounter Fracture morphology: other fracture Laterality: right Surgical site infection T81.49XA Rash R21 Encephalopathy acute G93.40
[2023-09-13 16:04] LABS: Glucose Point of Care 201 mg/dL (70-110)
[2023-09-13] MEDS: enoxaparin 40 mg/0.4 mL Syringe SUBCUT (17:56)
[2023-09-13] MEDS: atorvastatin 40 mg Tablet 20 MG PO (21:17)
[2023-09-13] MEDS: oxyCODONE 5 mg IR Tab/Cap PO (23:39)
[2023-09-13] MEDS: ALPRAZolam 0.5 mg Tablet PO (23:39)
[2023-09-14] VITALS (18 sets, daily range): BP systolic 116–164; BP diastolic 61–83; PULSE 61–79; RESP 13–20; TEMP 36.6–37; O2SAT 93–99
[2023-09-14] MEDS: vancomycin 1,000 MG in sodium chloride 0.9% 250 ML 250 MG IV (01:15)
[2023-09-14 04:33] LABS: Basophils % 0.3 %; Eosinophils # 0.3 10^3/uL (0.0-0.8); Eosinophils % 3.8 %; Lymphocytes # 1.2 10^3/uL (0.8-4.8); Lymphocytes % 18.7 %; Mean Corpuscular HGB Conc 29.6 g/dL (30-55); Mean Corpuscular Hemoglobin 26.2 pg (27-33); Mean Corpuscular Volume 88.7 fl (85-98); Mean Platelet Volume 8.8 fL (7.4-10.4); Monocytes # 0.6 10^3/uL (0.2-0.9); Monocytes % 8.7 %; Neutrophils # 4.23 10^3/uL (1.8-7.7); Neutrophils % 64.8 %; Nucleated Red Blood Cells % 0.5 %; Platelet Count 201 10^3/cmm (157-399); Red Blood Count 2.82 10^6/uL (3.85-5.65); Red Cell Distribution Width 17.8 % (12.1-15.1); White Blood Count 6.53 10^3/uL (3.29-11.43)
[2023-09-14 04:50] LABS: Anion Gap 13.5 (5-19); Blood Urea Nitrogen 12 mg/dL (8-23); Calcium 8.3 mg/dL (8.5-10.5); Carbon Dioxide 24 mmol/L (22-29); Chloride 107 mmol/L (98-107); Creatinine Clr Calc Pharmacy 45.8118; Glucose 162 mg/dL (65-115); Osmolality Calculated 295 mOsm/kg (285-295); Potassium 3.5 mmol/L (3.5-5.1); Sodium 141 mmol/L (136-145)
[2023-09-14] MEDS: sucralfate 1 gm Tablet PO ×2 (06:20→11:49)
[2023-09-14] MEDS: pantoprazole 40 mg SDV IVP (06:20)
[2023-09-14] MEDS: oxyCODONE 5 mg IR Tab/Cap PO ×2 (06:20→12:40)
--- NOTE | 2023-09-14 07:30 | PM.PN ---
Subjective Subjective: infectious disease progress note Since last being seen patient has gone to the OR twice. On 09/11/2023 she underwent I&D and removal of 1 proximal screw. Postop findings note hematoma with necrotic tissue without jong abscess. Subsequently on 09/12/2023 she returned to the OR for removal of all existing deep hardware from the right humerus. Irrigation and debridement was performed down to the level of bone Medications: Reviewed: Yes Vitals/I&O/Wt Last Vital Signs Temp 98.2 F 09/14/23 07:28 Pulse 61 09/14/23 07:28 Resp 15 09/14/23 07:28 BP 163/74 09/14/23 07:28 Pulse Ox 96 09/14/23 07:28 O2 Del Method Simple Mask 09/14/23 07:28 O2 Flow Rate 2 09/13/23 20:00 09/13/23 09/14/23 09/14/23 22:59 06:59 14:59 Intake Total 420 / 720 250 / 970 Output Total 550 / 550 300 / 850 Balance -130 / 170 -50 / 120 Weight last 48 hrs Weight 74.106 kg Weight 72.983 kg Physical Exam Narrative: General: No acute distress, AO x1-2, baseline HEENT: PERRLA, pupils bilaterally equal and reactive, pallors not present Chest: Normal vesicular breath sounds, no added sounds, equal good air entry bilaterally CVS: S1-S2 regular, no murmurs, no tachycardia, no gallops, no rubs Abdomen: Soft, nontender, no organomegaly, bowel sounds present Extremities: Right arm surgical dressing in place with overlying immobilizer Urinary Catheter Management: Smith: Cath Placed During This Visit: yes Reason for Continuing Indwelling Catheter: Acute Urinary Retention or Obstruction Urinary Catheter Date of Insertion: 09/13/23 Urinary Catheter Time of Insertion: 02:36 Data 09/14/23 04:21 09/14/23 04:21 Micro: Microbiology 09/05/23 18:40 Gram Stain - Final Arm - Right Anaerobic Culture - Final Wound Culture - Final 09/11/23 14:37 Gram Stain - Preliminary Tissue Anaerobic Culture - Preliminary Tissue Culture - Preliminary 09/07/23 13:25 Anaerobic Culture - Preliminary Arm - Abscess [id number]: [facility] #: [id number] AGE/SX: 78/F ROOM: [facility] RE09/05/[address]: Farshad Chawla MD : 1945 BED: 1 DIS: FAX #: STATUS: ADM IN TLOC: Spec #: [id number] Markie: 09/07/23-5 Status: COMP Req #: [id number] Recd: 09/07/[address]: Farshad Chawla MD Src: Other Sour SpDesc: Ordered: Body FL Cult&GS Comments: Comment DR POOLE TO COLLECT,FLUID POCKETanterior humerus Procedure Result Verified Site Gram Stain Final 09/07/23-174 Result RARE WHITE BLOOD CELLS NO ORGANISMS SEEN Body Fluid Culture Final 09/10/23-1555 Organism 1 Methicillin Resis Staph Aureus Growth FEW DAY 3 CRITICAL RESULT YES/NO: YES CRITICAL CALLED BY: JOSÉ TO AND READ BACK BY: CAMILLE DATE: 09/10/23 TIME: 1554 MRSA M.I.C. RX --------- ------ * Ampicillin >8 R * Ciprofloxacin >2 R * Clindamycin >4 R * Erythromycin >4 R * Gentamicin <=4 S * Levofloxacin >4 R * Linezolid 4 S * Oxacillin >2 R * Penicillin >8 R * Rifampin <=1 S * Tetracycline <=4 S * Trimethoprim/Sulfamethoxazole <=0.5/9.5 S Vancomycin 2 S Daptomycin 1 S Body Fluid Culture Preliminary (changed) 09/09/23-1108 Organism 1 Coag positive Staphylococcus Growth FEW DAY 2, RESULTS TO FOLLOW Body Fluid Culture Preliminary (changed) 09/08/23-1008 DAY 1, RESULTS TO FOLLOW NAME: Deyanira Gonsales [facility] U #: [id number] AGE/SX: 78/F ROOM: [facility] RE09/05/[address]: Farshad Chawla MD : 1945 BED: 1 DIS: FAX #: STATUS: ADM IN TLOC: Spec #: [id number] Markie: 09/11/231437 Status: RES Req #: [id number] Recd: 09/11/23-[address]: Judit Black MD Src: Tissue SpDesc: Ordered: Tissue Cult GS, Anaer Comments: Comment Right upper arm (hematoma) Procedure Result Verified Site Gram Stain Preliminary 09/12/23-852 Result NO ORGANISMS SEEN NO WHITE BLOOD CELLS DIRECT GRAM STAIN-NO ORGANISMS SEEN-MICROBIOLOGIST WILL REVIEW IN AM Gram Stain Preliminary (changed) 09/11/23-1952 DIRECT GRAM STAIN-NO ORGANISMS SEEN-MICROBIOLOGIST WILL REVIEW IN AM Anaerobic Culture Preliminary 09/13/23-101 NO ANAEROBES ISOLATED DAY 2 Anaerobic Culture Preliminary (changed) 09/12/23-908 NO ANAEROBES ISOLATED DAY 1 Anaerobic Culture Preliminary (changed) 09/12/23-904 NO ANAEROBES ISOLATED DAY 1 Tissue Culture Preliminary 09/13/23-1407 NO GROWTH AT 36-48 HOURS Tissue Culture Preliminary (changed) 09/12/23-1528 NO GROWTH AT 18-24 HOURS A&P Assessment and plan (1) Cellulitis: Qualifiers: Laterality: right Site of cellulitis: extremity Site of cellulitis of extremity: upper extremity Qualified Code(s): L03.113 - Cellulitis of right upper limb (2) Surgical site infection: (3) Encephalopathy acute: (4) Wound infection complicating hardware: (5) Arm abscess: (6) Fracture of proximal humerus: Qualifiers: Encounter type: initial encounter Fracture alignment: displaced Fracture morphology: other fracture Fracture type: closed Laterality: right Qualified Code(s): S42.291A - Other displaced fracture of upper end of right humerus, initial encounter for closed fracture Plan 78-year-old lady with recent history of open reduction internal fixation of right humeral shaft fracture, postop course complicated by development of cellulitis, wound and hardware infection with MRSA Blood cx negative to date CT upon admission with small abscess vs phlegmon From 09/06: IR aspirate cx showing MRSA. No s/p I&D with removal of proximal screw on 09/10, s/p I&D to bone with removal of all hardware on 09/11 Plan: Treat with IV vancomycin with target trough of 15-20 over the next 6 weeks (09/11-10/23) Patient has PICC line to faciltate above at [facility] Weekly creatinine, vancomycin trough, CRP to be faxed to ID clinic while on above treatment follow up in ID clinic at 6 weeks Attestations Medical Necessity Statement*: per admitting Coding Level of Care Code Acute Code for g Fwd Diagnoses Cellulitis L03.113 Laterality: right Site of cellulitis: extremity Site of cellulitis of extremity: upper extremity Surgical site infection T81.49XA Encephalopathy acute G93.40 Wound infection complicating hardware T84.7XXA Arm abscess L02.419 Other closed displaced fracture of proximal end of right humerus, initial encounter S42.291A Encounter type: initial encounter Fracture alignment: displaced Fracture morphology: other fracture Fracture type: closed Laterality: right
[2023-09-14 09:42] LABS: Glucose Point of Care 277 mg/dL (70-110)
[2023-09-14] MEDS: insulin lispro 100 unit/1 mL SUBCUT ×2 (09:42→11:49)
[2023-09-14] MEDS: duloxetine 30 mg Capsule PO (09:43)
[2023-09-14] MEDS: metoprolol tartrate 25 mg Tablet PO (09:43)
[2023-09-14] MEDS: aspirin 81 mg EC Tablet PO (09:43)
[2023-09-14] MEDS: duloxetine 60 mg Capsule PO (09:43)
--- NOTE | 2023-09-14 09:50 | PM.DCS ---
Discharge Providers Date of Admission: 09/05/23 14:01 Date of Discharge: September 14, 2023 Attending Provider at Admission: Farshad Chawla MD Attending Provider at Discharge: Farshad Chawla MD Primary Care Provider: Alem Auguste Diagnoses at Discharge Discharge Diagnosis (1) Cellulitis: Status: Acute Qualifiers: Laterality: right Site of cellulitis: extremity Site of cellulitis of extremity: upper extremity Qualified Code(s): L03.113 - Cellulitis of right upper limb (2) Surgical site infection: Status: Acute (3) Encephalopathy acute: Status: Resolved (4) Wound infection complicating hardware: Status: Acute (5) Arm abscess: Status: Acute (6) Fracture of proximal humerus: Status: Acute Qualifiers: Encounter type: initial encounter Fracture alignment: displaced Fracture morphology: other fracture Fracture type: closed Laterality: right Qualified Code(s): S42.291A - Other displaced fracture of upper end of right humerus, initial encounter for closed fracture Reason for Visit Reason for Visit: Surgical site infection Hospital Course Hospital Course Deyanira Gonsales is a 77 year old female with a past medical history of CAD, history of CABG, CKD, hypertension, sleep apnea, history of stroke, COPD who presents [facility] due to right upper extremity pain, swelling, drainage from surgical site, currently patient is alert to person, to place, not to time she follows all commands, however at times is confused she complains that she is having pain and swelling and tenderness of his right upper extremity, no fevers, chills, no cough, no abdominal pain Patient was admitted to [facility] surgical site infection, cellulitis,status post open reduction internal fixation right humeral shaft fracture CT with IV contrast of surgical site CCESSION #: [id number] [place] [address] IMPRESSION: 1. Small suspected developing abscess or phlegmon in the anterior RIGHT upper arm in the subcutaneous soft tissues extending to the skin. Recommend correlation for overlying cellulitis. 2. RIGHT upper extremity arteries appear patent. 3. If concern for venous SVT or DVT this would be better evaluated with ultrasound. 4. Anterior RIGHT acetabular fracture with callus formation has a chronic appearance. Chronic appearing RIGHT inferior pubic ramus fracture with callus formation. 5. No other new findings. -Admitted for IV antibiotics -IR drainage culture showing MRSA September 07, 2023 -Status post I&D by Dr. Black September 10, 2023 Dr. Martin Procedure done September 12, 2023 1. Removal of deep hardware from right humerus 2. Irrigation debridement down to bone of infected humerus fractureWill undergo surgical intervention today -Monitored thereafter -PICC line in place -Plan is to discharge on 6 weeks of IV antibiotics, vancomycin 1 g every 24 hours IV, stop date 10/22/2023, recheck vancomycin trough Sunday morning, weekly creatinines, weekly vancomycin trough, to be sent to infectious disease clinic Follow-up with Dr. Martin as outpatient For patient's radial nerve palsy, right upper extremity -Continue to receive PT OT as outpatient Patient had anemia during hospitalization, requiring 2 units PRBC, discharged on Protonix, Carafate, follow-up with general surgery as outpatient for consideration of EGD colonoscopy There was also concerns for rash of bilateral lower extremities, concerning for possible Henoch-Renee?nlein purpura -Follow-up IgA levels are elevated -Does have anemia, no complaints abdominal pain -Rash has resolved on discharge, continue to monitor as outpatient Physical Exam Const: COMMON NORMALS: no acute distress ORIENTATION/CONSCIOUSNESS: Yes awake, Yes oriented to person and Yes oriented to place Resp: COMMON NORMALS: normal respiratory effort, No retractions, No use of accessory muscles and clear to auscultation bilaterally AUSCULTATION: clear to auscultation bilaterally Cardio: COMMON NORMALS: regular rate, regular rhythm, S1 normal heart sound present and S2 normal heart sound present RATE: regular rate RHYTHM: regular rhythm HEART SOUNDS: S1 normal heart sound present and S2 normal heart sound present GI: COMMON NORMALS: Normal to inspection, nondistended, normoactive bowel sounds present Extremity: COMMON NORMALS: no pedal edema NARRATIVE EXTREMITY EXAM: Right shoulder, and the binder, right arm wrapped Neuro: SENSORIUM/ORIENTATION: Yes oriented to person and Yes oriented to place Urinary Catheter Management: Smith: Cath Placed During This Visit: yes Reason for Continuing Indwelling Catheter: Acute Urinary Retention or Obstruction Urinary Catheter Date of Insertion: 09/13/23 Urinary Catheter Time of Insertion: 02:36 Discharge Data Studies Completed and Pending Completed Studies During Hospitalization Category Date Time Status CT angio upper extremity right [[place] [address]] Cat Scan 09/05/23 10:[address] head wo con* [id number] Routine Cat Scan 09/08/23 12:41 Completed CXRP [XR chest 1V portable 06691] Routine Exams 09/13/23 14:32 [place] [address] Routine Exams 09/06/23 18:17 Completed US guide [facility] asp a/c/h 50871 Routine Ultrasound 09/07/23 12:47 Completed US soft tissue/extremity 36165 Stat Ultrasound 09/07/23 11:11 Completed US venous duplex upper extremity RT [CV venous duplex Ultrasound 09/05/23 13:59 [place] [address]] Stat Pending at discharge Category Date Time Status C-arm Fluoroscopy 98504 Routine Exams 09/12/23 15:53 Ordered Anaerobic Culture Routine Lab 09/11/23 14:37 Results Anaerobic Culture Stat Lab 09/07/23 13:25 Results Basic Metabolic Panel AM LABS Lab 09/15/23 04:00 Ordered Basic Metabolic Panel AM LABS Lab 09/16/23 04:00 Ordered Complete Blood Count w/Auto AM LABS Lab 09/15/23 04:00 Ordered Complete Blood Count w/Auto AM LABS Lab 09/16/23 04:00 Ordered Leukocyte Reduced RBC Stat Lab 09/12/23 12:08 Results Occult Blood Stool [Immunochemical Fecal OCB] Routine Lab 09/08/23 09:03 Uncollected Tissue Culture and Gram Stain Routine Lab 09/11/23 14:37 Results Type and Screen Stat Lab 09/12/23 12:08 Results Vancomycin Trough Timed Lab 09/15/23 00:30 Ordered Radiology Impressions Upper Extremity CTA 09/05/23 10:06 IMPRESSION: 1. Small suspected developing abscess or phlegmon in the anterior RIGHT upper arm in the subcutaneous soft tissues extending to the skin. Recommend correlation for overlying cellulitis. 2. RIGHT upper extremity arteries appear patent. 3. If concern for venous SVT or DVT this would be better evaluated with ultrasound. 4. Anterior RIGHT acetabular fracture with callus formation has a chronic appearance. Chronic appearing RIGHT inferior pubic ramus fracture with callus formation. 5. No other new findings. Humerus X-Ray 09/06/23 18:17 IMPRESSION: A surgical plate with fixation screws overlies a healing comminuted fracture of the humeral diaphysis. The proximal most screw is visualized separate and medially adjacent to the surgical plate, similar compared to prior CTA chest September 05, 2023. Chronic appearing deformity of the humeral head/neck with degenerative changes of the right shoulder. Soft Tissue Ultrasound 09/07/23 11:11 IMPRESSION: See above Discussed with Dr. Schwartz 09/07/2023 11:53 AM Needle Aspiration US 09/07/23 12:47 IMPRESSION: Uncomplicated ultrasound-guided aspiration of the soft tissue abscess RIGHT upper extremity Head CT 09/08/23 12:41 IMPRESSION: No large territorial infarct or intracranial bleed. Chest X-Ray 09/13/23 14:32 IMPRESSION: PICC line placement as above. Some improvement in the left lower lung opacities. Laboratory Results WBC 6.53 10^3/uL (3.29-11.43) 09/14/23 04:21 Corrected WBC 8.7 10^3/cmm (4.8-10.8) 09/12/23 06:00 RBC 2.82 10^6/uL (3.85-5.65) L 09/14/23 04:21 Hgb 7.40 g/dL (11.27-16.99) L 09/14/23 04:21 Hct 25.0 % (36-47) L 09/14/23 04:21 MCV 88.7 fl (85-98) 09/14/23 04:21 MCH 26.2 pg (27-33) L 09/14/23 04:21 MCHC 29.6 g/dL (30-55) L 09/14/23 04:21 RDW 17.8 % (12.1-15.1) H 09/14/23 04:21 Plt Count 201 10^3/cmm (157-399) 09/14/23 04:21 MPV 8.8 fL (7.4-10.4) 09/14/23 04:21 Gran % Cancelled 09/07/23 09:34 Neut % (Auto) 64.8 % 09/14/23 04:21 Lymph % (Auto) 18.7 % 09/14/23 04:21 [place] % (Auto) 8.7 % 09/14/23 04:21 Eos % (Auto) 3.8 % 09/14/23 04:21 Baso % (Auto) 0.3 % 09/14/23 04:21 Neut # (Auto) 4.23 10^3/uL (1.8-7.7) 09/14/23 04:21 Lymph # (Auto) 1.2 10^3/uL (0.8-4.8) 09/14/23 04:21 [place] # (Auto) 0.6 10^3/uL (0.2-0.9) 09/14/23 04:21 Eos # (Auto) 0.3 10^3/uL (0.0-0.8) 09/14/23 04:21 Baso # (Auto) 0.0 10^3/uL (0.0-0.1) 09/14/23 04:21 Absolute Gran (auto) Cancelled 09/07/23 09:34 Nucleated RBC % (auto) 0.5 % 09/14/23 04:21 Total Counted 100 (0-100) 09/12/23 06:00 Atypical Lymphs % 0.0 % (0-5) 09/12/23 06:00 Absolute Neutrophils 6.2 10^3/cmm (1.4-6.5) 09/12/23 06:00 Segmented Neutrophils 67 % 09/12/23 06:00 Abs Segm Neuts (Man) 6.0 10/cmm (1.6-7.1) 09/12/23 06:00 Band Neutrophils 2.0 % 09/12/23 06:00 Abs Band Neuts (Man) 0.2 10^3/cmm (0.0-1.2) 09/12/23 06:00 Absolute Lymphocytes 1.0 10^3/cmm (1.2-3.4) L 09/12/23 06:00 Lymphocytes (Manual) 11 % 09/12/23 06:00 Monocytes (Manual) 5.0 % 09/12/23 06:00 Absolute Monocytes 0.5 10^3/cmm (0.1-0.6) 09/12/23 06:00 Eosinophils (Manual) 11 % 09/12/23 06:00 Absolute Eosinophils 1.0 10^3/cmm (0.0-0.7) H 09/12/23 06:00 Basophils (Manual) 0.0 % 09/12/23 06:00 Absolute Basophils 0.0 10^3/cmm (0.0-0.2) 09/12/23 06:00 Metamyelocytes 1.0 % 09/12/23 06:00 Myelocytes 3.0 % 09/12/23 06:00 Promyelocytes 1.0 % 09/10/23 13:20 Nucleated RBCs 4.0 /100WBC (0-1) H 09/12/23 06:00 Nucleated RBCs # 0.0 /100WBC 09/14/23 04:21 Platelet Estimate Normal (Normal) 09/12/23 06:00 Anisocytosis 1+ H 09/12/23 06:00 ESR 68 mm/hr (0-15) H 09/05/23 10:02 PT 14.70 SECONDS (12.1-14.9) 09/05/23 10:02 INR 1.11 (0.8-1.2) 09/05/23 10:02 Sodium 141 mmol/L (136-145) 09/14/23 04:21 Potassium 3.5 mmol/L (3.5-5.1) 09/14/23 04:21 Chloride 107 mmol/L (98-107) 09/14/23 04:21 Carbon Dioxide 24 mmol/L (22-29) 09/14/23 04:21 Anion Gap 13.5 (5-19) 09/14/23 04:21 BUN 12 mg/dL (8-23) 09/14/23 04:21 Creatinine 1.0 mg/dL (0.5-0.9) H 09/14/23 04:21 GFR Calculation Not Reportable 09/14/23 04:21 Glucose 162 mg/dL (65-115) H 09/14/23 04:21 POC Glucose 277 mg/dL (70-110) H 09/14/23 09:39 Estimat Average Glucose 163 09/05/23 10:02 Hemoglobin A1c 7.3 % (4.0-6.0) H 09/05/23 10:02 Calculated Osmolality 295 mOsm/kg (285-295) 09/14/23 04:21 Lactic Acid 2.1 mmol/L (0.5-2.2) 09/05/23 10:02 Lactic Acid (Sepsis) 1.2 mmol/L (0.5-2.2) 09/05/23 15:09 Calcium 8.3 mg/dL (8.5-10.5) L 09/14/23 04:21 Phosphorus 2.7 mg/dL (2.5-4.5) 09/09/23 03:24 Magnesium 1.7 mg/dL (1.7-2.3) 09/09/23 03:24 Iron 87 ug/dL (37-145) 09/06/23 06:15 Ferritin 168 ng/mL (15-150) H 09/06/23 06:15 Total Bilirubin 0.7 mg/dL (0.15-1.2) 09/09/23 03:24 AST 28 U/L (0-32) 09/09/23 03:24 ALT 27 U/L (0-33) 09/09/23 03:24 Alkaline Phosphatase 200 U/L (35-105) H 09/09/23 03:24 C-Reactive Protein 69.1 mg/L (0.0-4.9) H 09/09/23 03:24 NT-Pro-B Natriuret Pep 1141 pg/mL (0-450) H 09/05/23 10:02 Total Protein 7.0 g/dL (6.6-8.7) 09/09/23 03:24 Albumin 3.2 g/dL (3.5-5.2) L 09/09/23 03:24 Globulin 3.8 g/dL (1.3-4.6) 09/09/23 03:24 Procalcitonin 0.11 ng/mL (0-0.5) 09/09/23 03:24 TSH 1.66 uIU/mL (0.27-4.20) 09/05/23 10:02 Urine Color Yellow (Yellow) 09/05/23 17:25 Urine Appearance Clear (CLEAR) 09/05/23 17:25 Urine pH 5.0 (5-7) 09/05/23 17:25 Ur Specific [place] 1.050 (1.005-1.030) H 09/05/23 17:25 Urine Protein Negative (Negative) 09/05/23 17:25 Urine Glucose (UA) Negative (Normal) 09/05/23 17:25 Urine Ketones Negative (Negative) 09/05/23 17:25 Urine Blood Negative (Negative) 09/05/23 17:25 Urine Nitrate Negative (Negative) 09/05/23 17:25 Urine Bilirubin Negative (Negative) 09/05/23 17:25 Urine Urobilinogen 1.0 mg/dL (Negative) 09/05/23 17:25 Ur Leukocyte Esterase Negative (Negative) 09/05/23 17:25 Amorphous Sediment Not Reportable 09/05/23 17:25 Vancomycin Trough 20.1 ug/mL (10-15) H 09/11/23 23:55 IgA 471 mg/dL (70-400) H 09/05/23 10:02 KATLYN IFA Animal Tis Res Negative (NEGATIVE) 09/05/23 14:58 CESIA-1 Antibody <1.0 neg AI (<1.0 NEG) 09/05/23 14:58 SS-A Antibody <1.0 neg AI (<1.0 NEG) 09/05/23 14:58 SS-B Antibody <1.0 neg AI (<1.0 NEG) 09/05/23 14:58 Sm ([place]) Antibody <1.0 neg AI (<1.0 NEG) 09/05/23 14:[address] [employer] Antibody 1.6 pos AI (<1.0 NEG) A 09/05/23 14:58 Scl-70 Antibody <1.0 neg AI (<1.0 NEG) 09/05/23 14:58 Anti-ds DNA IgG ([place]) Negative (NEGATIVE) 09/05/23 14:58 Centromere B Antibody <1.0 neg AI (<1.0 NEG) 09/05/23 14:58 Thyroid Peroxidase Ab 1 IU/mL (<9) 09/05/23 14:58 Complement C3c 165 mg/dL (83-193) 09/05/23 14:58 Complement C4c 20 mg/dL (15-57) 09/05/23 14:58 CH50 Classical Pathway >60 U/mL (31-60) H 09/05/23 14:58 SARS-CoV-2 Ag (Rapid) negative (Negative) 09/13/23 12:00 Blood Type O Positive 09/12/23 12:08 Rho(D) Type Rh positive 09/12/23 12:08 Antibody Screen Negative 09/12/23 12:08 Crossmatch See Detail 09/12/23 12:08 Vitals Last Vital Signs Temp 98.2 F 09/14/23 07:28 Pulse 78 09/14/23 07:51 Resp 18 09/14/23 07:51 BP 163/74 09/14/23 07:28 Pulse Ox 98 09/14/23 08:12 O2 Del Method Nasal Cannula 09/14/23 08:12 O2 Flow Rate 2 09/14/23 08:12 Discharge Plan Discharge Patient Disposition: Xfer SNF Condition: Stable Prescriptions: New oxycodone 5 mg tablet 5 mg PO Q8H PRN (Reason: pain) 5 Days Qty: 15 0RF sucralfate 1 gram Tablet 1 g PO Q12H 30 Days Qty: 60 0RF vancomycin 1,000 mg recon soln 1,000 mg IV Q24H 42 Days Qty: 10 0RF Continued (DME) Wrist brace See Rx Instructions .Route .MEDSUPPLY Qty: 1 0RF Rx Instructions: As directed duloxetine 60 mg Capsule, Delayed Rel Sprinkle 60 mg PO DAILY Rx Instructions: Take with 30mg tablet to equal 90mg aspirin [Farzana Low Dose Aspirin] 81 mg tablet,delayed release (DR/EC) 81 mg PO DAILY Qty: 30 0RF atorvastatin 20 mg tablet 20 mg PO BEDTIME albuterol sulfate 2.5 mg /3 mL (0.083 %) solution for nebulization 2.5 mg inhalation Q6H PRN (Reason: Shortness Of Breath) metoprolol tartrate 25 mg tablet 25 mg PO BID duloxetine 30 mg capsule,delayed release(DR/EC) 30 mg PO DAILY Rx Instructions: Take with 60mg tablet to equal 90mg Anoro Ellipta 62.5-25 mcg/actuation blister with device 1 ea INHALATION DAILY furosemide 40 mg tablet 40 mg PO DAILY PRN (Reason: Swelling) Qty: 2 0RF Probiotic 3 billion cell Capsule 3,000 mmu cells PO DAILY PRN (Reason: WHILE ON ANTIBIOTICS) Rx Instructions: administer with a meal hydrocortisone 1 % Cream 1 applic TOPICAL QID PRN (Reason: RASH/ITCH) Benadryl 25 mg Capsule 25 mg PO DAILY MDD MAY REPEAT IN 12 HOURS PRN (Reason: Allergic Reaction) nystatin 100,000 unit/gram powder 1 applic TOPICAL BID PRN (Reason: REDNESS) Miralax 17 gram/dose Powder See Rx Instructions .ROUTE .COMPLEX Rx Instructions: TAKE 17 g BY MOUTH MIXED IN 6 TO 8 OUNCES LIQUID DAILY. Pro-Stat 101 15-101 gram-kcal/30 mL Liquid 1 ea PO DAILY Pulmicort Flexhaler 180 mcg/actuation aerosol powdr breath activated 1 inh inhalation BID Qty: 1 0RF acetaminophen [Tylenol] 325 mg Tablet 650 mg PO Q6H PRN (Reason: pain/fever) alprazolam 0.5 mg tablet 0.5 mg PO BID PRN (Reason: Anxiety) magnesium hydroxide [Milk of Magnesia] 400 mg/5 mL Suspension 30 ml PO DAILY PRN (Reason: Constipation) bisacodyl 10 mg Suppository 10 mg MI DAILY PRN (Reason: Constipation) Fleet Enema 19-7 gram/118 mL Enema 118 ml MI DAILY PRN (Reason: Constipation) docusate sodium [Colace] 100 mg Capsule 100 mg PO DAILY ketoconazole 2 % Shampoo 1 applic TOPICAL .2XWEEKLY PRN (Reason: lather) Changed pantoprazole 40 mg tablet,delayed release (DR/EC) 40 mg PO BID 30 Days Qty: 60 0RF insulin lispro [Humalog KwikPen Insulin] 100 unit/mL insulin pen See Rx Instructions .ROUTE .COMPLEX PRN (Reason: blood sugar) Qty: 15 0RF Rx Instructions: Inject, subcut, 3 times daily, after meals, based on sliding scale provided Discontinued tramadol 50 mg tablet 50 mg PO Q8H PRN (Reason: pain) Qty: 20 0RF methocarbamol 500 mg Tablet 500 mg PO QID PRN (Reason: Muscle Spasms) Qty: 14 0RF linezolid 600 mg tablet 600 mg PO BID insulin glargine [Lantus U-100 Insulin] 100 unit/mL solution 55 unit SUBCUT QPM Discharge Orders: Discharge Order (Routine); Ordered 09/14/23 Ordered By: Farshad Chawla Referrals: Infectious Disease Group [facility] [Provider Group] - 10/30/23 9:30 am [facility] [Outside] Anil Branham MD [Physician] - 2 weeks (GI bleed) Alem Auguste PA [Primary Care Provider] - León Martin DO [Physician] - 2 weeks Discharge Diet: Cardiac Discharge Activity: Resume usual activity Patient Instructions: Acute Wound Care (DC), Opioid Safety, Post Anesthesia Care Activity Restrictions/Additional Instructions: - Vancomycin 1000 mg IV every 24 hours for 6 weeks, vancomycin trough 15-20, stop date 10/23 -Recheck vancomycin trough September 16, 2023 before vancomycin dosing ? Weekly vancomycin troughs, serum creatinine, CRP to be faxed to infectious disease clinic ? Follow-up with Dr. Martin thereafter -Continue PT OT for right hand -Monitor blood sugars closely -Please monitor your blood sugars closely -Monitor your blood sugars 3 times daily as after meals -Please record your blood sugars, and a blood sugar log -For your Humalog -Please inject blood sugar after meals based on sliding scale provided -Do not inject insulin if you do not eat as hypoglycemia kills -This is a Humalog sliding scale -Insulin sliding ?fingerstick? Insulin ?141-180?0 units/sq 181-220?2 units/sq ?221-260?4 units/sq ?261-300 6 units/sq ?301-350?8 units/sq ?351-400 10 units/sq ?401-450?12 units/sq >450? 14units/sq -If your blood sugar is greater than 500 go to the emergency room -If your blood sugar is less than 60 or at anytime you feel lightheaded or dizzy or diaphoretic or have chest palpitations check your blood sugar, and eat a hard candy or drink orange juice and go immediately to the emergency room -Remember hypoglycemia kills, so if his blood sugar is less than 60 we have to increase it by taking in a sugary meal such as a hard candy or orange juice and go to the emergency room -If you have any questions please call us where here to help -For your acute anemia, monitor hemoglobin as outpatient recheck hemoglobin on Sunday -Continue Protonix, for Carafate, follow-up with general surgery for consideration of EGD and colonoscopy in 2 weeks -Use oxycodone sparingly for pain Discharge Attestations Time Spent in Discharge Care*: greater than 30 min Status at Discharge: Cognitive status at discharge: mildly impaired cognition, Behavioral status at discharge: cooperative, Quality Metrics Clinical Quality Measures [ No reported AMI, CVA or VTE this stay] Coding Level of Care Code 34823 Total time (in minutes) for Discharge: 45 Diagnoses Cellulitis L03.113 Laterality: right Site of cellulitis: extremity Site of cellulitis of extremity: upper extremity Surgical site infection T81.49XA Encephalopathy acute G93.40 Wound infection complicating hardware T84.7XXA Arm abscess L02.419 Other closed displaced fracture of proximal end of right humerus, initial encounter S42.291A Encounter type: initial encounter Fracture alignment: displaced Fracture morphology: other fracture Fracture type: closed Laterality: right
--- NOTE | 2023-09-14 10:12 | P.PN_ITS ---
Subjective 2 Subjective: Patient resting comfortably in bed Vitals/I&O/Wt Last Vital Signs Temp 98.2 F 09/14/23 07:28 Pulse 78 09/14/23 07:51 Resp 18 09/14/23 07:51 BP 163/74 09/14/23 07:28 Pulse Ox 98 09/14/23 08:12 O2 Del Method Nasal Cannula 09/14/23 08:12 O2 Flow Rate 2 09/14/23 08:12 09/13/23 09/14/23 09/14/23 22:59 06:59 14:59 Intake Total 420 / 720 250 / 970 120 / 120 Output Total 550 / 550 300 / 850 Balance -130 / 170 -50 / 120 120 / 120 Weight last 48 hrs Weight 163 lb 6 oz Weight 160 lb 14.4 oz Physical Exam 2 Narrative: Patient resting comfortably in bed Zee brace intact. Urinary Catheter Management: Smith: Cath Placed During This Visit: yes Reason for Continuing Indwelling Catheter: Acute Urinary Retention or Obstruction Urinary Catheter Date of Insertion: 09/13/23 Urinary Catheter Time of Insertion: 02:36 Data 09/14/23 04:21 09/14/23 04:21 Micro: Microbiology 09/05/23 18:40 Gram Stain - Final Arm - Right Anaerobic Culture - Final Wound Culture - Final 09/11/23 14:37 Gram Stain - Preliminary Tissue Anaerobic Culture - Preliminary Tissue Culture - Preliminary 09/07/23 13:25 Anaerobic Culture - Preliminary Arm - Abscess A&P Assessment and plan (1) Closed fracture of humerus, shaft: Status post removal of hardware from right humerus and irrigation debridement of humerus. Treat with brace Qualifiers: Encounter type: initial encounter Fracture morphology: other fracture Laterality: right Qualified Code(s): S42.391A - Other fracture of shaft of right humerus, initial encounter for closed fracture Attestations 2 Medical Necessity Statement*: Per primary service Coding Level of Care Code Acute Code for Chg Fwd Diagnoses Other closed fracture of shaft of right humerus, initial encounter S42.391A Encounter type: initial encounter Fracture morphology: other fracture Laterality: right
--- NOTE | 2023-09-14 11:59 | PC.SOCIAL ---
IMM Update pg 2 of IMM updated and reviewed w/ patient. Copy provided and copy dated, initialed and placed in chart.
[2023-09-14 12:01] LABS: Glucose Point of Care 206 mg/dL (70-110)
[2023-09-14] MEDS: sodium chloride 0.9% 100 mL Bag 50 ML IV (12:42)
== END 2023-09-14 15:15 | disposition skilled nursing facility (03) | DRG 464 ==
LOC: ER 12:47 → MEDSURG 14:02
PROVIDERS: Family Medicine; Orthopaedic Surgery; Specialist; Admitting Provider Family Medicine; Emergency Provider Emergency Medicine; PCP Physician Assistant; Visit Provider Family Medicine
PROC: 0JBD0ZZ Excision of Right Upper Arm Subcutaneous Tissue and Fascia, Open Approach (ICD-10-PCS; principal; 2023-09-11 12:30)
PROC: 0PD Upper Bones, Extraction (ICD-10-PCS; principal; 2023-09-12 16:00)
DX: T84.610A Infection and inflammatory reaction due to internal fixation device of right humerus, initial encounter (principal); G93.40 Encephalopathy, unspecified; L02.413 Cutaneous abscess of right upper limb; L03.113 Cellulitis of right upper limb; N17.9 Acute kidney failure, unspecified; B95.62 Methicillin resistant Staphylococcus aureus infection as the cause of diseases classified elsewhere; G56.31 Lesion of radial nerve, right upper limb; D64.89 Other specified anemias; R21 Rash and other nonspecific skin eruption; I25.10 Atherosclerotic heart disease of native coronary artery without angina pectoris; E11.22 Type 2 diabetes mellitus with diabetic chronic kidney disease; I12.9 Hypertensive chronic kidney disease with stage 1 through stage 4 chronic kidney disease, or unspecified chronic kidney disease; N18.30 Chronic kidney disease, stage 3 unspecified; G47.30 Sleep apnea, unspecified; J44.9 Chronic obstructive pulmonary disease, unspecified; F32.A Depression, unspecified; Y79.3 Surgical instruments, materials and orthopedic devices (including sutures) associated with adverse incidents; S42.302D Unspecified fracture of shaft of humerus, left arm, subsequent encounter for fracture with routine healing; X58.XXXD Exposure to other specified factors, subsequent encounter; Z95.1 Presence of aortocoronary bypass graft; Z87.891 Personal history of nicotine dependence; Z79.4 Long term (current) use of insulin; Z86.73 Personal history of transient ischemic attack (TIA), and cerebral infarction without residual deficits; Z79.82 Long term (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
CPT/HCPCS: 10005; 10160; 36415; 36416; 36430; 36573; 36592; 51702; 70450; 71045; 73060; 73206; 76000; 76882; 76942; 80048; 80053; 80202; 81003; 81015; 82728; 82784; 82962; 83036; 83540; 83605; 83735; 83880; 84100; 84145; 84443; 85007; 85014; 85018; 85025; 85610; 85651; 86140; 86160; 86162; 86235; 86255; 86376; 86850; 86900; 86920; 87040; 87070; 87075; 87077; 87176; 87186; 87205; 87426; 93971; 94664; 96365; 96372; 97110; 97162; 97165; 97530; 97535; 97760; 99285; A4565; J1100; J1650; J1815; J2270; J2470; J2543; J2704; J2795; J3010; J3370; J7030; J7050; L3980; P9016; Q9967

== ENCOUNTER → 2023-09-18 10:24 | Outpatient (BNVA) | payer MEDICARE, MEDICAID, SELFPAY | PROVIDERS: PCP Physician Assistant; Visit Provider Orthopaedic Surgery | DX: S42.391D Other fracture of shaft of right humerus, subsequent encounter for fracture with routine healing (principal); X58.XXXD Exposure to other specified factors, subsequent encounter | CPT/HCPCS: 73060; 99024 ==

== ENCOUNTER 2023-09-18 11:53 | Outpatient (CLI) | payer MEDICARE, MEDICAID, SELFPAY | END 2023-09-18 11:54 | disposition home or self-care (01) | LOC: SPT 11:53 | PROVIDERS: PCP Physician Assistant; Visit Provider Orthopaedic Surgery | DX: Z46.89 Encounter for fitting and adjustment of other specified devices (principal); M21.331 Wrist drop, right wrist | CPT/HCPCS: 97760; L3908 ==

== ENCOUNTER → 2023-10-03 15:10 | Outpatient (BNVA) | payer MEDICARE, MEDICAID, SELFPAY | PROVIDERS: PCP Physician Assistant; Visit Provider Surgery | DX: D64.9 Anemia, unspecified (principal) | CPT/HCPCS: 99203 ==

== ENCOUNTER → 2023-10-04 15:08 | Outpatient (BNVA) | payer MEDICARE, MEDICAID, SELFPAY | PROVIDERS: PCP Physician Assistant; Visit Provider Orthopaedic Surgery | DX: S42.391A Other fracture of shaft of right humerus, initial encounter for closed fracture (principal); X58.XXXA Exposure to other specified factors, initial encounter | CPT/HCPCS: 73060; 99024 ==

== ENCOUNTER → 2023-10-30 13:03 | Outpatient (BNVA) | payer MEDICARE, MEDICAID, SELFPAY | PROVIDERS: PCP Physician Assistant; Visit Provider Orthopaedic Surgery | DX: S42.391A Other fracture of shaft of right humerus, initial encounter for closed fracture (principal); X58.XXXA Exposure to other specified factors, initial encounter | CPT/HCPCS: 73060; 99024 ==

== ENCOUNTER 2023-10-30 14:04 | Outpatient (CLI) | payer MEDICARE, MEDICAID, SELFPAY | END 2023-10-30 14:05 | disposition home or self-care (01) | LOC: SOT 14:25 | PROVIDERS: PCP Physician Assistant; Visit Provider Family Medicine | DX: G56.31 Lesion of radial nerve, right upper limb (principal) | CPT/HCPCS: 97760; L3766 ==

== ENCOUNTER → 2023-11-27 09:36 | Outpatient (BNVA) | payer MEDICARE, MEDICAID, SELFPAY | PROVIDERS: PCP Physician Assistant; Visit Provider Student in an Organized Health Care Education/Training Program | DX: T84.7XXA Infection and inflammatory reaction due to other internal orthopedic prosthetic devices, implants and grafts, initial encounter (principal); X58.XXXA Exposure to other specified factors, initial encounter | CPT/HCPCS: 99204 ==

== ENCOUNTER → 2023-12-11 13:04 | Outpatient (BNVA) | payer MEDICARE, MEDICAID, SELFPAY | PROVIDERS: PCP Physician Assistant; Visit Provider Orthopaedic Surgery | DX: M25.511 Pain in right shoulder (principal) | CPT/HCPCS: 73060; 99024 ==

== ENCOUNTER → 2024-03-13 14:11 | Outpatient (BNVA) | payer MEDICARE, MEDICAID, SELFPAY | PROVIDERS: PCP Physician Assistant; Visit Provider Orthopaedic Surgery | DX: S42.391A Other fracture of shaft of right humerus, initial encounter for closed fracture (principal); X58.XXXA Exposure to other specified factors, initial encounter | CPT/HCPCS: 73060; 99213 ==

== ENCOUNTER 2024-03-21 23:50 | Emergency (ER) | payer MEDICARE, MEDICAID, SELFPAY ==
[2024-03-21 23:57] VITALS: BP 121/60; PULSE 76; RESP 20; TEMP 36.6; O2SAT 93; BMI 35.4
--- NOTE | 2024-03-22 00:10 | XRR_ITS ---
PROCEDURE INFORMATION: Exam: XR Right Wrist Exam date and time: 03/22/2024 12:25 AM Age: 78 years old Clinical indication: Injury or trauma; Blunt trauma (contusions or hematomas); Right; EMS arrival from care home for fall. C/O RT wrist pain. TECHNIQUE: Imaging protocol: Radiologic exam of the right wrist. Views: 3 or more views. COMPARISON: No relevant prior studies available. FINDINGS: Bones/joints: The bones are demineralized but are intact. No fracture or avascular necrosis. Soft tissues: Normal. XR/XR wrist RT min 3V* [id number] IMPRESSION: No acute findings.
--- NOTE | 2024-03-22 00:10 | XRR_ITS ---
PROCEDURE INFORMATION: Exam: XR Bilateral Hips Exam date and time: 03/22/2024 12:12 AM Age: 78 years old Clinical indication: Injury or trauma; Blunt trauma (contusions or hematomas); Prior surgery; Surgery date: 6+ months; Surgery type: Bladder. Appy; [facility]. C/O bilateral hip pain RT worse than left. ; Additional info: Trauma; One view pelvis too please TECHNIQUE: Imaging protocol: Radiologic exam of the bilateral hips. Views: 2 views of hips with pelvis when performed. COMPARISON: CR XR pelvis 1-2V* [id number] 07/16/2023 4:35 PM FINDINGS: Bones/joints: New sclerosis in the right inferior pubic ramus. This is most suggestive of a healing fracture but is new since 07/16/2023. Proximal femurs are intact. Soft tissues: Unremarkable. XR/XR hip BI 3-4V wo/w pel [id number] IMPRESSION: 1. Healing fracture of the right inferior pubic ramus, new since July of 2023 2. Overall exam quality is limited by body habitus and radiographic penetration. 3. Proximal femurs are intact.
--- NOTE | 2024-03-22 00:12 | ED_ITS ---
Documented by User: DOROTEO Martinez 03/22/24 00:56 HPI - Fall 2 General: Chief Complaint: Fall Stated Complaint: Fall Time Seen by Provider: 03/21/24 23:52 Source: patient and EMS Mode of arrival: EMS Limitations: no limitations History of Present Illness: Patient is a 78-year-old female presents to ED today via EMS for evaluation following a fall that occurred earlier today. Patient states she tripped over her oxygen cord although triage note/EMS report states that she tripped over a refrigerator cord. Patient states she landed onto her right side. She is complaining of right wrist pain and pain to her groin. Overall patient is a pretty poor historian. She was not really able to tell me whether she could ambulate following the fall. She states at some point a friend came to her home and helped her up into bed and later called an ambulance. She denies striking her head or LOC. She is not having any neck or back pain. MD complaint: fall Onset (ago): hour(s) Fall from: standing Fall witnessed: no Place fall occurred: home Loss of consciousness: None Context: tripped/slipped Associated symptoms-after fall: Reports difficulty walking; Denies abdominal pain, chest pain or headache(s) Related Data Home Medications ?Medication ?Instructions ?Recorded ?Confirmed duloxetine 60 mg capsule,delayed 60 mg PO DAILY 03/13/24 release sprinkle albuterol sulfate 2.5 mg/3 mL 2.5 mg inhalation Q6H LA N 07/16/23 03/13/24 (0.083 %) solution for nebulization Shortness Of Breat h atorvastatin 20 mg tablet 20 mg PO BEDTIME 07/16/23 duloxetine 30 mg capsule,delayed 30 mg PO DAILY 03/13/24 release metoprolol tartrate 25 mg tablet 25 mg PO BID 07/16/23 03/13/24 umeclidinium 62.5 mcg-vilanterol 1 ea inhalation DAILY 07/16/23 03/13/24 25 mcg/actuation powdr for inhalation (Anoro Ellipta) acetaminophen 325 mg tablet 650 mg PO Q6H PRN pain/fev er 08/03/23 03/13/24 (Tylenol) alprazolam 0.5 mg tablet 0.5 mg PO BID PRN Anxiety 03/13/24 bisacodyl 10 mg rectal suppository 10 mg LA DAILY PRN Constipation 08/03/23 03/13/24 docusate sodium 100 mg capsule 100 mg PO DAILY 2 4 03/13/24 (Colace) ketoconazole 2 % shampoo 1 applic topical .2XWEEKLY P RN 08/03/23 03/13/24 lather magnesium hydroxide 400 mg/5 mL 30 ml PO DAILY PRN Con stipation 08/03/23 03/13/24 oral suspension (Milk of Magnesia) sodium phosphates 19 gram-7 118 ml LA DAILY PRN Consti pation 08/03/23 03/13/24 gram/118 mL enema (Fleet Enema) amino acids-protein hydrolysate 15 1 ea PO DAILY 09/0403/13/24 gram-101 kcal/30 mL oral liquid diphenhydramine HCl 25 mg capsule 25 mg PO DAILY PRN A llergic 09/05/23 03/13/24 (Benadryl) Reaction hydrocortisone 1 % topical cream 1 applic topical QID PRN RASH/ITCH 09/05/23 03/13/24 lactobacillus combination no.4 3 3,000 mmu cells PO DA ALEXANDRE PRN WHILE 09/05/23 03/13/24 billion cell capsule (Probiotic) ON ANTIBIOTICS nystatin 100,000 unit/gram topical 1 applic topical BI D PRN REDNESS 09/05/23 03/13/24 powder polyethylene glycol 3350 17 See Rx Instructions .Route .COMPLEX 09/05/23 03/13/24 gram/dose oral powder (Miralax) Previous Rx's ?Medication ?Instructions ?Recorded aspirin 81 mg tablet,delayed 81 mg PO DAILY #30 tabs 0 06/25/19 release (Farzana Low Dose Aspirin) budesonide 180 mcg/actuation 1 inh inhalation BID #1 e a 12/20/21 breath activated powder inhaler (Pulmicort Flexhaler) furosemide 40 mg tablet 40 mg PO DAILY PRN Swelling #2 tabs 07/19/23 Wrist brace #1 ea 08/07/23 insulin lispro 100 unit/mL See Rx Instructions .Route 09/14/23 subcutaneous pen (Humalog KwikPen .COMPLEX PRN blood s ugar #15 mL (U-100) Insulin) pantoprazole 40 mg tablet,delayed 40 mg PO BID 30 days #60 tabs 09/14/23 release cock up splint right wrist. #1 ea 09/18/23 radial palsy brace, right #1 ea 10/17/23 doxycycline hyclate 100 mg capsule 100 mg PO BID 2 wemary ks #28 caps 10/26/23 tramadol 50 mg tablet 50 mg PO Q8H PRN pain #30 ta bs 03/22/24 Allergies Allergy/AdvReac Type Severity Reaction Status Date / Time acetaminophen (From Vicodin) Allergy ADR-Confusi Verified 11/27/23 09:50 on cephalexin Allergy ALGY-Hives Verified 11/27/23 09:50 fluticasone (From Advair Allergy Unknown Verified 11/27/23 09:50 Diskus) hydrocodone (From Vicodin) Allergy ADR-Confusi Verified 11/27/23 09:50 on nitrofurantoin (From Allergy ALGY-Hives Verified 11/27/23 09:50 Macrobid) salmeterol (From Advair Allergy Unknown Verified 11/27/23 09:50 Diskus) Review of Systems 2 Const: Denies: fever(s), chills, body aches, fatigue or malaise Card: Denies: chest pain Resp: Denies: dyspnea GI: Denies: abdominal pain Musc: Reports: joint pain (R wrist) and other (states her groin hurts) Neuro: Reports: difficulty walking; Denies: headache(s) PFSH ED 2 PFSH: Medical History Hypertension Obstructive sleep apnea intolerant of cpap Coronary artery disease CKD (chronic kidney disease) stage 3, GFR 30-59 ml/min Pneumonia Stroke Coffee ground emesis 2021 Nephrolithiasis Peripheral neuropathy Depression Diabetes mellitus type 2 in obese COPD (chronic obstructive pulmonary disease) Chronically uses 2 L per nasal cannula Surgical History History of ankle surgery History of cataract surgery History of bladder surgery History of carpal tunnel surgery History of shoulder surgery History of appendectomy Hx of CABG 2004 Family History Other Dementia Social History (Reviewed 03/22/24 @ 00:44 by LEONIE Martinez Smoking and tobacco/nicotine status: never used tobacco/nicotine Quit status (tobacco/nicotine): has quit using Year quit tobacco: 12/2022 Alcohol intake: never Substance/Drug Use: never Physical Exam 2 Const: COMMON NORMALS: no acute distress, average body habitus, no limitations, alert and well nourished GENERAL APPEARANCE: cooperative O RIENTATION/CONSCIOUSNESS: Yes awake, Yes oriented to person and Yes oriented to place HENMT: COMMON NORMALS: normocephalic and atraumatic HEAD & SCALP: normal to inspection, normocephalic and atraumatic FACE & SINUS: normal facial exam Neck/C-Spine: COMMON NORMALS: full ROM GENERAL: Yes normal visual inspection CERVICAL SPINE: No pain with cervical ROM and No Cervical spine tenderness Chest: COMMONS NORMALS: normal inspection of the chest and normal palpation of entire chest wall Resp: COMMON NORMALS: normal respiratory effort and clear to auscultation bilaterally AUSCULTATION: clear to auscultation bilaterally Cardio: COMMON NORMALS: regular rate and regular rhythm RATE: regular rate RHYTHM: regular rhythm GI: COMMON NORMALS: Normal to inspection, nondistended, normoactive bowel sounds present, Soft to palpation and non-tender PALPATION: Yes Soft to palpation : COMMON NORMALS: Yes no CVA tenderness BLADDER/KIDNEY EXAM: Yes no CVA tenderness Back/Pelvis: COMMON NORMALS: no CVA tenderness, thoracic and lumbar spine normal to inspection and no thoracic nor lumbar tenderness Extremity: GENERAL: Yes normal exam except as noted RIGHT UPPER EXTREMITY: Yes wrist (pain/mild edema R wrist) Right wrist: Yes neurovascular exam (normal) RIGHT LOWER EXTREMITY: Yes hip joint LEFT LOWER EXTREMITY: Yes hip joint OTHER: pain near her groin; no external signs of trauma appreciated; no obvious deformity/shortening/rotation noted to her hips Neuro: COMMON NORMALS: moves all extremities, no focal motor deficits and no sensory deficits noted SENSORIUM/ORIENTATION: Yes alert, Yes oriented to person and Yes oriented to place GAIT: Yes Unable to assess gait Skin: COMMON NORMALS: no rashes or lesions noted GENERAL SKIN EXAM: no rashes or lesions noted Course 2 ED course: Reviewed XRs with Dr. Ashby. We will obtain CT bony pelvis. Care transferred to him as my shift is ending. Will also obtain labs. ES Vital Signs: Vital signs: Vital Signs Temperature 98 F 02/14/25 23:57 Pulse Rate 76 03/21/24 23:57 Respiratory Rate 20 H 03/21/24 23:57 Blood Pressure 121/60 03/21/24 23:57 Pulse Oximetry 93 03/21/24 23:57 MDM - Fall Lab Data 03/22/24 01:42 03/22/24 01:42 Radiology Impressions Hip/Pelvis X-Ray 03/22/24 00:10 IMPRESSION: 1. Healing fracture of the right inferior pubic ramus, new since July of 2023 2. Overall exam quality is limited by body habitus and radiographic penetration. 3. Proximal femurs are intact. Wrist X-Ray 03/22/24 00:10 IMPRESSION: No acute findings. Pelvis CT 03/22/24 00:55 IMPRESSION: No acute findings. Laboratory Results WBC 7.02 10^3/uL (3.29-11.43) 03/22/24 01:42 RBC 4.82 10^6/uL (3.85-5.65) 03/22/24 01:42 Hgb 13.00 g/dL (11.27-16.99) 03/22/24 01:42 Hct 43.3 % (36-47) 03/22/24 01:42 MCV 89.8 fl (85-98) 03/22/24 01:42 MCH 27.0 pg (27-33) 03/22/24 01:42 MCHC 30.0 g/dL (30-55) 03/22/24 01:42 RDW 16.3 % (12.1-15.1) H 03/22/24 01:42 Plt Count 165 10^3/cmm (157-399) 03/22/24 01:42 MPV 8.8 fL (7.4-10.4) 03/22/24 01:42 Neut % (Auto) 62.6 % 03/22/24 01:42 Lymph % (Auto) 20.8 % 03/22/24 01:42 [place] % (Auto) 10.1 % 03/22/24 01:42 Eos % (Auto) 4.6 % 03/22/24 01:42 Baso % (Auto) 0.6 % 03/22/24 01:42 Neut # (Auto) 4.40 10^3/uL (1.8-7.7) 03/22/24 01:42 Lymph # (Auto) 1.5 10^3/uL (0.8-4.8) 03/22/24 01:42 [place] # (Auto) 0.7 10^3/uL (0.2-0.9) 03/22/24 01:42 Eos # (Auto) 0.3 10^3/uL (0.0-0.8) 03/22/24 01:42 Baso # (Auto) 0.0 10^3/uL (0.0-0.1) 03/22/24 01:42 Nucleated RBC % (auto) 0 % 03/22/24 01:42 Nucleated RBCs # 0.0 /100WBC 03/22/24 01:42 Discharge Plan Discharge Patient Disposition: Home Clinical Impression: Groin strain Qualifiers: Encounter type: initial encounter Laterality: unspecified laterality Qualified Code(s): S76.219A - Strain of adductor muscle, fascia and tendon of unspecified thigh, initial encounter Condition: Stable Prescriptions: New tramadol 50 mg tablet 50 mg PO Q8H PRN (Reason: pain) Qty: 30 0RF No Action (DME) Wrist brace See Rx Instructions .Route .MEDSUPPLY Qty: 1 0RF Rx Instructions: As directed (DME) cock up splint right wrist. See Rx Instructions .Route .MEDSUPPLY Qty: 1 0RF Rx Instructions: As directed (DME) radial palsy brace, right See Rx Instructions .Route .MEDSUPPLY Qty: 1 0RF Rx Instructions: As directed doxycycline hyclate 100 mg capsule 100 mg PO BID 14 Days Qty: 28 0RF duloxetine 60 mg Capsule, Delayed Rel Sprinkle 60 mg PO DAILY Rx Instructions: Take with 30mg tablet to equal 90mg aspirin [Farzana Low Dose Aspirin] 81 mg tablet,delayed release (DR/EC) 81 mg PO DAILY Qty: 30 0RF atorvastatin 20 mg tablet 20 mg PO BEDTIME albuterol sulfate 2.5 mg /3 mL (0.083 %) solution for nebulization 2.5 mg inhalation Q6H PRN (Reason: Shortness Of Breath) metoprolol tartrate 25 mg tablet 25 mg PO BID duloxetine 30 mg capsule,delayed release(DR/EC) 30 mg PO DAILY Rx Instructions: Take with 60mg tablet to equal 90mg Anoro Ellipta 62.5-25 mcg/actuation blister with device 1 ea INHALATION DAILY furosemide 40 mg tablet 40 mg PO DAILY PRN (Reason: Swelling) Qty: 2 0RF Probiotic 3 billion cell Capsule 3,000 mmu cells PO DAILY PRN (Reason: WHILE ON ANTIBIOTICS) Rx Instructions: administer with a meal hydrocortisone 1 % Cream 1 applic TOPICAL QID PRN (Reason: RASH/ITCH) Benadryl 25 mg Capsule 25 mg PO DAILY MDD MAY REPEAT IN 12 HOURS PRN (Reason: Allergic Reaction) nystatin 100,000 unit/gram powder 1 applic TOPICAL BID PRN (Reason: REDNESS) Miralax 17 gram/dose Powder See Rx Instructions .ROUTE .COMPLEX Rx Instructions: TAKE 17 g BY MOUTH MIXED IN 6 TO 8 OUNCES LIQUID DAILY. amino acids-protein hydrolys 15-101 gram-kcal/30 mL Liquid 1 ea PO DAILY pantoprazole 40 mg tablet,delayed release (DR/EC) 40 mg PO BID 30 Days Qty: 60 0RF Humalog KwikPen Insulin 100 unit/mL insulin pen See Rx Instructions .ROUTE .COMPLEX PRN (Reason: blood sugar) Qty: 15 0RF Rx Instructions: Inject, subcut, 3 times daily, after meals, based on sliding scale provided Pulmicort Flexhaler 180 mcg/actuation aerosol powdr breath activated 1 inh inhalation BID Qty: 1 0RF acetaminophen [Tylenol] 325 mg Tablet 650 mg PO Q6H PRN (Reason: pain/fever) alprazolam 0.5 mg tablet 0.5 mg PO BID PRN (Reason: Anxiety) magnesium hydroxide [Milk of Magnesia] 400 mg/5 mL Suspension 30 ml PO DAILY PRN (Reason: Constipation) bisacodyl 10 mg Suppository 10 mg LA DAILY PRN (Reason: Constipation) Fleet Enema 19-7 gram/118 mL Enema 118 ml LA DAILY PRN (Reason: Constipation) docusate sodium [Colace] 100 mg Capsule 100 mg PO DAILY ketoconazole 2 % Shampoo 1 applic TOPICAL .2XWEEKLY PRN (Reason: lather) Discharge Orders: Discharge ED (Routine); Ordered 03/22/24 Ordered By: Drew Ashby Referrals: Alem Auguste PA [Primary Care Provider] - Patient Instructions: Groin Strain (ED), Opioid Safety, Pain Management Print Language: Citizen Of [place] Coding Level of Care Code ED Professional Bass Fisherman for Chg Fwd Documented by User: Drew Ashby MD 03/22/24 01:56 HPI - Fall 2 General: Chief Complaint: Fall Stated Complaint: Fall Time Seen by Provider: 03/21/24 23:52 Related Data Home Medications ?Medication ?Instructions ?Recorded ?Confirmed duloxetine 60 mg capsule,delayed 60 mg PO DAILY 03/13/24 release sprinkle albuterol sulfate 2.5 mg/3 mL 2.5 mg inhalation Q6H LA N 07/16/23 03/13/24 (0.083 %) solution for nebulization Shortness Of Breat h atorvastatin 20 mg tablet 20 mg PO BEDTIME 07/16/23 duloxetine 30 mg capsule,delayed 30 mg PO DAILY 03/13/24 release metoprolol tartrate 25 mg tablet 25 mg PO BID 07/16/23 03/13/24 umeclidinium 62.5 mcg-vilanterol 1 ea inhalation DAILY 07/16/23 03/13/24 25 mcg/actuation powdr for inhalation (Anoro Ellipta) acetaminophen 325 mg tablet 650 mg PO Q6H PRN pain/fev er 08/03/23 03/13/24 (Tylenol) alprazolam 0.5 mg tablet 0.5 mg PO BID PRN Anxiety 03/13/24 bisacodyl 10 mg rectal suppository 10 mg LA DAILY PRN Constipation 08/03/23 03/13/24 docusate sodium 100 mg capsule 100 mg PO DAILY 4 03/13/24 (Colace) ketoconazole 2 % shampoo 1 applic topical .2XWEEKLY P RN 08/03/23 03/13/24 lather magnesium hydroxide 400 mg/5 mL 30 ml PO DAILY PRN Con stipation 08/03/23 03/13/24 oral suspension (Milk of Magnesia) sodium phosphates 19 gram-7 118 ml LA DAILY PRN Consti pation 08/03/23 03/13/24 gram/118 mL enema (Fleet Enema) amino acids-protein hydrolysate 15 1 ea PO DAILY 09/0403/13/24 gram-101 kcal/30 mL oral liquid diphenhydramine HCl 25 mg capsule 25 mg PO DAILY PRN A llergic 09/05/23 03/13/24 (Benadryl) Reaction hydrocortisone 1 % topical cream 1 applic topical QID PRN RASH/ITCH 09/05/23 03/13/24 lactobacillus combination no.4 3 3,000 mmu cells PO DA ALEXANDRE PRN WHILE 09/05/23 03/13/24 billion cell capsule (Probiotic) ON ANTIBIOTICS nystatin 100,000 unit/gram topical 1 applic topical BI D PRN REDNESS 09/05/23 03/13/24 powder polyethylene glycol 3350 17 See Rx Instructions .Route .COMPLEX 09/05/23 03/13/24 gram/dose oral powder (Miralax) Previous Rx's ?Medication ?Instructions ?Recorded aspirin 81 mg tablet,delayed 81 mg PO DAILY #30 tabs 0 06/25/19 release (Farzana Low Dose Aspirin) budesonide 180 mcg/actuation 1 inh inhalation BID #1 e a 12/20/21 breath activated powder inhaler (Pulmicort Flexhaler) furosemide 40 mg tablet 40 mg PO DAILY PRN Swelling #2 tabs 07/19/23 Wrist brace #1 ea 08/07/23 insulin lispro 100 unit/mL See Rx Instructions .Route 09/14/23 subcutaneous pen (Humalog KwikPen .COMPLEX PRN blood s ugar #15 mL (U-100) Insulin) pantoprazole 40 mg tablet,delayed 40 mg PO BID 30 days #60 tabs 09/14/23 release cock up splint right wrist. #1 ea 09/18/23 radial palsy brace, right #1 ea 10/17/23 doxycycline hyclate 100 mg capsule 100 mg PO BID 2 wee ks #28 caps 10/26/23 tramadol 50 mg tablet 50 mg PO Q8H PRN pain #30 ta bs 03/22/24 Allergies Allergy/AdvReac Type Severity Reaction Status Date / Time acetaminophen (From Vicodin) Allergy ADR-Confusi Verified 11/27/23 09:50 on cephalexin Allergy ALGY-Hives Verified 11/27/23 09:50 fluticasone (From Advair Allergy Unknown Verified 11/27/23 09:50 Diskus) hydrocodone (From Vicodin) Allergy ADR-Confusi Verified 11/27/23 09:50 on nitrofurantoin (From Allergy ALGY-Hives Verified 11/27/23 09:50 Macrobid) salmeterol (From Advair Allergy Unknown Verified 11/27/23 09:50 Diskus) PFSH ED 2 PFSH: Medical History Hypertension Obstructive sleep apnea intolerant of cpap Coronary artery disease CKD (chronic kidney disease) stage 3, GFR 30-59 ml/min Pneumonia Stroke Coffee ground emesis 2021 Nephrolithiasis Peripheral neuropathy Depression Diabetes mellitus type 2 in obese COPD (chronic obstructive pulmonary disease) Chronically uses 2 L per nasal cannula Surgical History History of ankle surgery History of cataract surgery History of bladder surgery History of carpal tunnel surgery History of shoulder surgery History of appendectomy Hx of CABG 2004 Family History Other Dementia Social History Smoking and tobacco/nicotine status: never used tobacco/nicotine Quit status (tobacco/nicotine): has quit using Year quit tobacco: 12/2022 Alcohol intake: never Substance/Drug Use: never Course 2 Vital Signs: Vital signs: Vital Signs Temperature 98 F 03/21/24 23:57 Pulse Rate 76 03/21/24 23:57 Respiratory Rate 20 H 03/21/24 23:57 Blood Pressure 121/60 03/21/24 23:57 Pulse Oximetry 93 03/21/24 23:57 MDM - Fall Medical Decision Making CT of the pelvis was read by the radiologist as normal. Patient was given 0.5 mg of Dilaudid IV. She states she is well enough to go home. I did prescribe tramadol. She likely has a groin strain. Recommended she follow-up with her primary care physician next week for recheck. She was discharged in stable condition. Lab Data 03/22/24 01:42 03/22/24 01:42 Radiology Impressions Hip/Pelvis X-Ray 03/22/24 00:10 IMPRESSION: 1. Healing fracture of the right inferior pubic ramus, new since July of 2023 2. Overall exam quality is limited by body habitus and radiographic penetration. 3. Proximal femurs are intact. Wrist X-Ray 03/22/24 00:10 IMPRESSION: No acute findings. Pelvis CT 03/22/24 00:55 IMPRESSION: No acute findings. Laboratory Results WBC 7.02 10^3/uL (3.29-11.43) 03/22/24 01:42 RBC 4.82 10^6/uL (3.85-5.65) 03/22/24 01:42 Hgb 13.00 g/dL (11.27-16.99) 03/22/24 01:42 Hct 43.3 % (36-47) 03/22/24 01:42 MCV 89.8 fl (85-98) 03/22/24 01:42 MCH 27.0 pg (27-33) 03/22/24 01:42 MCHC 30.0 g/dL (30-55) 03/22/24 01:42 RDW 16.3 % (12.1-15.1) H 03/22/24 01:42 Plt Count 165 10^3/cmm (157-399) 03/22/24 01:42 MPV 8.8 fL (7.4-10.4) 03/22/24 01:42 Neut % (Auto) 62.6 % 03/22/24 01:42 Lymph % (Auto) 20.8 % 03/22/24 01:42 [place] % (Auto) 10.1 % 03/22/24 01:42 Eos % (Auto) 4.6 % 03/22/24 01:42 Baso % (Auto) 0.6 % 03/22/24 01:42 Neut # (Auto) 4.40 10^3/uL (1.8-7.7) 03/22/24 01:42 Lymph # (Auto) 1.5 10^3/uL (0.8-4.8) 03/22/24 01:42 [place] # (Auto) 0.7 10^3/uL (0.2-0.9) 03/22/24 01:42 Eos # (Auto) 0.3 10^3/uL (0.0-0.8) 03/22/24 01:42 Baso # (Auto) 0.0 10^3/uL (0.0-0.1) 03/22/24 01:42 Nucleated RBC % (auto) 0 % 03/22/24 01:42 Nucleated RBCs # 0.0 /100WBC 03/22/24 01:42 All radiology interpretation(s) finalized by discharge Discharge Plan Discharge Patient Disposition: Home Clinical Impression: Groin strain Qualifiers: Encounter type: initial encounter Laterality: unspecified laterality Qualified Code(s): S76.219A - Strain of adductor muscle, fascia and tendon of unspecified thigh, initial encounter Condition: Stable Prescriptions: New tramadol 50 mg tablet 50 mg PO Q8H PRN (Reason: pain) Qty: 30 0RF No Action (DME) Wrist brace See Rx Instructions .Route .MEDSUPPLY Qty: 1 0RF Rx Instructions: As directed (DME) cock up splint right wrist. See Rx Instructions .Route .MEDSUPPLY Qty: 1 0RF Rx Instructions: As directed (DME) radial palsy brace, right See Rx Instructions .Route .MEDSUPPLY Qty: 1 0RF Rx Instructions: As directed doxycycline hyclate 100 mg capsule 100 mg PO BID 14 Days Qty: 28 0RF duloxetine 60 mg Capsule, Delayed Rel Sprinkle 60 mg PO DAILY Rx Instructions: Take with 30mg tablet to equal 90mg aspirin [Farzana Low Dose Aspirin] 81 mg tablet,delayed release (DR/EC) 81 mg PO DAILY Qty: 30 0RF atorvastatin 20 mg tablet 20 mg PO BEDTIME albuterol sulfate 2.5 mg /3 mL (0.083 %) solution for nebulization 2.5 mg inhalation Q6H PRN (Reason: Shortness Of Breath) metoprolol tartrate 25 mg tablet 25 mg PO BID duloxetine 30 mg capsule,delayed release(DR/EC) 30 mg PO DAILY Rx Instructions: Take with 60mg tablet to equal 90mg Anoro Ellipta 62.5-25 mcg/actuation blister with device 1 ea INHALATION DAILY furosemide 40 mg tablet 40 mg PO DAILY PRN (Reason: Swelling) Qty: 2 0RF Probiotic 3 billion cell Capsule 3,000 mmu cells PO DAILY PRN (Reason: WHILE ON ANTIBIOTICS) Rx Instructions: administer with a meal hydrocortisone 1 % Cream 1 applic TOPICAL QID PRN (Reason: RASH/ITCH) Benadryl 25 mg Capsule 25 mg PO DAILY MDD MAY REPEAT IN 12 HOURS PRN (Reason: Allergic Reaction) nystatin 100,000 unit/gram powder 1 applic TOPICAL BID PRN (Reason: REDNESS) Miralax 17 gram/dose Powder See Rx Instructions .ROUTE .COMPLEX Rx Instructions: TAKE 17 g BY MOUTH MIXED IN 6 TO 8 OUNCES LIQUID DAILY. amino acids-protein hydrolys 15-101 gram-kcal/30 mL Liquid 1 ea PO DAILY pantoprazole 40 mg tablet,delayed release (DR/EC) 40 mg PO BID 30 Days Qty: 60 0RF Humalog KwikPen Insulin 100 unit/mL insulin pen See Rx Instructions .ROUTE .COMPLEX PRN (Reason: blood sugar) Qty: 15 0RF Rx Instructions: Inject, subcut, 3 times daily, after meals, based on sliding scale provided Pulmicort Flexhaler 180 mcg/actuation aerosol powdr breath activated 1 inh inhalation BID Qty: 1 0RF acetaminophen [Tylenol] 325 mg Tablet 650 mg PO Q6H PRN (Reason: pain/fever) alprazolam 0.5 mg tablet 0.5 mg PO BID PRN (Reason: Anxiety) magnesium hydroxide [Milk of Magnesia] 400 mg/5 mL Suspension 30 ml PO DAILY PRN (Reason: Constipation) bisacodyl 10 mg Suppository 10 mg LA DAILY PRN (Reason: Constipation) Fleet Enema 19-7 gram/118 mL Enema 118 ml LA DAILY PRN (Reason: Constipation) docusate sodium [Colace] 100 mg Capsule 100 mg PO DAILY ketoconazole 2 % Shampoo 1 applic TOPICAL .2XWEEKLY PRN (Reason: lather) Discharge Orders: Discharge ED (Routine); Ordered 03/22/24 Ordered By: Drew Ashby Referrals: Alem Auguste PA [Primary Care Provider] - Patient Instructions: Groin Strain (ED), Opioid Safety, Pain Management Print Language: Citizen Of [place] Coding Level of Care Code ED Professional Bass Fisherman for Jr Elmore
[2024-03-22] MEDS: morphine 4 mg/mL SDV 1 mL IM (00:37)
[2024-03-22] MEDS: ondansetron 2 mg/ML SDV 2 mL 4 MG IM (00:37)
--- NOTE | 2024-03-22 00:55 | CTR_ITS ---
PROCEDURE INFORMATION: Exam: CT Pelvis Without Contrast, Skeleton Exam date and time: 03/22/2024 1:13 AM Age: 78 years old Clinical indication: Injury or trauma; Blunt trauma (contusions or hematomas); Prior surgery; Surgery date: 6+ months; Surgery type: Appy. Bladder; EMS arrival from residential for fall. C/O bilateral hip pain RT worse than left. Healing RT pubic fracture noted on xray. ; Additional info: Fall/trauma TECHNIQUE: Imaging protocol: Computed tomography of the pelvis without contrast. Exam focused on the skeleton. Radiation optimization: All CT scans at this facility use at least one of these dose optimization techniques: automated exposure control; mA and/or kV adjustment per patient size (includes targeted exams where dose is matched to clinical indication); or iterative reconstruction. COMPARISON: CT angio chest w abd pel w con 12/30/2021 5:39 PM RADIATION DOSE METRICS: Total DLP (mGy-cm): 439.98 FINDINGS: Bones/joints: Healed bilateral superior and inferior pubic rami fractures. Soft tissues: Unremarkable. CT/CT bony pelvis 20167 IMPRESSION: No acute findings.
[2024-03-22 01:50] LABS: Basophils % 0.6 %; Eosinophils # 0.3 10^3/uL (0.0-0.8); Eosinophils % 4.6 %; Hematocrit 43.3 % (36-47); Lymphocytes # 1.5 10^3/uL (0.8-4.8); Lymphocytes % 20.8 %; Mean Corpuscular Volume 89.8 fl (85-98); Mean Platelet Volume 8.8 fL (7.4-10.4); Monocytes # 0.7 10^3/uL (0.2-0.9); Monocytes % 10.1 %; Neutrophils % 62.6 %; Nucleated Red Blood Cells % 0 %; Platelet Count 165 10^3/cmm (157-399); Red Blood Count 4.82 10^6/uL (3.85-5.65); Red Cell Distribution Width 16.3 % (12.1-15.1); White Blood Count 7.02 10^3/uL (3.29-11.43)
[2024-03-22 02:08] LABS: Alanine Aminotransferase 15 U/L (0-33); Albumin Level 3.2 g/dL (3.5-5.2); Alkaline Phosphatase 161 U/L (35-105); Aspartate Amino Transferase 19 U/L (0-32); Blood Urea Nitrogen 35 mg/dL (8-23); Calcium 9.1 mg/dL (8.5-10.5); Carbon Dioxide 23 mmol/L (22-29); Chloride 94 mmol/L (98-107); Creatinine Clr Calc Pharmacy 34.1144; Globulin 4.3 g/dL (1.3-4.6); Glucose 272 mg/dL (65-115); Osmolality Calculated 292 mOsm/kg (285-295); Sodium 132 mmol/L (136-145); Total Bilirubin 0.3 mg/dL (0.15-1.2); Total Protein 7.5 g/dL (6.6-8.7)
[2024-03-22] MEDS: HYDROMORPHONE HCL 0.5 MG/0.5 ML INJ IVP (02:50)
[2024-03-22 03:57] VITALS: BP 131/67; PULSE 76; O2SAT 91
[2024-03-22 05:05] VITALS: BP 131/67; PULSE 73; O2SAT 94
[2024-03-22 06:00] VITALS: BP 131/6; RESP 74; O2SAT 93
[2024-03-22 07:15] VITALS: BP 131/67; PULSE 77; O2SAT 93
== END 2024-03-22 07:19 | disposition home or self-care (01) ==
PROVIDERS: Physician Assistant; Emergency Provider Emergency Medicine; PCP Physician Assistant
DX: S76.219A Strain of adductor muscle, fascia and tendon of unspecified thigh, initial encounter (principal); Z79.82 Long term (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; Z87.891 Personal history of nicotine dependence; Z95.1 Presence of aortocoronary bypass graft; J44.9 Chronic obstructive pulmonary disease, unspecified; E11.22 Type 2 diabetes mellitus with diabetic chronic kidney disease; I12.9 Hypertensive chronic kidney disease with stage 1 through stage 4 chronic kidney disease, or unspecified chronic kidney disease; N18.30 Chronic kidney disease, stage 3 unspecified; E11.42 Type 2 diabetes mellitus with diabetic polyneuropathy; W01.0XXA Fall on same level from slipping, tripping and stumbling without subsequent striking against object, initial encounter
CPT/HCPCS: 36415; 72192; 73110; 73522; 80053; 85025; 96372; 96374; 99285; J1171; J2270; J2405

== ENCOUNTER 2024-04-09 18:26 | Inpatient (IN) | payer MEDICARE, MEDICAID, SELFPAY ==
[2024-04-09 18:28] VITALS: BP 136/55; PULSE 78; RESP 18; TEMP 36.4; O2SAT 91
--- NOTE | 2024-04-09 18:30 | XRR_ITS ---
PROCEDURE INFORMATION: Exam: XR Chest Exam date and time: 04/09/2024 6:34 PM Age: 78 years old Clinical indication: Injury or trauma; Fall; Blunt trauma (contusions or hematomas); Additional info: Probable hip fracture TECHNIQUE: Imaging protocol: Radiologic exam of the chest. Views: 1 view. COMPARISON: CR XR chest 1V portable [id number] 09/13/2023 3:08 PM FINDINGS: Lungs: No focal consolidation. Pleural spaces: Unremarkable. No pleural effusion. No pneumothorax. Heart/Mediastinum: Unremarkable. No cardiomegaly. Bones/joints: Median sternotomy and CABG. Healing/healed fracture deformity of the right mid humerus with prominent bridging osteophyte formations. Old healed fracture deformity of the right humeral head and neck. XR/XR chest 1V portable [id number] IMPRESSION: 1. No focal consolidation. 2. Old healed fracture deformity of the right humeral head and neck. 3. Healing/healed fracture deformity of the right mid humerus with prominent bridging osteophyte formations.
--- NOTE | 2024-04-09 18:31 | XRR_ITS ---
PROCEDURE INFORMATION: Exam: XR Right Hip Exam date and time: 04/09/2024 6:34 PM Age: 78 years old Clinical indication: Injury or trauma; Fall; Blunt trauma (contusions or hematomas); Right; Hip; Additional info: Hip pain TECHNIQUE: Imaging protocol: Radiologic exam of the right hip. Views: 1 view hip with pelvis when performed. COMPARISON: CT bony pelvis [id number] 03/22/2024 1:13 AM FINDINGS: Bones/joints: Angulated intratrochanteric fracture of the right femur. Soft tissues: Unremarkable. XR/XR hip RT 2-3V wo/w pel* [id number] IMPRESSION: Angulated intratrochanteric fracture of the right femur.
--- NOTE | 2024-04-09 18:41 | W.ED.EXTPRO ---
HPI - Extremity Problem General: Chief complaint: Extremity Injury, Lower Stated complaint: right hip pain Time Seen by Provider: 04/09/24 18:28 History of Present Illness: 78-year-old woman with a history of hypertension, MARY ANN, coronary artery disease, CKD, depression, diabetes and COPD who presents from the group home by ambulance with concern for hip fracture. Apparently she had a fall couple of weeks ago and initially x-rays were negative but then they repeated them at the group home and they are concerned for a right intertrochanteric fracture. Related Data Home Medications ?Medication ?Instructions ?Recorded ?Confirmed duloxetine 60 mg capsule,delayed 60 mg PO DAILY 06/20/19 03/13/24 release sprinkle albuterol sulfate 2.5 mg/3 mL 2.5 mg inhalation Q6H PRN 07/16/23 03/13/24 (0.083 %) solution for nebulization Shortness Of Breath atorvastatin 20 mg tablet 20 mg PO BEDTIME 07/16/23 03/13/24 duloxetine 30 mg capsule,delayed 30 mg PO DAILY 07/16/23 03/13/24 release metoprolol tartrate 25 mg tablet 25 mg PO BID 07/16/23 03/13/24 umeclidinium 62.5 mcg-vilanterol 1 ea inhalation DAILY 07/16/23 03/13/24 25 mcg/actuation powdr for inhalation (Anoro Ellipta) acetaminophen 325 mg tablet 650 mg PO Q6H PRN pain/fever 08/03/23 03/13/24 (Tylenol) alprazolam 0.5 mg tablet 0.5 mg PO BID PRN Anxiety 08/03/23 03/13/24 bisacodyl 10 mg rectal suppository 10 mg GA DAILY PRN Constipation 08/03/23 03/13/24 docusate sodium 100 mg capsule 100 mg PO DAILY 08/03/23 03/13/24 (Colace) ketoconazole 2 % shampoo 1 applic topical .2XWEEKLY PRN 08/03/23 03/13/24 lather magnesium hydroxide 400 mg/5 mL 30 ml PO DAILY PRN Constipation 08/03/23 03/13/24 oral suspension (Milk of Magnesia) sodium phosphates 19 gram-7 118 ml GA DAILY PRN Constipation 08/03/23 03/13/24 gram/118 mL enema (Fleet Enema) amino acids-protein hydrolysate 15 1 ea PO DAILY 09/05/23 03/13/24 gram-101 kcal/30 mL oral liquid diphenhydramine HCl 25 mg capsule 25 mg PO DAILY PRN Allergic 09/05/23 03/13/24 (Benadryl) Reaction hydrocortisone 1 % topical cream 1 applic topical QID PRN RASH/ITCH 09/05/23 03/13/24 lactobacillus combination no.4 3 3,000 mmu cells PO DAILY PRN WHILE 09/05/23 03/13/24 billion cell capsule (Probiotic) ON ANTIBIOTICS nystatin 100,000 unit/gram topical 1 applic topical BID PRN REDNESS 09/05/23 03/13/24 powder polyethylene glycol 3350 17 See Rx Instructions .Route .COMPLEX 09/05/23 03/13/24 gram/dose oral powder (Miralax) Previous Rx's ?Medication ?Instructions ?Recorded aspirin 81 mg tablet,delayed 81 mg PO DAILY #30 tabs 06/25/19 release (Farzana Low Dose Aspirin) budesonide 180 mcg/actuation 1 inh inhalation BID #1 ea 12/20/21 breath activated powder inhaler (Pulmicort Flexhaler) furosemide 40 mg tablet 40 mg PO DAILY PRN Swelling #2 tabs 07/19/23 Wrist brace #1 ea 08/07/23 insulin lispro 100 unit/mL See Rx Instructions .Route 09/14/23 subcutaneous pen (Humalog KwikPen .COMPLEX PRN blood sugar #15 mL (U-100) Insulin) pantoprazole 40 mg tablet,delayed 40 mg PO BID 30 days #60 tabs 09/14/23 release cock up splint right wrist. #1 ea 09/18/23 radial palsy brace, right #1 ea 10/17/23 doxycycline hyclate 100 mg capsule 100 mg PO BID 2 weeks #28 caps 10/26/23 tramadol 50 mg tablet 50 mg PO Q8H PRN pain #30 tabs 03/22/24 Allergies Allergy/AdvReac Type Severity Reaction Status Date / Time acetaminophen (From Vicodin) Allergy ADR-Confusi Verified 04/09/24 18:47 on cephalexin Allergy ALGY-Hives Verified 04/09/24 18:47 fluticasone (From Advair Allergy Unknown Verified 04/09/24 18:47 Diskus) hydrocodone (From Vicodin) Allergy ADR-Confusi Verified 04/09/24 18:47 on nitrofurantoin (From Allergy ALGY-Hives Verified 04/09/24 18:47 Macrobid) salmeterol (From Advair Allergy Unknown Verified 04/09/24 18:47 Diskus) Review of Systems Narrative: Constitutional symptoms: Negative except as documented in HPI. Skin symptoms: Negative except as documented in HPI. Eye symptoms: Negative except as documented in HPI. ENMT symptoms: Negative except as documented in HPI. Respiratory symptoms: Negative except as documented in HPI. Cardiovascular symptoms: Negative except as documented in HPI. Gastrointestinal symptoms: Negative except as documented in HPI. Genitourinary symptoms: Negative except as documented in HPI. Musculoskeletal symptoms: Negative except as documented in HPI. Neurologic symptoms: Negative except as documented in HPI. Psychiatric symptoms: Negative except as documented in HPI. Endocrine symptoms: Negative except as documented in HPI. PFSH ED PFSH: Medical History Hypertension Obstructive sleep apnea intolerant of cpap Coronary artery disease CKD (chronic kidney disease) stage 3, GFR 30-59 ml/min Pneumonia Stroke Coffee ground emesis 2021 Nephrolithiasis Peripheral neuropathy Depression Diabetes mellitus type 2 in obese COPD (chronic obstructive pulmonary disease) Chronically uses 2 L per nasal cannula Surgical History History of ankle surgery History of cataract surgery History of bladder surgery History of carpal tunnel surgery History of shoulder surgery History of appendectomy Hx of CABG 2004 Family History Other Dementia Social History Smoking and tobacco/nicotine status: never used tobacco/nicotine Quit status (tobacco/nicotine): has quit using Year quit tobacco: 12/2022 Alcohol intake: never Substance/Drug Use: never Physical Exam Narrative: EXAM NARRATIVE: General: Alert, no acute distress. Skin: Warm, dry. Head: Normocephalic, atraumatic. Neck: Supple, trachea midline. Eye: Extraocular movements are intact. Ears, nose, mouth and throat: mucosa moist. Cardiovascular: Regular, Normal peripheral perfusion. Respiratory: Lungs are clear to auscultation, respirations are non-labored, breath sounds are equal, Symmetrical chest wall expansion. Gastrointestinal: Soft, Nontender, Non distended Musculoskeletal: Patient has her legs in type position. Pain with any movement of the right leg. Unclear if there is any shortening or rotation. Neurovascularly intact Neurological: Alert and oriented, No focal neurological deficit observed. Psychiatric: Patient is a bit agitated. Screams out. Course Vital Signs: Vital signs: Vital Signs Temperature 97.5 F L 04/09/24 18:28 Pulse Rate 78 04/09/24 18:28 Respiratory Rate 18 04/09/24 18:47 Blood Pressure 136/55 04/09/24 18:28 Pulse Oximetry 91 04/09/24 18:28 Oxygen Delivery Me thod Nasal Cannula 04/09/24 18:28 Oxygen Flow Rate 2 04/09/24 18:28 MDM - Extremity (Nontraumatic) Medical Decision Making Medical decision making: Differential diagnosis for patient with fall and hip pain with deformity including but not limited to and based on the above HPI, review of systems and physical exam: Hip fracture, femur fracture, pelvic fractures including pubic rami and acetabular fractures, hip strain, hip contusion. - Workup: - Hip films ordered to evaluate above. - also presurgical work up done. EKG, Chest xray and lab work X-ray of the right hip and pelvis: There is a intertrochanteric hip fracture. This was reviewed and interpreted by myself the emergency room physician. I also reviewed the radiology report. Chest x-ray: Stable chest. Sternotomy wires in place. Cardiomegaly. This was reviewed and interpreted by myself the emergency room physician. I also reviewed the radiology report. EKG: Time 1924. Rate 73 normal sinus rhythm, No ST-T changes, no ectopy, normal GA & QRS intervals, This was reviewed and interpreted by myself the ER physician at 1930 Lab Review: Laboratory results were reviewed and interpreted by myself the emergency room physician. No leukocytosis. No anemia. Stable chronic renal insufficiency with a BUN/creatinine at 35 and 1.2. Consultation: I spoke with Dr. Dela Cruz who is on-call for orthopedics who agrees to consultation and likely surgical repair of the hip. Recommends admission to the hospitalist service. Consultation: I spoke with Dr. Winter who is on-call for the hospitalist service who agrees to admission. I reviewed the patient's medical record. I also reviewed group home paperwork and patient is not on any blood thinners. Assessment and plan: Hip fracture ?IV morphine and Zofran in the emergency room. -I discussed the patient with the hospitalist on-call who is admitting the patient. - Discussed findings and plan with patient. Answered any questions. - All laboratory values were reviewed and interpreted personally by myself, the ER physician - All imaging was reviewed and interpreted personally by myself, the ER physician. - Evaluation and treatment of this problem were appropriate in the emergency setting Lab Data 04/09/24 19:00 04/09/24 19:00 Radiology Impressions Chest X-Ray 04/09/24 18:30 IMPRESSION: 1. No focal consolidation. 2. Old healed fracture deformity of the right humeral head and neck. 3. Healing/healed fracture deformity of the right mid humerus with prominent bridging osteophyte formations. Hip/Pelvis X-Ray 04/09/24 18:31 IMPRESSION: Angulated intratrochanteric fracture of the right femur. Laboratory Results WBC 8.66 10^3/uL (3.29-11.43) 04/09/24 19:00 RBC 4.64 10^6/uL (3.85-5.65) 04/09/24 19:00 Hgb 12.40 g/dL (11.27-16.99) 04/09/24 19:00 Hct 40.6 % (36-47) 04/09/24 19:00 MCV 87.5 fl (85-98) 04/09/24 19:00 MCH 26.7 pg (27-33) L 04/09/24 19:00 MCHC 30.5 g/dL (30-55) 04/09/24 19:00 RDW 15.8 % (12.1-15.1) H 04/09/24 19:00 Plt Count 367 10^3/cmm (157-399) 04/09/24 19:00 MPV 8.6 fL (7.4-10.4) 04/09/24 19:00 Neut % (Auto) 69.8 % 04/09/24 19:00 Lymph % (Auto) 17.4 % 04/09/24 19:00 [place] % (Auto) 7.7 % 04/09/24 19:00 Eos % (Auto) 3.2 % 04/09/24 19:00 Baso % (Auto) 0.7 % 04/09/24 19:00 Neut # (Auto) 6.04 10^3/uL (1.8-7.7) 04/09/24 19:00 Lymph # (Auto) 1.5 10^3/uL (0.8-4.8) 04/09/24 19:00 [place] # (Auto) 0.7 10^3/uL (0.2-0.9) 04/09/24 19:00 Eos # (Auto) 0.3 10^3/uL (0.0-0.8) 04/09/24 19:00 Baso # (Auto) 0.1 10^3/uL (0.0-0.1) 04/09/24 19:00 Nucleated RBC % (auto) 0 % 04/09/24 19:00 Nucleated RBCs # 0.0 /100WBC 04/09/24 19:00 PT 13.60 SECONDS (12.1-14.9) 04/09/24 19:00 INR 0.97 (0.8-1.2) 04/09/24 19:00 APTT 35.4 SECONDS (23.9-36.7) 04/09/24 19:00 Sodium 137 mmol/L (136-145) 04/09/24 19:00 Potassium 4.6 mmol/L (3.5-5.1) 04/09/24 19:00 Chloride 96 mmol/L (98-107) L 04/09/24 19:00 Carbon Dioxide 28 mmol/L (22-29) 04/09/24 19:00 Anion Gap 17.6 (5-19) 04/09/24 19:00 BUN 35 mg/dL (8-23) H 04/09/24 19:00 Creatinine 1.2 mg/dL (0.5-0.9) H 04/09/24 19:00 GFR Calculation Not Reportable 04/09/24 19:00 Glucose 331 mg/dL (65-115) H 04/09/24 19:00 Calculated Osmolality 305 mOsm/kg (285-295) H 04/09/24 19:00 Calcium 9.2 mg/dL (8.5-10.5) 04/09/24 19:00 Total Bilirubin 0.3 mg/dL (0.15-1.2) 04/09/24 19:00 AST 25 U/L (0-32) 04/09/24 19:00 ALT 27 U/L (0-33) 04/09/24 19:00 Alkaline Phosphatase 252 U/L (35-105) H 04/09/24 19:00 Total Protein 7.7 g/dL (6.6-8.7) 04/09/24 19:00 Albumin 3.5 g/dL (3.5-5.2) 04/09/24 19:00 Globulin 4.2 g/dL (1.3-4.6) 04/09/24 19:00 All radiology interpretation(s) finalized by discharge Discharge Plan Discharge Patient Disposition: Admitted As Inpatient Clinical Impression: Closed intertrochanteric fracture of right hip Qualifiers: Encounter type: initial encounter Fracture alignment: displaced Qualified Code(s): S72.141A - Displaced intertrochanteric fracture of right femur, initial encounter for closed fracture Condition: Stable Coding Level of Care Code ED [employer] for Jr Elmore
[2024-04-09] MEDS: ondansetron 2 mg/ML SDV 2 mL 4 MG IVP (18:45)
[2024-04-09 18:47] VITALS: RESP 18
[2024-04-09] MEDS: morphine 4 mg/mL SDV 1 mL IVP (18:47)
--- NOTE | 2024-04-09 18:56 | ECG_ITS ---
[facility] Date: 2024-04-09 Pat Name: Deyanira Gonsales Department: Room: Gender: Female [employer]: : 1945 Requested By: Sarah Calzada Order Number: [id number] Gregory MD: Caio Kitchen M.D. Measurements Intervals Silva Rate: 73 P: 90 VT: 150 QRS: 61 QRSD: 83 T: 72 QT: 394 QTc: 436 Interpretive Statements SINUS RHYTHM LOW QRS VOLTAGE IN PRECORDIAL LEADS [QRS DEFLECTION < 1.0 mV IN CHEST LEADS] POSSIBLE RIGHT VENTRICULAR CONDUCTION DELAY [RSR (QR) IN V1/V2] Compared to ECG 07/16/2023 13:49:01 Low QRS voltage now present Sinus bradycardia no longer present T-wave abnormality no longer present Electronically Signed On 04-12-2024 18:07:12 APPLIANCE REPAIRER by Caio Kitchen M.D. [email or web address]
[2024-04-09 19:12] LABS: Basophils # 0.1 10^3/uL (0.0-0.1); Basophils % 0.7 %; Eosinophils # 0.3 10^3/uL (0.0-0.8); Eosinophils % 3.2 %; Hematocrit 40.6 % (36-47); Lymphocytes # 1.5 10^3/uL (0.8-4.8); Lymphocytes % 17.4 %; Mean Corpuscular HGB Conc 30.5 g/dL (30-55); Mean Corpuscular Hemoglobin 26.7 pg (27-33); Mean Corpuscular Volume 87.5 fl (85-98); Mean Platelet Volume 8.6 fL (7.4-10.4); Monocytes # 0.7 10^3/uL (0.2-0.9); Monocytes % 7.7 %; Neutrophils # 6.04 10^3/uL (1.8-7.7); Neutrophils % 69.8 %; Nucleated Red Blood Cells % 0 %; Platelet Count 367 10^3/cmm (157-399); Red Blood Count 4.64 10^6/uL (3.85-5.65); Red Cell Distribution Width 15.8 % (12.1-15.1); White Blood Count 8.66 10^3/uL (3.29-11.43)
[2024-04-09 19:33] LABS: INR 0.97 (0.8-1.2)
[2024-04-09 19:34] LABS: Partial Thromboplastin Time 35.4 SECONDS (23.9-36.7)
[2024-04-09 19:36] LABS: Alanine Aminotransferase 27 U/L (0-33); Albumin Level 3.5 g/dL (3.5-5.2); Alkaline Phosphatase 252 U/L (35-105); Anion Gap 17.6 (5-19); Aspartate Amino Transferase 25 U/L (0-32); Blood Urea Nitrogen 35 mg/dL (8-23); Calcium 9.2 mg/dL (8.5-10.5); Carbon Dioxide 28 mmol/L (22-29); Chloride 96 mmol/L (98-107); Creatinine Clr Calc Pharmacy 39.1018; Globulin 4.2 g/dL (1.3-4.6); Glucose 331 mg/dL (65-115); Osmolality Calculated 305 mOsm/kg (285-295); Potassium 4.6 mmol/L (3.5-5.1); Sodium 137 mmol/L (136-145); Total Bilirubin 0.3 mg/dL (0.15-1.2); Total Protein 7.7 g/dL (6.6-8.7)
--- NOTE | 2024-04-09 19:39 | PM.HP ---
Providers/Chief Complaint Primary Care Provider: Alem Auguste Chief Complaint: right hip pain History of Present Illness Deyanira Gonsales is a 78 year old female with past medical history of hypertension CABG coronary artery disease sleep apnea hypertension and stroke presented to the hospital from retirement with right hip pain. Patient is stating that she probably fell 2 weeks ago, endorsing to mechanical fall but stating that she is not able to recall all the events, she is not sure if she blacked out/Syncope or any seizure. At baseline she uses 2 L of oxygen, and has history of sleep apnea intolerant to CPAP. Has preserved ejection fraction. She was evaluated on 03/22 after a fall, ER records revealed that she tripped over her oxygen cord and fell on the ground, pelvis CT scan was unremarkable, patient is stating that she attributed right hip pain to her possible arthritis, but his pain has gotten worse, today hip x-rays showing angulated intratrochanteric fracture right femur. At the time of evaluation patient is resting well, on 2 L nasal cannula Hemodynamic stable No neurovascular compromise of lower extremity Smith catheter in place Review of Systems Const: Denies: fever(s) Eyes: Denies: change in vision ENMT: Denies: throat pain Card: Denies: chest pain Resp: Denies: dyspnea Musc: Reports: extremity pain Medications/Allergies Home Medications ?Medication ?Instructions ?Recorded ?Confirmed ?Last Taken ?Type duloxetine 60 mg capsule,delayed 60 mg PO DAILY 06/20/19 03/13/24 09/05/23 History release sprinkle aspirin 81 mg tablet,delayed 81 mg PO DAILY #30 tabs 06/25/19 03/13/24 09/05/23 Rx release (Farzana Low Dose Aspirin) budesonide 180 mcg/actuation 1 inh inhalation BID #1 ea 12/20/21 03/13/24 09/05/23 Rx breath activated powder inhaler (Pulmicort Flexhaler) albuterol sulfate 2.5 mg/3 mL 2.5 mg inhalation Q6H PRN 07/16/23 03/13/24 07/24/23 History (0.083 %) solution for nebulization Shortness Of Breath atorvastatin 20 mg tablet 20 mg PO BEDTIME 07/16/23 03/13/24 09/04/23 History duloxetine 30 mg capsule,delayed 30 mg PO DAILY 07/16/23 03/13/24 09/05/23 History release metoprolol tartrate 25 mg tablet 25 mg PO BID 07/16/23 03/13/24 09/05/23 History umeclidinium 62.5 mcg-vilanterol 1 ea inhalation DAILY 07/16/23 03/13/24 09/05/23 History 25 mcg/actuation powdr for inhalation (Anoro Ellipta) furosemide 40 mg tablet 40 mg PO DAILY PRN Swelling #2 tabs 07/19/23 03/13/24 07/16/23 Rx acetaminophen 325 mg tablet 650 mg PO Q6H PRN pain/fever 08/03/23 03/13/24 08/31/23 History (Tylenol) alprazolam 0.5 mg tablet 0.5 mg PO BID PRN Anxiety 08/03/23 03/13/24 09/02/23 History bisacodyl 10 mg rectal suppository 10 mg MI DAILY PRN Constipation 08/03/23 03/13/24 Unknown History docusate sodium 100 mg capsule 100 mg PO DAILY 08/03/23 03/13/24 09/05/23 History (Colace) ketoconazole 2 % shampoo 1 applic topical .2XWEEKLY PRN 08/03/23 03/13/24 Unknown History lather magnesium hydroxide 400 mg/5 mL 30 ml PO DAILY PRN Constipation 08/03/23 03/13/24 Unknown History oral suspension (Milk of Magnesia) sodium phosphates 19 gram-7 118 ml MI DAILY PRN Constipation 08/03/23 03/13/24 Unknown History gram/118 mL enema (Fleet Enema) Wrist brace #1 ea 08/07/23 03/13/24 Unknown Rx amino acids-protein hydrolysate 15 1 ea PO DAILY 09/05/23 03/13/24 09/05/23 History gram-101 kcal/30 mL oral liquid diphenhydramine HCl 25 mg capsule 25 mg PO DAILY PRN Allergic 09/05/23 03/13/24 09/01/23 History (Benadryl) Reaction hydrocortisone 1 % topical cream 1 applic topical QID PRN RASH/ITCH 09/05/23 03/13/24 Unknown History lactobacillus combination no.4 3 3,000 mmu cells PO DAILY PRN WHILE 09/05/23 03/13/24 Unknown History billion cell capsule (Probiotic) ON ANTIBIOTICS nystatin 100,000 unit/gram topical 1 applic topical BID PRN REDNESS 09/05/23 03/13/24 Unknown History powder polyethylene glycol 3350 17 See Rx Instructions .Route .COMPLEX 09/05/23 03/13/24 09/05/23 History gram/dose oral powder (Miralax) insulin lispro 100 unit/mL See Rx Instructions .Route 09/14/23 03/13/24 09/05/23 Rx subcutaneous pen (Humalog KwikPen .COMPLEX PRN blood sugar #15 mL (U-100) Insulin) pantoprazole 40 mg tablet,delayed 40 mg PO BID 30 days #60 tabs 09/14/23 03/13/24 09/05/23 Rx release cock up splint right wrist. #1 ea 09/18/23 03/13/24 Unknown Rx radial palsy brace, right #1 ea 10/17/23 03/13/24 Unknown Rx doxycycline hyclate 100 mg capsule 100 mg PO BID 2 weeks #28 caps 10/26/23 03/13/24 Unknown Rx tramadol 50 mg tablet 50 mg PO Q8H PRN pain #30 tabs 03/22/24 Unknown Rx Allergies Allergy/AdvReac Type Severity Reaction Status Date / Time acetaminophen (From Vicodin) Allergy ADR-Confusi Verified 04/09/24 18:47 on cephalexin Allergy ALGY-Hives Verified 04/09/24 18:47 fluticasone (From Advair Allergy Unknown Verified 04/09/24 18:47 Diskus) hydrocodone (From Vicodin) Allergy ADR-Confusi Verified 04/09/24 18:47 on nitrofurantoin (From Allergy ALGY-Hives Verified 04/09/24 18:47 Macrobid) salmeterol (From Advair Allergy Unknown Verified 04/09/24 18:47 Diskus) PFSH Acute PFSH: Medical History Hypertension Obstructive sleep apnea intolerant of cpap Coronary artery disease CKD (chronic kidney disease) stage 3, GFR 30-59 ml/min Pneumonia Stroke Coffee ground emesis 2021 Nephrolithiasis Peripheral neuropathy Depression Diabetes mellitus type 2 in obese COPD (chronic obstructive pulmonary disease) Chronically uses 2 L per nasal cannula Surgical History History of ankle surgery History of cataract surgery History of bladder surgery History of carpal tunnel surgery History of shoulder surgery History of appendectomy Hx of CABG 2004 Family History Other Dementia Social History Smoking and tobacco/nicotine status: never used tobacco/nicotine Quit status (tobacco/nicotine): has quit using Year quit tobacco: 12/2022 Alcohol intake: never Substance/Drug Use: never Vitals/I&O/Wt Last Vital Signs Temp 97.5 F L 04/09/24 18:28 Pulse 78 04/09/24 18:28 Resp 18 04/09/24 18:47 BP 136/55 04/09/24 18:28 Pulse Ox 91 04/09/24 18:28 O2 Del Method Nasal Cannula 04/09/24 18:28 O2 Flow Rate 2 04/09/24 18:28 Weight last 48 hrs Weight 76.657 kg Physical Exam Narrative: Patient clinic looks euvolemic No neurovascular compromise of lower extremities Smith catheter in place No active chest pain or shortness of breath Currently on 2 L No audible stridor or wheezing S1, S2 Abdomen distended nontender tender No active focal deficit Short attention span Takes long time to answer questions Data 04/09/24 19:00 04/09/24 19:00 A&P Assessment and plan (1) Hypertension: (2) Postural drop in blood pressure: (3) Diabetes: (4) Chronic kidney disease (CKD): (5) Closed intertrochanteric fracture of right hip: Qualifiers: Encounter type: initial encounter Fracture alignment: displaced Qualified Code(s): S72.141A - Displaced intertrochanteric fracture of right femur, initial encounter for closed fracture (6) COPD (chronic obstructive pulmonary disease): (7) Obstructive sleep apnea: Plan Right hip fracture N.p.o. for now Opioids along bowel regimen Smith catheter placed already Orthopedic surgery consulted Previous echo showed preserved action fraction without diastolic heart failure RCRI class I risk no preoperative cardiac clearance indicated at this point Check B12, patient seems to have recurrent falls Patient endorsing falling 03/22, at that time pelvic CT scan was unremarkable Chronic kidney disease: Creatinine seems around baseline No acute decompensation No significant acidosis or hyperkalemia Sleep apnea/COPD: Uses 2 L of oxygen at baseline no acute decompensation History of coronary disease status post CABG: No active chest pain EKG unremarkable for infarctive or ischemic changes Full code N.p.o. for now DVT prophylaxis SCDs in anticipation of hip surgery in the morning Patient follows up with Dr. Martin for right humerus fracture patient experienced radial nerve injury which seems to be recovering well underwent open reduction internal fixation of her right humeral shaft fracture on August 03, 2023 with postop course complicated by development of cellulitis wound and hardware infection with MRSA by August 21, 2023. CT of the extremity on September 04 showed a developing abscess versus phlegmon. She initially underwent IR guided aspiration of the abscess with minimal pus encountered. Culture from the aspirate showed MRSA. Subsequently she is status post removal of proximal humeral screw on September 10 and then status post I&D to bone with removal of all hardware on September 12, 2023 PDMP PDMP Reviewed: Not Reviewed Attestations Medical Necessity Statement*: Anticipating more than 2 midnights for management and evaluation of hip surgery Diagnoses Hypertension I10 Postural drop in blood pressure I95.1 Diabetes E11.9 Chronic kidney disease (CKD) N18.9 Closed intertrochanteric fracture of right hip S72.141A Encounter type: initial encounter Fracture alignment: displaced COPD (chronic obstructive pulmonary disease) J44.9 Obstructive sleep apnea G47.33
[2024-04-09 20:00] VITALS: BP 160/57; PULSE 76; RESP 16; O2SAT 92
--- NOTE | 2024-04-09 20:07 | PC.NURSE ---
ATTEMPTED TO CALL REPORT AT 2007
[2024-04-09 20:39] LABS: Bilirubin Urine Negative (Negative); Blood Urine Negative (Negative); Glucose Urine UA 1+ (Normal); Ketones Urine Negative (Negative); Leukocyte Esterase Urine Negative (Negative); Nitrate Urine Negative (Negative); Protein Urine Trace (Negative); Urine Appearance Clear (CLEAR); Urine Color Yellow (Yellow); Urobilinogen Urine 0.2 mg/dL (Negative)
[2024-04-09 20:41] VITALS: BMI 27.1
--- NOTE | 2024-04-09 20:41 | USCV_ITS ---
Deyanira Gonsales Age: 78 Gender: F : 1945 Exam Date: 04/09/2024 21:05 Ordering Phys: Yoly Winter MD Technologist: FREDY Exam Location: [facility] – [place] Indication: pre-op clearance for RIGHT HIP ORIF BP: 160 / 92 HR: 66 Rhythm: Sinus Technical Quality: suboptimal difficult windows MEASUREMENTS (Male / Female) Normal Values 2D ECHO LV Diastolic Diameter PLAX 3.7 cm 4.2 - 5.9 / 3.9 - 5.3 cm IVS Diastolic Thickness 1.5 cm 0.6 - 1.0 / 0.6 - 0.9 cm IVS Systolic Thickness 1.4 cm LVPW Diastolic Thickness 1.1 cm 0.6 - 1.0 / 0.6 - 0.9 cm LVPW Systolic Thickness 1.4 cm LVOT Diameter 1.7 cm LV Ejection Fraction 2D Teich 65.1 % LV Ejection Fraction MOD 4C 51.5 % LV Ejection Fraction MOD 2C 63.2 % LV Ejection Fraction 2C AL 62.9 % LA Diameter 3.3 cm Aorta at Sinotubular Diameter 2.3 cm IVC Diameter 1.1 cm M-MODE LA Ao Ratio MM 1.0 AV Cusp Separation MM 1.4 cm DOPPLER AV Peak Velocity 140.0 cm/s LVOT Peak Velocity 125.0 cm/s AV Area Cont Eq vti 2.3 cm squared AV Area Cont Eq pk 2.1 cm squared MV Peak Velocity 97.0 cm/s MV Area PHT 3.3 cm squared Mitral E to A Ratio 0.6 TR Peak Velocity 226.0 cm/s TR Peak Gradient 20.4 mmHg TV Peak E Velocity 30.0 cm/s PV Peak Velocity 118.0 cm/s FINDINGS Left Ventricle Normal left ventricular size, systolic function and wall thickness, with no regional wall motion abnormalities. Left ventricular ejection fraction is estimated at 55 %. Grade I/IV diastolic dysfunction (abnormal relaxation filling pattern), normal to mildly elevated filling pressures. Right Ventricle The right ventricle is normal in size and function. Right Atrium The right atrium is normal in size. Left Atrium The left atrium is normal in size. Mitral Valve Mildly thickened mitral valve. No mitral valve stenosis. Trace mitral valve regurgitation. Aortic Valve Aortic valve not well visualized. Tricuspid Valve Mild tricuspid valve regurgitation. Pulmonic Valve Structurally normal pulmonic valve without significant stenosis. There is no pulmonic regurgitation. Pericardium Normal pericardium without effusion. Aorta Normal ascending aorta dimension. IVC The inferior vena cava appears normal. CONCLUSIONS Normal left ventricular size, systolic function and wall thickness, with no regional wall motion abnormalities. Left ventricular ejection fraction is estimated at 55 %. Grade I/IV diastolic dysfunction (abnormal relaxation filling pattern), normal to mildly elevated filling pressures. There is no pericardial effusion. Right atrial pressure is around 5 mm of mercury. Yoly Barbosa MD (Electronically Signed) Final Date: 09 April 2024 23:02 S
[2024-04-09 20:56] VITALS: BP 158/59; PULSE 73; O2SAT 97
[2024-04-09 21:12] VITALS: RESP 17
[2024-04-09] MEDS: morphine 4 mg/mL SDV 1 mL 2 MG IVP (21:12)
[2024-04-09 21:13] VITALS: BP 158/64; PULSE 72; RESP 16; TEMP 36.3; O2SAT 95
[2024-04-09 21:15] LABS: RBC Urine 0-4 /hpf (0-2); Squamous Epithelial Cell Urine 0-4 /hpf (0-5)
[2024-04-09 21:16] LABS: Add Urine Culture? Yes; Bacteria Urine 2+ /hpf
[2024-04-10] VITALS (19 sets, daily range): BP systolic 108–167; BP diastolic 55–103; PULSE 66–96; RESP 16–19; TEMP 36.1–36.9; O2SAT 90–99; BMI 26.6
[2024-04-10 00:24] LABS: Vitamin B12 378 pg/mL (232-1245)
[2024-04-10 05:19] LABS: Basophils # 0.1 10^3/uL (0.0-0.1); Basophils % 0.7 %; Eosinophils # 0.3 10^3/uL (0.0-0.8); Eosinophils % 3.6 %; Hematocrit 42.4 % (36-47); Lymphocytes # 1.5 10^3/uL (0.8-4.8); Lymphocytes % 17.3 %; Mean Corpuscular HGB Conc 30.4 g/dL (30-55); Mean Corpuscular Hemoglobin 26.5 pg (27-33); Mean Corpuscular Volume 87.1 fl (85-98); Mean Platelet Volume 8.5 fL (7.4-10.4); Monocytes # 0.7 10^3/uL (0.2-0.9); Monocytes % 8.2 %; Neutrophils # 5.98 10^3/uL (1.8-7.7); Nucleated Red Blood Cells % 0 %; Platelet Count 342 10^3/cmm (157-399); Red Blood Count 4.87 10^6/uL (3.85-5.65); Red Cell Distribution Width 15.6 % (12.1-15.1); White Blood Count 8.66 10^3/uL (3.29-11.43)
[2024-04-10 05:44] LABS: Blood Urea Nitrogen 30 mg/dL (8-23); Calcium 9.6 mg/dL (8.5-10.5); Carbon Dioxide 27 mmol/L (22-29); Chloride 101 mmol/L (98-107); Glucose 253 mg/dL (65-115); Osmolality Calculated 303 mOsm/kg (285-295); Sodium 139 mmol/L (136-145)
[2024-04-10 06:19] LABS: Anion Gap 16.2 (5-19); Potassium 5.2 mmol/L (3.5-5.1)
[2024-04-10] MEDS: morphine 4 mg/mL SDV 1 mL 2 MG IVP (09:16)
[2024-04-10] MEDS: metoprolol tartrate 25 mg Tablet PO (09:17)
[2024-04-10] MEDS: sennosides-docusate Tablet 1 TAB PO (09:17)
--- NOTE | 2024-04-10 10:36 | PM.CONSULT ---
Providers/Reason For Consult Consulting Physician/Specialty*: Connor Dela Cruz MD, orthopedic surgery Reason for Consult*: Fracture right hip Attending Physician: Farshad Chawla MD Primary Care Provider: Alem Auguste History of Present Illness History of Present Illness Deyanira Gonsales is a 78 year old female who presented to the emergency department last evening with severe pain in the right hip. Inability to bear weight or to walk. Significant history as patient was in the ED approximately 2 weeks ago with complaints of pain and problems in her hip however workup at that time did not identify a fracture. She had had a fall back then. She has not had another fall this time but now has severe pain and inability to bear weight. Patient was then admitted through the ED to the hospitalist service and consultation with orthopedics is obtained. Review of Systems General: Reports: 10 or more systems reviewed and unremarkable except in HPI and below Const: Denies: fever(s), chills or body aches Eyes: Denies: change in vision, blurry vision or photophobia ENMT: Reports: hoarseness; Denies: throat pain, enlarged tonsils, odynophagia or nasal congestion Card: Denies: chest pain, palpitations, irregular heart rhythm, edema, swelling of feet/ankles, lightheadedness, pre-syncope, dyspnea on exertion or orthopnea Resp: Denies: dyspnea, productive cough, non-productive cough, wheezing, stridor, pain on inspiration, change in phlegm color, hemoptysis or chest congestion GI: Denies: abdominal pain, nausea, vomiting, hematemesis, coffee ground emesis, dysphagia, heartburn, diarrhea, constipation, GI cramping, change in stool character, hematochezia or melena : Denies: flank pain, difficulty voiding, dysuria, urinary frequency, urinary urgency, urinary hesitancy or hematuria Musc: Denies: neck pain, back pain, extremity pain, joint swelling, joint warmth or deformity Neuro: Denies: headache(s), numbness in extremities, weakness in extremities, sensory changes, difficulty walking, frequent falls, dizziness, vertigo, behavioral changes, Slurred speech present or seizure-like activity Psych: Denies: anxiety, depression, suicidal ideation or homicidal ideation Endo: Denies: polyuria, polydipsia, tired all the time, cold intolerance or hot flashes Casey/Lymph: Denies: easy bruising or easy bleeding Medications/Allergies Home Medications ?Medication ?Instructions ?Recorded ?Confirmed ?Last Taken ?Type duloxetine 60 mg capsule,delayed 60 mg PO DAILY 06/20/19 04/10/24 04/09/24 History release sprinkle aspirin 81 mg tablet,delayed 81 mg PO DAILY #30 tabs 06/25/19 04/10/24 04/09/24 Rx release (Farzana Low Dose Aspirin) atorvastatin 20 mg tablet 20 mg PO BEDTIME 07/16/23 04/10/24 04/09/24 History duloxetine 30 mg capsule,delayed 30 mg PO DAILY 07/16/23 04/10/24 04/09/24 History release furosemide 40 mg tablet 40 mg PO DAILY PRN Swelling #2 tabs 07/19/23 04/10/24 07/16/23 Rx acetaminophen 325 mg tablet 650 mg PO Q6H PRN pain/fever 08/03/23 04/10/24 04/09/24 History (Tylenol) bisacodyl 10 mg rectal suppository 10 mg [place] DAILY PRN Constipation 08/03/23 04/10/24 Unknown History docusate sodium 100 mg capsule 100 mg PO DAILY 08/03/23 04/10/24 04/09/24 History (Colace) ketoconazole 2 % shampoo 1 applic topical .2XWEEKLY PRN 08/03/23 04/10/24 Unknown History lather magnesium hydroxide 400 mg/5 mL 30 ml PO DAILY PRN Constipation 08/03/23 04/10/24 Unknown History oral suspension (Milk of Magnesia) sodium phosphates 19 gram-7 118 ml [place] DAILY PRN Constipation 08/03/23 04/10/24 04/09/24 History gram/118 mL enema (Fleet Enema) amino acids-protein hydrolysate 15 1 ea PO DAILY 09/05/23 04/10/24 04/09/24 History gram-101 kcal/30 mL oral liquid hydrocortisone 1 % topical cream 1 applic topical QID PRN RASH/ITCH 09/05/23 04/10/24 Unknown History lactobacillus combination no.4 3 3,000 mmu cells PO DAILY PRN WHILE 09/05/23 04/10/24 04/09/24 History billion cell capsule (Probiotic) ON ANTIBIOTICS polyethylene glycol 3350 17 See Rx Instructions .Route .COMPLEX 09/05/23 04/10/24 04/09/24 History gram/dose oral powder (Miralax) insulin lispro 100 unit/mL See Rx Instructions .Route 09/14/23 04/10/24 04/09/24 Rx subcutaneous pen (Humalog KwikPen .COMPLEX PRN blood sugar #15 mL (U-100) Insulin) pantoprazole 40 mg tablet,delayed 40 mg PO BID 30 days #60 tabs 09/14/23 04/10/24 04/09/24 Rx release tramadol 50 mg tablet 50 mg PO Q8H PRN pain #30 tabs 03/22/24 04/10/24 Unknown Rx fluticasone furoate 100 1 inh inhalation DAILY 04/10/24 04/10/24 04/09/24 History mcg-vilanterol 25 mcg/dose inhalation powder (Breo Ellipta) gabapentin 100 mg capsule 100 mg PO BID 04/10/24 04/10/24 04/09/24 History insulin glargine 100 unit/mL (3 60 unit SUBCUT QPM 04/10/24 04/10/24 04/08/24 History mL) subcutaneous pen (Lantus Solostar U-100 Insulin) insulin lispro 100 unit/mL 12 unit SUBCUT TID 04/10/24 04/10/24 04/09/24 History subcutaneous pen loperamide 2 mg capsule (Imodium 2 mg PO DAILY 04/10/24 04/10/24 Unknown History A-D) ondansetron HCl 4 mg tablet 4 mg PO .Q4-6H 04/10/24 04/10/24 Unknown History tiotropium bromide 1.25 1 puff inhalation DAILY 04/10/24 04/10/24 Unknown History mcg/actuation mist for inhalation (Spiriva Respimat) Allergies Allergy/AdvReac Type Severity Reaction Status Date / Time acetaminophen (From Vicodin) Allergy ADR-Confusi Verified 04/09/24 18:47 on cephalexin Allergy ALGY-Hives Verified 04/09/24 18:47 fluticasone (From Advair Allergy Unknown Verified 04/09/24 18:47 Diskus) hydrocodone (From Vicodin) Allergy ADR-Confusi Verified 04/09/24 18:47 on nitrofurantoin (From Allergy ALGY-Hives Verified 04/09/24 18:47 Macrobid) salmeterol (From Advair Allergy Unknown Verified 04/09/24 18:47 Diskus) Current Medications Generic Name Dose Route Start Last Admin Trade Name Jennifer PRN Reason Stop Dose Admin Metoprolol Tartrate 25 mg 04/10/24 09:00 04/10/24 09:17 Metoprolol Tartrate 25 Mg Tablet PO 25 mg BID KARI Administration Morphine Sulfate 2 mg 04/09/24 20:41 04/10/24 09:16 Morphine 4 Mg/Ml Sdv 1 Ml IVP 2 mg Q4H PRN Administration hip pain Senna/Docusate Sodium 1 tab 04/10/24 09:00 04/10/24 09:17 Sennosides-Docusate Tablet PO 1 tab DAILY KARI Administration PFSH Acute PFSH: Medical History Hypertension Obstructive sleep apnea intolerant of cpap Coronary artery disease CKD (chronic kidney disease) stage 3, GFR 30-59 ml/min Pneumonia Stroke Coffee ground emesis 2021 Nephrolithiasis Peripheral neuropathy Depression Diabetes mellitus type 2 in obese COPD (chronic obstructive pulmonary disease) Chronically uses 2 L per nasal cannula Surgical History History of ankle surgery History of cataract surgery History of bladder surgery History of carpal tunnel surgery History of shoulder surgery History of appendectomy Hx of CABG 2004 Family History Other Dementia Social History Smoking and tobacco/nicotine status: never used tobacco/nicotine Quit status (tobacco/nicotine): has quit using Year quit tobacco: 12/2022 Alcohol intake: never Substance/Drug Use: never Vitals/I&O/Wt Last Vital Signs Temp 98.5 F 04/10/24 07:28 Pulse 83 04/10/24 09:20 Resp 18 04/10/24 09:20 BP 126/65 04/10/24 07:28 Pulse Ox 98 04/10/24 09:20 O2 Del Method Nasal Cannula 04/10/24 09:20 O2 Flow Rate 2 04/10/24 09:20 04/09/24 04/10/2425 22:59 06:59 14:59 Intake Total 240 / 240 Output Total 525 / 525 Balance 240 / 240 -525 / -285 Weight last 48 hrs Weight 150 lb 6.4 oz Weight 153 lb 4.8 oz Weight 169 lb Physical Exam Narrative: Difficult to get a good exam with the patient's dementia Orthopedic exam today. Patient is resting in bed and is quite somnolent. Takes several cues to get her to answer questions at times. She is laying partially on her right side at this time but complains of right hip pain. She is neurovascular intact distally no other gross abnormalities noted. She does not care to have her right leg moved at all. Urinary Catheter Management: Smith: Cath Placed During This Visit: yes Reason for Continuing Indwelling Catheter: Perioperative Use in Selected Surgeries Urinary Catheter Date of Insertion: 04/09/24 Urinary Catheter Time of Insertion: 19:44 Data 04/10/24 05:07 04/10/24 05:07 Micro: Microbiology 09/11/23 14:37 Gram Stain - Preliminary Tissue Anaerobic Culture - Preliminary Tissue Culture - Preliminary Other data: I have reviewed the x-rays demonstrating a comminuted intertrochanteric fracture of the right hip. A&P Assessment and plan (1) Closed fracture of humerus, shaft: Infected humerus Plan is to remove hardware. Do I&D and wound closure. Qualifiers: Encounter type: initial encounter Fracture morphology: other fracture Laterality: right Qualified Code(s): S42.391A - Other fracture of shaft of right humerus, initial encounter for closed fracture (2) Intertrochanteric fracture of right hip: Assessment this time is displaced slightly comminuted intertrochanteric hip fracture of the right hip. Qualifiers: Encounter type: initial encounter Fracture type: closed Fracture alignment: displaced Qualified Code(s): S72.141A - Displaced intertrochanteric fracture of right femur, initial encounter for closed fracture Plan Plan at this time is surgical intervention for repair of this fracture. All risk benefits treatment alternatives were discussed with her and she is agreeable to proceed forward with this surgery at this time. Plan for surgery later today for proximal trochanteric nail PDMP PDMP Reviewed: Not Reviewed Coding Level of Care Code [id number] Diagnoses Other closed fracture of shaft of right humerus, initial encounter S42.391A Encounter type: initial encounter Fracture morphology: other fracture Laterality: right Closed displaced intertrochanteric fracture of right femur, initial encounter S72.141A Encounter type: initial encounter Fracture type: closed Fracture alignment: displaced
[2024-04-10 13:25] LABS: Glucose Point of Care 206 mg/dL (70-110)
[2024-04-10] MEDS: sodium chloride 0.9% 1,000 ML 30 ML IV (13:38)
--- NOTE | 2024-04-10 13:54 | ANES.PREANE2 ---
Pre-Anesthetic Assessment Height/Weight: Height 1.6 m Weight 68.22 kg Temp Pulse Resp BP Pulse Ox O2 Del Method O2 Flow Rate 97.0 F L 74 18 132/103 92 Nasal Cannula 2 04/10/24 13:26 04/10/24 13:26 04/10/24 13:26 04/10/24 13:26 04/10/24 13:26 04/10/24 13:26 04/10/24 13:26 Preop Diagnosis: Right intertrochanteric hip fracture Operation Date: 04/10/24 14:40 Proposed Procedures p Trochanteric Femoral Nail(Right) - Connor Dela Cruz MD Familial anesthetic complications: None Was Beta Solis taken within 24 hours: N/A Was Clonidine taken within 24 hours: N/A Last intake: Intake Last Liquid Date 04/09/24 Last Solid Date 04/09/24 Social Tobacco (former smoker with that quit in december), No alcohol and No tobacco Exam alert, oriented x 3, clear to auscultation bilaterally and regular rate & rhythm Pulmonary Chronic Obstructive Pulmonary Disease and Sleep Apnea CV/HEM Coronary Artery Disease (triple bypass 20 years ago, no problems since) GI Gastroesophageal Reflux Disease Metabolic Diabetes Mellitus and Hyperlipidemia Anesthetic Plan ASA status: 3 Anesthesia: General Risk of > 500 ml blood loss (7ml/kg in children): No Medications/Allergies Home Medications ?Medication ?Instructions ?Recorded ?Confirmed ?Last Taken ?Type duloxetine 60 mg capsule,delayed 60 mg PO DAILY 06/20/19 04/10/24 04/09/24 History release sprinkle aspirin 81 mg tablet,delayed 81 mg PO DAILY #30 tabs 06/25/19 04/10/24 04/09/24 Rx release (Farzana Low Dose Aspirin) atorvastatin 20 mg tablet 20 mg PO BEDTIME 07/16/23 04/10/24 04/09/24 History duloxetine 30 mg capsule,delayed 30 mg PO DAILY 07/16/23 04/10/24 04/09/24 History release furosemide 40 mg tablet 40 mg PO DAILY PRN Swelling #2 tabs 07/19/23 04/10/24 07/16/23 Rx acetaminophen 325 mg tablet 650 mg PO Q6H PRN pain/fever 08/03/23 04/10/24 04/09/24 History (Tylenol) bisacodyl 10 mg rectal suppository 10 mg [place] DAILY PRN Constipation 08/03/23 04/10/24 Unknown History docusate sodium 100 mg capsule 100 mg PO DAILY 08/03/23 04/10/24 04/09/24 History (Colace) ketoconazole 2 % shampoo 1 applic topical .2XWEEKLY PRN 08/03/23 04/10/24 Unknown History lather magnesium hydroxide 400 mg/5 mL 30 ml PO DAILY PRN Constipation 08/03/23 04/10/24 Unknown History oral suspension (Milk of Magnesia) sodium phosphates 19 gram-7 118 ml [place] DAILY PRN Constipation 08/03/23 04/10/24 04/09/24 History gram/118 mL enema (Fleet Enema) amino acids-protein hydrolysate 15 1 ea PO DAILY 09/05/23 04/10/24 04/09/24 History gram-101 kcal/30 mL oral liquid hydrocortisone 1 % topical cream 1 applic topical QID PRN RASH/ITCH 09/05/23 04/10/24 Unknown History lactobacillus combination no.4 3 3,000 mmu cells PO DAILY PRN WHILE 09/05/23 04/10/24 04/09/24 History billion cell capsule (Probiotic) ON ANTIBIOTICS polyethylene glycol 3350 17 See Rx Instructions .Route .COMPLEX 09/05/23 04/10/24 04/09/24 History gram/dose oral powder (Miralax) insulin lispro 100 unit/mL See Rx Instructions .Route 09/14/23 04/10/24 04/09/24 Rx subcutaneous pen (Humalog KwikPen .COMPLEX PRN blood sugar #15 mL (U-100) Insulin) pantoprazole 40 mg tablet,delayed 40 mg PO BID 30 days #60 tabs 09/14/23 04/10/24 04/09/24 Rx release tramadol 50 mg tablet 50 mg PO Q8H PRN pain #30 tabs 03/22/24 04/10/24 Unknown Rx fluticasone furoate 100 1 inh inhalation DAILY 04/10/24 04/10/24 04/09/24 History mcg-vilanterol 25 mcg/dose inhalation powder (Breo Ellipta) gabapentin 100 mg capsule 100 mg PO BID 04/10/24 04/10/24 04/09/24 History insulin glargine 100 unit/mL (3 60 unit SUBCUT QPM 03/07/3004/10/24 04/08/24 History mL) subcutaneous pen (Lantus Solostar U-100 Insulin) insulin lispro 100 unit/mL 12 unit SUBCUT TID 04/10/24 04/10/24 04/09/24 History subcutaneous pen loperamide 2 mg capsule (Imodium 2 mg PO DAILY 04/10/24 04/10/24 Unknown History A-D) ondansetron HCl 4 mg tablet 4 mg PO .Q4-6H 04/10/24 04/10/24 Unknown History tiotropium bromide 1.25 1 puff inhalation DAILY 04/10/24 04/10/24 Unknown History mcg/actuation mist for inhalation (Spiriva Respimat) Allergies Allergy/AdvReac Type Severity Reaction Status Date / Time acetaminophen (From Vicodin) Allergy ADR-Confusi Verified 04/09/24 18:47 on cephalexin Allergy ALGY-Hives Verified 04/09/24 18:47 fluticasone (From Advair Allergy Unknown Verified 04/09/24 18:47 Diskus) hydrocodone (From Vicodin) Allergy ADR-Confusi Verified 04/09/24 18:47 on nitrofurantoin (From Allergy ALGY-Hives Verified 04/09/24 18:47 Macrobid) salmeterol (From Advair Allergy Unknown Verified 04/09/24 18:47 Diskus) Current Medications Generic Name Dose Route Start Last Admin Trade Name Freq PRN Reason Stop Dose Admin Sodium Chloride 1,000 mls @ 30 mls/hr 04/10/24 13:30 04/10/24 13:38 Sodium Chloride 0.9% IV 04/11/24 13:29 30 mls/hr .Q24H KARI Administration Metoprolol Tartrate 25 mg 04/10/24 09:00 04/10/24 09:17 Metoprolol Tartrate 25 Mg Tablet PO 25 mg BID KARI Administration Morphine Sulfate 2 mg 04/09/24 20:41 04/10/24 09:16 Morphine 4 Mg/Ml Sdv 1 Ml IVP 2 mg Q4H PRN Administration hip pain Senna/Docusate Sodium 1 tab 04/10/24 09:00 04/10/24 09:17 Sennosides-Docusate Tablet PO 1 tab DAILY KARI Administration PFSH Anesthesia Medical History Hypertension Obstructive sleep apnea intolerant of cpap Coronary artery disease CKD (chronic kidney disease) stage 3, GFR 30-59 ml/min Pneumonia Stroke Coffee ground emesis 2021 Nephrolithiasis Peripheral neuropathy Depression Diabetes mellitus type 2 in obese COPD (chronic obstructive pulmonary disease) Chronically uses 2 L per nasal cannula Surgical History History of ankle surgery History of cataract surgery History of bladder surgery History of carpal tunnel surgery History of shoulder surgery History of appendectomy Hx of CABG 2004 Family History Other Dementia Social History Smoking and tobacco/nicotine status: never used tobacco/nicotine Quit status (tobacco/nicotine): has quit using Year quit tobacco: 12/2022 Alcohol intake: never Substance/Drug Use: never Data Anesthesia 04/10/24 05:07 04/10/24 05:07 Short CBC 04/09/24 04/10/24 Range/Units 19:00 05:07 WBC 8.66 8.66 (3.29-11.43) 10^3/uL Hgb 12.40 12.90 (11.27-16.99) g/dL Hct 40.6 42.4 (36-47) % MCV 87.5 87.1 (85-98) fl Plt Count 367 342 (157-399) 10^3/cmm Neut % (Auto) 69.8 69.0 % Neut # (Auto) 6.04 5.98 (1.8-7.7) 10^3/uL BMP 04/09/24 04/10/24 19:00 05:07 Sodium 137 139 Potassium 4.6 5.2 H Chloride 96 L 101 Carbon Dioxide 28 27 BUN 35 H 30 H Creatinine 1.2 H 1.1 H Glucose 331 H 253 H Calcium 9.2 9.6 Liver Function 04/09/24 Range/Units 19:00 Total Bilirubin 0.3 (0.15-1.2) mg/dL AST 25 (0-32) U/L ALT 27 (0-33) U/L Alkaline Phosphatase 252 H (35-105) U/L Albumin 3.5 (3.5-5.2) g/dL Urine 04/09/24 04/09/24 Range/Units 19:41 20:29 Urine Color Cancelled Yellow Urine Appearance Cancelled Clear Urine pH Cancelled 5.0 Ur Specific Weaver Cancelled 1.020 Urine Protein Cancelled Trace A Urine Glucose (UA) Cancelled 1+ H Urine Ketones Cancelled Negative Urine Nitrate Cancelled Negative Urine Bilirubin Cancelled Negative Ur Leukocyte Esterase Cancelled Negative Urine RBC Cancelled 0-4 H Urine WBC Cancelled 5-10 H Ur Renal Epithelial Cell Cancelled Coags 04/09/24 19:00 PT 13.60 INR 0.97 APTT 35.4 Cardiac Studies: Echocardiogram 04/09/24
--- NOTE | 2024-04-10 15:16 | XRR_ITS ---
PROCEDURE INFORMATION: Exam: XR Right Hip Exam date and time: 04/10/2024 2:37 PM Age: 78 years old Clinical indication: Device placement; Other: Hip nail; Prior surgery; Surgery date: Post-operative (0-2 days); Surgery type: Femoral nail; Additional info: Or pic, orif TECHNIQUE: Imaging protocol: Radiologic exam of the right hip. Views: 1 view hip with pelvis when performed. COMPARISON: CR (PELVIS, ) 04/09/2024 6:34 PM FINDINGS: Bones/joints: 2 intraoperative C-arm spot films demonstrate an intramedullary jacquelyn, femoral head/neck compression screw and transversely oriented distal femoral shaft fixation screw appropriately positioned. Soft tissues: Intraoperative findings. XR/XR hip RT 2-3V wo/w pel* [id number] IMPRESSION: C-arm films demonstrating appropriate positioning of hardware.
--- NOTE | 2024-04-10 15:28 | P.OP_ITS ---
Operative Report Date of procedure: April 10, 2024 Surgeon: Connor Dela Cruz MD Procedure: Preop diagnosis: Intertrochanteric hip fracture right hip Postop diagnosis: Same Procedure: Closed reduction with proximal trochanteric nail fixation right hip fracture Surgeon: Connor Dela Cruz MD Drug Safety Physician: LISANDRO Marinelli Expertise was necessary for positioning, prepping, assistance with the surgery itself, as well as closure Anesthesia: General EBL: 100 cc Complications: None Indications: Deyanira is a 78-year-old white female who resides in a detention in the area. She was seen in the ED approximately 2 weeks ago for fall and having right hip pain. X-rays and CT scan at that time were found to be negative for any type of fracture. However over the course the last 2 weeks her pain is worsened and gotten more severe to the point she is not able to bear weight on this side. She is brought back to [facility] emergency room where x-rays now demonstrate a displaced comminuted intertrochanteric hip fracture on the right. Patient was admitted through the hospitalist service and orthopedic consultation was obtained. After initial evaluation is felt patient most benefit from internal fixation of the fracture. I did discuss this with the patient but she has a history of dementia and therefore I spoke with her daughter and obtain consent for this. Plan at this time was to proceed with the procedure on this date. Procedure: After obtaining her consent patient was taken on her hospital bed to the operating room placed and had general anesthetic administered. Once good anesthesia achieved patient placed up in the fracture table and positioned appropriately with appropriate padding and secured to the table. Traction boot was applied to the right lower extremity. Left leg was dropped in extension and padded appropriately. Interoperative fluoroscopy at this time was used to reduce the fracture under gentle traction and manipulation. Once good reduction was achieved right hip and leg were prepped and draped usual fashion. After surgical timeout identification of the proximal trochanter was identified and the incision made laterally just superior to this. Sharp this taken out taken all the way down through the IT band exposing the proximal trochanter. A cannulated awl was then positioned using fluoroscopy and digital palpation on the superior tip of the greater trochanter. This then driven down of the greater trochanter to appropriate depth and then a guide jacquelyn placed through this on down the endometrial canal the femur. This is confirmed under fluoroscopic e valuation also. At this point proximal femur was reamed. A size 10 mm diameter by 130 degree angled proximal trochanteric nail was placed on a drill guide and then slid down over this guide jacquelyn and impacted into place again using fluoroscopy to guide this in the place. Eventually it was in position and lag screw drill guide was then placed through a stab wound on the lateral aspect of the thigh as well as through the drill guide attached to the proximal nail. Guidepin was placed in appropriate position and confirmed on both AP and lateral views. Once this was achieved a depth of 01 105 mm identified as the depth of the screw drill hole. Therefore lag screw was drilled to 105 mm and then a lag screw placed up across the guide jacquelyn through the proximal trochanteric nail and into the femoral head neck. Once in position is confirmed under fluoroscopic evaluation. Locking screws placed proximally the locked lag screw to the jacquelyn. Distal drill guide was then placed through a stab wound on the lateral thigh through the drill guide and drill holes placed locking screws major 35 mm and then this is placed through the drill guide and locked the distal portion of the trochanteric nail. Interoperative fluoroscopy now demonstrated adequate positioning and fixation of the fracture. All hardware was removed other than that left him for repair. Wounds are washed with sterile irrigation. Deep structure reapproximated Vicryl [id number] suture subcutaneous tissue 3 proximal 0 Vicryl interrupted sutures and skin was closed with skin staple Wounds were covered with appropriate dressings. Patient was awakened transferred to cover room stable condition
--- NOTE | 2024-04-10 15:54 | P.PN_ITS ---
Subjective 2 Subjective: Patient was seen this morning, she is alert to person, not to place, to time, she can follow commands but is confused this morning she does not appear to be in pain Vitals/I&O/Wt Last Vital Signs Temp 97.2 F L 04/10/24 15:45 Pulse 96 04/10/24 15:45 Resp 16 04/10/24 15:45 BP 167/84 04/10/24 15:45 Pulse Ox 99 04/10/24 15:45 O2 Del Method Simple Mask 04/10/24 15:45 O2 Flow Rate 6 04/10/24 15:51 04/10/24 04/10/24 04/10/24 06:59 14:59 22:59 Intake Total 0 / 0 Output Total 525 / 525 300 / 300 150 / 450 Balance -525 / -285 -300 / -300 -150 / -450 Weight last 48 hrs Weight 68.22 kg Weight 69.536 kg Weight 76.657 kg Physical Exam 2 Const: COMMON NORMALS: no acute distress ORIENTATION/CONSCIOUSNESS: Yes awake, Yes oriented to person and Yes confused; not oriented to place and not oriented to time Resp: COMMON NORMALS: normal respiratory effort, No retractions, No use of accessory muscles and clear to auscultation bilaterally AUSCULTATION: clear to auscultation bilaterally Cardio: COMMON NORMALS: regular rate, regular rhythm, S1 normal heart sound present and S2 normal heart sound present RATE: regular rate RHYTHM: r egular rhythm HEART SOUNDS: S1 normal heart sound present and S2 normal heart sound present GI: COMMON NORMALS: Normal to inspection, nondistended, normoactive bowel sounds present and non-tender Extremity: COMMON NORMALS: no pedal edema Neuro: SENSORIUM/ORIENTATION: Yes oriented to person, No oriented to place and No oriented to time Psych: COMMON NORMALS: mental status grossly normal Urinary Catheter Management: Smith: Cath Placed During This Visit: yes Reason for Continuing Indwelling Catheter: Perioperative Use in Selected Surgeries Urinary Catheter Date of Insertion: 04/09/24 Urinary Catheter Time of Insertion: 19:44 Data 04/10/24 05:07 04/10/24 05:07 A&P Assessment and plan (1) Hypertension: (2) Postural drop in blood pressure: (3) Diabetes: (4) Chronic kidney disease (CKD): (5) Closed intertrochanteric fracture of right hip: Qualifiers: Encounter type: initial encounter Fracture alignment: displaced Q ualified Code(s): S72.141A - Displaced intertrochanteric fracture of right femur, initial encounter for closed fracture (6) COPD (chronic obstructive pulmonary disease): (7) Obstructive sleep apnea: Plan Acute encephalopathy -UA -Monitor mentation Right hip fracture N.p.o. for now Opioids along bowel regimen Smith catheter placed already Orthopedic surgery consulted Chronic kidney disease: Creatinine seems around baseline Type 2 diabetes mellitus, low-dose sliding scale History of anemia requiring transfusion -Monitor Sleep apnea/COPD: Uses 2 L of oxygen at baseline no acute decompensation History of coronary disease status post CABG History of hypertension History of COPD Full code N.p.o. for now DVT prophylaxis SCDs, Lovenox PDMP PDMP Reviewed: Not Reviewed Attestations 2 Medical Necessity Statement*: Patient requires hospitalization of acute encephalopathy, right hip fracture, CKD Diagnoses Hypertension I10 Postural drop in blood pressure I95.1 Diabetes E11.9 Chronic kidney disease (CKD) N18.9 Closed intertrochanteric fracture of right hip S72.141A Encounter type: initial encounter Fracture alignment: displaced COPD (chronic obstructive pulmonary disease) J44.9 Obstructive sleep apnea G47.33
--- NOTE | 2024-04-10 16:20 | ANE.PACU2 ---
Inpatient post-anesthesia follow up: Airway intact: Yes Vital signs: Temperature 97.5 F Pulse Rate 80 Respiratory Rate 16 Blood Pressure 126/87 Pulse Oximetry 95 Oxygen Delivery Me thod Nasal Cannula Oxygen Flow Rate 2 Fraction of Inspir ed Oxygen Hydration adequate: Yes Nausea and vomiting: No Pain level: 1 Mental status: Baseline
[2024-04-10 17:00] LABS: Glucose Point of Care 213 mg/dL (70-110)
[2024-04-10] MEDS: gabapentin 100 mg Capsule PO (17:29)
[2024-04-10] MEDS: pantoprazole DR 40 mg Tablet PO (17:29)
[2024-04-10] MEDS: insulin glargine 100 units/1 mL 60 UNIT SUBCUT (17:30)
[2024-04-10] MEDS: insulin lispro 100 unit/1 mL SUBCUT (17:30)
[2024-04-10] MEDS: clindamycin 600 MG/50 ML PREMIX 100 MG IV (17:32)
[2024-04-10] MEDS: atorvastatin 40 mg Tablet 20 MG PO (20:18)
[2024-04-10] MEDS: enoxaparin 40 mg/0.4 mL Syringe SUBCUT (20:18)
[2024-04-10] MEDS: budesonide 0.5 mg/2 mL Neb INHALATION (21:03)
[2024-04-10] MEDS: ipratropium 0.5 mg/2.5 mL Neb INHALATION (21:03)
[2024-04-10] MEDS: albuterol 2.5 mg/3 mL Neb INHALATION (21:04)
[2024-04-10 21:47] LABS: Glucose Point of Care 391 mg/dL (70-110)
--- NOTE | 2024-04-10 23:45 | PC.NURSE ---
pt pulled her own villa cath out, balloon intact.
[2024-04-11] VITALS (11 sets, daily range): BP systolic 125–155; BP diastolic 58–87; PULSE 71–102; RESP 15–20; TEMP 36.4–37; O2SAT 91–95; BMI 27.8
[2024-04-11] MEDS: clindamycin 600 MG/50 ML PREMIX 100 MG IV ×2 (01:29→08:59)
[2024-04-11] MEDS: HYDROcodone-acetaminophen 5-325 mg Tablet PO ×2 (05:30→15:18)
[2024-04-11 06:19] LABS: Basophils # 0.1 10^3/uL (0.0-0.1); Basophils % 0.5 %; Eosinophils % 0.2 %; Hematocrit 37.2 % (36-47); Lymphocytes # 1.1 10^3/uL (0.8-4.8); Lymphocytes % 11.3 %; Mean Corpuscular HGB Conc 29.8 g/dL (30-55); Mean Corpuscular Hemoglobin 26.7 pg (27-33); Mean Corpuscular Volume 89.6 fl (85-98); Mean Platelet Volume 8.4 fL (7.4-10.4); Monocytes # 0.8 10^3/uL (0.2-0.9); Monocytes % 7.8 %; Neutrophils # 7.63 10^3/uL (1.8-7.7); Neutrophils % 79.3 %; Nucleated Red Blood Cells % 0 %; Platelet Count 331 10^3/cmm (157-399); Red Blood Count 4.15 10^6/uL (3.85-5.65); Red Cell Distribution Width 15.6 % (12.1-15.1); White Blood Count 9.63 10^3/uL (3.29-11.43)
[2024-04-11 06:23] LABS: Glucose Point of Care 184 mg/dL (70-110)
[2024-04-11 06:38] LABS: Anion Gap 15.1 (5-19); Blood Urea Nitrogen 32 mg/dL (8-23); Calcium 9.1 mg/dL (8.5-10.5); Carbon Dioxide 28 mmol/L (22-29); Chloride 102 mmol/L (98-107); Creatinine Clr Calc Pharmacy 37.7881; Glucose 190 mg/dL (65-115); Osmolality Calculated 302 mOsm/kg (285-295); Potassium 5.1 mmol/L (3.5-5.1); Sodium 140 mmol/L (136-145)
[2024-04-11] MEDS: ipratropium 0.5 mg/2.5 mL Neb INHALATION ×2 (08:34→11:02)
[2024-04-11] MEDS: budesonide 0.5 mg/2 mL Neb INHALATION ×2 (08:34→20:08)
[2024-04-11] MEDS: albuterol 2.5 mg/3 mL Neb INHALATION ×4 (08:34→20:08)
[2024-04-11] MEDS: duloxetine 60 mg Capsule PO (08:58)
[2024-04-11] MEDS: pantoprazole DR 40 mg Tablet PO ×2 (08:58→18:10)
[2024-04-11] MEDS: polyethylene glycol 3350 Pkt 17 gm PO (08:58)
[2024-04-11] MEDS: duloxetine 30 mg Capsule PO (08:58)
[2024-04-11] MEDS: gabapentin 100 mg Capsule PO ×2 (08:58→18:10)
[2024-04-11] MEDS: insulin lispro 100 unit/1 mL SUBCUT ×3 (08:58→18:10)
[2024-04-11] MEDS: docusate sodium 100 mg Capsule PO (08:58)
[2024-04-11] MEDS: loperamide 2 mg Capsule PO (08:58)
[2024-04-11] MEDS: aspirin 325 mg EC Tablet PO (08:58)
[2024-04-11 11:33] LABS: Glucose Point of Care 229 mg/dL (70-110)
--- NOTE | 2024-04-11 13:23 | P.PN_ITS ---
Subjective 2 Subjective: Patient is up to a chair when visited today. She complains of pain in her right hip as to be expected secondary to surgery yesterday. Otherwise no other problems. She voices no other complaints Medications: Reviewed: Yes Vitals/I&O/Wt Last Vital Signs Temp 97.5 F L 04/11/24 11:37 Pulse 72 04/11/24 11:37 Resp 18 04/11/24 11:37 BP 136/64 04/11/24 11:37 Pulse Ox 92 04/11/24 11:37 O2 Del Method Nasal Cannula 04/11/24 11:37 O2 Flow Rate 2 04/11/24 11:03 04/10/24 04/11/24 04/11/24 22:59 06:59 14:59 Intake Total 170 / 170 50 / 220 360 / 360 Output Total 200 / 500 Balance -30 / -330 50 / -280 360 / 360 Weight last 48 hrs Weight 157 lb 8 oz Weight 150 lb 6.4 oz Weight 153 lb 4.8 oz Weight 169 lb Physical Exam 2 Narrative: On exam today for special I can see the dressing is clear. Neurovascular intact distally in the right lower extremity. No other gross abnormalities Urinary Catheter Management: Smith: Cath Placed During This Visit: yes Reason for Continuing Indwelling Catheter: Perioperative Use in Selected Surgeries Urinary Catheter Date of Insertion: 04/09/24 Urinary Catheter Time of Insertion: 19:44 Data 04/11/24 06:03 04/11/24 06:03 Micro: Microbiology 04/09/24 20:29 Urine Culture - Preliminary Urine,Clean Catch A&P Assessment and plan (1) Status post closed fracture of right hip: Tolerated fixation of right intertrochanteric hip fracture Plan Patient's status post closed reduction with internal fixation of right hip fracture. All appears to be progressing well. Will keep her at toe-touch weightbearing for a couple weeks as we let fracture fragments settle into start to heal. PDMP PDMP Reviewed: Not Reviewed Attestations 2 Medical Necessity Statement*: Patient in need of pain control status post surgery for stabilization and hip fracture. Coding Level of Care Code 93328 Diagnoses Status post closed fracture of right hip Z87.81
--- NOTE | 2024-04-11 15:03 | P.PN_ITS ---
Subjective 2 Subjective: Patient was seen this morning she is alert to person, to place, not to time she follows commands, denies any nausea, vomiting, chest pain, no shortness of breath Vitals/I&O/Wt Last Vital Signs Temp 97.5 F L 04/11/24 11:37 Pulse 72 04/11/24 11:37 Resp 18 04/11/24 11:37 BP 136/64 04/11/24 11:37 Pulse Ox 92 04/11/24 11:37 O2 Del Method Nasal Cannula 04/11/24 11:37 O2 Flow Rate 2 04/11/24 11:03 04/11/24 04/11/24 04/11/24 06:59 14:59 22:59 Intake Total 50 / 220 360 / 360 Balance 50 / -280 360 / 360 Weight last 48 hrs Weight 71.441 kg Weight 68.22 kg Weight 69.536 kg Weight 76.657 kg Physical Exam 2 Const: COMMON NORMALS: no acute distress ORIENTATION/CONSCIOUSNESS: Yes awake, Yes oriented to person and Yes oriented to place Resp: COMMON NORMALS: normal respiratory effort, No retractions, No use of accessory muscles and clear to auscultation bilaterally AUSCULTATION: clear to auscultation bilaterally Cardio: COMMON NORMALS: regular rate, regular rhythm, S1 normal heart sound present and S2 normal heart sound present RATE: regular rate RHYTHM: r egular rhythm HEART SOUNDS: S1 normal heart sound present and S2 normal heart sound present GI: COMMON NORMALS: Normal to inspection, nondistended, normoactive bowel sounds present and non-tender Extremity: COMMON NORMALS: no pedal edema OTHER: Right hip surgical site clean dry Neuro: SENSORIUM/ORIENTATION: Yes oriented to person and Yes oriented to place Psych: COMMON NORMALS: mental status grossly normal Urinary Catheter Management: Smith: Cath Placed During This Visit: yes Reason for Continuing Indwelling Catheter: Perioperative Use in Selected Surgeries Urinary Catheter Date of Insertion: 04/09/24 Urinary Catheter Time of Insertion: 19:44 Data 04/11/24 06:03 04/11/24 06:03 Micro: Microbiology 04/09/24 20:29 Urine Culture - Preliminary Urine,Clean Catch A&P Assessment and plan (1) Hypertension: (2) Postural drop in blood pressure: (3) Diabetes: (4) Chronic kidney disease (CKD): (5) Closed intertrochanteric fracture of right hip: Qualifiers: Encounter type: initial encounter Fracture alignment: displaced Q ualified Code(s): S72.141A - Displaced intertrochanteric fracture of right femur, initial encounter for closed fracture (6) COPD (chronic obstructive pulmonary disease): (7) Obstructive sleep apnea: Plan Acute encephalopathy, resolved -Monitor mentation Right hip fracture Status post surgical intervention Opioids along bowel regimen Smith catheter Orthopedic surgery consulted Chronic kidney disease: Creatinine seems around baseline Type 2 diabetes mellitus, low-dose sliding scale, Lantus 45 units daily History of anemia requiring transfusion -Monitor Sleep apnea/COPD: Uses 2 L of oxygen at baseline no acute decompensation History of coronary disease status post CABG History of hypertension History of COPD Full code Cardiac diet DVT prophylaxis SCDs, Lovenox PDMP PDMP Reviewed: Not Reviewed Attestations 2 Medical Necessity Statement*: Patient requires hospitalization for right hip fracture Diagnoses Hypertension I10 Postural drop in blood pressure I95.1 Diabetes E11.9 Chronic kidney disease (CKD) N18.9 Closed intertrochanteric fracture of right hip S72.141A Encounter type: initial encounter Fracture alignment: displaced COPD (chronic obstructive pulmonary disease) J44.9 Obstructive sleep apnea G47.33
--- NOTE | 2024-04-11 15:42 | PC.SOCIAL ---
IMM updated IMM dated and initialed, copy given to patient and copy placed in chart
[2024-04-11 16:39] LABS: Glucose Point of Care 219 mg/dL (70-110)
[2024-04-11] MEDS: metoprolol tartrate 25 mg Tablet PO (18:10)
[2024-04-11] MEDS: insulin glargine 100 units/1 mL 45 UNIT SUBCUT (18:11)
--- NOTE | 2024-04-11 19:40 | PC.NURSE ---
Notified Dr. Chawla of bladder scan 408ML. Dr. Chawla gave verbal orders to do a strait cath and watch patient throuhg the night.
[2024-04-11] MEDS: atorvastatin 40 mg Tablet 20 MG PO (21:13)
[2024-04-11] MEDS: enoxaparin 40 mg/0.4 mL Syringe SUBCUT (21:13)
[2024-04-12] VITALS (10 sets, daily range): BP systolic 108–138; BP diastolic 48–84; PULSE 53–92; RESP 15–18; TEMP 36.4–37; O2SAT 94–98; BMI 28.0
[2024-04-12] MEDS: HYDROcodone-acetaminophen 5-325 mg Tablet PO ×4 (01:39→23:15)
[2024-04-12 05:27] LABS: Basophils # 0.1 10^3/uL (0.0-0.1); Basophils % 0.8 %; Eosinophils # 0.4 10^3/uL (0.0-0.8); Eosinophils % 4.5 %; Hematocrit 34.4 % (36-47); Lymphocytes # 1.9 10^3/uL (0.8-4.8); Lymphocytes % 21.5 %; Mean Corpuscular HGB Conc 29.9 g/dL (30-55); Mean Corpuscular Hemoglobin 26.7 pg (27-33); Mean Corpuscular Volume 89.1 fl (85-98); Mean Platelet Volume 9.1 fL (7.4-10.4); Monocytes # 0.8 10^3/uL (0.2-0.9); Monocytes % 8.8 %; Neutrophils # 5.57 10^3/uL (1.8-7.7); Neutrophils % 63.5 %; Nucleated Red Blood Cells % 0 %; Platelet Count 250 10^3/cmm (157-399); Red Blood Count 3.86 10^6/uL (3.85-5.65); Red Cell Distribution Width 15.7 % (12.1-15.1); White Blood Count 8.76 10^3/uL (3.29-11.43)
[2024-04-12 05:53] LABS: Anion Gap 13.7 (5-19); Blood Urea Nitrogen 28 mg/dL (8-23); Calcium 8.9 mg/dL (8.5-10.5); Carbon Dioxide 29 mmol/L (22-29); Chloride 102 mmol/L (98-107); Creatinine Clr Calc Pharmacy 45.4143; Glucose 127 mg/dL (65-115); Osmolality Calculated 297 mOsm/kg (285-295); Potassium 4.7 mmol/L (3.5-5.1); Sodium 140 mmol/L (136-145)
[2024-04-12 05:55] LABS: Glucose Point of Care 256 mg/dL (70-110)
[2024-04-12 05:55] LABS: Glucose Point of Care 160 mg/dL (70-110)
[2024-04-12 05:55] LABS: Glucose Point of Care 124 mg/dL (70-110)
[2024-04-12] MEDS: budesonide 0.5 mg/2 mL Neb INHALATION ×2 (07:45→20:19)
[2024-04-12] MEDS: albuterol 2.5 mg/3 mL Neb INHALATION ×2 (07:45→20:19)
[2024-04-12] MEDS: insulin lispro 100 unit/1 mL SUBCUT ×2 (08:08→18:29)
[2024-04-12] MEDS: duloxetine 30 mg Capsule PO (08:09)
[2024-04-12] MEDS: sennosides-docusate Tablet 1 TAB PO (08:09)
[2024-04-12] MEDS: gabapentin 100 mg Capsule PO ×2 (08:09→18:28)
[2024-04-12] MEDS: pantoprazole DR 40 mg Tablet PO ×2 (08:09→18:28)
[2024-04-12] MEDS: aspirin 325 mg EC Tablet PO (08:09)
[2024-04-12] MEDS: docusate sodium 100 mg Capsule PO (08:09)
[2024-04-12] MEDS: duloxetine 60 mg Capsule PO (08:09)
[2024-04-12] MEDS: loperamide 2 mg Capsule PO (08:09)
[2024-04-12] MEDS: polyethylene glycol 3350 Pkt 17 gm PO (08:10)
[2024-04-12] MEDS: metoprolol tartrate 25 mg Tablet PO ×2 (08:19→18:28)
--- NOTE | 2024-04-12 10:41 | P.PN_ITS ---
Subjective 2 Subjective: Patient is awake and alert sitting up in bed today. She indicates that she her hip is less painful today. Otherwise has no other complaints. Medications: Reviewed: Yes Vitals/I&O/Wt Last Vital Signs Temp 98.6 F 04/12/24 08:00 Pulse 54 L 04/12/24 08:00 Resp 18 04/12/24 08:00 BP 128/64 04/12/24 08:19 Pulse Ox 94 04/12/24 08:00 O2 Del Method Room Air 04/12/24 08:00 O2 Flow Rate 2 04/12/24 08:00 04/11/24 04/12/24 04/12/24 22:59 06:59 14:59 Intake Total 170 / 530 1700 / 2230 Output Total 650 / 650 Balance -480 / -120 1700 / 1580 Weight last 48 hrs Weight 158 lb Weight 157 lb 8 oz Physical Exam 2 Narrative: On exam today patient is sitting in bed. Dressings are clear. She is neurovascular intact distally right lower extremity. Has some pain with manipulation of the leg. Urinary Catheter Management: Smith: Cath Placed During This Visit: yes Reason for Continuing Indwelling Catheter: Perioperative Use in Selected Surgeries Urinary Catheter Date of Insertion: 04/09/24 Urinary Catheter Time of Insertion: 19:44 Data 04/12/24 04:30 04/12/24 04:30 Micro: Microbiology 04/09/24 20:29 Urine Culture - Preliminary Urine,Clean Catch A&P Assessment and plan (1) Closed intertrochanteric fracture of right hip: Status post ORIF with trochanteric nail fixation of right hip fracture Qualifiers: Encounter type: initial encounter Fracture alignment: displaced Q ualified Code(s): S72.141A - Displaced intertrochanteric fracture of right femur, initial encounter for closed fracture Plan Plan at this time is continuing with physical therapy, help with ADLs, and pain control. Patient will need to be placed back in her [facility] once stable enough for discharge. Will discontinue Smith catheter today Will have dressing changed today PDMP PDMP Reviewed: Not Reviewed Attestations 2 Medical Necessity Statement*: Status post hip fracture with surgical repair. Still in need of pain control, physical therapy, and assistance with ADLs Coding Level of Care Code 60170 Diagnoses Closed intertrochanteric fracture of right hip S72.141A Encounter type: initial encounter Fracture alignment: displaced
[2024-04-12 12:19] LABS: Glucose Point of Care 138 mg/dL (70-110)
--- NOTE | 2024-04-12 15:30 | P.PN_ITS ---
Subjective 2 Subjective: Patient was seen this morning, she alert to person, to place, not to time she follows all commands, has no complaint this morning Vitals/I&O/Wt Last Vital Signs Temp 98.3 F 04/12/24 12:00 Pulse 54 L 04/12/24 12:00 Resp 16 04/12/24 12:00 BP 110/48 04/12/24 12:00 Pulse Ox 96 04/12/24 12:00 O2 Del Method Nasal Cannula 04/12/24 12:00 O2 Flow Rate 2 04/12/24 11:48 04/12/24 04/12/24 04/12/24 06:59 14:59 22:59 Intake Total 1700 / 2230 240 / 240 Balance 1700 / 1580 240 / 240 Weight last 48 hrs Weight 71.668 kg Weight 71.441 kg Physical Exam 2 Const: COMMON NORMALS: no acute distress ORIENTATION/CONSCIOUSNESS: Yes awake, Yes oriented to person and Yes oriented to place Resp: COMMON NORMALS: normal respiratory effort, No retractions, No use of accessory muscles and clear to auscultation bilaterally AUSCULTATION: clear to auscultation bilaterally Cardio: COMMON NORMALS: regular rate, regular rhythm, S1 normal heart sound present and S2 normal heart sound present RATE: regular rate RHYTHM: r egular rhythm HEART SOUNDS: S1 normal heart sound present and S2 normal heart sound present GI: COMMON NORMALS: Normal to inspection, nondistended, normoactive bowel sounds present and non-tender Extremity: COMMON NORMALS: no pedal edema Neuro: SENSORIUM/ORIENTATION: Yes oriented to person and Yes oriented to place Psych: COMMON NORMALS: mental status grossly normal Urinary Catheter Management: Smith: Cath Placed During This Visit: yes Reason for Continuing Indwelling Catheter: Perioperative Use in Selected Surgeries Urinary Catheter Date of Insertion: 04/09/24 Urinary Catheter Time of Insertion: 19:44 Data 04/12/24 04:30 04/12/24 04:30 Micro: Microbiology 04/09/24 20:29 Urine Culture - Final Urine,Clean Catch A&P Assessment and plan (1) Hypertension: (2) Postural drop in blood pressure: (3) Diabetes: (4) Chronic kidney disease (CKD): (5) Closed intertrochanteric fracture of right hip: Qualifiers: Encounter type: initial encounter Fracture alignment: displaced Q ualified Code(s): S72.141A - Displaced intertrochanteric fracture of right femur, initial encounter for closed fracture (6) COPD (chronic obstructive pulmonary disease): (7) Obstructive sleep apnea: Plan Acute encephalopathy, resolved -Monitor mentation Right hip fracture Status post surgical intervention Opioids along bowel regimen Smith catheter to be removed today Orthopedic surgery consulted Chronic kidney disease: Creatinine seems around baseline Type 2 diabetes mellitus, low-dose sliding scale, Lantus 45 units daily History of anemia requiring transfusion -Monitor Sleep apnea/COPD: Uses 2 L of oxygen at baseline no acute decompensation History of coronary disease status post CABG History of hypertension History of COPD Full code Cardiac diet DVT prophylaxis SCDs, Lovenox PDMP PDMP Reviewed: Not Reviewed Attestations 2 Medical Necessity Statement*: Patient requires hospitalization for right hip fracture status post surgical invention Diagnoses Hypertension I10 Postural drop in blood pressure I95.1 Diabetes E11.9 Chronic kidney disease (CKD) N18.9 Closed intertrochanteric fracture of right hip S72.141A Encounter type: initial encounter Fracture alignment: displaced COPD (chronic obstructive pulmonary disease) J44.9 Obstructive sleep apnea G47.33
[2024-04-12 17:11] LABS: Glucose Point of Care 223 mg/dL (70-110)
[2024-04-12] MEDS: insulin glargine 100 units/1 mL 45 UNIT SUBCUT (18:31)
--- NOTE | 2024-04-12 19:22 | PC.NURSE ---
Notified Dr. Chawla patient had a bladder scan of [address] Chawla gave verbal orders to place a villa back due to urinary retention.
[2024-04-12 20:48] LABS: Glucose Point of Care 209 mg/dL (70-110)
[2024-04-12] MEDS: enoxaparin 40 mg/0.4 mL Syringe SUBCUT (21:06)
[2024-04-12] MEDS: atorvastatin 40 mg Tablet 20 MG PO (21:06)
[2024-04-13] VITALS (9 sets, daily range): BP systolic 96–145; BP diastolic 42–71; PULSE 50–79; RESP 14–18; TEMP 36.4–37.1; O2SAT 88–98
[2024-04-13 04:22] LABS: Basophils # 0.1 10^3/uL (0.0-0.1); Basophils % 0.6 %; Eosinophils # 0.4 10^3/uL (0.0-0.8); Eosinophils % 5.3 %; Hematocrit 35.9 % (36-47); Lymphocytes % 24.5 %; Mean Corpuscular Hemoglobin 26.1 pg (27-33); Mean Platelet Volume 8.9 fL (7.4-10.4); Monocytes # 0.6 10^3/uL (0.2-0.9); Monocytes % 7.9 %; Neutrophils # 4.83 10^3/uL (1.8-7.7); Neutrophils % 60.6 %; Nucleated Red Blood Cells % 0 %; Platelet Count 285 10^3/cmm (157-399); Red Blood Count 3.99 10^6/uL (3.85-5.65); Red Cell Distribution Width 15.6 % (12.1-15.1); White Blood Count 7.97 10^3/uL (3.29-11.43)
[2024-04-13 04:48] LABS: Anion Gap 13.9 (5-19); Blood Urea Nitrogen 29 mg/dL (8-23); Calcium 8.9 mg/dL (8.5-10.5); Carbon Dioxide 27 mmol/L (22-29); Chloride 101 mmol/L (98-107); Creatinine Clr Calc Pharmacy 37.8453; Glucose 151 mg/dL (65-115); Osmolality Calculated 293 mOsm/kg (285-295); Potassium 4.9 mmol/L (3.5-5.1); Sodium 137 mmol/L (136-145)
[2024-04-13 06:33] LABS: Glucose Point of Care 132 mg/dL (70-110)
[2024-04-13] MEDS: albuterol 2.5 mg/3 mL Neb INHALATION ×3 (07:56→21:13)
[2024-04-13] MEDS: budesonide 0.5 mg/2 mL Neb INHALATION ×2 (07:56→21:13)
[2024-04-13] MEDS: polyethylene glycol 3350 Pkt 17 gm PO (09:20)
[2024-04-13] MEDS: aspirin 325 mg EC Tablet PO (09:21)
[2024-04-13] MEDS: loperamide 2 mg Capsule PO (09:22)
[2024-04-13] MEDS: duloxetine 60 mg Capsule PO (09:22)
[2024-04-13] MEDS: duloxetine 30 mg Capsule PO (09:22)
[2024-04-13] MEDS: docusate sodium 100 mg Capsule PO (09:22)
[2024-04-13] MEDS: metoprolol tartrate 25 mg Tablet PO (09:22)
[2024-04-13] MEDS: pantoprazole DR 40 mg Tablet PO ×2 (09:22→17:48)
[2024-04-13] MEDS: sennosides-docusate Tablet 1 TAB PO (09:22)
[2024-04-13] MEDS: gabapentin 100 mg Capsule PO ×2 (09:22→17:48)
[2024-04-13] MEDS: HYDROcodone-acetaminophen 5-325 mg Tablet PO ×2 (09:23→23:51)
[2024-04-13 11:26] LABS: Glucose Point of Care 256 mg/dL (70-110)
--- NOTE | 2024-04-13 11:48 | P.PN_ITS ---
Subjective 2 Subjective: Patient resting bed today. Voices no concerns Medications: Reviewed: Yes Vitals/I&O/Wt Last Vital Signs Temp 97.9 F 04/13/24 08:00 Pulse 68 04/13/24 08:00 Resp 14 04/13/24 08:00 BP 118/68 04/13/24 08:00 Pulse Ox 96 04/13/24 08:00 O2 Del Method Nasal Cannula 04/13/24 08:00 O2 Flow Rate 2 04/13/24 08:00 04/12/24 04/13/24 04/13/24 22:59 07:59 14:59 Intake Total 240 / 240 Output Total 450 / 450 Balance -450 / -210 240 / 240 Weight last 48 hrs Weight 158 lb 1.6 oz Weight 158 lb Physical Exam 2 Narrative: Dressings clear on the right lower extremity hip region. Neurovascular intact distally Urinary Catheter Management: Smith: Cath Placed During This Visit: yes Reason for Continuing Indwelling Catheter: Acute Urinary Retention or Obstruction Urinary Catheter Date of Insertion: 04/09/24 Urinary Catheter Time of Insertion: 19:44 Data 04/13/24 04:01 04/13/24 04:01 Micro: Microbiology 04/09/24 20:29 Urine Culture - Final Urine,Clean Catch A&P Assessment and plan (1) Status post closed fracture of right hip: Status post internal fixation of right intertrochanteric hip fracture. Patient is progressing well Plan Plan at this time is continuing with dressing changes. Patient could be discharged back to her shelter at any time once medical team feels she is stable. PDMP PDMP Reviewed: Not Reviewed Attestations 2 Medical Necessity Statement*: Status post hip fracture in need of continued physical therapy, pain control, assistance with ADLs Coding Level of Care Code 38222 Diagnoses Status post closed fracture of right hip Z87.81
[2024-04-13] MEDS: insulin lispro 100 unit/1 mL SUBCUT ×2 (12:04→17:49)
--- NOTE | 2024-04-13 13:47 | P.PN_ITS ---
Subjective 2 Subjective: Patient was seen this morning, she has no complaints, no nausea, no vomiting, no abdominal pain -It was reported to me by nursing staff that patient has she has an open area under her left breast, concerning for possible malignancy -Discussed with patient, I asked patient if I could take a look at this area due to the concern, however patient declined, I also offered to have a female bander operator to be at bedside during examination however she declines, she would prefer for a female physician to take a look at this area -Discussed she can follow-up with her [facility] physician as outpatient, she is in agreement Vitals/I&O/Wt Last Vital Signs Temp 98.6 F 04/13/24 12:00 Pulse 79 04/13/24 12:00 Resp 15 04/13/24 12:00 BP 101/56 04/13/24 12:00 Pulse Ox 93 04/13/24 12:00 O2 Del Method Room Air 04/13/24 12:00 O2 Flow Rate 2 04/13/24 08:00 04/12/24 04/13/24 04/13/24 22:59 07:59 14:59 Intake Total 480 / 480 Output Total 450 / 450 Balance -450 / -210 480 / 480 Weight last 48 hrs Weight 71.713 kg Weight 71.668 kg Physical Exam 2 Const: COMMON NORMALS: no acute distress ORIENTATION/CONSCIOUSNESS: Yes awake, Yes oriented to person and Yes oriented to place Resp: COMMON NORMALS: normal respiratory effort, No retractions, No use of accessory muscles and clear to auscultation bilaterally AUSCULTATION: clear to auscultation bilaterally Cardio: COMMON NORMALS: regular rate, regular rhythm, S1 normal heart sound present and S2 normal heart sound present RATE: regular rate RHYTHM: r egular rhythm HEART SOUNDS: S1 normal heart sound present and S2 normal heart sound present GI: COMMON NORMALS: Normal to inspection, nondistended, normoactive bowel sounds present and non-tender Extremity: COMMON NORMALS: no pedal edema Neuro: SENSORIUM/ORIENTATION: Yes oriented to person and Yes oriented to place Psych: COMMON NORMALS: mental status grossly normal Urinary Catheter Management: Smith: Cath Placed During This Visit: yes Reason for Continuing Indwelling Catheter: Acute Urinary Retention or Obstruction Urinary Catheter Date of Insertion: 04/09/24 Urinary Catheter Time of Insertion: 19:44 Data 04/13/24 04:01 04/13/24 04:01 Micro: Microbiology 04/09/24 20:29 Urine Culture - Final Urine,Clean Catch A&P Assessment and plan (1) Hypertension: (2) Postural drop in blood pressure: (3) Diabetes: (4) Chronic kidney disease (CKD): (5) Closed intertrochanteric fracture of right hip: Qualifiers: Encounter type: initial encounter Fracture alignment: displaced Q ualified Code(s): S72.141A - Displaced intertrochanteric fracture of right femur, initial encounter for closed fracture (6) COPD (chronic obstructive pulmonary disease): (7) Obstructive sleep apnea: Plan Acute encephalopathy, resolved -Monitor mentation Acute urinary retention, Smith catheter to be placed back in, will monitor, voiding trial today Right hip fracture Status post surgical intervention Opioids along bowel regimen Smith catheter to be removed today Orthopedic surgery consulted Chronic kidney disease: Creatinine seems around baseline Type 2 diabetes mellitus, low-dose sliding scale, Lantus 45 units daily Left breast, concerning area, will have her follow-up with primary care History of anemia requiring transfusion -Monitor Sleep apnea/COPD: Uses 2 L of oxygen at baseline no acute decompensation History of coronary disease status post CABG History of hypertension History of COPD Full code Cardiac diet DVT prophylaxis SCDs, Lovenox PDMP PDMP Reviewed: Not Reviewed Attestations 2 Medical Necessity Statement*: Patient requires hospitalization for right hip fracture Diagnoses Hypertension I10 Postural drop in blood pressure I95.1 Diabetes E11.9 Chronic kidney disease (CKD) N18.9 Closed intertrochanteric fracture of right hip S72.141A Encounter type: initial encounter Fracture alignment: displaced COPD (chronic obstructive pulmonary disease) J44.9 Obstructive sleep apnea G47.33
[2024-04-13 16:37] LABS: Glucose Point of Care 331 mg/dL (70-110)
[2024-04-13] MEDS: insulin glargine 100 units/1 mL 45 UNIT SUBCUT (17:48)
[2024-04-13 20:34] LABS: Glucose Point of Care 200 mg/dL (70-110)
[2024-04-13] MEDS: atorvastatin 40 mg Tablet 20 MG PO (21:36)
[2024-04-13] MEDS: enoxaparin 40 mg/0.4 mL Syringe SUBCUT (21:36)
[2024-04-14 04:00] VITALS: BP 128/77; PULSE 60; RESP 15; TEMP 36.6; O2SAT 96
[2024-04-14] MEDS: HYDROcodone-acetaminophen 5-325 mg Tablet PO (06:09)
[2024-04-14 06:23] LABS: Glucose Point of Care 150 mg/dL (70-110)
[2024-04-14 08:00] VITALS: BP 110/58; PULSE 54; PULSE 56; RESP 14; RESP 17; TEMP 36.4; O2SAT 92; O2SAT 96
[2024-04-14] MEDS: albuterol 2.5 mg/3 mL Neb INHALATION (08:05)
[2024-04-14] MEDS: budesonide 0.5 mg/2 mL Neb INHALATION (08:05)
[2024-04-14 08:20] VITALS: PULSE 57
[2024-04-14] MEDS: polyethylene glycol 3350 Pkt 17 gm PO (09:12)
--- NOTE | 2024-04-14 11:27 | PM.DCS ---
Discharge Providers Date of Admission: 04/09/24 19:18 Date of Discharge: April 14, 2024 Attending Provider at Admission: Yoly Winter MD Attending Provider at Discharge: Farshad Chawla MD Primary Care Provider: Alem Auguste Diagnoses at Discharge Discharge Diagnosis (1) Hypertension: Status: Chronic (2) Postural drop in blood pressure: Status: Acute (3) Diabetes: Status: Acute (4) Chronic kidney disease (CKD): Status: Acute (5) Closed intertrochanteric fracture of right hip: Status: Acute Qualifiers: Encounter type: initial encounter Fracture alignment: displaced Qualified Code(s): S72.141A - Displaced intertrochanteric fracture of right femur, initial encounter for closed fracture (6) COPD (chronic obstructive pulmonary disease): Status: Acute (7) Obstructive sleep apnea: Status: Chronic Permanent problem details: intolerant of cpap Reason for Visit Reason for Visit: right hip pain Hospital Course Hospital Course This is a 78-year-old female with a past medical history of CABG, CAD, sleep apnea, hypertension, CVA, who presents [facility] for right hip pain and fall Patient was admitted to [facility] for right hip fracture, orthopedic service was consulted, underwent surgical intervention, tolerated procedure well. Patient will be discharged to [facility], aspirin 325 mg daily for DVT prophylaxis, hydrocodone as needed for pain control Patient has a skin lesion under her left breast, she declined for me to examine it as she would prefer a female provider, declined blending supervisor, discussed with her to follow-up with her primary care physician Alem Auguste. Patient voiced understanding, all consents are complete to proceed Physical Exam Const: COMMON NORMALS: no acute distress ORIENTATION/CONSCIOUSNESS: Yes awake, Yes oriented to person and Yes oriented to place; not oriented to time Resp: COMMON NORMALS: normal respiratory effort, No retractions, No use of accessory muscles and clear to auscultation bilaterally AUSCULTATION: clear to auscultation bilaterally Cardio: COMMON NORMALS: regular rate, regular rhythm, S1 normal heart sound present and S2 normal heart sound present RATE: regular rate RHYTHM: regular rhythm HEART SOUNDS: S1 normal heart sound present and S2 normal heart sound present GI: COMMON NORMALS: Normal to inspection, nondistended, normoactive bowel sounds present and non-tender Extremity: COMMON NORMALS: no pedal edema Neuro: SENSORIUM/ORIENTATION: Yes oriented to person, Yes oriented to place and No oriented to time Urinary Catheter Management: Smith: Cath Placed During This Visit: yes, but has since been removed by the nurse Reason for Continuing Indwelling Catheter: Decision to DC Catheter Urinary Catheter Date of Insertion: 04/09/24 Urinary Catheter Time of Insertion: 19:44 Date Urinary Catheter Removed: 04/13/24 Time Urinary Catheter Discontinued: 17:55 Discharge Data Studies Completed and Pending Completed Studies During Hospitalization Category Date Time Status XR chest 1V portable [id number] Stat Exams 04/09/24 18:30 Completed XR hip RT 2-3V wo/w pel* [id number] Routine Exams 04/10/24 15:16 Completed XR hip RT 2-3V wo/w pel* [id number] Stat Exams 04/09/24 18:31 Completed CV. echo complete* [id number] Routine Ultrasound 04/09/24 20:41 Completed Radiology Impressions Chest X-Ray 04/09/24 18:30 IMPRESSION: 1. No focal consolidation. 2. Old healed fracture deformity of the right humeral head and neck. 3. Healing/healed fracture deformity of the right mid humerus with prominent bridging osteophyte formations. Hip/Pelvis X-Ray 04/10/24 15:16 IMPRESSION: C-arm films demonstrating appropriate positioning of hardware. Laboratory Results WBC 7.97 10^3/uL (3.29-11.43) 04/13/24 04:01 RBC 3.99 10^6/uL (3.85-5.65) 04/13/24 04:01 Hgb 10.40 g/dL (11.27-16.99) L 04/13/24 04:01 Hct 35.9 % (36-47) L 04/13/24 04:01 MCV 90.0 fl (85-98) 04/13/24 04:01 MCH 26.1 pg (27-33) L 04/13/24 04:01 MCHC 29.0 g/dL (30-55) L 04/13/24 04:01 RDW 15.6 % (12.1-15.1) H 04/13/24 04:01 Plt Count 285 10^3/cmm (157-399) 04/13/24 04:01 MPV 8.9 fL (7.4-10.4) 04/13/24 04:01 Neut % (Auto) 60.6 % 04/13/24 04:01 Lymph % (Auto) 24.5 % 04/13/24 04:01 [place] % (Auto) 7.9 % 04/13/24 04:01 Eos % (Auto) 5.3 % 04/13/24 04:01 Baso % (Auto) 0.6 % 04/13/24 04:01 Neut # (Auto) 4.83 10^3/uL (1.8-7.7) 04/13/24 04:01 Lymph # (Auto) 2.0 10^3/uL (0.8-4.8) 04/13/24 04:01 [place] # (Auto) 0.6 10^3/uL (0.2-0.9) 04/13/24 04:01 Eos # (Auto) 0.4 10^3/uL (0.0-0.8) 04/13/24 04:01 Baso # (Auto) 0.1 10^3/uL (0.0-0.1) 04/13/24 04:01 Nucleated RBC % (auto) 0 % 04/13/24 04:01 Nucleated RBCs # 0.0 /100WBC 04/13/24 04:01 PT 13.60 SECONDS (12.1-14.9) 04/09/24 19:00 INR 0.97 (0.8-1.2) 04/09/24 19:00 APTT 35.4 SECONDS (23.9-36.7) 04/09/24 19:00 Sodium 137 mmol/L (136-145) 04/13/24 04:01 Potassium 4.9 mmol/L (3.5-5.1) 04/13/24 04:01 Chloride 101 mmol/L (98-107) 04/13/24 04:01 Carbon Dioxide 27 mmol/L (22-29) 04/13/24 04:01 Anion Gap 13.9 (5-19) 04/13/24 04:01 BUN 29 mg/dL (8-23) H 04/13/24 04:01 Creatinine 1.2 mg/dL (0.5-0.9) H 04/13/24 04:01 GFR Calculation Not Reportable 04/13/24 04:01 Glucose 151 mg/dL (65-115) H 04/13/24 04:01 POC Glucose 150 mg/dL (70-110) H 04/14/24 06:09 Calculated Osmolality 293 mOsm/kg (285-295) 04/13/24 04:01 Calcium 8.9 mg/dL (8.5-10.5) 04/13/24 04:01 Magnesium 2.0 mg/dL (1.7-2.3) 04/10/24 05:07 Total Bilirubin 0.3 mg/dL (0.15-1.2) 04/09/24 19:00 AST 25 U/L (0-32) 04/09/24 19:00 ALT 27 U/L (0-33) 04/09/24 19:00 Alkaline Phosphatase 252 U/L (35-105) H 04/09/24 19:00 Total Protein 7.7 g/dL (6.6-8.7) 04/09/24 19: Albumin 3.5 g/dL (3.5-5.2) 04/09/24 19:00 Globulin 4.2 g/dL (1.3-4.6) 04/09/24 19:00 Vitamin B12 378 pg/mL (232-1245) 04/09/24 19:00 Urine Color Yellow (Yellow) 04/09/24 20: Urine Appearance Clear (CLEAR) 04/09/24: Urine pH 5.0 (5-7) 04/09/24 20: Ur Specific [place] 1.020 (1.005-1.030) 04/09/24: Urine Protein Trace (Negative) A 04/09/24 20: Urine Glucose (UA) 1+ (Normal) H 04/09/24 20: Urine Ketones Negative (Negative) 04/09/24 20: Urine Blood Negative (Negative) 04/09/24: Urine Nitrate Negative (Negative) 04/09/24: Urine Bilirubin Negative (Negative) 04/09/24 20: Prot Sulfosalicylic Acd Cancelled 04/09/24 19:41 Urine Urobilinogen 0.2 mg/dL (Negative) 04/09/24 20: Ur Leukocyte Esterase Negative (Negative) 04/09/24 20: Urine RBC 0-4 /hpf (0-2) H 04/09/24 20:29 Urine WBC 5-10 /hpf (0-5) H 04/09/24 20:29 Ur Squamous Epith Cells 0-4 /hpf (0-5) H 04/09/24 20:29 Ur Transition Epith Cell Cancelled 04/09/24 19:41 Ur Renal Epithelial Cell Cancelled 04/09/24 19:41 Calcium Oxalate Crystal Cancelled 04/09/24 19:41 Uric Acid Crystals Cancelled 04/09/24 19:41 Triple Phos Crystals Cancelled 04/09/24 19:41 Other Crystals Cancelled 04/09/24 19:41 Amorphous Sediment Not Reportable 04/09/24 20:29 Urine Bacteria 2+ /hpf (NONE) H 04/09/24 20:29 Hyaline Casts Cancelled 04/09/24 19:41 Fine Granular Casts Cancelled 04/09/24 19:41 Coarse Granular Casts Cancelled 04/09/24 19:41 RBC Casts Cancelled 04/09/24 19:41 Other Casts Cancelled 04/09/24 19:41 Urine Mucus Cancelled 04/09/24 19:41 Urine Trichomonas Cancelled 04/09/24 19:41 Urine Yeast Cancelled 04/09/24 19:41 Urine Sperm Cancelled 04/09/24 19:41 Ur Oval Fat Bodies Cancelled 04/09/24 19:41 Vitals Last Vital Signs Temp 97.5 F L 04/14/24 08:00 Pulse 57 L 04/14/24 08:20 Resp 14 04/14/24 08:00 BP 110/58 04/14/24 08:00 Pulse Ox 92 04/14/24 08:00 O2 Del Method Nasal Cannula 04/14/24 08:00 O2 Flow Rate 2 04/14/24 08:00 Discharge Plan Discharge Patient Disposition: Home Condition: Stable Prescriptions: New sennosides-docusate sodium [Stool Softener-Laxative] 8.6-50 mg Tablet 1 tab PO DAILY Qty: 30 0RF aspirin 325 mg Tablet,Delayed Release (Dr/Ec) 325 mg PO DAILY 30 Days Qty: 30 0RF Continued duloxetine 60 mg Capsule, Delayed Rel Sprinkle 60 mg PO DAILY Rx Instructions: Take with 30mg tablet to equal 90mg atorvastatin 20 mg tablet 20 mg PO BEDTIME duloxetine 30 mg capsule,delayed release(DR/EC) 30 mg PO DAILY Rx Instructions: Take with 60mg tablet to equal 90mg furosemide 40 mg tablet 40 mg PO DAILY PRN (Reason: Swelling) Qty: 2 0RF Probiotic 3 billion cell Capsule 3,000 mmu cells PO DAILY PRN (Reason: WHILE ON ANTIBIOTICS) Rx Instructions: administer with a meal hydrocortisone 1 % Cream 1 applic TOPICAL QID PRN (Reason: RASH/ITCH) polyethylene glycol 3350 [Miralax] 17 gram/dose Powder See Rx Instructions .ROUTE .COMPLEX Rx Instructions: TAKE 17 g BY MOUTH MIXED IN 6 TO 8 OUNCES LIQUID DAILY. amino acids-protein hydrolys 15-101 gram-kcal/30 mL Liquid 1 ea PO DAILY pantoprazole 40 mg tablet,delayed release (DR/EC) 40 mg PO BID 30 Days Qty: 60 0RF tramadol 50 mg tablet 50 mg PO Q8H PRN (Reason: pain) Qty: 30 0RF acetaminophen [Tylenol] 325 mg Tablet 650 mg PO Q6H PRN (Reason: pain/fever) magnesium hydroxide [Milk of Magnesia] 400 mg/5 mL Suspension 30 ml PO DAILY PRN (Reason: Constipation) bisacodyl 10 mg Suppository 10 mg TX DAILY PRN (Reason: Constipation) Fleet Enema 19-7 gram/118 mL Enema 118 ml TX DAILY PRN (Reason: Constipation) docusate sodium [Colace] 100 mg Capsule 100 mg PO DAILY ketoconazole 2 % Shampoo 1 applic TOPICAL .2XWEEKLY PRN (Reason: lather) loperamide [Imodium A-D] 2 mg Capsule 2 mg PO DAILY ondansetron HCl 4 mg Tablet 4 mg PO .Q4-6H gabapentin 100 mg capsule 100 mg PO BID fluticasone furoate-vilanterol [Breo Ellipta] 100-25 mcg/dose blister with device 1 inh INHALATION DAILY Spiriva Respimat 1.25 mcg/actuation mist 1 puff INHALATION DAILY insulin lispro [Humalog KwikPen Insulin] 100 unit/mL insulin pen See Rx Instructions .ROUTE .COMPLEX PRN (Reason: blood sugar) Qty: 15 0RF Rx Instructions: Inject, subcut, 3 times daily, after meals, based on sliding scale provided Changed insulin glargine [Lantus Solostar U-100 Insulin] 100 unit/mL (3 mL) insulin pen 45 unit SUBCUT QPM Qty: 15 0RF Discontinued aspirin [Farzana Low Dose Aspirin] 81 mg tablet,delayed release (DR/EC) 81 mg PO DAILY Qty: 30 0RF insulin lispro 100 unit/mL insulin pen 12 unit SUBCUT TID Discharge Orders: Discharge Order (Routine); Ordered 04/14/24 Ordered By: Farshad Chawla Referrals: Alem Auguste PA [Primary Care Provider] - 1 week Discharge Diet: Cardiac Discharge Activity: Resume usual activity Patient Instructions: Acute Wound Care (DC), Opioid Safety, Post Anesthesia Care Activity Restrictions/Additional Instructions: - For your skin lesion under your left breast, please follow-up with primary care provider -Lantus 45 units subcut QPM -Please monitor your blood sugars closely -Monitor your blood sugars 3 times daily as after meals -Please record your blood sugars, and a blood sugar log -For your humalog -Please inject blood sugar after meals based on sliding scale provided -Do not inject insulin if you do not eat as hypoglycemia kills -This is a humalog sliding scale -Insulin sliding ?fingerstick? Insulin ?141-180?0 units/sq 181-220?2 units/sq ?221-260?4 units/sq ?261-300 6 units/sq ?301-350?8 units/sq ?351-400 10 units/sq ?401-450?12 units/sq >450? 14units/sq -If your blood sugar is greater than 500 go to the emergency room -If your blood sugar is less than 60 or at anytime you feel lightheaded or dizzy or diaphoretic or have chest palpitations check your blood sugar, and eat a hard candy or drink orange juice and go immediately to the emergency room -Remember hypoglycemia kills, so if his blood sugar is less than 60 we have to increase it by taking in a sugary meal such as a hard candy or orange juice and go to the emergency room -If you have any questions please call us where here to help -Discharged on aspirin 325 mg daily, after 35 days may decrease to 81 mg daily aspirin Discharge Attestations Time Spent in Discharge Care*: greater than 30 min Status at Discharge: Cognitive status at discharge: mildly impaired cognition, Behavioral status at discharge: cooperative, Quality Metrics Clinical Quality Measures [ No reported AMI, CVA or VTE this stay] Coding Level of Care Code 62632 Total time (in minutes) for Discharge: 45 Diagnoses Hypertension I10 Postural drop in blood pressure I95.1 Diabetes E11.9 Chronic kidney disease (CKD) N18.9 Closed intertrochanteric fracture of right hip S72.141A Encounter type: initial encounter Fracture alignment: displaced COPD (chronic obstructive pulmonary disease) J44.9 Obstructive sleep apnea G47.33
[2024-04-14 13:28] LABS: SARS Covid-2 Antigen Negative (Negative)
== END 2024-04-14 14:50 | disposition skilled nursing facility (03) | DRG 481 ==
LOC: ER 18:58 → MEDSURG 20:04
PROVIDERS: Orthopaedic Surgery; Admitting Provider Internal Medicine; Emergency Provider Emergency Medicine; PCP Physician Assistant; Visit Provider Family Medicine
PROC: 0QS636Z Reposition Right Upper Femur with Intramedullary Internal Fixation Device, Percutaneous Approach (ICD-10-PCS; CPT 27245; principal; 2024-04-10 14:10)
DX: S72.141A Displaced intertrochanteric fracture of right femur, initial encounter for closed fracture (principal); G93.40 Encephalopathy, unspecified; J44.9 Chronic obstructive pulmonary disease, unspecified; G47.33 Obstructive sleep apnea (adult) (pediatric); I25.10 Atherosclerotic heart disease of native coronary artery without angina pectoris; I12.9 Hypertensive chronic kidney disease with stage 1 through stage 4 chronic kidney disease, or unspecified chronic kidney disease; N18.30 Chronic kidney disease, stage 3 unspecified; E11.22 Type 2 diabetes mellitus with diabetic chronic kidney disease; E11.42 Type 2 diabetes mellitus with diabetic polyneuropathy; Z95.1 Presence of aortocoronary bypass graft; W01.0XXA Fall on same level from slipping, tripping and stumbling without subsequent striking against object, initial encounter; R29.6 Repeated falls; I95.1 Orthostatic hypotension; S42.391D Other fracture of shaft of right humerus, subsequent encounter for fracture with routine healing; X58.XXXD Exposure to other specified factors, subsequent encounter; N64.9 Disorder of breast, unspecified; R33.9 Retention of urine, unspecified; Z79.899 Other long term (current) drug therapy; Z79.82 Long term (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; Z79.4 Long term (current) use of insulin; Z88.8 Allergy status to other drugs, medicaments and biological substances; Z99.81 Dependence on supplemental oxygen; Z91.81 History of falling; Z86.14 Personal history of Methicillin resistant Staphylococcus aureus infection; Z88.5 Allergy status to narcotic agent; Z87.891 Personal history of nicotine dependence
CPT/HCPCS: 36415; 36416; 51702; 51798; 71045; 73502; 76000; 80048; 80053; 81001; 82607; 82962; 83735; 85025; 85610; 85730; 87086; 87426; 93005; 93306; 94640; 96372; 96374; 96375; 97161; 97165; 97530; 99285; C1713; J1100; J1650; J1815; J2270; J2405; J2704; J3010; J3490; J7030; J7613; J7626; J7644; J9999

== ENCOUNTER → 2024-04-22 09:15 | Outpatient (BNVA) | payer MEDICARE, MEDICAID, SELFPAY | PROVIDERS: PCP Physician Assistant | DX: S21.109A Unspecified open wound of unspecified front wall of thorax without penetration into thoracic cavity, initial encounter (principal); X58.XXXD Exposure to other specified factors, subsequent encounter | CPT/HCPCS: 87070; 87176; 87205 ==

== ENCOUNTER 2024-04-24 11:41 | Outpatient (CLI) | payer MEDICARE, MEDICAID, SELFPAY ==
--- NOTE | 2024-04-24 12:00 | CT_ITS ---
WS: [id number] CT chest wo con [id number] HISTORY: rule out osteomyelitis of sternum TECHNIQUE: Axial imaging performed through the thorax. Coronal and sagittal reformats are submitted. All CT scans at [facility] use at least one of these dose optimization techniques: automated exposure control; mA and/or kV adjustment per patient size (includes targeted exams where dose is matched to clinical indication); or iterative reconstruction. CONTRAST: None DLP: 372.14 mGy.cm COMPARISON: 05/26/2021, 08/16/2020, 12/30/2021 Lungs and central airway: Mild pulmonary hyperexpansion. New noncalcified pulmonary nodule RIGHT upper lobe abutting the fissure measures 6 mm. Pleura: Normal. No pleural effusion. Heart and pericardium: Prior CABG. Normal size heart. Coronary artery calcifications. Mediastinum and sylvia: Small mediastinal and hilar lymph nodes. Vessels: Mild atherosclerosis aorta. Mildly dilated pulmonary artery. Chest wall and lower neck: Poststernotomy changes are noted which are similar to prior exams. Reidentified is the soft tissue tract along the inferior and slightly to the LEFT of the xiphoid. There is a soft tissue nodule measuring 10 x 10 mm which extends close to an associated wire from the CABG. This tract has been present since 05/26/2021. May be an area of scar formation. There is no obvious lucency. As there is a closely associated wire of this may've developed fistulous tract. There is not a lot of inflammation to suggest infection. Upper abdomen: Cholelithiasis. Chronic atrophy LEFT kidney. Only the upper pole is imaged and included. Renal atrophy was also described on a prior ultrasound from 07/17/2023. Liver cirrhosis. Osseous structures: Median sternotomy. No definite osseous destruction. There is lucency within the sternum associated with the wires. There is no evidence for mediastinitis. CT/CT chest wo con [id number] IMPRESSION: 1. Soft tissue nodule adjacent to the inferior xiphoid and a post CABG sternot madiha wire. This nodule measures 10 x 10 mm and has been present since 05/26/2021. This may be a small persistent track associated with a postoperative wire. The re is no well-formed fluid collection or adjacent inflammation. Tract is not in creasing in size. 2. Post CABG. No obvious osteomyelitis or bone destruction. No mediastinitis. 3. Atherosclerosis aorta. 4. New 6 mm noncalcified nodule RIGHT upper lobe. Recommend follow-up chest CT in 3 months.
== END 2024-04-24 11:42 | disposition home or self-care (01) ==
LOC: RAD 11:42
PROVIDERS: PCP Physician Assistant
DX: Z98.890 Other specified postprocedural states (principal); Z87.81 Personal history of (healed) traumatic fracture
CPT/HCPCS: 71250; 73502; 99024

== ENCOUNTER → 2024-05-29 08:05 | Outpatient (BNVA) | payer MEDICARE, MEDICAID, SELFPAY | PROVIDERS: PCP Physician Assistant; Visit Provider Orthopaedic Surgery | DX: S72.141D Displaced intertrochanteric fracture of right femur, subsequent encounter for closed fracture with routine healing (principal); X58.XXXD Exposure to other specified factors, subsequent encounter | CPT/HCPCS: 73502; 99024 ==

== ENCOUNTER 2024-07-23 10:48 | Outpatient (CLI) | payer MEDICARE, MEDICAID, SELFPAY ==
--- NOTE | 2024-07-23 10:57 | CTR_ITS ---
PROCEDURE INFORMATION: Exam: CT Chest With Contrast; Diagnostic Exam date and time: 07/23/2024 11:54 AM Age: 78 years old Clinical indication: Condition or disease; Lung condition and disease; Pulmonary nodule, solitary; Prior surgery; Surgery date: 6+ months; Surgery type: Heart; Additional info: Follow up pulmonary nodule TECHNIQUE: Imaging protocol: Diagnostic computed tomography of the chest with contrast. Radiation optimization: All CT scans at this facility use at least one of these dose optimization techniques: automated exposure control; mA and/or kV adjustment per patient size (includes targeted exams where dose is matched to clinical indication); or iterative reconstruction. Contrast material: OMNI 350; Contrast volume: 100 ml; Contrast route: INTRAVENOUS (IV); COMPARISON: CT chest wo con [id number] 04/24/2024 12:04 PM RADIATION DOSE METRICS: Total DLP (mGy-cm): 365.23 FINDINGS: Trachea: Trachea is patent. Lungs: There is a stable left lower lobe perifissural 3 mm nodule. There is a stable left lower lobe pleural-based 5 mm nodule. Stable right upper lobe 4 mm nodule. Stable right lower lobe pleural-based 7 mm nodule. Mild bibasilar linear scarring. Pleural spaces: Unremarkable. No pneumothorax. No pleural effusion. Heart: Unremarkable. No cardiomegaly. No pericardial effusion. Coronary arteries: Coronary calcifications are seen. Lymph nodes: No enlarged mediastinal lymph nodes. Vasculature: Mild calcified atherosclerotic changes are seen in the thoracic aorta. Liver: Liver has irregular border. Gallbladder and biliary ducts: Gallstones are seen. Bones/joints: Post sternotomy changes are seen. Chronic compression deformity changes are seen involving the T3, T11 and L1 vertebral bodies. At the previously mentioned nodular lesion inferior and to the left of the inferior xiphoid, nonspecific subcutaneous stranding changes are seen on today's study. No fluid collection is seen. Soft tissues: See Bones/joints finding. CT/CT chest w con* [id number] IMPRESSION: 1. At the previously mentioned nodular lesion inferior and to the left of the inferior xiphoid, nonspecific subcutaneous stranding changes are seen on today's study. No fluid collection is seen. ? Resolving previous cellulitis? Clinical correlation is advised. 2. Liver has irregular border. Findings suggest cirrhosis. Clinical correlation is advised. 3. There is a stable left lower lobe perifissural 3 mm nodule. There is a stable left lower lobe pleural-based 5 mm nodule. Stable right upper lobe 4 mm nodule. Stable right lower lobe pleural-based 7 mm nodule. Stable bilateral pulmonary nodules as described. For patients at low risk (minimal or absent history of smoking and of other known risk factors), recommend CT Chest at 3-6 months, then consider CT Chest at 18-24 months. For patients at high risk (history of smoking or of other known risk factors), recommend CT Chest at 3-6 months, then CT Chest at 18-24 months. (Reference: Joshua) 4. Mild calcified atherosclerotic changes are seen in the thoracic aorta. 5. Coronary calcifications. REFERENCES: Joshua H, et al. Guidelines for Management of Incidental Pulmonary Nodules Detected on CT Images: From the Fleischner Society 2017. Radiology. 2017;284(1):228-243.
[2024-07-23 12:11] LABS: Blood Urea Nitrogen 31 mg/dL (8-23)
== END 2024-07-23 10:49 | disposition home or self-care (01) ==
LOC: RAD 10:53
PROVIDERS: Radiology Diagnostic Radiology; PCP Physician Assistant; Visit Provider Physician Assistant
DX: R91.1 Solitary pulmonary nodule (principal); R93.2 Abnormal findings on diagnostic imaging of liver and biliary tract; R93.1 Abnormal findings on diagnostic imaging of heart and coronary circulation; J98.4 Other disorders of lung; R91.8 Other nonspecific abnormal finding of lung field; I70.0 Atherosclerosis of aorta
CPT/HCPCS: 71260; 82565; 84520

== ENCOUNTER → 2024-08-04 14:39 | Outpatient (BNVA) | payer MEDICARE, MEDICAID, SELFPAY | PROVIDERS: PCP Physician Assistant; Visit Provider Orthopaedic Surgery | DX: S72.141D Displaced intertrochanteric fracture of right femur, subsequent encounter for closed fracture with routine healing (principal); X58.XXXD Exposure to other specified factors, subsequent encounter | CPT/HCPCS: 73502; 99213 ==

== ENCOUNTER 2024-11-01 17:43 | Inpatient (IN) | payer OTHER, MEDICAID, SELFPAY ==
--- OUTSIDE RECORDS SUMMARY | 2024-06-11 05:30 | XMS_ITS ---
Author Organization [facility] Address [address] [place] [address] Care Team Providers Care Branch Lending Manager Name Role Phone Reid Black Primary Care Provider Diane Rodriguez Unavailable [phone] Jerson Cardenas Unavailable [phone] REASON FOR VISIT CTS consult for removal of sternal wire possibly causing an open wound in the left inframammary crease- referred by LISANDRO Castelan. History of CABG in 2004. Soft Tissue Ultrasound of left breaston 04/17/2024 by [facility]- Per LISANDRO Castelan, CT Chest w/o Contrast on 04/24/2024 at [facility]- [facility] En[facility] Encounter Location Date Provider Diagnosis Replaced By [facility] [address] [place] [address] 06/11/2024 Jerson Cardenas Plan Of Treatment No Information Progress Notes * Deyanira SHELTON CDOB:1945 (79 yo F)Acc No.[id number]:06/11/2024 Progress Notes Patient: Deyanira Quevedo Provider: Jamaal Cardenas MD :1945 A ge:78 Y S ex:Female Date:06/11/2024 Address:[address], [id number] Pcp:Reid Black Subjective: * Chief Complaints: * C TS consult for removal of sternal wire possibly causing an open wound in the left inframammary crease- referred by LISANDRO Castelan. History of CABG in 2004. Soft Tissue Ultrasound of left breast on 04/17/2024 by [facility]- Per LISANDRO Castelan, CT Chest w/o Contrast on 04/24/2024 at [facility]- Images in Health system * Electronic signature of Zack Cardenas MD on 11/01/2024 at 05:53 PM CDT Sign off status: Pending * Provider: Jamaal Cardenas MD Date: 0 06/11/2024 Generated for Jorge smalls/Brenda/Nasrin on: 0 11/01/2024 05:53 PM CDT
--- OUTSIDE RECORDS SUMMARY | 2024-06-24 03:00 | XMS_ITS ---
Author Organization [facility] Address [address] [place] [address] Care Team Providers Care Wrist Closer Name Role Phone Reid Black Primary Care Provider Diane Rdoriguez Unavailable [phone] Jerson Cardenas Unavailable [phone] REASON FOR VISIT 0800- Removal of pacerwire under local anesthesia with IV sedation by anesthesia and any other indicated procedures Encounters Encounter Location Date Provider Diagnosis [facility] [address] [place] [address] 06/24/2024 Jerson Cardenas Plan Of Treatment No Information Progress Notes * Deyanira SHELTON CDOB:1945 (79 yo F)Acc No.[id number]:06/24/2024 Patient: Deyanira Quevedo Provider: Jamaal Cardenas MD :1945 A ge:78 Y S ex:Female Date:06/24/2024 Address:[address], [id number] Pcp:Reid Black Billing Information: * Procedure Codes: * Electronic signature of Zack Cardenas MD on 11/01/2024 at 05:53 PM CDT Sign off status: Pending * Provider: Jamaal Cardenas MD Date: 06/24/2024 Generated for Printi ng/Faxing/eTransmitting on: 0 11/01/2024 05:53 PM CDT
[2024-11-01 17:51] VITALS: BP 88/67; PULSE 112; RESP 19; TEMP 38.6; O2SAT 95
--- OUTSIDE RECORDS SUMMARY | 2024-11-01 17:53 | XMS_ITS | Encounter Summary ---
Author Organization [facility] Address [address] [place] [address] Care Team Providers Care Legal Writing Professor Name Role Phone Guy Salazar DO Primary Care Provide r Encounter Details Date Type Department Care Team (Late st Contact Info) Description 03/15/2010 Ancillary Orders [facility] Orthopedics- [address] [place] [address] Bairon Gorman MD NO ADDRESS ON FILE Pain Social History Tobacco Use Types Packs/Day Years Used Date Smoking Tobacco: Every Day Cigarettes 1 45 Alcohol Use Standard Drinks/Week Comments No 0 (1 standard drink = 0.6 oz pur e alcohol) Comments Unknown Sex and Gender Information Value Date Recorded Sex Assigned at Not on file Legal Sex Female 4:26 AM PSYCHOLOGIST ENGINEERING Gender Identity Not on file Sexual Orientation Not on file documented as of this encounter Plan of Treatment Not on file documented as of this encounter Results * XR ELBOW 2 VW LEFT (03/15/2010 11:37 AM PSYCHOLOGIST ENGINEERING) Anatomical Region Laterality Modality Upper Extremity Computed Radiogr aphy Narrative 03/17/2010 3:03 PM PSYCHOLOGIST ENGINEERING Left elbow reveals olecranon screw present, intramedullary with some callus formation noted about the fractures. Deformity of the radial head is noted, some remodeling suggested. Procedure Note Bairon Gorman MD - 03/17/2010 Left elbow reveals olecranon screw present, intramedullary with somecallus formation noted about the fractures. Deformity of the radial headis noted, some remodeling suggested. us Bairon Gorman MD DIAGNOSTIC IMAGING ORDERABLE S Final Result documented in this encounter Visit Diagnoses Diagnosis Pain Generalized pain documented in this encounter Care Teams Legal Writing Professor Relationship Specialty Start Date End Date Guy Salazar DO [address] [id number] PCP - General Internal Medicine 10/23/16 documented as of this encounter
--- OUTSIDE RECORDS SUMMARY | 2024-11-01 17:53 | XMS_ITS | Encounter Summary ---
Author Organization [facility] Address [address] [place] [address] Care Team Providers Care Director Digital Sales Name Role Phone Guy Salazar DO Primary Care Provide r Encounter Details Date Type Department Care Team (Late st Contact Info) Description 01/25/2010 Ancillary Orders [facility] Orthopedics- 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 There is pin remaining in place within the scaphoid, traversing distal to proximal pole. Procedure Note Bairon Gorman MD - 02/02/2010 Plain film x-rays today of the left wrist reveal overlying fiberglassimmobilization present/thumb spica casting noted. There is pin remainingin place within the scaphoid, traversing distal to proximal pole. us Bairon Gorman MD DIAGNOSTIC IMAGING ORDERABLE S Final Result documented in this encounter Visit Diagnoses Diagnosis Pain Generalized pain documented in this encounter Care Teams Director Digital Sales Relationship Specialty Start Date End Date Guy Salazar DO [address] [phone] PCP - General Internal Medicine 10/23/16 documented as of this encounter
--- OUTSIDE RECORDS SUMMARY | 2024-11-01 17:53 | XMS_ITS | Encounter Summary ---
Author Organization [facility] Address [address] [place] [address] Care Team Providers Care Emissions Testing Technician Name Role Phone Guy Salazar DO Primary Care Provide r Encounter Details Date Type Department Care Team (Late st Contact Info) Description 03/15/2010 Ancillary Orders [facility] Orthopedics- [address] [place] [address] Bairon Gorman MD NO ADDRESS ON FILE Pain Social History Tobacco Use Types Packs/Day Years Used Date Smoking Tobacco: Every Day Cigarettes 1 45 Alcohol Use Standard Drinks/Week Comments No 0 (1 standard drink = 0.6 oz pur e alcohol) Comments Unknown Sex and Gender Information Value Date Recorded Sex Assigned at Not on file Legal Sex Female 4:26 AM SMALL ENGINE TECHNICIAN Gender Identity Not on file Sexual Orientation Not on file documented as of this encounter Plan of Treatment Not on file documented as of this encounter Results * XR WRIST 2 VW LEFT (03/15/2010 11:51 AM SMALL ENGINE TECHNICIAN) Anatomical Region Laterality Modality Wrist / Hand Computed Radiogr aphy Narrative 03/17/2010 3:03 PM SMALL ENGINE TECHNICIAN I note the patient does have x-rays obtained today which reveal pin in place left wrist traversing the scaphoid. There is some mild radiolucency consistent with possible remodeling versus early nonunion. Procedure Note Bairon Gorman MD - 03/17/2010 I note the patient does have x-rays obtained today which reveal pin inplace left wrist traversing the scaphoid. There is some mild radiolucencyconsistent with possible remodeling versus early nonunion. us Bairon Gorman MD DIAGNOSTIC IMAGING ORDERABLE S Final Result documented in this encounter Visit Diagnoses Diagnosis Pain Generalized pain documented in this encounter Care Teams Emissions Testing Technician Relationship Specialty Start Date End Date Guy Salazar DO [address] [phone] PCP - General Internal Medicine 10/23/16 documented as of this encounter
--- OUTSIDE RECORDS SUMMARY | 2024-11-01 17:53 | XMS_ITS | Encounter Summary ---
Author Organization [facility] Address [address] [place] [address] Care Team Providers Care Environmental Associate Name Role Phone Guy Salazar Primary Care Provide r Reason for Referral * CT Scan (Routine) - Closed Specialty Diagnoses / Procedures Referred By Bry pizano Referred To Contact Radiology Diagnoses Renal mass, left Procedures CT RENAL CRYO ABLATION PERCUTANEOUS CHG CT GUIDANCE TISSUE ABLATION MI ABLATION RENAL TUMOR UNILATERAL PERQ CRYOTHERAPY Rosendo Zacarias MD [address] [place] [address] Phone: tel: [facility] [address] [address] Phone: tel: fax: Referral ID Status Reason Start Date Expiration Date Visits Re quested Visits Authorized [id number] Closed 03/29/2020 04/28/2020 1 1 TING INS[address] * CT Scan (Routine) - Closed Specialty Diagnoses / Procedures Referred By Bry pizano Referred To Contact Radiology Diagnoses Renal mass, left Procedures CT BIOPSY RENAL LEFT Rosendo Zacarais MD [address] [place] [address] Phone: tel: fax: [facility] [address] [place] [address] [place] [address] Phone: tel: fax: Referral ID Status Reason Start Date Expiration Date Visits Re quested Visits Authorized [id number] Closed 03/17/2020 04/17/2021 1 1 TING INSPECTOR Encounter Details Date Type Department Care Team (Late st Contact Info) Description 03/17/2020 Ancillary Orders [facility] CT [address] [place] [id number] Rosendo Zacarias MD [address] [place] [address] Renal mass, left Social History Tobacco Use Types Packs/Day Years Used Date Smoking Tobacco: Every Day Cigarettes 1 45 Smokeless Tobacco: Never Alcohol Use Standard Drinks/Week Comments No 0 (1 standard drink = 0.6 oz pur e alcohol) Comments No Sex and Gender Information Value Date Recorded Sex Assigned at Not on file Legal Sex Female 4:26 AM TREATING INSPECTOR Gender Identity Not on file Sexual Orientation Not on file Occupation Industry Job Start Date Job End Date Not on file Not on file Not on file Not on file Not on file Not on file Not on file Not on file documented as of this encounter Plan of Treatment Not on file documented as of this encounter Results * CT RENAL CRYO ABLATION PERCUTANEOUS (04/20/2020 12:41 PM CDT) Anatomical Region Laterality Modality Computed Tomogra phy 04/20/2020 12:4 2 PM CDT Impressions 04/20/2020 3:44 PM CDT IMPRESSION: Please see below. Date: 04/20/2020 12:41 PM Reason For Exam: See Diagnosis. Diagnosis: Renal mass, left. Validation Scientist: Dr. Zacarias Moderate (conscious) sedation for this procedure was performed with continuous physician supervision. Medical history, physical exam, drug dosages, routes of drug administration, monitoring data, and precise times of service are documented in the medical record on the [facility]-approved form, 'Sedative/Analgesic Administration for Diagnostic and Therapeutic Procedures'. Please see separate nursing documentation for duration and drug dosages. PROCEDURE AND FINDINGS: 1. Preoperative localization CT was performed, which demonstrated 2.7 cm posterior left renal mass. 2. CT guided biopsy was performed and core biopsy specimens were submitted to pathology for analysis. Preliminary findings suggest malignancy. 3. Cryoablation of the left renal mass with 2 ice force cryoablation probes. A 10 minute freeze, 5 minute thaw, and 10 minute freeze cycle were performed. The ice ball was seen to completely encase the mass. No significant hemorrhage or pneumothorax seen on post ablation imaging. Access site: Left flank. Contrast: None. Complication/s: None. Estimated Blood Loss: Minimal. Technique: Prior to the procedure, the risks of bleeding, infection, and damage to adjacent structures were explained to the patient. The patient stated an understanding of these risks and signed the consent form. The patient was placed prone on the CT table and 2.7 cm posterior mass in the left kidney was localized under CT guidance. A marker was placed on the skin overlying the mass. Thereafter, the patient was prepped and draped in the usual sterile fashion. 10 cc of 1% lidocaine were utilized to anesthetize a tract from the skin to the left renal mass. Intravenous sedation was administered in divided doses over the course of the procedure. Thereafter, a 17-gauge introducer needle was advanced through the skin and soft tissues to the renal mass. 3 18-gauge core biopsies were obtained and preliminary path was consistent with malignancy. 3 additional cores were then obtained for permanent section. The introducer needle was removed. 2 ice force cryoablation probes were positioned within the superior and inferior portion of the mass utilizing intermittent CT guidance. Once position was confirmed, a 10 minute freeze, 5 minute thaw, and 10 minute freeze cycle was performed. The ice ball was seen to completely encase the mass on CT imaging. The needles were then thawed and the cautery function was utilized. The needles were removed and a sterile dressing was placed. The patient tolerated the procedure well without complication. ++++++++++++++++++++ IMPRESSION: Successful CT-guided biopsy and cryoablation of the left renal cell carcinoma. Narrative Procedure Note Rosendo Zacarias MD - 04/20/2020 IMPRESSION: Please see below. Date: 04/20/2020 12:41 PM Reason For Exam: See Diagnosis. Diagnosis: Renal mass, left. Validation Scientist: Dr. Zacarias Moderate (conscious) sedation for this procedure was performed with continuous physician supervision. Medical history, physical exam, drug dosages, routes of drug administration, monitoring data, and precise times of service are documented in the medical record on the [facility]-approved form, 'Sedative/Analgesic Administration for Diagnostic and Therapeutic Procedures'. Please see separate nursing documentation for duration and drug dosages. PROCEDURE AND FINDINGS: 1. Preoperative localization CT was performed, which demonstrated 2.7 cm posterior left renal mass. 2. CT guided biopsy was performed and core biopsy specimens were submitted to pathology for analysis. Preliminary findings suggest malignancy. 3. Cryoablation of the left renal mass with 2 ice force cryoablation probes. A 10 minute freeze, 5 minute thaw, and 10 minute freeze cycle were performed. The ice ball was seen to completely encase the mass. No significant hemorrhage or pneumothorax seen on post ablation imaging. Access site: Left flank. Contrast: None. Complication/s: None. Estimated Blood Loss: Minimal. Technique: Prior to the procedure, the risks of bleeding, infection, and damage to adjacent structures were explained to the patient. The patient stated an understanding of these risks and signed the consent form. The patient was placed prone on the CT table and 2.7 cm posterior mass in the left kidney was localized under CT guidance. A marker was placed on the skin overlying the mass. Thereafter, the patient was prepped and draped in the usual sterile fashion. 10 cc of 1% lidocaine were utilized to anesthetize a tract from the skin to the left renal mass. Intravenous sedation was administered in divided doses over the course of the procedure. Thereafter, a 17-gauge introducer needle was advanced through the skin and soft tissues to the renal mass. 3 18-gauge core biopsies were obtained and preliminary path was consistent with malignancy. 3 additional cores were then obtained for permanent section. The introducer needle was removed. 2 ice force cryoablation probes were positioned within the superior and inferior portion of the mass utilizing intermittent CT guidance. Once position was confirmed, a 10 minute freeze, 5 minute thaw, and 10 minute freeze cycle was performed. The ice ball was seen to completely encase the mass on CT imaging. The needles were then thawed and the cautery function was utilized. The needles were removed and a sterile dressing was placed. The patient tolerated the procedure well without complication. ++++++++++++++++++++ IMPRESSION: Successful CT-guided biopsy and cryoablation of the left renal cell carcinoma. Rosendo Zacarias MD CT ORDERABLES Final Result * CT BIOPSY RENAL LEFT (04/20/2020 12:40 PM CDT) Anatomical Region Laterality Modality Abdomen Computed Tomogra phy 04/20/2020 12:4 1 PM CDT Impressions 04/20/2020 3:44 PM CDT IMPRESSION: Please see below. Date: 04/20/2020 12:41 PM Reason For Exam: See Diagnosis. Diagnosis: Renal mass, left. Validation Scientist: Dr. Zacarias Moderate (conscious) sedation for this procedure was performed with continuous physician supervision. Medical history, physical exam, drug dosages, routes of drug administration, monitoring data, and precise times of service are documented in the medical record on the [facility]-approved form, 'Sedative/Analgesic Administration for Diagnostic and Therapeutic Procedures'. Please see separate nursing documentation for duration and drug dosages. PROCEDURE AND FINDINGS: 1. Preoperative localization CT was performed, which demonstrated 2.7 cm posterior left renal mass. 2. CT guided biopsy was performed and core biopsy specimens were submitted to pathology for analysis. Preliminary findings suggest malignancy. 3. Cryoablation of the left renal mass with 2 ice force cryoablation probes. A 10 minute freeze, 5 minute thaw, and 10 minute freeze cycle were performed. The ice ball was seen to completely encase the mass. No significant hemorrhage or pneumothorax seen on post ablation imaging. Access site: Left flank. Contrast: None. Complication/s: None. Estimated Blood Loss: Minimal. Technique: Prior to the procedure, the risks of bleeding, infection, and damage to adjacent structures were explained to the patient. The patient stated an understanding of these risks and signed the consent form. The patient was placed prone on the CT table and 2.7 cm posterior mass in the left kidney was localized under CT guidance. A marker was placed on the skin overlying the mass. Thereafter, the patient was prepped and draped in the usual sterile fashion. 10 cc of 1% lidocaine were utilized to anesthetize a tract from the skin to the left renal mass. Intravenous sedation was administered in divided doses over the course of the procedure. Thereafter, a 17-gauge introducer needle was advanced through the skin and soft tissues to the renal mass. 3 18-gauge core biopsies were obtained and preliminary path was consistent with malignancy. 3 additional cores were then obtained for permanent section. The introducer needle was removed. 2 ice force cryoablation probes were positioned within the superior and inferior portion of the mass utilizing intermittent CT guidance. Once position was confirmed, a 10 minute freeze, 5 minute thaw, and 10 minute freeze cycle was performed. The ice ball was seen to completely encase the mass on CT imaging. The needles were then thawed and the cautery function was utilized. The needles were removed and a sterile dressing was placed. The patient tolerated the procedure well without complication. ++++++++++++++++++++ IMPRESSION: Successful CT-guided biopsy and cryoablation of the left renal cell carcinoma. Narrative Procedure Note Rosendo Zacarias MD - 04/20/2020 IMPRESSION: Please see below. Date: 04/20/2020 12:41 PM Reason For Exam: See Diagnosis. Diagnosis: Renal mass, left. Validation Scientist: Dr. Zacarias Moderate (conscious) sedation for this procedure was performed with continuous physician supervision. Medical history, physical exam, drug dosages, routes of drug administration, monitoring data, and precise times of service are documented in the medical record on the [facility]-approved form, 'Sedative/Analgesic Administration for Diagnostic and Therapeutic Procedures'. Please see separate nursing documentation for duration and drug dosages. PROCEDURE AND FINDINGS: 1. Preoperative localization CT was performed, which demonstrated 2.7 cm posterior left renal mass. 2. CT guided biopsy was performed and core biopsy specimens were submitted to pathology for analysis. Preliminary findings suggest malignancy. 3. Cryoablation of the left renal mass with 2 ice force cryoablation probes. A 10 minute freeze, 5 minute thaw, and 10 minute freeze cycle were performed. The ice ball was seen to completely encase the mass. No significant hemorrhage or pneumothorax seen on post ablation imaging. Access site: Left flank. Contrast: None. Complication/s: None. Estimated Blood Loss: Minimal. Technique: Prior to the procedure, the risks of bleeding, infection, and damage to adjacent structures were explained to the patient. The patient stated an understanding of these risks and signed the consent form. The patient was placed prone on the CT table and 2.7 cm posterior mass in the left kidney was localized under CT guidance. A marker was placed on the skin overlying the mass. Thereafter, the patient was prepped and draped in the usual sterile fashion. 10 cc of 1% lidocaine were utilized to anesthetize a tract from the skin to the left renal mass. Intravenous sedation was administered in divided doses over the course of the procedure. Thereafter, a 17-gauge introducer needle was advanced through the skin and soft tissues to the renal mass. 3 18-gauge core biopsies were obtained and preliminary path was consistent with malignancy. 3 additional cores were then obtained for permanent section. The introducer needle was removed. 2 ice force cryoablation probes were positioned within the superior and inferior portion of the mass utilizing intermittent CT guidance. Once position was confirmed, a 10 minute freeze, 5 minute thaw, and 10 minute freeze cycle was performed. The ice ball was seen to completely encase the mass on CT imaging. The needles were then thawed and the cautery function was utilized. The needles were removed and a sterile dressing was placed. The patient tolerated the procedure well without complication. ++++++++++++++++++++ IMPRESSION: Successful CT-guided biopsy and cryoablation of the left renal cell carcinoma. Rosendo Zacarias MD CT ORDERABLES Final Result documented in this encounter Visit Diagnoses Diagnosis Renal mass, left Unspecified disorder of kidney and ureter Renal mass, left Unspecified disorder of kidney and ureter Renal mass, left Unspecified disorder of kidney and ureter documented in this encounter Care Teams Environmental Associate Relationship Specialty Start Date End Date Guy Salazar DO [address] [address] PCP - General Internal Medicine 10/23/16 documented as of this encounter
--- OUTSIDE RECORDS SUMMARY | 2024-11-01 17:53 | XMS_ITS | Encounter Summary ---
Author Organization [facility] Address [address] [place] [address] Care Team Providers Care All Round Logger Name Role Phone Guy Salazar DO Primary Care Provide r Reason for Referral * Outpatient Services (Routine) - Closed Specialty Diagnoses / Procedures Referred By Bry t Referred To Contact Diagnoses Pain Procedures XR FLUORO LESS THAN 1 HOUR Papa Anderson MD [address] [place] [phone] Phone: tel: fax: [facility] Pre-Registration [place] CALL TO MAKE APPOINTMENT ONLY [address] [place] [address] Phone: tel: fax: Referral ID Status Reason Start Date Expiration Date Visits Re quested Visits Authorized [id number] Closed 09/24/2016 10/25/2017 1 1 Encounter Details Date Type Department Care Team (Late st Contact Info) Description 09/24/2016 Ancillary Orders [facility] Radiology OR [address] [place] [address] Papa Anderson MD [address] [place] [phone] Pain Social History Tobacco Use Types Packs/Day Years Used Date Smoking Tobacco: Every Day Cigarettes 1 45 Smokeless Tobacco: Never Alcohol Use Standard Drinks/Week Comments No 0 (1 standard drink = 0.6 oz pur e alcohol) Comments No Sex and Gender Information Value Date Recorded Sex Assigned at Not on file 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 Exam was auto-finalized. us Papa Anderson MD DIAGNOSTIC IMAGING ORDERABLE S Final Result documented in this encounter Visit Diagnoses Diagnosis Pain Generalized pain Pain Generalized pain documented in this encounter Care Teams All Round Logger Relationship Specialty Start Date End Date Guy Salazar DO [address] [address] PCP - General Internal Medicine 10/23/16 documented as of this encounter
--- OUTSIDE RECORDS SUMMARY | 2024-11-01 17:54 | XMS_ITS | Encounter Summary ---
Author Organization [facility] Address [address] [place] [address] Care Team Providers Care Architectural Design Lecturer Name Role Phone Guy Salazar DO Primary Care Provide r Encounter Details Date Type Department Care Team (Late st Contact Info) Description 01/03/2001 Outpatient [facility] [address] [place] [address] Dewey Acosta MD NO ADDRESS ON FILE REFLEX SYMPATH DYSTRPHY LOWER LIMB (Primary Dx) Social History Tobacco Use Types Packs/Day Years Used Date Smoking Tobacco: Never Assessed Comments Unknown Sex and Gender Information Value Date Recorded Sex Assigned at Not on file 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
--- OUTSIDE RECORDS SUMMARY | 2024-11-01 17:54 | XMS_ITS | Encounter Summary ---
Author Organization 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
--- OUTSIDE RECORDS SUMMARY | 2024-11-01 17:54 | XMS_ITS | Encounter Summary ---
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
--- OUTSIDE RECORDS SUMMARY | 2024-11-01 17:54 | XMS_ITS | Patient Health Record ---
Author Organization [facility] Address [address] [place] [address] Care Team Providers Care Assessment Analyst Name Role Phone Reid Black Primary Care Provider UnavailDiane España Unavailable [phone] Jerson Cardenas Unavailable [phone] Allergies Allergen (clinical drug ingredient) Drug/Non Drug Allergy documented on EMR Reaction Allergy Type Onset Date Status cephalexin Cephalexin itching Drug Allergy Activ e nitrofurantoin, macrocrystals / nitrofurantoin, monohydrate Macrobid itching Drug Allergy Active fluticasone Fluticasone difficulty breathing Drug Allergy Active prednisone Prednisone act goofy Drug Allergy Activ e salmeterol Salmeterol Hives Drug Allergy Activ e Results Component Value Reference Range Flag Notes Glucometer WBG--57001 (Not y et reviewed by provider) Interpretation: Performing Lab: Notes/Report: Glucometer WBG 189 65-110 MG/DL HI Notify D r~Meter: [id number]~Clay Plant Treater: [id number] HOSSEIN MARIANO zzzFluoroscopy (Not yet revi ewed by provider) Interpretation: Performing Lab: Notes/Report: See Below For Report Fluoroscopy Read See Below For Report zzzFluoroscopy (Not yet revi ewed by provider) Interpretation: Performing Lab: Notes/Report: [id number]=iSite Crossmatch--[id number] (Not yet r eviewed by provider) Interpretation: Performing Lab: Notes/Report: Blood Bank ID [id number] Unknown Blood Product Notification hold Unknown IS 0+ XM Interp Compatible IS 0+ XM Interp Compatible COVID 19 PCR--97236 (Not yet reviewed by provider) Interpretation: Performing Lab: Notes/Report: Diagnosis Description: Encounter for screening for other viral diseases COVID 19 PCR Negative All test results must be correlated with the patient's clinical presentation, history, and other diagnostic information for treatment or other patient management decisions. Reference Range: Negative INVALID RESULT does not indicate the presence or absence of SARS-CoV-2 infection. The test must be repeated. If a second invalid result is obtained, consider confirmation by a different method if indicated by the patient's condition. NEGATIVE RESULT does not preclude SARS-CoV-2 infection and should not be used as the sole basis for treatment or other patient managment decisions. POSITIVE RESULT indicates active infection with SARS-CoV-2. Positive results do not rule out bacterial infection or co-infection with other viruses. Performed using [employer]. PRBC-LR--P9016 (Not yet revi ewed by provider) Interpretation: Performing Lab: Notes/Report: 2 units on hold Diagnosis Description: Other specified complication of cardiac prosthetic devices, implants and grafts, initial encounter Diagnosis Description: Presence of aortocoronary bypass graft Diagnosis Description: Essential (primary) hypertension Diagnosis Description: Hyperlipidemia, unspecified Diagnosis Description: Type 2 diabetes mellitus without complications Diagnosis Description: Chronic obstructive pulmonary disease, unspecified Diagnosis Description: Obstructive sleep apnea hypopnea Diagnosis Description: Alternating esotropia Diagnosis Description: retirement (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 Diagnosis Description: Other personal risk factors Diagnosis Description: Other fatigue Diagnosis Description: Other jail (current) drug therapy Diagnosis Description: Other specified symptoms and signs involving the circulatory and respiratory systems Diagnosis Description: Personal history of other diseases of the circulatory system Diagnosis Description: Encounter for other preprocedural examination Diagnosis Description: Encounter for preprocedural cardiovascular examination Diagnosis Description: Shortness of breath Number of Units 2 NA Product Type Blood Product NA CBC Reflex Man Diff 81733, 8 5007 (Not yet reviewed by provider) Interpretation: Performing Lab: Notes/Report: Diagnosis Description: Other specified complication of cardiac prosthetic devices, implants and grafts, initial encounter Diagnosis Description: Presence of aortocoronary bypass graft Diagnosis Description: Essential (primary) hypertension Diagnosis Description: Hyperlipidemia, unspecified Diagnosis Description: Type 2 diabetes mellitus without complications Diagnosis Description: Chronic obstructive pulmonary disease, unspecified Diagnosis Description: Obstructive sleep apnea hypopnea Diagnosis Description: Alternating esotropia Diagnosis Description: retirement (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 Diagnosis Description: Other personal risk factors Diagnosis Description: Other fatigue Diagnosis 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 Diagnosis Description: Other specified symptoms and signs involving the circulatory and respiratory systems Diagnosis Description: Personal history of other diseases of the circulatory system Diagnosis Description: Encounter for other preprocedural examination Diagnosis Description: Encounter for preprocedural cardiovascular examination Diagnosis Description: Shortness of breath WBC 7.7 4.5-11.0 X10'3 RBC 4.96 4.00-5.20 X10'6 Hgb 12.9 12.0-16.0 G/DL Hct 42.1 36.0-46.0 % MCV 84.9 80.0-100.0 FL MCH 26.0 27.0-31.0 PG LOW MCHC 30.6 31.0-37.0 G/DL LOW Platelet 355 150-400 X10'3 RDW-SD 48.8 35.0-49.0 FL RDW-CV 15.9 12.2-15.6 % HI MPV 8.7 9.2-12.0 FL LOW Review Auto Diff Conf Partial Thromboplastin Time 76827 (Not yet reviewed by provider) Interpretation: Performing Lab: Notes/Report: Diagnosis Description: Other specified complication of cardiac prosthetic devices, implants and grafts, initial encounter Diagnosis Description: Presence of aortocoronary bypass graft Diagnosis Description: Essential (primary) hypertension Diagnosis Description: Hyperlipidemia, unspecified Diagnosis Description: Type 2 diabetes mellitus without complications Diagnosis Description: Chronic obstructive pulmonary disease, unspecified Diagnosis Description: Obstructive sleep apnea hypopnea Diagnosis Description: Alternating esotropia Diagnosis Description: retirement (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 Diagnosis Description: Other personal risk factors Diagnosis Description: Other fatigue Diagnosis Description: Other jail (current) drug therapy Diagnosis Description: Other specified symptoms and signs involving the circulatory and respiratory systems Diagnosis Description: Personal history of other diseases of the circulatory system Diagnosis Description: Encounter for other preprocedural examination Diagnosis Description: Encounter for preprocedural cardiovascular examination Diagnosis Description: Shortness of breath PTT 27.6 22.6-31.8 SEC Therapeutic Range: 60-100. Critical Value Starting at > 100. Basic Metabolic Panel (BMP) 21352 (Not yet reviewed by provider) Interpretation: Performing Lab: Notes/Report: Diagnosis Description: Other specified complication of cardiac prosthetic devices, implants and grafts, initial encounter Diagnosis Description: Presence of aortocoronary bypass graft Diagnosis Description: Essential (primary) hypertension Diagnosis Description: Hyperlipidemia, unspecified Diagnosis Description: Type 2 diabetes mellitus without complications Diagnosis Description: Chronic obstructive pulmonary disease, unspecified Diagnosis Description: Obstructive sleep apnea hypopnea Diagnosis Description: Alternating esotropia Diagnosis 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: 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 Diagnosis Description: Other personal risk factors Diagnosis Description: Other fatigue Diagnosis 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 [address]. CLIA ID#: [id number] BUN 42 7-21 MG/DL HI Creat 1.20 .51-1.17 MG/DL HI Use of this assay is not recommended for patients undergoing treatment with phenindione, due to the potential for falsely depressed results. V-izxqhv-o-benzoquin one imine (NAPQI) is a metabolite of acetaminophen, NAPQI concentrations of apparoximately 10 mg/L correlation to toxic levels of acetaminophen demonstrates a greater than or equil to 10% change in results. NAPQI concentrations greater than this may lead to falsely depressed results for patient samples. GFR 46.5 NA Calculation pe rformed from GFR calculator provided by the [employer]. Glomerular Filtration rate(GRF) is the best overall index of kidney function. Normal GFR varies according to age,sex, body size, and declines with age. The [employer] recommends using the CKD-EPI Creatinine Equation(202) to estimate GFR. Anion Gap 13 5-15 BUN/Creat Ratio 35.0 12.0-20.0 % HI Calcium 9.4 8.7-10.4 MG/DL Osmo Serum,Calculated 308 280-300 MOSM/KG HI Antibody Screen 11334 (Not y et reviewed by provider) Interpretation: Performing Lab: Notes/Report: Diagnosis Description: Other specified complication of cardiac prosthetic devices, implants and grafts, initial encounter Diagnosis Description: Presence of aortocoronary bypass graft Diagnosis Description: Essential (primary) hypertension Diagnosis Description: Hyperlipidemia, unspecified Diagnosis Description: Type 2 diabetes mellitus without complications Diagnosis Description: Chronic obstructive pulmonary disease, unspecified Diagnosis Description: Obstructive sleep apnea hypopnea Diagnosis Description: Alternating esotropia Diagnosis 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: 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 Diagnosis Description: Other personal risk factors Diagnosis Description: Other fatigue Diagnosis 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 Diagnosis Description: Other specified symptoms and signs involving the circulatory and respiratory systems Diagnosis Description: Personal history of other diseases of the circulatory system Diagnosis Description: Encounter for other preprocedural examination Diagnosis Description: Encounter for preprocedural cardiovascular examination Diagnosis Description: Shortness of breath Blood Bank ID [id number] Unknown ABSC Interp Negative ABORh 84865, 81395 (Not yet reviewed by provider) Interpretation: Performing Lab: Notes/Report: Diagnosis Description: Other specified complication of cardiac prosthetic devices, implants and grafts, initial encounter Diagnosis Description: Presence of aortocoronary bypass graft Diagnosis Description: Essential (primary) hypertension Diagnosis Description: Hyperlipidemia, unspecified Diagnosis Description: Type 2 diabetes mellitus without complications Diagnosis Description: Chronic obstructive pulmonary disease, unspecified Diagnosis Description: Obstructive sleep apnea hypopnea Diagnosis Description: Alternating esotropia Diagnosis Description: retirement (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 Diagnosis Description: Other personal risk factors Diagnosis Description: Other fatigue Diagnosis 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 Diagnosis Description: Other specified symptoms and signs involving the circulatory and respiratory systems Diagnosis Description: Personal history of other diseases of the circulatory system Diagnosis Description: Encounter for other preprocedural examination Diagnosis Description: Encounter for preprocedural cardiovascular examination Diagnosis Description: Shortness of breath ABO/Rh Interp O POS Unknown Prothrombin Time 57169 (Not yet reviewed by provider) Interpretation: Performing Lab: Notes/Report: Diagnosis Description: Other specified complication of cardiac prosthetic devices, implants and grafts, initial encounter Diagnosis Description: Presence of aortocoronary bypass graft Diagnosis Description: Essential (primary) hypertension Diagnosis Description: Hyperlipidemia, unspecified Diagnosis Description: Type 2 diabetes mellitus without complications Diagnosis Description: Chronic obstructive pulmonary disease, unspecified Diagnosis Description: Obstructive sleep apnea hypopnea Diagnosis Description: Alternating esotropia Diagnosis Description: retirement (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 Diagnosis Description: Other personal risk factors Diagnosis Description: Other fatigue Diagnosis 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 Diagnosis Description: Other specified symptoms and signs involving the circulatory and respiratory systems Diagnosis Description: Personal history of other diseases of the circulatory system Diagnosis Description: Encounter for other preprocedural examination Diagnosis Description: Encounter for preprocedural cardiovascular examination Diagnosis Description: Shortness of breath ProTime 10.9 9.1-11.9 SEC Normal Range : 9.1-11.9 INR 1.03 .90-1.20 Therapaeutic Range for heart valve replacement: 2.5-3.50 Therapeutic Range: 2.0-3.0 Glucometer WBG--16715 (Not y et reviewed by provider) Interpretation: Performing Lab: Notes/Report: Glucometer WBG 205 65-110 MG/DL HI Result N ot Confirmed~Meter: [id number]~Clay Plant Treater: [id number] ARIE GUTIÉRREZ Chest AP/Lateral (Not yet re viewed by provider) Interpretation: Performing Lab: Notes/Report: See Below For Report Chest AP/Lateral Diagnosis Description: Other specified complication of cardiac prosthetic devices, implants and grafts, initial encounter Read See Below For Report Chest AP/Lateral (Not yet re viewed by provider) Interpretation: Performing Lab: Notes/Report: [id number]=iSite BB ABORH-39538,98184 (Not ye t reviewed by provider) Interpretation: Performing Lab: Notes/Report: BB ABORh Interp O POS Unknown WBC Auto Diff--21058 (Not ye t reviewed by provider) Interpretation: Performing Lab: Notes/Report: Added by Discern Rules Neutro Auto% 60.9 40.0-70.0 % Lymph Auto% 21.4 22.0-44.0 % LOW [place] Auto% 9.6 3.0-7.0 % HI Eos Auto% 5.3 2.0-4.0 % HI Baso Auto% 1.0 0.0-1.0 % NRBC% .00 .00-.20 /100 intact WBC's Neutro Abs 4.67 .80-7.70 Absolute Neutrophil Count 4670 NA Lymph Abs 1.64 .10-4.10 [place] Abs .74 .20-1.00 Eos Abs .41 .00-.40 HI Baso Abs .08 .00-.20 NRBC# .00 .00-.20 X10'3 Imm Gran Abs .14 .00-.10 HI Imm Gran% 1.8 .0-.4 % HI Reason For Referral Reason CTS consult for dirk mary of sternal wire possibly causing an open wound in the left inframammary crease- referred by LISANDRO Castelan. History of CABG in 2004. Soft Tissue Ultrasound of left breast on 04/17/2024 by [facility]- Per LISANDRO Castelan, CT Chest w/o Contrast on 04/24/2024 at [facility] in [facility] Diagnosis 1 Open wound of chest wall with complication, unspecified laterality, initial encounter (S21.109A) Referring Provider First Name Ally Referring Provider Last Name Estevan Referring Provider Speciality Wound Care Referred Organization [facility] Referred Provider Jerson Cardenas Referred Address [address] [place] [address] [address], [place],[address], Referred Provider Specialty Thoracic Paul michaelle General Notes Vivien Song 05/06 03:00:47 PM >Please schedule with Dr. Cardenas for: CTS consult for removal of sternal wire possibly causing an open wound in the left inframammary crease- referred by LISANDRO Castelan. History of CABG in 2004. Soft Tissue Ultrasound of left breast on 04/17/2024 by [facility]- Per LISANDRO Castelan, CT Chest w/o Contrast on 04/24/2024 at [facility] in [facility], Carlota Polk 05/15/2024 04:13:41 PM >Called facility and Jam Ferrell Brittany 05/16/2024 08:20:45 AM >Appointment scheduled on 05 @ 10:30 Referral Priority Routine Medications Medication SIG (Take, Route, Frequency, Duration) Notes Start Date End Date Status Zofran 4mg Active Tylenol Active traMADol HCl 50 MG Tablet 1 tablet as ne eded Orally Once a day Active Spiriva Respimat 1.25 MCG/ACT Aerosol Solution 2 puffs Inhalation Once a day Active Sennosides-Docusate Sodium 8.6-50 MG Tablet 1 tablet as needed Orally Twice a day Active Pantoprazole Sodium 40 MG Tablet Delayed Release 1 tablet Orally Once a day Active Multivitamin Active Colace 100 MG Capsule 1 capsule as neede d Orally Once a day Active HYDROcodone-Acetaminophen 5-325 MG Tablet 1 tablet as needed Orally every 6 hrs Active Mounjaro 7.5 MG/0.5ML Solution Auto-injector as directed Subcutaneous Once a week Active MiraLax Active Breo Ellipta Active Gabapentin 100 MG Capsule 1 capsule Oral ly Twice a day Active Atorvastatin Calcium 20 MG Tablet 1 tablet Orally Once a day A ctive Furosemide 40 MG Tablet 1 tablet Orally Once a day Active Milk of Magnesia 400 MG/5ML Suspension 30ml Orally Once a day Active Aspirin 325 MG Tablet Delayed Release 1 tablet Orally Once a day Active Fleet Enema Active Ketoconazole 2 % Shampoo as directed Externally Active DULoxetine HCl 60 MG Capsule Delayed Release Particles 1 capsule Orally Once a day Active Insulin Lispro 100 UNIT/ML Solution Cartridge 100ml Subcutaneous Three times a day Active Dulcolax 10 MG Suppository 1 suppository as needed Rectal Once a day Active Imodium A-D 2 MG Tablet 1 tablet Orally as needed Active Social History Tobacco Use: Social History Observation Description Date Details (start date - stop date) Former Smoker NA - NA Social History Drugs/Alcohol: Social Info Question Answer Notes Caffeine Intake: 1-2 cups per day Tobacco Use: Social Info Question Answer Notes Tobacco Control (Standard) Tobacco use: Former smoker How long has it been since you last smoked? 1-5 years Additional Details Category Social Info Options Details Drugs/Alcohol: Do you smoke marijuana? De nies Do you drink alcohol? No Problems Problem Type SNOMED Code ICD Code Onset Dates Problem Status W/U Status Risk Notes Problem Type II diabetes mellitus without complication (070101037) Type 2 diabetes mellitus without complications (E11.9) Active confirmed Problem Pain due to vascular prosthetic devices, implants and grafts, initial encounter (T82.848A) Active confirmed Problem Obstructive sleep apnea (23540570) Obstructive sleep apnea (G47.33) Active confirmed Problem Hypertension (98357360) Hypertension (I10) Active confirmed Problem Hyperlipidemia (76093607) Hyperlipidemia (E78.5) Active confirmed Problem Chronic obstructive pulmonary disease (64853993) Chronic obstructive pulmonary disease (COPD) (J44.9) Active confirmed Vital Signs Heart Rate 73 /min 07/04/2024 Temperature 97.9 degrees Fahrenheit 07/04/2024 Oximetry 91 % 07/04/2024 Blood pressure diastolic 86 mm Hg 07/04/2024 Weight-kg 71.80 kg 07/04/2024 Blood pressure systolic 140 mm Hg 07/04/2024 Weight 158.29 lbs 07/04/2024 Encounters Encounter Location Date Provider Diagnosis [facility] [address] [place] [address] 06/24/2024 Jerson Cardenas [facility] [address] [place] [address] 06/18/2024 Jerson Cardenas Other specified complication of cardiac prosthetic devices, implants and grafts, initial encounter T82.897A ; S/P CABG (coronary artery bypass graft) Z95.1 ; Hypertension I10 ; Hyperlipidemia E78.5 ; Type 2 diabetes mellitus without complications E11.9 ; Chronic obstructive pulmonary disease (COPD) J44.9 ; Obstructive sleep apnea G47.33 ; Alternating esotropia H50.05 ; Aspirin long-term use Z79.82 ; At risk for bleeding Z91.89 ; Fatigue R53.83 ; Other jail (current) drug therapy Z79.899 ; Other specified symptoms and signs involving the circulatory and respiratory systems R09.89 ; Personal history of other diseases of the circulatory system Z86.79 ; Pre-op testing Z01.818 ; Pre-operative cardiovascular examination Z01.810 ; Shortness of breath R06.02 ; Encounter for screening for other viral diseases Z11.59 and Pain due to vascular prosthetic devices, implants and grafts, initial encounter T82.848A [facility] [address] [place] [address] 07/04/2024 Diane Rosenbaum S/P CABG (coronary artery bypass graft) Z95.1 ; Pain due to vascular prosthetic devices, implants and grafts, initial encounter T82.848A ; Hypertension I10 and Type 2 diabetes mellitus without complications E11.9 [facility] [address] [place] [address] 05/15/2024 Jerson Cardenas Assessments Encounter Date Diagnosis (ICD Code) Assessment Notes Treatment Notes Treatment Clinical Notes Section Notes 06/18/2024 Other specified complication of cardiac prosthetic devices, implants and grafts, initial encounter (ICD-10 - T82.897A) 1. 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 Alternating esotropia 06/18/2024 S/P CABG (coronary artery bypass graft) (ICD-10 - Z95.1) 1. 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 Alternating esotropia 07/04/2024 Pain due to vascular prosthetic devices, implants and grafts, initial encounter (ICD-10 - T82.848A) Incision is healing well without issue, patient reports pain from the in place wires has resolved.Follow up as needed with heart vascular clinic but no scheduled follow up at this time is necessary. 1. 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 Alternating esotropia 07/04/2024 S/P CABG (coronary artery bypass graft) (ICD-10 - Z95.1) 1. 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 Alternating esotropia 07/04/2024 Hypertension (ICD-10 - I10) 1. 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 Alternating esotropia 06/18/2024 Hypertension (ICD-10 - I10) 1. 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 Alternating esotropia 06/18/2024 Hyperlipidemia (ICD-10 - E78.5) 1. 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 Alternating esotropia 07/04/2024 Type 2 diabetes mellitus without complications (ICD-10 - E11.9) 1. 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 Alternating esotropia 06/18/2024 Type 2 diabetes mellitus without complications (ICD-10 - E11.9) 1. 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 Alternating esotropia 06/18/2024 Chronic obstructive pulmonary disease (COPD) (ICD-10 - J44.9) 1. 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 Alternating esotropia 06/18/2024 Obstructive sleep apnea (ICD-10 - G47.33) 1. 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 Alternating esotropia 06/18/2024 Alternating esotropia (ICD-10 - H50.05) 1. 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 Alternating esotropia 06/18/2024 Aspirin long-term use (ICD-10 - Z79.82) 1. 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 This procedure was explained to the patient. She understands and wishes to proceed 1. 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 Alternating esotropia Plan Of Treatment Pending Test Test Name Order Date Prothrombin Time 85549 06/18/2024 ABORh 43336, 66040 06/18/2024 Antibody Screen 59686 06/18/2024 Basic Metabolic Panel (BMP) 20664 2024 Partial Thromboplastin Time 97867 2024 CBC Reflex Man Diff 59816, 29056 025 Chest PA/Lat-39476 06/18/2024 Electrocardiogram 12 Lead Tracing-55656 06/18/2024 PRBC-LR--P9016 06/18/2024 Glucometer WBG--99005 06/24/2024 Glucometer WBG--45651 06/24/2024 WBC Auto Diff--83101 06/20/2024 Crossmatch--82525 06/20/2024 BB ABORH-88833,22166 06/20/2024 zzzFluoroscopy 06/24/2024 zzzFluoroscopy 06/24/2024 COVID 19 PCR--98749 06/18/2024 Chest AP/Lateral 06/20/2024 Chest AP/Lateral 06/20/2024 Insurance Providers Payer Name Payer Address Payer Phone Subscriber Number Group Number Insured Name Patient Relationship to Insured Coverage Start Date Coverage End Date [place] [address] [place] [phone] [id number] Deyanira Gonsales Self - patient is the insured [address] [place], [place] [address] [phone] [facility] Deyanira Gonsales Self - patient is the insured UHC Medicare Dual Complete PPO [address] [address] [place] [address] [id number] Deyanira Gonsales Self - patient is the insured Medical (General) History Medical History History ICD Code Type 2 Diabetes Chronic Obstructive Pulmonary Disease Obstructive Sleep Apnea Orthostatic Hypertension Anemia Chronic Systolic Congestive Heart Failur e Athscl Heart Disease of [place] coronary artery Hyperlipidemia Anxiety Insomnia Cirrhosis of liver Depression Chronic Kidney Disease Presbyopia Surgical History Surgery Date(Month/Year) Triple Bypass surgery R shoulder surgery x3 2022 R hip surgery Removal of the pacing wire 06/2024 Hospitalization History Reason Date(Month/Year) see above
--- OUTSIDE RECORDS SUMMARY | 2024-11-01 17:54 | XMS_ITS | Clinical Summary ---
Author Organization [facility] Address [address] [place] [address] Care Team Providers Care Manual Qa Tester Name Role Phone Guy Salazar DO Primary Care Provide r Allergies Active Allergy Reactions Criticality Noted Date Comments Cephalexin Hives High 02/04/2009 Fluticasone Propion-Salmeterol Hives High 02/04 Hydrocodone-Acetaminophen Hives High 02/04/2009 Nitrofurantoin Monohyd/M-Cryst Hives High 02/04 Prednisone Hives High 02/04/2009 Medications lidocaine (LIDODERM) 5 % Adhesive Patch, Medicated Apply 1 Patch to affected area every 24 hours. 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 Tablet 1 04/07/19 18 Active insulin glargine,hum.rec.a nlog (LANTUS SUBCUT) Inject 40 Units by subcutaneous injection daily at bedtime . 06/24/19 15 Active traMADoL (ULTRAM) 50 mg tabletIndications: Diabetic polyneuropathy associated with diabetes mellitus due to underlying condition Take 1 Tablet (50 mg) by mouth every 8 hours as needed for Pain. Will fill until next appointment in March Tablet 2 12/29/19 22 Active zolpidem (AMBIEN) 5 mg tablet Take 2.5 mg by mouth 1 time daily as needed . 10/17/19 17 Active liraglutide (Victoza 3-Manjinder) 0.6 mg/0.1 mL (18 mg/3 mL) Inject 1.8 mg by subcutaneous injection daily before lunch . 06/17/19 17 Active insulin aspart U-100 (NovoLOG Flexpen U-100 Insulin) 100 unit/mL pen syringe Inject 14 Units by subcutaneous injection 3 times daily with meals Units vary on how much Pt. Eats.. 01/19/20 16 Active Active Problems Problem Noted Date Diagnosed Date Type 2 diabetes mellitus with diabetic neuropath y 07/26/2017 Overview (06/03/2020): Changed to E11.[address] Burton. 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 Resolved Problems Problem Noted Date Diagnosed Date Resolved Date Neuropathy in diabetes 07/30/201206/23 Immunizations Immunization Administration Dates Next Due (ADACEL/BOOSTRIX)(10 YR UP) TDAP VACCINE, 0.5ML, IM 12/18/2022 Pneumococcal conjugate, unspecified formulation 12/30/2012 Family History Relation Name Status Comments Father Mother Alive Social History Tobacco Use Types Packs/Day Years Used Date Smoking Tobacco: Every Day Cigarettes Smokeless Tobacco: Never Alcohol Use Standard Drinks/Week Comments No 0 (1 standard drink = 0.6 oz pur e alcohol) Feeling Safe Answer Date Recorded Are you in a relationship wi th someone who hurts you emotionally and/or physically? No 12/19/2022 Comments Unknown Sex and Gender Information Value Date Recorded Sex Assigned at Not on file Legal Sex Female 5:18 PM DIRECTOR OF QUALITY IMPROVEMENT Gender Identity Not on file Sexual Orientation Not on file Last Filed Vital Signs Vital Sign Reading Time Taken Comments Blood Pressure 127/64 12/19/2022 2:00 PM DIRECTOR OF QUALITY IMPROVEMENT Pulse 85 12/19/2022 2:00 PM DIRECTOR OF QUALITY IMPROVEMENT Temperature 37.1 C (98.8 F) 12/18/2022 9:23 PM DIRECTOR OF QUALITY IMPROVEMENT Respiratory Rate 22 12/19/2022 2:00 PM DIRECTOR OF QUALITY IMPROVEMENT Oxygen Saturation 94% 12/19/2022 2:00 PM DIRECTOR OF QUALITY IMPROVEMENT Inhaled Oxygen Concentration - - Weight 68.9 kg (152 lb) 04/20/2020 8:36 AM CDT Height 157.5 cm (5' 2 ) 04/20/2020 8:36 AM CDT Body Mass Index 27.8 04/20/2020 8:36 AM CDT Plan of Treatment Health Maintenance Due Date Last Done Comments DIABETES ANNUAL FOOT EXAM 09/07/1965 DIABETES MICROALBUMIN ANNUAL SCREEN 09/07/1965 LDL CHOLESTEROL ANNUAL 09/07/1965 PNEUMOCOCCAL VACCINE 50+ YEA RS (1 of 2 - PCV) 09/07/1966 12/30/2012 ZOSTER VACCINE (1 of 2) 09/07/1997 OSTEOPOROSIS SCREENING 09/07/2012 DIABETES ANNUAL RETINAL EXAM 08/25/2016 08/26/2015, 11/19/2013 DIABETES HBA1C Q 6 MONTHS 08/21/20212021, 11/16/2016, 08/21/2016, Additional history exists RSV VACCINE (60+ or ) (1 - 1-dose 75+ series) 09/07/2022 INFLUENZA VACCINE (#1) 2024 DTAP/TDAP/TD VACCINES (2 - T d or Tdap) 12/18/2032 12/18/2022 COLORECTAL SCREENING Discontinued 08/15/2013 Colorectal Cancer Screening Discontinued FIT-DNA Q 3 years Discontinued FIT/FOBT Q 1 year Discontinued Flex Sig/CT Colonography Q 5 years Discontinued Medical Devices Implanted Type Area Director Orange Device Identifier Shelf Expiration Date Model / Serial / Lot Biological Implanted:Qty: 1 on 08/22/2010 Other Left: Elbow [employer] 11/22/2012 [id number] / NA / [id number] Plate Implanted:Qty: 1 on 08/22/2010 Plate Left: Elbow [employer] [id number] / NA / [id number] Screw Implanted:Qty: 1 on 08/22/2010 Screw Left: Elbow [employer] 13069 / NA / [id number] Screw Implanted:Qty: 1 on 08/22/2010 Screw Left: Elbow [employer] [id number] / NA / [id number] Log 360777 - [place] Variax Elbow Locking Plate Sys - 1 - Screw [address] 3.5x16mm [id number] Implanted:Qty: 1 on 08/22/2010 Screw Left: Elbow [employer] [id number] / NA / [id number] Log 973609 - [place] [employer] Elbow Locking Plate Sys - 1 - Screw St Loc 3.5x14mm [id number] Implanted:Qty: 1 on 08/22/2010 Screw Left: Elbow [employer] [id number] / NA / [id number] Log [id number] - [employer] Elbow Locking Plate Sys - 1 - Screw St Loc 3.5x16mm [id number] Implanted:Qty: 3 on 08/22/2010 Screw Left: Elbow [employer] [id number] / NA / [id number] Log [id number] - [employer] Elbow Locking Plate Sys - 1 - Screw St Loc 3.5x18mm [id number] Implanted:Qty: 1 on 08/22/2010 Screw Left: Elbow [employer] [id number] / NA / [id number] Log 863505 - [employer] Elbow Locking Plate Sys - 1 - Screw St Loc 3.5x8mm [id number] Implanted:Qty: 1 on 08/22/2010 Screw Left: Elbow [employer] [id number] / NA / [id number] Screw Implanted:Qty: 1 on 08/22/2010 Screw Left: Elbow [employer] [id number] / NA / [id number] Explanted Type Area Director Orange Device Identifier Shelf Expiration Date Model / Serial / Lot Log [id number] - [employer] Elbow Locking Plate Sys - 1 - Screw [address] 3.5x24mm [id number] Explanted:Qty: 1 on 08/22/2010 Screw Left: Elbow [employer] [id number] / NA / [id number] Explanted:Qty: 2 on 08/22/2010 Wire Left: Elbow [employer] [id number] / NA / [id number] Plate Explanted:Qty: 1 on 08/18/2013 Left: Elbow [employer] Description:nedra plate Screw Explanted:Qty: 10 on 08/18/2013 by Bairon Gorman MD Left: Elbow [employer] Description:, 10 screws from nedra Insurance MEDICAID [facility] DUAL COMPLETE HMO [facility] [id number] Care Teams Manual Qa Tester Relationship Specialty Start Date End Date Guy Salazar DO [address] [facility] [address] [place] [address] PCP - General 04/15/20
--- OUTSIDE RECORDS SUMMARY | 2024-11-01 17:54 | XMS_ITS | Encounter Summary ---
Author Organization [facility] Address [address] [place] [address] Care Team Providers Care New Car Sales Manager Name Role Phone Guy Salazar DO Primary Care Provide r Encounter Details Date Type Department Care Team (Late st Contact Info) Description 09/18/2007 Outpatient Historical [facility] [place] [address] [address] 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
--- OUTSIDE RECORDS SUMMARY | 2024-11-01 17:54 | XMS_ITS | Encounter Summary ---
Author Organization [facility] Address [address] [place] [address] Care Team Providers Care Excelsior Cutter Name Role Phone Guy Salazar DO Primary Care Provide r Encounter Details Date Type Department Care Team (Latest Contact Info) Description 10/04/2007 Outpatient [facility] [address] [address] Bairon Gorman MD NO ADDRESS ON FILE Carpal Tunnel Syndrome Social History Tobacco Use Types Packs/Day Years Used Date Smoking Tobacco: Never Assessed Comments Unknown Sex and Gender Information Value Date Recorded Sex Assigned at Not on file Legal Sex Female 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 Gender Identity Not on file Sexual Orientation Not on file documented as of this encounter Plan of Treatment Not on file documented as of this encounter Procedures Procedure Name Priority Date/Time Associated Diagnosis Comments POC GLUCOSE Routine 10/10/2007 2:35 PM CDT POC GLUCOSE Routine 10/10/2007 1:36 PM CDT documented in this encounter Results * POC GLUCOSE (10/10/2007 2:35 PM CDT) GLUCOSE POC 92 60 - 100 mg/dL [facility] Venous blood specimen (specimen) 10/10/2007 2:35 PM CDT 10/11/2007 6:08 AM CDT Bairon Gorman MD POINT OF CARE TESTING Final Result Performing Organization Address City/[facility] de Phone Number INTERFACE SYSTEM Refer to clinic/hospital department [facility] CLIA# [id number] [address] [place] [address] * POC GLUCOSE (10/10/2007 1:36 PM CDT) GLUCOSE POC 91 60 - 100 mg/dL [facility] Venous blood specimen (specimen) 10/10/2007 1:36 PM CDT 10/11/2007 6:08 AM CDT Bairon Gorman MD POINT OF CARE TESTING Final Result Performing Organization Address [facility] Phone Number INTERFACE SYSTEM Refer to clinic/hospital department [facility] CLIA# [id number] [address] [place] [address] documented in this encounter Visit Diagnoses Diagnosis Carpal tunnel syndrome documented in this encounter Care Teams Excelsior Cutter Relationship Specialty Start Date End Date Guy Salazar DO [address] [address] PCP - General Internal Medicine 10/23/16 documented as of this encounter
--- OUTSIDE RECORDS SUMMARY | 2024-11-01 17:54 | XMS_ITS | Encounter Summary ---
Author Organization [facility] Address [address] [place] [address] Care Team Providers Care Emergency Preparedness Coordinator Name Role Phone Guy Salazar DO Primary Care Provide r Reason for Referral * Outpatient Services (Routine) - Closed Specialty Diagnoses / Procedures Referred By Bry pizano Referred To Contact Diagnoses Pain Procedures XR FLUORO LESS THAN 1 HOUR Papa Anderson MD [address] [place] [address] Phone: tel: fax: Referral ID Status Reason Start Date Expiration Date Visits Re quested Visits Authorized [id number] Closed 01/03/2017 02/03/2018 1 1 TRANSFER CLERK Encounter Details Date Type Department Care Team (Late st Contact Info) Description 01/03/2017 Ancillary [place] [facility] [place] [address] [place] [phone] Papa Anderson MD [address] [place] [phone] Pain Social History Tobacco Use Types Packs/Day Years Used Date Smoking Tobacco: Every Day Cigarettes 1 45 Smokeless Tobacco: Never Alcohol Use Standard Drinks/Week Comments No 0 (1 standard drink = 0.6 oz pur e alcohol) Comments No Sex and Gender Information Value Date Recorded Sex Assigned at Not on file Legal Sex Female 4:26 AM HEAD TRANSFER CLERK Gender Identity Not on file Sexual Orientation [...] * XR FLUORO LESS THAN 1 HOUR (01/03/2017 1:06 PM HEAD TRANSFER CLERK) Narrative 01/03/2017 11:31 PM HEAD TRANSFER CLERK Order information only. Exam was auto-finalized. us Papa Anderson MD DIAGNOSTIC IMAGING ORDERABLE S Final Result documented in this encounter Visit Diagnoses Diagnosis Pain Generalized pain Pain Generalized pain documented in this encounter Care Teams Emergency Preparedness Coordinator Relationship Specialty Start Date End Date Guy Salazar DO [address] [phone] PCP - General Internal Medicine 10/23/16 documented as of this encounter
--- OUTSIDE RECORDS SUMMARY | 2024-11-01 17:54 | XMS_ITS | Encounter Summary ---
Author Organization [facility] Address [address] [place] [address] Care Team Providers Care Stave And Bolt Equalizer Name Role Phone Guy Salazar DO Primary Care Provide r Encounter Details Date Type Department Care Team (Late st Contact Info) Description 08/29/2013 Ancillary Orders [facility] Orthoped[facility] - Orthopedic [address] [phone] Bairon Gorman MD NO ADDRESS ON FILE Pain (Primary Dx) Social History Tobacco Use Types Packs/Day Years Used Date Smoking Tobacco: Every Day Cigarettes 1 45 Smokeless Tobacco: Never Alcohol Use Standard Drinks/Week Comments No 0 (1 standard drink = 0.6 oz pur e alcohol) Comments Unknown Sex and Gender Information Value Date Recorded Sex Assigned at Not on file Legal Sex Female 4:26 AM DISK RECOATER Gender Identity Not on file Sexual Orientation [...] Results * XR ELBOW 2 VW LEFT (08/29/2013 9:56 AM CDT) Anatomical Region Laterality Modality Upper Extremity Computed Radiogr aphy Narrative 10/29/2013 12:01 PM CDT AP and lateral views of the left elbow reveal overlying skin clips noted with posterior splint in place. There is absence of previously observed metallic fixation involving the proximal ulna. Some deformity of the radial head/neck is suggested. No acute bony abnormalities are evident. Procedure Note Bairon Gorman MD - 10/29/2013 AP and lateral views of the left elbow reveal overlying skin clips notedwith posterior splint in place. There is absence of previously observedmetallic fixation involving the proximal ulna. Some deformity of theradial head/neck is suggested. No acute bony abnormalities are evident. us Bairon Gorman MD DIAGNOSTIC IMAGING ORDERABLE S Final Result documented in this encounter Visit Diagnoses Diagnosis Pain- Primary Generalized pain documented in this encounter Care Teams Stave And Bolt Equalizer Relationship Specialty Start Date End Date Guy Salazar DO [address] [phone] PCP - General Internal Medicine 10/23/16 documented as of this encounter
--- OUTSIDE RECORDS SUMMARY | 2024-11-01 17:54 | XMS_ITS | Encounter Summary ---
Author Organization [facility] Address [address] [place] [address] Care Team Providers Care Strategic Insights Lead Name Role Phone Guy Salazar DO Primary Care Provide r Encounter Details Date Type Department Care Team (Late st Contact Info) Description 10/04/2007 Outpatient [facility] [address] [address] Bairon Gorman MD NO ADDRESS ON FILE Social History Tobacco Use Types Packs/Day Years Used Date Smoking Tobacco: Never Assessed Comments Unknown Sex and Gender Information Value Date Recorded Sex Assigned at Not on file Legal 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 Gender Identity Not on file Sexual Orientation Not on file documented as of this encounter Plan of Treatment Not on file documented as of this encounter Procedures Procedure Name Priority Date/Time Associated Diagnosis Comments HEMOGLOBIN A1C Routine 10/04/2007 12:30 PM CDT documented in this encounter Results * (ABNORMAL) HEMOGLOBIN A1C (10/04/2007 12:30 PM CDT) HEMOGLOBIN A1C 6.4(H) 4.0 - 6.0 %A1C [facility] Blood specimen (specimen) 10/04/2007 12:30 PM CDT 10/04/2007 12:30 PM CDT us Bairon Gorman MD CHEMISTRY ORDERABLES Final R esult INTERFACE SYSTEM Refer to clinic/hospital department [facility] CLIA# [id number] [address] [place] [address] documented in this encounter Visit Diagnoses Not on filedocumented in this encounter Care Teams Strategic Insights Lead Relationship Specialty Start Date End Date Guy Salazar DO [address] [address] PCP - General Internal Medicine 10/23/16 documented as of this encounter
--- OUTSIDE RECORDS SUMMARY | 2024-11-01 17:54 | XMS_ITS | Encounter Summary ---
Author Organization [facility] Address [address] [place] [address] Care Team Providers Care Core Analyst Name Role Phone Guy Salazar DO Primary Care Provide r Encounter Details Date Type Department Care Team (Late st Contact Info) Description 12/21/2009 Ancillary Orders [facility] [address] [place] [address] Bairon Gorman MD NO ADDRESS ON FILE Pain Social History Tobacco Use Types Packs/Day Years Used Date Smoking Tobacco: Every Day Cigarettes 1 45 Alcohol Use Standard Drinks/Week Comments No 0 (1 standard drink = 0.6 oz pur e alcohol) Comments Unknown Sex and Gender Information Value Date Recorded Sex Assigned at Not on file Legal Sex Female 4:26 AM [employer] Gender Identity Not on file Sexual Orientation Not on file documented as of this encounter Plan of Treatment Not on file documented as of this encounter Results * XR ELBOW 2 VW LEFT (12/21/2009 11:39 AM STATION MECH[employer]IC HEL[employer]) Anatomical Region Laterality Modality Upper Extremity Computed Radiogr aphy Narrative 12/29/2009 7:34 AM [employer]ATION MECH[employer]IC HEL[employer] Left elbow x-rays, 2 views, reveal a cannulated large screw present traversing from the tip of the olecranon approximately and extending into the intramedullary shaft of the ulna with a washer present proximally as well. A wire is noted to extend across the radius and ulna, going from lateral to medial in direction. The medial side of the wire appears to be tenting the skin. Procedure Note Bairon Gorman MD - 12/29/2009 Left elbow x-rays, 2 views, reveal a cannulated large screw presenttraversing from the tip of the olecranon approximately and extending intothe intramedullary shaft of the ulna with a washer present proximally aswell. A wire is noted to extend across the radius and ulna, going fromlateral to medial in direction. The medial side of the wire appears to betenting the skin. Bairon Gorman MD DIAGNOSTIC IMAGING ORDERABLE S Final Result * XR WRIST 2 VW LEFT (12/21/2009 11:39 AM STATION MECHANIC HEL[employer]) Anatomical Region Laterality Modality Wrist / Hand Computed Radiogr aphy Narrative 12/29/2009 7:34 AM [employer]ATION MECH[employer]IC HEL[employer] Plain film x-rays obtained today reveal pin in place, left scaphoid, essentially nondisplaced fracture noted on 2 views of the left wrist. Procedure Note Bairon Gorman MD - 12/29/2009 Plain film x-rays obtained today reveal pin in place, left scaphoid,essentially nondisplaced fracture noted on 2 views of the left wrist. Bairon Gorman MD DIAGNOSTIC IMAGING ORDERABLE S Final Result documented in this encounter Visit Diagnoses Diagnosis Pain Generalized pain documented in this encounter Care Teams Core Analyst Relationship Specialty Start Date End Date Guy Salazar DO [address] [facility] [address] [place] [address] PCP - General Internal Medicine 10/23/16 documented as of this encounter
--- OUTSIDE RECORDS SUMMARY | 2024-11-01 17:54 | XMS_ITS | Data Portability ---
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 stage 3A 666638381 N18.31 [id number] Reid Black MD [facility] ([facility]) [address] [place] [address] 34920-631 5 01/17/2023 09:22:54 01/17/2023 12:49:31 Need for personal care assistance [phone] 2629288 Z74.1 Lives in retirement 16 2593493 Z76.89 Anxiety state 529692747 F41.9 Chronic ob structive pulmonary disease 05315986 J44.9 stable Diabetes mellitus 048978 09 E13.42 Nicotine dependence 5629 4008 F17.081 [id number] ALEM RUANO PA-C [facility] ([facility]) [address] [place] [address] 41496-571 5 02/07/2023 11:59:11 03/05/2023 11:14:03 Chronic obstructive pulmonary disease 88948859 J44.9 methocarba mol, decrease trazadone2 5mg at hs due to staff reporting she sleeps all day.Explai melonie that I thought it best if she stay and NH. she has not been able to manage her own meds for a while. Diabetes mellitus 307198 09 E13.42 [id number] Reid Black MD [facility] ([facility]) [address] [place] [address] 74069-818 5 02/14/2023 07:47:41 02/18/2023 21:34:21 Need for personal care assistance [id number] 3086991 Z74.1 Lives in retirement 16 5406833 Z76.89 Anxiety state 242889872 F41.9 stable Chronic ob structive pulmonary disease 04882658 J44.9 stable O2 dependant Diabetes mellitus 805776 09 E13.42 Obstructiv e sleep apnea syndrome 83029836 G47.33 [id number] ALEM RUANO PA-C [facility] ([facility]) [address] [place] [address] 24465-202 5 04/04/2023 12:12:01 04/14/2023 22:17:35 Diabetes mellitus 39019442 E13.42 a1c in 12/28 11%, fbs 224, increase lantus 60units , updated labs cbc/cmp/a1 c,d/c trazodone due to sleeping most of the day Chronic ob structive pulmonary disease 88882048 J44.9 methocarba mol, decrease trazadone2 5mg at hs due to staff reporting she sleeps all day.Explai melonie that I thought it best if she stay and NH. she has not been able to manage her own meds for a while. Chronic ki dney disease stage 3A 613189595 N18.31 Chronic sy stolic heart failure 073803739 I50.22 Cirrhosis - non-alcoholic 972837084 K74.60 [id number] Reid Black MD [facility] ([facility]) [address] [place] [address] 76994-377 5 04/11/2023 07:59:03 04/11/2023 15:48:56 Need for personal care assistance [id number] 2435252 Z74.1 Lives in retirement 16 1260863 Z76.89 Anxiety state 293869123 F41.9 stable Chronic ob structive pulmonary disease 97317401 J44.9 stable O2 dependant Obstructiv e sleep apnea syndrome 23740051 G47.33 Diabetes mellitus 774798 09 E13.42 imporoved control [id number] ALEM RUANO PA-C [facility] ([facility]) [address] [place] [address] 97227-329 5 05/16/2023 15:36:38 06/01/2023 07:22:46 Chronic obstructive pulmonary disease 98105600 J44.9 I explained to pt for the longest quality life, she would be best to stay in NH for help wiht ADLs and medication managment. She has done that best in the 2 yrs I know her this last 6 months since living in SNF. She has stopped smoking. Her A1C is 8.If she was to go home she need alot of social support that her family is just not able to give at this time. Diabetes mellitus 357847 09 E13.42 45 min spent with pt and her family [id number] Reid Black MD [facility] ([facility]) [address] [place] [address] 92792-336 5 06/20/2023 08:11:58 06/20/2023 14:13:58 Need for personal care assistance [phone] 3243907 Z74.1 Lives in retirement 16 0552266 Z76.89 Anxiety state 685214671 F41.9 stable Chronic ob structive pulmonary disease 57175702 J44.9 stable O2 dependant Diabetes mellitus 297046 09 E13.42 imporoved control Mixed hyperlipidemia 267 257966 E78.2 Obstructiv e sleep apnea syndrome 85579546 G47.33 Osteoporosis 39367271 M8 1.0 [id number] ALEM RUANO PA-C [facility] ([facility]) [address] [place] [address] 30346-997 5 06/27/2023 11:21:14 07/16/2023 07:36:32 Diabetes mellitus 17297148 E13.42 LANTUS 66UNITS Q HS, HUMALOG 10UNITS AC AND AGGRESSIVE SSWill increase her insulin. encouraged better food choices. Her last A1C was 8.7 which is the best I have ever seen her. [id number] ALEM RUANO PA-C [facility] ([facility]) [address] [place] [address] 55484-777 5 07/25/2023 13:34:44 08/13/2023 07:10:33 Fracture of humerus 38678972 S42.301A xanax .5mg po bid prn x 14 daysf/u with ortho next week. Staff is on top of her pain meds to help with pain control which has been difficult. she is in an immobilize r.Anxiety is high to due her pain Diabetes mellitus 211430 09 E13.42 monitor has SS for spikes. Chronic ob structive pulmonary disease 78417284 J44.9 [id number] ALEM RUANO PA-C [facility] ([facility]) [address] [place] [address] 64925-379 5 08/01/2023 10:24:09 08/15/2023 08:42:32 Constipation 93775905 K59.00 colace 100mg bid Fracture of humerus 6630 8002 S42.301A Has appt next week with ortho. hopefully they will operate to get her more pain control and stabilize the bone [id number] ALEM RUANO PA-C [facility] ([facility]) [address] [place] [address] 86164-806 5 08/08/2023 12:49:25 08/17/2023 14:23:56 Diabetes mellitus 06149402 E13.42 d/c humalog 10units change to ss Fracture of humerus 6630 8002 S42.301A right humeral fracture surgery 5 days ago Delirium 4693329 R41.0 continue to encouraged getting up and out of room. taper off opiates/be nzos if able. monitor for s/s if infection. monitor bowel and bladder for constipati on and urine retention [id number] Reid Black MD [facility] ([facility]) [address] [place] [address] [phone] 5 08/15/2023 08:09:42 08/15/2023 17:02:18 Need for personal care assistance [id number] 5414850 Z74.1 Anxiety state 778270139 F41.9 improved with alprazolam without sedation. Will need to continue that for now. Chronic ob structive pulmonary disease 19176029 J44.9 stable O2 dependant Fracture of humerus 6630 8002 S42.301A slow improvemen t [id number] ALEM RUANO PA-C [facility] ([facility]) [address] [place] [address] 69106-887 5 08/22/2023 12:45:18 2023 08:23:54 Fracture of humerus 50603303 S42.301A right humeral fracture no changestaf f cutting back on her meds. Right radi al nerve palsy 5546318364 4698293 G56.31 [id number] ALEM RUANO PA-C [facility] ([facility]) [address] [place] [address] 30646-697 5 08/29/2023 13:08:05 10/09/2023 12:46:49 Local infection of wound 15850744 T14.90XD LINEZOIDLI D 600MG BID X 10 DAYS CBC/BMPmon itor closely for worsing s/s of infection [id number] ALEM RUANO PA-C [facility] ([facility]) [address] [place] [address] 31194-875 5 09/05/2023 10:55:17 10/09/2023 12:59:43 Infection of humerus 286941404 B99.9 due to significan t change of redness, swelling and fluctuence over her previous incision I am sending her to ER for eval and tx [id number] ALEM RUANO PA-C [facility] ([facility]) [address] [place] [address] 52575-280 5 09/19/2023 12:42:43 10/09/2023 13:05:44 Methicillin resistant Staphylococcus aureus infection 766042563 A49.02 Will be on IV Vancomycin x 6 weeks. With troughs drawn and pharmacy adjusting doses. MRSA infec tion of postoperative wound 793867832 B95.62 Infection associated with orthopedic device 553158609 B99.9 HARDWARE REMOVED 09/12/23 [id number] ALEM RUANO PA-C [facility] ([facility]) [address] [place] [address] 96601-194 5 10/03/2023 13:31:48 10/22/2023 14:42:24 Diabetes mellitus 42222020 E13.42 a1c, d/c metoprolol Fracture of humerus 6630 8002 S42.301A with infection on 6 weeks of IV antibiotic s. healing well. Chronic ob structive pulmonary disease 12959120 J44.9 Anemia 086293844 D64.9 [id number] Reid Black MD [facility]) [address] [place] [address] 52460-673 5 10/10/2023 08:10:23 10/10/2023 17:52:09 Lives in retirement 023610251 Z76.89 Need for [facility] care assistance [id number] 9987870 Z74.1 Right radi al nerve palsy 6252246690 0083483 G56.31 Pain, will begin some Gabapentin 100mg bid and titrate up as needed. [id number] ALEM RUANO PA-C [facility] ([facility]) [address] [place] [address] 24481-420 5 10/17/2023 11:32:48 10/23/2023 14:04:43 Fracture of humerus 63169271 S42.301A healing. STill on IV antibiotic s for infected hardware that was removed. Right radi al nerve palsy 1935265492 1718829 G56.31 ot help with brace, possible a different style Chronic ob structive pulmonary disease 86496136 J44.9 insurance is not wanting to pay for her anoro. Will see what the preferred LABA/LAMA is for her. [id number] ALEM RUANO PA-C [facility] ([facility]) [address] [place] [address] 79177-837 5 11/07/2023 11:12:36 12/04/2023 13:35:14 Abrasion of skin of right wrist region 9856677993 5101277 S60.811A CONTINUE WITH MAGAN AND COVER Right radi al nerve palsy 3512126116 7843972 G56.31 ot help with brace, possible a different style [id number] ALEM RUANO PA-C [facility] ([facility]) [address] [place] [address] 06447-133 5 12/05/2023 10:49:27 12/29/2023 22:06:46 Diabetes mellitus 38103520 E13.42 a1c, d/c SUCRALFATE SUGARS REVIEWED Fracture of shoulder 903 7848903 9167146 S42.90XG OUT OF SLING OT/PT [id number] Reid Black MD [facility] ([facility]) [address] [place] [address] 92772-468 5 12/19/2023 08:37:32 12/20/2023 14:34:11 Need for personal care assistance [id number] 6910021 Z74.1 Lives in retirement 16 1249279 Z76.89 Right radi al nerve palsy 8010021712 8315897 G56.31 some improvemen t in pain with the Gabapentin . Diabetes mellitus 724429 09 E13.42 imporoved control Chronic ob structive pulmonary disease 87911245 J44.9 stable O2 dependant [id number] ALEM RUANO PA-C [facility] ([facility]) [address] [place] [address] 60404-971 5 01/23/2024 10:36:02 02/08/2024 21:27:36 Acute exacerbation of chronic obstructive pulmonary disease 626182381 J44.1 laurent amaro qid Candidiasis of skin 4988 3006 B37.2 nystatin cream bid [id number] ALEM RUANO PA-C [facility] ([facility]) [address] [place] [address] 23510-813 5 03/05/2024 10:23:07 03/11/2024 12:37:01 Diabetes mellitus 61771854 E13.42 INCREASE LANTUS TO 60UNITS QDINSULIN LISPRO 12UNITS AC AND MILD SS [id number] ALEM RUANO PA-C [facility] ([facility]) [address] [place] [address] 88546-924 5 04/02/2024 10:44:17 04/02/2024 17:13:57 History of fall 560531307 Z91.81 er visit notes reviewed, Pain of ri ght hip joint 1891083215 47715 M25.551 Gastroesop hageal reflux disease 832142213 K21.9 decrease pantoprazo le to 40mg qd [id number] ALEM RUANO PA-C [facility] ([facility]) [address] [place] [address] 96583-085 5 04/16/2024 10:02:38 04/16/2024 15:55:54 Closed fracture of hip 382376184 S72.001D hydroco apap for pain Diabetes mellitus 779591 09 E13.42 Chronic ob structive pulmonary disease 26709264 J44.9 Chronic sy stolic heart failure 905440663 I50.22 Chronic ki dney disease stage 3A 584006981 N18.31 Hyperlipidemia 17592469 E78.2 Anxiety disorder 2592890 06 F41.9 Essential hypertension 63284502 I10 Abnormal gait 04247595 R 26.2 Frail elderly 597558492 R54 Need for p ersonal care assistance 1597548658 4987337 Z74.1 Long-term oxygen therapy 842685232 Z99.81 History of fall 36580189 9 Z91.81 er visit notes reviewed, [id number] Reid Black MD [facility] ([facility]) [address] [place] [address] 38555-823 5 04/23/2024 08:13:09 04/25/2024 07:01:46 Lives in retirement 725372767 Z76.89 Need for p ersonal care assistance 5515788320 5908017 Z74.1 Diabetes mellitus 114715 09 E13.42 Worsening control, will go to 50 units of glargine insulin at hs. Chronic ob structive pulmonary disease 22423224 J44.9 stable O2 dependant Obstructiv e sleep apnea syndrome 26108911 G47.33 Closed fra cture of hip 255656858 S72.001D Improving condition. [id number] ALEM RUANO PA-C [facility] ([facility]) [address] [place] [address] 01614-772 5 04/30/2024 11:00:26 06/03/2024 22:29:05 Diabetes mellitus 03671747 E13.42 increase insulin units ac and mild ss Closed fra cture of hip 186948470 S72.001D right routine healing post op. no s/s of infection. doing PT/OT. Nodule of lung 217765891 R91.[address] of chest 07/2024 [id number] ALEM RUANO PA-C [facility]) [address] [place] [address] 88195-965 5 05/14/2024 10:51:06 06/06/2024 20:32:24 Diabetes mellitus 74804135 E13.42 increase insulin glargine to 70 units sq hs, mounjaro 2.5mg sub q weekly x 4 then increase to 5mg weekly sub q I recommend starting a GLP1 for sugar controlI explained how GLP1 help to lower sugar. We discussed possible SE of nausea, vomiting, bloating and constipati on. Showed how to use self injection pen. All questions were answered to satisfacti on Pain of ri ght hip joint 3788677616 42856 M25.551 x ray right hip due to continued pain post op 2 months. [id number] ALEM RUANO PA-C [facility] ([facility]) [address] [place] [address] 48406-980 5 06/11/2024 11:03:46 06/27/2024 17:07:52 Polyneuropathy due to diabetes mellitus 47101655 E13.42 Z79.4 37483909 INCREASE MOUNJARO 7.5MG WEEKLY Pain of ri ght hip joint 8012575373 06641 M25.551 last xray showed a screw is pulling out. Ortho offered to remove the screw. family is deciding if they want to do another surgery. [id number] Reid Black MD [facility]) [address] [place] [address] 93496-608 5 06/18/2024 08:01:10 06/18/2024 19:06:28 [id number] ALEM RUANO PA-C [facility] ([facility]) [address] [place] [address] 41407-549 5 06/25/2024 11:03:49 07/14/2024 08:44:58 Skin ulcer 51500456 L98.524 [id number] WIRE REMOVAL, MONITOR Postoperative visit 1836 98496 Z48.89 03738257 [id number] ALEM RUANO PA-C [facility] ([facility]) [address] [place] [address] 05118-049 5 07/02/2024 10:36:38 07/14/2024 10:27:24 History of injury 043990551 Z87.846 [id number] healing well Polyneurop athy due to diabetes mellitus 05288424 E13.42 Z79.4 07219700 monitor her sugars. doing well. Pain of ri ght hip joint 3999085122 81765 M25.551 last xray showed a screw is pulling out. Ortho offered to remove the screw. sounds like the decision has been made to go thru with surgery. date has not been set [id number] ALEM RUANO PA-C [facility]) [address] [place] [address] 88987-195 5 07/30/2024 10:55:46 08/13/2024 07:47:31 Seborrheic dermatitis 18996980 L21.9 45481 KETOCONAZO LE SHAMPOO 2 X WEEK HYDROCORTI SONE CREAM QD ON 7 DAYS OFF 7 DAYS Type 2 alexandro betes mellitus 51375306 E11.9 Z79.4 98244533 A1C 8.8 INCREASE MOUNJARO 10MG WEEKLY [id number] Reid Black MD [facility]) [address] [place] [address] 10436-419 5 08/13/2024 09:01:18 08/14/2024 17:26:29 Need for personal care assistance [id number] 9571762 Z74.1 [id number] Lives in retirement 16 7878175 Z78.9 7461110 Anxiety state 352971904 F41.9 improved with alprazolam without sedation. Will need to continue that for now. Closed fra cture of hip 375941339 S72.001D Improving condition, but nail protruding . Followed by orthopedic s. Diabetes mellitus 806005 09 E13.42 Improved control of sugar. [id number] ALEM RUANO PA-C [facility] ([facility]) [address] [place] [address] 5 10/01/2024 11:18:01 10/21/2024 07:42:52 Type 2 diabetes mellitus 06086400 E11.9 Z79.4 [id number] LISPRO 16UNITS AND increase to MOD SS Inflammato ry dermatosis 948765189 L30.9 43780 TRIAMCINOL ONE .1% QD [id number] Reid Black MD [facility]) [address] [place] [address] 5 10/08/2024 09:26:33 10/08/2024 14:50:26 Coronary arteriosclerosis in [place] artery 4201725766 107 I25.10 stable. Type 2 alexandro betes mellitus 16071943 E11.9 Z79.4 40975999 Improved control of sugar. Polyneurop athy due to diabetes mellitus 97775703 E13.42 Z79.4 [id number] Need for p [facility] care assistance [id number] 5382424 Z74.1 3244635 Lives in retirement 16 4698320 Z78.9 7235410 Health Concerns Section Related Observation LastModified by Organization Detai ls LastModified Time None Recorded Concern Status LastModified by Organization Details LastModified Time None Recorded Advance Directives Directive None Recorded Payers Insurance Date Sequence Insurance Name Policy Number Policy Reyes Covered Member ID Reyes Member ID Guarantor Name 10/07/2024 [place] [facility] Deyanira Gonsales [id number] Deyanira Gonsales 10/07/2024 1 [facility]/A DVANTAGE - HMO) MOD[employer] Deyanira Gonsales [id number] Deyanira oGnsales 10/07/2024 2 [place] Deyanira Gonsales [id number] Deyanira Gonsales Notes Date Note Type Note Provider Name and Address Organization Details Recorded Time 5 text/html DiabetesReported by PatientHPIFor control, patient reportsusually poorly controlledbut reportstreated with insulin,hemoglobin a1c has been 8-9, andhemoglobin a1c goal is less than 6.5(sugars running from 150 to 350s.). For compliance, patient reportsnoncompliant with dietbut reportscompliant with medicationsandcompliant with home glucose monitoring. For duration, patient reportschronic. Musculoskeletal PainReported by PatientHPIFor quality, patient reportssharp. For severity, patient reportsworsening. For location, patient reportsright hip. For duration, patient reportspresent for 1-6 months. For context, patient reportstrauma. For associated symptoms, patient reportsno feverandno tingling. For adls affected, patient reportswalking,bathing, anddressing. For prior tests/treatments, patient reportsprevious surgery.Pt plans on have hip surgery to the screw protruding thru to the acetabulum ALEM RUANO PA-C [address] [place] [address], [phone], [facility] 07/10/2024 20:30:56 5 text/html Skin LesionReported by PatientHPIFor location, patient reportsface. For quality, patient reportsprecipitated by scratchingandbecoming more symptomatic. For severity, patient reportsmoderate. For duration, patient reports1 weeks. For timing, patient reportsabrupt. For context, patient reportsno known trigger. ALEM RUANO PA-C [address] [place], [address], [facility] 08/12/2024 14:19:04 5 text/html Patient has a hip nail that is pulling out. Orthopedics is following closely to decide whether to replace the nail or perform a total hip replacement. She denies significant pain at this time. Reid Black MD [address] [place] [address], [phone], [facility] 08/13/2024 17:16:49 5 text/html DiabetesReported by PatientHPIFor duration, patient reportschronic. For control, patient reportstreated with insulin,hemoglobin a1c has been 8-9, andhemoglobin a1c goal is less than 6.5. For compliance, patient reportscompliant with medications,compliant with follow-up visits,compliant with diet,compliant with physical activity, andcompliant with home glucose monitoring. For self care, patient reportsmonitoring glucose daily. Blood sugars running high this week and staff asks for review and insulin adjustmentsShmary has received some family gifts of high carb snacks this week. she has also been picking at her face. she has hx of seborric dermatitis with flares. ALEM RUANO PA-C [address] [place], [address], [facility] [place] 10/20/2024 22:22:03 5 text/html No new problems or concerns this AM. Reid Black MD [address] [place] [address], [phone], [facility] [place]. 10/08/2024 12:28:48 OBGyn Episode No OBEpisode recorded.
--- OUTSIDE RECORDS SUMMARY | 2024-11-01 17:54 | XMS_ITS | Encounter Summary ---
Author Organization [facility] Address [address] [facility] Attn: [place] [address] Care Team Providers Care Seam Finisher Name Role Phone Guy Salazar DO Primary Care Provide r Encounter Details Date Type Department Care Team (Latest Contact Info) Description 11/07/2000 Emergency [facility] IIIAntoni DO NO ADDRESS ON FILE Social History Tobacco Use Types Packs/Day Years Used Date Smoking Tobacco: Never Assessed Comments Unknown Sex and Gender Information Value Date Recorded Sex Assigned at Not on file Legal Sex Female 4:26 AM [employer] Gender Identity Not on file Sexual Orientation Not on file documented as of this encounter Plan of Treatment Not on file documented as of this encounter Visit Diagnoses Not on filedocumented in this encounter Care Teams Seam Finisher Relationship Specialty Start Date End Date Guy Salazar DO [address] [facility] [address] [place] [address] PCP - General Internal Medicine 10/23/16 documented as of this encounter
--- OUTSIDE RECORDS SUMMARY | 2024-11-01 17:54 | XMS_ITS | Encounter Summary ---
Author Organization [facility] Address [address] [place] [address] Care Team Providers Care House Repairer Name Role Phone Guy Salazar DO Primary Care Provide r Encounter Details Date Type Department Care Team (Latest Contact Info) Description 10/31/2007 Outpatient [facility] [address] [address] Bairon Gorman MD NO ADDRESS ON FILE Carpal Tunnel Syndrome Social History Tobacco Use Types Packs/Day Years Used Date Smoking Tobacco: Never Assessed Comments Unknown Sex and Gender Information Value Date Recorded Sex Assigned at Not on file 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 Gender Identity Not on file Sexual Orientation Not on file documented as of this encounter Plan of Treatment Not on file documented as of this encounter Procedures Procedure Name Priority Date/Time Associated Diagnosis Comments POC GLUCOSE Routine 11/06/2007 1:24 PM CDT POC GLUCOSE Routine 11/06/2007 12:51 PM CDT documented in this encounter Results * POC GLUCOSE (11/06/2007 1:24 PM CDT) GLUCOSE POC 97 60 - 100 mg/dL [facility] Venous blood specimen (specimen) 11/06/2007 1:24 PM CDT 11/07/2007 6:15 AM CDT Bairon Gorman MD POINT OF CARE TESTING Final Result Performing Organization Address City/[facility] de Phone Number INTERFACE SYSTEM Refer to clinic/hospital department [facility] CLIA# [id number] [address] [place] [address] * POC GLUCOSE (11/06/2007 12:51 PM CDT) COMMENT POC Pre Meal [facility] GLUCOSE POC 96 60 - 100 mg/dL [facility] Venous blood specimen (specimen) 11/06/2007 12:51 PM CDT 11/07/2007 6:15 AM CDT Bairon Gorman MD POINT OF CARE TESTING Final Result Performing Organization Address [facility] de Phone Number INTERFACE SYSTEM Refer to clinic/hospital department [facility] CLIA# [id number] [facility]ly [facility] [place] [address] documented in this encounter Visit Diagnoses Diagnosis Carpal tunnel syndrome documented in this encounter Care Teams House Repairer Relationship Specialty Start Date End Date Guy Salazar DO [address] [address] PCP - General Internal Medicine 10/23/16 documented as of this encounter
--- OUTSIDE RECORDS SUMMARY | 2024-11-01 17:54 | XMS_ITS | Encounter Summary ---
Author Organization [facility] Address [address] [place] [address] Care Team Providers Care Heel Wheeler Name Role Phone Guy Salazar DO Primary Care Provide r Reason for Referral * MRI (Routine) - Closed Specialty Diagnoses / Procedures Referred By Bry pizano Referred To Contact Radiology Diagnoses Renal mass, left Procedures MRI ABDOMEN W WO CONTRAST Rosendo Zacarias MD [address] [place] [address] Phone: tel: fax: [facility] MRI [place] [address] [place] [address] Phone: tel: fax: Referral ID Status Reason Start Date Expiration Date V isits Requested Visits Authorized [id number] Closed [facility] View CTS to Schedule 07/15/2020 08/14/2020 1 1 Encounter Details Date Type Department Care Team (Late st Contact Info) Description 04/20/2020 Ancillary Orders [facility] MRI [address] [place] [address] Rosendo Zacarias MD [address] [place] [address] Renal mass, left Social History Tobacco Use Types Packs/Day Years Used Date Smoking Tobacco: Every Day Cigarettes 1 45 Smokeless Tobacco: Never Alcohol Use Standard Drinks/Week Comments No 0 (1 standard drink = 0.6 oz pur e alcohol) Comments No Sex and Gender Information Value Date Recorded Sex Assigned at Not on file 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 No / Unsure 04/20/2020 8:15 AM CDT documented as of this encounter Plan of Treatment Not on file documented as of this encounter Results * MRI ABDOMEN W WO CONTRAST (07/09/2020 1:04 PM CDT) Anatomical Region Laterality Modality Abdomen Magnetic Resonan ce 07/09/2020 1:04 PM CDT Impressions 07/09/2020 1:39 PM CDT IMPRESSION: Please see below. Exam: MRI ABDOMEN W WO CONTRAST Date/Time of Exam: 07/09/2020 1:04 PM Reason For Exam: See Diagnosis. Diagnosis: Renal mass, left. Technique: Abdomen imaged with sequences obtained in several planes pre and post administration of intravenous MultiHance, 20 mL. Findings: Comparison to CT study 02/12/[address] study of 04/20/2020. Examination limited by much motion artifact. Corresponding to region of previously demonstrated partially exophytic posterior left renal mass is localized region of signal heterogeneity grossly approximating an area of 3.8 x 3.5 cm with distortion of calyceal system at least partially reflective of residuals of prior cryoablation. Mildly thickened left posterior pararenal fascia with distortion compatible with prior therapeutic change. Residual tumor within this region cannot be excluded. Relatively small left kidney. No hydronephrosis of left kidney. No hydronephrosis of right kidney. Tiny right renal cyst. Irregular liver contour. Nonspecific dilated gallbladder. Biliary tree within normal limits. Spleen unremarkable. Pancreas unremarkable. Mildly thickened adrenals favoring hyperplasia. No ascites. No gross lymphadenopathy by size criteria. IMPRESSION: Prior cryoablation of left renal mass with residual change of this region of left kidney at least partially reflective of prior therapeutic change; residual tumor cannot be excluded especially given the presence of motion artifact. Narrative Procedure Note Aletha Lazo MD - 07/09/2020 IMPRESSION: Please see below. Exam: MRI ABDOMEN W WO CONTRAST Date/Time of Exam: 07/09/2020 1:04 PM Reason For Exam: See Diagnosis. Diagnosis: Renal mass, left. Technique: Abdomen imaged with sequences obtained in several planes pre and post administration of intravenous MultiHance, 20 mL. Findings: Comparison to CT study 02/12/[address] study of 04/20/2020. Examination limited by much motion artifact. Corresponding to region of previously demonstrated partially exophytic posterior left renal mass is localized region of signal heterogeneity grossly approximating an area of 3.8 x 3.5 cm with distortion of calyceal system at least partially reflective of residuals of prior cryoablation. Mildly thickened left posterior pararenal fascia with distortion compatible with prior therapeutic change. Residual tumor within this region cannot be excluded. Relatively small left kidney. No hydronephrosis of left kidney. No hydronephrosis of right kidney. Tiny right renal cyst. Irregular liver contour. Nonspecific dilated gallbladder. Biliary tree within normal limits. Spleen unremarkable. Pancreas unremarkable. Mildly thickened adrenals favoring hyperplasia. No ascites. No gross lymphadenopathy by size criteria. IMPRESSION: Prior cryoablation of left renal mass with residual change of this region of left kidney at least partially reflective of prior therapeutic change; residual tumor cannot be excluded especially given the presence of motion artifact. Rosendo Zacarias MD MR ORDERABLES Final Result documented in this encounter Visit Diagnoses Diagnosis Renal mass, left Unspecified disorder of kidney and ureter Renal mass, left Unspecified disorder of kidney and ureter documented in this encounter Care Teams Heel Wheeler Relationship Specialty Start Date End Date Guy Salazar DO [address] [address] PCP - General Internal Medicine 10/23/16 documented as of this encounter
--- OUTSIDE RECORDS SUMMARY | 2024-11-01 17:54 | XMS_ITS | Encounter Summary ---
Author Organization [facility] Address [address] [place] [address] Care Team Providers Care Molding Cutter Name Role Phone Guy Salazar DO Primary Care Provide r Encounter Details Date Type Department Care Team (Late st Contact Info) Description 09/10/2007 Outpatient Historical [facility] 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 VITALS: Weight: 167.0 pounds. Pulse: 76. Per minute. BP: 118/70. PRIMARY CARE PHYSICIAN: Dr. Rivera in [place]. REASON FOR CONSULTATION: Severe paresthesia in both upper extremities. HISTORY OF PRESENT ILLNESS: This is a 62-year-old lady who was sent here for the above chief complaint. For the past few years, she started to have some pain in the cervical area but she describes itas dull pain. She also has severe numbness and tingling in both arms and hands. It has been gradually getting worse. Woke her up at night, affecting her driving. She had MRI of the cervical spine done 2 years ago. She was told she needed surgery but she refused that. She denies any problems in the lower extremities nor any bowel or bladder disturbance. PAST MEDICAL HISTORY: Arthritis, diabetes, coronary artery disease, cardiac bypass surgery, right shoulder surgery. Still has difficulty with range of motion in the right shoulder. Tubal ligation, cataract surgery. MEDICATIONS: She is on IM shot once daily for osteoporosis, Diovan, Vytorin, metformin, aspirin. There is another medication, she does not remember the name. ALLERGIES: PREDNISONE, VICODIN, CEPHALEXIN, MICROBID. FAMILY HISTORY, SOCIAL HISTORY AND REVIEW OF SYSTEMS: Documented in the chart dated September 10, 2007. PHYSICAL EXAMINATION: NEUROLOGIC: Mental Status: She is alert. She is oriented to time, place and person. Normal language and comprehension. Cranial Nerves: Pupils are equal, round, and responding to the light. Visual beltran are full. Extraocular movement intact. Normal facial sensation. No facial weakness. Lower cranial nerves IX throughXII exam normal. Motor: Her gait is normal, muscle tone is normal, no focal weakness. Reflexes: 2/5 bilaterally symmetrical. Plantar reflexes downgoing. Sensory: Normal. MRI of the cervical spine was done in July of 2005 which showed degenerative disk changes in C5-C6. ASSESSMENT AND PLAN: Severe paresthesia in both upper extremities. At this point, I really doubt the MRI of the cervical spine finding explains her symptoms. She probably has a combination of peripheral entrapment neuropathy plus cervical spine degenerative disk disease. Therefore, I will repeat MRI of the cervical spine and also schedule herto have nerve conduction EMG studies. Further recommendations depend on testing results. A copy of this consult was sent to Gee Gutierres M.D. Tamiko Burton M.D. [facility] Electronically Signed by Tamiko Burton M.D. 09/11/2007 14:00 , A, 530/620 Document #: [id number] cc: Gee Gutierres M.D. documented in this encounter Plan of Treatment Not on file documented as of this encounter Procedures Procedure Name Priority Date/Time Associated Diagnosis Comments MRI CERVICAL W WO CONTRAST Routine 08/07/2012 9:13 AM CDT MRI CERVICAL W WO CONTRAST Routine 09/18/2007 2:11 PM CDT MRI CERVICAL W WO CONTRAST Routine 09/18/2007 2:11 PM CDT MRI CERVICAL W WO CONTRAST Routine 09/18/2007 2:11 PM CDT MRI CERVICAL W WO CONTRAST Routine 09/18/2007 2:11 PM CDT documented in this encounter Results * MRI CERVICAL W WO CONTRAST (08/07/2012 9:13 AM CDT) Anatomical Region Laterality Modality Spine Other Narrative 08/07/2012 9:13 AM CDT Final Exam, Report in Cerner. Procedure Note [facility] Ángel, Radiologist, MD - 08/07/2012 Final Exam, Report in Cerner. Ariana Burton MD MR ORDERABLES Final Re sult * MRI CERVICAL W WO CONTRAST (09/18/2007 2:11 PM CDT) Anatomical Region Laterality Modality Spine Other 09/18/2007 2:11 PM CDT Narrative 08/07/2012 9:13 AM CDT Final Exam, Report in Cerner. Exam: MRI - Cervical Spine w/ w/o Contrast Date/Time of Exam: Sep 18, 2007 2:11:00 PM History: NECK/ARM PAIN. Technique: Sagittal T1, sagittal T2, sagittal IR noncontrast sequences were performed. Axial T2* and axial T2 FSE sequences were performed noncontrast. Sagittal and axial T1 postgadolinium fat-sat sequence were performed. Contrast was administered by hand injection, Optimark 15 mL. Comparison: None. Findings: The sagittal noncontrast images show a bulging annulus at C3-C4. C5 and C6 both show reparative signal change on the IR sequence. There is a slight retropulsion of the posterior bodies at C5 and C6 along with thickening of the posterior longitudinal ligament. No subluxation of the vertebral bodies is noted. No locking or perching of the facets is evident. No abnormal signal from within the cord is present. The transaxial images show an annular bar at C3-C4. C4-C5 and C5-C6 show the thickening of the posterior longitudinal ligament and effacement of the cord and the canal. A small dilatation of the central canal is present at the C7-T1 level. No signs of associated mass is identified. The sagittal and axial T1 postcontrast sequences show enhancement in the vertebral marrow at C5 and C6. No enhancement in or around the syrinx is identified. Impression: 1. Changes of aging with narrowing of intervertebral disc spaces. 2. Active reparative change in the marrow at C5 and C6 consistent with disc degeneration. 3. Small syrinx present at the C7 level. - Dictated By: MD Kelly Josh JAW Procedure Note [facility] Ángel, Radiologist, - 08/07/2012 Final Exam, Report in Cerner. Exam: MRI - Cervical Spine w/ w/o Contrast Date/Time of Exam: Sep 18, 2007 2:11:00 PM History: NECK/ARM PAIN. Technique: Sagittal T1, sagittal T2, sagittal IR noncontrast sequenceswere performed. Axial T2* and axial T2 FSE sequences were performed noncontrast. Sagittal and axial P0vxalhiaxrorieu fat-sat sequence were performed. Contrast was administered by hand injection, Optimark 15mL. Comparison: None. Findings: The sagittal noncontrast images show a bulging annulus at C3-C4. C5 and C6both show reparative signal change on the IR sequence. There is a slight retropulsion of the posteriorbodies at C5 and C6 along with thickening of the posterior longitudinal ligament. No subluxation of thevertebral bodies is noted. No locking or perching of the facets is evident. No abnormal signal fromwithin the cord is present. The transaxial images show an annular bar at C3-C4. C4-C5 and C5-C6 show thethickening of the posterior longitudinal ligament and effacement of the cord and the canal. A smalldilatation of the central canal is present at the C7-T1 level. No signs of associated mass isidentified. The sagittal and axial T1 postcontrast sequences show enhancement in thevertebral marrow at C5 and C6. No enhancement in or around the syrinx is identified. Impression: 1. Changes of aging with narrowing of intervertebral disc spaces. 2. Active reparative change in the marrow at C5 and C6 consistent withdisc degeneration. 3. Small syrinx present at the C7 level. - Dictated By: MD Josh Mendoza us Ariana Burton MD MR ORDERABLES Final Re sult * MRI CERVICAL W WO CONTRAST (09/18/2007 2:11 PM CDT) Anatomical Region Laterality Modality Spine Other 09/18/2007 2:11 PM CDT Narrative 08/07/2012 9:13 AM CDT Final Exam, Report in Cerner. Procedure Note Bonnie Neal Radiologist, - 08/07/2012 Final Exam, Report in Cerner. us Ariana Burton MD MR ORDERABLES Final Re sult * MRI CERVICAL W WO CONTRAST (09/18/2007 2:11 PM CDT) Anatomical Region Laterality Modality Spine Other 09/18/2007 2:11 PM CDT Narrative 08/07/2012 9:13 AM CDT Final Exam, Report in Cerner. Procedure Note Bonnie Neal RadiologistMD - 08/07/2012 Final Exam, Report in Cerner. us Ariana Burton MD MR ORDERABLES Final Re sult * MRI CERVICAL W WO CONTRAST (09/18/2007 2:11 PM CDT) Anatomical Region Laterality Modality Spine Other 09/18/2007 2:11 PM CDT Narrative 09/19/2007 12:06 PM CDT Exam: MRI - Cervical Spine w/ w/o Contrast Date/Time of Exam: Sep 18, 2007 2:11:00 PM History: NECK/ARM PAIN. Technique: Sagittal T1, sagittal T2, sagittal IR noncontrast sequences were performed. Axial T2* and axial T2 FSE sequences were performed noncontrast. Sagittal and axial T1 postgadolinium fat-sat sequence were performed. Contrast was administered by hand injection, Optimark 15 mL. Comparison: None. Findings: The sagittal noncontrast images show a bulging annulus at C3-C4. C5 and C6 both show reparative signal change on the IR sequence. There is a slight retropulsion of the posterior bodies at C5 and C6 along with thickening of the posterior longitudinal ligament. No subluxation of the vertebral bodies is noted. No locking or perching of the facets is evident. No abnormal signal from within the cord is present. The transaxial images show an annular bar at C3-C4. C4-C5 and C5-C6 show the thickening of the posterior longitudinal ligament and effacement of the cord and the canal. A small dilatation of the central canal is present at the C7-T1 level. No signs of associated mass is identified. The sagittal and axial T1 postcontrast sequences show enhancement in the vertebral marrow at C5 and C6. No enhancement in or around the syrinx is identified. Impression: 1. Changes of aging with narrowing of intervertebral disc spaces. 2. Active reparative change in the marrow at C5 and C6 consistent with disc degeneration. 3. Small syrinx present at the C7 level. - Dictated By: MD Josh Mendoza Electronically Signed By: MD Josh MendozaMD Date Signed: 09/19/07 JAW Procedure Note Josh Mendoza A - 09/19/2007 Exam: MRI - Cervical Spine w/ w/o Contrast Date/Time of Exam: Sep 18, 2007 2:11:00 PM History: NECK/ARM PAIN. Technique: Sagittal T1, sagittal T2, sagittal IR noncontrast sequenceswere performed. Axial T2* and axial T2 FSE sequences were performed noncontrast. Sagittal and axial J3lkeaseezwjhyzz fat-sat sequence were performed. Contrast was administered by hand injection, Optimark 15mL. Comparison: None. Findings: The sagittal noncontrast images show a bulging annulus at C3-C4. C5 and C6both show reparative signal change on the IR sequence. There is a slight retropulsion of the posteriorbodies at C5 and C6 along with thickening of the posterior longitudinal ligament. No subluxation of thevertebral bodies is noted. No locking or perching of the facets is evident. No abnormal signal fromwithin the cord is present. The transaxial images show an annular bar at C3-C4. C4-C5 and C5-C6 show thethickening of the posterior longitudinal ligament and effacement of the cord and the canal. A smalldilatation of the central canal is present at the C7-T1 level. No signs of associated mass isidentified. The sagittal and axial T1 postcontrast sequences show enhancement in thevertebral marrow at C5 and C6. No enhancement in or around the syrinx is identified. Impression: 1. Changes of aging with narrowing of intervertebral disc spaces. 2. Active reparative change in the marrow at C5 and C6 consistent withdisc degeneration. 3. Small syrinx present at the C7 level. - Dictated By: MD Josh Mendoza Electronically Signed By: MD Josh MendozaMD Date Signed: 09/19/07 JAW us Historical Provider MR ORDERABLES Final Result documented in this encounter Visit Diagnoses Diagnosis Cervicalgia documented in this encounter Care Teams Molding Cutter Relationship Specialty Start Date End Date Guy Salazar DO [address] [address] PCP - General Internal Medicine 10/23/16 documented as of this encounter
--- OUTSIDE RECORDS SUMMARY | 2024-11-01 17:54 | XMS_ITS | Encounter Summary ---
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
--- OUTSIDE RECORDS SUMMARY | 2024-11-01 17:54 | XMS_ITS | Encounter Summary ---
Author Organization [facility] Address [address] [place] [address] Care Team Providers Care Trade Sales Assistant Name Role Phone Guy Salazar DO Primary Care Provide r Encounter Details Date Type Department Care Team (Late st Contact Info) Description 12/12/2000 Outpatient [facility] [address] [place] [address] Dewey Acosta MD NO ADDRESS ON FILE REFLEX SYMPATH DYSTRPHY LOWER LIMB (Primary Dx) Social History Tobacco Use Types Packs/Day Years Used Date Smoking Tobacco: Never Assessed Comments Unknown Sex and Gender Information Value Date Recorded Sex Assigned at Not on file 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
--- OUTSIDE RECORDS SUMMARY | 2024-11-01 17:54 | XMS_ITS | Clinical Summary ---
Author Organization [facility] Address [address] [place] [address] Care Team Providers Care Emergency Room Technician Name Role Phone Guy Salazar DO Primary Care Provide r Allergies Active Allergy Reactions Criticality Noted Date Comments Cephalexin Hives High 02/04/2009 Fluticasone Propion-Salmeterol Hives High 02/04 Hydrocodone-Acetaminophen Hives High 02/04/2009 Nitrofurantoin Monohyd/M-Cryst Hives High 02/04 Prednisone Hives High 02/04/2009 Medications lisinopril (PRINIVIL) 10 mg Oral tablet Take 10 mg by mouth daily at bedtime . Active metformin (GLUCOPHAGE) 1,000 mg Oral tablet Take 1,000 mg by mouth 2 times daily with meals. Active simvastatin (ZOCOR) 20 mg Oral tablet Take 20 mg by mouth Daily LATE. Active aspirin (OLIVIA) 325 mg Oral tablet Take 325 mg by mouth daily. Active alprazolam (XANAX) 0.5 mg Oral tablet Take 0.5 mg by mouth nightly as needed for Anxiety. Active escitalopram (LEXAPRO) 10 mg Oral tablet Take 10 mg by mouth daily at bedtime. Active nitroglycerin (NITROQUICK) 0.[address] 0.4 mg under tongue every 5 minutes as needed for Chest Pain. Active estradiol (ESTRACE) 0.01 % (0.1 mg/g) Vaginal CreaIndications:In complete bladder emptying,Unspecifi ed urinary incontinence Insert 2 Gram vaginally daily. 12 Gram 0 06/04/20 10 Active albuterol (PROVENTIL,VENTOLI N) 0.63 mg/3 mL Inhalation Nebu Take 0.63 mg by inhalation 1 time daily as needed. 01/05/20 10 Active clobetasol (TEMOVATE) 0.05 % Topical CreaIndications:Tere day sclerosus Apply to affected area 2 times daily. 1 Tube 1 07/27/19 11 Active INSULIN GLARGINE,HUM.REC.A NLOG (LANTUS SUBCUT) Inject 40 Units by subcutaneous injection daily at bedtime . Active NOVOLOG FLEXPEN 100 unit/mL pen syringe Inject 14 Units by subcutaneous injection 3 times daily with meals Units vary on how much Pt. Eats.. 01/19/20 16 Active lidocaine (LIDODERM) 5 % Adhesive Patch, Medicated Apply 1 Patch to affected area every 24 hours. 10 Patch 5 07/26/19 17 Active VICTOZA 3-ANTHONY 0.6 mg/0.1 mL (18 mg/3 mL) Inject 1.8 mg by subcutaneous injection daily before lunch . 06/17/19 17 Active zolpidem (AMBIEN) 5 mg tablet Take 2.5 mg by mouth 1 time daily as needed . 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 90 Tablet 1 04/07/19 18 Active traMADoL (ULTRAM) 50 mg tabletIndications: Diabetic polyneuropathy associated with diabetes mellitus due to underlying condition TAKE 1 TABLET(50 MG) BY MOUTH THREE TIMES DAILY NEEDED FOR PAIN 90 Tablet 5 02/15/19 21 Active Active Problems Problem Noted Date Diagnosed Date Type 2 diabetes mellitus with diabetic neuropath y 07/26/2017 Overview (07/26/2017): Changed to E11.[address] Burton. 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 Resolved Problems Problem Noted Date Diagnosed Date Resolved Date Neuropathy in diabetes 07/30/201206/23 Immunizations Immunization Administration Dates Next Due Pneumococcal conjugate, unspecified formulation 12/30/2012 Family History Relation Name Status Comments Father Mother Alive Social History Tobacco Use Types Packs/Day Years Used Date Smoking Tobacco: Every Day Cigarettes 1 45 Smokeless Tobacco: Never Tobacco Cessation:Ready to Q uit: Yes; Counseling Given: Yes Alcohol Use Standard Drinks/Week Comments No 0 (1 standard drink = 0.6 oz pur e alcohol) Comments No Sex and Gender Information Value Date Recorded Sex Assigned at Not on file 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 Gender Identity Not on file Sexual Orientation Not on file Occupation Industry Job Start Date Job End Date Not on file Not on file Not on file Not on file Not on file Not on file Not on file Not on file Last Filed Vital Signs Vital Sign Reading Time Taken Comments Blood Pressure 113/77 04/20/2020 2:40 PM CDT Pulse 60 04/20/2020 8:36 AM CDT Temperature 36.3 C (97.3 F) 04/20/2020 2:40 PM CDT Respiratory Rate 20 04/20/2020 2:40 PM CDT Oxygen Saturation 85% 04/20/2020 2:4 0 PM CDT pt did not bring home o2, she refuses to wear it Inhaled Oxygen Concentration - - Weight 68.9 kg (152 lb) 04/20/2020 8:36 AM CDT Height 157.5 cm (5' 2 ) 04/20/2020 8:36 AM CDT Body Mass Index 27.8 04/20/2020 8:36 AM CDT Plan of Treatment Health Maintenance Due Date Last Done Comments DIABETES ANNUAL FOOT EXAM 09/07/1965 DIABETES MICROALBUMIN ANNUAL SCREEN 09/07/1965 LDL CHOLESTEROL ANNUAL 09/07/1965 DTAP/TDAP/TD VACCINES (1 - Tdap) 09/07/1966 PNEUMOCOCCAL VACCINE 50+ YEA RS (1 of 2 - PCV) 09/07/1966 12/30/2012 ZOSTER VACCINE (1 of 2) 09/07/1997 OSTEOPOROSIS SCREENING 09/07/2012 DIABETES ANNUAL RETINAL EXAM 08/25/2016 08/26/2015, 11/19/2013 DIABETES HBA1C Q 6 MONTHS 05/17/20172016, 08/21/2016, 05/29/2016, Additional history exists RSV VACCINE (60+ or ) (1 - 1-dose 75+ series) 09/07/2022 INFLUENZA VACCINE (#1) 2024 COLORECTAL SCREENING Discontinued 08/15/2013 Colorectal Cancer Screening Discontinued FIT-DNA Q 3 years Discontinued FIT/FOBT Q 1 year Discontinued Flex Sig/CT Colonography Q 5 years Discontinued Medical Devices Implanted Type Area Tufter Operator Device Identifier Shelf Expiration Date Model / Serial / Lot Biological Implanted:Qty: 1 on 08/22/2010 at Other Left: Elbow [employer] 11/22/2012 [id number] / NA / [id number] Plate Implanted:Qty: 1 on 08/22/2010 at Plate Left: Elbow [employer] [id number] / NA / [id number] Screw Implanted:Qty: 1 on 08/22/2010 at Screw Left: Elbow [employer] [id number] / NA / [id number] Log [id number] - [place] [employer] Elbow Locking Plate Sys - 1 - Screw [address] 3.5x16mm [id number] Implanted:Qty: 1 on 08/22/2010 at Screw Left: Elbow [employer] [id number] / NA / [id number] Log [id number] - [employer] Elbow Locking Plate Sys - 1 - Screw St Loc 3.5x8mm [id number] Implanted:Qty: 1 on 08/22/2010 at Screw Left: Elbow [employer] [id number] / NA / [id number] Log [id number] - [place] [employer] Elbow Locking Plate Sys - 1 - Screw St Loc 3.5x14mm [id number] Implanted:Qty: 1 on 08/22/2010 at Screw Left: Elbow [employer] [id number] / NA / [id number] Log [id number] - [place] [employer] Elbow Locking Plate Sys - 1 - Screw St Loc 3.5x16mm [id number] Implanted:Qty: 3 on 08/22/2010 at Screw Left: Elbow [employer] [id number] / NA / [id number] Log [id number] - [place] [employer] Elbow Locking Plate Sys - 1 - Screw St Loc 3.5x18mm [id number] Implanted:Qty: 1 on 08/22/2010 at Screw Left: Elbow [employer] [id number] / NA / [id number] Screw Implanted:Qty: 1 on 08/22/2010 at Screw Left: Elbow [employer] [id number] / NA / [id number] Screw Implanted:Qty: 1 on 08/22/2010 at Screw Left: Elbow [employer] [id number] / NA / [id number] Explanted Type Area Tufter Operator Device Identifier Shelf Expiration Date Model / Serial / Lot Log [id number] - [place] [employer] Elbow Locking Plate Sys - 1 - Screw Edu[address] 3.5x24mm [id number] Explanted:Qty: 1 on 08/22/2010 at Screw Left: Elbow [employer] [id number] / NA / [id number] Explanted:Qty: 2 on 08/22/2010 at Wire Left: Elbow [employer] [id number] / NA / [id number] Screw Explanted:Qty: 10 on 08/18/2013 by Bairon Gorman MD at [facility] Left: Elbow [employer] Description:, 10 screws from nedra Plate Explanted:Qty: 1 on 08/18/2013 at [facility] Left: Elbow [employer] Description:nedra plate Procedures Procedure Name Priority Date/Time Associated Diagnosis Comments HEMOGLOBIN A1C Routine 10/04/2007 12:30 PM CDT from Last 3 Months or Most Recently Relevant to Health Maintenance Results * (ABNORMAL) HEMOGLOBIN A1C (10/04/2007 12:30 PM CDT) HEMOGLOBIN A1C 6.4(H) 4.0 - 6.0 %A1C [facility] Blood specimen (specimen) 10/04/2007 12:30 PM CDT 10/04/2007 12:30 PM CDT us Bairon Gorman MD CHEMISTRY ORDERABLES Final R esult INTERFACE SYSTEM Refer to clinic/hospital department [facility] CLIA# [id number] [address] [place] [address] from Last 3 Months or Most Recently Relevant to Health Maintenance Insurance MEDICAID [place] [facility] PL[facility] Advance Directives For more information, please contact: [phone] * Full Code (Latest Code Status on File) Date Activated Date Inactivated Comments 09/22/2016 11:32 AM 09/22/2016 10:58 PM * Full Code Date Activated Date Inactivated Comments 09/22/2016 8:31 AM 09/22/2016 11:32 AM * Full Code Date Activated Date Inactivated Comments 08/22/2010 9:13 AM 08/22/2010 5:14 PM * Full Code Date Activated Date Inactivated Comments 08/22/2010 7:23 AM 08/22/2010 9:13 AM * Full Code Date Activated Date Inactivated Comments 01/12/2010 7:39 AM 01/13/2010 3:07 AM Care Teams Emergency Room Technician Relationship Specialty Start Date End Date Guy Salazar DO [address] [facility] [address] [place] [address] PCP - General Internal Medicine 10/23/16
--- OUTSIDE RECORDS SUMMARY | 2024-11-01 17:54 | XMS_ITS | Encounter Summary ---
Author Organization [facility] Address [address] [place] [address] Care Team Providers Care Scientific Illustrator Name Role Phone Guy Salazar DO Primary Care Provide r Encounter Details Date Type Department Care Team (Late st Contact Info) Description 07/12/2020 Ancillary Orders [facility] [address] [place] [address] Rosendo Zacarias MD [address] [place] [address] Renal mass, left Social History Tobacco Use Types Packs/Day Years Used Date Smoking Tobacco: Every Day Cigarettes 1 45 Smokeless Tobacco: Never Alcohol Use Standard Drinks/Week Comments No 0 (1 standard drink = 0.6 oz pur e alcohol) Comments No Sex and Gender Information Value Date Recorded Sex Assigned at Not on file 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 No / Unsure 07/09/2020 9:34 AM CDT documented as of this encounter Plan of Treatment Not on file documented as of this encounter Visit Diagnoses Diagnosis Renal mass, left Unspecified disorder of kidney and ureter documented in this encounter Care Teams Scientific Illustrator Relationship Specialty Start Date End Date Guy Salazar DO [address] [address] PCP - General Internal Medicine 10/23/16 documented as of this encounter
--- NOTE | 2024-11-01 18:02 | XRR_ITS ---
PROCEDURE INFORMATION: Exam: XR Chest Exam date and time: 11/01/2024 6:18 PM Age: 79 years old Clinical indication: Other: AMS; Prior surgery; Surgery date: 6+ months; Surgery type: Cabg; Additional info: Sepsis; AMS TECHNIQUE: Imaging protocol: Radiologic exam of the chest. Views: 1 view. COMPARISON: CT chest w con* [id number] 07/23/2024 11:54 AM FINDINGS: Tubes, catheters and devices: Anterior chest surgery with sternal wires and mediastinal clips. Lungs: Left mid upper lung zone opacity suggestive of pneumonia. Pleural spaces: No pleural effusion. Heart/Mediastinum: Unremarkable. No cardiomegaly. Vasculature: Aortic calcifications and moderate aortic tortuosity. Bones/joints: Bilateral degenerative arthritis glenohumeral joints. XR/XR chest 1V portable [id number] IMPRESSION: Left mid upper lung zone opacity suggestive of pneumonia.
--- NOTE | 2024-11-01 18:02 | CTR_ITS ---
PROCEDURE INFORMATION: Exam: CT Head Without Contrast Exam date and time: 11/01/2024 6:32 PM Age: 79 years old Clinical indication: Altered mental status/memory loss; Confusion or disorientation; Additional info: AMS TECHNIQUE: Imaging protocol: Computed tomography of the head without contrast. Radiation optimization: All CT scans at this facility use at least one of these dose optimization techniques: automated exposure control; mA and/or kV adjustment per patient size (includes targeted exams where dose is matched to clinical indication); or iterative reconstruction. COMPARISON: CT head wo con* [id number] 09/08/2023 1:23 PM RADIATION DOSE METRICS: Total DLP (mGy-cm): 905.68 FINDINGS: Brain: Global cortical volume loss commensurate with the patient's age. No acute intracranial abnormality. No hemorrhage, mass effect, extra-axial collection or midline shift. Chronic microangiopathic ischemic changes. Cerebral ventricles: No ventriculomegaly. Paranasal sinuses: Visualized sinuses are unremarkable. No fluid levels. Mastoid air cells: Visualized mastoid air cells are well aerated. Orbital cavities: Cataract surgeries. Bones: Unremarkable. No acute fracture. Soft tissues: Unremarkable. Vasculature: Moderate calcifications carotid siphon. CT/CT head wo con* [id number] IMPRESSION: No acute intracranial abnormality.
[2024-11-01 18:17] LABS: Glucose Urine UA Trace (Normal); Nitrate Urine Positive (Negative); Specific Gravity, Urine 1.020 (1.005-1.030)
[2024-11-01 18:22] LABS: Add Urine Microscopic? YES
[2024-11-01 18:27] LABS: Hematocrit 40.0 % (36-47); Hemoglobin 12.80 g/dL (11.27-16.99); Mean Corpuscular HGB Conc 32.0 g/dL (30-55); Mean Corpuscular Hemoglobin 26.9 pg (27-33); Mean Corpuscular Volume 84.2 fl (85-98); Nucleated Red Blood Cells % 0.1 %; Platelet Count 224 10^3/cmm (157-399); Red Blood Count 4.75 10^6/uL (3.85-5.65); White Blood Count 25.66 10^3/uL (3.29-11.43)
[2024-11-01 18:30] LABS: ABG PCO2 34.3 mmHg (35-45); ABG PH Result 7.46 (7.35-7.45); Arterial Blood Gas Hematocrit 35.6 % (37-47); Blood Gas Allen Test Pos; Blood Gas Sample Type Arterial; HCO3 ABG 24.1 mmol/L (22-26); PO2 ABG 65.0 mmHg (80.0-100.0)
[2024-11-01 18:31] LABS: Blood Gas LPM 2.0 %; Blood Gas Operator Identificat MONRO; Blood Gas Sample Site Radial, left; PO2 FiO2 Ratio Arterial Blood 232
[2024-11-01 18:35] LABS: UA Slide Review UA Slide Review Perf
--- NOTE | 2024-11-01 18:36 | W.ED.AMS ---
HPI - Altered Mental Status General: Chief Complaint: Altered Mental Status Stated Complaint: AMS Time Seen by Provider: 11/01/24 18:00 History of Present Illness: Patient is a 79-year-old female who presents with altered mental status. [facility] with limited history available. The patient has not been coherent and is only able to state her name. Per report, she has a history of a pin in her hip with associated pain. There is mention of a possible urinary tract infection, though this is questioned by the examining provider. The patient is noted to be diabetic with a blood glucose of 200. She is on oxygen therapy. The patient denies cough, abdominal pain, or vomiting when directly questioned, though her ability to provide reliable history appears limited due to her altered mental status. Related Data Home Medications ?Medication ?Instructions ?Recorded ?Confirmed duloxetine 60 mg capsule,delayed 60 mg PO DAILY 06/20/19 11/01/24 release sprinkle atorvastatin 20 mg tablet 20 mg PO BEDTIME 07/16/23 11/01/24 duloxetine 30 mg capsule,delayed 30 mg PO DAILY 07/16/23 08/04/24 release acetaminophen 325 mg tablet 650 mg PO Q6H PRN pain/fever 08/03/23 11/01/24 (Tylenol) bisacodyl 10 mg rectal suppository 10 mg DC DAILY PRN Constipation 08/03/23 11/01/24 docusate sodium 100 mg capsule 100 mg PO DAILY 08/03/23 11/01/24 (Colace) ketoconazole 2 % shampoo 1 applic topical .2XWEEKLY PRN 08/03/23 11/01/24 lather magnesium hydroxide 400 mg/5 mL 30 ml PO DAILY PRN Constipation 08/03/23 11/01/24 oral suspension (Milk of Magnesia) sodium phosphates 19 gram-7 118 ml DC DAILY PRN Constipation 08/03/23 11/01/24 gram/118 mL enema (Fleet Enema) amino acids-protein hydrolysate 15 1 ea PO DAILY 09/05/23 11/01/24 gram-101 kcal/30 mL oral liquid hydrocortisone 1 % topical cream 1 applic topical QID PRN RASH/ITCH 09/05/23 08/04/24 lactobacillus combination no.4 3 3,000 mmu cells PO DAILY PRN WHILE 09/05/23 08/04/24 billion cell capsule (Probiotic) ON ANTIBIOTICS polyethylene glycol 3350 17 See Rx Instructions .Route .COMPLEX 09/05/23 11/01/24 gram/dose oral powder (Miralax) fluticasone furoate 100 1 inh inhalation DAILY 04/10/24 11/01/24 mcg-vilanterol 25 mcg/dose inhalation powder (Breo Ellipta) gabapentin 100 mg capsule 100 mg PO BID 04/10/24 11/01/24 loperamide 2 mg capsule (Imodium 2 mg PO DAILY 04/10/24 11/01/24 A-D) ondansetron HCl 4 mg tablet 4 mg PO .Q4-6H 04/10/24 11/01/24 tiotropium bromide 1.25 1 puff inhalation DAILY 04/10/24 11/01/24 mcg/actuation mist for inhalation (Spiriva Respimat) hydrocodone 5 mg-acetaminophen 325 1 tab PO Q4H PRN Pain 05/06/24 11/01/24 mg tablet tirzepatide 2.5 mg/0.5 mL 10 mg SUBCUT ONCE 05/28/24 11/01/24 subcutaneous pen injector (Malika) aspirin 325 mg tablet,delayed 325 mg PO DAILY 11/01/24 11/01/24 release insulin degludec 100 unit/mL (3 30 unit SUBCUT DAILY 11/01/24 11/01/24 mL) subcutaneous pen insulin degludec 100 unit/mL (3 80 unit SUBCUT BEDTIME 11/01/24 11/01/24 mL) subcutaneous pen (Tresiba FlexTouch U-100 insulin) insulin lispro 100 unit/mL 20 unit SUBCUT TIDWM 11/01/24 11/01/24 subcutaneous pen multivitamin 1 tab PO DAILY 11/01/24 11/01/24 Previous Rx's ?Medication ?Instructions ?Recorded furosemide 40 mg tablet 40 mg PO DAILY PRN Swelling #2 tabs 07/19/23 pantoprazole 40 mg tablet,delayed 40 mg PO BID 30 days #60 tabs 09/14/23 release tramadol 50 mg tablet 50 mg PO Q8H PRN pain #30 tabs 03/22/24 insulin glargine 100 unit/mL (3 45 unit (0.45 mL) SUBCUT QPM #15 mL 03/10/25 mL) subcutaneous pen (Lantus Solostar U-100 Insulin) insulin lispro 100 unit/mL See Rx Instructions .Route 04/14/24 subcutaneous pen (Humalog KwikPen .COMPLEX PRN blood sugar #15 mL (U-100) Insulin) sennosides 8.6 mg-docusate sodium 1 tab PO DAILY #30 tabs 04/14/24 50 mg tablet (Stool Softener-Laxative) Allergies Allergy/AdvReac Type Severity Reaction Status Date / Time acetaminophen (From Vicodin) Allergy ADR-Confusi Verified 08/04/24 14:57 on cephalexin Allergy ALGY-Hives Verified 08/04/24 14:57 fluticasone (From Advair Allergy Unknown Verified 08/04/24 14:57 Diskus) hydrocodone (From Vicodin) Allergy ADR-Confusi Verified 08/04/24 14:57 on nitrofurantoin (From Allergy ALGY-Hives Verified 08/04/24 14:57 Macrobid) salmeterol (From Advair Allergy Unknown Verified 08/04/24 14:57 Diskus) PFSH ED PFSH: Medical History Hypertension Obstructive sleep apnea intolerant of cpap Coronary artery disease CKD (chronic kidney disease) stage 3, GFR 30-59 ml/min Pneumonia Stroke Coffee ground emesis 2021 Nephrolithiasis Peripheral neuropathy Depression Diabetes mellitus type 2 in obese COPD (chronic obstructive pulmonary disease) Chronically uses 2 L per nasal cannula Surgical History History of ankle surgery History of cataract surgery History of bladder surgery History of carpal tunnel surgery History of shoulder surgery History of appendectomy Hx of CABG 2004 Family History Other Dementia Social History Smoking and tobacco/nicotine status: never used tobacco/nicotine Quit status (tobacco/nicotine): has quit using Year quit tobacco: 12/2022 Alcohol intake: never Substance/Drug Use: never Physical Exam Const: EXAM LIMITATIONS: altered mental status GENERAL APPEARANCE: cooperative, ill appearing and frail appearing ORIENTATION/CONSCIOUSNESS: Yes awake and Yes oriented to person; not oriented to place and not oriented to time HENMT: COMMON NORMALS: normocephalic, atraumatic and Normal external nose present HEAD & SCALP: normocephalic and atraumatic FACE & SINUS: normal facial exam and face symmetric NOSE: Normal external nose present and Normal nares present Eye: COMMON NORMALS: Equal, round and reactive pupils present and EOMs intact bilaterally PUPIL: Yes Equal, round and reactive pupils present Neck/C-Spine: COMMON NORMALS: supple GENERAL: Yes trachea midline Resp: COMMON NORMALS: clear to auscultation bilaterally EFFORT & INSPECTION: Yes tachypneic AUSCULTATION: clear to auscultation bilaterally Cardio: COMMON NORMALS: regular rhythm RATE: bradycardic RHYTHM: regular rhythm GI: COMMON NORMALS: Soft to palpation INSPECTION: Yes abdominal distension PALPATION: Yes Soft to palpation, No Tenderness to palpation present (GI) and No Guarding due to palpation present (GI) Neuro: SENSORIUM/ORIENTATION: Yes oriented to person, No oriented to place and No oriented to time Urinary Catheter Management: Smith: Cath Placed During This Visit: yes Urinary Catheter Date of Insertion: 11/01/24 Course Vital Signs: Vital signs: Vital Signs Temperature 98.4 F 11/01/24 22:16 Pulse Rate 102 H 11/01/24 22:16 Respiratory Rate 21 H 11/01/24 22:16 Blood Pressure 98/48 11/01/24 22:16 Pulse Oximetry 97 11/01/24 22:16 Oxygen Delivery Me thod Nasal Cannula 11/01/24 22:16 Oxygen Flow Rate 2 11/01/24 20:36 MDM - Altered Mental Status Medical Decision Making Smith placed on arrival. She is tachycardic. She is febrile. Sepsis bolus ordered. Blood cultures obtained. Will cover with antibiotics for now. Urinalysis does show nitrates and 51-100 whites. Chest x-ray reveals left upper lobe infiltrate that is significant. White blood cell count is 2 6. Creatinine is 1.4. She is not hypotensive. She is mildly tachycardic. She is allergic to cephalexin. She received Levaquin 750. She will be admitted. Hospitalist is seeing the patient. Lab Data 11/01/24 18:15 11/01/24 18:15 Radiology Impressions Chest X-Ray 11/01/24 18:02 IMPRESSION: Left mid upper lung zone opacity suggestive of pneumonia. Head CT 11/01/24 18:02 IMPRESSION: No acute intracranial abnormality. Laboratory Results WBC 25.66 10^3/uL (3.29-11.43) H 11/01/24 18:15 RBC 4.75 10^6/uL (3.85-5.65) 11/01/24 18:15 Hgb 12.80 g/dL (11.27-16.99) 11/01/24 18:15 Hct 40.0 % (36-47) 11/01/24 18:15 MCV 84.2 fl (85-98) L 11/01/24 18:15 MCH 26.9 pg (27-33) L 11/01/24 18:15 MCHC 32.0 g/dL (30-55) 11/01/24 18:15 RDW 16.0 % (12.1-15.1) H 11/01/24 18:15 Plt Count 224 10^3/cmm (157-399) 11/01/24 18:15 MPV 8.9 fL (7.4-10.4) 11/01/24 18:15 Neut % (Auto) 82.9 % 11/01/24 18:15 Lymph % (Auto) 5.6 % 11/01/24 18:15 Posey % (Auto) 7.3 % 11/01/24 18:15 Eos % (Auto) 0.5 % 11/01/24 18:15 Baso % (Auto) 0.5 % 11/01/24 18:15 Neut # (Auto) 21.26 10^3/uL (1.8-7.7) H 11/01/24 18:15 Lymph # (Auto) 1.4 10^3/uL (0.8-4.8) 11/01/24 18:15 Posey # (Auto) 1.9 10^3/uL (0.2-0.9) H 11/01/24 18:15 Eos # (Auto) 0.1 10^3/uL (0.0-0.8) 11/01/24 18:15 Baso # (Auto) 0.1 10^3/uL (0.0-0.1) 11/01/24 18:15 Nucleated RBC % (auto) 0.1 % 11/01/24 18:15 Nucleated RBCs # 0.0 /100WBC 11/01/24 18:15 Specimen Type Arterial 11/01/24 18:18 Sample Site Radial, left 11/01/24 18:18 ABG pH 7.46 (7.35-7.45) H 11/01/24 18:18 ABG pCO2 34.3 mmHg (35-45) L 11/01/24 18:18 ABG pO2 65.0 mmHg (80.0-100.0) L 11/01/24 18:18 ABG PO2/FiO2 Ratio 232 11/01/24 18:18 ABG HCO3 24.1 mmol/L (22-26) 11/01/24 18:18 ABG Base Excess 0.5 mmol/L (-2.0-2.0) 11/01/24 18:18 David Test Pos 11/01/24 18:18 Hematocrit 35.6 % (37-47) L 11/01/24 18:18 O2 Delivery Device Nc 11/01/24 18:18 O2 Liters/Min 2.0 % 11/01/24 18:18 FiO2 28.0 % 11/01/24 18:18 Filter Tip Inspector ID Monro 11/01/24 18:18 Sodium 134 mmol/L (136-145) L 11/01/24 18:15 Potassium 4.7 mmol/L (3.5-5.1) 11/01/24 18:15 Chloride 96 mmol/L (98-107) L 11/01/24 18:15 Carbon Dioxide 23 mmol/L (22-29) 11/01/24 18:15 Anion Gap 19.7 (5-19) H 11/01/24 18:15 BUN 26 mg/dL (8-23) H 11/01/24 18:15 Creatinine 1.4 mg/dL (0.5-0.9) H 11/01/24 18:15 GFR Calculation Not Reportable 11/01/24 18:15 Glucose 186 mg/dL (65-115) H 11/01/24 18:15 Calculated Osmolality 288 mOsm/kg (285-295) 11/01/24 18:15 Lactic Acid 2.1 mmol/L (0.5-2.2) 11/01/24 18:15 Calcium 9.1 mg/dL (8.5-10.5) 11/01/24 18:15 Total Bilirubin 1.0 mg/dL (0.15-1.2) 11/01/24 18:15 AST 29 U/L (0-32) 11/01/24 18:15 ALT 43 U/L (0-33) H 11/01/24 18:15 Alkaline Phosphatase 145 U/L (35-105) H 11/01/24 18:15 C-Reactive Protein 301.4 mg/L (0.0-4.9) H 11/01/24 18:15 Total Protein 8.0 g/dL (6.6-8.7) 11/01/24 18:15 Albumin 3.5 g/dL (3.5-5.2) 11/01/24 18:15 Globulin 4.5 g/dL (1.3-4.6) 11/01/24 18:15 Procalcitonin 0.67 ng/mL (0-0.5) H 11/01/24 18:15 Urine Color Yellow (Yellow) 11/01/24 18:07 Urine Appearance Cloudy (CLEAR) A 11/01/24 18:07 Urine pH 5.5 (5-7) 11/01/24 18:07 Ur Specific Park 1.020 (1.005-1.030) 11/01/24 18:07 Urine Protein 2+ (Negative) A 11/01/24 18:07 Urine Glucose (UA) Trace (Normal) H 11/01/24 18:07 Urine Ketones Trace (Negative) 11/01/24 18:07 Urine Blood 2+ (Negative) A 11/01/24 18:07 Urine Nitrate Positive (Negative) A 11/01/24 18:07 Urine Bilirubin Negative (Negative) 11/01/24 18:07 Urine Urobilinogen 1.0 mg/dL (Negative) 11/01/24 18:07 Ur Leukocyte Esterase 2+ (Negative) A 11/01/24 18:07 Urine RBC 3-5 /hpf (0-2) 11/01/24 18:07 Urine WBC 51-100 /hpf (0-5) H 11/01/24 18:07 Ur Squamous Epith Cells 0-5 /hpf (0-5) 11/01/24 18:07 Amorphous Sediment Not Reportable 11/01/24 18:07 Urine Bacteria 2+ /hpf (NONE) H 11/01/24 18:07 Hyaline Casts 9.91 /lpf 11/01/24 18:07 Influenza A (PCR) Negative (Negative) 11/01/24 19:18 Influenza Type B (PCR) Negative (Negative) 11/01/24 19:18 RSV (PCR) Negative (Negative) 11/01/24 19:18 SARS-CoV-2 (PCR) Negative (Negative) 11/01/24 19:18 All radiology interpretation(s) finalized by discharge Critical Care Time Critical Care Time: Critical Care Time: Yes Total Critical Care Time: 35 Attestation: This case had a high probability of a clinically significant, sudden, or life threatening deterioration of this patient's condition which required my full and direct attention, intervention and personal management. Time is independent of any procedures performed Discharge Plan Discharge Patient Disposition: Admitted As Inpatient Admit Provider: Gia Sánchez Clinical Impression: Sepsis secondary to UTI, Pneumonia, Altered mental status Condition: Stable Coding Level of Care Code ED Physiological Chemist for Jr Elmore
[2024-11-01 18:47] LABS: Alanine Aminotransferase 43 U/L (0-33); Albumin Level 3.5 g/dL (3.5-5.2); Alkaline Phosphatase 145 U/L (35-105); Blood Urea Nitrogen 26 mg/dL (8-23); Calcium 9.1 mg/dL (8.5-10.5); Carbon Dioxide 23 mmol/L (22-29); Chloride 96 mmol/L (98-107); Creatinine Clr Calc Pharmacy 32.3174; Globulin 4.5 g/dL (1.3-4.6); Glucose 186 mg/dL (65-115); Osmolality Calculated 288 mOsm/kg (285-295); Sodium 134 mmol/L (136-145); Total Protein 8.0 g/dL (6.6-8.7)
[2024-11-01 18:48] LABS: Lactic Sepsis W/Reflex 2.1 mmol/L (0.5-2.2)
[2024-11-01 18:54] LABS: Procalcitonin 0.67 ng/mL (0-0.5)
[2024-11-01 18:59] LABS: Anion Gap 19.7 (5-19); Aspartate Amino Transferase 29 U/L (0-32); Potassium 4.7 mmol/L (3.5-5.1)
[2024-11-01 19:12] LABS: Reflex Lactate Order REFLEX LACTIC ORDERD
[2024-11-01] MEDS: levofloxacin-dextrose 5 % 750 MG/150 ML PREMIX 100 MG IV ×2 (19:14→23:21)
[2024-11-01 20:36] VITALS: BP 115/30; PULSE 104; RESP 20; O2SAT 97
--- NOTE | 2024-11-01 20:58 | PM.HP ---
Providers/Chief Complaint Admitting Physician: NOREEN SÁNCHEZ --DO--- patient seen and admitted before 12 midnight Primary Care Provider: Alem Auguste Chief Complaint: AMS History of Present Illness Deyanira Gonsales is a 79 year old female, in half-way resident who had presented to the emergency room because of febrile illness. Workup here at the emergency room were significant for a temperature of 101.4 ?F and at the half-way patient had a temp Tmax of 102 ?F today. Further evaluation showed the patient had left lower lobe dense pneumonia a radiographic finding and also urinalysis significant for UTI. Patient is confused at baseline but more confused today than ever. Son and daughter at the bedside and able to give me history as to what had been going on. Patient also had a fractured hip earlier this year in April and it could not be fixed because of problem with anything aligning for them to pin the fracture. Prior to that patient will walk with a walker but since April to this day patient had not been able to ambulate because of fractured hip that is causing so much pain. Workup were significant for a white count of 25,000, inflammatory markers were elevated with a C-reactive protein of 300, procalcitonin slightly up lactic acid pending Patient is allergic to penicillin and could not have ceftriaxone emergency room attending had given patient Levaquin for the pneumonia and also that will work for the UTI. Patient is pretty vocal can talk I will ask any question that she had written out from any conversation. She is diabetic with neuropathy. Review of Systems Narrative: System review upon 10 organ reviewed we are significantly for respiratory system disorder and system disorder otherwise unremarkable however patient does have ambulatory disorder due to musculoskeletal problem status post a hip fracture earlier this year. Medications/Allergies Home Medications ?Medication ?Instructions ?Recorded ?Confirmed ?Last Taken ?Type duloxetine 60 mg capsule,delayed 60 mg PO DAILY 06/20/19 08/04/24 04/09/24 History release sprinkle atorvastatin 20 mg tablet 20 mg PO BEDTIME 07/16/23 08/04/24 04/09/24 History duloxetine 30 mg capsule,delayed 30 mg PO DAILY 07/16/23 08/04/24 04/09/24 History release furosemide 40 mg tablet 40 mg PO DAILY PRN Swelling #2 tabs 07/19/23 08/04/24 07/16/23 Rx acetaminophen 325 mg tablet 650 mg PO Q6H PRN pain/fever 08/03/23 08/04/24 04/09/24 History (Tylenol) bisacodyl 10 mg rectal suppository 10 mg OH DAILY PRN Constipation 08/03/23 08/04/24 Unknown History docusate sodium 100 mg capsule 100 mg PO DAILY 08/03/23 08/04/24 04/09/24 History (Colace) ketoconazole 2 % shampoo 1 applic topical .2XWEEKLY PRN 08/03/23 08/04/24 Unknown History lather magnesium hydroxide 400 mg/5 mL 30 ml PO DAILY PRN Constipation 08/03/23 08/04/24 Unknown History oral suspension (Milk of Magnesia) sodium phosphates 19 gram-7 118 ml OH DAILY PRN Constipation 08/03/23 08/04/24 04/09/24 History gram/118 mL enema (Fleet Enema) amino acids-protein hydrolysate 15 1 ea PO DAILY 09/05/23 08/04/24 04/09/24 History gram-101 kcal/30 mL oral liquid hydrocortisone 1 % topical cream 1 applic topical QID PRN RASH/ITCH 09/05/23 08/04/24 Unknown History lactobacillus combination no.4 3 3,000 mmu cells PO DAILY PRN WHILE 09/05/23 08/04/24 04/09/24 History billion cell capsule (Probiotic) ON ANTIBIOTICS polyethylene glycol 3350 17 See Rx Instructions .Route .COMPLEX 09/05/23 08/04/24 04/09/24 History gram/dose oral powder (Miralax) pantoprazole 40 mg tablet,delayed 40 mg PO BID 30 days #60 tabs 09/14/23 08/04/24 04/09/24 Rx release tramadol 50 mg tablet 50 mg PO Q8H PRN pain #30 tabs 03/22/24 08/04/24 Unknown Rx fluticasone furoate 100 1 inh inhalation DAILY 04/10/24 08/04/24 04/09/24 History mcg-vilanterol 25 mcg/dose inhalation powder (Breo Ellipta) gabapentin 100 mg capsule 100 mg PO BID 04/10/24 08/04/24 04/09/24 History loperamide 2 mg capsule (Imodium 2 mg PO DAILY 04/10/24 08/04/24 Unknown History A-D) ondansetron HCl 4 mg tablet 4 mg PO .Q4-6H 04/10/24 08/04/24 Unknown History tiotropium bromide 1.25 1 puff inhalation DAILY 04/10/24 08/04/24 Unknown History mcg/actuation mist for inhalation (Spiriva Respimat) insulin glargine 100 unit/mL (3 45 unit (0.45 mL) SUBCUT QPM #15 mL 04/14/24 08/04/24 04/08/24 Rx mL) subcutaneous pen (Lantus Solostar U-100 Insulin) insulin lispro 100 unit/mL See Rx Instructions .Route 04/14/24 08/04/24 04/09/24 Rx subcutaneous pen (Humalog KwikPen .COMPLEX PRN blood sugar #15 mL (U-100) Insulin) sennosides 8.6 mg-docusate sodium 1 tab PO DAILY #30 tabs 04/14/24 08/04/24 Unknown Rx 50 mg tablet (Stool Softener-Laxative) hydrocodone 5 mg-acetaminophen 325 tab PO 05/06/24 08/04/24 Unknown History mg tablet tirzepatide 2.5 mg/0.5 mL mg SUBCUT 05/28/24 08/04/24 Unknown History subcutaneous pen injector (Mounjaro) Allergies Allergy/AdvReac Type Severity Reaction Status Date / Time acetaminophen (From Vicodin) Allergy ADR-Confusi Verified 08/04/24 14:57 on cephalexin Allergy ALGY-Hives Verified 08/04/24 14:57 fluticasone (From Advair Allergy Unknown Verified 08/04/24 14:57 Diskus) hydrocodone (From Vicodin) Allergy ADR-Confusi Verified 08/04/24 14:57 on nitrofurantoin (From Allergy ALGY-Hives Verified 08/04/24 14:57 Macrobid) salmeterol (From Advair Allergy Unknown Verified 08/04/24 14:57 Diskus) PFSH Acute PFSH: Medical History Hypertension Obstructive sleep apnea intolerant of cpap Coronary artery disease CKD (chronic kidney disease) stage 3, GFR 30-59 ml/min Pneumonia Stroke Coffee ground emesis 2021 Nephrolithiasis Peripheral neuropathy Depression Diabetes mellitus type 2 in obese COPD (chronic obstructive pulmonary disease) Chronically uses 2 L per nasal cannula Surgical History History of ankle surgery History of cataract surgery History of bladder surgery History of carpal tunnel surgery History of shoulder surgery History of appendectomy Hx of CABG 2004 Family History Other Dementia Social History Smoking and tobacco/nicotine status: never used tobacco/nicotine Quit status (tobacco/nicotine): has quit using Year quit tobacco: 12/2022 Alcohol intake: never Substance/Drug Use: never Vitals/I&O/Wt Last Vital Signs Temp 101.4 F H 11/01/24 17:51 Pulse 104 H 11/01/24 20:36 Resp 20 H 11/01/24 20:36 BP 115/30 11/01/24 20:36 Pulse Ox 97 11/01/24 20:36 O2 Del Method Nasal Cannula 11/01/24 20:36 O2 Flow Rate 2 11/01/24 20:36 Weight last 48 hrs Weight 73.482 kg Physical Exam Narrative: Generally patient seemed confused but able to answer few questions patient knows that she is in the hospital to get better. HEENT normocephalic/atraumatic neck neck is supple cardiovascular heart rate is regular lungs are pretty much clear abdomen soft nontender nondistended unremarkable extremities are intact no edema has good pulses neurology has no focality lab studies lab studies reviewed and noted. Urinary Catheter Management: Smith: Cath Placed During This Visit: yes Urinary Catheter Date of Insertion: 11/01/24 Data 11/01/24 18:15 11/01/24 18:15 Micro: Microbiology 11/01/24 18:20 Blood Culture - Preliminary Blood SPECIMEN COLLECTED 11/01/24 18:15 Blood Culture - Preliminary Blood SPECIMEN COLLECTED A&P Assessment and plan 1. Left lower lobe pneumonia: 2. Sepsis secondary to UTI: 3. Acute renal failure: 4. Dehydration: 5. Metabolic encephalopathy: 6. Leukocytosis: 7. Diabetes type 2: Plan: #1 Left lower lobe pneumonia - Admit to general medical floor with telemetry because of a compounded encephalopathy - IV hydration - IV antibiotics initiated with Levaquin as patient is allergic to penicillin - Nebulizing treatment - Keep pulse oximetry up in the mid 90s #2 UTI with sepsis - Patient with encephalopathy secondary to urinary tract infection compounded with pneumonia - Continue gentle hydration - Continue antibiotics - Follow up with cultures of blood and urine and optimize accordingly #3 Acute renal failure - This is secondary to infection and dehydration - Continue gentle hydration and antibiotics at this time - Monitor renal function - Keep all medication renal friendly - Dose of Levaquin is further higher than patient renal function at this time but this will be optimized because this is acute #4 Dehydration - Continue gentle hydration with normal saline at this time #5 Metabolic encephalopathy because of acute illness - Patient is with febrile illness with much leukocytosis at 25,000 pneumonia and UTI - Continue with antibiotics and gentle hydration - Feed patient once patient is able to and optimize glycemic index - Must continue to monitor #6 Diabetes type 2 - Will continue with sliding scale at this time I will follow through with scheduled insulin as clinical condition permits #7 GI and DVT prophylaxis in place PDMP PDMP Reviewed: Last Reviewed 11/01/24 21:35 by Noreen Sánchez MD Attestations Medical Necessity Statement*: Patient is with multiple and acute medical problem significant for UTI with sepsis, metabolic encephalopathy secondary to infection, febrile illness Tmax of 102, left lower lobe pneumonia patient meets inpatient criteria and will need at least 2 midnights to optimize care Coding Level of Care Code 94610 Diagnoses Left lower lobe pneumonia J18.9 Sepsis secondary to UTI A41.9; N39.0 Acute renal failure N17.9 Dehydration E86.0 Metabolic encephalopathy G93.41 Leukocytosis D72.829 Diabetes type 2 E11.9 Time Spent (min) 60
[2024-11-01 22:02] LABS: Lactic Acid level (Lactate) 1.8 mmol/L (0.5-2.2)
[2024-11-01 22:03] VITALS: BP 94/62; PULSE 87; RESP 16; O2SAT 96
[2024-11-01 22:15] LABS: Respiratory Syncytial Virus Ce NEGATIVE (Negative); SARS-CoV-2 PCR NEGATIVE (Negative)
[2024-11-01 22:16] VITALS: BP 98/48; PULSE 102; PULSE 99; RESP 21; TEMP 36.9; O2SAT 97; BMI 30.7
[2024-11-01] MEDS: pantoprazole 40 mg SDV IVP (23:22)
[2024-11-01] MEDS: heparin 5,000 unit/mL INJ 1 mL 5000 UNIT SUBCUT (23:22)
[2024-11-02] VITALS (12 sets, daily range): BP systolic 99–111; BP diastolic 52–70; PULSE 53–99; RESP 16–20; TEMP 36.4–37.3; O2SAT 91–98
--- NOTE | 2024-11-02 09:02 | PHA.VACGOAL ---
Vancomycin Goal - Goal Vancomycin Goal:: 15-20 mg/L Vancomycin Indication:: Other (SEPSIS) - Therapy Current therapy:: Meropenem Day of therpy:: Day []of [] . Actual body weight (kg): 173 lb 4.8 oz - Data Labs: WBC 25.66 10^3/uL (3.29-11.43) H 11/01/24 18:15 RBC 4.75 10^6/uL (3.85-5.65) 11/01/24 18:15 Hgb 12.80 g/dL (11.27-16.99) 11/01/24 18:15 Hct 40.0 % (36-47) 11/01/24 18:15 MCV 84.2 fl (85-98) L 11/01/24 18:15 MCH 26.9 pg (27-33) L 11/01/24 18:15 MCHC 32.0 g/dL (30-55) 11/01/24 18:15 RDW 16.0 % (12.1-15.1) H 11/01/24 18:15 Sodium 134 mmol/L (136-145) L 11/01/24 18:15 Potassium 4.7 mmol/L (3.5-5.1) 11/01/24 18:15 Chloride 96 mmol/L (98-107) L 11/01/24 18:15 Carbon Dioxide 23 mmol/L (22-29) 11/01/24 18:15 Anion Gap 19.7 (5-19) H 11/01/24 18:15 BUN 26 mg/dL (8-23) H 11/01/24 18:15 Creatinine 1.4 mg/dL (0.5-0.9) H 11/01/24 18:15 GFR Calculation Not Reportable 11/01/24 18:15 Last dialysis session:: N/A Treatment plan:: new consult Regimen:: ORDERED 2000 MG LOADING DOSE, FOLLOWED BY 1000 MG Q24H MAINTENANCE DOSE PER PROTOCOL. PATIENT HAS DECREASED RENAL FUNCTION AT CRCL OF 32.3 ML/MIN. Follow up:: WILL CONTINUE TO MONITOR PATIENT DAILY AND PLAN TO OBTAIN TROUGH PRIOR TO 4TH DOSE.
[2024-11-02] MEDS: heparin 5,000 unit/mL INJ 1 mL 5000 UNIT SUBCUT ×2 (09:49→22:06)
--- NOTE | 2024-11-02 13:08 | P.PN_ITS ---
Subjective 2 Subjective: Patient was seen this morning, she is alert to person, to place, not to time, denies any chest pain, does report shortness of breath, does have wheezing on examination, denies any abdominal pain, no diarrhea, does complain of left flank pain Vitals/I&O/Wt Last Vital Signs Temp 98.6 F 11/02/24 11:20 Pulse 88 11/02/24 11:28 Resp 17 11/02/24 11:28 BP 100/63 11/02/24 11:20 Pulse Ox 97 11/02/24 11:28 O2 Del Method Nasal Cannula 11/02/24 11:28 O2 Flow Rate 2 11/02/24 11:28 11/01/24 11/02/24 11/02/24 22:59 06:59 14:59 Intake Total 2354.46 / 2354.46 150 / 2504.46 1240 / 1240 Output Total 850 / 850 Balance 2354.46 / 2354.46 -700 / 1654.46 1240 / 1240 Weight last 48 hrs Weight 78.608 kg Weight 78.67 kg Weight 73.482 kg Physical Exam 2 Const: COMMON NORMALS: no acute distress ORIENTATION/CONSCIOUSNESS: Yes awake, Yes oriented to person and Yes oriented to place; not oriented to time Eye: COMMON NORMALS: Equal, round and reactive pupils present PUPIL: Yes Equal, round and reactive pupils present Resp: COMMON NORMALS: normal respiratory effort, No retractions and No use of accessory muscles AUSCULTATION: crackles and wheezes Cardio: COMMON NORMALS: regular rate, regular rhythm, S1 normal heart sound present and S2 normal heart sound present RATE: regular rate RHYTHM: r egular rhythm HEART SOUNDS: S1 normal heart sound present and S2 normal heart sound present GI: COMMON NORMALS: Normal to inspection, nondistended, normoactive bowel sounds present and non-tender : OTHER: No CVA tenderness Extremity: COMMON NORMALS: no pedal edema Neuro: SENSORIUM/ORIENTATION: Yes oriented to person, Yes oriented to place and No oriented to time Psych: COMMON NORMALS: mental status grossly normal Urinary Catheter Management: Smith: Cath Placed During This Visit: yes Reason for Continuing Indwelling Catheter: Other Urinary Catheter Date of Insertion: 11/01/24 Data 11/01/24 18:15 11/01/24 18:15 Micro: Microbiology 11/01/24 18:07 Urine Culture - Preliminary Urine,Clean Catch Gram Negative Rods 11/01/24 18:20 Blood Culture - Preliminary Blood SPECIMEN COLLECTED 11/01/24 18:15 Blood Culture - Preliminary Blood SPECIMEN COLLECTED A&P Assessment and plan 1. Left lower lobe pneumonia: 2. Sepsis secondary to UTI: 3. Acute renal failure: 4. Dehydration: 5. Metabolic encephalopathy: 6. Leukocytosis: 7. Diabetes type 2: 8. Sepsis: Plan: #1 Left lower lobe pneumonia - Oxygen therapy -Vancomycin -Meropenem - DuoNeb #2 UTI with sepsis - Continue meropenem - Renal ultrasound #3Acute renal failure - Secondary to UTI from sepsis - De-escalate fluid therapy #4 Sepsis secondary to UTI, pneumonia #5 Metabolic encephalopathy secondary to UTI, sepsis, pneumonia - Neurochecks, monitor mentation #6 Diabetes type 2 - Low-dose insulin sliding scale #7 GI and DVT prophylaxis in place PDMP PDMP Reviewed: Not Reviewed Attestations 2 Medical Necessity Statement*: Patient requires hospitalization for left lower lobe pneumonia, sepsis, UTI, TAVO Diagnoses Left lower lobe pneumonia J18.9 Sepsis secondary to UTI A41.9; N39.0 Acute renal failure N17.9 Dehydration E86.0 Metabolic encephalopathy G93.41 Leukocytosis D72.829 Diabetes type 2 E11.9 Sepsis A41.9 Sepsis Event Note Evaluation Current stage of sepsis: sepsis Possible source: genitourinary Focused Exam Vital Signs Temp Pulse Resp BP Pulse Ox O2 Del Method O2 Flow Rate 11/02/24 11:28 88 17 97 Nasal Cannula 2 11/02/24 11:20 98.6 F 86 18 100/63 98 Nasal Cannula 2 11/02/24 07:48 81 18 98 Nasal Cannula 2 11/02/24 07:25 99.2 F 88 19 H 111/52 96 Nasal Cannula 2 11/02/24 05:26 89 11/02/24 04:00 98.8 F 53 L 19 H 105/70 94 Nasal Cannula Peripheral pulse strength: 2+ Slightly Diminished Peripheral pulse location: Radial Skin exam: pale Date exam was performed: 11/02/24 Time exam was performed: 13:13 Problem List 1. Left lower lobe pneumonia: Status: Acute 2. Sepsis secondary to UTI: Status: Acute 3. Acute renal failure: Status: Acute 4. Dehydration: Status: Acute 5. Metabolic encephalopathy: Status: Acute 6. Leukocytosis: Status: Acute 7. Diabetes type 2: Status: Acute
--- NOTE | 2024-11-02 13:08 | USR_ITS ---
PROCEDURE INFORMATION: Exam: US Retroperitoneal, Complete, Kidneys and Bladder Exam date and time: 11/02/2024 4:06 PM Age: 79 years old Clinical indication: Condition or disease; Other: Dru TECHNIQUE: Imaging protocol: Real-time ultrasound of the retroperitoneum with image documentation. Complete exam focused on the bilateral kidneys and urinary bladder. Total images: 752 COMPARISON: 1. US renal BI* [id number] 07/17/2023 12:52 PM 2. US abdomen limited [id number] 11/30/2020 8:58 AM FINDINGS: Limitations: Quality of examination is limited by large patient body habitus. Right kidney: Measures 9 point cm in longitudinal length. No hydronephrosis, calculus or solid mass. Left kidney: Left kidney measures 5.5 cm longitudinal length, demonstrates markedly thin and lobulated renal cortex compatible with chronic left renal atrophy of etiology unknown. Urinary bladder: The bladder is decompressed by a Smith catheter and not well assessed. Liver: Liver fatty infiltrated. Aorta: Aorta completely obscured by abundant overlying bowel gas. US/US renal BI* [id number] IMPRESSION: 1. Right kidney normal. 2. Left kidney is small size within lobulated cortex characteristic of atrophy via of unknown etiology. 3. Generalized hepatic steatosis. 4. The bladder is decompressed by a Smith catheter and not well assessed. COMMENTS: Quality of examination is limited by large patient body habitus.
[2024-11-02] MEDS: ATORVASTATIN 20 MG TABLET PO (20:54)
[2024-11-02] MEDS: pantoprazole 40 mg SDV IVP (22:06)
[2024-11-03] VITALS (12 sets, daily range): BP systolic 107–145; BP diastolic 50–81; PULSE 77–89; RESP 17–20; TEMP 36.4–37.1; O2SAT 91–96
[2024-11-03 04:26] LABS: Hematocrit 34.9 % (36-47); Hemoglobin 10.60 g/dL (11.27-16.99); Mean Corpuscular HGB Conc 30.4 g/dL (30-55); Mean Corpuscular Hemoglobin 27.0 pg (27-33); Mean Corpuscular Volume 88.8 fl (85-98); Nucleated Red Blood Cells % 0 %; Platelet Count 150 10^3/cmm (157-399); Red Blood Count 3.93 10^6/uL (3.85-5.65); White Blood Count 15.43 10^3/uL (3.29-11.43)
[2024-11-03 05:10] LABS: Alanine Aminotransferase 23 U/L (0-33); Albumin Level 2.9 g/dL (3.5-5.2); Alkaline Phosphatase 152 U/L (35-105); Aspartate Amino Transferase 17 U/L (0-32); Blood Urea Nitrogen 23 mg/dL (8-23); Calcium 8.6 mg/dL (8.5-10.5); Carbon Dioxide 20 mmol/L (22-29); Chloride 103 mmol/L (98-107); Globulin 3.2 g/dL (1.3-4.6); Glucose 227 mg/dL (65-115); Magnesium 1.7 mg/dL (1.7-2.3); Osmolality Calculated 295 mOsm/kg (285-295); Sodium 137 mmol/L (136-145); Total Protein 6.1 g/dL (6.6-8.7)
[2024-11-03 05:11] LABS: Anion Gap 18.8 (5-19); Creatinine Clr Calc Pharmacy 28.8839; Potassium 4.8 mmol/L (3.5-5.1)
[2024-11-03] MEDS: heparin 5,000 unit/mL INJ 1 mL 5000 UNIT SUBCUT ×2 (08:04→21:15)
--- NOTE | 2024-11-03 09:58 | PC.CHAP ---
Pastoral Care Encounter/Spiritual Assessment Type of Contact [] Declined estate attorney visit [] Patient/Family/Request visit [] Outpatient visit [] Follow-up visit [] Physician referral [] Code/Alert [x] Routine visit [] Staff referral [] Actively dying [] Patient sleeping [] Family support [] [] Out of room [] Palliative care [] [x] Receiving care in room [] Pre-surgical visit [] Trauma [] Long length of stay [] ICU visit [] Other: Relational/Emotional Strength [] Patient feels connected with others/family/visitors/staff [] Distress [] Loneliness/isolation [] Abandonment Spirituality of Patient [] Person of Olga Lidia [] Attends Church of their Olga Lidia [] Believes in Prayer [] Reads Bible or Yarsanism materials [] There are Spiritual issues to be addressed Stem Teacher Interventions [x] Prayer [] Active listening [] Non-anxious presence [] Spiritual/emotional support [] Crisis/trauma care [] Spiritual counseling [] Bereavement support [] Provided bereavement packet [] Provided Bible/devotional materials [] Provided toy/stuffed animal, coloring book to patient or family member [] Provided Communion [] Anointing/[place] [] Salvation [] Completed spiritual assessment [] Other: Impact on Illness or Injury [] Angry [] Fearful [] Anxious [] Often cries [] Exhaustion [] Unable to work [] Unable to attend jainism [] Unable to walk/stand [] Unable to read [] Unable to drive [] Unable to eat/drink [] Unable to sleep [] Unable to be with family [] Patient intubated [] Other: Summary Time spent with patient
--- NOTE | 2024-11-03 12:07 | PC.SOCIAL ---
IMM Updated Updated pt on IMM. No questions voiced. Provided pt a copy. Initialed, dated, & timed a copy & placed in chart.
[2024-11-03 14:21] LABS: Blood Urea Nitrogen 25 mg/dL (8-23); Calcium 8.8 mg/dL (8.5-10.5); Carbon Dioxide 20 mmol/L (22-29); Chloride 100 mmol/L (98-107); Creatinine Clr Calc Pharmacy 30.8095; Glucose 261 mg/dL (65-115); Osmolality Calculated 289 mOsm/kg (285-295); Sodium 133 mmol/L (136-145)
[2024-11-03 14:23] LABS: Anion Gap 17.6 (5-19); Potassium 4.6 mmol/L (3.5-5.1)
--- NOTE | 2024-11-03 16:38 | P.PN_ITS ---
Subjective 2 Subjective: Patient was seen this morning, she follows commands, does report a cough, does report shortness of breath, no lightheadedness, no dizziness, no flank pain Vitals/I&O/Wt Last Vital Signs Temp 97.7 F 11/03/24 16:32 Pulse 85 11/03/24 16:32 Resp 17 11/03/24 16:32 BP 127/78 11/03/24 16:32 Pulse Ox 95 11/03/24 16:32 O2 Del Method Nasal Cannula 11/03/24 16:32 O2 Flow Rate 1.5 11/03/24 16:25 11/03/24 11/03/24 11/03/24 06:59 14:59 22:59 Intake Total 1210 / 1210 Output Total 400 / 2150 950 / 950 Balance -400 / -30 1210 / 1210 -950 / 260 Weight last 48 hrs Weight 76.742 kg Weight 78.608 kg Weight 78.67 kg Weight 73.482 kg Physical Exam 2 Const: COMMON NORMALS: no acute distress Eye: COMMON NORMALS: Equal, round and reactive pupils present and EOMs intact bilaterally PUPIL: Yes Equal, round and reactive pupils present Resp: COMMON NORMALS: normal respiratory effort, No retractions and No use of accessory muscles AUSCULTATION: crackles and wheezes Cardio: COMMON NORMALS: regular rate, regular rhythm, S1 normal heart sound present and S2 normal heart sound present RATE: regular rate RHYTHM: r egular rhythm HEART SOUNDS: S1 normal heart sound present and S2 normal heart sound present GI: COMMON NORMALS: Normal to inspection, nondistended, normoactive bowel sounds present and non-tender Extremity: COMMON NORMALS: no pedal edema Psych: COMMON NORMALS: mental status grossly normal Urinary Catheter Management: Smith: Cath Placed During This Visit: yes Reason for Continuing Indwelling Catheter: Other Urinary Catheter Date of Insertion: 11/01/24 Data 11/03/24 03:44 11/03/24 13:53 Micro: Microbiology 11/01/24 18:07 Urine Culture - Final Urine,Clean Catch Escherichia coli 11/01/24 18:20 Blood Culture - Preliminary Blood NEGATIVE TO DATE 11/01/24 18:15 Blood Culture - Preliminary Blood NEGATIVE TO DATE A&P Assessment and plan 1. Left lower lobe pneumonia: 2. Sepsis secondary to UTI: 3. Acute renal failure: 4. Dehydration: 5. Metabolic encephalopathy: 6. Leukocytosis: 7. Diabetes type 2: 8. Sepsis: Plan: #1 Left lower lobe pneumonia - Oxygen therapy -Vancomycin -Meropenem - DuoNeb #2 UTI with sepsis - Continue meropenem - Renal ultrasound #3Acute renal failure - Secondary to UTI from sepsis - Ending up to 1.6, IV fluids #4 Sepsis secondary to UTI, pneumonia #5 Metabolic encephalopathy secondary to UTI, sepsis, pneumonia - Neurochecks, monitor mentation #6 Diabetes type 2 - Low-dose insulin sliding scale #7 GI and DVT prophylaxis in place PDMP PDMP Reviewed: Not Reviewed Attestations 2 Medical Necessity Statement*: Patient requires hospitalization for left lower lobe pneumonia, UTI, acute renal failure Diagnoses Left lower lobe pneumonia J18.9 Sepsis secondary to UTI A41.9; N39.0 Acute renal failure N17.9 Dehydration E86.0 Metabolic encephalopathy G93.41 Leukocytosis D72.829 Diabetes type 2 E11.9 Sepsis A41.9
--- NOTE | 2024-11-03 17:30 | PC.NURSE ---
Patient had a large, soft BM and had scheduled Colace due at 1700. I held the Colace and contacted Dr. Chawla to inform him of this. He provided a verbal order to hold Colace for this dose and to re-assess with 0500 dose on 11/04.
[2024-11-03] MEDS: pantoprazole 40 mg SDV IVP (21:13)
[2024-11-03] MEDS: ATORVASTATIN 20 MG TABLET PO (21:15)
[2024-11-04 04:00] VITALS: BP 101/55; PULSE 72; RESP 18; TEMP 36.3; O2SAT 95
[2024-11-04 05:13] LABS: Hematocrit 34.4 % (36-47); Hemoglobin 10.70 g/dL (11.27-16.99); Mean Corpuscular HGB Conc 31.1 g/dL (30-55); Mean Corpuscular Hemoglobin 26.3 pg (27-33); Mean Corpuscular Volume 84.5 fl (85-98); Nucleated Red Blood Cells % 0 %; Platelet Count 215 10^3/cmm (157-399); Red Blood Count 4.07 10^6/uL (3.85-5.65); White Blood Count 8.27 10^3/uL (3.29-11.43)
[2024-11-04 05:48] LABS: Alanine Aminotransferase 36 U/L (0-33); Albumin Level 2.8 g/dL (3.5-5.2); Alkaline Phosphatase 134 U/L (35-105); Anion Gap 15.7 (5-19); Aspartate Amino Transferase 37 U/L (0-32); Blood Urea Nitrogen 25 mg/dL (8-23); Calcium 8.8 mg/dL (8.5-10.5); Carbon Dioxide 24 mmol/L (22-29); Chloride 104 mmol/L (98-107); Creatinine Clr Calc Pharmacy 35.3354; Globulin 3.9 g/dL (1.3-4.6); Glucose 181 mg/dL (65-115); Osmolality Calculated 297 mOsm/kg (285-295); Potassium 4.7 mmol/L (3.5-5.1); Sodium 139 mmol/L (136-145); Total Protein 6.7 g/dL (6.6-8.7)
[2024-11-04 05:58] VITALS: PULSE 71
[2024-11-04 07:24] LABS: Slide Review Slide Review Perform
[2024-11-04 07:48] VITALS: BP 125/69; PULSE 70; RESP 16; TEMP 36.7; O2SAT 93
[2024-11-04 08:14] VITALS: PULSE 74; RESP 16; O2SAT 93
[2024-11-04] MEDS: heparin 5,000 unit/mL INJ 1 mL 5000 UNIT SUBCUT (09:31)
--- NOTE | 2024-11-04 10:23 | PC.CHAP ---
Pastoral Care Encounter/Spiritual Assessment Type of Contact [] Declined meteorologist liaison visit [] Patient/Family/Request visit [] Outpatient visit [] Follow-up visit [] Physician referral [] Code/Alert [] Routine visit [] Staff referral [] Actively dying [x] Patient sleeping [] Family support [] [] Out of room [] Palliative care [] [] Receiving care in room [] Pre-surgical visit [] Trauma [] Long length of stay [] ICU visit [] Other: Relational/Emotional Strength [] Patient feels connected with others/family/visitors/staff [] Distress [] Loneliness/isolation [] Abandonment Spirituality of Patient [] Person of Olga Lidia [] Attends Gnosticism of their Olga Lidia [] Believes in Prayer [] Reads Bible or Anglican materials [] There are Spiritual issues to be addressed Mmi Teacher Interventions [] Prayer [] Active listening [] Non-anxious presence [] Spiritual/emotional support [] Crisis/trauma care [] Spiritual counseling [] Bereavement support [] Provided bereavement packet [] Provided Bible/devotional materials [] Provided toy/stuffed animal, coloring book to patient or family member [] Provided Communion [] Anointing/[place] [] Salvation [] Completed spiritual assessment [] Other: Impact on Illness or Injury [] Angry [] Fearful [] Anxious [] Often cries [] Exhaustion [] Unable to work [] Unable to attend mormon [] Unable to walk/stand [] Unable to read [] Unable to drive [] Unable to eat/drink [] Unable to sleep [] Unable to be with family [] Patient intubated [] Other: Summary Time spent with patient
--- NOTE | 2024-11-04 11:12 | PM.DCS ---
Discharge Providers Date of Admission: 11/01/24 20:30 Date of Discharge: November 04, 2024 Attending Provider at Admission: Gia Sánchez MD Attending Provider at Discharge: Farshad Chawla MD Primary Care Provider: Alem Auguste Diagnoses at Discharge Discharge Diagnosis 1. Left lower lobe pneumonia: 2. Sepsis secondary to UTI: 3. Acute renal failure: 4. Dehydration: 5. Metabolic encephalopathy: 6. Leukocytosis: 7. Diabetes type 2: 8. Sepsis: Reason for Visit Reason for Visit: AMS Hospital Course Hospital Course This is a 79-year-old female with a past medical history of COPD, type 2 diabetes mellitus, CKD, CAD, CVA, who presents to [facility] for altered mental status Patient was admitted to [facility] for left lower lobe pneumonia, received broad-spectrum antibiotic therapy, oxygen therapy, overall clinically improved, discharged on p.o. antibiotics For patient's UTI with sepsis, received IV antibiotics, overall clinically improved, discharged on p.o. robotics For acute renal failure, secondary to UTI, sepsis, received IV fluids, over close improved, creatinine discharge 1.6 4 metabolic encephalopathy sec to UTI, sepsis, pneumonia, on discharge is alert oriented x 2, following all commands Physical Exam Const: COMMON NORMALS: no acute distress ORIENTATION/CONSCIOUSNESS: Yes awake, Yes oriented to person and Yes oriented to place Resp: COMMON NORMALS: normal respiratory effort, No retractions, No use of accessory muscles and clear to auscultation bilaterally AUSCULTATION: clear to auscultation bilaterally Cardio: COMMON NORMALS: regular rate, regular rhythm, S1 normal heart sound present and S2 normal heart sound present RATE: regular rate RHYTHM: regular rhythm HEART SOUNDS: S1 normal heart sound present and S2 normal heart sound present GI: COMMON NORMALS: Normal to inspection, nondistended, normoactive bowel sounds present and non-tender Extremity: COMMON NORMALS: no calf tenderness and no pedal edema Neuro: COMMON NORMALS: CN's II-XII intact bilaterally, moves all extremities and no focal motor deficits SENSORIUM/ORIENTATION: Yes oriented to person and Yes oriented to place Psych: COMMON NORMALS: mental status grossly normal Urinary Catheter Management: Smith: Cath Placed During This Visit: yes Reason for Continuing Indwelling Catheter: Other Urinary Catheter Date of Insertion: 11/01/24 Discharge Data Studies Completed and Pending Completed Studies During Hospitalization Category Date Time Status CT head wo con* [id number] Stat Cat Scan 11/01/24 18:02 Completed XR chest 1V portable [id number] Stat Exams 11/01/24 18:02 Completed US renal BI* [id number] Routine Ultrasound 11/02/24 13:08 Completed Pending at discharge Category Date Time Status Blood Culture Stat Lab 11/01/24 18:20 Results Complete Blood Count w/Auto AM LABS Lab 11/05/24 04:00 Ordered Complete Blood Count w/Auto AM LABS Lab 11/06/24 04:00 Ordered Comprehensive Metabolic Panel AM LABS Lab 11/05/24 04:00 Ordered Comprehensive Metabolic Panel AM LABS Lab 11/06/24 04:00 Ordered Radiology Impressions Chest X-Ray 11/01/24 18:02 IMPRESSION: Left mid upper lung zone opacity suggestive of pneumonia. Head CT 11/01/24 18:02 IMPRESSION: No acute intracranial abnormality. Renal Ultrasound 11/02/24 13:08 IMPRESSION: 1. Right kidney normal. 2. Left kidney is small size within lobulated cortex characteristic of atrophy via of unknown etiology. 3. Generalized hepatic steatosis. 4. The bladder is decompressed by a Smith catheter and not well assessed. COMMENTS: Quality of examination is limited by large patient body habitus. Laboratory Results WBC 8.27 10^3/uL (3.29-11.43) 11/04/24 04:59 RBC 4.07 10^6/uL (3.85-5.65) 11/04/24 04:59 Hgb 10.70 g/dL (11.27-16.99) L 11/04/24 04:59 Hct 34.4 % (36-47) L 11/04/24 04:59 MCV 84.5 fl (85-98) L 11/04/24 04:59 MCH 26.3 pg (27-33) L 11/04/24 04:59 MCHC 31.1 g/dL (30-55) 11/04/24 04:59 RDW 16.4 % (12.1-15.1) H 11/04/24 04:59 Plt Count 215 10^3/cmm (157-399) D 11/04/24 04:59 MPV 9.0 fL (7.4-10.4) 11/04/24 04:59 Neut % (Auto) 59.4 % 11/04/24 04:59 Lymph % (Auto) 17.2 % 11/04/24 04:59 [place] % (Auto) 10.6 % 11/04/24 04:59 Eos % (Auto) 6.2 % 11/04/24 04:59 Baso % (Auto) 0.7 % 11/04/24 04:59 Neut # (Auto) 4.91 10^3/uL (1.8-7.7) 11/04/24 04:59 Lymph # (Auto) 1.4 10^3/uL (0.8-4.8) 11/04/24 04:59 [place] # (Auto) 0.9 10^3/uL (0.2-0.9) 11/04/24 04:59 Eos # (Auto) 0.5 10^3/uL (0.0-0.8) 11/04/24 04:59 Baso # (Auto) 0.1 10^3/uL (0.0-0.1) 11/04/24 04:59 Nucleated RBC % (auto) 0 % 11/04/24 04:59 Nucleated RBCs # 0.0 /100WBC 11/04/24 04:59 Specimen Type Arterial 11/01/24 18:18 Sample Site Radial, left 11/01/24 18:18 ABG pH 7.46 (7.35-7.45) H 11/01/24 18:18 ABG pCO2 34.3 mmHg (35-45) L 11/01/24 18:18 ABG pO2 65.0 mmHg (80.0-100.0) L 11/01/24 18:18 ABG PO2/FiO2 Ratio 232 11/01/24 18:18 ABG HCO3 24.1 mmol/L (22-26) 11/01/24 18:18 ABG Base Excess 0.5 mmol/L (-2.0-2.0) 11/01/24 18:18 David Test Pos 11/01/24 18:18 Hematocrit 35.6 % (37-47) L 11/01/24 18:18 O2 Delivery Device Nc 11/01/24 18:18 O2 Liters/Min 2.0 % 11/01/24 18:18 FiO2 28.0 % 11/01/24 18:18 Sleever ID [place] 11/01/24 18:18 Sodium 139 mmol/L (136-145) 11/04/24 04:59 Potassium 4.7 mmol/L (3.5-5.1) 11/04/24 04:59 Chloride 104 mmol/L (98-107) 11/04/24 04:59 Carbon Dioxide 24 mmol/L (22-29) 11/04/24 04:59 Anion Gap 15.7 (5-19) 11/04/24 04:59 BUN 25 mg/dL (8-23) H 11/04/24 04:59 Creatinine 1.3 mg/dL (0.5-0.9) H 11/04/24 04:59 GFR Calculation Not Reportable 11/04/24 04:59 Glucose 181 mg/dL (65-115) H 11/04/24 04:59 POC Glucose 178 mg/dL (70-110) H 11/04/24 06:28 Calculated Osmolality 297 mOsm/kg (285-295) H 11/04/24 04:59 Lactic Acid 2.1 mmol/L (0.5-2.2) 11/01/24 18:15 Lactic Acid (Sepsis) 1.8 mmol/L (0.5-2.2) 11/01/24 21:03 Calcium 8.8 mg/dL (8.5-10.5) 11/04/24 04:59 Phosphorus 3.2 mg/dL (2.5-4.5) 11/03/24 03:44 Magnesium 1.7 mg/dL (1.7-2.3) 11/03/24 03:44 Total Bilirubin 0.4 mg/dL (0.15-1.2) 11/04/24 04:59 AST 37 U/L (0-32) H 11/04/24 04:59 ALT 36 U/L (0-33) H 11/04/24 04:59 Alkaline Phosphatase 134 U/L (35-105) H 11/04/24 04:59 C-Reactive Protein 301.4 mg/L (0.0-4.9) H 11/01/24 18:15 Total Protein 6.7 g/dL (6.6-8.7) 11/04/24 04:59 Albumin 2.8 g/dL (3.5-5.2) L 11/04/24 04:59 Globulin 3.9 g/dL (1.3-4.6) 11/04/24 04:59 Procalcitonin 0.67 ng/mL (0-0.5) H 11/01/24 18:15 Urine Color Yellow (Yellow) 11/01/24 18:07 Urine Appearance Cloudy (CLEAR) A 11/01/24 18:07 Urine pH 5.5 (5-7) 11/01/24 18:07 Ur Specific [place] 1.020 (1.005-1.030) 11/01/24 18:07 Urine Protein 2+ (Negative) A 11/01/24 18:07 Urine Glucose (UA) Trace (Normal) H 11/01/24 18:07 Urine Ketones Trace (Negative) 11/01/24 18:07 Urine Blood 2+ (Negative) A 11/01/24 18:07 Urine Nitrate Positive (Negative) A 11/01/24 18:07 Urine Bilirubin Negative (Negative) 11/01/24 18:07 Urine Urobilinogen 1.0 mg/dL (Negative) 11/01/24 18:07 Ur Leukocyte Esterase 2+ (Negative) A 11/01/24 18:07 Urine RBC 3-5 /hpf (0-2) 11/01/24 18:07 Urine WBC 51-100 /hpf (0-5) H 11/01/24 18:07 Ur Squamous Epith Cells 0-5 /hpf (0-5) 11/01/24 18:07 Amorphous Sediment Not Reportable 11/01/24 18:07 Urine Bacteria 2+ /hpf (NONE) H 11/01/24 18:07 Hyaline Casts 9.91 /lpf 11/01/24 18:07 Influenza A (PCR) Negative (Negative) 11/01/24 19:18 Influenza Type B (PCR) Negative (Negative) 11/01/24 19:18 RSV (PCR) Negative (Negative) 11/01/24 19:18 SARS-CoV-2 (PCR) Negative (Negative) 11/01/24 19:18 Vitals Last Vital Signs Temp 98.1 F 11/04/24 07:48 Pulse 74 11/04/24 08:14 Resp 16 11/04/24 08:14 BP 125/69 11/04/24 07:48 Pulse Ox 93 11/04/24 08:14 O2 Del Method Nasal Cannula 11/04/24 08:14 O2 Flow Rate 1.5 11/04/24 08:14 Discharge Plan Discharge Patient Disposition: Xfer SNF Condition: Stable Prescriptions: New levofloxacin 750 mg tablet 750 mg PO DAILY 5 Days Qty: 5 0RF Continued hydrocodone-acetaminophen 5-325 mg tablet 1 tab PO Q4H PRN (Reason: Pain) Mounjaro 2.5 mg/0.5 mL pen injector 10 mg SUBCUT ONCE duloxetine 60 mg Capsule, Delayed Rel Sprinkle 60 mg PO DAILY Rx Instructions: Take with 30mg tablet to equal 90mg atorvastatin 20 mg tablet 20 mg PO BEDTIME furosemide 40 mg tablet 40 mg PO DAILY PRN (Reason: Swelling) Qty: 2 0RF polyethylene glycol 3350 [Miralax] 17 gram/dose Powder See Rx Instructions .ROUTE .COMPLEX Rx Instructions: TAKE 17 g BY MOUTH MIXED IN 6 TO 8 OUNCES LIQUID DAILY. amino acids-protein hydrolys 15-101 gram-kcal/30 mL Liquid 1 ea PO DAILY pantoprazole 40 mg tablet,delayed release (DR/EC) 40 mg PO BID 30 Days Qty: 60 0RF acetaminophen [Tylenol] 325 mg Tablet 650 mg PO Q6H PRN (Reason: pain/fever) magnesium hydroxide [Milk of Magnesia] 400 mg/5 mL Suspension 30 ml PO DAILY PRN (Reason: Constipation) bisacodyl 10 mg Suppository 10 mg [place] DAILY PRN (Reason: Constipation) Fleet Enema 19-7 gram/118 mL Enema 118 ml [place] DAILY PRN (Reason: Constipation) docusate sodium [Colace] 100 mg Capsule 100 mg PO DAILY ketoconazole 2 % Shampoo 1 applic TOPICAL .2XWEEKLY PRN (Reason: lather) loperamide [Imodium A-D] 2 mg Capsule 2 mg PO DAILY ondansetron HCl 4 mg Tablet 4 mg PO .Q4-6H gabapentin 100 mg capsule 100 mg PO BID fluticasone furoate-vilanterol [Breo Ellipta] 100-25 mcg/dose blister with device 1 inh INHALATION DAILY Spiriva Respimat 1.25 mcg/actuation mist 1 puff INHALATION DAILY sennosides-docusate sodium [Stool Softener-Laxative] 8.6-50 mg Tablet 1 tab PO DAILY Qty: 30 0RF insulin lispro [Humalog KwikPen Insulin] 100 unit/mL insulin pen See Rx Instructions .ROUTE .COMPLEX PRN (Reason: blood sugar) Qty: 15 0RF Rx Instructions: Inject, subcut, 3 times daily, after meals, based on sliding scale provided multivitamin Tablet 1 tab PO DAILY aspirin 325 mg Tablet,Delayed Release (Dr/Ec) 325 mg PO DAILY Discontinued insulin lispro 100 unit/mL insulin pen 20 unit SUBCUT TIDWM Rx Instructions: Take with meals added with the sliding scale insulin degludec 100 unit/mL (3 mL) insulin pen 30 unit SUBCUT DAILY Rx Instructions: 30units in the morning and 80 units at bedtime insulin degludec [Tresiba FlexTouch U-100] 100 unit/mL (3 mL) insulin pen 80 unit SUBCUT BEDTIME Discharge Order = DC NOW: Discharge Order (Routine); Ordered 11/04/24 Ordered By: Farshad Chawla Referrals: [facility] [Outside] Alem Auguste PA [Primary Care Provider, [facility]] Discharge Diet: Diabetic Discharge Activity: Resume usual activity Patient Instructions: Altered Mental Status (ED), Opioid Safety, Patient Portal & Krista Instructions Activity Restrictions/Additional Instructions: -Please monitor your blood sugars closely -Monitor your blood sugars 3 times daily as after meals -Please record your blood sugars, and a blood sugar log -For your NovoLog -Please inject blood sugar after meals based on sliding scale provided -Do not inject insulin if you do not eat as hypoglycemia kills -This is a NovoLog sliding scale -Insulin sliding ?fingerstick? Insulin ?141-180?0 units/sq 181-220?2 units/sq ?221-260?4 units/sq ?261-300 6 units/sq ?301-350?8 units/sq ?351-400 10 units/sq ?401-450?12 units/sq >450? 14units/sq -If your blood sugar is greater than 500 go to the emergency room -If your blood sugar is less than 60 or at anytime you feel lightheaded or dizzy or diaphoretic or have chest palpitations check your blood sugar, and eat a hard candy or drink orange juice and go immediately to the emergency room -Remember hypoglycemia kills, so if his blood sugar is less than 60 we have to increase it by taking in a sugary meal such as a hard candy or orange juice and go to the emergency room -If you have any questions please call us where here to help Discharge Attestations Time Spent in Discharge Care*: greater than 30 min Status at Discharge: Cognitive status at discharge: mildly impaired cognition, Behavioral status at discharge: cooperative, Quality Metrics Clinical Quality Measures [ No reported AMI, CVA or VTE this stay] Coding Level of Care Code 72250 Total time (in minutes) for Discharge: 45 Diagnoses Left lower lobe pneumonia J18.9 Sepsis secondary to UTI A41.9; N39.0 Acute renal failure N17.9 Dehydration E86.0 Metabolic encephalopathy G93.41 Leukocytosis D72.829 Diabetes type 2 E11.9 Sepsis A41.9
[2024-11-04 11:25] VITALS: BP 122/67; PULSE 77; RESP 18; TEMP 36.8; O2SAT 97
--- NOTE | 2024-11-04 12:54 | PC.NURSE ---
This nurse called report to IRAM Ohara at [facility] at [phone]. They are heading our way to pick pt up now.
== END 2024-11-04 14:07 | disposition skilled nursing facility (03) | DRG 871 ==
LOC: ER 18:37 → MEDSURG 21:12
PROVIDERS: Admitting Provider Internal Medicine; Emergency Provider Emergency Medicine; PCP Physician Assistant; Visit Provider Family Medicine
DX: A41.9 Sepsis, unspecified organism (principal); G93.41 Metabolic encephalopathy; J18.9 Pneumonia, unspecified organism; N39.0 Urinary tract infection, site not specified; J44.0 Chronic obstructive pulmonary disease with (acute) lower respiratory infection; N17.9 Acute kidney failure, unspecified; R65.20 Severe sepsis without septic shock; E86.0 Dehydration; E11.22 Type 2 diabetes mellitus with diabetic chronic kidney disease; N18.2 Chronic kidney disease, stage 2 (mild); E11.42 Type 2 diabetes mellitus with diabetic polyneuropathy; I25.10 Atherosclerotic heart disease of native coronary artery without angina pectoris; F32.A Depression, unspecified; E66.9 Obesity, unspecified; G47.33 Obstructive sleep apnea (adult) (pediatric); Z79.85 Long-term (current) use of injectable non-insulin antidiabetic drugs; Z79.891 Long term (current) use of opiate analgesic; Z79.51 Long term (current) use of inhaled steroids; Z79.82 Long term (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; Z79.4 Long term (current) use of insulin; Z86.73 Personal history of transient ischemic attack (TIA), and cerebral infarction without residual deficits; Z87.01 Personal history of pneumonia (recurrent); Z68.29 Body mass index [BMI] 29.0-29.9, adult; Z88.0 Allergy status to penicillin
CPT/HCPCS: 36415; 36416; 36600; 51702; 70450; 71045; 76770; 80048; 80053; 81001; 82803; 82962; 83605; 83735; 84100; 84145; 85025; 86140; 87040; 87077; 87086; 87186; 87637; 94640; 96365; 96372; 97162; 97165; 97530; 99285; J1644; J1815; J1956; J2185; J2470; J3372; J3373; J7030; J7050; J9999